=== PATIENT | female | born 1975 | race Caucasian/White ===

== ENCOUNTER → 2018-05-28 09:00 | Outpatient (CLI) | payer MEDICARE, MEDICAID, SELFPAY | PROVIDERS: PCP Nurse Practitioner Family; Visit Provider Orthopaedic Surgery | DX: Z47.89 Encounter for other orthopedic aftercare (principal); M89.8X7 Other specified disorders of bone, ankle and foot; M25.572 Pain in left ankle and joints of left foot; M76.822 Posterior tibial tendinitis, left leg ==

== ENCOUNTER → 2018-06-25 10:52 | Outpatient (BNVA) | payer MEDICARE, MEDICAID, SELFPAY | PROVIDERS: Visit Provider Orthopaedic Surgery | DX: Z47.89 Encounter for other orthopedic aftercare (principal); M89.8X7 Other specified disorders of bone, ankle and foot | CPT/HCPCS: 99213 ==

== ENCOUNTER 2018-06-25 11:12 | Outpatient (REF) | payer MEDICARE, MEDICAID, SELFPAY ==
[2018-06-25 12:43] LABS: Bilirubin Negative (Negative); Blood Negative (Negative); Clarity Clear; Glucose Negative (Negative); Ketones Negative (Negative); Leukocyte Esterase Negative (Negative); Nitrite Negative (Negative); Urobilinogen 0.2 EU/dL (Up TO 0.2)
== END 2018-06-25 11:32 ==
LOC: NCHCN 11:12
PROVIDERS: PCP Nurse Practitioner Family; Visit Provider Nurse Practitioner
DX: R35.0 Frequency of micturition (principal)
CPT/HCPCS: 81003

== ENCOUNTER 2018-09-03 09:29 | Outpatient (CLI) | payer MEDICARE, MEDICAID, SELFPAY ==
--- NOTE | 2018-09-03 13:09 | DI.RAD_ITS ---
SYMPTOMS/DIAGNOSIS: COUGH, R05 PA AND LATERAL CHEST: The heart is normal in size. The lungs are clear. The mediastinal structures and pleura appear intact. CONCLUSION: Normal chest.
== END 2018-09-03 09:49 ==
PROVIDERS: PCP Nurse Practitioner Family; Visit Provider Nurse Practitioner Family
DX: R05 Cough (principal)
CPT/HCPCS: 71046

== ENCOUNTER 2018-12-05 12:18 | Outpatient (REF) | payer MEDICARE, MEDICAID, SELFPAY ==
[2018-12-05 13:13] LABS: HCT 47.2 % (36.0-46.0); HGB 15.9 g/dL (12.0-15.5); Mean Corp. HGB Concentration 33.7 g/dL (32.0-36.0); Mean Corpuscular Hemoglobin 26.9 pg (27.0-33.0); Mean Corpuscular Volume 79.9 fL (80-95); Mean Platelet Volume 9.9 fL (8.0-11.0); Platelet Count 289 x1000/uL (130-400); RBC 5.91 m/cumm (4.00-5.20); RBC Distribution Width 14.9 % (11.7-14.6); White Blood Cell Count 11.56 k/cumm (4.4-10.8)
[2018-12-05 13:35] LABS: Anion Gap 9.3 mmol/L (3-11); BUN 19 mg/dL (7-18); CO2 28.7 mmol/L (21.0-32.0); CREATININE 1.05 mg/dL (0.55-1.02); Calcium 9.4 mg/dL (8.5-10.1); Chloride 101 mmol/L (98-107); Estimated GFR 56.67 (mL/min/1.73m2); Glucose 115 mg/dL (70-100); Potassium 4.1 mmol/L (3.5-5.1); Sodium 139 mmol/L (136-145); TSH (W/Ref FT4) 2.95 uIU/mL (0.358-3.74)
== END 2018-12-05 12:38 ==
LOC: NCHCN 12:18
PROVIDERS: PCP Nurse Practitioner Family; Visit Provider Nurse Practitioner Family
DX: E03.9 Hypothyroidism, unspecified (principal); I10 Essential (primary) hypertension; R53.83 Other fatigue
CPT/HCPCS: 80048; 85027; 84443

== ENCOUNTER 2018-12-30 00:49 | Outpatient (CLI) | payer MEDICARE, MEDICAID, SELFPAY ==
--- NOTE | 2018-12-30 10:23 | DI.US_ITS ---
SYMPTOMS/DIAGNOSIS: LOCALIZED SWELLING ON NECK, R22.1 THYROID ULTRASOUND: Thyroid ultrasound was performed according to the usual protocol. Right thyroid lobe measures 46 x 15 x 10 mm and left thyroid lobe measures 71 x 34 x 55 mm. There is a large, predominantly cystic but complex mass of the left thyroid lobe measuring up to about 5 cm in diameter. There is a solid 21 mm in diameter mass of the upper pole of the right thyroid lobe. CONCLUSION: Bilateral dominant thyroid masses. No previous examinations available for comparison. Biopsy may be considered if clinically appropriate to exclude carcinoma.
== END 2018-12-30 01:09 ==
PROVIDERS: PCP Nurse Practitioner Family; Visit Provider Nurse Practitioner Family
DX: R22.1 Localized swelling, mass and lump, neck (principal); D49.7 Neoplasm of unspecified behavior of endocrine glands and other parts of nervous system
CPT/HCPCS: 76536

== ENCOUNTER → 2019-09-30 08:44 | Outpatient (BNVA) | payer MEDICARE, MEDICAID, SELFPAY | PROVIDERS: PCP Student in an Organized Health Care Education/Training Program; Referring Provider Student in an Organized Health Care Education/Training Program; Visit Provider Surgery | DX: K21.9 Gastro-esophageal reflux disease without esophagitis (principal); I10 Essential (primary) hypertension | CPT/HCPCS: 99202; 99213 ==

== ENCOUNTER 2019-10-08 06:12 | Day surgery (SDC) | payer MEDICARE, MEDICAID, SELFPAY ==
[2019-10-08 06:25] VITALS: BP 124/81; PULSE 72; RESP 16; TEMP 36.7; O2SAT 96
--- NOTE | 2019-10-08 06:41 | ENDO_ITS ---
Date of service: 10/08/19 Time of Service: 07:56 Endoscopy Report DATE OF PROCEDURE: 10/08/19 PRE-OP DIAGNOSIS: GERD POST-OP DIAGNOSIS: other (mild gastritis) PROCEDURE: EGD with bx SURGEON: Steph Paula ANESTHESIA: other (General/ ASA 2/ Krish Cuevas, STEPHANIE) ESTIMATED BLOOD LOSS: 3 PATHOLOGY: other (Pylorus bx, Antrum bx) COMPLICATIONS: None DISPOSITION: same day INDICATIONS: Mrs. Alejandre is a pleasant 44-year-old female who has been having some reflux symptoms for a few years. She was started on pantoprazole 20 mg daily which has helped quite a bit with her symptoms. She still continues to have episodes of waking up in the morning choking on acid. This happens about 1-2 times a month. She does not have any dysphasia. She has not noted any hoarseness, or weight loss. FINDINGS: mild inflammation in the body of the stomach, moderate inflammation around the pylorus PROCEDURE DESCRIPTION: After informed consent was obtained the patient was take to the procedure room and placed in a supine position. Monitors were applied and a time out was done. The patients name, date of , procedure type, allergies to medications and metal in their body was reviewed. A bite block was placed and the patient was sedated. Once sedated and comfortable the gastroscope was advanced through the oropharynx which was grossly normal into the esophagus. The esophagus was noted to be normal. The scope was advanced into the stomach and through the pylorus into the 3rd portion of the duodenum. The duodenum was noted to be normal. A small amount of food was noted within the duodenum. The scope was retracted back into the stomach. Moderate inflammation was noted around the pylorus and mild inflammation was noted in the antrum. Biopsies were done of the antrum to rule out H. pylori. There were no ulcers. Biopsies were also done of the pylorus. The scope was retro-flexed. The cardia and fundus were noted to be normal. There was no hiatal hernia noted. The scope was retracted back into the esophagus. The Z line was regular. The GE junction was at 35 cm. The scope was removed and the patient was woken up and taken back to [facility] in stable condition. Follow up: 2 weeks in the office
--- NOTE | 2019-10-08 06:52 | W.PM.DSUDISC ---
Discharge Plan Disposition Patient Disposition: HOME Condition: Good Discharge Details Reason For Visit: GERD Attending Provider: Steph Paula Primary Care Provider: Brittany Muhammad Home Meds and New Rx's Prescriptions: New pantoprazole 40 mg tablet,delayed release (DR/EC) 40 mg PO DAILY Qty: 30 RF: 0 Continued lamotrigine [Subvenite] 200 mg tablet 200 mg PO DAILY Qty: 90 RF: 3 gabapentin 600 mg tablet 600 mg PO BID Qty: 90 RF: 6 citalopram 20 mg tablet 20 mg PO DAILY Qty: 90 RF: 1 Hold Instructions: Changed by Provider losartan 25 mg tablet 25 mg PO DAILY Qty: 90 RF: 3 hydrochlorothiazide 12.5 mg tablet 12.5 mg PO DAILY Qty: 90 RF: 3 levothyroxine 137 mcg tablet 137 mcg PO DAILY RF: 0 albuterol sulfate [ProAir HFA] 90 mcg/actuation HFA aerosol inhaler 2 puff IH Q6H PRN (Reason: shortness of breath or wheezing) Qty: 8.5 RF: 1 clonazepam 0.5 mg tablet 0.5 mg PO QHS Qty: 20 RF: 1 triamcinolone acetonide 0.5 % ointment 1 applic TP TID Qty: 30 RF: 1 norgestimate-ethinyl estradiol 0.18/0.215/0.25 mg-25 mcg tablet 1 tab PO DAILY RF: 0 Discontinued pantoprazole 20 mg tablet,delayed release (DR/EC) 20 mg PO DAILY Qty: 90 RF: 3 Discharge Instructions Instructions: Gastritis (DC), Diet for Stomach Ulcers and Gastritis (GEN) Additional Instructions: Findings: Gastritis Follow up: 2 weeks Medication: Increase Pantoprazole to 40 mg daily for 30 days Please call if you develop: fevers >101.5 Nausea or Vomiting Abdominal pain that is not transient DAY SURGERY UNIT POST ENDOSCOPY INSTRUCTIONS 1. Because there will be medication in your system for the next 24 hours, you may feel a little sleepy. Your coordination will be affected. Therefore: a. Do not drive or operate dangerous equipment for 24 hours. b. Do not drink alcohol beverages for 24 hours (not even beer). c. Plan to go home and rest for the day. 2. Generally there are no restrictions on your activity after a day or so has gone by, but you may feel a bit fatigued for a few days. 3 After you arrive home you may have a light meal and return to a normal diet as you can tolerate it without feeling sick to your stomach. 4. After surgery, you may feel pain or discomfort. This should be only transient, but if it persists please contact your doctor. 5. If there are any questions regarding the findings of your procedure, please feel free to contact your doctor. 6. If you are unable to contact your doctor with a problem, contact the hospital at [phone]. 7. Continue all your regular medications unless directed otherwise. I understand the above instructions and have no questions. Signature of Patient or Responsible Adult Escort Date/Time Name of Responsible Adult Escort Signature of Nurse Date/Time Activity:: Activity as Tolerated Diet:: low acid Discharge Orders Discharge Orders: Discharge Order (Routine); Ordered 10/08/19 Ordered By: Steph Paula DS: Diagnosis Discharge Diagnosis (1) Gastritis determined by endoscopy: Status: Acute
[2019-10-08] MEDS: Lactated Ringers 1,000 ML 80 ML IV (07:00)
--- NOTE | 2019-10-08 07:48 | STOM_PTH ---
PATIENT: Genie Alejandre LOC: [facility] U#:[id number] AGE/SX: 44/F ROOM: RE10/08/[address]: Steph Paula MD : 1975 BED: DIS: 10/08/2019 SPEC #: [id number] RECD: 10/08/19 12:37 STATUS: SATHYA REQ #: [id number] KRZYSZTOF: 10/08/19 07:[address]: Steph Paula DEPT: Surgical Specimen RECD BY: Jamia Hendrickson ENTERED: 10/08/19 12:41 SP TYPE: STOMACH OTHR DR: Brittany Muhammad DO Tissues: 1 - STOMACH BIOPSY 2 - STOMACH BIOPSY Procedures: GROSS AND MICRO LEVEL 4 IMMUNOPEROXIDASE STAIN Comments: [id number]
[2019-10-08 08:32] VITALS: BP 107/69; PULSE 67; RESP 16; TEMP 36.3; O2SAT 98
== END 2019-10-08 08:56 | disposition home or self-care (01) ==
PROVIDERS: PCP Student in an Organized Health Care Education/Training Program; Visit Provider Surgery
PROC: 0DJ68ZZ Inspection of Stomach, Via Natural or Artificial Opening Endoscopic (ICD-10-PCS; CPT 43235; principal; 2019-10-08 07:30)
DX: K21.9 Gastro-esophageal reflux disease without esophagitis (principal); K29.00 Acute gastritis without bleeding; K31.89 Other diseases of stomach and duodenum; I10 Essential (primary) hypertension; G47.33 Obstructive sleep apnea (adult) (pediatric)
CPT/HCPCS: 43239; 81025; 88305; 88361; J2001

== ENCOUNTER → 2019-10-21 09:20 | Outpatient (BNVA) | payer MEDICARE, MEDICAID, SELFPAY | PROVIDERS: PCP Student in an Organized Health Care Education/Training Program; Referring Provider Student in an Organized Health Care Education/Training Program; Visit Provider Surgery | DX: K29.60 Other gastritis without bleeding (principal) | CPT/HCPCS: 99212; 99213 ==

== ENCOUNTER 2019-11-19 03:22 | Outpatient (CLI) | payer MEDICARE, MEDICAID, SELFPAY ==
[2019-11-19 15:30] LABS: Anion Gap 9.9 mmol/L (3-11); BUN 18 mg/dL (7-18); CO2 26.1 mmol/L (21.0-32.0); CREATININE 1.15 mg/dL (0.55-1.02); Calcium 9.4 mg/dL (8.5-10.1); Chloride 104 mmol/L (98-107); Glucose 141 mg/dL (74-106); Potassium 4.7 mmol/L (3.5-5.1); Sodium 140 mmol/L (136-145)
== END 2019-11-19 03:42 ==
PROVIDERS: PCP Student in an Organized Health Care Education/Training Program; Visit Provider Student in an Organized Health Care Education/Training Program
DX: E28.2 Polycystic ovarian syndrome (principal)
CPT/HCPCS: 36415; 80048

== ENCOUNTER 2020-02-13 02:14 | Outpatient (CLI) | payer MEDICARE, MEDICAID, SELFPAY ==
[2020-02-13 14:33] LABS: HCT 42.2 % (36.0-46.0); HGB 14.1 g/dL (12.0-15.5); Mean Corp. HGB Concentration 33.4 g/dL (32.0-36.0); Mean Corpuscular Hemoglobin 27.2 pg (27.0-33.0); Mean Corpuscular Volume 81.3 fL (80-95); Mean Platelet Volume 9.3 fL (8.0-11.0); Platelet Count 299 x1000/uL (130-400); RBC 5.19 m/cumm (4.00-5.20); RBC Distribution Width 14.4 % (11.7-14.6); White Blood Cell Count 12.41 k/cumm (4.4-10.8)
[2020-02-13 14:42] LABS: Hemoglobin A1C 6.3 % (3.8-5.6)
[2020-02-13 15:20] LABS: ALT 17 U/L (14-59); AST 17 U/L (15-37); Albumin 3.1 g/dL (3.4-5.0); Alkaline Phosphatase 64 U/L (46-116); BUN 18 mg/dL (7-18); Bilirubin, Total 0.3 mg/dL (0.2-1.0); CREATININE 1.26 mg/dL (0.55-1.02); Calcium 9.1 mg/dL (8.5-10.1); Chloride 100 mmol/L (98-107); Estimated GFR 45.72 (mL/min/1.73m2); Glucose 134 mg/dL (74-106); Potassium 4.2 mmol/L (3.5-5.1); Sodium 133 mmol/L (136-145); Total Protein 6.3 g/dL (6.4-8.2)
== END 2020-02-13 02:34 ==
PROVIDERS: PCP Student in an Organized Health Care Education/Training Program; Visit Provider Student in an Organized Health Care Education/Training Program
DX: I10 Essential (primary) hypertension (principal); E11.9 Type 2 diabetes mellitus without complications; E28.2 Polycystic ovarian syndrome; R53.83 Other fatigue; K29.70 Gastritis, unspecified, without bleeding; J45.909 Unspecified asthma, uncomplicated; G47.33 Obstructive sleep apnea (adult) (pediatric)
CPT/HCPCS: 36415; 80053; 85027; 83036

== ENCOUNTER 2020-03-10 00:29 | Outpatient (CLI) | payer MEDICARE, MEDICAID, SELFPAY ==
--- NOTE | 2020-03-10 07:15 | DI.US_ITS ---
EXAM: US RENAL CLINICAL HISTORY: HYPERTENSION,F/U ANGIOLIPOMA RT KIDNEY,H/O RENAL IMPAIRMENT,D17.71. TECHNIQUE: Pacheco scale, color and spectral Doppler were used. COMPARISON: CT UPPER ABD W/WO CONTRAST(P) from 04/11/2013 FINDINGS: Renal size in cm: Right: 10.8 left: 10.7 Echogenicity: Normal. Hydronephrosis: No. Cyst or mass: There is a hyperechoic mass in the midpole of the right kidney corresponding to the pat ient's known angiomyolipoma. Concurrently, it measures 3.4 x 3.3 x 4.2 cm compared with 2.6 x 1.5 x 2.7 cm. Nephrolithiasis: No. Other findings: None. Bladder:The bladder was inadequately distended for sonographic evaluation. Ureteral jets: Right: Not visualized Left: Not visualized Prevoid vol:4 cc cc Postvoid vol:Not performed during the examination. Cc DOPPLER FINDINGS: Normal and symmetric blood flow is noted to the kidneys. IMPRESSION: 1. Interval increase in size of hyperechoic mass in the right kidney since 2012. Sonographically, th e findings are suggestive of a lesion such as an angiomyolipoma. 2. Nondiagnostic examination for the urinary bladder due to inadequate preparation. DATA REPOSITORY:
== END 2020-03-10 00:49 ==
PROVIDERS: PCP Student in an Organized Health Care Education/Training Program; Visit Provider Student in an Organized Health Care Education/Training Program
DX: D17.71 Benign lipomatous neoplasm of kidney (principal); I10 Essential (primary) hypertension; Z87.448 Personal history of other diseases of urinary system
CPT/HCPCS: 76770

== ENCOUNTER 2020-05-04 09:10 | Outpatient (CLI) | payer MEDICARE, MEDICAID, SELFPAY ==
[2020-05-06 15:16] LABS: SARS-CoV-2 RNA Undetected (Undetected); SARS-CoV-2 Specimen Source Nasopharynx
== END 2020-05-04 09:30 ==
PROVIDERS: PCP Student in an Organized Health Care Education/Training Program; Visit Provider Nurse Practitioner Adult Health
DX: Z11.59 Encounter for screening for other viral diseases (principal); R05 Cough; R53.83 Other fatigue; R51 Headache
CPT/HCPCS: U0003

== ENCOUNTER 2020-05-14 04:37 | Outpatient (CLI) | payer MEDICARE, MEDICAID, SELFPAY ==
[2020-05-14 13:17] LABS: Anion Gap 10.9 mmol/L (3-11); BUN 16 mg/dL (7-18); CO2 22.1 mmol/L (21.0-32.0); CREATININE 1.31 mg/dL (0.55-1.02); Calcium 9.4 mg/dL (8.5-10.1); Chloride 103 mmol/L (98-107); Estimated GFR 43.52 (mL/min/1.73m2); Glucose 165 mg/dL (74-106); Potassium 4.3 mmol/L (3.5-5.1); Sodium 136 mmol/L (136-145); TSH (W/Ref FT4) 6.51 uIU/mL (0.36-3.74)
[2020-05-14 13:36] LABS: FREE T4 1.77 ng/dL (0.76-1.46)
== END 2020-05-14 04:57 ==
PROVIDERS: PCP Student in an Organized Health Care Education/Training Program; Visit Provider Student in an Organized Health Care Education/Training Program
DX: I10 Essential (primary) hypertension (principal)
CPT/HCPCS: 36415; 80048; 84439; 84443

== ENCOUNTER 2020-06-16 00:52 | Outpatient (CLI) | payer MEDICARE, MEDICAID, SELFPAY ==
--- NOTE | 2020-06-16 12:00 | DI.MAMMO_ITS ---
EXAM: MAMMO SCREENING CLINICAL HISTORY: screening,Z12.39 TECHNIQUE: Mammograms were interpreted according to the usual protocol including computer analysis w [employer] CAD system, tomosynthesis and C-view imaging. COMPARISON: FINDINGS: The breasts are of moderate density with fairly symmetrical distribution of fibroglandular tissue. N o dominant mass or clumped microcalcification is identified in either breast. Current examination is a baseline examination. IMPRESSION: No specific evidence of malignancy at this time. Routine screening examinations are suggested at yea rly intervals in this age group according to the ACS ACR guidelines. BI-RADS Category 1 - Negative Breast Density - Category B - Scattered areas of fibroglandular density
== END 2020-06-16 01:12 ==
PROVIDERS: PCP Student in an Organized Health Care Education/Training Program; Visit Provider Student in an Organized Health Care Education/Training Program
DX: Z12.31 Encounter for screening mammogram for malignant neoplasm of breast (principal)
CPT/HCPCS: 77063; 77067

== ENCOUNTER 2020-06-18 02:13 | Outpatient (CLI) | payer MEDICARE, MEDICAID, SELFPAY ==
[2020-06-18 13:48] LABS: Anion Gap 13.7 mmol/L (3-11); BUN 17 mg/dL (7-18); CO2 22.3 mmol/L (21.0-32.0); CREATININE 1.36 mg/dL (0.55-1.02); Calcium 9.6 mg/dL (8.5-10.1); Chloride 101 mmol/L (98-107); Estimated GFR 41.68 (mL/min/1.73m2); Glucose 138 mg/dL (74-106); Potassium 4.5 mmol/L (3.5-5.1); Sodium 137 mmol/L (136-145)
== END 2020-06-18 02:33 ==
PROVIDERS: PCP Student in an Organized Health Care Education/Training Program; Visit Provider Nurse Practitioner Family
DX: R73.03 Prediabetes (principal); E88.81 Metabolic syndrome and other insulin resistance; N28.9 Disorder of kidney and ureter, unspecified
CPT/HCPCS: 36415; 80048; 83036

== ENCOUNTER 2020-07-06 01:28 | Outpatient (CLI) | payer MEDICARE, MEDICAID, SELFPAY ==
[2020-07-06 13:43] LABS: Anion Gap 10.8 mmol/L (3-11); BUN 16 mg/dL (7-18); CO2 23.2 mmol/L (21.0-32.0); CREATININE 1.22 mg/dL (0.55-1.02); Calcium 10.1 mg/dL (8.5-10.1); Chloride 101 mmol/L (98-107); Estimated GFR 47.24 (mL/min/1.73m2); Glucose 138 mg/dL (74-106); Potassium 4.2 mmol/L (3.5-5.1); Sodium 135 mmol/L (136-145); TSH (W/Ref FT4) 0.94 uIU/mL (0.36-3.74)
== END 2020-07-06 01:48 ==
PROVIDERS: PCP Student in an Organized Health Care Education/Training Program; Visit Provider Nurse Practitioner Family
DX: E03.9 Hypothyroidism, unspecified (principal); R73.09 Other abnormal glucose; N28.9 Disorder of kidney and ureter, unspecified; E88.81 Metabolic syndrome and other insulin resistance
CPT/HCPCS: 36415; 80048; 83036; 84443

== ENCOUNTER 2020-08-02 03:31 | Outpatient (CLI) | payer MEDICARE, MEDICAID, SELFPAY ==
[2020-08-02 10:30] LABS: Anion Gap 11.1 mmol/L (3-11); BUN 24 mg/dL (7-18); CO2 22.9 mmol/L (21.0-32.0); CREATININE 1.71 mg/dL (0.55-1.02); Calcium 10.1 mg/dL (8.5-10.1); Chloride 100 mmol/L (98-107); Glucose 147 mg/dL (74-106); Potassium 4.2 mmol/L (3.5-5.1); Sodium 134 mmol/L (136-145)
[2020-08-02 10:46] LABS: TSH 1.39 uIU/mL (0.36-3.74)
[2020-08-02 10:58] LABS: Vitamin D 25 Total 30.7 ng/ml (30-100)
[2020-08-12 11:36] LABS: Thyroglobulin Antibody <15.0 IU/mL (<=60)
== END 2020-08-02 03:51 ==
PROVIDERS: Internal Medicine Endocrinology, Diabetes & Metabolism; PCP Student in an Organized Health Care Education/Training Program; Visit Provider Student in an Organized Health Care Education/Training Program
DX: E55.9 Vitamin D deficiency, unspecified (principal); E03.9 Hypothyroidism, unspecified; I10 Essential (primary) hypertension; N17.9 Acute kidney failure, unspecified
CPT/HCPCS: 36415; 80048; 82306; 84443; 86800

== ENCOUNTER 2020-09-07 04:27 | Outpatient (CLI) | payer MEDICARE, MEDICAID, SELFPAY ==
[2020-09-07 10:10] LABS: Anion Gap 12.3 mmol/L (3-11); BUN 19 mg/dL (7-18); CO2 24.7 mmol/L (21.0-32.0); Calcium 10.3 mg/dL (8.5-10.1); Chloride 100 mmol/L (98-107); Estimated GFR 40.31 (mL/min/1.73m2); Glucose 205 mg/dL (74-106); Sodium 137 mmol/L (136-145)
== END 2020-09-07 04:47 ==
PROVIDERS: PCP Student in an Organized Health Care Education/Training Program; Visit Provider Student in an Organized Health Care Education/Training Program
DX: R73.03 Prediabetes (principal); R79.89 Other specified abnormal findings of blood chemistry
CPT/HCPCS: 36415; 80048

== ENCOUNTER 2020-10-05 01:39 | Outpatient (CLI) | payer MEDICARE, MEDICAID, SELFPAY ==
--- NOTE | 2020-10-05 07:30 | DI.US_ITS ---
EXAM: US THYROID CLINICAL HISTORY: 9 mo FU: Thyroid masses, s/p excision,LT THYROID NODULE,E03.9,E04.1. TECHNIQUE: Ultrasound thyroid performed using standard protocol. COMPARISON: US US thyroid from 12/30/2018 FINDINGS: The patient is status post complete thyroidectomy. No soft tissue is seen in the thyroid bed. Superior to the thyroid bed in the midline neck, there is a homogeneous well-circumscribed hypoechoic avascular mass measuring 0.8 x 0.5 x 0.7 cm. There are several sonographically benign-appearing lymph nodes in the left neck. They are ovoid are ovoid and echogenic with a hypoechoic rim. The largest measures 0.9 x 0.4 x 0.7 cm. IMPRESSION: 1. Status post complete thyroidectomy since the prior examination from 12/30/2018. 2. Hypoechoic avascular 0.8 cm soft tissue mass in the midline of the neck superior to the thyroid be d. This finding is nonspecific. If there is concern for residual thyroid tissue, nuclear medicine t hyroid scan may be obtained. A CT scan of the neck with contrast may also be considered for further evaluation. DATA REPOSITORY:
== END 2020-10-05 01:59 ==
PROVIDERS: PCP Student in an Organized Health Care Education/Training Program; Visit Provider Student in an Organized Health Care Education/Training Program
DX: E04.1 Nontoxic single thyroid nodule (principal); E03.9 Hypothyroidism, unspecified; R22.1 Localized swelling, mass and lump, neck; Z90.89 Acquired absence of other organs; K21.9 Gastro-esophageal reflux disease without esophagitis; R10.10 Upper abdominal pain, unspecified
CPT/HCPCS: 99213; 99214; 76536

== ENCOUNTER 2020-10-07 02:09 | Outpatient (CLI) | payer MEDICARE, MEDICAID, SELFPAY ==
[2020-10-08 15:57] LABS: COVID-19 RT-PCR UVMMC Result Negative (Negative)
== END 2020-10-07 02:29 ==
PROVIDERS: PCP Student in an Organized Health Care Education/Training Program; Visit Provider Surgery
DX: Z11.59 Encounter for screening for other viral diseases (principal); Z01.818 Encounter for other preprocedural examination
CPT/HCPCS: U0003

== ENCOUNTER 2020-10-11 12:53 | Day surgery (SDC) | payer MEDICARE, MEDICAID, SELFPAY ==
--- NOTE | 2020-10-11 07:04 | ENDO_ITS ---
Date of service: 10/11/20 Time of Service: 11:05 Endoscopy Report DATE OF PROCEDURE: 10/11/20 PRE-OP DIAGNOSIS: GERD POST-OP DIAGNOSIS: same PROCEDURE: EGD with biopsies SURGEON: Steph Paula ANESTHESIA: other (General/ASA 2/ Cristian Kapoor, STEPHANIE) COMPLICATIONS: None DISPOSITION: same day INDICATIONS: Genie is back to see me today because she has had some new symptoms pop up over the last couple of months. She has been having some pain after eating a few bites. Also some upper abdominal pain which sounds like heartburn. She is also had intermittent nausea. She has not had any vomiting. She has been placed on Pepcid 20 mg twice daily because of worries about her long-term use of lansoprazole. She is only taking the Pepcid once a day sometimes twice a day. She was recently started on Carafate which she states has made a big difference. She has a history of erosive esophagitis diagnosed about a year ago. I recommend another scope to make sure that she has not developed any gastric ulcers. I will recheck her for H. pylori infection as well. If everything looks okay we may just increase her Pepcid to 40 mg twice daily and see if that controls her symptoms. If it does not control her symptoms she may have to be on a PPI long-term. Risks, benefits and complications have been reviewed. Complications include but are not limited to bleeding, pain, perforation, sore throat, aspiration, and adverse reaction to the medications. Questions were entertained and answered to their satisfaction and they wished to proceed. No guarantees were given or implied. COVID-19 testing explained to the patient. Reason for test reviewed. Quarantine per state requirements reviewed with patient. Patient understands and agrees to testing. PREP: Miralax/Dulcolax PROCEDURE START TIME: 12:06 FINDINGS: Mild inflammation of the stomach and esophagus. PROCEDURE DESCRIPTION: After informed consent was obtained the patient was take to the procedure room and placed in a supine position. Monitors were applied and a time out was done. The patients name, date of , procedure type, allergies to medications and metal in their body was reviewed. A bite block was placed and the patient was sedated. Once sedated and comfortable the gastroscope was advanced through the oropharynx which was grossly normal into the esophagus. The proximal and mid- esophagus were normal. In the distal esophagus there was mild inflammation noted. The scope was advanced into the stomach and through the pylorus into the 3rd portion of the duodenum. The duodenum was noted to be normal. Biopsies were done to rule out H. Pylori. The scope was retracted back into the stomach. There was mild inflammation noted of the antrum. Biopsies were done to rule out H. pylori. There were no ulcers. The scope was retro-flexed. The cardia and fundus were noted to be normal. There was no hiatal hernia noted. The scope was retracted back into the esophagus and biopsies were done of the GE junction to rule out Vann's. The Z line was regular. The GE junction was at 38 cm. The scope was removed and the patient was woken up and taken back to [facility] in stable condition. Follow up: 2 weeks in the office. Increase Pepcid to 40 mg BID
--- NOTE | 2020-10-11 07:05 | W.PM.DSUDISC ---
Discharge Plan Disposition Patient Disposition: HOME Condition: Good Discharge Details Reason For Visit: GERD Attending Provider: Steph Paula Primary Care Provider: Brittany Muhammad Home Meds and New Rx's Prescriptions: New famotidine 40 mg tablet 40 mg PO BID Qty: 60 RF: 3 Continued (DME) glucometer Qty: 1 RF: 0 (DME) Blood Glucose Test Strip See Rx Instructions .ROUTE .MEDSUPPLY Qty: 100 RF: 3 (DME) lancets Misc See Rx Instructions .ROUTE .MEDSUPPLY Qty: 100 RF: 3 albuterol sulfate [ProAir HFA] 90 mcg/actuation HFA aerosol inhaler 2 puff IH Q6H PRN (Reason: shortness of breath or wheezing) Qty: 8.5 RF: 1 triamcinolone acetonide 0.5 % ointment 1 applic TP TID Qty: 30 RF: 1 spironolactone 50 mg tablet 50 mg PO BID Qty: 180 RF: 3 diphenhydramine HCl [Benadryl] 25 mg capsule 25 mg PO QHS PRN (Reason: sleep) Qty: 100 RF: 0 loratadine [Claritin] 10 mg tablet 10 mg PO DAILY Qty: 90 RF: 1 losartan 25 mg tablet 12.5 mg PO DAILY Qty: 45 RF: 3 Vyvanse 10 mg capsule 10 mg PO QAM MDD 70 Qty: 90 RF: 0 fluticasone propionate [Allergy Relief (fluticasone)] 50 mcg/actuation spray,suspension 1 spray CATHERINE BID Qty: 15.8 RF: 0 sucralfate 100 mg/mL suspension 10 ml PO BID Qty: 200 RF: 1 desonide [Desonate] 0.05 % gel 1 applic topical QD-BID PRN (Reason: skin irritation) Qty: 60 RF: 1 Hold Instructions: Home Medication placed on hold at Doctor's office lisdexamfetamine 60 mg capsule 60 mg PO DAILY MDD 70 Qty: 90 RF: 0 (DME) glucometer Qty: 1 RF: 0 lorazepam 1 mg tablet 1 mg PO QHS PRN (Reason: anxiety) Qty: 30 RF: 0 levothyroxine 137 mcg tablet 200 mcg PO DAILY RF: 0 metformin 500 mg tablet 500 mg PO BID RF: 0 norgestimate-ethinyl estradiol [Tri-Sprintec (28)] 0.18/0.215/0.25 mg-35 mcg (28) tablet 1 tab PO DAILY Qty: 84 RF: 3 desonide 0.05 % cream 1 applic topical BID Qty: 60 RF: 1 lamotrigine 150 mg tablet 300 mg PO DAILY MDD 250 Qty: 180 RF: 3 Discontinued famotidine 20 mg tablet 20 mg PO BID Qty: 180 RF: 1 Discharge Instructions Additional Instructions: Findings: mild inflammation in the stomach and esophagus Follow up: 2 weeks in the office Please call if you develop: fevers >101.5 Nausea or Vomiting Abdominal pain that is not transient DAY SURGERY UNIT POST ENDOSCOPY INSTRUCTIONS 1. Because there will be medication in your system for the next 24 hours, you may feel a little sleepy. Your coordination will be affected. Therefore: a. Do not drive or operate dangerous equipment for 24 hours. b. Do not drink alcohol beverages for 24 hours (not even beer). c. Plan to go home and rest for the day. 2. Generally there are no restrictions on your activity after a day or so has gone by, but you may feel a bit fatigued for a few days. 3 After you arrive home you may have a light meal and return to a normal diet as you can tolerate it without feeling sick to your stomach. 4. After surgery, you may feel pain or discomfort. This should be only transient, but if it persists please contact your doctor. 5. If there are any questions regarding the findings of your procedure, please feel free to contact your doctor. 6. If you are unable to contact your doctor with a problem, contact the hospital at [phone]. 7. Continue all your regular medications unless directed otherwise. I understand the above instructions and have no questions. Signature of Patient or Responsible Adult Escort Date/Time Name of Responsible Adult Escort Signature of Nurse Date/Time Referrals: Steph Paula MD [ [facility] STAFF PHYSICIAN] - 10/22/20 10:00 am Activity:: Activity as Tolerated Diet:: As Tolerated Discharge Orders Discharge Orders: Discharge Order (Routine); Ordered 10/11/20 Ordered By: Steph Paula
[2020-10-11 13:00] VITALS: BP 137/95; PULSE 83; RESP 18; TEMP 36.5; O2SAT 99
[2020-10-11] MEDS: Lactated Ringers 1,000 ML 80 ML IV (13:46)
--- NOTE | 2020-10-11 14:07 | STOM_PTH ---
PATIENT: Gneie Alejandre LOC: [facility] U#:[id number] AGE/SX: 45/F ROOM: RE10/11/[address]: Steph Paula MD : 1975 BED: DIS: 10/11/2020 SPEC #: [id number] RECD: 10/11/20 15:31 STATUS: SATHYA RE #: [id number] KRZYSZTOF: 10/11/20 14:[address]: Steph Paula DEPT: Surgical Specimen RECD BY: Jamia Hendrickson ENTERED: 10/11/20 15:32 SP TYPE: STOMACH OTHR DR: Brittany Muhammad DO Tissues: 1 - BIOPSY BOWEL 2 - STOMACH BIOPSY 3 - ESOPHAGUS BIOPSY Procedures: GROSS AND MICRO LEVEL 4 Comments: [id number]
== END 2020-10-11 15:20 | disposition home or self-care (01) ==
LOC: SUR 12:54
PROVIDERS: PCP Student in an Organized Health Care Education/Training Program; Visit Provider Surgery
PROC: 0DJ68ZZ Inspection of Stomach, Via Natural or Artificial Opening Endoscopic (ICD-10-PCS; CPT 43235; principal; 2020-10-11 14:30)
DX: K21.00 Gastro-esophageal reflux disease with esophagitis, without bleeding (principal); K29.70 Gastritis, unspecified, without bleeding; J45.909 Unspecified asthma, uncomplicated; I10 Essential (primary) hypertension; G47.33 Obstructive sleep apnea (adult) (pediatric)
CPT/HCPCS: 43239; 81025; 88305; J2001

== ENCOUNTER → 2020-10-22 09:58 | Outpatient (BNVA) | payer MEDICARE, MEDICAID, SELFPAY | PROVIDERS: PCP Student in an Organized Health Care Education/Training Program; Referring Provider Student in an Organized Health Care Education/Training Program; Visit Provider Surgery | DX: Z48.815 Encounter for surgical aftercare following surgery on the digestive system (principal); K21.00 Gastro-esophageal reflux disease with esophagitis, without bleeding | CPT/HCPCS: 99212; 99214 ==

== ENCOUNTER 2020-12-14 02:52 | Outpatient (CLI) | payer MEDICARE, MEDICAID, SELFPAY ==
[2020-12-14 14:20] LABS: HCT 45.2 % (36.0-46.0); HGB 14.6 g/dL (11.2-15.7); MCH 25.7 pg (27.0-33.0); MCHC 32.3 % (32.0-36.0); MCV 79.7 fL (80-95); MPV 8.8 fL (8.0-11.0); Platelet Count 373 10^3/uL (130-400); RBC 5.67 10^6/uL (3.93-5.22); RDW 13.5 % (11.7-14.6)
[2020-12-14 15:24] LABS: ALT 22 U/L (14-59); AST 14 U/L (15-37); Albumin 3.3 g/dL (3.4-5.0); Alkaline Phosphatase 71 U/L (46-116); Anion Gap 12.7 mmol/L (3-11); BUN 21 mg/dL (7-18); Bilirubin, Total 0.3 mg/dL (0.2-1.0); CO2 24.3 mmol/L (21.0-32.0); CREATININE 1.3 mg/dL (0.55-1.02); Calcium 9.7 mg/dL (8.5-10.1); Calculated LDL 72 mg/dL (<100); Chloride 99 mmol/L (98-107); Cholesterol 160 mg/dL (<200); Glucose 111 mg/dL (74-106); HDL Cholesterol 60 mg/dL (40-60); Magnesium 2.1 mg/dL (1.8-2.4); Potassium 4.8 mmol/L (3.5-5.1); Sodium 136 mmol/L (136-145); TSH (W/Ref FT4) 0.34 uIU/mL (0.36-3.74); Total Protein 6.9 g/dL (6.4-8.2); Triglyceride 141 mg/dL (<150)
[2020-12-14 15:44] LABS: FREE T4 2.07 ng/dL (0.76-1.46)
[2020-12-16 04:44] LABS: Vitamin D 25 Total 30.3 ng/ml (30-100)
== END 2020-12-14 02:53 | disposition home or self-care (01) ==
LOC: LBO 02:52
PROVIDERS: PCP Student in an Organized Health Care Education/Training Program; Visit Provider Student in an Organized Health Care Education/Training Program
DX: I10 Essential (primary) hypertension (principal); E78.5 Hyperlipidemia, unspecified; R79.89 Other specified abnormal findings of blood chemistry; E66.01 Morbid (severe) obesity due to excess calories; Z68.42 Body mass index [BMI] 45.0-49.9, adult; R73.03 Prediabetes; N17.9 Acute kidney failure, unspecified
CPT/HCPCS: 36415; 80053; 80061; 82306; 85027; 83735; 84439; 84443

== ENCOUNTER 2021-02-23 04:29 | Outpatient (CLI) | payer MEDICARE, MEDICAID, SELFPAY ==
[2021-02-23 11:12] LABS: Abs Immature Grans 0.06 10^3/uL (0.0-0.06); Absolute Basophil Count 0.01 10^3/uL (0.0-0.2); Absolute Lymphocyte Count 2.89 10^3/uL (1.2-3.4); Absolute Monocyte Count 0.89 10^3/uL (0.1-0.8); Basophils % 0.1; HCT 43.5 % (36.0-46.0); HGB 14.5 g/dL (11.2-15.7); Immature Grans % 0.6; Lymphocytes % 26.6; MCHC 33.3 % (32.0-36.0); MPV 8.8 fL (8.0-11.0); Monocytes % 8.2; Neutrophils % 64.5; Nucleated RBC 0 %; Platelet Count 304 10^3/uL (130-400); RBC 5.58 10^6/uL (3.93-5.22); RDW 14.5 % (11.7-14.6); RDW-SD 40.2 fL; WBC 10.86 10^3/uL (4.4-10.8)
[2021-02-23 11:20] LABS: Hemoglobin A1C 5.9 % (<5.7)
[2021-02-23 12:24] LABS: ALT 16 U/L (14-59); AST 12 U/L (15-37); Albumin 2.9 g/dL (3.4-5.0); Alkaline Phosphatase 70 U/L (46-116); Anion Gap 10.4 mmol/L (3-11); BUN 18 mg/dL (7-18); Bilirubin, Direct 0.1 mg/dL (0.0-0.2); Bilirubin, Total 0.3 mg/dL (0.2-1.0); CO2 24.6 mmol/L (21.0-32.0); CREATININE 1.1 mg/dL (0.55-1.02); Calcium 9.6 mg/dL (8.5-10.1); Chloride 103 mmol/L (98-107); Estimated GFR 53.24 (mL/min/1.73m2); Glucose 116 mg/dL (74-106); Potassium 4.5 mmol/L (3.5-5.1); Sodium 138 mmol/L (136-145); Total Protein 6.3 g/dL (6.4-8.2)
== END 2021-02-23 04:30 | disposition home or self-care (01) ==
LOC: LBO 04:29
PROVIDERS: PCP Student in an Organized Health Care Education/Training Program; Visit Provider Student in an Organized Health Care Education/Training Program
DX: R10.31 Right lower quadrant pain (principal); R79.89 Other specified abnormal findings of blood chemistry; R73.03 Prediabetes; K76.0 Fatty (change of) liver, not elsewhere classified; Z51.81 Encounter for therapeutic drug level monitoring
CPT/HCPCS: 36415; 80048; 80076; 83036; 84443; 85025

== ENCOUNTER 2021-03-09 01:36 | Outpatient (CLI) | payer MEDICARE, MEDICAID, SELFPAY ==
--- NOTE | 2021-03-09 07:30 | DI.US_ITS ---
Exam(s) US ABDOMEN RENAL EXAM: US ABDOMEN RENAL CLINICAL HISTORY: Evaluate rt flank, psoas mm. R/o calculi, pain with movement TECHNIQUE: Ultrasound abdomen performed using standard protocol. COMPARISON: CT UPPER ABD W/WO CONTRAST(P) from 04/11/2013 CT UPPER ABD W/WO CONTRAST(P) from 04/11/2013 FINDINGS: ABDOMINAL AORTA AND IVC: Visualized portions normal caliber. PANCREAS: Normal where visualized. LIVER: There is increased echogenicity consistent with fatty infiltration. Hepatopedal flow in the P ortal Vein. The liver measures 16.2 cm in length. GALLBLADDER: Status post cholecystectomy. BILIARY SYSTEM: Common bile duct measures < 7 mm. No intrahepatic biliary ductal dilation. SPLEEN: The spleen measures 13.2 cm in length. ASCITES: None seen. Renal size in cm: Right: 9.9. Left: 9.9. Echogenicity: Normal. Hydronephrosis: No. Cyst or mass: There is again seen a hyperechoic mass in the midpole of the right kidney. It measures 3.6 x 3.2 x 4.2 cm on the current examination compared with 3.4 x 3.3 x 4.2 cm. This is consistent with the patient's known angiomyolipoma. Nephrolithiasis: No. Other findings: None. Bladder:The bladder is poorly evaluated due to incomplete distension. Ureteral jets: Right: Visualized and unremarkable. Left: Visualized and unremarkable. Prevoid vol:23 cc Postvoid vol:0 cc Renal color flow: Symmetric and within normal limits. IMPRESSION: 1. Stable right renal mass consistent with the patient's known angiomyolipoma. 2. Status post cholecystectomy. 3. Fatty liver. 4. Mild splenomegaly. DATA REPOSITORY:
== END 2021-03-09 01:56 ==
PROVIDERS: PCP Student in an Organized Health Care Education/Training Program; Visit Provider Student in an Organized Health Care Education/Training Program
DX: R10.31 Right lower quadrant pain (principal); K76.0 Fatty (change of) liver, not elsewhere classified; R16.1 Splenomegaly, not elsewhere classified; N28.89 Other specified disorders of kidney and ureter; Z90.49 Acquired absence of other specified parts of digestive tract
CPT/HCPCS: 76770; 76700

== ENCOUNTER 2021-05-20 02:23 | Outpatient (CLI) | payer MEDICARE, MEDICAID, SELFPAY ==
[2021-05-20 15:54] LABS: Anion Gap 16.9 mmol/L (3-11); BUN 12 mg/dL (7-18); CO2 21.1 mmol/L (21.0-32.0); CREATININE 1.3 mg/dL (0.55-1.02); Calcium 9.7 mg/dL (8.5-10.1); Chloride 100 mmol/L (98-107); Estimated GFR 43.72 (mL/min/1.73m2); Glucose 167 mg/dL (74-106); Potassium 4.3 mmol/L (3.5-5.1); Sodium 138 mmol/L (136-145)
== END 2021-05-20 02:24 | disposition home or self-care (01) ==
LOC: LBO 02:23
PROVIDERS: PCP Student in an Organized Health Care Education/Training Program; Visit Provider Student in an Organized Health Care Education/Training Program
DX: R79.89 Other specified abnormal findings of blood chemistry (principal); T36.95XA Adverse effect of unspecified systemic antibiotic, initial encounter
CPT/HCPCS: 36415; 80048

== ENCOUNTER 2021-05-24 10:44 | Outpatient (CLI) | payer MEDICARE, MEDICAID, SELFPAY ==
--- NOTE | 2021-05-24 10:30 | RT.EKG_ITS ---
APPROVED REPORT Exam: Resting ECG Reason for Exam: Retirement use of adderall Patient Location: O HR:84 bpm ECG Measurements Heart Rate [address] 190 P 50 QRSd 83 QRS -7 QT 349 T 42 QTc 412 Conclusion Sinus rhythm...normal P axis, V-rate 60- 99 Normal Electrocardiogram
== END 2021-05-24 10:45 | disposition home or self-care (01) ==
LOC: DI.KIM 10:47
PROVIDERS: PCP Student in an Organized Health Care Education/Training Program; Visit Provider Student in an Organized Health Care Education/Training Program
DX: Z51.81 Encounter for therapeutic drug level monitoring (principal); F15.20 Other stimulant dependence, uncomplicated

== ENCOUNTER 2021-10-18 07:56 | Outpatient (CLI) | payer OTHER, MEDICAID, SELFPAY ==
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
--- NOTE | 2021-11-15 12:01 | W.CARDEVENT ---
Date of service: 11/15/21 Time of Service: 12:01 Cardiac Event Recorder Referring Provider:: Brittany Muhammad Indications:: Palpitations Cardiac Event Note: This is a 14-day event monitor, reportedly ordered for palpitations Predominant rhythm was sinus. Average heart rate was 74, minimum 50, maximum 139 There were rare atrial and ventricular ectopic beats There was no atrial fibrillation, no high-grade AV block, no pauses greater than 3 seconds A total of 35 self-limited atrial runs occurred. The longest of these was 12 beats in duration. There were multiple patient symptoms which overall corresponded to isolated PVCs
== END 2021-10-18 07:57 | disposition home or self-care (01) ==
LOC: RT 07:59
PROVIDERS: PCP Student in an Organized Health Care Education/Training Program; Visit Provider Student in an Organized Health Care Education/Training Program
DX: I49.8 Other specified cardiac arrhythmias (principal); R00.2 Palpitations
CPT/HCPCS: 93246

== ENCOUNTER 2021-11-11 02:20 | Outpatient (CLI) | payer OTHER, MEDICAID, SELFPAY ==
[2021-11-11 12:46] LABS: HCT 47.8 % (36.0-46.0); HGB 15.5 g/dL (11.2-15.7); MCH 26.3 pg (27.0-33.0); MCHC 32.4 % (32.0-36.0); MCV 81.2 fL (80-95); MPV 8.7 fL (8.0-11.0); Platelet Count 366 10^3/uL (130-400); RBC 5.89 10^6/uL (3.93-5.22); RDW 13.4 % (11.7-14.6); RDW-SD 39.7 fL; WBC 10.36 10^3/uL (4.4-10.8)
[2021-11-11 14:26] LABS: ALT 16 U/L (14-59); AST 19 U/L (15-37); Albumin 3.3 g/dL (3.4-5.0); Alkaline Phosphatase 67 U/L (46-116); Anion Gap 13.1 mmol/L (3-11); BUN 18 mg/dL (7-18); Bilirubin, Total 0.4 mg/dL (0.2-1.0); CO2 21.9 mmol/L (21.0-32.0); CREATININE 1.3 mg/dL (0.55-1.02); Calcium 9.6 mg/dL (8.5-10.1); Chloride 100 mmol/L (98-107); Estimated GFR 43.72 (mL/min/1.73m2); Glucose 111 mg/dL (74-106); Potassium 4.5 mmol/L (3.5-5.1); Sodium 135 mmol/L (136-145); Total Protein 6.9 g/dL (6.4-8.2)
[2021-11-14 02:48] LABS: Vitamin D 25 Total 58.5 ng/mL (30-100)
== END 2021-11-11 02:21 | disposition home or self-care (01) ==
LOC: LBO 02:20
PROVIDERS: PCP Student in an Organized Health Care Education/Training Program; Visit Provider Student in an Organized Health Care Education/Training Program
DX: E66.01 Morbid (severe) obesity due to excess calories (principal); R45.4 Irritability and anger; N17.9 Acute kidney failure, unspecified
CPT/HCPCS: 36415; 80053; 82306; 85027

== ENCOUNTER 2021-11-15 12:01 | Outpatient (CLI) | payer OTHER, MEDICAID, SELFPAY | END 2021-11-15 12:02 | LOC: CARDO 11-21 13:24 | PROVIDERS: PCP Student in an Organized Health Care Education/Training Program; Referring Provider Student in an Organized Health Care Education/Training Program; Visit Provider Internal Medicine Cardiovascular Disease | DX: I49.8 Other specified cardiac arrhythmias (principal); R00.2 Palpitations; I49.1 Atrial premature depolarization; I49.3 Ventricular premature depolarization | CPT/HCPCS: 93248 ==

== ENCOUNTER → 2021-12-06 02:37 | Outpatient (CLI) | payer OTHER, MEDICAID, SELFPAY ==
--- NOTE | 2021-12-06 06:30 | DI.US_ITS ---
APPROVED REPORT EXAM: Comprehensive 2D, Doppler, and color-flow Echocardiogram Patient Location: Out-Patient Manager Diesel: Vi Martinez RDCS (AE) Indications: Evaluate for structural pathology, HTN, Near Syncope Other Information Study Quality: Adequate Conclusion Normal left ventricular wall thickness and chamber size. Estimated ejection fraction is 55 to 60%. There are no segmental wall motion abnormalities Normal right ventricular size and systolic function Both atria are normal in size There is no structural or hemodynamically significant valvular disease Wall motion Left Ventricle The left ventricle is normal size. The left ventricular systolic function is normal. The left ventric ular ejection fraction is within the normal range. There is normal left ventricular wall thickness. T here is normal LV segmental wall motion. There is no ventricular septal defect visualized. LVEF is 56 %. Right Ventricle Right ventricle is grossly normal in size. Right ventricular systolic function is grossly normal. Atria The left atrium size is normal. The right atrium size is normal. The interatrial septum is intact wit h no evidence for an atrial septal defect. Aortic Valve The aortic valve is normal in structure. Aortic valve is trileaflet. There is no aortic valvular sten osis. No aortic regurgitation is present. Mitral Valve The mitral valve is normal in structure. No evidence of mitral valve stenosis. Trace mitral regurgita tion. Tricuspid Valve The tricuspid valve is normal in structure. There is no tricuspid valve stenosis. Trace tricuspid reg urgitation. Unable to assess PA pressure. Pulmonic Valve The pulmonary valve is normal in structure. There is no pulmonic valvular stenosis. There is no pulmo savanna valvular regurgitation. Great Vessels The aortic root is normal in size. The ascending aorta is normal in size. Aortic arch is normal in ca liber. IVC is normal in size and collapses >50% with inspiration. Pericardium There is no pericardial effusion. 2D Dimensions IVSD d PLAX 0.97 cm F: 0.6-1.0 LV Vol A2C d MOD 76.9 mL LVPW d PLAX 1.00 cm F: 0.6 - 1.0 LV Vol A4C d MOD 97.9 mL LVID d PLAX 4.35 cm F: 3.8 - 5.2 LA vol/ BSA A2C s A-L 14.7 mL/m2 LVDs 3.10 cm F: 2.2 - 3.5 LA vol/ BSA A4C s A-L 21.1 mL/m2 Ao Root d 2.73 cm F: 2.7 - 3.3 LA Vol/ BSA Biplane s A-L 18.8 mL/m2 RA Area A4C 13.10 cm2 LA Area A4C s MOD 15.52 cm2 RA Vol/ BSA A4C s A-L 15.1 mL/m2 LA Area A2C s MOD 13.89 cm2 Ao Asc Diam d 3.55 cm F: 2.3 - 3.1 LV EF A4C MOD 55.6 % LV EF Teichholz 54.5 % LV EF A2C MOD 56.5 % LVEF (Porter's) 56.34 % F: 54 - 74 LV EF Biplane MOD 56.3 % LV Volume 65.72 mL F: 46 - 106 SV 49.80 mL LV Volume Index 32.05 mL/m2 F: 29 - 61 SV Index 24.24 mL/m2 LV Vol Biplane MOD 88.4 mL FS 28.00 % M-Mode TAPSE 2.92 cm (M/F) >1.7 LV Diastology MV E' medial 0.078 (>0.07 m/s) E/A Ratio 0.9 LV E/e MED 12.10 (<14) MV E Vmax 0.95 (0.4-1.3 m/s) MV E' lateral 0.125 (>0.1 m/s) MV A Vmax 1.00 (0.4-1.3 m/s) LV E/e LAT 7.50 (<14) MV E/A Ratio 0.93 MV E/E' medial 12.10 MV E/E' lateral 7.55 Aortic Valve LVOT Area 2.90 cm2 AoV Area Vmax 2.33 cm2 LVOT Vmax 1.07 m/s AoV Area/ BSA (Vmax) 1.13 cm2/m2 LVOT Mean Bryan. 0.65 m/s CHRISTIAN Mean Bryan. 2.06 cm2 LVOT Peak Grad 4.6 mmHg CHRISTIAN Mean Bryan. Index 1.00 cm2/m2 LVOT Mean Grad 2.0 mmHg LVOT VTI 0.193 m LVOT Diam s 1.90 cm AoV Vmax 1.33 m/s Velocity Ratio 0.80 AoV Mean Bryan. 0.91 m/s AoV Peak Grad 7.1 mmHg LVOT SV 56.08 mL AoV Mean Grad 3.7 mmHg AoV VTI 0.243 m AoV Area VTI 2.31 cm2 AoV Area/ BSA (VTI) 1.12 cm/m2 Mitral Valve MV DT 243 (160-240 msec) MV PHT 71 msec MV Area PHT 3.12 cm2 MV VTI 0.400 m MV Area VTI 1.40 (4.0-6.0 cm2) Pulmonary Valve PV Vmax 1.08 (0.5-1.5 m/s) RVOT Peak Gr. 1.86 mmHg PV Peak Grad 4.7 mmHg RVOT Mean Gr. 0.85 mmHg PV Mean Grad 2.4 mmHg RVOT VTI 0.137 m PV VTI 0.218 m RVOT Vmax 0.68 m/s
== END ==
PROVIDERS: PCP Student in an Organized Health Care Education/Training Program; Visit Provider Student in an Organized Health Care Education/Training Program
DX: I10 Essential (primary) hypertension (principal); I51.89 Other ill-defined heart diseases; R55 Syncope and collapse
CPT/HCPCS: 93306

== ENCOUNTER 2021-12-22 03:40 | Outpatient (CLI) | payer OTHER, MEDICAID, SELFPAY ==
[2021-12-22 13:56] LABS: HGB 14.8 g/dL (11.2-15.7); MCH 25.8 pg (27.0-33.0); MCHC 32.2 % (32.0-36.0); MCV 80.1 fL (80-95); MPV 9.2 fL (8.0-11.0); Platelet Count 327 10^3/uL (130-400); RBC 5.74 10^6/uL (3.93-5.22); RDW 13.6 % (11.7-14.6); RDW-SD 39.4 fL; WBC 10.82 10^3/uL (4.4-10.8)
[2021-12-22 14:23] LABS: Iron 60 ug/dL (50-170); Total Iron Binding Capacity 404 ug/dL (250-450)
[2021-12-22 14:34] LABS: Ferritin 56 ng/mL (8-252)
== END 2021-12-22 03:41 | disposition home or self-care (01) ==
LOC: LBO 03:40
PROVIDERS: PCP Student in an Organized Health Care Education/Training Program; Visit Provider Student in an Organized Health Care Education/Training Program
DX: E11.9 Type 2 diabetes mellitus without complications (principal); R55 Syncope and collapse; I10 Essential (primary) hypertension; G47.33 Obstructive sleep apnea (adult) (pediatric)
CPT/HCPCS: 36415; 85027; 93005; 99202; 82728; 83540; 83550; 99213

== ENCOUNTER 2021-12-22 09:59 | Outpatient (CLI) | payer OTHER, MEDICAID, SELFPAY ==
--- NOTE | 2021-12-22 09:45 | RT.EKG_ITS ---
APPROVED REPORT Exam: Resting ECG Reason for Exam: NPW Baseline needed Patient Location: O HR:68 bpm ECG Measurements Heart Rate 68 AXIS NY 189 P -9 QRSd 106 QRS -14 QT 368 T 27 QTc 392 Conclusion Sinus rhythm...normal P axis, V-rate 50- 99 Low voltage, precordial leads...precordial leads <1.0mV Baseline wander in lead(s) V4,V5,V6
== END 2021-12-22 10:00 | disposition home or self-care (01) ==
LOC: DI.CARD 10:01
PROVIDERS: PCP Student in an Organized Health Care Education/Training Program; Visit Provider Internal Medicine Cardiovascular Disease
DX: R55 Syncope and collapse (principal)
CPT/HCPCS: 93010

== ENCOUNTER 2022-02-03 02:41 | Outpatient (CLI) | payer OTHER, MEDICAID, SELFPAY | END 2022-02-03 02:42 | disposition home or self-care (01) | LOC: LBO 02:41 | PROVIDERS: PCP Student in an Organized Health Care Education/Training Program; Visit Provider Student in an Organized Health Care Education/Training Program ==

== ENCOUNTER 2022-02-09 02:06 | Outpatient (CLI) | payer OTHER, MEDICAID, SELFPAY ==
[2022-02-09 14:49] LABS: Hemoglobin A1C 6.2 % (<5.7)
[2022-02-09 15:17] LABS: Folate 5.2 ng/mL (8.6-20.0); Vitamin B12 801 pg/mL (193-986)
== END 2022-02-09 02:07 | disposition home or self-care (01) ==
LOC: LBO 02:07
PROVIDERS: PCP Student in an Organized Health Care Education/Training Program; Visit Provider Student in an Organized Health Care Education/Training Program
DX: E11.9 Type 2 diabetes mellitus without complications (principal); F32.9 Major depressive disorder, single episode, unspecified; R71.8 Other abnormality of red blood cells; G25.81 Restless legs syndrome; G44.019 Episodic cluster headache, not intractable
CPT/HCPCS: 36415; 82607; 82746; 83036; 84443

== ENCOUNTER → 2022-03-15 13:30 | Outpatient (BNVA) | payer OTHER, MEDICAID, SELFPAY | PROVIDERS: PCP Student in an Organized Health Care Education/Training Program; Referring Provider Student in an Organized Health Care Education/Training Program; Visit Provider Psychiatry & Neurology Neurology | DX: R55 Syncope and collapse (principal); G43.109 Migraine with aura, not intractable, without status migrainosus; G43.009 Migraine without aura, not intractable, without status migrainosus; I10 Essential (primary) hypertension; E11.9 Type 2 diabetes mellitus without complications | CPT/HCPCS: 99214 ==

== ENCOUNTER 2022-03-24 01:46 | Outpatient (CLI) | payer OTHER, MEDICAID, SELFPAY ==
[2022-03-24 16:05] LABS: Anion Gap 11.5 mmol/L (3-11); BUN 13 mg/dL (7-18); CO2 24.5 mmol/L (21.0-32.0); CREATININE 1.4 mg/dL (0.55-1.02); Calcium 9.5 mg/dL (8.5-10.1); Chloride 100 mmol/L (98-107); Estimated GFR 40.13 (mL/min/1.73m2); Glucose 124 mg/dL (74-106); Potassium 4.3 mmol/L (3.5-5.1); Sodium 136 mmol/L (136-145)
== END 2022-03-24 01:47 | disposition home or self-care (01) ==
LOC: LBO 01:46
PROVIDERS: PCP Student in an Organized Health Care Education/Training Program; Visit Provider Student in an Organized Health Care Education/Training Program
DX: N28.9 Disorder of kidney and ureter, unspecified (principal)
CPT/HCPCS: 36415; 80048

== ENCOUNTER 2022-05-30 03:34 | Outpatient (CLI) | payer OTHER, MEDICAID, SELFPAY ==
[2022-05-30 10:39] LABS: Iron 101 ug/dL (50-170); Total Iron Binding Capacity 306 ug/dL (250-450); Transferrin Sat 33 % (15-50)
[2022-05-30 10:53] LABS: Anion Gap 13.4 mmol/L (3-11); BUN 11 mg/dL (7-18); CO2 23.6 mmol/L (21.0-32.0); CREATININE 1.2 mg/dL (0.55-1.02); Calcium 8.9 mg/dL (8.5-10.1); Chloride 103 mmol/L (98-107); Estimated GFR 55.49 (mL/min/1.73m2); Glucose 132 mg/dL (74-106); Magnesium 1.8 mg/dL (1.8-2.4); Potassium 3.6 mmol/L (3.5-5.1); Sodium 140 mmol/L (136-145)
[2022-05-30 10:54] LABS: Folate > 20.0 ng/mL (8.6-20.0)
[2022-05-31 15:45] LABS: Lamotrigine 5.7 mcg/mL (2.5 - 15.0)
== END 2022-05-30 03:35 | disposition home or self-care (01) ==
LOC: LBO 03:34
PROVIDERS: PCP Student in an Organized Health Care Education/Training Program; Visit Provider Student in an Organized Health Care Education/Training Program
DX: N17.9 Acute kidney failure, unspecified (principal); N28.9 Disorder of kidney and ureter, unspecified; E11.9 Type 2 diabetes mellitus without complications; M35.9 Systemic involvement of connective tissue, unspecified; E53.8 Deficiency of other specified B group vitamins; D17.71 Benign lipomatous neoplasm of kidney; E28.2 Polycystic ovarian syndrome
CPT/HCPCS: 36415; 80048; 80175; 82746; 83540; 83550; 83735

== ENCOUNTER → 2022-08-15 09:17 | Outpatient (BNVA) | payer OTHER, MEDICAID, SELFPAY | PROVIDERS: PCP Student in an Organized Health Care Education/Training Program; Referring Provider Student in an Organized Health Care Education/Training Program; Visit Provider Surgery | DX: L98.9 Disorder of the skin and subcutaneous tissue, unspecified (principal); E11.9 Type 2 diabetes mellitus without complications; E66.9 Obesity, unspecified | CPT/HCPCS: 99213; 99241 ==

== ENCOUNTER → 2022-09-05 10:49 | Outpatient (BNVA) | payer OTHER, MEDICAID, SELFPAY | PROVIDERS: PCP Student in an Organized Health Care Education/Training Program; Referring Provider Student in an Organized Health Care Education/Training Program; Visit Provider Surgery | DX: D17.22 Benign lipomatous neoplasm of skin and subcutaneous tissue of left arm (principal) | CPT/HCPCS: 11406 ==

== ENCOUNTER 2022-09-05 12:04 | Outpatient (REF) | payer OTHER, MEDICAID, SELFPAY ==
--- NOTE | 2022-09-05 11:30 | SKI_PTH ---
PATIENT: Genie Alejandre LOC: [facility] U#:[id number] AGE/SX: 47/F ROOM: RE09/05/[address]: BRITTNEY Liu : 1975 BED: DIS: 09/05/2022 SPEC #: [id number] RECD: 09/05/22 12:47 STATUS: SATHYA REQ #: [id number] KRZYSZTOF: 09/05/22 11:[address]: Renetta Barajas DEPT: Surgical Specimen RECD BY: Jamia Hendrickson ENTERED: 09/05/22 12:47 SP TYPE: WESTLEY WILLOUGHBY DR: Brittany Muhammad DO Tissues: 1 - SKIN BIOPSY(SHAVE/PUNCH) Procedures: GROSS AND MICRO LEVEL 3 Comments: [id number]
== END 2022-09-05 12:05 | disposition home or self-care (01) ==
LOC: LBN 12:04
PROVIDERS: PCP Student in an Organized Health Care Education/Training Program; Visit Provider Physical Therapy Assistant
DX: D17.22 Benign lipomatous neoplasm of skin and subcutaneous tissue of left arm (principal)
CPT/HCPCS: 88304; 88305

== ENCOUNTER 2022-10-25 02:07 | Outpatient (CLI) | payer OTHER, MEDICAID, SELFPAY ==
[2022-10-25 15:31] LABS: HCT 43.7 % (36.0-46.0); HGB 14.3 g/dL (11.2-15.7); MCH 27.7 pg (27.0-33.0); MCHC 32.7 % (32.0-36.0); MCV 85 fL (80-95); MPV 9.6 fL (8.0-11.0); Platelet Count 315 10^3/uL (130-400); RBC 5.17 10^6/uL (3.93-5.22); RDW 13.2 % (11.7-14.6); RDW-SD 40.5 fL
[2022-10-25 16:21] LABS: BUN 11 mg/dL (7-18); CREATININE 1.2 mg/dL (0.55-1.02); Calcium 9.6 mg/dL (8.5-10.1); Chloride 102 mmol/L (98-107); Estimated GFR 55.49 (mL/min/1.73m2); Glucose 137 mg/dL (74-106); Potassium 4.1 mmol/L (3.5-5.1); Sodium 138 mmol/L (136-145); TSH (W/Ref FT4) 0.14 uIU/mL (0.36-3.74)
[2022-10-25 16:40] LABS: Iron 53 ug/dL (50-170); Total Iron Binding Capacity 385 ug/dL (250-450); Transferrin Sat 14 % (15-50)
[2022-10-25 17:09] LABS: FREE T4 1.97 ng/dL (0.76-1.46)
== END 2022-10-25 02:08 | disposition home or self-care (01) ==
PROVIDERS: PCP Student in an Organized Health Care Education/Training Program; Visit Provider Student in an Organized Health Care Education/Training Program
DX: E03.9 Hypothyroidism, unspecified (principal); C73 Malignant neoplasm of thyroid gland; I10 Essential (primary) hypertension; F32.89 Other specified depressive episodes; M35.89 Other specified systemic involvement of connective tissue; N17.9 Acute kidney failure, unspecified
CPT/HCPCS: 36415; 80048; 85027; 83540; 83550; 84439; 84443

== ENCOUNTER 2022-11-15 09:21 | Outpatient (CLI) | payer OTHER, MEDICAID, SELFPAY ==
--- NOTE | 2022-11-15 09:15 | RT.EKG_ITS ---
APPROVED REPORT Exam: Resting ECG Reason for Exam: Baseline EKG. Starting antipsychotic medication. Patient Location: O HR:69 bpm ECG Measurements Heart Rate 69 AXIS MT 217 P 55 QRSd 92 QRS -9 QT 396 T 23 QTc 425 Conclusion Sinus rhythm...normal P axis, V-rate 50- 99 Prolonged MT interval...MT >210, V-rate 50- 90
== END 2022-11-15 09:22 | disposition home or self-care (01) ==
LOC: DI.KIM 09:46
PROVIDERS: PCP Student in an Organized Health Care Education/Training Program; Visit Provider Nurse Practitioner Family
DX: F31.81 Bipolar II disorder (principal)
CPT/HCPCS: 93010

== ENCOUNTER 2022-11-21 10:28 | Outpatient (REF) | payer OTHER, MEDICAID, SELFPAY ==
[2022-11-24 14:44] LABS: Pancreatic Elastase, F >500 mcg/g
[2022-11-24 17:57] LABS: Calprotectin 65.1 mcg/g
== END 2022-11-21 10:29 | disposition home or self-care (01) ==
LOC: LBN 10:28
PROVIDERS: PCP Student in an Organized Health Care Education/Training Program; Visit Provider Student in an Organized Health Care Education/Training Program
DX: K59.9 Functional intestinal disorder, unspecified (principal); K90.9 Intestinal malabsorption, unspecified; Z91.89 Other specified personal risk factors, not elsewhere classified; K29.70 Gastritis, unspecified, without bleeding
CPT/HCPCS: 82272; 82656; 83993

== ENCOUNTER 2022-11-28 02:26 | Outpatient (CLI) | payer OTHER, MEDICAID, SELFPAY ==
[2022-11-28 15:30] LABS: Absolute Basophil Count 0.04 10^3/uL (0.0-0.2); Absolute Lymphocyte Count 3.07 10^3/uL (1.2-3.4); Absolute Monocyte Count 0.88 10^3/uL (0.1-0.8); Basophils % 0.3; HCT 43.2 % (36.0-46.0); HGB 14.1 g/dL (11.2-15.7); Immature Grans % 0.8; Lymphocytes % 23.8; MCHC 32.6 % (32.0-36.0); MCV 83 fL (80-95); MPV 9.3 fL (8.0-11.0); Monocytes % 6.8; Neutrophils % 68.3; Platelet Count 329 10^3/uL (130-400); RBC 5.23 10^6/uL (3.93-5.22); RDW 13.5 % (11.7-14.6); RDW-SD 40.1 fL; WBC 12.88 10^3/uL (4.4-10.8)
[2022-11-28 16:29] LABS: Anion Gap 12.1 mmol/L (3-11); BUN 12 mg/dL (7-18); CO2 21.9 mmol/L (21.0-32.0); CREATININE 1.2 mg/dL (0.55-1.02); Calcium 9.4 mg/dL (8.5-10.1); Chloride 103 mmol/L (98-107); Estimated GFR 55.49 (mL/min/1.73m2); Glucose 153 mg/dL (74-106); Magnesium 1.7 mg/dL (1.8-2.4); Potassium 4.2 mmol/L (3.5-5.1); Sodium 137 mmol/L (136-145)
[2022-11-28 17:06] LABS: Vitamin D 25 Total 47.1 ng/mL (30-100)
[2022-11-30 18:03] LABS: Erythropoietin 19.3 mIU/mL (2.6 - 18.5)
== END 2022-11-28 02:27 | disposition home or self-care (01) ==
LOC: LBO 02:27
PROVIDERS: PCP Student in an Organized Health Care Education/Training Program; Visit Provider Student in an Organized Health Care Education/Training Program
DX: K90.9 Intestinal malabsorption, unspecified (principal); N18.9 Chronic kidney disease, unspecified; Z91.89 Other specified personal risk factors, not elsewhere classified; E61.1 Iron deficiency; N28.9 Disorder of kidney and ureter, unspecified; R53.83 Other fatigue; R71.8 Other abnormality of red blood cells; M35.9 Systemic involvement of connective tissue, unspecified; E66.01 Morbid (severe) obesity due to excess calories; Z68.42 Body mass index [BMI] 45.0-49.9, adult
CPT/HCPCS: 36415; 80048; 82306; 82668; 83735; 85025

== ENCOUNTER 2023-08-31 20:57 | Outpatient (REF) | payer OTHER, SELFPAY ==
[2023-08-31 21:37] LABS: Anion Gap 11.5 mmol/L (3-11); BUN 12 mg/dL (7-18); CO2 24.5 mmol/L (21.0-32.0); CREATININE 1.4 mg/dL (0.55-1.02); Chloride 100 mmol/L (98-107); Estimated GFR 45.83 (mL/min/1.73m2); Glucose 113 mg/dL (74-106); Potassium 4.7 mmol/L (3.5-5.1); Sodium 136 mmol/L (136-145)
== END 2023-08-31 20:58 | disposition home or self-care (01) ==
LOC: LBN 20:57
PROVIDERS: PCP Student in an Organized Health Care Education/Training Program; Visit Provider Physician Assistant
DX: I10 Essential (primary) hypertension (principal)
CPT/HCPCS: 80048

== ENCOUNTER 2023-10-18 04:52 | Outpatient (CLI) | payer OTHER, SELFPAY ==
[2023-10-18 16:13] LABS: ALT 11 U/L (14-59); AST 13 U/L (15-37); Albumin 2.7 g/dL (3.4-5.0); Alkaline Phosphatase 86 U/L (46-116); BUN 11 mg/dL (7-18); Bilirubin, Total 0.3 mg/dL (0.2-1.0); CREATININE 1.1 mg/dL (0.55-1.02); Calcium 9.5 mg/dL (8.5-10.1); Calculated LDL 66 mg/dL (<100); Chloride 100 mmol/L (98-107); Cholesterol 163 mg/dL (<200); Estimated GFR 61.22 (mL/min/1.73m2); Glucose 116 mg/dL (74-106); HDL Cholesterol 71 mg/dL (40-60); Potassium 4.4 mmol/L (3.5-5.1); Sodium 134 mmol/L (136-145); TSH (W/Ref FT4) 0.01 uIU/mL (0.36-3.74); Total Protein 6.9 g/dL (6.4-8.2); Triglyceride 131 mg/dL (<150)
[2023-10-18 16:25] LABS: Hemoglobin A1C 5.5 % (<5.7)
[2023-10-18 16:36] LABS: FREE T4 2.18 ng/dL (0.76-1.46)
--- OUTSIDE RECORDS SUMMARY | 2023-10-19 12:02 | XMS_ITS | Continuity of Care Document ---
Author Name Unknown Organization [facility] Address [address] [place] [address] Care Team Providers Care Supplier Quality Manager Name Role Phone Brittany Muhammad Primary Care Physician Encounter [facility] [id number] Date(s): 09/13/23 - 09/13/23 [facility] [address] [place] [address] Discharge Disposition: Home Assessment and Plan Future Appointments Immunizations Given and Recorded Vaccine Date Status Refusal Reason influenza virus vaccine, live 07/26/20 Recorded tetanus/diphth/pertuss (Tdap) adult/adol 08/15/10 Recorded Medications cetirizine 10 mg oral tablet 0 Refill(s) Start Date: 09/13/23 Status: Ordered D3 25 mcg (1000 intl units) oral tablet 0 Refill(s) Start Date: 09/13/23 Status: Ordered Fish Oil 1000 mg oral capsule 0 Refill(s) Start Date: 09/13/23 Status: Ordered guanFACINE 1 mg oral tablet 0 Refill(s) Start Date: 09/13/23 Status: Ordered Jornay PM 40 mg/24 hr oral capsule, extended release 40 mg = 1 cap, Oral, every evening, 0 Refill(s) Start Date: 09/13/23 Status: Ordered lamoTRIgine 300 mg oral tablet, extended release 300 mg = 1 tab, Oral, Daily, # 30 tab, 0 Refill(s) Start Date: 09/13/23 Status: Ordered lansoprazole 30 mg oral delayed release capsule 0 Refill(s) Start Date: 09/13/23 Status: Ordered levothyroxine 200 mcg (0.2 mg) oral capsule 0 Refill(s) Start Date: 09/13/23 Status: Ordered lurasidone 60 mg oral tablet 60 mg = 1 tab, Oral, Daily, # 30 tab, 0 Refill(s) Start Date: 09/13/23 Status: Ordered magnesium oxide 400 mg oral capsule 400 mg = 1 cap, Oral, Daily, # 75 cap, 0 Refill(s) Start Date: 09/13/23 Status: Ordered metFORMIN 500 mg oral tablet 500 mg = 1 tab, Oral, Daily, with meals, # 30 tab, 0 Refill(s) Start Date: 09/13/23 Status: Ordered Ozempic (1 mg dose) 4 mg/3 mL subcutaneous solution weekly, 0 Refill(s) Start Date: 09/13/23 Status: Ordered spironolactone 50 mg oral tablet 50 mg = 1 tab, Oral, BID, # 60 tab, 0 Refill(s) Start Date: 09/13/23 Status: Ordered Tri-Sprintec 0 Refill(s) Start Date: 09/13/23 Status: Ordered Ventolin HFA 90 mcg/inh inhalation aerosol 0 Refill(s) Start Date: 06/26/23 Status: Ordered zolpidem 5 mg oral tablet See Instructions, take 1-2 PO night of sleep study if needed, # 2 tab, 0 Refill(s), Pharmacy: [id number], 160.02, cm, 09/13/23 12:12:00 EST, Height, 81.65, kg, 09/13/23 12:18:00 EST, Weight Dosing Start Date: 09/13/23 Status: Ordered Problem List Condition Confirmation Course Effective Dates Status H ealth Status Informant Anxiety Confirmed Active Bipolar disorder Confirmed Active Depressive disorder Confirmed Active Hypertensive disorder Confirmed Active Insomnia Confirmed Active Obstructive sleep apnea, adult Confirmed Active Polycystic ovary syndrome Confirmed Active Posttraumatic stress disorder Confirmed Active Thyroid nodule Confirmed Active Social History Social History Type Response Tobacco Former tobacco user Tobacco Use:. 1 Sex Female 1quit in 2009 Patient Care team information Care Team Personnel Name: Brittany Muhammad DO Position: No Access Member Role: Primary Care Physician Address: Address: [address] [address]- [place] Care Team Related Persons Name: NORA CRESPO
== END 2023-10-18 04:53 | disposition home or self-care (01) ==
LOC: LBO 04:53
PROVIDERS: PCP Student in an Organized Health Care Education/Training Program; Visit Provider Student in an Organized Health Care Education/Training Program
DX: R73.09 Other abnormal glucose (principal); I10 Essential (primary) hypertension; N17.9 Acute kidney failure, unspecified
CPT/HCPCS: 36415; 80053; 80061; 83036; 84439; 84443

== ENCOUNTER 2024-01-15 04:03 | Outpatient (CLI) | payer OTHER, SELFPAY ==
[2024-01-15 15:27] LABS: TSH (W/Ref FT4) 0.01 uIU/mL (0.36-3.74)
[2024-01-15 15:42] LABS: Folate 6.6 ng/mL (8.6-20.0)
[2024-01-15 15:44] LABS: FREE T4 2.14 ng/dL (0.76-1.46)
[2024-01-15 15:46] LABS: Vitamin B12 > 2000 pg/mL (193-986)
[2024-01-15 15:47] LABS: Iron 56 ug/dL (50-170); Total Iron Binding Capacity 411 ug/dL (250-450); Transferrin Sat 14 % (15-50)
[2024-02-01 15:58] LABS: Result Summary Negative; Specimen WB Whole Blood
== END 2024-01-15 04:04 | disposition home or self-care (01) ==
LOC: LBO 04:03
PROVIDERS: PCP Student in an Organized Health Care Education/Training Program; Visit Provider Internal Medicine Endocrinology, Diabetes & Metabolism
DX: K90.9 Intestinal malabsorption, unspecified; E89.0 Postprocedural hypothyroidism
CPT/HCPCS: 36415; 81448; 82668; 82607; 82746; 83540; 83550; 84439; 84443

== ENCOUNTER 2024-05-07 02:45 | Outpatient (CLI) | payer OTHER, MEDICAID, SELFPAY ==
--- OUTSIDE RECORDS SUMMARY | 2024-05-07 02:52 | XMS_ITS | Encounter Summary ---
Author Organization [facility] Address [address] [place] [address] Care Team Providers Care Showplace Manager Name Role Phone Unknown, Provider Primary Care Provider Encounter Details Date Type Department Care Team (Late st Contact Info) Description 10/07/2020 Lab Requisition [facility] Pathology & Laboratory Medicine - [facility] [address] [place] [address] Outr Resulting Lab, Provider Social History Tobacco Use Types Packs/Day Years Used Date Smoking Tobacco: Never Assessed Interpersonal Safety Answer Date Record ed Physically Hurt Never 2020 Verbally Threaten Not on file 2020 Sex and Gender Information Value Date Recorded Sex Assigned at Not on file Gender Identity Not on file Sexual Orientation Not on file documented as of this encounter Plan of Treatment Not on file documented as of this encounter Procedures Procedure Name Priority Date/Time Associated Diagnosis Comments ZZCOVID-19 TEST [facility] PCR Today 10/07/2020 9:16 EST COVID-19 TESTING Routine 10/07/2020 9:16 EST documented in this encounter Results * COVID-19 TEST [facility] PCR (10/07/2020 9:16 EST) Swab ENTIRE NASOPHARYNX / Unknown 10/07/2020 9:16 EST 10/07/2020 15:41 EST Provider Outr Resulting Lab MICROBIOLOGY - GENERAL ORDERABLES [facility] [address] [place] [address] * COVID-19 TESTING (10/07/2020 9:16 EST) COVID-19 rt-PCR Result Negative Negative 10/08/2020 15:51 EST [facility] Comment: Negative results do not preclude 2019-nCoV infection and should not be used as the sole basis for treatment or other patient management decisions. Negative results must be combined with clinical observations, patient history, and epidemiological information. This test was developed and its performance characteristics determined by [facility]. It has not been cleared or approved by the [place] Food and Drug Administration. FDA does not require this test to go through premarket FDA review. This test is used for clinical purposes. It should not be regarded as investigational or for research. This laboratory is certified under the Clinical Laboratory Improvement Amendments (CLIA) as qualified to perform high complexity clinical laboratory testing. This test is based on the [facility] [place] COVID-19 Emergency Use Authorization (EUA) assay, with minor modification as defined by the FDA Performed on the [employer] 7 Flex. Performing Lab [facility] 10/08/2020 15:51 EST [facility] Swab 10/07/2020 9:16 EST 10/07/2020 15:41 EST Provider Outr Resulting Lab MICROBIOLOGY - GENERAL ORDERABLES [facility] [address] [place] [address] documented in this encounter Visit Diagnoses Not on filedocumented in this encounter Care Teams Showplace Manager Relationship Specialty Start Date End Date Unknown, Provider, PCP - General 02/20/13 documented as of this encounter
--- OUTSIDE RECORDS SUMMARY | 2024-05-07 02:52 | XMS_ITS | Encounter Summary ---
Author Organization [facility] Address [address] [place] [address] Care Team Providers Care Lap Polisher Name Role Phone Unavailable Primary Care Provider Unavailabl e Encounter Details Date Type Department Care Team (Late st Contact Info) Description 06/29/2000 Results Only [facility] [address] [place] [address] Carmel Quezada MD [address] [facility] [address] [place] [address] Social History Tobacco Use Types Packs/Day Years Used Date Smoking Tobacco: Never Assessed Sex and Gender Information Value Date Recorded Sex Assigned at Not on file Gender Identity Not on file Sexual Orientation Not on file documented as of this encounter Plan of Treatment Not on file documented as of this encounter Procedures Procedure Name Priority Date/Time Associated Diagnosis Comments CYTOPATHOLOGY Routine 06/29/2000 0:00 EDT documented in this encounter Results * CYTOPATHOLOGY (06/29/2000 0:00 EDT) Pathology Report: CYTOPATHOLOGY REPORT Reports generated via electronic interface contain original data; however they are lacking the format of the original report. Caution should be taken when reading/interpreti ng unformatted reports. Name: ? GENIE CRESPO ? Accession #: ? [id number] : ? 1975 (Age: 25) ??F ?Collect Date: ? 06/29/2000 Location: ? [facility] ? Receive Date: ? 07/03/2000 Provider: ?CARMEL QUEZADA MD Copy to: ? Specimen/Source: ?Conventional Pap Test, Cervix/Endocervix Last Menstrual Period: ? 06/14/00 Hormonal/Contracep tive Status: ? Yes ? SPECIMEN ADEQUACY ? Satisfactory for evaluation. GENERAL CATEGORIZATION ? Within Normal Limits ? Document reviewed and electronically signed by: ? Sandi Rene, ??CT(ASCP) ? Report Date: ??07/04/2000 14:03 End of Report ENRIQUE MENDOZA 06/29/2000 07/03/2000 Carmel Quezada MD PATHOLOGY ORDERABLES [facility] MENDOZA [address] [place] [address] documented in this encounter Visit Diagnoses Not on filedocumented in this encounter
--- OUTSIDE RECORDS SUMMARY | 2024-05-07 02:52 | XMS_ITS | Encounter Summary ---
Author Organization [facility] Address [facility] [place] [address] Care Team Providers Care Environmental Services Assistant Name Role Phone Brittany Muhammad DO Primary Care Provider [phone] Reason for Visit * Consultation (Routine) - Closed Specialty Diagnoses / Procedures Referred By Cash reese Referred To Contact Nephrology Diagnoses Disorder of kidney and ureter Essential hypertension Brittany Muhammad DO [address] [place] [address] [facility] Neph[facility] [address] [place] [phone] Referral ID Status Reason Start Date Expiration Date V isits Requested Visits Authorized [id number] Closed Consult, Test & Treat PCP Updated and/or Approved 03/31/2022 03/31/2023 6 6 Encounter Details Date Type Department Care Team (Late st Contact Info) Description 01/29/2023 1:00 PM EDT Office Visit Ne[place] [address] [facility] [address] Stage 3a chronic kidney disease; Elevated serum creatinine; Hypertension, unspecified type; Insulin resistance; Hypophosphatemia; Class 3 severe obesity with serious comorbidity and body mass index (BMI) of 45.0 to 49.9 in adult, unspecified obesity type; Angiolipoma of right kidney Social History Tobacco Use Types Packs/Day Years Used Date Smoking Tobacco: Former Cigarettes 1 5 0 10/01/2000 - 10/01/2005 Smokeless Tobacco: Never Comments:quit 2005 Alcohol Use Standard Drinks/Week Comments Yes 0 (1 standard drink = 0.6 oz pure alcohol) I drink only 3-4 times throughout the year Overall Financial Resource Strain (CARDIA) Answe r Date Recorded How hard is it for you to pa y for the very basics like food, housing, medical care, and heating? Not very hard 12/29/2022 Hunger Vital Sign Answer Date Recorded Within the past 12 months, y ou worried that your food would run out before you got the money to buy more. Sometimes true Within the past 12 months, t he food you bought just didn't last and you didn't have money to get more. Never true PRAPARE - Transportation Answer Date Re corded In the past 12 months, has l ack of transportation kept you from medical appointments or from getting medications? No 12/01 In the past 12 months, has l ack of transportation kept you from meetings, work, or from getting things needed for daily living? No 12/29/2022 Housing Stability Vital Sign Answer Regis e Recorded In the last 12 months, was t here a time when you were not able to pay the mortgage or rent on time? No 12/29/2022 In the last 12 months, how many places have you lived? 1 12/29/2022 In the last 12 months, was t here a time when you did not have a steady place to sleep or slept in a half-way (including now)? No 12/29/2022 Sex and Gender Information Value Date Recorded Sex Assigned at Female 02/16/2021 7:51 PM EDT Gender Identity Female 02/16/2021 7:51 PM EDT Sexual Orientation Straight 02/16/2021 7: 51 PM EDT documented as of this encounter Last Filed Vital Signs Vital Sign Reading Time Taken Comments Blood Pressure 138/89 01/29/2023 12:45 PM EDT Pulse 70 01/29/2023 12:45 PM EDT Temperature - - Respiratory Rate - - Oxygen Saturation - - Inhaled Oxygen Concentration - - Weight 108.4 kg (239 lb) 01/29/2023 12:45 PM EDT Height 159.4 cm (5' 2.75) 01/29/2023 12:45 PM E DT Body Mass Index 42.67 01/29/2023 12:45 PM EDT documented in this encounter Progress Notes * Thalia Guidry MD - 01/29/2023 1:00 PM EDT [facility] 01/29/2023 PRIMARY CARE/REFERRING PROVIDER: Brittany Muhammad DO REASON FOR CONSULT: Disorder of kidney and ureter Essential hypertension HISTORY OF PRESENT ILLNESS: Genie Alejandre is a 47 y.o. who is seen in consultation for renal insufficiency. Overall, Genie reports that she has been feeling tired, exhausted all the time. The reason for this isn't clear. She is otherwise is feeling okay. Her appetite is good some days and some days not. Medication for ADHD suppresses her appetite, but she then has an appetite when it wears off. No fevers, chills. Having night sweats, drenching, hasto change her cloths. Has been having those for a few years, but thinks it's happening more in the last few months. They do not occur every night, but are frequent. Had some lightheadedness/dizzinessin August and October, enough that she almost fainted, but nothing outside of that. No chest painor shortness of breath. No abdominal pain. Has some nausea on occasion, but not frequent or severe;no vomiting. Usually has diarrhea, although will develop constipation if she hasn't been drinking enough water. Does not have any leg swelling. Does not use NSAIDs, just uses Tylenol if needed. Home/PCP BP: 115-120/70s. PAST MEDICAL HISTORY: Past Medical History: Diagnosis Date ??? ADHD (attention deficit hyperactivity disorder), combined type 01/26/2023 ??? DESTINY (acute kidney injury) 01/26/2023 ??? Angiolipoma of right kidney 01/26/2023 ??? Anxiety 01/26/2023 ??? Asthma 01/26/2023 ??? CKD (chronic kidney disease), stage III 01/29/2023 ??? Cluster headache, episodic 01/26/2023 ??? Erosive esophagitis 01/26/2023 ??? Gastritis determined by endoscopy 01/26/2023 ??? H/O esophagogastroduodenoscopy 01/26/2023 ??? H/O thyroidectomy 01/26/2023 ??? History of nephrolithiasis 05/09/2013 ??? HNP (herniated nucleus pulposus), lumbar 07/17/2013 ??? Hordeolum externum (stye) 01/26/2023 ??? Hormone disorder 2012 Under active thyroid ??? Hypothyroid 03/06/2013 ??? Insulin resistance 02/27/2020 ??? Iron deficiency 01/26/2023 ??? Leukocytosis 01/26/2023 ??? Mental or behavioral problem 2002 PTSD, Depression ??? Migraine headache with aura 01/26/2023 ??? Motility disorder of intestine 01/26/2023 ??? Odynophagia 01/26/2023 ??? CARLOS (obstructive sleep apnea) 03/06/2013 ??? Papillary microcarcinoma of thyroid 03/11/2020 ??? PCOS (polycystic ovarian syndrome) 03/11/2020 ??? Post-traumatic stress disorder 01/26/2023 ??? Psoriasis 03/06/2013 ??? Right renal mass 03/06/2013 Probable angiomyolipoma, work up in progress March, ??? Skin disorder 2011 Psoriasis ??? Urinary disorder Oct 2003 Kidney stones DESTINY sometime since the pandemic started, but not in the past year Asthma is allergy related, only has to use inhaler in the summer Cluster headache thought by neurologist to be related to prior concussion Kidney stones 2-3x, last time almost 20 years ago Motility disorder re: diarrhea? CARLOS, not yet on CPAP PAST SURGICAL HISTORY: Past Surgical History: Procedure Laterality Date ??? BLADDER SURGERY 2002 Kidney stone removal ??? PRG EMG, LARYNX N/A 04/07/2019 FACIAL NERVE MONITORING, SETUP LARYNGEAL (WRVU 1.57) performed by Olive Liu MD at [facility] MAIN OR ??? PRG UNLISTED DIAGNOSTIC GASTROENTEROLOGY PROCEDURE 1992 Gallbladder removed ??? PRO LAMINOTOMY, LUMBAR DISK, 1 INTRSP 09/17/2013 LAMINOTOMY, DECOMPRESSION, FORAMINOTOMY, LUMBAR performed by Brock Trujillo MD at [facility] MAIN OR ??? PRO THYROIDECTOMY N/A 04/07/2019 THYROIDECTOMY, TOTAL OR COMPLETE (WRVU 15.04) performed by Olive Liu MD at [facility] MAIN OR MEDICATIONS: Current Outpatient Medications Medication Sig Dispense Refill ??? cholecalciferol, Vitamin D3, 25 mcg (1,000 unit) Capsule 2,000 Units. ??? SUMAtriptan (IMITREX) 20 mg/actuation [place], Non-Aerosol Once ??? cyanocobalamin, Vitamin B-12, (Vitamin B-12) 100 mcg tablet Take 100 mcg by mouth daily. ??? Magnesium 200 mg tablet Take 200 mg by mouth daily. ??? Jornay PM 40 mg ER sprinkle capsule Take 40 mg by mouth nightly. ??? ziprasidone (Geodon) 20 mg capsule TAKE ONE CAPSULE BY MOUTH TWICE A DAY WITH FOOD ??? levothyroxine (Synthroid) 200 mcg Tablet 1 tab and 0.5 tab on Sundays. 90 tablet 3 ??? cetirizine (ZyrTEC) 10 mg Tablet Take 10 mg by mouth daily. ??? guanFACINE (Tenex) 1 mg Tablet ??? propranoloL (Inderal) 10 mg Tablet Take 10 mg by mouth daily. ??? metFORMIN XR (Glucophage XR) 500 mg Tablet Sustained Release 24 hr Take 2 tablets by mouth 2 times daily (with meals). (Patient taking differently: Take 750 mg by mouth 2 times daily (with meals).) 120 tablet 0 ??? lansoprazole (PREVACID) 30 mg Capsule, Delayed Release(E.C.) Take 30 mg by mouth daily. ??? Ventolin HFA 90 mcg/actuation HFA Aerosol Inhaler Inhale 90 mcg into the lungs as needed. ??? spironolactone (ALDACTONE) 50 mg Tablet Take 1 tablet by mouth daily. (Patient taking differently: Take 50 mg by mouth 2 times daily.) 90 tablet 3 ??? lamoTRIgine (LAMICTAL) 150 mg Tablet TK 1 T PO D 2 ??? norgestimate-ethinyl estradiol (TRI SPRINTEC) 0.18/0.215/0.25 mg-35 mcg (28) Tablet Take 1 tablet by mouth daily. 84 tablet 3 No current facility-administered medications for this visit. ALLERGIES/ADVERSE REACTIONS: Allergies Allergen Reactions ??? Budesonide-Formoterol Other reaction(s): severe muscle spasms ??? Liraglutide Other reaction(s): Nausea ??? Lisinopril Other reaction(s): cough ??? Bupropion Mood swings ??? Flexeril [Cyclobenzaprine] Anger FAMILY HISTORY: Family History Relation Problem Age of Onset MGM - Diabetes PAunt - Diabetes Immediate family don't really go to doctor, so medical histories unknown. However, has found recordof kidney disease on both sides of family when doing genealogical research. SOCIAL HISTORY: Social History Social History Narrative ??? Not on file Lives with 3 cats (Cookie, Mac, Bear) plus a foster (John), and 1 dog (Eulogio, black lab). Not working. Former tobacco, remote. Rare EtOH. Has tried THC, but doesn't use. REVIEW OF SYSTEMS: Ten systems reviewed and negative except as noted in the HPI and PMHx. PHYSICAL EXAMINATION: Vitals: 01/29/23 1245 BP: 138/89 Pulse: 70 Weight: 108.4 kg (239 lb) Height: 159.4 cm (5' 2.75) Body mass index is 42.67 kg/m??. General - Obese but otherwise well-appearing woman. Appears younger than her stated age. Neatly andappropriately groomed. Very pleasant and cooperative. Seated comfortably in a chair. HEENT - No icterus or conjunctival injection. Neck - Supple. No lymphadenopathy. Respiratory - Lungs are clear to auscultation bilaterally. Cardiovascular - S1 and S2 are present. Regular rate and rhythm. No murmurs, rubs, or gallops. Extremities - No edema. Psychiatric - Appropriate mood and affect. Neurological - No focal deficits. LABORATORY STUDIES: Urine sediment - Unable to provide sample. Urinalysis - Recent Results (from the past 170 hour(s)) Vitamin D, 25-Hydroxy Collection Time: 01/29/23 12:15 PM Result Value Ref Range 25-OH Vit D Total 44 21 - 100 ng/mL 25-OH Vit D Interp Sufficient Phosphorus Collection Time: 01/29/23 12:15 PM Result Value Ref Range Phosphorus 1.7 (L) 2.5 - 4.5 mg/dL Albumin Level Collection Time: 01/29/23 12:15 PM Result Value Ref Range Albumin 3.9 3.2 - 5.2 g/dL PTH Collection Time: 01/29/23 12:15 PM Result Value Ref Range PTH 24 15 - 65 pg/mL Lipid Panel (Reflex Direct LDL) Collection Time: 01/29/23 12:15 PM Result Value Ref Range Chol, Total 148 mg/dL Triglycerides 197 mg/dL HDL 48 mg/dL LDL Cholesterol 61 mg/dL Chol/HDL Ratio 3.1 ratio Lipid Interpretation See Note Basic Metabolic Panel (non-fasting) Collection Time: 01/29/23 12:15 PM Result Value Ref Range Glucose Lvl 153 65 - 199 mg/dL BUN 13 8 - 18 mg/dL Creatinine 1.24 (H) 0.70 - 1.20 mg/dL Sodium 138 135 - 145 mmol/L Potassium 4.9 3.5 - 5.0 mmol/L Chloride 102 98 - 107 mmol/L CO2 24 22 - 31 mmol/L Anion Gap 12 5 - 15 mmol/L Calcium 9.4 8.5 - 10.5 mg/dL Estimated GFR 53 (L) >=60 mL/min/1.73 m?? Hemogram Collection Time: 01/29/23 12:15 PM Result Value Ref Range WBC 13.5 (H) 4.0 - 9.5 x10(3)/mcL RBC 5.43 (H) 4.00 - 5.21 x10(6)/mcL Hemoglobin 14.9 11.7 - 15.5 g/dL Hematocrit 44.3 35.7 - 45.8 % MCV 81.6 (L) 82.6 - 94.4 fL MCH 27.4 27.1 - 32.0 pg MCHC 33.6 31.7 - 35.0 g/dL Platelets 303 145 - 357 x10(3)/mcL RDWSD 39.9 37.0 - 46.0 fL RDWCV 13.6 11.5 - 14.1 % MPV 9.5 7.6 - 12.9 fL nRBC % Auto 0.0 % nRBC Abs Auto 0.000 0.000 - 0.000 x10(3)/mcL Differential, Automated Collection Time: 01/29/23 12:15 PM Result Value Ref Range Neutrophils % 71.8 % Neutr Abs (ANC) 9.67 (H) 1.70 - 6.10 x10(3)/mcL Lymphocytes % 20.6 % Lymphocytes Abs 2.8 0.9 - 3.2 x10(3)/mcL Monocytes % 6.8 % Monocyte Abs 0.9 0.3 - 0.9 x10(3)/mcL Eosinophils % 0.1 % Eosinophils Abs 0.0 0.0 - 0.4 x10(3)/mcL Basophils % 0.1 % Basophils Abs 0.0 0.0 - 0.1 x10(3)/mcL Immature Gran % 0.60 % Monse Gran Abs 0.08 (H) 0.00 - 0.04 x10(3)/mcL Creatinine Date Value 01/29/2023 1.24 mg/dL (H) 10/16/2022 1.22 mg/dL (H) 02/23/2021 1.1 06/18/2020 1.36 (H) 03/02/2020 1.23 mg/dL (H) 11/19/2019 1.15 (ExtH) 01/23/2019 1.00 mg/dL 08/14/2013 1.21 mg/dL (H) 05/08/2013 1.10 mg/dL 03/03/2013 1.23 mg/dL (H) ASSESSMENT AND PLAN: 47 y.o. woman presenting for evaluation of ?renal insufficiency. 1) ?Renal insufficiency/elevated creatinine - Between the labs in our system and those from her PCP, Genie's creatinine appears to have been overall stable for at least 10 years. There were a couple of transient elevations beyond that. She is on some medications that are often used for hypertension, but she is on them for other indications (e.g., ADHD). However, her BP is well controlled -- not lo w -- on those medications. Thus, she may have had HTN for some time that went untreated. This wouldhave had to pre-date the elevated creatinine for a long period in order to make sense. Another risk factor is obesity, but I doubt her kidney function would have remained so stable for so long if that was the cause/contributor. She was unable to provide a urine sample today, so I sent orders to [facility] to check a urinalysis and a urine [id number] ratio. If she has proteinuria, I may have a little more suspicion that HTN and/or obesity are leading to mild renal insufficiency. All that being said, I suspect it is equally likely that she does not have renal insufficiency, but rather her higher creatinine is related to higher muscle mass in the setting of obesity. I added a cystatin C, which does not rely on muscle mass/body habitus, to the labs done today for comparison. This result should return in about a week. Of note, she has no complications whatsoever related to renal insufficiency. If she does have renal insufficieny, it is mild and very stable. We discussed risk factors for CKD,including uncontrolled HTN, diabetes, and obesity. The first two are not an issue at this time. In terms of obesity, she is already working to eat a healthy diet, and she walks with her dog daily. She has been through the [facility] program. She may benefit from medication to facilitate weight loss. She has tried Victoza in the past but did not tolerate it due to GI side effects. Anotheroption would be Wegovy (simaglutide), which is also under the name Ozempic (the former for weight loss, the latter for diabetes). This can also cause GI side effects when first started, but these tend to resolve with continued use. One way to help ameliorate this is to start by taking it 3 days/week, then gradually titrating the dose. 2) HTN - As noted above, is well controlled. 3) Insulin resistance - Managed by PCP. Might resolve completely with weight loss, if we can make some headway there. 4) Hypophosphatemia - Encouraged her to increase dietary phosphorus (nuts, seeds, dried beans, whole grains). 5) Lipids - Reasonably well controlled, particularly since they are not fasting. If we confirm thaterin does have CKD, then statin +/- ezetimibe is indicated -- regardless of lipid levels -- in the setting of CKD as a cardiovascular risk equivalent. 6) Angiomyolipoma - Incidental finding on imaging. Benign lesion. Does not require further follow-up. 7) Return to clinic - Follow-up to be determined pending result of cystatin C. Provided patient with my contact information, and encouraged her to let me know if she has any questions or concerns. 80 minutes of this visit were spent in reviewing records, counseling patient on disease process andtreatment options as outlined in my assessment and plan, investigating treatment options, and coordinating care. Thalia Guidry MD [facility] [place] [address] E-mail: [email or web address] documented in this encounter Plan of Treatment Not on file documented as of this encounter Goals Goal Patient Goal Type Associated Problems Recent Progress Patient-Stated? Author medication Lifestyle On track( 11:55 AM EDT) Crystal Wells APRN Note: Continue metformin 1000mg in the evening with food movement Lifestyle On track( 11:55 AM EDT) Crystal Wells APRN Note: Continue what might help make the walks more regular and have a bad weather alternative- will send yoga sheet with some online videos to investigate and see if you can find one that works for you. Consider adding some sort of strength training Consider setting some goals for summer, give you something to work toward/look forward to. stress management Lifestyle On track( 11:55 AM EDT) Crystal Wells APRN Note: Continue working with therapist to manage stress Deep breathing before bedtime Find some activities/hobbies you enjoy to keep your mind and body busy sleep Lifestyle Not on track( 3:19 PM EDT) Crystal Wells APRN Note: Try to stay up during the day and be active, will make it more likely you will sleep at night Deep breathing/meditation at night Follow up with sleep lab at [facility] regarding treatment of sleep apnea food choices / tracking goals Lifestyle On track( 020 11:17 AM EST) Kathy Rodriguez RD Note: Direct substitution to meat: Tofu and tempeh (1/4 plate, can also add grains) cominations foods that go in the grain/protein part of the plate (half a plate combined, also add 1/2 plate of non starchy veggies): lentils, beans, peas, quinoa Healthy fats: Avocado, oils (salad dressing with olive oil, canola oil, cooking use sesame oil or peanut oil for flavor), nuts (pumpkin seeds, pecan, walnut, etc0 Remember fat, fiber, and protein are the full-feeling, blood-sugar balancing, weight loss promoting properties (not just protein) For example, a grain bowl: 1/2 cup whole grain 1/2 cup beans or lentils 1/4 avocado, 1-2 tbsp dressing 1-2 cups [id number] veggies Write down in a notebook with times, quantities and how you feel (fullness at the end of the meal and how long it keeps you feeling full) Consider cooking large batches of food ahead of time: can do a large batch of a single recipe or a large batch of quinoa/ beans/ veggies that can be eaten in different combinations or with different sauces, etc. Throughout the week finding a motivation missael for a rainy day activity Lifestyle No Kathy Perez RD Note: Will send list of yoga videos to help find one that is a good fit Keep in mind it might take a little time :-) weigh weekly at home regardless of classes Lifestyle No Kathy Perez RD documented as of this encounter Results * Vitamin D, 25-Hydroxy (01/29/2023 12:15 PM EDT) Vitamin D Total 25 OH 44 21 - 100 ng/mL [facility] Vit D Interp Sufficient [facility] Blood 01/29/2023 12:1 5 PM EDT 01/29/2023 12:29 PM EDT Narrative Resulting Agency Comment Spec In Lab Thalia Guidry MD CHEMISTRY ORDERABLE S [facility] [place] [address] * (ABNORMAL) Phosphorus (01/29/2023 12:15 PM EDT) Phosphorus 1.7(L) 2.5 - 4.5 mg/dL [facility] Blood 01/29/2023 12:1 5 PM EDT 01/29/2023 12:29 PM EDT Narrative Resulting Agency Comment Spec In Lab Thalia Guidry MD CHEMISTRY ORDERABLE S Performing Organization Address City/[facility]/ZIP Co de Phone Number [facility] [place] [address] * Albumin Level (01/29/2023 12:15 PM EDT) Albumin 3.9 3.2 - 5.2 g/dL [facility] Blood 01/29/2023 12:1 5 PM EDT 01/29/2023 12:29 PM EDT Narrative Resulting Agency Comment Spec In Lab Thalia Guidry MD CHEMISTRY ORDERABLE S Performing Organization Address City/[facility]/ZIP Co de Phone Number [facility] [place] [address] * PTH (01/29/2023 12:15 PM EDT) Parathyroid Hormone 24 15 - 65 pg/mL [facility] Blood 01/29/2023 12:1 5 PM EDT 01/29/2023 12:29 PM EDT Narrative Resulting Agency Comment Spec In Lab Thalia Guidry MD CHEMISTRY ORDERABLE S [facility] [place] [address] * Lipid Panel (Reflex Direct LDL) (01/29/2023 12:15 PM EDT) Cholesterol, Total 148 mg/dL [facility] Comment: Lower Risk: <200 mg/dL Average Risk: 200-239 mg/dL Higher Risk: >qh=378 mg/dL Triglyceride 197 mg/dL [facility] Comment: Average Risk/Lower Risk: <150 mg/dL Borderline High Risk: 150-199 mg/dL High Risk: 200-499 mg/dL Very High Risk: >tp=986 mg/dL HDL Cholesterol 48 mg/dL [facility] Comment: Males: ?? Higher Risk: <40 mg/dL Females: ?? Higher Risk: <50 mg/dL LDL Cholesterol 61 mg/dL [facility] Comment: Lowest Risk: <100 mg/dL Lower Risk: 100-129 mg/dL Borderline High Risk: 130-159 mg/dL High Risk: 160-189 mg/dL Very High Risk: >ah=848 mg/dL Cholesterol/HDL Ratio 3.1 ratio [facility] Lipid Interpretation See Note [facility] Comment: Lipid management should be guided by a patient? s ASCVD risk, goals and preferences. ACC/AHA Guidelines recommend high intensity statin if clinical ASCVD or LDL greater than or equal to 190 mg/dL. http://People to Rememberurl.com/JTQ-PHU-Gxiyrutvn Adults aged 40-75 with LDL 70-189 mg/dL should have their 10 year ASCVD risk estimated with the ACC/AHA ASCVD risk maple products supervisor http://tools.acc.org/ZHVOO-Kgrk-Yndgbqjxx/ Statin should be discussed if risk greater than or equal to 7.5% in non-diabetics. With diabetes, moderate intensity statin is recommended if risk less than 7.5%, high intensity if risk greater than or equal to 7.5%. Annual lipid monitoring on statins is not necessary. Evaluate secondary causes of Triglycerides greater than 500 mg/dL or LDL greater than 190 mg/dL: See table 6 of ACC/AHA Guideline. Lifestyle modification is a critical component of ASCVD risk reduction. Blood 01/29/2023 12:1 5 PM EDT 01/29/2023 12:29 PM EDT Narrative Resulting Agency Comment Spec In Lab Thalia Guidry MD CHEMISTRY ORDERABLE S [facility] [place] [address] * (ABNORMAL) Basic Metabolic Panel (non-fasting) (01/29/2023 12:15 PM EDT) Glucose 153 65 - 199 mg/dL [facility] Comment:Diabetes: >=200 mg/d L plus symptoms Blood Urea Nitrogen 13 8 - 18 mg/dL [facility] Creatinine 1.24(H) 0.70 - 1.20 mg/dL [facility] Sodium 138 135 - 145 mmol/L [facility] Potassium 4.9 3.5 - 5.0 mmol/L [facility] Comment: Please note: ??Patients with WBC >100,000 may have falsely elevated Potassium levels. ??For accurate Potassium quantification in these patients send serum separator tube (gold top) for subsequent determinations. ??Contact the Clinical Chemistry Laboratory if there are any questions. Chloride 102 98 - 107 mmol/L [facility] Carbon Dioxide 24 22 - 31 mmol/L [facility] Anion Gap 12 5 - 15 mmol/L [facility] Calcium 9.4 8.5 - 10.5 mg/dL [facility] Est Glomerular Filtration Rate 53(L) >=60 mL/min/1. 73 m?? [facility] Comment: This patient's estimated GFR was calculated using the 2020 CKD-EPI equation. The estimated GFR can vary from the measured GFR by up to 30% in the absence of rapidly changing kidney function. Assessment of the estimated GFR is not appropriate when creatinine concentrations are rapidly changing. For clinical situations in which a more precise estimate of GFR is necessary, consider alternative methods of GFR estimation such as a 24-hour urine creatinine clearance. Assignment of CKD stage 1-5 for patients with an eGFR near the transition point between stages may be based on clinical assessment of muscle mass and symptoms in addition to eGFR. Blood 01/29/2023 12:1 5 PM EDT 01/29/2023 12:29 PM EDT Narrative Resulting Agency Comment Spec In Lab Thalia Guidry MD CHEMISTRY ORDERABLE S Performing Organization Address City/[facility]/ZIP Co de Phone Number [facility] [place] [address] documented in this encounter Visit Diagnoses Diagnosis Stage 3a chronic kidney disease Elevated serum creatinine Other nonspecific findings on examination of blood Hypertension, unspecified type Insulin resistance Dysmetabolic Syndrome X Hypophosphatemia Disorders of phosphorus metabolism Class 3 severe obesity with serious comorbidity and body mass index (BMI) of 45.0 to 49.9 in adult, unspecified obesity type Angiolipoma of right kidney documented in this encounter Care Teams Environmental Services Assistant Relationship Specialty Start Date End Date Brittany Muhammad DO [address] [place] [address] PCP - General Family Medicine 01/23/19 documented as of this encounter
--- OUTSIDE RECORDS SUMMARY | 2024-05-07 02:52 | XMS_ITS | Encounter Summary ---
Author Organization [facility] Address [address] [place] [address] Care Team Providers Care Client Services Associate Name Role Phone Unknown, Provider Primary Care Provider Encounter Details Date Type Department Care Team (Late st Contact Info) Description 08/25/2020 Lab Requisition [facility] Pathology & Laboratory Medicine - [address] [id number] Outr Resulting Lab, Provider Social History Tobacco [...] Procedure Name Priority Date/Time Associated Diagnosis Comments ANTI THYROGLOBULIN After X-Ray 08/02/2020 9: 14 EST documented in this encounter Results * ANTI THYROGLOBULIN (08/02/2020 9:14 EST) Anti-Thyroglob ulin <15 <=60 U/mL 09/28/2020 14:32 EST [facility] Blood VENOUS BLOOD / Unknown 08/02/2020 9:14 EST 09/21/2020 11:26 EST Provider Outr Resulting Lab CHEMISTRY & BLOOD GAS ORDERABLES [facility] [address] [place] [address] documented in this encounter Visit Diagnoses Not on filedocumented in this encounter Care Teams Client Services Associate Relationship Specialty Start Date End Date Unknown, Provider, PCP - General 02/20/13 documented as of this encounter
--- OUTSIDE RECORDS SUMMARY | 2024-05-07 02:52 | XMS_ITS | Encounter Summary ---
Author Organization [facility] Address [facility] [place] [address] Care Team Providers Care Health And Fitness Instructor Name Role Phone RubioBrittany reynolds Jose DO Primary Care Provider +1- [phone] Encounter Details Date Type Department Care Team (Latest Contact Info) Description 01/22/2023 Travel Social History Tobacco Use Types Packs/Day Years [...] place to sleep or slept in a intermediate (including now)? No 12/29/2022 Sex and Gender Information Value Date Recorded Sex Assigned at Female 02/16/2021 7:51 PM EDT Gender Identity Female 02/16/2021 7:51 PM EDT Sexual Orientation Straight 02/16/2021 7: 51 PM EDT documented as of this encounter Plan of [...] night Follow up with sleep lab at [facility] regarding treatment of sleep apnea food choices / tracking goals Lifestyle On track(11/03/2 020 11:17 AM EST) No Kathy Perez RD Note: Direct substitution to meat: Tofu [...] 1/4 avocado, 1-2 tbsp dressing 1-2 cups [id number] veggies Write down in a notebook with [...] Perez RD documented as of this encounter Visit Diagnoses Not on filedocumented in this encounter Care Teams Health And Fitness Instructor Relationship Specialty Start Date End Date Brittany Muhammad DO [address] [place] [address] PCP - General Family Medicine 01/23/19 documented as of this encounter
--- OUTSIDE RECORDS SUMMARY | 2024-05-07 02:52 | XMS_ITS | Encounter Summary ---
Author Organization [facility] Address [facility] [place] [address] Care Team Providers Care Deicer Inspector Pneumatic Name Role Phone RubioBrittany reynolds Jose DO Primary Care Provider +1- [phone] Encounter Details Date Type Department Care Team (Latest Contact Info) Description 11/01/2023 Travel Social History Tobacco Use Types Packs/Day [...] place to sleep or slept in a chcf (including now)? No 12/29/2022 Sex and Gender [...] night Follow up with sleep lab at [facility] regarding treatment of sleep apnea food choices [...] 1/4 avocado, 1-2 tbsp dressing 1-2 cups [id number] veggies Write down in a notebook with [...] on filedocumented in this encounter Care Teams Deicer Inspector Pneumatic Relationship Specialty Start Date End Date Brittany Muhammad DO [address] [place] [place] [address] PCP - General Family Medicine 01/23/19 documented as of this encounter
--- OUTSIDE RECORDS SUMMARY | 2024-05-07 02:52 | XMS_ITS | Encounter Summary ---
Author Organization [facility] Address [facility] [place] [address] Care Team Providers Care Panelboard Assembler Name Role Phone Brittany Muhammad DO Primary Care Provider +1- [phone] Reason for Visit * Reason Comments Advice Only * Consultation (Routine) - Closed Specialty Diagnoses / Procedures Referred By Cash reese Referred To Contact Hematology and Oncology Diagnoses Other abnormality of red blood cells Brittany Muhammad DO [address] [place] [address] [facility] [address] [place] [address] Referral ID Status Reason Start Date Expiration Date V isits Requested Visits Authorized [id number] Closed Consult, Test & Treat PCP Updated and/or Approved 11/01/2022 11/01/2023 6 6 Encounter Details Date Type Department Care Team (Late st Contact Info) Description 01/03/2023 11:00 AM EDT Office Visit [place] [address] Galen Gallardo MD [facility] [place] [address] Iron deficiency; Leukocytosis, unspecified type Social History Tobacco Use Types Packs/Day Years Used Date Smoking Tobacco: Former Cigarettes 1 5 0 10/01/2000 - 10/01/2005 Smokeless Tobacco: Never Tobacco Cessation:Counseling Given: Not Answered Comments:quit 2006 Alcohol Use Standard Drinks/Week Comments Yes 0 [...] place to sleep or slept in a long term (including now)? No 12/29/2022 Sex and Gender Information Value Date Recorded Sex Assigned at Female 02/16/2021 7:51 PM EDT Gender Identity Female 02/16/2021 7:51 PM EDT Sexual Orientation Straight 02/16/2021 7: 51 PM EDT documented as of this encounter Last Filed Vital Signs Vital Sign Reading Time Taken Comments Blood Pressure 127/94 01/03/2023 11:08 AM EDT Pulse 56 01/03/2023 11:08 AM EDT Temperature 36.3 ??C (97.3 ??F) 01/03/2023 1 1:08 AM EDT Respiratory Rate 20 01/03/2023 11:0 8 AM EDT Oxygen Saturation 100% 01/03/2023 11: 08 AM EDT Inhaled Oxygen Concentration - - Weight 108.3 kg (238 lb 12.1 oz) 2022 11:08 AM EDT Height 159.3 cm (5' 2.72) 01/03/2023 1 1:08 AM EDT Body Mass Index 42.68 01/03/2023 11:08 AM EDT documented in this encounter Progress Notes * Galen Ventura MD - 01/03/2023 11:00 AM EDT Images from the original note were not included. HEMATOLOGY CONSULTATION VISIT NOTE DATE OF VISIT : 01/03/23 REFERRING PROVIDER: Dr. Brittany Muhammad REASON FOR VISIT: Red cell abnormality. HISTORY OF PRESENT ILLNESS Genie Alejandre is a 47 y.o. female referred for evaluation of Red cell abnormality. her PMH is significant for HTN, pre DM,ADHAD, depression, bipolar disorder, CARLOS, not CPAP, obesity. Data Review (From Dr.Irene Jose Muhammad and the EMR) ?? 10/25/22 - WBC: 12.9k , Hgb: 14.3, MCV: 85, PLT: 315k ?? 11/08/22 - WBC: 12.88, Hgb: 14.1, MCV: 83, Plt: 329k 10/25/22: Iron/TIBC : 53/385 Iron saturation : 14% 05/3022 : Iron/TIBC : 101/306 Iron saturation : 33% Ferritin not available on both these labs. INTERIM Hx: In office today, Genie Alejandre is here for initial consultation. She has been taking oral iron supplements for the past year until Oct when she was told to stop it as iron level went down. She hasnt received any iron infusions. She had constipation with oral iron . No other side effects. Denies any brbpr or melena. She had EGD and per pt, that was normal Stool FOBT was negative. No h.o colonoscopy. Still has menstrual periods monthly. Some times heavy and some times light. - She is not a vegan or vegetarian. - She has never donated blood. - No active cardiac/resp/GI issues; Rest of the ROS: Negative PROBLEM LIST: Reviewed Patient Active Problem List Diagnosis ??? PCOS (polycystic ovarian syndrome) ??? Papillary microcarcinoma of thyroid ??? Class 3 severe obesity with serious comorbidity and body mass index (BMI) of 45.0 to 49.9 in adult ??? Insulin resistance ??? Pre-diabetes ??? Recurrent herniation of lumbar disc ??? HNP (herniated nucleus pulposus), lumbar ??? History of nephrolithiasis ??? Right renal mass Overview Note: Probable angiomyolipoma, work up in progress March, ??? Psoriasis ??? Hypothyroid ??? Depression ??? CARLOS (obstructive sleep apnea) PAST SURGICAL Hx: Reviewed Past Surgical History: Procedure Laterality Date ??? BLADDER SURGERY 2001 Kidney stone removal ??? PRG EMG, LARYNX N/A 04/07/2019 FACIAL NERVE MONITORING, SETUP LARYNGEAL (WRVU 1.57) performed by Olive Liu MD at [facility] MAIN OR ??? PRG UNLISTED DIAGNOSTIC GASTROENTEROLOGY PROCEDURE 1992 Gallbladder removed ??? PRO LAMINOTOMY, LUMBAR DISK, 1 INTRSP 09/17/2013 LAMINOTOMY, DECOMPRESSION, FORAMINOTOMY, LUMBAR performed by Brock Trujillo MD at [facility] MAIN OR ??? PRO THYROIDECTOMY N/A 04/07/2019 THYROIDECTOMY, TOTAL OR COMPLETE (WRVU 15.04) performed by Olive Liu MD at [facility] MAIN OR MEDICATIONS: Reviewed with the pt ??? Jornay PM 40 mg ER sprinkle capsule ??? ziprasidone (Geodon) 20 mg capsule ??? levothyroxine (Synthroid) 200 mcg Tablet ??? cetirizine (ZyrTEC) 10 mg Tablet ??? guanFACINE (Tenex) 1 mg Tablet ??? propranoloL (Inderal) 10 mg Tablet ??? metFORMIN XR (Glucophage XR) 500 mg Tablet Sustained Release 24 hr ??? BLOOD SUGAR DIAGNOSTIC, DISC MISC ??? blood sugar diagnostic (GLUCOMETER DEX TEST SENSORS INVT) ??? lancets Misc ??? lansoprazole (PREVACID) 30 mg Capsule, Delayed Release(E.C.) ??? spironolactone (ALDACTONE) 50 mg Tablet ??? lamoTRIgine (LAMICTAL) 150 mg Tablet ??? norgestimate-ethinyl estradiol (TRI SPRINTEC) 0.18/0.215/0.25 mg-35 mcg (28) Tablet ??? losartan (COZAAR) 25 mg Tablet ??? Victoza 3-Bob 0.6 mg/0.1 mL (18 mg/3 mL) Pen Injector ??? desonide (DESOWEN) 0.05 % Lotion ??? FLUTICASONE PROPION-SALMETEROL INHL ??? azelastine (ASTELIN) 137 mcg (0.1 %) Aerosol, Lane ??? dextroamphetamine-amphetamine (Adderall) 10 mg Tablet ??? fluticasone propionate (FLONASE) 50 mcg/actuation Lane, Suspension ??? Ventolin HFA 90 mcg/actuation HFA Aerosol Inhaler ??? clonazePAM (KlonoPIN) 0.5 mg Tablet, Rapid Dissolve ??? loratadine (Claritin) 10 mg Tablet ??? SUMAtriptan (IMITREX) 50 mg Tablet ALLERGIES/ADR: Reviewed Allergies Allergen Reactions ??? Bupropion Mood swings ??? Flexeril [Cyclobenzaprine] Anger PERSONAL and SOCIAL HISTORY: Reviewed ?? [facility] ?? Smoking: quit smoking 10 years ago. FAMILY HISTORY Family History Problem Relation Age of Onset ??? Cancer Maternal Grandmother ??? Cancer Maternal Grandfather ??? Coronary Artery Disease Maternal Grandmother ??? Diabetes Maternal Grandmother ??? Diabetes Paternal Aunt ??? Heart Disease Maternal Grandmother ??? High Blood Pressure Paternal Grandfather ??? High Cholesterol Paternal Grandfather PHYSICAL EXAM VITAL SIGNS: Blood pressure (!) 127/94, pulse 56, temperature 36.3 ??C (97.3 ??F), temperature source Temporal, resp. rate 20, height 159.3 cm (5' 2.72), weight 108.3 kg (238 lb 12.1 oz), SpO2 100 %. Body mass index is 42.68 kg/m??. ECOG PS: 1 GENERAL: Genie Alejandre is a well-appearing 47 y.o. female in no acute distress. HEENT: , no conjunctival pallor , no scleral icterus; Oropharynx : moist , clear, No lesions, No thrush. ENDOCRINE: No thyromegaly palpated. CARDIOVASCULAR: Heart with regular rate and rhythm without S3,S4 or murmurs. PULMONARY: Lungs are clear to auscultation without rales, rhonchi or wheezing. GASTROINTESTINAL: Abdomen soft and non-tender without palpable masses or hepatosplenomegaly. MUSCULOSKELETAL: Neck supple with full ROM. No spine or CVA tenderness. SKIN: No rashes, bruises or petechiae. NEUROLOGICAL: No focal neurological deficits; EXT: No peripheral edema. PSYCHIATRIC: normal affect and mood LABORATORY Recent Results (from the past 72 hour(s)) Iron and TIBC Result Value Ref Range Iron 50 30 - 150 mcg/dL TIBC 377 250 - 450 mcg/dL Iron Saturation 13 (L) 20 - 50 % Reticulocyte Count Result Value Ref Range Retic Ct % 1.9 0.7 - 2.5 % Retic Ct Abs 0.110 0.020 - 0.110 x10(6)/mcL Immature Retic% 11.8 0.5 - 13.8 % Reticulated Hgb 31.0 29.8 - 39.4 pg Ferritin Result Value Ref Range Ferritin 129 15 - 150 ng/mL TSH Result Value Ref Range TSH 1.21 0.27 - 4.20 mcIU/mL Hemogram Result Value Ref Range WBC 11.7 (H) 4.0 - 9.5 x10(3)/mcL RBC 5.65 (H) 4.00 - 5.21 x10(6)/mcL Hemoglobin 15.2 11.7 - 15.5 g/dL Hematocrit 45.7 35.7 - 45.8 % MCV 80.9 (L) 82.6 - 94.4 fL MCH 26.9 (L) 27.1 - 32.0 pg MCHC 33.3 31.7 - 35.0 g/dL Platelets 321 145 - 357 x10(3)/mcL RDWSD 39.1 37.0 - 46.0 fL RDWCV 13.4 11.5 - 14.1 % MPV 9.5 7.6 - 12.9 fL nRBC % Auto 0.0 % nRBC Abs Auto 0.000 0.000 - 0.000 x10(3)/mcL Differential, Automated Result Value Ref Range Neutrophils % 65.2 % Neutr Abs (ANC) 7.62 (H) 1.70 - 6.10 x10(3)/mcL Lymphocytes % 26.4 % Lymphocytes Abs 3.1 0.9 - 3.2 x10(3)/mcL Monocytes % 7.8 % Monocyte Abs 0.9 0.3 - 0.9 x10(3)/mcL Eosinophils % 0.0 % Eosinophils Abs 0.0 0.0 - 0.4 x10(3)/mcL Basophils % 0.2 % Basophils Abs 0.0 0.0 - 0.1 x10(3)/mcL Immature Gran % 0.40 % Monse Gran Abs 0.05 (H) 0.00 - 0.04 x10(3)/mcL RADIOLOGY - I reviewed all the pertinent available imaging. ASSESSMENT & PLANS Genie Alejandre is a 47 y.o. female with PMH of HTN, pre DM, ADHAD, depression, bipolar disorder, CARLOS, not CPAP, obesity, referred for evaluation of red cell abnormality. We did some labs today for further evaluation. Her CBC from today showed chronic mild leukocytosis with WBC of 11.7, absolute neutrophilia. She was evaluated for this by Dr. Flanagan in 2020 and was felt to be reactive . CBC from today is notable for slightly high RBC count with normal H/H , microcytosis, normal Retic Hgb. Iron studies show normal iron, TIBC, ferritin at 129 with low iron saturation.Based on these labs, she does not have any iron deficiency. It could represent inflammation pattern. Of note, she wasseen by Dr. Harris in 2011 for erythrocytosis which was felt to be reactive. She does not have any hematology problems. She does not need further f/up with me. Labs were done after the visit. I called Ms. Genie Alejandre after the visit and reviewed all the test results and my recommendations . She agreed with the plan. ? 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 I request her PCP to f/up on that. I reviewed my impression and recommendations with Genietiffanie Alejandre and answered all the questions..Pt agreed with the plan. Thank you Birttany Ku for asking us to see this very pleasant patient. Please don't hesitate to contact me if you'd like to discuss this patient's situation further. Galen Ventura MD [facility] CC: Brittany B DO Sabina Muhammad Irene B documented in this encounter Plan of Treatment [...] Follow up with sleep lab at [facility] regarding treatment of sleep apnea food choices / tracking goals Lifestyle On track( 11:17 AM EST) No Kathy Perez RD [...] 1/4 avocado, 1-2 tbsp dressing 1-2 cups [id number] veggies Write down in a notebook with [...] week finding a motivation missael for a day activity Lifestyle No Kathy Perez RD Note: Will send list of yoga videos to help find one that is a good fit Keep in mind it might take a little time :-) weigh weekly at home regardless of classes Lifestyle No Kathy Perez RD documented as of this encounter Results * (ABNORMAL) Iron and TIBC (01/03/2023 11:47 AM EDT) Iron 50 30 - 150 mcg/dL [facility] TIBC 377 250 - 450 mcg/dL [facility] Iron Saturation 13(L) 20 - 50 % [facility] Blood 01/03/2023 11:4 7 AM EDT 01/03/2023 11:52 AM EDT Narrative Resulting Agency Comment Spec In Lab Galen Gallardo MD CHEMISTRY ORDERA BLEEj [facility] [place] [address] * Reticulocyte Count (01/03/2023 11:47 AM EDT) Reticulocyte % 1.9 0.7 - 2.5 % [facility] Retic Abs # 0.110 0.020 - 0.110 x10(6)/mcL [facility] Immature Retic% 11.8 0.5 - 13.8 % [facility] Reticulated Hgb 31.0 29.8 - 39.4 pg [facility] Blood 01/03/2023 11:4 7 AM EDT 01/03/2023 11:52 AM EDT Narrative Resulting Agency Comment Spec In Lab Galen Gallardo MD HEMATOLOGY ORDER LATOSHA Performing Organization Address City/[facility]/ZIP Co de Phone Number [facility] [place] [address] * Ferritin (01/03/2023 11:47 AM EDT) Ferritin 129 15 - 150 ng/mL [facility] Comment: Pediatric reference ranges not verified at [facility], interpret with caution. Reference ranges for females greater than 50 years of age approach values for men, i.e., 30-400 ng/mL. Blood 01/03/2023 11:4 7 AM EDT 01/03/2023 11:52 AM EDT Narrative Resulting Agency Comment Spec In Lab Galen Gallardo MD CHEMISTRY ORDERA BLES Performing Organization Address City/[facility]/ZIP Co de Phone Number [facility] [place] [address] documented in this encounter Visit Diagnoses Diagnosis Iron deficiency Iron deficiency anemia, unspecified Leukocytosis, unspecified type documented in this encounter Care Teams Panelboard Assembler Relationship Specialty Start Date End Date Brittany Muhammad DO [address] [place] [address] PCP - General Family Medicine 01/23/19 documented as of this encounter
--- OUTSIDE RECORDS SUMMARY | 2024-05-07 02:52 | XMS_ITS | Encounter Summary ---
Author Organization [facility] Address [facility] [place] [address] Care Team Providers Care Echometer Engineer Name Role Phone RubioBrittany reynolds Jose DO Primary Care Provider +1- [phone] Encounter Details Date Type Department Care Team (Latest Contact Info) Description 01/03/2023 Travel Social History Tobacco Use Types Packs/Day [...] night Follow up with sleep lab at [facility] regarding treatment of sleep apnea food [...] 1/4 avocado, 1-2 tbsp dressing 1-2 cups [id number] veggies Write down in a notebook with [...] on filedocumented in this encounter Care Teams Echometer Engineer Relationship Specialty Start Date End Date Brittany Muhammad DO [address] [place] [address] PCP - General Family Medicine 01/23/19 documented as of this encounter
--- OUTSIDE RECORDS SUMMARY | 2024-05-07 02:52 | XMS_ITS | Clinical Summary ---
Author Organization [facility] Address [address] [place] [address] Care Team Providers Care Geophysical Engineer Name Role Phone Unknown, Provider Primary Care Provider Social History Tobacco Use Types Packs/Day Years Used Date Smoking Tobacco: Never Assessed Interpersonal Safety Answer Date Record ed Physically Hurt Never 2020 Verbally Threaten Not on file 2020 Sex and Gender Information Value Date Recorded Sex Assigned at Not on file Gender Identity Not on file Sexual Orientation Not on file Plan of Treatment Health Maintenance Due Date Last Done Comments Hepatitis C Screen 1973 Hepatitis B Vaccine (1 of 3 - 19+ 3-dose series) 05/02 COVID-19 Vaccine ( season) 2023 Care Teams Geophysical Engineer Relationship Specialty Start Date End Date Unknown, Provider, PCP - General 02/20/13
--- OUTSIDE RECORDS SUMMARY | 2024-05-07 02:52 | XMS_ITS | Encounter Summary ---
Author Organization [facility] Address [address] [place] [address] Care Team Providers Care Drug Abuse Worker Name Role Phone Unknown, Provider Primary Care Provider Encounter Details Date Type Department Care Team (Late st Contact Info) Description 10/11/2020 Lab Requisition [facility] Pathology & Laboratory Medicine - [facility] [address] [place] [address] Cristian Paula MD [address] [place] [address] [id number] Encounter for other general examination Social History Tobacco Use Types Packs/Day Years [...] Procedure Name Priority Date/Time Associated Diagnosis Comments SURGICAL PATHOLOGY Today 10/11/2020 14 :07 EST Encounter for other general examination documented in this encounter Results * SURGICAL PATHOLOGY (10/11/2020 14:07 EST) Final Diagnosis A. DUODENUM, BIOPSY: - Superficial fragments of small bowel mucosa with no specific pathologic features. B. STOMACH, ANTRUM, BIOPSY: - Gastric body mucosa with no specific pathologic features. C. GASTROESOPHAGEAL JUNCTION, BIOPSY: - Gastric cardia type mucosa with histologic features of reflux esophagitis. - Gastric fundic mucosa with no specific pathologic features. - Negative for intestinal metaplasia; Negative for dysplasia. 10/13/2020 17:49 [facility] Attestation By the signature below, the attending physician certifies that they have 1) personally conducted a gross and/or microscopic examination of the described specimen(s), and/or personally interpreted the results of laboratory testing of the described specimen(s), and 2) personally rendered or confirmed the above diagnosis. 10/13/2020 17:49 [facility] at 1749 Clinical History GERD, abdominal pain 10/13/2020 17:49 [facility] Gross Description A. Received in formalin labelled with proper patient identification (initials S, H) and Bx duodenum are 2 fragments of brown tissue; each measuring 0.2 x 0.2 x 0.2 cm). The specimens are submitted in A1. B. Received in formalin labelled with proper patient identification (initials S, H) and Bx gastric antrum are 3 fragments of banuelos tissue; each measuring 0.3 x 0.3 x 0.2 cm. The specimens are submitted in B1. C. Received in formalin labelled with proper patient identification (initials S, H) and Bx GE junction is a single fragment of white tissue (0.2 x 0.2 x 0.2 cm). The specimen is submitted in C1. BRITTNEY PINK([facility]) 10/12/2020 8:19 10/13/2020 17:49 [facility] Performing Lab [facility] 17:49 [facility] Scanned Images 10/13/2020 17:49 [facility] Tissue ENTIRE ESOPHAGUS / Unknown 10/11/2020 14:07 EST 10/11/2020 23:19 EST Tissue specimen (specimen) STOMACH STRUCTURE / Unknown 10/11/2020 14:07 EST 10/11/2020 23:19 EST Tissue specimen (specimen) ESOPHAGEAL STRUCTURE / Unknown 10/11/2020 14:07 EST 10/11/2020 23:19 EST Cristian Paula MD PATHOLOGY ORDERA [facility] [address] [place] [address] documented in this encounter Visit Diagnoses Diagnosis Encounter for other general examination documented in this encounter Care Teams Drug Abuse Worker Relationship Specialty Start Date End Date Unknown, Provider, PCP - General 02/20/13 documented as of this encounter
--- OUTSIDE RECORDS SUMMARY | 2024-05-07 02:52 | XMS_ITS | Encounter Summary ---
Author Organization Formerly [facility], Later [facility] Address [facility] [place] [address] Care Team Providers Care Data Warehousing Architect Name Role Phone RubioBrittany reynolds Jose DO Primary Care Provider [phone]- [phone] Encounter Details Date Type Department Care Team (Latest Contact Info) Description 01/29/2023 Travel Social History Tobacco Use Types Packs/Day [...] place to sleep or slept in a senior care (including now)? No 12/29/2022 Sex and Gender [...] night Follow up with sleep lab at [facility] regarding treatment of sleep apnea [...] 1/4 avocado, 1-2 tbsp dressing 1-2 cups [id number] veggies Write down in a notebook with [...] on filedocumented in this encounter Care Teams Data Warehousing Architect Relationship Specialty Start Date End Date Brittany Muhammad DO [address] [place] [place] [place] [address] PCP - General Family Medicine 01/23/19 documented as of this encounter
--- OUTSIDE RECORDS SUMMARY | 2024-05-07 02:52 | XMS_ITS | Clinical Summary ---
Author Organization Formerly [facility] Address [facility] [place] [address] Care Team Providers Care Apparatus Repair Mechanic Name Role Phone Brittany Muhammad DO Primary Care Provider [phone]- [phone] Allergies Active Allergy Reactions Criticality Noted Date Comments Budesonide-Formoterol High 10/27/2022 Other reaction(s): severe muscle spasms Bupropion Low 02/27/2020 Mood swings Cyclobenzaprine Low 02/27/2020 Anger Liraglutide High 10/27/2022 Other reaction(s): Nausea Lisinopril High 10/27/2022 Other reaction(s): cough Medications Medication Sig Dispensed Refills Start Date End Date Status lamoTRIgine (LAMICTAL) 150 mg Tablet TK 1 T PO D 2 06/27/2019 Active norgestimate-ethi nyl estradiol (TRI SPRINTEC) 0.18/0.215/0.25 mg-35 mcg (28) Tablet Take 1 tablet by mouth daily. 84 tablet 3 07/11/2019 Active spironolactone (ALDACTONE) 50 mg Tablet Take 1 tablet by mouth daily. 90 tablet 3 10/24/2019 Active Additional Information Patient taking differently:50 mg Oral2 TIMES DAILY, Reported on 03/11/2020 Ventolin HFA 90 mcg/actuation HFA Aerosol Inhaler Inhale 90 mcg into the lungs as needed. 01/05/2020 Active lansoprazole (PREVACID) 30 mg Capsule, Delayed Release(E.C.) Take 30 mg by mouth daily. Active metFORMIN XR (Glucophage XR) 500 mg Tablet Sustained Release 24 hrIndications:Cla ss 3 severe obesity with serious comorbidity and body mass index (BMI) of 45.0 to 49.9 in adult, unspecified obesity type,Insulin resistance,Pre-di abetes Take 2 tablets by mouth 2 times daily (with meals). 120 tablet 07/14/2021 Active Additional Information Patient taking differently: 750 mgOralDAILY, Reported on 11/01/2023 cetirizine (ZyrTEC) 10 mg Tablet Take 10 mg by mouth daily. 02/22/2022 Active guanFACINE (Tenex) 1 mg Tablet Take 1 mg by mouth nightly. 02/22/2022 Active Jornay PM 40 mg ER sprinkle capsule Take 40 mg by mouth nightly. 12/15/2022 Active ziprasidone (Geodon) 20 mg capsule TAKE ONE CAPSULE BY MOUTH TWICE A DAY WITH FOOD 12/19/2022 Active cholecalciferol, Vitamin D3, 25 mcg (1,000 unit) Capsule 2,000 Units. 12/22/2021 Active SUMAtriptan (IMITREX) 20 mg/actuation [place], Non-Aerosol 1 spray by Nasal route as needed for Migraine. 01/20/2022 Active cyanocobalamin, Vitamin B-12, (Vitamin B-12) 100 mcg tablet Take 100 mcg by mouth daily. Active Magnesium 200 mg tablet Take 200 mg by mouth daily. Active lurasidone (Latuda) 60 mg tablet TAKE ONE TABLET BY MOUTH EVERY EVENING; MUST ADMINISTER WITH FOOD (AT LEAST 350 CALORIES) 09/21/2023 Active Ozempic 1 mg/dose (4 mg/3 mL) Pen Injector INJECT 1MG SUBCUTANEOUSLY EVERY WEEK; INCREASE TO START APPROX 05/12/23 THEN WEEKLY 10/06/2023 Active levothyroxine (Synthroid) 150 mcg tablet Take 1 tablet by mouth daily. 90 tablet 3 01/16/2024 Active Active Problems Problem Noted Date Diagnosed Date CKD (chronic kidney disease), stage III 01/30/20 Elevated serum creatinine 01/29/2023 Hypophosphatemia 01/29/2023 Angiolipoma of right kidney 01/26/2023 Autoimmune disease 01/26/2023 Bipolar II disorder, moderat e, depressed, with anxious distress 01/26/2023 Eczema 01/26/2023 Hypertension 01/26/2023 Vitamin D deficiency 01/26/2023 Class 3 severe obesity with serious comorbidity and body mass index (BMI) of 45.0 to 49.9 in adult 02/27/2020 Insulin resistance 02/27/2020 Resolved Problems Problem Noted Date Diagnosed Date Resolved Date ADHD (attention deficit hype ractivity disorder), combined type 01/26/2023 01/29/2023 DESTINY (acute kidney injury) 01/26/2023 Anxiety 01/26/2023 01/29/2023 Asthma 01/26/2023 01/29/2023 At risk for impaired digestion 01/26/2023 01/29/2023 Cluster headache, episodic 01/26/2023 0 01/29/2023 Elevated red blood cell count 01/26/2023 01/29/2023 Encounter for medication rev iew and counseling 01/26/2023 01/29/2023 Erosive esophagitis 01/26/2023 01/30/20 23 Fatigue 01/26/2023 01/29/2023 Fatty stools 01/26/2023 01/29/2023 Gastritis determined by endoscopy 01/26/2023 01/29/2023 H/O esophagogastroduodenoscopy 01/26/2023 01/29/2023 H/O thyroidectomy 01/26/2023 01/29/2023 Hip pain, right 01/26/2023 01/29/2023 Hordeolum externum (stye) 01/26/2023 Hypomania 01/26/2023 01/29/2023 Insomnia 01/26/2023 01/29/2023 Intermittent palpitations 01/26/2023 Iron deficiency 01/26/2023 01/29/2023 Leukocytosis 01/26/2023 01/29/2023 Migraine headache with aura 01/26/2023 01/29/2023 Motility disorder of intestine 01/26/2023 01/29/2023 Odynophagia 01/26/2023 01/29/2023 Post-nasal drip 01/26/2023 01/29/2023 Post-traumatic stress disorder 01/26/2023 01/29/2023 Renal insufficiency syndrome 01/26/2023 01/29/2023 Seasonal allergic rhinitis 01/26/2023 0 01/29/2023 Type 2 diabetes mellitus 01/26/202310/2022 PCOS (polycystic ovarian syndrome) 03/11/2020 01/29/2023 Papillary microcarcinoma of thyroid 03/11/2020 01/29/2023 Pre-diabetes 02/27/2020 01/29/2023 Recurrent herniation of lumbar disc 03/30/2014 01/29/2023 HNP (herniated nucleus pulposus), lumbar 07/17/2013 01/29/2023 History of nephrolithiasis 05/09/2013 0 01/29/2023 Right renal mass 03/06/2013 01/29/2023 Overview (03/06/2013): Probable angiomyolipoma, work up in progress March, Psoriasis 03/06/2013 01/29/2023 Hypothyroid 03/06/2013 01/29/2023 Depression 03/06/2013 01/29/2023 CARLOS (obstructive sleep apnea) 03/06/2013 01/29/2023 Immunizations Name Administration Dates Next Due Covid-19 (Pfizer), [place]enthal Cap Bivalent 30mcg (12Yrs+) 07/11/2022 Influenza Quadrivalent, Pres ervative Free 07/11/2022,08/30/2021,07/26/2020,2018,08/19/2018,09/20/2017 Influenza Unspecified Formulation 09/13/2018 Moderna Covid-19 Monovalent 12Yr+ (Ophthalmologist Retina Specialist 100mcg) 08/19/2021,01/19/2021,12/22/2020 Pneumococcal Conjugate (Prevnar 20) 02/17/2022 Tdap 05/24/2021,08/15/2010 Family History Medical History Relation Comments Cancer Maternal Grandfather Cancer Maternal Grandmother Coronary Artery Disease Maternal Grandmother Diabetes Maternal Grandmother Heart Disease Maternal Grandmother Diabetes Paternal Aunt High Blood Pressure Paternal Grandfather High Cholesterol Paternal Grandfather Relation Status Comments Maternal Grandfather Maternal Grandmother Paternal Aunt Paternal Grandfather Social History Tobacco Use Types Packs/Day Years [...] place to sleep or slept in a correction (including now)? No 12/29/2022 Sex and Gender Information Value Date Recorded Sex Assigned at Female 02/16/2021 7:51 PM EDT Gender Identity Female 02/16/2021 7:51 PM EDT Sexual Orientation Straight 02/16/2021 7: 51 PM EDT Last Filed Vital Signs Vital Sign Reading Time Taken Comments Blood Pressure 127/84 11/01/2023 1:17 PM EST Pulse 72 11/01/2023 1:17 PM EST Temperature 36.8 ??C (98.3 ??F) 11/01/2023 1:17 PM ES T Respiratory Rate 20 01/03/2023 11:08 AM EDT Oxygen Saturation 98% 11/01/2023 1:17 PM EST Inhaled Oxygen Concentration - - Weight 89.9 kg (198 lb 3.2 oz) 11/01/2023 1:17 P M EST Height 160 cm (5' 3) 11/01/2023 1:17 PM EST Body Mass Index 35.11 11/01/2023 1:17 PM EST Plan of Treatment Health Maintenance Due Date Last Done Comments CT Colonography 1973 Colonoscopy 1973 Colorectal Cancer Screening 1973 FIT DNA 1973 FIT 1973 Sigmoidoscopy (10 year) with FIT yearly 1973 Sigmoidoscopy 1973 HIV screen 1991 Hepatitis C Screening 1991 Hepatitis B vaccine (0-59 yrs) (1) 1992 HPV test 2003 PAP Smear 2003 Breast Cancer Share Decision Needed 2013 Breast Cancer screening 2013 Zoster vaccine (1 of 2) 2023 Covid-19 Vaccine (2022-2 4 season) 2023 07/11/2022, 08/19/2021, 01/19/2021, Additional history exists Influenza (Flu) vaccine (1 o f 1 - Influenza standard series) 06/01/2024 07/11/2022, 08/30/2021, 07/26/2020, Additional history exists Diabetes Screening (HgbA1C o r Glucose) 11/01/2026 11/01/2023, 11/01/2023, 01/29/2023, Additional history exists Lipid Screening 01/30/2028 01/29/2023 Tetanus vaccine 05/24/2031 05/24/2021, 08/15/2010 Tdap adult Completed 05/24/2021, 08/15/2010 Goals Goal Patient Goal Type Associated Problems Recent Progress Patient-Stated? Author medication Lifestyle On track( 11:55 AM EDT) No Crystal Holley APRN Note: Continue metformin 1000mg in the evening with food movement Lifestyle On track( 11:55 AM EDT) No Crystal Holley APRN Note: Continue what might help make [...] up with sleep lab at [facility] regarding treatment of sleep apnea food [...] 1/4 avocado, 1-2 tbsp dressing 1-2 cups [id number] veggies Write down in a notebook with [...] of classes Lifestyle No Kathy Perez RD Procedures Procedure Name Priority Date/Time Associated Diagnosis Comments HEMOGLOBIN A1C Routine 11/01/2023 12:15 PM EST Thyroid cancer Hypothyroidism, postsurgical Prediabetes Vitamin D insufficiency PCOS (polycystic ovarian syndrome) LIPID PANEL (REFLEX DIRECT LDL) Routine 01/29/2023 12:15 PM EDT Stage 3a chronic kidney disease from Last 3 Months or Most Recently Relevant to Health Maintenance Results * Hemoglobin A1c (11/01/2023 12:15 PM EST) Hemoglobin A1c 5.3 4.3 - 5.6 % [facility] Comment: Reference Range: 4.3 - 5.6% 5.7 - 6.4% - Increased Risk of Developing Diabetes Mellitus >= 6.5% - Consistent with diagnosis of Diabetes Mellitus In the absence of hyperglycemia (i.e. plasma glucose > 200 mg/dL) or classic symptoms of hyperglycemia a repeat measurement of HbA1c should be performed on a separate sample to confirm the diagnosis. Diagnosis and Classification of Diabetes Mellitus, Diabetes Care 2013; 36: Suppl. 1, S67-91 Estimated Average Glucose 105 mg/dL [facility] Blood 11/01/2023 12:1 5 PM EST 11/01/2023 12:29 PM EST Narrative Resulting Agency Comment Spec In Lab Mark Anthony Watts MD CHEMISTRY ORDERAB LES [facility] [place] [address] * Lipid Panel (Reflex Direct LDL) (01/29/2023 12:15 PM EDT) Cholesterol, Total 148 mg/dL [facility] Comment: Lower Risk: <200 mg/dL Average Risk: 200-239 mg/dL Higher Risk: >xb=287 mg/dL Triglyceride 197 mg/dL [facility] Comment: Average Risk/Lower Risk: <150 mg/dL Borderline High Risk: 150-199 mg/dL High Risk: 200-499 mg/dL Very High Risk: >aa=077 mg/dL HDL Cholesterol 48 mg/dL [facility] Comment: Males: ?? Higher Risk: <40 mg/dL Females: ?? Higher Risk: <50 mg/dL LDL Cholesterol 61 mg/dL [facility] Comment: Lowest Risk: <100 mg/dL Lower Risk: 100-129 mg/dL Borderline High Risk: 130-159 mg/dL High Risk: 160-189 mg/dL Very High Risk: >bs=840 mg/dL Cholesterol/HDL Ratio 3.1 ratio [facility] Lipid Interpretation See Note [facility] Comment: Lipid management should be guided by a patient? s ASCVD risk, goals and preferences. ACC/AHA Guidelines recommend high intensity statin if clinical ASCVD or LDL greater than or equal to 190 mg/dL. http://Quture.com/LEV-JIM-Xomosmogk Adults aged 40-75 with LDL 70-189 mg/dL should have their 10 year ASCVD risk estimated with the ACC/AHA ASCVD risk granulator http://tools.acc.org/WQFXW-Gkkh-Nnssbfaxr/ Statin should be discussed if risk greater [...] Lab Thalia Guidry MD CHEMISTRY ORDERABLE S [facility] [place] [address] from Last 3 Months or Most Recently Relevant to Health Maintenance Care Teams Apparatus Repair Mechanic Relationship Specialty Start Date End Date Brittany Muhammad DO [address], [place] [id number] PCP - General Family Medicine 01/23/19
--- OUTSIDE RECORDS SUMMARY | 2024-05-07 02:52 | XMS_ITS | Encounter Summary ---
Author Organization [facility] Address [address] [place] [address] Care Team Providers Care Forensic Chemist Name Role Phone Unknown, Provider Primary Care Provider Encounter Details Date Type Department Care Team (Late st Contact Info) Description 10/08/2019 Lab Requisition [facility] Pathology & Laboratory Medicine - [facility] [address] [place] [address] Cristian Paula MD [address] [place] [address] [id number] Encounter for other general examination Social History [...] Date/Time Associated Diagnosis Comments SURGICAL PATHOLOGY Today 10/08/2019 7: 48 EST Encounter for other general examination documented in this encounter Results * SURGICAL PATHOLOGY (10/08/2019 7:48 EST) Final Diagnosis A. STOMACH, PYLORUS, BIOPSY: - Gastric antral mucosa with moderate active chronic inflammation and erosion in background of reactive (chemical) gastropathy. See comment. - Negative for Helicobacter pylori microorganisms on IHC stained section. - Moderate epithelial inflammatory atypia noted, negative for dysplasia. - Deeper sections x3 examined. B. STOMACH, ANTRUM, BIOPSY: - Gastric antral mucosa with reactive (chemical) gastropathy. - Negative for Helicobacter pylori microorganisms on H&E stained sections. 10/10/2019 15:47 EST [facility] at 1547 Diagnosis Comment Immunoperoxidase stains were performed on this case. ANTIBODY(CLONE)(BLO CK):RESULT H pylori (Rabbit Monoclonal (SP48), [place]) (A/1): Negative. NOTE: One or more of the reagents used in immunoperoxidase testing in this case may not have been cleared or approved by the U.S. Food and Drug Administration (FDA). The FDA has determined that such clearance or approval is not necessary. These tests are used for clinical purposes. They should not be regarded as investigational or for research. These reagents' performance characteristics have been determined by [facility] and/or by the referring laboratory. The positive and negative controls worked appropriately. If immunoperoxidase staining has been performed on alcohol fixed cytology specimens, which has not been fully validated, the assays should be interpreted with caution and correlated with clinical data. This laboratory is certified under the Clinical Laboratory Improvement Amendments of 1988 (CLIA-88) as qualified to perform high complexity clinical laboratory testing. Riveter Hand slides of this case were reviewed at the intradepartmental consultation conference. 10/10/2019 15:47 [facility] Clinical History GERD Pylorus Bx's Antrum Bx's 10/10/2019 15:47 [facility] Attestation By the signature below, the attending physician certifies that they have personally conducted a gross and/or microscopic examination of the described specimens and rendered or confirmed the above diagnosis. 10/10/2019 15:47 [facility] at 1547 Gross Description A. Received in formalin labelled with proper patient identification (initials S, H) and 1. Pylorus Bx's are 2 banuelos tissues (0.2 x 0.1 x 0.1 cm to 0.5 x 0.4 x 0.2 cm). Submitted in toto in A1. B. Received in formalin labelled with proper patient identification (initials S, H) and 2. Antrum Bx's are 3 banuelos-brown tissues (0.2 x 0.1 x 0.1 cm to 0.3 x 0.3 x 0.2 cm). Submitted in toto in B1. Tatum Null 10/09/2019 07:47 10/10/2019 15:47 EST [facility] Scanned Images 10/10/2019 15:47 EST [facility] Tissue ENTIRE STOMACH / Unknown 10/08/2019 7:48 EST 10/08/2019 17:15 EST Tissue specimen (specimen) STOMACH STRUCTURE / Unknown 10/08/2019 7:48 EST 10/08/2019 17:15 EST Cristian Paula MD PATHOLOGY ORDERA BLES [facility] [address] [place] [address] documented in this encounter Visit Diagnoses Diagnosis Encounter for other general examination documented in this encounter Care Teams Forensic Chemist Relationship Specialty Start Date End Date Unknown, Provider, PCP - General 02/20/13 documented as of this encounter
--- OUTSIDE RECORDS SUMMARY | 2024-05-07 02:52 | XMS_ITS | Encounter Summary ---
Author Organization [facility] [place] [address] Care Team Providers Care Interior Decorator Paperhanging Name Role Phone Brittany Muhammad DO Primary Care Provider [phone]- [phone] Encounter Details Date Type Department Care Team (Latest Contact Info) Description 01/03/2023 11:41 AM EDT - 01/03/2023 11:59 PM EDT Hospital Encounter Hematology [place] [address] Iron deficiency; Leukocytosis, unspecified type; Hypothyroidism, postsurgical Discharge Disposition: Home Social History Tobacco Use Types Packs/Day Years [...] place to sleep or slept in a assisted (including now)? No 12/29/2022 Sex and Gender Information Value Date Recorded Sex Assigned at Female 02/16/2021 7:51 PM EDT Gender Identity Female 02/16/2021 7:51 PM EDT Sexual Orientation Straight 02/16/2021 7: 51 PM EDT documented as of this encounter Medications at Time of Discharge Medication Sig Dispensed Refills Start Date End Date cholecalciferol, Vitamin D3, 25 mcg (1,000 unit) Capsule 2,000 Units. 12/22/2021 SUMAtriptan (IMITREX) 20 mg/actuation Guinda, Non-Aerosol 1 spray by Nasal route as needed for Migraine. 01/20/2022 Jornay PM 40 mg ER sprinkle capsule Take 40 mg by mouth nightly. 12/15/2022 ziprasidone (Geodon) 20 mg capsule TAKE ONE CAPSULE BY MOUTH TWICE A DAY WITH FOOD 12/19/2022 cetirizine (ZyrTEC) 10 mg Tablet Take 10 mg by mouth daily. 02/22/2022 guanFACINE (Tenex) 1 mg Tablet Take 1 mg by mouth nightly. 02/22/2022 metFORMIN XR (Glucophage XR) 500 mg Tablet Sustained Release 24 hrIndications:Class 3 severe obesity with serious comorbidity and body mass index (BMI) of 45.0 to 49.9 in adult, unspecified obesity type,Insulin resistance,Pre-diabete s Take 2 tablets by mouth 2 times daily (with meals). 120 tablet 07/14/2021 lansoprazole (PREVACID) 30 mg Capsule, Delayed Release(E.C.) Take 30 mg by mouth daily. Ventolin HFA 90 mcg/actuation HFA Aerosol Inhaler Inhale 90 mcg into the lungs as needed. 01/05/2020 spironolactone (ALDACTONE) 50 mg Tablet Take 1 tablet by mouth daily. 90 tablet 3 10/24/2019 lamoTRIgine (LAMICTAL) 150 mg Tablet TK 1 T PO D 2 06/27/2019 norgestimate-ethinyl estradiol (TRI SPRINTEC) 0.18/0.215/0.25 mg-35 mcg (28) Tablet Take 1 tablet by mouth daily. 84 tablet 3 07/11/2019 dextroamphetamine sulfate (Dextrostat) 5 mg tablet TAKE ONE TABLET BY MOUTH TWICE A DAY; MAY TAKE 6 HOURS APART; MAXIMUM DAILY DOSE = 2 08/29/2022 01/26/2023 Trintellix 10 mg tablet 10/03/2022 01/26/2023 Trintellix 5 mg tablet 10/03/202201/26 iron sucrose (Venofer) 200 mg iron/10 mL Solution every week 10/27/2022 01/26/2023 Zinc Oxide (Dr. Brown's Diaper) 10 % Ointment 2 to 4 times per day 07/11/2022 023 levothyroxine (Synthroid) 200 mcg Tablet 1 tab Sun-Sun and 0.5 tab on Sundays. 90 tablet 3 10/16/2022 11/01/2023 Victoza 3-Bob 0.6 mg/0.1 mL (18 mg/3 mL) Pen Injector 02/21/2022 01/26/2023 propranoloL (Inderal) 10 mg Tablet Take 10 mg by mouth daily. 02/22/2022 01/16/2024 BLOOD SUGAR DIAGNOSTIC, DISC MISC by NOT APPLICABLE route. 02/03/2020 01/26/2023 desonide (DESOWEN) 0.05 % Lotion Apply topically. 09/08/2020 01/26/2023 FLUTICASONE PROPION-SALMETEROL INHL Inhale into the lungs. 12/15/2020 01/26/2023 blood sugar diagnostic (GLUCOMETER DEX TEST SENSORS INVT) 02/03/2020 01/26/2023 lancets Misc by NOT APPLICABLE route. 02/03/2020 01/26/2023 azelastine (ASTELIN) 137 mcg (0.1 %) Aerosol, Guinda 1 spray by Nasal route daily. Use in each nostril as directed 01/26/2023 dextroamphetamine-amph etamine (Adderall) 10 mg Tablet Take 20 mg by mouth daily. 01/26/2023 fluticasone propionate (FLONASE) 50 mcg/actuation Guinda, Suspension INSTILL 1 SPRAY INTO EACH NOSTRIL BID 06/01/2020 01/26/2023 clonazePAM (KlonoPIN) 0.5 mg Tablet, Rapid Dissolve Take 0.5 mg by mouth daily as needed. 01/26/2023 loratadine (Claritin) 10 mg Tablet Take 10 mg by mouth daily. 01/26/2023 SUMAtriptan (IMITREX) 50 mg Tablet 0 01/30/2019 01/26/2023 losartan (COZAAR) 25 mg Tablet Taking 1/2 tablet 0 12/06/2018 01/26/2023 documented as of this encounter Plan of [...] Lifestyle Not on track( 3:19 PM EDT) No Leydi, Crystal L, STRATEGY EXECUTION CONSULTANT Note: Try to stay up during the day and be active, will make it more likely you will sleep at night Deep breathing/meditation at night Follow up with sleep lab at [facility] regarding treatment of sleep apnea food [...] 1/4 avocado, 1-2 tbsp dressing 1-2 cups [id number] veggies Write down in a notebook with [...] missael for a rainy day activity Lifestyle Kathy Rodriguez RD Note: Will send list of yoga videos to help find one that is a good fit Keep in mind it might take a little time :-) weigh weekly at home regardless of classes Lifestyle Kathy Rodriguez RD documented as of this encounter Procedures Procedure Name Priority Date/Time Associated Diagnosis Comments HEMOGRAM Routine 01/03/2023 11:47 AM EDT Iron deficiency Leukocytosis, unspecified type DIFFERENTIAL, AUTOMATED Routine 01/03/2023 11:47 AM EDT Iron deficiency Leukocytosis, unspecified type HC IRON BINDING CAPACITY Routine 01/03/2023 11:47 AM EDT Iron deficiency Leukocytosis, unspecified type HC RETIC,AUTO INCLUDES RETHE & IRF Routine 01/03/2023 11:47 AM EDT Iron deficiency Leukocytosis, unspecified type HC CBC,PLT & AUTO DIFF Routine 01/03/2023 11:47 AM EDT Iron deficiency Leukocytosis, unspecified type HC THYROID STIMULATING HORMONE, SERUM Routine 01/03/2023 11:47 AM EDT Hypothyroidism, postsurgical FERRITIN Routine 01/03/2023 11:47 AM EDT Iron deficiency Leukocytosis, unspecified type documented in this encounter Results * (ABNORMAL) Differential, Automated (01/03/2023 11:47 AM EDT) Neutrophil % 65.2 % [facility] Neutrophil Absolute 7.62(H) 1.70 - 6.10 x10(3)/mc L [facility] Lymph % 26.4 % [facility] Lymphocytes Abs 3.1 0.9 - 3.2 x10(3)/mc L [facility] Monocyte % 7.8 % [facility] Monocyte Abs 0.9 0.3 - 0.9 x10(3)/mc L [facility] Eos % 0.0 % [facility] Eosinophils Abs 0.0 0.0 - 0.4 x10(3)/mc L [facility] Basophil % 0.2 % [facility] Baso Absolute 0.0 0.0 - 0.1 x10(3)/mc L [facility] Immature Gran % 0.40 % [facility] Comment: Immature granulocytes(IG's)percentage and absolute count will include metamyelocytes, myelocytes, and promyelocytes. Blood smears from CBCs yielding IG's will be scanned manually for concordance. If this scan disagrees with the automated IG or if promyelocytes are noted, a manual differential will be performed. Immature Gran Absolute 0.05(H) 0.00 - 0.04 x10(3)/mc L [facility] Blood 01/03/2023 11:4 7 AM EDT 01/03/2023 11:52 AM EDT Narrative Resulting Agency Comment Spec In Lab Galen Gallardo MD HEMATOLOGY ORDER LATOSHA Performing Organization Address City/[facility] Co de Phone Number [facility] [place] [address] * (ABNORMAL) Hemogram (01/03/2023 11:47 AM EDT) White Blood Cell 11.7(H) 4.0 - 9.5 x10(3)/mc L [facility] Red Blood Cell 5.65(H) 4.00 - 5.21 x10(6)/mc L [facility] Hemoglobin 15.2 11.7 - 15.5 g/dL [facility] Hematocrit 45.7 35.7 - 45.8 % [facility] Mean Cell Volume 80.9(L) 82.6 - 94.4 fL [facility] Mean Cell Hemoglobin 26.9(L) 27.1 - 32.0 pg [facility] Mean Cell Hemoglobin Concentration 33.3 31.7 - 35.0 g/dL [facility] Platelet 321 145 - 357 x10(3)/mc L [facility] RDW Standard Deviation 39.1 37.0 - 46.0 fL [facility] RDW coefficient of variation 13.4 11.5 - 14.1 % [facility] Mean Platelet Volume 9.5 7.6 - 12.9 fL [facility] NRBC% auto 0.0 % [facility] NRBC Absolute 0.000 0.000 - 0.000 x10(3)/mc L [facility] Blood 01/03/2023 11:4 7 AM EDT 01/03/2023 11:52 AM EDT Narrative Resulting Agency Comment Spec In Lab Galen Gallardo MD HEMATOLOGY ORDER LATOSHA Performing Organization Address City/[facility] Co de Phone Number [facility] [place] [address] * TSH (01/03/2023 11:47 AM EDT) Pathologist [facility] Thyroid Stimulating Hormone 1.21 0.27 - 4.20 mcIU/mL [facility] Comment: Reference Interval (mcIU/mL): Females: ??First Trimester: 0.23-3.88 ??Second Trimester: 0.22-3.90 ??Third Trimester: 0.44-4.66 Blood 01/03/2023 11:4 7 AM EDT 01/03/2023 11:52 AM EDT Narrative Resulting Agency Comment Spec In Lab Mark Anthony Watts MD CHEMISTRY ORDERAB LES Performing Organization Address [facility] Co de Phone Number [facility] [place] [address] * Ferritin (01/03/2023 11:47 AM EDT) Pathologist [facility] Ferritin 129 15 - 150 ng/mL [facility] Comment: Pediatric reference ranges not verified at [facility], interpret with caution. Reference ranges for females greater than 50 years of age approach values for men, i.e., 30-400 ng/mL. Blood 01/03/2023 11:4 7 AM EDT 01/03/2023 11:52 AM EDT Narrative Resulting Agency Comment Spec In Lab Galen Gallardo MD CHEMISTRY ORDERA BLES Performing Organization Address [facility] Co de Phone Number [facility] [place] [address] * Reticulocyte Count (01/03/2023 11:47 AM EDT) Pathologist [facility] Reticulocyte % 1.9 0.7 - 2.5 % [facility] Retic Abs # 0.110 0.020 - 0.110 x10(6)/mcL [facility] Immature Retic% 11.8 0.5 - 13.8 % [facility] Reticulated Hgb 31.0 29.8 - 39.4 pg [facility] Blood 01/03/2023 11:4 7 AM EDT 01/03/2023 11:52 AM EDT Narrative Resulting Agency Comment Spec In Lab Galen Gallardo MD HEMATOLOGY ORDER LATOSHA Performing Organization Address City/[facility] Co de Phone Number [facility] [place] [address] * (ABNORMAL) Iron and TIBC (01/03/2023 11:47 AM EDT) Iron 50 30 - 150 mcg/dL [facility] TIBC 377 250 - 450 mcg/dL [facility] Iron Saturation 13(L) 20 - 50 % [facility] Blood 01/03/2023 11:4 7 AM EDT 01/03/2023 11:52 AM EDT Narrative Resulting Agency Comment Spec In Lab Galen Gallardo MD CHEMISTRY ORDERA BLES Performing Organization Address [facility] Co de Phone Number [facility] [place] [address] documented in this encounter Visit Diagnoses Diagnosis Iron deficiency Iron deficiency anemia, unspecified Leukocytosis, unspecified type Hypothyroidism, postsurgical Postsurgical hypothyroidism documented in this encounter Care Teams Interior Decorator Paperhanging Relationship Specialty Start Date End Date Brittany Muhammad DO [address] [place] [address] PCP - General Family Medicine 01/23/19 documented as of this encounter
--- OUTSIDE RECORDS SUMMARY | 2024-05-07 02:52 | XMS_ITS | Encounter Summary ---
Author Organization [facility] Address [address] [place] [address] Care Team Providers Care Supervisor Home Energy Consultant Name Role Phone Unknown, Provider Primary Care Provider Encounter Details Date Type Department Care Team (Late st Contact Info) Description 02/18/2013 Results Only [facility] [phone] Diallo Huang, MEDICAL RADIATION THERAPIST [address] [place] [id number] Social History Tobacco Use Types Packs/Day Years Used Date Smoking Tobacco: Never Assessed Sex and Gender Information Value Date Recorded Sex Assigned at Not on file Gender Identity Not on file Sexual Orientation Not on file documented as of this encounter Plan of Treatment Not on file documented as of this encounter Procedures Procedure Name Priority Date/Time Associated Diagnosis Comments PAP TEST- RESULT ONLY Routine 02/18/2013 0:00 EDT documented in this encounter Results * PAP TEST- RESULT ONLY (02/18/2013 0:00 EDT) Pathology Report: CYTOPATHOLOGY REPORT Reports generated via electronic interface contain original data; however they are lacking the format of the original report. Caution should be taken when reading/interpreti ng unformatted reports. Name: ? GENIE ESTRADA ? Accession #: ? [id number] : ? 1975 (Age: 37) ??F ?Collect Date: ? 02/18/2013 Location: ? [facility] ? Receive Date: ? 02/20/2013 Provider: ?DIALLO HUANG [employer]UT[employer] CONSULTANT Copy to: ? Specimen/Source: ?Pap Test, Cervix/Endocervix, ThinPrep Imaging System with manual evaluation Last Menstrual Period: ? 01/18/13 ? SPECIMEN ADEQUACY ? Satisfactory for Evaluation - transformation zone component present GENERAL CATEGORIZATION ? Negative for Intraepithelial Lesion or Malignancy ? Document reviewed and electronically signed by: ? Francisco J Sue, CT(ASCP) ? Report Date: ??02/25/2013 14:12 End of Report ENRIQUE MENDOZA 02/18/2013 02/20/2013 Diallo Huang MEDICAL RADIATION THERAPIST PATHOLOGY ORDERABLES ENRIQUE MENDOZA [address] [place] [address] documented in this encounter Visit Diagnoses Not on filedocumented in this encounter Care Teams Supervisor Home Energy Consultant Relationship Specialty Start Date End Date Unknown, Provider, PCP - General 02/20/13 documented as of this encounter
--- OUTSIDE RECORDS SUMMARY | 2024-05-07 02:52 | XMS_ITS | Encounter Summary ---
[place] [address] Care Team Providers Care Jail Keeper Name Role Phone Sabina Brittanyjs Garcia DO Primary Care Provider +1- [phone] Encounter Details Date Type Department Care Team (Latest Contact Info) Description 11/01/2023 12:40 PM EST Laboratory Appointment Lab [address] [id number] Thyroid cancer; Hypothyroidism, postsurgical; Prediabetes; Vitamin D insufficiency; PCOS (polycystic ovarian syndrome) Social History Tobacco Use Types Packs/Day Years [...] night Follow up with sleep lab at [facility] regarding treatment of sleep apnea food [...] 1/4 avocado, 1-2 tbsp dressing 1-2 cups [id number] veggies Write down in a notebook with [...] Procedure Name Priority Date/Time Associated Diagnosis Comments TSH CASCADE Routine 11/01/2023 12:15 PM EST Thyroid cancer Hypothyroidism, postsurgical Prediabetes Vitamin D insufficiency PCOS (polycystic ovarian syndrome) RENAL FUNCTION PANEL Routine 11/01/2023 12:15 PM EST Thyroid cancer Hypothyroidism, postsurgical Prediabetes Vitamin D insufficiency PCOS (polycystic ovarian syndrome) VITAMIN D, 25-HYDROXY Routine 11/01/2023 12:15 PM EST Thyroid cancer Hypothyroidism, postsurgical Prediabetes Vitamin D insufficiency PCOS (polycystic ovarian syndrome) THYROGLOBULIN Routine 11/01/2023 12:15 PM EST Thyroid cancer Hypothyroidism, postsurgical Prediabetes Vitamin D insufficiency PCOS (polycystic ovarian syndrome) T4, FREE Routine 11/01/2023 12:15 PM EST HEMOGLOBIN A1C Routine 11/01/2023 12:15 PM EST Thyroid cancer Hypothyroidism, postsurgical Prediabetes Vitamin D insufficiency PCOS (polycystic ovarian syndrome) documented in this encounter Results * (ABNORMAL) T4, free (11/01/2023 12:15 PM EST) Free T4 2.19(H) 0.93 - 1.70 ng/dL [facility] Comment: Reference Interval (ng/dL): Females: ??First Trimester: 0.97-1.68 ??Second Trimester: 0.77-1.51 ??Third Trimester: 0.77-1.49 Blood 11/01/2023 12:1 5 PM EST 11/01/2023 12:52 PM EST Narrative Resulting Agency Comment Spec In Lab Mark Anthony Watts MD CHEMISTRY ORDERAB LES [facility] [place] [address] * (ABNORMAL) TSH [place] (11/01/2023 12:15 PM EST) Thyroid Stimulating Hormone 0.01(L) 0.27 - 4.20 mcIU/mL [facility] Comment: Reference Interval (mcIU/mL): Females: ??First Trimester: 0.23-3.88 ??Second Trimester: 0.22-3.90 ??Third Trimester: 0.44-4.66 Blood 11/01/2023 12:1 5 PM EST 11/01/2023 12:29 PM EST Narrative Resulting Agency Comment Spec In Lab Mark Anthony Watts MD CHEMISTRY ORDERAB LES [facility] [place] [address] * (ABNORMAL) Thyroglobulin (11/01/2023 12:15 PM EST) Thyroglobulin <0.1(L) 1.3 - 31.8 ng/mL [facility] Comment: INTERPRETIVE INFORMATION: Thyroglobulin, Serum or Plasma Specimens negative for thyroglobulin antibodies (TgAb) are tested for thyroglobulin (Tg) by chemiluminescent immunoassay (MANOHAR) using the Elsy Gurwinder Access DxI method. Specimens with TgAb results above the upper reference limit are tested for Tg by high-performance liquid chromatography-tandem mass spectrometry (LC-MS/MS). Results obtained with different test methods or kits cannot be used interchangeably. Tg results, regardless of concentration, should not be interpreted as absolute evidence for the presence or absence of papillary or follicular thyroid cancer. Tg testing is not recommended for use as a screening procedure to detect the presence of thyroid cancer in the general population. Thyroglob Ab <0.9 0.0 - 4.0 IU/mL [facility] Comment: INTERPRETIVE INFORMATION: Thyroglobulin Antibody A value of 4.0 IU/mL or less indicates a negative result for thyroglobulin antibodies. The Thyroglobulin Antibody assay is being performed using the Elsy Gurwinder Access DxI method. Please note that as 06/28/22 this testing is performed at [facility]. This change is associated with a change in testing method and reference intervals. Values from other methods may not correlate with this method. Please review the results of this test in assocaition with the posted reference intervals. Thyroglobulin by LC-MS/MS Not Applicable 1.3 - 31.8 ng/mL [facility] Comment: INTERPRETIVE INFORMATION: Thyroglobulin by LC-MS/MS, Serum/Plasma Lower limit of detection for Thyroglobulin by LC-MS/MS is 0.5 ng/mL. This test was developed and its performance characteristics determined by [facility]. It has not been cleared or approved by the [place] Food and Drug Administration. This test was performed in a CLIA certified laboratory and is intended for clinical purposes. Performed By: [facility] [address] [place] [id number] Video Arcade Manager: David Easley MD, PhD CLIA Number: [id number] Blood 11/01/2023 12:1 5 PM EST 11/01/2023 2:44 PM EST Narrative Resulting Agency Comment Spec In Lab Mark Anthony Watts MD LAB SEND OUT ORDE RABLES Performing Organization Address City/[facility] Co de Phone Number [facility] [place] [address] * Hemoglobin A1c (11/01/2023 12:15 PM EST) Hemoglobin A1c 5.3 4.3 - 5.6 % [facility] Comment: Reference Range: 4.3 - [...] Mellitus, Diabetes Care 2013; 36: Suppl. 1, X35-69 Estimated Average Glucose 105 mg/dL [facility] Blood 11/01/2023 12:1 5 PM EST 11/01/2023 12:29 PM EST Narrative Resulting Agency Comment Spec In Lab Mark Anthony Watts MD CHEMISTRY ORDERAB LES Performing Organization Address [facility] [place] [address] * Vitamin D, 25-Hydroxy (11/01/2023 12:15 PM EST) Vitamin D Total 25 OH 50 21 - 100 ng/mL [facility] Vit D Interp Sufficient [facility] Blood 11/01/2023 12:1 5 PM EST 11/01/2023 12:29 PM EST Narrative Resulting Agency Comment Spec In Lab Mark Anthony Watts MD CHEMISTRY ORDERAB LES [facility] [place] [address] * (ABNORMAL) Renal Function Panel (11/01/2023 12:15 PM EST) Glucose 164 65 - 199 mg/dL [facility] Comment:Diabetes: >=200 mg/d L plus symptoms Blood Urea Nitrogen 18 8 - 18 mg/dL [facility] Creatinine 1.22(H) 0.70 - 1.20 mg/dL [facility] Sodium 138 135 - 145 mmol/L [facility] Potassium 4.4 3.5 - 5.0 mmol/L [facility] Comment: Please note: ??Patients with WBC >100,000 may have falsely elevated Potassium levels. ??For accurate Potassium quantification in these patients send serum separator tube (gold top) for subsequent determinations. ??Contact the Clinical Chemistry Laboratory if there are any questions. Chloride 102 98 - 107 mmol/L [facility] Carbon Dioxide 23 22 - 31 mmol/L [facility] Anion Gap 13 5 - 15 mmol/L [facility] Calcium 9.9 8.5 - 10.5 mg/dL [facility] Est Glomerular Filtration Rate 54(L) >=60 mL/min/1. 73 m?? [facility] Comment: This patient's estimated GFR was [...] mass and symptoms in addition to eGFR. Albumin 3.8 3.2 - 5.2 g/dL [facility] Phosphorus 2.7 2.5 - 4.5 mg/dL [facility] Blood 11/01/2023 12:1 5 PM EST 11/01/2023 12:29 PM EST Narrative Resulting Agency Comment Spec In Lab Mark Anthony Watts MD CHEMISTRY ORDERAB LES [facility] [place] [address] documented in this encounter Visit Diagnoses Diagnosis Thyroid cancer Malignant neoplasm of thyroid gland Hypothyroidism, postsurgical Postsurgical hypothyroidism Prediabetes Other abnormal glucose Vitamin D insufficiency Unspecified vitamin D deficiency PCOS (polycystic ovarian syndrome) Polycystic ovaries documented in this encounter Care Teams Jail Keeper Relationship Specialty Start Date End Date Brittany Muhammad DO [address] [facility] [address] [address] PCP - General Family Medicine 01/23/19 documented as of this encounter
--- OUTSIDE RECORDS SUMMARY | 2024-05-07 02:52 | XMS_ITS | Encounter Summary ---
[place] [address] Care Team Providers Care Logistics Support Name Role Phone SabinaAsmitajs Garcia DO Primary Care Provider [phone]- [phone] Encounter Details Date Type Department Care Team (Latest Contact Info) Description 01/29/2023 12:00 PM EDT Laboratory Appointment Lab [address] [address] Stage 3a chronic kidney disease Social History Tobacco Use Types Packs/Day Years [...] medical appointments or from getting medications? No 03/3 10/2022 In the past 12 months, has l [...] place to sleep or slept in a long-term (including now)? No 12/29/2022 Sex and Gender [...] Follow up with sleep lab at [facility] regarding treatment of sleep apnea food choices [...] 1/4 avocado, 1-2 tbsp dressing 1-2 cups [id number] [id number] Write down in a notebook with [...] Procedure Name Priority Date/Time Associated Diagnosis Comments HC PARATHYROID HORMONE(PTH INTACT Routine 01/29/2023 12:15 PM EDT Stage 3a chronic kidney disease HEMOGRAM Routine 01/29/2023 12:15 PM EDT Stage 3a chronic kidney disease DIFFERENTIAL, AUTOMATED Routine 01/29/2023 12:15 PM EDT Stage 3a chronic kidney disease HC VENIPUNCTURE Routine 01/29/2023 12:15 PM EDT Stage 3a chronic kidney disease HC CBC,PLT & AUTO DIFF Routine 01/29/2023 12:15 PM EDT Stage 3a chronic kidney disease HC PHOSPHORUS, SERUM Routine 01/29/2023 12:15 PM EDT Stage 3a chronic kidney disease ALBUMIN LEVEL Routine 01/29/2023 12:15 PM EDT Stage 3a chronic kidney disease LIPID PANEL (REFLEX DIRECT LDL) Routine 01/29/2023 12:15 PM EDT Stage 3a chronic kidney disease BASIC METABOLIC PANEL Routine 01/29/2023 12:15 PM EDT Stage 3a chronic kidney disease documented in this encounter Results * (ABNORMAL) Differential, Automated (01/29/2023 12:15 PM EDT) Neutrophil % 71.8 % [facility] Neutrophil Absolute 9.67(H) 1.70 - 6.10 x10(3)/mc L [facility] Lymph % 20.6 % [facility] Lymphocytes Abs 2.8 0.9 - 3.2 x10(3)/mc L [facility] Monocyte % 6.8 % [facility] Monocyte Abs 0.9 0.3 - 0.9 x10(3)/mc L [facility] Eos % 0.1 % [facility] Eosinophils Abs 0.0 0.0 - 0.4 x10(3)/mc L [facility] Basophil % 0.1 % [facility] Baso Absolute 0.0 0.0 - 0.1 x10(3)/mc L [facility] Immature Gran % 0.60 % [facility] Comment: Immature granulocytes(IG's)percentage and absolute count will include metamyelocytes, myelocytes, and promyelocytes. Blood smears from CBCs yielding IG's will be scanned manually for concordance. If this scan disagrees with the automated IG or if promyelocytes are noted, a manual differential will be performed. Immature Gran Absolute 0.08(H) 0.00 - 0.04 x10(3)/mc L [facility] Blood 01/29/2023 12:1 5 PM EDT 01/29/2023 12:29 PM EDT Narrative Resulting Agency Comment Spec In Lab Thalia Guidry MD HEMATOLOGY ORDERABL ES [facility] [place] [address] * (ABNORMAL) Hemogram (01/29/2023 12:15 PM EDT) White Blood Cell 13.5(H) 4.0 - 9.5 x10(3)/mc L [facility] Red Blood Cell 5.43(H) 4.00 - 5.21 x10(6)/mc L [facility] Hemoglobin 14.9 11.7 - 15.5 g/dL [facility] Hematocrit 44.3 35.7 - 45.8 % [facility] Mean Cell Volume 81.6(L) 82.6 - 94.4 fL [facility] Mean Cell Hemoglobin 27.4 27.1 - 32.0 pg [facility] Mean Cell Hemoglobin Concentration 33.6 31.7 - 35.0 g/dL [facility] Platelet 303 145 - 357 x10(3)/mc L [facility] RDW Standard Deviation 39.9 37.0 - 46.0 fL [facility] RDW coefficient of variation 13.6 11.5 - 14.1 % [facility] Mean Platelet Volume 9.5 7.6 - 12.9 fL [facility] NRBC% auto 0.0 % [facility] NRBC Absolute 0.000 0.000 - 0.000 x10(3)/mc L [facility] Blood 01/29/2023 12:1 5 PM EDT 01/29/2023 12:29 PM EDT Narrative Resulting Agency Comment Spec In Lab Thalia Guidry MD HEMATOLOGY ORDERABL ES [facility] [place] [address] * (ABNORMAL) Basic Metabolic Panel (non-fasting) (01/29/2023 12:15 PM EDT) Glucose 153 65 - 199 mg/dL [facility] Comment:Diabetes: >=200 mg/d L plus symptoms Blood Urea Nitrogen 13 8 - 18 mg/dL [facility] Creatinine 1.24(H) 0.70 - 1.20 mg/dL [facility] Sodium 138 135 - 145 mmol/L [facility] Potassium 4.9 3.5 - 5.0 mmol/L [facility] Comment: Please note: ??Patients with WBC >100,000 may have falsely elevated Potassium levels. ??For accurate Potassium quantification in these patients send serum separator tube (gold top) for subsequent determinations. ??Contact the Clinical Chemistry Laboratory if there are any questions. Chloride 102 98 - 107 mmol/L [facility] Carbon Dioxide 24 22 - 31 mmol/L [facility] Anion Gap 12 5 - 15 mmol/L [facility] Calcium 9.4 8.5 - 10.5 mg/dL [facility] Est Glomerular Filtration Rate 53(L) >=60 mL/min/1. 73 m?? [facility] Comment: This patient's estimated GFR [...] Lab Thalia Guidry MD CHEMISTRY ORDERABLE S [facility] [place] [address] * Lipid Panel (Reflex Direct LDL) (01/29/2023 12:15 PM EDT) Cholesterol, Total 148 mg/dL [facility] Comment: Lower Risk: <200 mg/dL Average Risk: 200-239 mg/dL Higher Risk: >pf=398 mg/dL Triglyceride 197 mg/dL [facility] Comment: Average Risk/Lower Risk: <150 mg/dL Borderline High Risk: 150-199 mg/dL High Risk: 200-499 mg/dL Very High Risk: >cg=565 mg/dL HDL Cholesterol 48 mg/dL [facility] Comment: Males: ?? Higher Risk: <40 mg/dL Females: ?? Higher Risk: <50 mg/dL LDL Cholesterol 61 mg/dL [facility] Comment: Lowest Risk: <100 mg/dL Lower Risk: 100-129 mg/dL Borderline High Risk: 130-159 mg/dL High Risk: 160-189 mg/dL Very High Risk: >ze=537 mg/dL Cholesterol/HDL Ratio 3.1 ratio [facility] Lipid Interpretation See Note [facility] Comment: Lipid management should be guided by a patient? s ASCVD risk, goals and preferences. ACC/AHA Guidelines recommend high intensity statin if clinical ASCVD or LDL greater than or equal to 190 mg/dL. http://CO-Value.com/GLG-EJT-Xxutrvlbc Adults aged 40-75 with LDL 70-189 mg/dL should have their 10 year ASCVD risk estimated with the ACC/AHA ASCVD risk pool installer http://tools.acc.org/XMOAJ-Ksfo-Qpxxtudye/ Statin should be discussed if risk greater [...] Lab Thalia Guidry MD CHEMISTRY ORDERABLE S [facility] [place] [address] * PTH (01/29/2023 12:15 PM EDT) Parathyroid Hormone 24 15 - 65 pg/mL [facility] Blood 01/29/2023 12:1 5 PM EDT 01/29/2023 12:29 PM EDT Narrative Resulting Agency Comment Spec In Lab Thalia Guidry MD CHEMISTRY ORDERABLE S Performing Organization Address City/[facility]/ZIP Co de Phone Number [facility] [place] [address] * Albumin Level (01/29/2023 12:15 PM EDT) Albumin 3.9 3.2 - 5.2 g/dL [facility] Blood 01/29/2023 12:1 5 PM EDT 01/29/2023 12:29 PM EDT Narrative Resulting Agency Comment Spec In Lab Thalia Guidry MD CHEMISTRY ORDERABLE S Performing Organization Address City/[facility]/ZIP Co de Phone Number [facility] [place] [address] * (ABNORMAL) Phosphorus (01/29/2023 12:15 PM EDT) Phosphorus 1.7(L) 2.5 - 4.5 mg/dL [facility] Blood 01/29/2023 12:1 5 PM EDT 01/29/2023 12:29 PM EDT Narrative Resulting Agency Comment Spec In Lab Thalia Guidry MD CHEMISTRY ORDERABLE S [facility] [place] [address] * Vitamin D, 25-Hydroxy (01/29/2023 12:15 PM EDT) Vitamin D Total 25 OH 44 21 - 100 ng/mL [facility] Vit D Interp Sufficient [facility] Blood 01/29/2023 12:1 5 PM EDT 01/29/2023 12:29 PM EDT Narrative Resulting Agency Comment Spec In Lab Thalia Guidry MD CHEMISTRY ORDERABLE S [facility] [place] [address] documented in this encounter Visit Diagnoses Diagnosis Stage 3a chronic kidney disease documented in this encounter Care Teams Logistics Support Relationship Specialty Start Date End Date Brittany Muhammad DO [address] [place] [address] PCP - General Family Medicine 01/23/19 documented as of this encounter
--- OUTSIDE RECORDS SUMMARY | 2024-05-07 02:52 | XMS_ITS | Encounter Summary ---
Author Organization [facility] Address [facility] [place] [address] Care Team Providers Care Pad Machine Operator Name Role Phone Sabina Brittanyjs Garcia DO Primary Care Provider [phone]- [phone] Encounter Details Date Type Department Care Team (Late st Contact Info) Description 11/01/2023 1:30 PM EST Office Visit [place] [address] Mark Anthony Watts MD [facility] [place] [address] Thyroid cancer; Hypothyroidism, postsurgical; Prediabetes; Vitamin D [...] 11/01/2023 1:17 PM ES T Respiratory Rate - - Oxygen Saturation 98% 11/01/2023 1:17 PM EST Inhaled Oxygen Concentration - - Weight 89.9 kg (198 lb 3.2 oz) 11/01/2023 1:17 P M EST Height 160 cm (5' 3) 11/01/2023 1:17 PM EST Body Mass Index 35.11 11/01/2023 1:17 PM EST documented in this encounter Patient Instructions * Patient Instructions* Mark Anthony Watts MD - 11/01/2023 1:30 PM EST Plan: - No need for excision biopsy or repeat FNA unless this central neck LN (very superficial) is significantly enlarging in the future. - will let her know Tg results soon. - Checked Tg & TSH again as above. - To taper levothyroxine 175 mcg daily. Then recheck lab for TSH in 2-3 mo (standing lab order) at [facility] lab. - Adjust T4 dose PRN. Goal TSH around the low end of lower limit of normal range 0.1-2.0 range. - RTC- 1 year with labs for TSH and Tg, and annual neck ultrasound as needed for thyroid ca surveillance. # PCOS and prediabetes (A1c 6.3-> 6.0% on 06/18/20-> 5.9% on 02/23/21-> 6.0% 10/16/22-> 5.3% today) - To ozempic 0.5 mg sc weekly for now (unable to tolerate 1 mg sc weekly due to GI side effect) - already reduced metforminER 500 mg/day by PCP for her insulin resistance (d/t rising Cr from 1.23to 1.36 on 06/18/20 => Cr 1.22 on 10/16/22 and 1.22 today 11/01/23) - cont spironolactone 50 mg bid (unable to increase the dose due to Cr and eGFR) - cont BCPs for bone health and some night sweats at this age of 48 y.o. with some night sweats likely in eliazar-menopause as well. - already had lab for A1c and BMP as above. - to FU with PCP for A1c & Cr further. Orders Placed This Encounter Procedures TSH Carter Thyroglobulin Hemoglobin A1c Vitamin D, 25-Hydroxy Renal Function Panel TSH Carter RTC 12 months and will recheck lab and neck US at next visit. Mark Anthony Watts MD, PhD, FACE, FACP documented in this encounter Progress Notes * Mark Anthony Watts MD - 11/01/2023 1:30 PM EST THYROID / NECK ULTRASOUND: Date: 11/01/23 Indication: Thyroid cancer Comparison: 03/18/20, 03/20/22, 10/16/22 *TSH 0.29 (03/20/22) at outside lab with Tg <0.2 Lab Results Component Value Date/Time TSH 0.40 03/18/2021 03:13 PM TSH 56.60 (H) 03/02/2020 12:59 PM TSH 1.95 07/11/2019 01:51 PM TSH 0.08 (L) 05/22/2019 12:17 PM TSH 2.85 01/23/2019 01:11 PM THYROGLB <0.2 03/18/2021 03:13 PM THYROGLB 0.6 03/02/2020 12:59 PM THYROGLB 0.6 07/11/2019 01:51 PM THGAB <20.0 03/18/2021 03:13 PM THGAB <20.0 03/02/2020 12:59 PM THGAB <20.0 07/11/2019 01:51 PM Real time images of the neck were obtained using a [employer] Focus 400 US machine and an HFL38/15-6 broadband linear array transducer. All measurements are given as Longitudinal x Anterior-Posterior (A-P) x Transverse Right Lobe: The right lobe is absent Left Lobe: The left lobe is absent Central neck: There is a superficial small hypoechoic lesion in anterior neck off midline to the left with normalhilum (Level -likely a Delphian LN in central compartment) which measures 0.8x0.4x0.6 cm cm (was0.9x0.4x0.6 cm on 10/16/22; 0.8x0.4x0.6 cm in 2021, 0.8x0.4x0.6 cm on 03/18/20 and 0.8x0.5x0.7 cm on 10/05/20 at [facility]). Lateral neck: Examination of bilateral levels II to V showed a few lateral neck lymph nodes on the right neck, the larger of which measures 1.1x0.5x0.8 cm (was 0.96x0.3x0.8 cm on 10/16/22). The other LN was very thin and small with benign appearance. Impression: Post total thyroidectomy There is a superficial pre-tracheal central LN of 0.8-0.9 cm seen on US with normal hilum and no changes in size over the past few years. (*previously she had negative FNA for Tg wash-out on 03/18/20 for this small central LN to r/o LN mets in the setting of PTC micro-carcinoma s/p surgery since 04/07/19 with a period of hypothyroid during late 2018 until March 2020). Monitor TSH and Tg today Mark Anthony Watts MD, PhD, FACE, FACP Endocrine Clinic Name: Genie Estrada : 1975 PCP: Brittany Muhammad DO Provided by: Mark Anthony Watts MD, PhD, FACE, FACP Date: 11/01/23 Reason for visit: Endocrine visit: Thyroid cancer, PCOS and prediabetes (A1c 6% on 06/18/20). Pt used to see Dr. Khanna and me on 01/24/20 and was transferred under my care directly since 06/22/20. She still has residual Tg at a low level of 0.5-0.6 and US at [facility] 10/05/20 showed a midline hypoechoic lesion of 0.8x0.5x0.7 cm => 0.8x0.4x0.6 cm at our visit on 03/18/21 when we did FNA washout andit was negative for Tg. Today US (03/20/22) showed exactly the same size 0.8x0.4x0.6 cm after 1-1.5 year reassuring but will cont to monitor and repeat FNA if it's enlarging or rising Tg. HPI: Genie Estrada is a 48 y.o. female who presents for follow-up of thyroid cancer diagnosed / treated with total thyroidectomy on 04/07/19 (no SARAH) with residual Tg 0.6 after the surgery - stable Tg 0.6 in Jul 2019 and 03/06/20 and then undetectable <0.2 on 03/18/21 at our lab. Thyroid cancer summary 01/23/19 Palpable and enlarging left thyroid cystic nodule noted and confirmed by US (6.5x2.3x4.5 cmmixed cyst occupying the whole left lobe, and also 1.9 cm isoechoic nodule in the right lobe) FNA of the left mixed cyst and drainage of 55 ml cystic fluid showed atypia (AUS) Molecular testing was inconclusive. 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 Liu with better TSH 1.95 in 10/24/19: US neg 03/02/20: TSH 56.6 ; Tg 0.6 stable, FT4 1.35 => increased LT4 to 137+50 (187 mcg) daily based on her weight. 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 Tg<0.2 US showed a midline hypoechoic lesion of 0.8x0.4x0.6 cm (central LN without hilum) => FNA for Tgwash-out = negatice & she may need an excisional biopsy or repeat FNA if it's growing in size 03/20/22: TSH 0.29, Tg <0.2 10/16/22: TSH 0.09, Tg 0.1. Holter for 14 days and echo in early 2021 were all normal => to taperLT4 200 mcg and 0.5 tab on Sunday11/01/23: TSH 0.01, Tg is pending Patient has not noted any changes in the neck, could not feel the midline lump by herself, and is feeling well without any specific complaints. [facility] and has lost wt from 257 to 242-247 lbs and now 198 lbs on GLP1 weekly pen since March 2023. Symptoms of thyroid hormone excess / deficiency: Heat intolerance: No Cold intolerance: No Diarrhea: No Constipation: No Weight loss / gain: Yes, down another 44 lbs (total wt loss from 242 lbs in Oct 2022 to 198 lbs 11/01/23 on low ozempic pen 0.5 mg sc weekly) Anxiety: No Jitteriness: No Temors: No Palpitations: No Lab Results Component Value Date/Time TSH 1.21 01/03/2023 11:47 AM TSH 0.09 (L) 10/16/2022 02:27 PM TSH 0.29 03/20/2022 11:33 AM TSH 0.40 03/18/2021 03:13 PM TSH 56.60 (H) 03/02/2020 12:59 PM TSH 1.95 07/11/2019 01:51 PM TSH 0.08 (L) 05/22/2019 12:17 PM TSH 2.85 01/23/2019 01:11 PM THYROGLB 0.1 (L) 10/16/2022 02:27 PM THYROGLB <0.2 03/20/2022 11:33 AM THYROGLB <0.2 03/18/2021 03:13 PM THYROGLB 0.6 03/02/2020 12:59 PM THYROGLB 0.6 07/11/2019 01:51 PM THGAB <0.9 10/16/2022 02:27 PM THGAB <20.0 03/20/2022 11:33 AM THGAB <20.0 03/18/2021 03:13 PM THGAB <20.0 03/02/2020 12:59 PM THGAB <20.0 07/11/2019 01:51 PM ---Pathologic Diagnosis--- Date 04/07/19 A - Left lobe of thyroid, hemithyroidectomy - - Nodular adenomatous hyperplasia, two nodules; the largest (6-cm) shows central cystic degenerative change and necrosis. 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 - One benign node (0/1). Specimen Procedure: Total thyroidectomy Tumor Histologic Type: Papillary carcinoma, classic (usual, conventional) Tumor Size: 0.17 Centimeters (cm) Tumor Site: Right lobe Tumor Focality: Unifocal Tumor Extent Extrathyroidal Extension: Not identified Accessory Findings Angioinvasion (vascular invasion): Not identified Lymphatic Invasion: Not identified Margins Margins: Uninvolved by carcinoma Lymph Nodes Number of Lymph Nodes Involved: 0 Number of Lymph Nodes Examined: 1 Twila Levels: Level - pretracheal, paratracheal and prelaryngeal / Delphian, perithyroidal (central compartment dissection) Pathologic Stage Classification (pTNM, AJCC 8th Edition) Primary Tumor (pT): pT1a Regional Lymph Nodes (pN): pN0 Additional Findings Additional Pathologic Findings: Adenomatoid nodule(s) or nodular follicular disease Review of Systems See HPI. All other systems negative. 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 Autoimmune disease M35.9 Bipolar II disorder, moderate, depressed, with anxious distress F31.81 Eczema L30.9 Hypertension I10 Vitamin D deficiency E55.9 CKD (chronic kidney disease), stage III N18.30 Elevated serum creatinine R79.89 Hypophosphatemia E83.39 Current Outpatient Medications on File Prior to Visit Medication Sig Dispense Refill lurasidone (Latuda) 60 mg tablet TAKE ONE TABLET BY MOUTH EVERY EVENING; MUST ADMINISTER WITH FOOD (AT LEAST 350 CALORIES) Ozempic 1 mg/dose (4 mg/3 mL) Pen Injector INJECT 1MG SUBCUTANEOUSLY EVERY WEEK; INCREASE TO START APPROX 05/12/23 THEN WEEKLY cholecalciferol, Vitamin D3, 25 mcg (1,000 unit) Capsule 2,000 Units. SUMAtriptan (IMITREX) 20 mg/actuation Lengby, Non-Aerosol 1 spray by Nasal route as needed for Migraine. cyanocobalamin, Vitamin B-12, (Vitamin B-12) 100 mcg tablet Take 100 mcg by mouth daily. Magnesium 200 mg tablet Take 200 mg by mouth daily. Jornay PM 40 mg ER sprinkle capsule Take 40 mg by mouth nightly. levothyroxine (Synthroid) 200 mcg Tablet 1 tab Sun-Sun and 0.5 tab on Sundays. 90 tablet 3 cetirizine (ZyrTEC) 10 mg Tablet Take 10 mg by mouth daily. guanFACINE (Tenex) 1 mg Tablet Take 1 mg by mouth nightly. metFORMIN XR (Glucophage XR) 500 mg Tablet Sustained Release 24 hr Take 2 tablets by mouth 2 times daily (with meals). (Patient taking differently: Take 750 mg by mouth daily.) 120 tablet 0 lansoprazole (PREVACID) 30 mg Capsule, Delayed Release(E.C.) Take 30 mg by mouth daily. Ventolin HFA 90 mcg/actuation HFA Aerosol Inhaler Inhale 90 mcg into the lungs as needed. spironolactone (ALDACTONE) 50 mg Tablet Take 1 tablet by mouth daily. (Patient taking differently: Take 50 mg by mouth 2 times daily.) 90 tablet 3 lamoTRIgine (LAMICTAL) 150 mg Tablet TK 1 T PO D 2 norgestimate-ethinyl estradiol (TRI SPRINTEC) 0.18/0.215/0.25 mg-35 mcg (28) Tablet Take 1 tablet by mouth daily. 84 tablet 3 ziprasidone (Geodon) 20 mg capsule TAKE ONE CAPSULE BY MOUTH TWICE A DAY WITH FOOD propranoloL (Inderal) 10 mg Tablet Take 10 mg by mouth daily. No current facility-administered medications on file prior to visit. Allergy: Allergies Allergen Reactions Budesonide-Formoterol Other reaction(s): severe muscle spasms Liraglutide Other reaction(s): Nausea Lisinopril Other reaction(s): cough Bupropion Mood swings Flexeril [Cyclobenzaprine] Anger Family History: Family History Problem Relation Age of Onset Cancer Maternal Grandmother Cancer Maternal Grandfather Coronary Artery Disease Maternal Grandmother Diabetes Maternal Grandmother Diabetes Paternal Aunt Heart Disease Maternal Grandmother High Blood Pressure Paternal Grandfather High Cholesterol Paternal Grandfather Social History: Social History Tobacco Use Smoking status: Former Packs/day: 1.00 Years: 5.00 Additional pack years: 0.00 Total pack years: 5.00 Types: Cigarettes Quit date: 10/01/2005 Years since quittin.0 Smokeless tobacco: Never Tobacco comments: quit 2006 Vaping Use Vaping Use: Never used Substance Use Topics Alcohol use: Yes Comment: I drink only 3-4 times throughout the year Drug use: Yes Types: LSD/Ecstacy Physical Exam BP 127/84 (BP Location (NBP): Right arm) Pulse 72 Temp 36.8 ??C (98.3 ??F) (Temporal) Ht 160 cm (5' 3) Wt 89.9 kg (198 lb 3.2 oz) SpO2 98% BMI 35.11 kg/m?? GENERAL: A+O x 3; Comfortable; Mood and affect appropriate. EYES: Sclera clear, no conjunctival injection; No stare, lid lag or proptosis. NECK: No mass noticable. SKIN: Skin is normal in appearance. No rashes noted. NEURO: Cranial nerves grossly intact; non-focal; No tremor EXT: Gait and station normal; No thyroid acropachy or pretibial myedema. Lab after thyroidectomy since 04/07/19 Results for GENIE ESTRADA ( ) Ref. Range 05/22/2019 12:17 07/11/2019 13:51 11/19/2019 00:00 03/02/2020 12:59 06/18/2020 00:00 Sodium Unknown 140 133 (L) 137 Potassium Unknown 4.7 4.0 4.5 Chloride Unknown 104 97 (L) 101 CO2 Unknown 26 22 22 Anion Gap Unknown 10 14 14 BUN Unknown 18 16 17 Creatinine Range: 0.55 - 1.02 1.15 (UF) 1.23 (H) 1.36 (H) eGFR Unknown 50.8 (L) 53 (L) 41.68 (L) eGFR >=60 mL/min/1.73 61 Calcium Unknown 9.4 9.8 9.6 Glucose Unknown 141 (UF) Glucose Lvl 74 - 106 168 138 (H) Hemoglobin A1C Latest Ref Range: <5.7 6.0 (H) Thyroglobulin <=54.9 ng/mL 0.6 0.6 Thyroglob Ab Range: 0.0 - 40.0 IU/mL <20.0 <20.0 Free T4 Range: 0.93 - 1.70 ng/dL 1.62 1.35 TSH 0.27 - 4.20 mcIU/mL 0.08 (L) 1.95 56.60 (H) Outside lab on 02/23/21 were ok with better A1c 5.9%, TSH 1.1, normal CBC and CMP. Recent Results (from the past 24 hour(s)) Renal Function Panel Result Value Ref Range Glucose Lvl 164 65 - 199 mg/dL BUN 18 8 - 18 mg/dL Creatinine 1.22 (H) 0.70 - 1.20 mg/dL Sodium 138 135 - 145 mmol/L Potassium 4.4 3.5 - 5.0 mmol/L Chloride 102 98 - 107 mmol/L CO2 23 22 - 31 mmol/L Anion Gap 13 5 - 15 mmol/L Calcium 9.9 8.5 - 10.5 mg/dL Estimated GFR 54 (L) >=60 mL/min/1.73 m?? Albumin 3.8 3.2 - 5.2 g/dL Phosphorus 2.7 2.5 - 4.5 mg/dL Hemoglobin A1c Result Value Ref Range Hemoglobin A1C 5.3 4.3 - 5.6 % Est Avg Gluc 105 mg/dL Addendum 01/16/24: Outside lab showed TSH 0.01 => to taper levothyroxine from 175 to 150 mcg daily. 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 TSH level is too suppressed <0.1 (Target of 0.1-2.0 range), so we can taper LT4 from 200 mcg Sun-Sun and 0.5 tab on Sundays => down to 175 mcg daily (11/01/23). To recheck lab for TSH q 3 mo standing order was placed in [facility] and [facility] lab. US studies showed a persistent but stable small pre-tracheal/Dephian LN in anterior neck of 0.8 cm and recent FNA was negative for Tg wash-out on 03/18/21. Plan: - No need for excision biopsy or repeat FNA unless this central neck LN (very superficial) is significantly enlarging in the future. - will let her know Tg results soon. - Checked Tg & TSH again as above. - To taper levothyroxine 175 mcg daily. Then recheck lab for TSH in 2-3 mo (standing lab order) at [facility] lab. Addendum 01/16/24: Outside lab showed TSH 0.01 => to taper levothyroxine from 175 to 150 mcg daily. MARK ANTHONY WATTS MD - Adjust T4 dose PRN. Goal TSH around the low end of lower limit of normal range 0.1-2.0 range. - RTC- 1 year with labs for TSH and Tg, and annual neck ultrasound as needed for thyroid ca surveillance. # PCOS and prediabetes (A1c 6.3-> 6.0% on 06/18/20-> 5.9% on 02/23/21-> 6.0% 10/16/22-> 5.3% today) - To ozempic 0.5 mg sc weekly for now (unable to tolerate 1 mg sc weekly due to GI side effect) - already reduced metforminER 500 mg/day by PCP for her insulin resistance (d/t rising Cr from 1.23to 1.36 on 06/18/20 => Cr 1.22 on 10/16/22 and 1.22 today 11/01/23) - cont spironolactone 50 mg bid (unable to increase the dose due to Cr and eGFR) - cont BCPs for bone health and some night sweats at this age of 48 y.o. with some night sweats likely in eliazar-menopause as well. - already had lab for A1c and BMP as above. - to FU with PCP for A1c & Cr further. Orders Placed This Encounter Procedures TSH Carter Thyroglobulin Hemoglobin A1c Vitamin D, 25-Hydroxy Renal Function Panel TSH Carter RTC 12 months and will recheck lab and neck US in 1-2 years. Mark Anthony Watts MD, PhD, FACE, FACP CC: Brittany Muhammad DO documented in this encounter Miscellaneous Notes * Addendum Note - Mark Anthony Watts MD - 11/01/2023 1:30 PM ESTAddended by: MARK ANTHONY WATTS on: 01/16/2024 02:12 PM Modules accepted: Orders documented in this encounter Plan of Treatment Scheduled Orders Name Type Priority Associated Diagnoses Orde r Schedule TSH Carter Lab Routine Hypothyroidism, postsurgical Every 8 Weeks for 6 Occurrences starting 11/01/2023 until 11/01/2024 documented as of this encounter Goals Goal Patient Goal Type Associated Problems Recent Progress Patient-Stated? Author medication Lifestyle On track( 021 11:55 AM EDT) Crystal Wells APRN Note: Continue metformin 1000mg in the evening with food movement Lifestyle On track( 021 11:55 AM EDT) Crystal Wells APRN Note: [...] body busy sleep Lifestyle Not on track( 021 3:19 PM EDT) Crystal Wells APRN Note: Try to stay up during the day and be active, will make it more likely you will sleep at night Deep breathing/meditation at night Follow up with sleep lab at [facility] regarding treatment of sleep apnea food choices / tracking goals Lifestyle On track( 020 11:17 AM EST) No Kathy Perez, VERO Note: Direct substitution to meat: Tofu and [...] 1/4 avocado, 1-2 tbsp dressing 1-2 cups [id number] veggies Write down in a notebook with [...] as of this encounter Results * (ABNORMAL) Renal Function Panel (11/01/2023 12:15 PM EST) Glucose 164 65 - 199 mg/dL [facility] Comment:Diabetes: >=200 mg/d L plus symptoms Blood Urea Nitrogen 18 8 - 18 mg/dL [facility] Creatinine 1.22(H) 0.70 - 1.20 mg/dL [facility] Sodium 138 135 - 145 mmol/L [facility] Potassium 4.4 3.5 - 5.0 mmol/L [facility] Comment: Please note: ??Patients with WBC >100,000 may have falsely elevated Potassium levels. ??For accurate Potassium quantification in these patients send serum separator tube (gold top) for subsequent determinations. ??Contact the Clinical Chemistry Laboratory if there are any questions. Chloride 102 98 - 107 mmol/L [facility] Carbon Dioxide 23 22 - 31 mmol/L [facility] Anion Gap 13 5 - 15 mmol/L [facility] Calcium 9.9 8.5 - 10.5 mg/dL [facility] Est Glomerular Filtration Rate 54(L) >=60 mL/min/1. 73 m?? [facility] Comment: This patient's estimated GFR [...] eGFR. Albumin 3.8 3.2 - 5.2 g/dL [facility] Phosphorus 2.7 2.5 - 4.5 mg/dL [facility] Blood 11/01/2023 12:1 5 PM EST 11/01/2023 12:29 PM EST Narrative Resulting Agency Comment Spec In Lab Mark Anthony Watts MD CHEMISTRY ORDERAB LES Performing Organization Address City/[facility]/ZIP Co de Phone Number [facility] [place] [place] [address] * Vitamin D, 25-Hydroxy (11/01/2023 12:15 PM EST) Vitamin D Total 25 OH 50 21 - 100 ng/mL [facility] Vit D Interp Sufficient [facility] Blood 11/01/2023 12:1 5 PM EST 11/01/2023 12:29 PM EST Narrative Resulting Agency Comment Spec In Lab Mark Anthony Watts MD CHEMISTRY ORDERAB LES Performing Organization Address City/[facility]/ZIP Co de Phone Number [facility] [place] [address] * Hemoglobin A1c (11/01/2023 12:15 PM EST) Hemoglobin A1c 5.3 4.3 - 5.6 % [facility] Comment: Reference Range: 4.3 - 5.6% [...] Mellitus, Diabetes Care 2013; 36: Suppl. 1, O97-08 Estimated Average Glucose 105 mg/dL [facility] Blood 11/01/2023 12:1 5 PM EST 11/01/2023 12:29 PM EST Narrative Resulting Agency Comment Spec In Lab Mark Anthony Watts MD CHEMISTRY ORDERAB LES [facility] [place] [place] [address] * (ABNORMAL) Thyroglobulin (11/01/2023 12:15 PM EST) Thyroglobulin <0.1(L) 1.3 - 31.8 ng/mL [facility] Comment: INTERPRETIVE INFORMATION: Thyroglobulin, Serum or Plasma Specimens negative for thyroglobulin antibodies (TgAb) are tested for thyroglobulin (Tg) by chemiluminescent immunoassay (MANOHAR) using the Elsy Hamilton Access DxI method. Specimens with TgAb results [...] Thyroglob Ab <0.9 0.0 - 4.0 IU/mL [facility] Comment: INTERPRETIVE INFORMATION: Thyroglobulin Antibody A value of 4.0 IU/mL or less indicates a negative result for thyroglobulin antibodies. The Thyroglobulin Antibody assay is being performed using the Elsy Hamilton Access DxI method. Please note that as 06/28/22 this testing is performed at [facility]. This change is associated with a change in testing method and reference intervals. Values from other methods may not correlate with this method. Please review the results of this test in assocaition with the posted reference intervals. Thyroglobulin by LC-MS/MS Not Applicable 1.3 - 31.8 ng/mL [facility] Comment: INTERPRETIVE INFORMATION: Thyroglobulin by LC-MS/MS, Serum/Plasma Lower limit of detection for Thyroglobulin by LC-MS/MS is 0.5 ng/mL. This test was developed and its performance characteristics determined by [facility]. It has not been cleared or approved by the [place] Food and Drug Administration. This test was performed in a CLIA certified laboratory and is intended for clinical purposes. Performed By: [facility] [address] [place] [id number] [employer] Guard: David Easley MD, PhD CLIA Number: [id number] Blood 11/01/2023 12:1 5 PM EST 11/01/2023 2:44 PM EST Narrative Resulting Agency Comment Spec In Lab Mark Anthony Watts MD LAB SEND OUT ORDE RABLES Performing Organization Address [facility] Co de Phone Number [facility] [place] [address] * (ABNORMAL) TSH Carter (11/01/2023 12:15 PM EST) Thyroid Stimulating Hormone 0.01(L) 0.27 - 4.20 mcIU/mL [facility] Comment: Reference Interval (mcIU/mL): Females: ??First Trimester: 0.23-3.88 ??Second Trimester: 0.22-3.90 ??Third Trimester: 0.44-4.66 Blood 11/01/2023 12:1 5 PM EST 11/01/2023 12:29 PM EST Narrative Resulting Agency Comment Spec In Lab Mark Anthony Watts MD CHEMISTRY ORDERAB LES Performing Organization Address [facility] Co de Phone Number [facility] [place] [address] documented in this encounter Visit Diagnoses Diagnosis Thyroid cancer Malignant neoplasm of thyroid gland Hypothyroidism, postsurgical Postsurgical hypothyroidism Prediabetes Other abnormal glucose Vitamin D insufficiency Unspecified vitamin D deficiency PCOS (polycystic ovarian syndrome) Polycystic ovaries documented in this encounter Care Teams Pad Machine Operator Relationship Specialty Start Date End Date Brittany Muhammad DO [address] [place] [address] PCP - General Family Medicine 01/23/19 documented as of this encounter
--- OUTSIDE RECORDS SUMMARY | 2024-05-07 02:52 | XMS_ITS | Referral Summary ---
Author Organization [facility] Address [address] [place] [address] Care Team Providers Care Casino Cage Supervisor Name Role Phone Unknown, Provider Primary Care Provider Social History Tobacco Use Types Packs/Day Years Used Date Smoking Tobacco: Never Assessed Interpersonal Safety Answer Date Record ed Physically Hurt Never 2020 Verbally Threaten Not on file 2020 Sex and Gender Information Value Date Recorded Sex Assigned at Not on file Gender Identity Not on file Sexual Orientation Not on file Plan of Treatment Not on file Care Teams Casino Cage Supervisor Relationship Specialty Start Date End Date Unknown, Provider, PCP - General 02/20/13
--- OUTSIDE RECORDS SUMMARY | 2024-05-07 02:52 | XMS_ITS | Encounter Summary ---
Author Organization [facility] Address [address] [place] [address] Care Team Providers Care Test Designer Name Role Phone Unknown, Provider Primary Care Provider Encounter Details Date Type Department Care Team (Late st Contact Info) Description 09/05/2022 Lab Requisition [facility] Pathology & Laboratory Medicine - [facility] [address] [place] [address] Renetta Barajas PA-C [address] [place], [place] [id number] Encounter for other general examination Social History [...] Date/Time Associated Diagnosis Comments SURGICAL PATHOLOGY Today 09/05/2022 11 :30 EST Encounter for other general examination documented in this encounter Results * SURGICAL PATHOLOGY (09/05/2022 11:30 EST) Note to Patient The following pathology results have been interpreted by your pathologist and may be available to you before your health provider has had the opportunity to review them. Please allow time for your provider to receive these results and explore management options, if applicable. 09/15/2022 17:00 EST [facility] Final Diagnosis A. SOFT TISSUE OF AXILLA, LEFT, EXCISION: - Lipoma with focal reactive/reparati ve changes. 09/15/2022 17:00 [facility] Attestation There was significant resident/fellow involvement in the diagnostic evaluation of this case. By the signature below, the attending physician certifies that they have personally conducted a gross and/or microscopic examination of the described specimens and rendered or confirmed the above diagnosis. 09/15/2022 17:00 [facility] at 1700 Clinical History Skin cyst/lipoma 09/15/2022 17:00 [facility] Gross Description A. Received in formalin labelled with proper patient identification (initials S, H) and left axillary is an aggregate of fibrofatty tissue (3.1 x 2.8 x 1.2 cm). There is no grossly observable capsule. The specimen is entirely submitted in blocks A1-A4. Ilsa Carl MD 09/06/2022 13:01 09/15/2022 17:00 [facility] Resident/Rambo w: Ilsa Carl MD 09/15/2022 17:00 [facility] Performing Lab [facility] 09/15/2022 17:00 [facility] Scanned Images 09/15/2022 17:00 [facility] Tissue SOFT TISSUE / Unknown 09/05/2022 11:30 EST 09/05/2022 19:39 EST Renetta Barajas PA-C PATHOLOGY ORDERABL ES [facility] [address] [place] [address] documented in this encounter Visit Diagnoses Diagnosis Encounter for other general examination documented in this encounter Care Teams Test Designer Relationship Specialty Start Date End Date Unknown, Provider, PCP - General 02/20/13 documented as of this encounter
--- OUTSIDE RECORDS SUMMARY | 2024-05-07 02:52 | XMS_ITS | Encounter Summary ---
Author Organization [facility] Address [facility] [place] [address] Care Team Providers Care Ordnance Mechanic Name Role Phone SabinaBrittany Jose DO Primary Care Provider +1- [phone] Encounter Details Date Type Department Care Team (Latest Contact Info) Description 10/30/2023 Travel Social History Tobacco Use Types Packs/Day [...] place to sleep or slept in a fdc (including now)? No 12/29/2022 Sex and Gender [...] Lifestyle Not on track( 3:19 PM EDT) Crysatl Wells APRN Note: Try to stay up during the day and be active, will make it more likely you will sleep at night Deep breathing/meditation at night Follow up with sleep lab at [facility] regarding treatment of sleep apnea food [...] 1/4 avocado, 1-2 tbsp dressing 1-2 cups [id number] veggies Write down in a notebook with [...] on filedocumented in this encounter Care Teams Ordnance Mechanic Relationship Specialty Start Date End Date Brittany Muhammad DO [address] [place] [address] PCP - General Family Medicine 01/23/19 documented as of this encounter
--- OUTSIDE RECORDS SUMMARY | 2024-05-07 02:53 | XMS_ITS | Encounter Summary ---
Author Organization [facility] [place] [address] Care Team Providers Care Band Saw Filer Name Role Phone Sabina Brittanyjs Garcia DO Primary Care Provider +1- [phone] Encounter Details Date Type Department Care Team (Late st Contact Info) Description 11/18/2020 5:30 PM EST Notes Only Weight and Wellness at [address] [phone] Arrived Social History Tobacco Use Types Packs/Day Years Used Date Smoking Tobacco: Former Cigarettes 1 5 0 10/01/2000 - 10/01/2005 Smokeless Tobacco: Never Comments:quit 2005 Alcohol Use Standard Drinks/Week Comments Yes 0 (1 standard drink = 0.6 oz pure alcohol) I drink only 3-4 times throughout the year Sex and Gender Information Value Date Recorded Sex Assigned at Female 02/16/2021 7:51 PM EDT Gender Identity Female 02/16/2021 7:51 PM EDT Sexual Orientation Straight 02/16/2021 7: 51 PM EDT documented as of this encounter Last Filed Vital Signs Vital Sign Reading Time Taken Comments Blood Pressure - - Pulse - - Temperature - - Respiratory Rate - - Oxygen Saturation - - Inhaled Oxygen Concentration - - Weight 106.9 kg (235 lb 11.2 oz) 11/18/2020 5:00 PM EST Height 157.5 cm (5' 2.01) 11/18/2020 5:00 PM ES T Body Mass Index 43.1 11/18/2020 5:00 PM EST documented in this encounter Plan of Treatment [...] night Follow up with sleep lab at [facility] regarding treatment of sleep apnea food choices [...] 1/4 avocado, 1-2 tbsp dressing 1-2 cups [id number] veggies Write down in a notebook with [...] week finding a motivation missael for a y day activity Lifestyle No Kathy Perez RD Note: Will send list of yoga videos to help find one that is a good fit Keep in mind it might take a little time :-) weigh weekly at home regardless of classes Lifestyle No Kathy Perez RD documented as of this encounter Visit Diagnoses Not on filedocumented in this encounter Care Teams Band Saw Filer Relationship Specialty Start Date End Date Brittany Muhammad DO [address] [place] [address] PCP - General Family Medicine 01/23/19 documented as of this encounter
--- OUTSIDE RECORDS SUMMARY | 2024-05-07 02:53 | XMS_ITS | Encounter Summary ---
Author Organization [facility] Address [facility] [place] [address] Care Team Providers Care Farmworker Machine Name Role Phone Brittany Muhammad DO Primary Care Provider +1- [phone] Reason for Visit * Consultation (Routine) - Closed Specialty Diagnoses / Procedures Referred By Cash reese Referred To Contact Hematology and Oncology Diagnoses Hypothyroidism, unspecified Malignant neoplasm of thyroid gland Polycystic ovarian syndrome Elevated white blood cell count, unspecified Brittany Muhammad DO [address] [place] [address] [facility] [address] [place] [id number] Referral ID Status Reason Start Date Expiration Date V isits Requested Visits Authorized [id number] Closed Consult, [facility] PCP Updated and/or Approved 12/21/2020 12/21/2021 6 6 Encounter Details Date Type Department Care Team (Late st Contact Info) Description 02/23/2021 3:00 PM EDT Office Visit Hematology/Oncology at [address] [phone] [facility] DR HEMATOLOGY [place] [address] Leukocytosis, unspecified type Social History Tobacco Use [...] Sign Reading Time Taken Comments Blood Pressure 122/80 02/23/2021 3:00 PM EDT Pulse 84 02/23/2021 3:00 PM EDT Temperature 36.4 ??C (97.5 ??F) 02/23/2021 3:00 PM ED T Respiratory Rate 16 02/23/2021 3:00 PM EDT Oxygen Saturation 98% 02/23/2021 3:00 PM EDT Inhaled Oxygen Concentration - - Weight 111.6 kg (246 lb) 02/23/2021 3:00 PM EDT Height 161.3 cm (5' 3.5) 02/23/2021 3:00 PM EDT Body Mass Index 42.89 02/23/2021 3:00 PM EDT documented in this encounter Progress Notes * Thalia Flanagan MD - 02/23/2021 3:00 PM EDT Hematology Clinic [place] [id number] NEW PATIENT EVALUATION Patient Active Problem List Diagnosis ??? PCOS (polycystic ovarian syndrome) ??? Papillary microcarcinoma of thyroid ??? Class 3 severe obesity with serious comorbidity and body mass index (BMI) of 45.0 to 49.9 in adult ??? Insulin resistance ??? Pre-diabetes ??? Recurrent herniation of lumbar disc ??? HNP (herniated nucleus pulposus), lumbar ??? History of nephrolithiasis ??? 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 Psoriasis ??? Hypothyroid ??? Depression ??? CARLOS (obstructive sleep apnea) HISTORY OF PRESENT ILLNESS: Patient prefers to be called: Genie Support person(s) : friends, therapist It was my pleasure to meet Genie Estrada today. Genie Estrada is a 45 y.o. year old female being seen for evaluation of elevated WBC. she is referred in consultaion from Dr Donohue. The WBC is listed below. Marginal increase and normal differential. PMHX: Elevated creatinine - Bipolar depression -stable on lamotrigine Acute on chronic depression ADHD, combined type - Discontinued Vyvanse; now on aderall Hyperglycemia on Metformin and working with weight and wellness. Polycystic ovarian syndrome -managed with OCPs, and spironolactone Papillary carcinoma of the thyroid Hypothyroidism Gastritis Anxiety -well controlled on clonazepam and counseling Angiolipoma of the right kidney Asthma Hypertension Obstructive sleep apnea - does not use CPAP PTSD-working with a counselor PSHX: Status post thyroidectomy Cholecystectomy EGD October 2019 History of discectomy History of foot surgery ROS Energy level:stable Pain: No Appetite:good Unexpected weight loss or gain:No Change in adenopathy or other masses:No Fevers/chills/sweats:+ NS for last months; PCOS Bruising/bleeding/melena:No Recent infections: COVID vaccination X 2 Headaches:neg Vision:neg Hearing:neg Sinus: neg Seasonal Allergies: neg Mouth sores:neg Dentition: Good Swallowing: neg GERD : Gastritis controlled on PPI Nausea/vomiting: neg diarrhea/constipation:No SOB/TAPIA/pulmonary sx: no Cardiac symptoms: sx: negative Skin rashes or petechiae:No Musculoskeletal complaints:No Extremities: Negative upper and lower bilaterally Neurologic symptoms:No Mental Status changes: neg Mood: normal mood Sleep: Some difficulty sleeping ; CARLOS MEDS: Outpatient Medications Marked as Taking for the 02/23/21 encounter (Office Visit) with Thalia Flanagan MD Medication Sig Dispense Refill ??? azelastine (ASTELIN) 137 mcg (0.1 %) Aerosol, Heth 1 spray by Nasal route daily. Use in each nostril as directed ??? dextroamphetamine-amphetamine (Adderall) 10 mg Tablet Take 10 mg by mouth daily. ??? lansoprazole (PREVACID) 30 mg Capsule, Delayed Release(E.C.) Take 30 mg by mouth daily. ??? metFORMIN XR (Glucophage XR) 500 mg Tablet Sustained Release 24 hr TAKE 2 TABLETS BY MOUTH DAILY WITH THE EVENING MEAL 180 tablet 1 ??? levothyroxine (Synthroid) 200 mcg Tablet Take 1 tablet by mouth daily. 90 tablet 3 ??? fluticasone propionate (FLONASE) 50 mcg/actuation Heth, Suspension INSTILL 1 SPRAY INTO EACH NOSTRIL BID ??? clonazePAM (KlonoPIN) 0.5 mg Tablet, Rapid Dissolve Take 0.5 mg by mouth daily as needed. ??? loratadine (Claritin) 10 mg Tablet Take 10 mg by mouth daily. ??? spironolactone (ALDACTONE) 50 mg Tablet Take 1 tablet by mouth daily. (Patient taking differently: Take 50 mg by mouth 2 times daily.) 90 tablet 3 ??? lamoTRIgine (LAMICTAL) 150 mg Tablet TK 1 T PO D 2 ??? norgestimate-ethinyl estradiol (TRI SPRINTEC) 0.18/0.215/0.25 mg-35 mcg (28) Tablet Take 1 tablet by mouth daily. 84 tablet 3 ??? losartan (COZAAR) 25 mg Tablet Taking 1/2 tablet 0 Allergies: Allergies Allergen Reactions ??? Bupropion Mood swings ??? Flexeril [Cyclobenzaprine] Anger FAMILY HISTORY: Mother: alive, no medical care Father: alive, no medical care Sibs: A&W Children:none Other: negative SOCIAL HISTORY Personal: Patient lives alone. . No children. She has cats and 1 dog. Work history: Disability for PTSD and bipolar ETOH: Occasional alcohol usually just with holidays and special occasions Smoking: Former smoker, quit 10/01/2009 Marijuana or other recreational drug use: none PHYSICAL EXAM BP 122/80 (Patient Position: Sitting) Pulse 84 Temp 36.4 ??C (97.5 ??F) (Temporal) Resp 16 Ht 161.3 cm (5' 3.5) Wt 111.6 kg (246 lb) SpO2 98% BMI 42.89 kg/m?? Body surface area is 2.24 meters squared. GENERAL: Genie Estrada appears well and is in no acute distress. ENT: Oral pharynx clear. EYES: AMADEO NECK: Supple without adenopathy. AXILLARY: no adenopathy INGUINAL LN: no adenopathy OTHER LYMPH: no adenopathy CARDIAC: Regular rate and rhythm without S3,S4 or murmurs. LUNGS: Clear to auscultation./percussion ABDOMEN: Soft and non-tender without hepatosplenomegaly or masses. EXTREMITIES: No cyanosis, clubbing, edema or calf tenderness. SKIN: No bruises or petechiae. NEUROLOGICAL: Alert and oriented to person, place and time. MUSCULOSKELETAL: No spinal or chest wall tenderness. LABORATORY STUDIES Recent Results (from the past 72 hour(s)) CBC (with Diff) Result Value Ref Range WBC 10.86 Hemoglobin 14.5 Hematocrit 43.5 Platelets 304 Neutr Abs (ANC) 7 Creatinine 1.1 Differential on the 02/23/2021 CBC revealed an ANC of 7.0, ALC of 2.89, AMC 0.89, no eosinophils, and basophils of 0.01. These are absolute numbers. Normal differential Labs from 05/14/2020, 07/06/2020, 08/02/2020, 09/07/2020, were reviewed. The majority of these were BMPs presumably for follow-up of her renal function. Labs are listed above. CBC was also drawn on 12/14/2020 with a white count of 12.1, hemoglobin 14.6,MCV 8079.7, RDW 13.5, and platelet count of 373. Results for GENIE ESTRADA ( ) as of 02/23/2021 15:28 Ref. Range 08/26/2012 11:00 03/03/2013 15:48 08/14/2013 12:40 02/23/2021 00:00 WBC Unknown 12.1 (H) 9.8 12.0 (H) 10.86 RBC Latest Ref Range: 3.93 - 5.22 x10(6)/mcL 5.88 (H) 6.04 (H) 6.09 (H) Hemoglobin Unknown 16.7 (H) 16.6 (H) 17.6 (H) 14.5 Hematocrit Unknown 48.3 (H) 49.6 (H) 49.6 (H) 43.5 MCV Latest Ref Range: 79.0 - 94.0 fL 82.1 82.1 81.4 MCH Latest Ref Range: 26.6 - 32.2 pg 28.4 27.5 28.9 MCHC Latest Ref Range: 32.0 - 36.5 gm/dL 34.6 33.5 35.5 RDWSD Latest Ref Range: 35.0 - 46.0 fL 41.8 41.1 40.9 RDWCV Latest Ref Range: 10.9 - 14.4 % 14.0 13.9 14.0 Platelets Unknown 253 243 275 304 MPV Latest Ref Range: 9.0 - 12.0 fL 9.9 9.9 10.0 Plat Immature % Latest Ref Range: 0.0 - 7.4 % 2.[address] % Latest Ref Range: 0.5 - 2.4 % 1.[address] Abs Latest Ref Range: 0.027 - 0.095 x10(6)/mcL 0.080 Immature Retic% Latest Ref Range: 2.3 - 15.9 % 6.8 Reticulated Hgb Latest Ref Range: 28.8 - 38.9 pg 32.6 Neutr Abs (ANC) Unknown 8.82 (H) 6.36 (H) 9.02 (H) 7 PATHOLOGY: none RADIOLOGY STUDIES REVIEWED: None ASSESSMENT/PLAN: Genie Estrada is a very pleasant 45 y.o. female referred by Dr Muhammad for evaluation of leukocytosis. Ms. estrada was referred for mild chronic leukocytosis. In fact looking back at the labs she has had at [facility], she has had similar values with a white count running between 10-12k as far back as 2012. Over time, her white count has ranged from high normal to just above normal. There is been no trend over time. Her differential is normal. Other cell lines remain normal as well. The leukocytosis is predominantly a neutrophilia. ALC is normal. I explained to Ms. estrada that I have no concerns. Her white count is just above normal and in the normal population who does not have an underlying autoimmune or inflammatory condition, the most common causes of elevated white counts are smoking and obesity. The patient no longer smokes, but sheis overweight. This may be contributing to the abnormal values. Medications are also common cause, and she has been on multiple medications for her medical problems, with some increases and decreasesas well as new medications and elimination of old medications over the last year to 2. Overall Ms. estrada leukocytosis is consistent with a benign process and I do not think further evaluation is necessary. If her over time, there is a progression and she is consistently and repeatedly above the 15-20,000 range, then please feel free to send her back For hematologic evaluation. I reassured Ms. estrada that no further work-up is necessary. We talked about weight loss. Although she does not need to lose weight merely because of her elevated white count; weight loss in general would be good for her overall health and I encouraged her to continue to pursue weight loss strategies. Wish her the very best. I am available if she ever needs consultation again. Thank you for the referral I discussed all of the above with the patient and all of her questions were answered. Support and counseling given as appropriate. This note was written or modified using [employer] voice recognition software. The final note was screened for mistakes. Please excuse any remaining errors. total time: time in counselling: Copy Brittany Muhammad DO . * Linsey Lee RN - 02/23/2021 3:00 PM EDT MEDICAL ONCOLOGY INITIAL NURSING ASSESSMENT ADVANCE DIRECTIVES: In EDH [ ] Has documents [ ] Will bring in [ ] does not have IF NO: Advance Directive pamphlet provided : Referral to Care Management : PRESENTING SYSTEMS and PATHOLOGY: high white count REVIEW OF SYSTEMS: see Masha note Prior Radiotherapy: no[ x ] Yes[ ]Site Date Facility Prior Chemotherapy: no[ x ] Yes[ ] Drug: Oncologist- LastTreatment: Balance difficulty: [ x ]no [ ]yes At risk for fall: [x ] no [ ] yes If yes, actions implemented to prevent fall. Patient/family instructed to avoid independent ambulation. Use wheelchair and ask for assistance of staff while in the clinic. ADL [ x ] no limits [ ] needs dressing assistance [ ] needs meal assistance Assistive device:[x ]none [ ]cane [ ]walker [ ]wheelchair [ ]other: explain PAIN ASSESSMENT: [ 0 ] out of 10 Unless moving then up to 6 in back working with PCP on this Location: Description: [ ] Dull [ ] Sharp [ ] Burning [ ] Throbbing [ ] Radiating [ ] Continuous [ ]Intermittent Aggravating Factors: [ ] Movement [ ] Position [ ]Immobility [ ]Other Alleviating Factors: [ ]Medication [ ] Positioning [ ] Other Current Pain Management Plan: [ ]Satisfied [ ] Not satisfied SOCIAL ASSESSMENT: See EDH social assessment information entered. Support Systems: family and friends in area transportation plan: [x ]private vehicle [ ] RCT needs Social Work referral [ ] Unknown at this time needs Social Work referral Barriers to treatment: none at this time documented in this encounter Plan of Treatment [...] night Follow up with sleep lab at [facility] regarding treatment of sleep apnea food choices [...] 1/4 avocado, 1-2 tbsp dressing 1-2 cups [id number] veggies Write down in a notebook with [...] Perez RD documented as of this encounter Procedures Procedure Name Priority Date/Time Associated Diagnosis Comments CBC (WITH DIFF) Routine 02/23/2021 documented in this encounter Results * CBC (with Diff) (02/23/2021) White Blood Cell 10.86 Hemoglobin 14.5 Hematocrit 43.5 Platelet 304 ANC 7 Creatinine 1.1 Blood 02/23/2021 Historical Provider HEMATOLOGY ORDERA BLES documented in this encounter Visit Diagnoses Diagnosis Leukocytosis, unspecified type documented in this encounter Care Teams Farmworker Machine Relationship Specialty Start Date End Date Brittany Muhammad DO [address] [facility] [place] [address] PCP - General Family Medicine 01/23/19 documented as of this encounter
--- OUTSIDE RECORDS SUMMARY | 2024-05-07 02:53 | XMS_ITS | Encounter Summary ---
Author Organization [facility] [place] [address] Care Team Providers Care Living Manager Name Role Phone SabinaAsmitajs Garcia DO Primary Care Provider +1- [phone] Encounter Details Date Type Department Care Team (Late st Contact Info) Description 10/21/2020 5:30 PM EST Notes Only Weight and Wellness at [address] [phone] Social History Tobacco Use Types Packs/Day Years [...] - Inhaled Oxygen Concentration - - Weight 107.5 kg (237 lb 1.6 oz) 10/21/2020 5:00 PM EST Height 157.5 cm (5' 2.01) 10/21/2020 5:00 PM ES T Body Mass Index 43.35 10/21/2020 5:00 PM EST documented in this encounter [...] night Follow up with sleep lab at [facility] regarding treatment of sleep apnea food choices [...] 1/4 avocado, 1-2 tbsp dressing 1-2 cups [id number] veggies Write down in a notebook with [...] on filedocumented in this encounter Care Teams Living Manager Relationship Specialty Start Date End Date Brittany Muhammad DO [address] [place] [address] PCP - General Family Medicine 01/23/19 documented as of this encounter
--- OUTSIDE RECORDS SUMMARY | 2024-05-07 02:53 | XMS_ITS | Encounter Summary ---
Author Organization [facility] Address [facility] [place] [address] Care Team Providers Care Assembler Hydraulic Backhoe Name Role Phone MurielmagdysilvianoBrittany reynolds Primary Care Provider +1- [phone] Encounter Details Date Type Department Care Team (Latest Contact Info) Description 04/14/2021 9:30 AM EDT TH Visit (TeleHealth) Weight and Wellness at [address] [address] Crystal Holley, LAP REGULATOR [facility] DR [facility] [place] [address] Class 3 severe obesity due to excess calories with serious comorbidity and body mass index (BMI) of 45.0 to 49.9 in adult; Insulin resistance Social History Tobacco Use Types Packs/Day Years [...] - Inhaled Oxygen Concentration - - Weight 110.2 kg (243 lb) 04/14/2021 11:00 AM EDT Height 157.5 cm (5' 2.01) 04/14/2021 11:00 AM E DT Body Mass Index 44.43 04/14/2021 11:00 AM EDT documented in this encounter Patient Instructions * Patient Instructions* Crystal Holley Jose Luis, LAP REGULATOR - 04/14/2021 9:30 AM EDT From our visit today: good to see you genie, I will work on sending you some recipes and plans Try adding more walking in as allergies allow We will continue metformin in the evening only. I have asked that you get set up with our psychologist individually. Let me know if you need anything or have any questions. Crystal Goals Addressed This Visit's Progress ??? medication On track Continue metformin 1000mg in the evening with food ??? movement On track Continue what might help make the walks more regular and have a bad weather alternative- will send yoga sheet with some online videos to investigate and see if you can find one that works for you. Consider adding some sort of strength training Consider setting some goals for summer, give you something to work toward/look forward to. ??? stress management On track Continue working with therapist to manage stress Deep breathing before bedtime Find some activities/hobbies you enjoy to keep your mind and body busy Medications 04/14/21 1155 Medication Sig Taking? BLOOD SUGAR DIAGNOSTIC, DISC MISC by NOT APPLICABLE route. Yes desonide (DESOWEN) 0.05 % Lotion Apply topically. Yes FLUTICASONE PROPION-SALMETEROL INHL Inhale into the lungs. Yes blood sugar diagnostic (GLUCOMETER DEX TEST SENSORS INVT) Yes lancets Misc by NOT APPLICABLE route. Yes methylphenidate ER (Metadate) 20 mg Tablet Sustained Release Take by mouth. Yes methylphenidate (METADATE ER) 10 mg Tablet Sustained Release Take by mouth. Yes azelastine (ASTELIN) 137 mcg (0.1 %) Aerosol, Enterprise 1 spray by Nasal route daily. Use in each nostril as directed dextroamphetamine-amphetamine (Adderall) 10 mg Tablet Take 10 mg by mouth daily. lansoprazole (PREVACID) 30 mg Capsule, Delayed Release(E.C.) Take 30 mg by mouth daily. metFORMIN XR (Glucophage XR) 500 mg Tablet Sustained Release 24 hr TAKE 2 TABLETS BY MOUTH DAILY WITH THE EVENING MEAL levothyroxine (Synthroid) 200 mcg Tablet Take 1 tablet by mouth daily. fluticasone propionate (FLONASE) 50 mcg/actuation Enterprise, Suspension INSTILL 1 SPRAY INTO EACH NOSTRIL BID Ventolin HFA 90 mcg/actuation HFA Aerosol Inhaler Inhale 90 mcg into the lungs as needed. clonazePAM (KlonoPIN) 0.5 mg Tablet, Rapid Dissolve Take 0.5 mg by mouth daily as needed. loratadine (Claritin) 10 mg Tablet Take 10 mg by mouth daily. spironolactone (ALDACTONE) 50 mg Tablet Take 1 tablet by mouth daily. Patient taking differently: Take 50 mg by mouth 2 times daily. lamoTRIgine (LAMICTAL) 150 mg Tablet TK 1 T PO D norgestimate-ethinyl estradiol (TRI SPRINTEC) 0.18/0.215/0.25 mg-35 mcg (28) Tablet Take 1 tablet by mouth daily. SUMAtriptan (IMITREX) 50 mg Tablet losartan (COZAAR) 25 mg Tablet Taking 1/2 tablet documented in this encounter Progress Notes * Crystal Holley APRN - 04/14/2021 9:30 AM EDT [facility] Visit Patient provided verbal consent prior to initiation of this telemedicine encounter and expressed understanding that the telemedicine visit may be billed similar to a clinic visit, pt was seen while at her home in [facility] I spent a total of 40 minutes in discussion / counseling related to medications, obesity, nutrition/ meal planning, physical activity and obesity related co- morbidities as well as charting, reviewingnotes and in chart review. Patient Name: Genie Alejandre Date of : 1975 Age: [address] Brittany Muhammad, DO / CHIEF COMPLAINT: Follow-up for Obesity SUMMARY OF VISIT AND RECOMMENDATIONS: Genie Alejandre is currently being treated with metformin and lifestyle for obesity. Genie Alejandre was seen in follow up today for ongoing management, and an updated medical, diet and activity review was completed. She has been having a hard time with her allergies, having a hard time exercising because she is coughing so much, seems to be improving over the past week or so, plans to resume regular walking- likes to take her dog to [place] with friends. . She is under a lot of stress with her grandmother who fell and had to be moved into a half-way,she goes to see her regularly and she finds that exhausting. She ends up needing to take a nap after she sees her. Has had a hard time with meal planning, has been seeing HC and RD and just can't seem to learn to do it. I reviewed several options, will send her some plans as she just can't seem to figure out how to make it happen for herself, feels her ADHD keeps her from being able to implement a plan. She finds it hard to shop for just herself without things going to waste. Again, reviewed strategies to plan so she uses what she buys, will send some examples. She is not having a lot of cravings, is focusing on having a protein snack in the afternoon and that helps. She is working with pcp on medical management of depression/ADD, she is also in counseling but feels she may benefit with focus on behavior change. Referred for individual consult with psychologist here. She has read intuitive eating and that helped her with feeling more self compassion and less judgement but still struggling. She has been taking metformin 1000mg pm and is doing ok with it. Renal function is slightly impaired, but has improved some, (GFR 53) so will stay at that dose for now.A1C 5.9 Her first meal is 10-12am, dinner 630pm We will follow up in 8 weeks to evaluate progress. Assessment and Plan: Obesity Starting Weight: 257 Today's weight: 243 weight loss 14 # 5.45% total body weight Last 5 weight values: Wt Readings from Last 5 Encounters: 03/18/21 110.2 kg (243 lb) 02/23/21 111.6 kg (246 lb) 02/17/21 107.1 kg (236 lb 3.2 oz) 12/30/20 105.4 kg (232 lb 6.4 oz) 12/16/20 (P) 107.4 kg (236 lb 12.8 oz) Goals Addressed This Visit's Progress ??? medication On track Continue metformin 1000mg in the evening with food ??? movement On track Continue what might help make the walks more regular and have a bad weather alternative- will send yoga sheet with some online videos to investigate and see if you can find one that works for you. Consider adding some sort of strength training Consider setting some goals for summer, give you something to work toward/look forward to. ??? stress management On track Continue working with therapist to manage stress Deep breathing before bedtime Find some activities/hobbies you enjoy to keep your mind and body busy INTERVAL HISTORY / PROGRESS TOWARD GOALS: [x] I reviewed past / interim records including notes and labs [facility] Followup Responses 02/25/2020 URICA - Readiness Score 10.66 (Contemplation State) WEL-SF Total Scores 47 PROMIS 6B Scores 43.1 PHQ-2 SubScore 6 (Full PHQ-9 indicated) GAD2 Subscore 4 (Full EDU-7 indicated) EDU 7 Total Scores 10 (Moderate Anxiety) PROMIS 10 Physical Scores 39.8 PROMIS 10 Mental Scores 33.8 IPAQ - SF Scores 3 Total REAP-S Scores 26 TFEQ - Uncontrolled Eating (UE) 55.55 TFEQ-Cognitive Restraint (CR) 11 TFEQ-Emotional Eating 61.11 Food Insecurity Score 3 Days absent from work/school because of weight Not applicable Worried food would run out before we got money to buy more Sometimes true Food didnt last; no money to get more Never true Patient started on new medications: adderall New medical conditions: no Recent Hospitalizations: no Daily eating Patterns: IF Most days, starts 10a-12p- 630pm, does ok most of the time though had a hard time during the winter, more focused now 24 hour Diet Recall: Breakfast: 10-12: usually scrambled eggs with spinach/toast OR protein smoothie with spinach and fruit and protein powder Snack: might have pb crackers or celery or piece of fruit, Or carrots with hummus- mid to late afternoon Lunch: Snack: Dinner:6pm: having a hard time, gets hung up, has recipe ideas but has not followed through Snacks: sometimes Ice cream Drinks:getting at least 64 oz a day Alcohol : What Letter Grade (A-F) Patient gave self for following behavior change: Stopping Eating after dinner:A, stopped eating after dinner Decreasing Processed foods: B-doing mostly whole foods, prepares vegetables on the weekend to have ready for weeknight meals-has been reading intuitive eating. She has learned to let go more of her expectations and all or nothing thinking. More forgiveness of self for set backs. 150 minutes of weekly Movement: C not as much due to allergies Resistance training 2 days a week: D, has not made a habit Taking Medications consistently: A Consistent bedtimes: A/B Sleepin-8 hours, still planning to follow with [facility] sleep lab but was put off due to COVID- takes 1/2 mg clonazepam for sleep and that helps Stress scale: feels is ok, is in regular therapy, trying to fit more activities in, walking dog regularly Daily stress reduction: C getting out in the [place], daily meditation Since starting the medication, are you having any of the following; new changes are bolded: REVIEW OF SYSTEMS: see above HPI for additional pertinent +/- findings Constitutional: Appetite, Tired during the day. HEENT: Visual changes. Dry mouth. Change in taste CV: Chest pain or discomfort, palpitations. Increased blood pressure or pulse. Feeling short of breath when lying flat RESP: Shortness of breath at rest, cough, wheezing. Shortness of breath with exercise GI: Nausea, vomiting, diarrhea, constipation, abdominal pain- some GI upset : Pain with urination, blood in urine, kidney stones impotence, change in libido If female: control method-OCP Musculoskeletal: joint swelling, joint pain Integumentary: Rash or skin breakdown. Bruising. Psychiatric: Anxiety, depression, thoughts of hurting yourself or someone else. Psychosis Neurological: Headaches, dizziness, tingling arms/legs, restlessness, insomnia, tremor VITAL SIGNS: Ht 157.5 cm (5' 2.01) Wt 110.2 kg (243 lb) BMI 44.43 kg/m?? PHYSICAL EXAM: Gen: Genie Alejandre is a pleasant engaged, appropriate, 45 year old female who appears stated age, NAD. Neuro: Alert and oriented Psych: NL affect today, engaged in the visit documented in this encounter Plan of Treatment [...] management Lifestyle On track( 11:55 AM EDT) No Crystal Holley APRN Note: Continue working with therapist to manage stress Deep breathing before bedtime Find some activities/hobbies you enjoy to keep your mind and body busy sleep Lifestyle Not on track( 3:19 PM EDT) No Crystal Holley APRN Note: Try to stay up during [...] 1/4 avocado, 1-2 tbsp dressing 1-2 cups [id number] veggies Write down in a notebook with [...] documented as of this encounter Visit Diagnoses Diagnosis Class 3 severe obesity due to excess calories with serious comorbidity and body mass index (BMI) of 45.0 to 49.9 in adult Insulin resistance Dysmetabolic Syndrome X documented in this encounter Care Teams Assembler Hydraulic Backhoe Relationship Specialty Start Date End Date Brittany Muhammad DO [address] [place] [address] PCP - General Family Medicine 01/23/19 documented as of this encounter
--- OUTSIDE RECORDS SUMMARY | 2024-05-07 02:53 | XMS_ITS | Encounter Summary ---
Author Organization [facility] Address [facility] [place] [address] Care Team Providers Care Art Framing Manager Name Role Phone Brittany Muhammad Primary Care Provider +1- [phone] Reason for Visit * Reason Onset Date Comments Medication Refill 06/16/2021 Encounter Details Date Type Department Care Team (Late st Contact Info) Description 06/16/2021 Refill [place] [address] Mark Anthony Watts MD [facility] [place] [address] Social History Tobacco Use Types Packs/Day Years [...] Lifestyle On track( 021 11:55 AM EDT) No Crystal Holley, MANUAL WRITER Note: Continue metformin 1000mg in the evening [...] Follow up with sleep lab at [facility] regarding treatment of sleep apnea food choices / tracking goals Lifestyle On track( 11:17 AM EST) No Kathy Perez, VERO [...] 1/4 avocado, 1-2 tbsp dressing 1-2 cups [id number] veggies Write down in a notebook with [...] on filedocumented in this encounter Care Teams Art Framing Manager Relationship Specialty Start Date End Date Brittany Muhammad DO [address] [place] [address] PCP - General Family Medicine 01/23/19 documented as of this encounter
--- OUTSIDE RECORDS SUMMARY | 2024-05-07 02:53 | XMS_ITS | Encounter Summary ---
[place] [address] Care Team Providers Care Photographic Hand Developer Name Role Phone Brittany Muhammad DO Primary Care Provider +1- [phone] Reason for Referral * Consultation (Routine) - Closed Specialty Diagnoses / Procedures Referred By Cash reese Referred To Contact Nephrology Diagnoses Disorder of kidney and ureter Essential hypertension Brittany Muhammad DO [address] [place] [address] [facility] Nephrology [address] [place] [id number] Referral ID Status Reason Start Date Expiration Date V isits Requested Visits Authorized [id number] Closed Consult, Test & Treat PCP Updated and/or Approved 03/31/2022 03/31/2023 6 6 Encounter Details Date Type Department Care Team (Latest Contact Info) Description 03/31/2022 Transcribe Orders eDH Incoming Referrals [phone] Brittany Muhammad DO [address] [place], [place] [id number] Disorder of kidney and ureter; Essential hypertension Social History Tobacco Use Types Packs/Day Years Used Date Smoking Tobacco: Former Cigarettes 1 5 0 10/01/2000 - 10/01/2005 Smokeless Tobacco: Never Comments:quit 2006 Alcohol Use Standard Drinks/Week Comments Yes 0 (1 standard drink = 0.6 oz pure alcohol) I drink only 3-4 times throughout the year Sex and Gender Information Value Date Recorded Sex Assigned at Female 02/16/2021 7:51 PM EDT Gender Identity Female 02/16/2021 7:51 PM EDT Sexual Orientation Straight 02/16/2021 7: 51 PM EDT documented as of this encounter Plan of Treatment Scheduled Referrals Name Type Priority Associated Diagnoses Orde r Schedule Referral to Nephrology Outpatient Referral Routine Disorder of kidney and ureter Essential hypertension Ordered: 03/31/2022 documented as of this encounter Goals Goal [...] night Follow up with sleep lab at [facility] regarding treatment of sleep apnea food choices / tracking goals Lifestyle On track( 11:17 AM EST) Kathy Rodriguez RD Note: [...] 1/4 avocado, 1-2 tbsp dressing 1-2 cups [id number] veggies Write down in a notebook with [...] as of this encounter Visit Diagnoses Diagnosis Disorder of kidney and ureter Unspecified disorder of kidney and ureter Essential hypertension Unspecified essential hypertension documented in this encounter Care Teams Photographic Hand Developer Relationship Specialty Start Date End Date Brittany Muhammad DO [address] [place] [address] PCP - General Family Medicine 01/23/19 documented as of this encounter
--- OUTSIDE RECORDS SUMMARY | 2024-05-07 02:53 | XMS_ITS | Encounter Summary ---
Author Organization [facility] Address [facility] [place] [address] Care Team Providers Care Wheel Tuner Name Role Phone Brittany Muhammad DO Primary Care Provider +1- [phone] Encounter Details Date Type Department Care Team (Late st Contact Info) Description 07/14/2021 Orders Only Weight and Wellness at [facility] [address] [place] [address] Joan Guzman MD [facility] [place] [address] Class 3 severe obesity with serious comorbidity and body mass index (BMI) of 45.0 to 49.9 in adult, unspecified obesity type; Insulin resistance; Pre-diabetes Social History Tobacco Use Types Packs/Day Years [...] Recent Progress Patient-Stated? Author medication Lifestyle On track(07/15/2 021 11:55 AM EDT) Crystal Wells APRN [...] with sleep lab at [facility] regarding treatment of sleep apnea food choices [...] 1/4 avocado, 1-2 tbsp dressing 1-2 cups [id number] veggies Write down in a notebook with [...] Visit Diagnoses Diagnosis Class 3 severe obesity with serious comorbidity and body mass index (BMI) of 45.0 to 49.9 in adult, unspecified obesity type Insulin resistance Dysmetabolic Syndrome X Pre-diabetes Other abnormal glucose documented in this encounter Care Teams Wheel Tuner Relationship Specialty Start Date End Date Brittany Muhammad DO [address] [place] [address] PCP - General Family Medicine 01/23/19 documented as of this encounter
--- OUTSIDE RECORDS SUMMARY | 2024-05-07 02:53 | XMS_ITS | Encounter Summary ---
Author Organization [facility] [place] [address] Care Team Providers Care Hostel Parent Name Role Phone MurielmagdysilvianoBrittany reynolds Jose BARRETO Primary Care Provider +1- [phone] Encounter Details Date Type Department Care Team (Late st Contact Info) Description 10/14/2020 5:30 PM EST Notes Only Weight and Wellness at [place] [address] [place] [address] Arrived Social History Tobacco Use Types Packs/Day [...] forward to. stress management Lifestyle On track( 021 11:55 AM EDT) No Crystal Holley APRN Note: Continue working with therapist to manage stress Deep breathing before bedtime Find some activities/hobbies you enjoy to keep your mind and body busy sleep Lifestyle Not on track( 021 3:19 PM EDT) No Crystal Holley APRN Note: Try to stay up during the day and be active, will make it more likely you will sleep at night Deep breathing/meditation at night Follow up with sleep lab at [facility] regarding treatment of sleep apnea food choices / tracking goals Lifestyle On track( 020 11:17 AM EST) No Kathy Perez [...] 1/4 avocado, 1-2 tbsp dressing 1-2 cups [id number] veggies Write down in a notebook with [...] on filedocumented in this encounter Care Teams Hostel Parent Relationship Specialty Start Date End Date Brittany Muhammad DO [address] [place] [address] PCP - General Family Medicine 01/23/19 documented as of this encounter
--- OUTSIDE RECORDS SUMMARY | 2024-05-07 02:53 | XMS_ITS | Encounter Summary ---
Author Organization [facility] [place] [address] Care Team Providers Care Electrical Electronics Engineers Name Role Phone Sabina Brittanyjs Garcia DO Primary Care Provider +1- [phone] Encounter Details Date Type Department Care Team (Late st Contact Info) Description 02/16/2021 Telephone Weight and Wellness at [address] [address] Kathryn Bashir, CHIO Social History Tobacco Use Types Packs/Day Years [...] PM EDT documented as of this encounter Miscellaneous Notes * Telephone Encounter - Kathryn Bashir CMA - 02/16/2021 3:56 PM EDT [facility] Certified Prosthetist Pre-telemedicine Visit Phone Note Genie Alejandre 1975 [] Patient was not reached: [] No working phone [] Not able to leave message [] Message left with visit info/call [phone] [] ZOOM link sent if no MyDH [] Patient was reached and the following information was reviewed/obtained per protocol: [] Confirmed patient name and date of [] Confirmed address where patient will be at time of call Patient is in [] [place] [] [place] [] Other: [address] [facility] [address] [facility] [address] [] Confirmed best number to be reached is: [] Reminded to sign up for MyD (sent invite) [] Reminded to complete MyD survey if message received to do so [] Confirmed ZOOM downloaded and functioning [] Confirmed visit contact information updated (text/email for sending ZOOM link) [] ZOOM appointment link sent if no MyDH REVIEW: [] Review of patient medications completed Have you started on any NEW medications? [] No [] Yes: [] Confirmed preferred pharmacy: Documented self reported vital signs from [] None available [] Home [] PCP [] outside PCP Date: [] Weight [] Height [] Blood pressure [] Pulse Any recent labs/studies [] No [] Yes: [] Labs/vitals requested [] labs/vitals scanned (secretary of state) and entered (RN) [] Requested 24 hour diet recall [] Other information or concerns: Interested in [facility] QI project [] No [] Yes [remind me task to yajaira] FOR FOLLOW-UP VISITS: from mailed intake worksheet Interval History ??? Any NEW medical conditions? [] No [] Yes: ??? Any recent hospitalizations? [] No [] Yes: documented in this encounter Plan of Treatment [...] night Follow up with sleep lab at [facility] regarding treatment of sleep apnea food choices [...] 1/4 avocado, 1-2 tbsp dressing 1-2 cups [id number] veggies Write down in a notebook with [...] on filedocumented in this encounter Care Teams Electrical Electronics Engineers Relationship Specialty Start Date End Date Brittany Muhammad DO [address] [place] [address] PCP - General Family Medicine 01/23/19 documented as of this encounter
--- OUTSIDE RECORDS SUMMARY | 2024-05-07 02:53 | XMS_ITS | Encounter Summary ---
Author Organization [facility] [place] [address] Care Team Providers Care Target Developer Name Role Phone Sabina Brittanyjs Garcia DO Primary Care Provider +1- [phone] Reason for Visit * Reason Onset Date Comments Appointment 03/15/2021 Encounter Details Date Type Department Care Team (Late st Contact Info) Description 03/15/2021 Telephone Weight and Wellness at [address] [address] Apple Teixeira Appointment Social History Tobacco Use Types Packs/Day Years [...] encounter Miscellaneous Notes * Telephone Encounter - Apple Teixeira - 03/15/2021 1:20 PM EDT Return in about 8 weeks (around 04/14/2021) for GREEN MEAT GRADER, zoom, RD, HC 2w after RD, psychologist. Would like to resume visits with RD/HC, also would like to see psych for individual help (referral entered) documented in this encounter Plan of Treatment [...] night Follow up with sleep lab at [facility] regarding treatment of sleep apnea food [...] 1/4 avocado, 1-2 tbsp dressing 1-2 cups [id number] veggies Write down in a notebook with [...] on filedocumented in this encounter Care Teams Target Developer Relationship Specialty Start Date End Date Brittany Muhammad DO [address] [place] [address] PCP - General Family Medicine 01/23/19 documented as of this encounter
--- OUTSIDE RECORDS SUMMARY | 2024-05-07 02:53 | XMS_ITS | Encounter Summary ---
Author Organization [facility] [place] [address] Care Team Providers Care Barrel Rifler Hook Name Role Phone SabinaAsmitajs Garcia DO Primary Care Provider +1- [phone] Encounter Details Date Type Department Care Team (Late Contact Info) Description 09/16/2020 5:30 PM EST Notes Only Weight and Wellness at [address] [phone] Social History Tobacco Use Types Packs/Day Years [...] - Inhaled Oxygen Concentration - - Weight 108 kg (238 lb 1.6 oz) 09/17/2020 3:00 PM EST Height 157.5 cm (5' 2.01) 09/17/2020 3:00 PM ES T Body Mass Index 43.54 09/17/2020 3:00 PM EST documented in this encounter Plan [...] 1/4 avocado, 1-2 tbsp dressing 1-2 cups [id number] veggies Write down in a notebook with [...] on filedocumented in this encounter Care Teams Barrel Rifler Hook Relationship Specialty Start Date End Date Brittany Muhammad DO [address] [place] [address] PCP - General Family Medicine 01/23/19 documented as of this encounter
--- OUTSIDE RECORDS SUMMARY | 2024-05-07 02:53 | XMS_ITS | Encounter Summary ---
Author Organization [facility] Address [place] [address] Care Team Providers Care Lead Sharepoint Developer Name Role Phone Sabina Brittanyjs Garcia DO Primary Care Provider +1- [phone] Encounter Details Date Type Department Care Team (Late st Contact Info) Description 02/25/2021 Telephone [place] [phone] Liza Seymour I Social History Tobacco Use Types Packs/Day Years [...] encounter Miscellaneous Notes * Telephone Encounter - Liza Fuentes I - 02/25/2021 8:39 AM EDT To reschedule August appointment with Dr. Watts for March 18 at 2 with ultrasound documented in this encounter Plan of Treatment [...] night Follow up with sleep lab at [facility] regarding treatment of sleep apnea food choices [...] 1/4 avocado, 1-2 tbsp dressing 1-2 cups [id number] veggies Write down in a notebook with [...] on filedocumented in this encounter Care Teams Lead Sharepoint Developer Relationship Specialty Start Date End Date Brittany Muhammad DO [address] [place] [address] PCP - General Family Medicine 01/23/19 documented as of this encounter
--- OUTSIDE RECORDS SUMMARY | 2024-05-07 02:53 | XMS_ITS | Encounter Summary ---
Author Organization [facility] [place] [address] Care Team Providers Care Computer Technical Specialist Name Role Phone Sabina Brittanyjs Garcia DO Primary Care Provider +1- [phone] Reason for Referral * Consultation (Routine) - Closed Specialty Diagnoses / Procedures Referred By Cash reese Referred To Contact Weight and Wellness Diagnoses Class 3 severe obesity with serious comorbidity and body mass index (BMI) of 45.0 to 49.9 in adult, unspecified obesity type Crystal Holley APRN [facility] [address] [facility] [address] [place] [id number] Referral ID Status Reason Start Date Expiration Date V isits Requested Visits Authorized [id number] Closed Assume Subset of Care 02/17/2021 02/17/2022 1 1 Reason for Visit * Reason Comments Follow-up weight management Encounter Details Date Type Department Care Team (Latest Contact Info) Description 02/17/2021 2:30 PM EDT TH Visit (TeleHealth) Weight and Wellness at [address] [phone] Crystal Holley APRN [facility] [place] [address] Class 3 severe obesity with serious comorbidity [...] - Inhaled Oxygen Concentration - - Weight 107.1 kg (236 lb 3.2 oz) 02/17/2021 3:00 PM EDT Height 157.5 cm (5' 2.01) 02/17/2021 3:00 PM ED T Body Mass Index 43.19 02/17/2021 3:00 PM EDT documented in this encounter Patient Instructions * Patient Instructions* Crystal Holley, CAS - 02/17/2021 2:30 PM EDT From our visit today: good to see you Genie! We will continue metformin just once a day for now. I will have you reconnect with RD and health women's lacrosse coach, also have referred you to our psychologist. Make sure you follow up with sleep at [facility]. Let me know if you need anything or have questions Crystal Goals Addressed This Visit's Progress ??? medication On track We will start metformin to target insulin resistance, titrate up as tolerated. Take with food, staywith just once a day for now ??? movement On track Continue what might help make the walks more regular and have a bad weather alternative- will send yoga sheet with some online videos to investigate and see if you can find one that works for you. Consider adding some sort of strength training Consider setting some goals for summer, give you something to work toward/look forward to. ??? sleep Not on track Try to stay up during the day and be active, will make it more likely you will sleep at night Deep breathing/meditation at night Follow up with sleep lab at [facility] regarding treatment of sleep apnea Medications 02/17/21 1523 Medication Sig Taking? metFORMIN XR (Glucophage XR) 500 mg Tablet Sustained Release 24 hr Take 2 tablets by mouth daily. With evening meal levothyroxine (Synthroid) 200 mcg Tablet Take 1 tablet by mouth daily. fluticasone propionate (FLONASE) 50 mcg/actuation Kila, Suspension INSTILL 1 SPRAY INTO EACH NOSTRIL [...] Progress Notes * Crystal Holley APRN - 02/17/2021 2:30 PM EDT [facility] Visit Patient provided verbal consent prior to initiation of this telemedicine encounter and expressed understanding that the telemedicine visit may be billed similar to a clinic visit, pt was seen while at her home in [facility] I spent a total of 30 minutes in discussion / counseling related to medications, obesity, nutritionand physical activity as well as obesity related co-morbidities Patient Name: Genie Alejandre Date of : 1975 Age: [address] Brittany Muhammad, DO / CHIEF COMPLAINT: Follow-up for Obesity SUMMARY OF VISIT AND RECOMMENDATIONS: Genie Alejandre is currently being treated with metformin and lifestyle for obesity. Genie Alejandre was seen in follow up today for ongoing management, and an updated medical, diet and activity review was completed. I have not seen Genie since last August, she reports she has been COVID hiding. Has been off track. Has lost motivation. She plans to restart monthly HLP tomorrow. She had started vyvanse and it was helping with cravings but it made her agitated so she stopped. She is planning to start Adderall. Her cravings have been pretty challenging, craves chips, ice cream, tries not to buy these things but sometimes is not successful but working on this. Stopping vyvanse made this harder. Mental health sifuentes she has been low energy, low motivation, having a hard time doing much of anything. We discussed starting ACT or seeing our psychologist individually, she would prefer to see individually to start and then may consider ACT, she is working with pcp on medical management of depression/ADD, she is also in counseling but feels she may benefit with focus on behavior change. She has read intuitive eating and that helped her with feeling more self compassion and less judgement but still struggling. We discussed setting up some kind of goal going forward, she has been doing more hiking with friends, she might consider planning a trip to hike somewhere new so she has something to plan/ look forward to. We will set her up to see RD as she has not had a visit in a while and feels that would be helpful.Will also reconnect with HC as added support may be helpful She has been taking metformin 1000mg pm and is doing ok with it. Renal function is slightly impaired so will stay at that dose for now. Having labs done tomorrow, have added an A1C She has been doing regular walking with her dog at [employer] with friends. Will continue that She is doing some time restricted eating, pushes first meal out, lots of times has pre made salads from the grocery store and that works well for her. Her first meal is 10-12am, dinner 630pm We will follow up in 8 weeks to evaluate progress, she will be following up with pcp in the meantime. Assessment and Plan: Obesity Starting Weight: 257 Today's weight: 236.2 weight loss 20.8 # 8.09 % total body weight Last 5 weight values: Wt Readings from Last 5 Encounters: 02/17/21 107.1 kg (236 lb 3.2 oz) 12/30/20 105.4 kg (232 lb 6.4 oz) 12/16/20 (P) 107.4 kg (236 lb 12.8 oz) 12/02/20 107.1 kg (236 lb 1.6 oz) 11/25/20 106.7 kg (235 lb 3.2 oz) Goals Addressed This Visit's Progress ??? medication On track We will start metformin to target insulin resistance, titrate up as tolerated. Take with food, staywith just once a day for now ??? movement On track Continue what might help make the walks more regular and have a bad weather alternative- will send yoga sheet with some online videos to investigate and see if you can find one that works for you. Consider adding some sort of strength training Consider setting some goals for summer, give you something to work toward/look forward to. ??? sleep Not on track Try to stay up during the day and be active, will make it more likely you will sleep at night Deep breathing/meditation at night Follow up with sleep lab at [facility] regarding treatment of sleep apnea INTERVAL HISTORY / PROGRESS TOWARD GOALS: [x] I reviewed past / interim records including notes and labs [facility] Followup Responses 02/25/2020 URICA - Readiness Score [...] Never true Patient started on new medications: no but will be starting adderall New medical conditions: no Recent Hospitalizations: [...] or piece of fruit, Or carrots with hummus Lunch: Snack: Dinner:6pm: usually a salad from [employer] Snacks: sometimes Ice cream Drinks:getting at least [...] set backs. 150 minutes of weekly Movement: B- walking her dog consistently Resistance training 2 days a week: D, has not made a habit Taking Medications consistently: A Consistent bedtimes: A/B Sleepin-8 hours, still planning to follow with [facility] sleep lab but was put off due to COVID- takes 1/2 mg clonazepam for sleep and that helps Stress scale: feels is ok, is in regular therapy, trying to fit more activities in, walking dog regularly Daily stress reduction: A getting out in the [place], daily meditation [...] SIGNS: Ht 157.5 cm (5' 2.01) Wt 107.1 kg (236 lb 3.2 oz) BMI 43.19 kg/m?? PHYSICAL EXAM: Gen: Genie Alejandre is a pleasant engaged, appropriate, 45 year old female who appears stated age, NAD. Neuro: Alert and oriented Psych: NL affect today, engaged in the visit I spent a total of 40 minutes with the patient 30 minutes of which were spent in [id number] discussion/counseling re obesity, nutrition and activity as well as obesity related co-morbidities. documented in this encounter Plan of Treatment Scheduled Referrals Name Type Priority Associated Diagnoses Orde r Schedule Referral to [facility] Outpatient Referral Routine Class 3 severe obesity with serious comorbidity and body mass index (BMI) of 45.0 to 49.9 in adult, unspecified obesity type Ordered: 02/17/2021 documented as of this encounter Goals Goal [...] night Follow up with sleep lab at [facility] regarding treatment of sleep apnea food [...] 1/4 avocado, 1-2 tbsp dressing 1-2 cups [id number] veggies Write down in a notebook with [...] glucose documented in this encounter Care Teams Computer Technical Specialist Relationship Specialty Start Date End Date Brittany Muhammad DO [address] [place] [address] PCP - General Family Medicine 01/23/19 documented as of this encounter
--- OUTSIDE RECORDS SUMMARY | 2024-05-07 02:53 | XMS_ITS | Encounter Summary ---
Author Organization [facility] Address [facility] [place] [address] Care Team Providers Care Fabrication Mig Welder Name Role Phone SabinaAsmitajs Garcia DO Primary Care Provider [phone]- [phone] Encounter Details Date Type Department Care Team (Latest Contact Info) Description 10/16/2022 3:30 PM EST Office [place] [address] Mark Anthony Watts MD [facility] [place] [address] Thyroid cancer; Hypothyroidism, postsurgical; PCOS (polycystic ovarian syndrome); Prediabetes; Vitamin D insufficiency Social History Tobacco Use Types Packs/Day Years [...] Sign Reading Time Taken Comments Blood Pressure 110/76 10/16/2022 3:10 PM EST Pulse 70 10/16/2022 3:10 PM EST Temperature 36.8 ??C (98.3 ??F) 10/16/2022 3:10 PM ES T Respiratory Rate - - Oxygen Saturation 98% 10/16/2022 3:10 PM EST Inhaled Oxygen Concentration - - Weight 109.8 kg (242 lb) 10/16/2022 3:10 PM EST Height 157.5 cm (5' 2) 10/16/2022 3:10 PM EST Body Mass Index 44.26 10/16/2022 3:10 PM EST documented in this encounter Patient Instructions * Patient Instructions* Mark Anthony Watts MD - 10/16/2022 3:30 PM EST Recent Results (from the past 24 hour(s)) Basic Metabolic Panel (non-fasting) Result Value Ref Range Glucose Lvl 92 65 - 199 mg/dL BUN 13 8 - 18 mg/dL Creatinine 1.22 (H) 0.70 - 1.20 mg/dL Sodium 138 135 - 145 mmol/L Potassium 4.8 3.5 - 5.0 mmol/L Chloride 103 98 - 107 mmol/L CO2 24 22 - 31 mmol/L Anion Gap 11 5 - 15 mmol/L Calcium 9.9 8.5 - 10.5 mg/dL Estimated GFR 54 (L) >=60 mL/min/1.73 m?? 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 TSH level is slightly suppressed at 0.09 (Target of 0.1-2.0 range), so we can taper LT4 200 mcg Sun-Sun and 0.5 tab on Sundays. To recheck lab for TSH q 3 mo standing order was placed in [facility] and [facility] lab. US studies showed a persistent [...] - Checked Tg & TSH again as abive. - To taper levothyroxine 200 mcg Sun-Sun and 0.5 tab on Sundays. Then recheck lab for TSH in 3 mo at [facility] lab. - Adjust T4 dose PRN. Goal TSH around the low end of lower limit of normal range 0.1-2.0 range. - RTC- 1 year with labs for TSH and Tg, and annual neck ultrasound as needed for thyroid ca surveillance. # PCOS and prediabetes (A1c 6.3-> 6.0% on 06/18/20-> 5.9% on 02/23/21-> 6.0% today 10/16/22) - already reduced metforminER 1500 mg/day to 1,000 mg/day per [facility] and then 500 mg daily by PCP for her insulin resistance (d/t rising Cr from 1.23 to 1.36 on 06/18/20 => Cr 1.22 on 10/16/22) - cont spironolactone 50 mg bid (unable to increase the dose due to Cr and eGFR) - cont BCPs for bone health and some night sweats at this age of 47 y.o. with some night sweats likely in eliazar-menopause as well. - already had lab for A1c and BMP as above. - to FU with PCP for A1c & Cr further. If A1c is rising with GFR >30, she can increase metforminER to 1000 mg/day RTC 6-18 months. Mark Anthony Watts MD, PhD, FACE, FACP documented in this encounter Progress Notes * Mark Anthony Watts MD - 10/16/2022 3:30 PM EST THYROID / NECK ULTRASOUND: Date: 10/16/22 Indication: Thyroid cancer Comparison: 03/18/20, 03/20/22 TSH 0.29 (03/20/22) at outside lab with Tg [...] of the neck were obtained using a [employer] Focus 400 US machine and an HFL38/15-6 broadband linear array transducer. All measurements are given as Longitudinal x Anterior-Posterior (A-P) x Transverse Right Lobe: The right lobe is absent Left Lobe: The left lobe is absent Central neck: There is a superficial small hypoechoic lesion in anterior neck off midline to the left (Level -likely a Delphian LN in central compartment) which measures 0.9x0.4x0.6 cm (was 0.8x0.4x0.6 cm in 2021, 0.8x0.4x0.6 cm on 03/18/20 and 0.8x0.5x0.7 cm on 10/05/20 at [facility]). Lateral neck: Examination of bilateral levels II to V showed a few lateral neck lymph nodes on the right, the larger of which measures 0.96x0.3x0.[address] was very thin and small with benign appearance. Impression: Post total thyroidectomy There is a superficial pre-tracheal central LN of 0.8-0.9 cm seen on US without normal hilum but nochanges over the past few years. (*previously she [...] Anthony Watts MD, PhD, FACE, FACP Date: 10/16/22 Reason for visit: Endocrine visit: Thyroid cancer, PCOS and prediabetes (A1c 6% on 06/18/20). Pt used to see Dr. Khanna and me on 01/24/20 and was transferred under my care directly since 06/22/20. She still has residual Tg at a low level of 0.5-0.6 and US at [facility] 10/05/20 showed a midline hypoechoic lesion of 0.8x0.5x0.7 cm => 0.8x0.4x0.6 cm at our visit on 03/18/21 when we did FNA washout andit was negative for Tg. Today US (03/20/22) showed exactly the same size 0.8x0.4x0.6 cm after 1-1.5 year reassuring but will cont to monitor and repeat FNA if it's enlarging or rising Tg. HPI: Genie Estrada is a 47 y.o. female who presents for follow-up of [...] 42), Ca 9.6 10/05/20 : US at [facility] showed a midline hypoechoic lesion of 0.8x0.5x0.7 cm 12/15/20: TSH 0.34, 25vitamin D 30.3 borderline low (normal 30-100) 02/23/21: TSH 1.1, A1c 5.9%, no Tg was done 03/18/21: TSH 0.4, 25vitamin D 48, FSH 0.5 (+cleaner furniture periods on BCPs with night sweats and some migraine). Tg<0.2 US showed a midline hypoechoic lesion of 0.8x0.4x0.6 cm (central LN without hilum) => FNA for Tgwash-out = negatice & she may need an excisional biopsy or repeat FNA if it's growing in size 03/20/22: TSH 0.29, Tg <0.2 10/16/22: TSH 0.09, pending for lab for Tg today. Recent Holter for 14 days and echo in early 2021 were all normal. Ok to taper LT4 200 mcg Sun_Sun and 0.5 tab on Sunday Recent Results (from the past 24 hour(s)) Basic Metabolic Panel (non-fasting) Result Value Ref Range Glucose Lvl 92 65 - 199 mg/dL BUN 13 8 - 18 mg/dL Creatinine 1.22 (H) 0.70 - 1.20 mg/dL Sodium 138 135 - 145 mmol/L Potassium 4.8 3.5 - 5.0 mmol/L Chloride 103 98 - 107 mmol/L CO2 24 22 - 31 mmol/L Anion Gap 11 5 - 15 mmol/L Calcium 9.9 8.5 - 10.5 mg/dL Estimated GFR 54 (L) >=60 mL/min/1.73 m?? Hemoglobin A1c Result Value Ref Range Hemoglobin A1C 6.0 (H) 4.3 - 5.6 % Est Avg Gluc 126 mg/dL TSH Result Value Ref Range TSH 0.09 (L) 0.27 - 4.20 mcIU/mL Patient has not noted any changes in the neck, could not feel the midline lump by herself, and is feeling well without any specific complaints. [facility] and has lost wt from 257 to 247 lbs and now 242-243 lbs stable over the past year. Symptoms of thyroid hormone excess / deficiency: Heat intolerance: No Cold intolerance: No Diarrhea: No Constipation: No Weight loss / gain: Yes, down another 1 lbs (total wt loss 11+4+3+1 lbs = 19 lbs since Oct 2019) Anxiety: No Jitteriness: No Temors: No Palpitations: No Lab Results Component Value Date/Time TSH 0.09 (L) 10/16/2022 02:27 PM TSH 0.29 03/20/2022 11:33 AM TSH 0.40 03/18/2021 03:13 PM TSH 56.60 (H) 03/02/2020 12:59 PM TSH 1.95 07/11/2019 01:51 PM TSH 0.08 (L) 05/22/2019 12:17 PM TSH 2.85 01/23/2019 01:11 PM THYROGLB <0.2 03/20/2022 11:33 AM THYROGLB <0.2 03/18/2021 03:13 PM THYROGLB 0.6 03/02/2020 12:59 PM THYROGLB 0.6 07/11/2019 01:51 PM THGAB <20.0 03/20/2022 11:33 AM THGAB [...] carcinoma, 1.7 mm (greatest slide measure), in upper??pole. - One benign node (0/1). Specimen ?Procedure: ??Total thyroidectomy Tumor ?Histologic Type: ?? Papillary carcinoma, classic (usual, conventional) ?Tumor Size: ?? 0.17 Centimeters (cm) ?Tumor Site: ?? Right lobe ?Tumor Focality: ?? Unifocal ?Tumor Extent ? Extrathyroidal Extension: ?? Not identified ?Accessory Findings ? Angioinvasion (vascular invasion): ?Not identified ? Lymphatic Invasion: ?? Not identified Margins ?Margins: ??Uninvolved by carcinoma Lymph Nodes ?Number of Lymph Nodes Involved: ?? 0 ?Number of Lymph Nodes Examined: ?1 ?Twila Levels: ?? Level - pretracheal, paratracheal and prelaryngeal / Delphian, perithyroidal (central compartment dissection) Pathologic Stage Classification (pTNM, AJCC 8th Edition) ?Primary Tumor (pT): ?? pT1a ?Regional Lymph Nodes (pN): ?? pN0 Additional Findings ?Additional Pathologic Findings: ?? Adenomatoid nodule(s) or nodular follicular disease Review of Systems See HPI. All other systems negative. PMH: Patient Active Problem List Diagnosis Code ??? Right renal mass N28.89 ??? Psoriasis L40.9 ??? Hypothyroid E03.9 ??? Depression F32.A ??? CARLOS (obstructive sleep apnea) G47.33 ??? History of nephrolithiasis Z87.442 ??? HNP (herniated nucleus pulposus), lumbar M51.26 ??? 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 Class 3 severe obesity with serious comorbidity and body mass index (BMI) of 45.0 to 49.9 in adult E66.01, Z68.42 ??? Insulin resistance E88.81 ??? Pre-diabetes R73.03 ??? PCOS (polycystic ovarian syndrome) E28.2 ??? Papillary microcarcinoma of thyroid C73 Current Outpatient Medications on File Prior to Visit Medication Sig Dispense Refill ??? cetirizine (ZyrTEC) 10 mg Tablet ??? guanFACINE (Tenex) 1 mg Tablet ??? propranoloL (Inderal) 10 mg Tablet ??? metFORMIN XR (Glucophage XR) 500 mg Tablet Sustained Release 24 hr Take 2 tablets by mouth 2 times daily (with meals). (Patient taking differently: Take 750 mg by mouth 2 times daily (with meals).) 120 tablet 0 ??? levothyroxine (Synthroid) 200 mcg Tablet TAKE ONE TABLET BY MOUTH DAILY 90 tablet 3 ??? BLOOD SUGAR DIAGNOSTIC, DISC MISC by NOT APPLICABLE route. ??? blood sugar diagnostic (GLUCOMETER DEX TEST SENSORS INVT) ??? lancets Misc by NOT APPLICABLE route. ??? dextroamphetamine-amphetamine (Adderall) 10 mg Tablet Take 20 mg by mouth daily. ??? lansoprazole (PREVACID) [...] by mouth daily. 84 tablet 3 ??? SUMAtriptan (IMITREX) 50 mg Tablet 0 ??? Victoza 3-Bob 0.6 mg/0.1 mL (18 mg/3 mL) Pen Injector ??? desonide (DESOWEN) 0.05 % Lotion Apply topically. ??? FLUTICASONE PROPION-SALMETEROL INHL Inhale into the lungs. ??? azelastine (ASTELIN) 137 mcg (0.1 %) Aerosol, Henderson 1 spray by Nasal route daily. Use in each nostril as directed ??? fluticasone propionate (FLONASE) 50 mcg/actuation Henderson, Suspension INSTILL 1 SPRAY INTO EACH NOSTRIL BID ??? clonazePAM (KlonoPIN) 0.5 mg Tablet, Rapid Dissolve Take 0.5 mg by mouth daily as needed. ??? loratadine (Claritin) 10 mg Tablet Take 10 mg by mouth daily. ??? losartan (COZAAR) 25 mg Tablet Taking 1/2 tablet 0 No current facility-administered medications on file prior to visit. Allergy: Allergies Allergen Reactions ??? Bupropion Mood swings ??? Flexeril [Cyclobenzaprine] Anger Family History: Family History Problem Relation Age of Onset ??? Cancer Maternal Grandmother ??? Cancer Maternal Grandfather ??? Coronary Artery Disease Maternal Grandmother ??? Diabetes Maternal Grandmother ??? Diabetes Paternal Aunt ??? Heart Disease Maternal Grandmother ??? High Blood Pressure Paternal Grandfather ??? High Cholesterol Paternal Grandfather Social History: Social History Tobacco Use ??? Smoking status: Former Packs/day: 1.00 Years: 5.00 Pack years: 5.00 Types: Cigarettes Quit date: 10/01/2005 Years since quittin.0 ??? Smokeless tobacco: Never ??? Tobacco comments: quit 2006 Vaping Use ??? Vaping Use: Never used Substance Use Topics ??? Alcohol use: Yes Comment: I drink only 3-4 times throughout the year ??? Drug use: No Physical Exam BP 110/76 Pulse 70 Temp 36.8 ??C (98.3 ??F) Ht 157.5 cm (5' 2) Wt 109.8 kg (242 lb) [id number]% BMI 44.26 kg/m?? GENERAL: A+O x 3; Comfortable; Mood [...] Recent Results (from the past 24 hour(s)) Basic Metabolic Panel (non-fasting) Result Value Ref Range Glucose Lvl 92 65 - 199 mg/dL BUN 13 8 - 18 mg/dL Creatinine 1.22 (H) 0.70 - 1.20 mg/dL Sodium 138 135 - 145 mmol/L Potassium 4.8 3.5 - 5.0 mmol/L Chloride 103 98 - 107 mmol/L CO2 24 22 - 31 mmol/L Anion Gap 11 5 - 15 mmol/L Calcium 9.9 8.5 - 10.5 mg/dL Estimated GFR 54 (L) >=60 mL/min/1.73 m?? Hemoglobin A1c Result Value Ref Range Hemoglobin A1C 6.0 (H) 4.3 - 5.6 % Est Avg Gluc 126 mg/dL TSH Result Value Ref Range TSH 0.09 (L) 0.27 - 4.20 mcIU/mL ASSESSMENT / PLAN: # Thyroid cancer - microPTC 0.17 cm, right [id number] 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 TSH level is slightly suppressed at 0.09 (Target of 0.1-2.0 range), so we can taper LT4 200 mcg Mon-Sun and 0.5 tab on Sundays. To recheck lab for TSH q 3 mo standing order was placed in [facility] and [facility] lab. US studies showed a persistent [...] - Checked Tg & TSH again as abive. - To taper levothyroxine 200 mcg Mon-Sun and 0.5 tab on Sundays. Then recheck lab for TSH in 3 mo at [facility] lab. - Adjust T4 dose PRN. Goal TSH around the low end of lower limit of normal range 0.1-2.0 range. - RTC- 1 year with labs for TSH and Tg, and annual neck ultrasound as needed for thyroid ca surveillance. # PCOS and prediabetes (A1c 6.3-> 6.0% on 06/18/20-> 5.9% on 02/23/21-> 6.0% today 10/16/22) - already reduced metforminER 1500 mg/day to 1,000 mg/day per [facility] and then 500 mg daily by PCP for her insulin resistance (d/t rising Cr from 1.23 to 1.36 on 06/18/20 => Cr 1.22 on 10/16/22) - cont spironolactone 50 mg bid (unable to increase the dose due to Cr and eGFR) - cont BCPs for bone health and some night sweats at this age of 47 y.o. with some night sweats likely in eliazar-menopause as well. - already had lab for A1c and BMP as above. - to FU with PCP for A1c & Cr further. If A1c is rising with GFR >30, she can increase metforminER to 1000 mg/day RTC 6-18 months and will recheck lab and neck US at next visit. Mark Anthony Watts MD, PhD, FACE, FACP CC: Brittany Muhammad DO documented in this encounter Plan of Treatment [...] night Follow up with sleep lab at [facility] regarding treatment of sleep apnea food [...] 1/4 avocado, 1-2 tbsp dressing 1-2 cups [id number] veggies Write down in a notebook with [...] as of this encounter Results * (ABNORMAL) Basic Metabolic Panel (non-fasting) (10/16/2022 2:27 PM EST) Glucose 92 65 - 199 mg/dL [facility] Comment:Diabetes: >=200 mg/d L plus symptoms Blood Urea Nitrogen 13 8 - 18 mg/dL [facility] Creatinine 1.22(H) 0.70 - 1.20 mg/dL [facility] Sodium 138 135 - 145 mmol/L [facility] Potassium 4.8 3.5 - 5.0 mmol/L [facility] Comment: Please note: ??Patients with WBC >100,000 may have falsely elevated Potassium levels. ??For accurate Potassium quantification in these patients send serum separator tube (gold top) for subsequent determinations. ??Contact the Clinical Chemistry Laboratory if there are any questions. Chloride 103 98 - 107 mmol/L [facility] Carbon Dioxide 24 22 - 31 mmol/L [facility] Anion Gap 11 5 - 15 mmol/L [facility] Calcium 9.9 8.5 - 10.5 mg/dL [facility] Est Glomerular Filtration Rate 54(L) >=60 mL/min/1. 73 m?? [facility] Comment: This patient's estimated GFR [...] and symptoms in addition to eGFR. Blood 10/16/2022 2:27 PM EST 10/16/2022 2:38 PM EST Narrative Resulting Agency Comment Spec In Lab Mark Anthony Watts MD CHEMISTRY ORDERAB LES Performing Organization Address City/State/[facility] Co de Phone Number [facility] [place] [address] * (ABNORMAL) Hemoglobin A1c (10/16/2022 2:27 PM EST) Hemoglobin A1c 6.0(H) 4.3 - 5.6 % [facility] Comment: Reference Range: 4.3 - 5.6% [...] Mellitus, Diabetes Care 2013; 36: Suppl. 1, G76-11 Estimated Average Glucose 126 mg/dL [facility] Comment: eAG equivalents for HbA1c percentages: HbA1c(%) ?eAG(mg/dL) 6.0 ?126 6.5 ?140 7.0 ?154 7.5 ?169 8.0 ?183 8.5 ?197 9.0 ?212 9.5 ?226 10.0 ? 240 Limitations: The eAG calculation has not been validated on women, individuals below 18 years old and above 70 years old, and individuals with hemoglobinopathies. Additional resources are available on the ADA website. Rosendo LINDQUIST, Juanita J, Fidencio R, et al. ??Translating the A1C assay into estimated average glucose values. ??Diabetes Care 2008:31(8):5099-6471. Blood 10/16/2022 2:27 PM EST 10/16/2022 2:38 PM EST Narrative Resulting Agency Comment Spec In Lab Mark Anthony Watts MD CHEMISTRY ORDERAB LES [facility] [place] [address] * (ABNORMAL) Thyroglobulin (10/16/2022 2:27 PM EST) Thyroglobulin 0.1(L) 1.3 - 31.8 ng/mL [facility] Comment: INTERPRETIVE INFORMATION: Thyroglobulin, Serum or [...] Thyroglob Ab <0.9 0.0 - 4.0 IU/mL [facility] Comment: INTERPRETIVE INFORMATION: Thyroglobulin Antibody A value of 4.0 IU/mL or less indicates a negative result for thyroglobulin antibodies. The Thyroglobulin Antibody assay is being performed using the Elsy Gurwinder Access DxI method. Please note that as 06/28/22 this testing is performed at [facility]. This change is associated with a change in testing method and reference intervals. Values from other methods may not correlate with this method. Please review the results of this test in assocaition with the posted reference intervals. Thyroglobulin by LC-MS/MS Not Applicable 1.3 - 31.8 ng/mL [facility] Comment: INTERPRETIVE INFORMATION: Thyroglobulin by LC-MS/MS, Serum/Plasma Lower limit of detection for Thyroglobulin by LC-MS/MS is 0.5 ng/mL. This test was developed and its performance characteristics determined by [facility]. It has not been cleared or approved by the US Food and Drug Administration. This test was performed in a CLIA certified laboratory and is intended for clinical purposes. Performed By: [facility] [address] [place] [id number] Manager Audit: David Easley MD, PhD Blood 10/16/2022 2:27 PM EST 10/16/2022 3:22 PM EST Narrative Resulting Agency Comment Spec In Lab Mark Anthony Watts MD LAB SEND OUT JOLIE CARUSO [facility] [place] [address] * (ABNORMAL) TSH (10/16/2022 2:27 PM EST) Thyroid Stimulating Hormone 0.09(L) 0.27 - 4.20 mcIU/mL [facility] Comment: Reference Interval (mcIU/mL): Females: ??First Trimester: 0.23-3.88 ??Second Trimester: 0.22-3.90 ??Third Trimester: 0.44-4.66 Blood 10/16/2022 2:27 PM EST 10/16/2022 2:38 PM EST Narrative Resulting Agency Comment Spec In Lab Mark Anthony Watts MD CHEMISTRY ORDERAB LES [facility] [place] [address] documented in this encounter Visit Diagnoses Diagnosis Thyroid cancer Malignant neoplasm of thyroid gland Hypothyroidism, postsurgical Postsurgical hypothyroidism PCOS (polycystic ovarian syndrome) Polycystic ovaries Prediabetes Other abnormal glucose Vitamin D insufficiency Unspecified vitamin D deficiency documented in this encounter Care Teams Fabrication Mig Welder Relationship Specialty Start Date End Date Brittany Muhammad DO [address] [facility] [place] [address] PCP - General Family Medicine 01/23/19 documented as of this encounter
--- OUTSIDE RECORDS SUMMARY | 2024-05-07 02:53 | XMS_ITS | Encounter Summary ---
Author Organization [facility] Address [facility] [place] [address] Care Team Providers Care It Senior Analyst Name Role Phone MurielBrittany nieves Primary Care Provider [phone]- [phone] Reason for Visit * Reason Onset Date Comments Medication Refill 11/05/2020 Encounter Details Date Type Department Care Team (Late st Contact Info) Description 11/05/2020 Refill [facility] at [address] [address] Crystal Holley, AUTOMATION CLERK [facility] [place] [address] Insulin resistance; Class 3 severe obesity with serious comorbidity and body mass index (BMI) of 45.0 to 49.9 in adult, unspecified obesity type Social History Tobacco Use Types Packs/Day [...] night Follow up with sleep lab at [facility] regarding treatment of sleep apnea food choices [...] 1/4 avocado, 1-2 tbsp dressing 1-2 cups [id number] veggies Write down in a notebook with [...] as of this encounter Visit Diagnoses Diagnosis Insulin resistance Dysmetabolic Syndrome X Class 3 severe obesity with serious comorbidity and body mass index (BMI) of 45.0 to 49.9 in adult, unspecified obesity type documented in this encounter Care Teams It Senior Analyst Relationship Specialty Start Date End Date Brittany Muhammad DO [address] [place] [address] PCP - General Family Medicine 01/23/19 documented as of this encounter
--- OUTSIDE RECORDS SUMMARY | 2024-05-07 02:53 | XMS_ITS | Encounter Summary ---
Author Organization [facility] Address [facility] [place] [address] Care Team Providers Care Bucket Pusher Name Role Phone Brittany Muhammad Primary Care Provider [phone]- [phone] Reason for Visit * Reason Onset Date Comments Medication Refill 11/30/2022 Encounter Details Date Type Department Care Team (Late st Contact Info) Description 11/30/2022 Ref[place] [address] Mark Anthony Watts MD [facility] [place] [address] Social History Tobacco Use Types Packs/Day Years [...] 021 11:55 AM EDT) No Crystal Holley, APPLIANCE SERVICE REPRESENTATIVE Note: Continue metformin 1000mg in the evening [...] Follow up with sleep lab at [facility] regarding treatment of sleep apnea food [...] 1/4 avocado, 1-2 tbsp dressing 1-2 cups [id number] veggies Write down in a notebook with [...] on filedocumented in this encounter Care Teams Bucket Pusher Relationship Specialty Start Date End Date Brittany Muhammad DO [address] [place] [address] PCP - General Family Medicine 01/23/19 documented as of this encounter
--- OUTSIDE RECORDS SUMMARY | 2024-05-07 02:53 | XMS_ITS | Encounter Summary ---
Author Organization [place] [address] Care Team Providers Care Communications Equipment Operator Name Role Phone Sabina Brittanyjs Garcia DO Primary Care Provider +1- [phone] Encounter Details Date Type Department Care Team (Late st Contact Info) Description 01/17/2021 Telephone Weight and Wellness at [address] [phone] Kathryn Bashir, CHIO Social History Tobacco Use [...] Notes * Telephone Encounter - Kathryn Bashir CHAIR SPRINGER - 01/17/2021 1:54 PM EDT [facility] Director Energy Pre-telemedicine Visit Phone Note Genie Alejandre 1975 [x] Patient was not reached: [] No working phone [] Not able to leave message [x] Message left withvisit info/call [phone] [] ZOOM link sent if no MyDH [] Patient was reached and the following information was reviewed/obtained per protocol: [] Confirmed patient name and date of [] Confirmed address where patient will be at time of call Patient is in [] [place] [] [place] [] Other: [address] [facility] [address] [facility] [address] [] Confirmed best number to be reached [...] Yes: [] Labs/vitals requested [] labs/vitals scanned (hospital secretary) and entered (RN) [] Requested 24 hour diet recall [] Other information or concerns: Interested in [facility] Q[facility] project [] No [] Yes [...] night Follow up with sleep lab at [facility] regarding treatment of sleep apnea food [...] 1/4 avocado, 1-2 tbsp dressing 1-2 cups [id number] veggies Write down in a notebook with [...] on filedocumented in this encounter Care Teams Communications Equipment Operator Relationship Specialty Start Date End Date Brittany Muhammad DO [address] [place] [address] PCP - General Family Medicine 01/23/19 documented as of this encounter
--- OUTSIDE RECORDS SUMMARY | 2024-05-07 02:53 | XMS_ITS | Encounter Summary ---
[place] [address] Care Team Providers Care Investment Manager Name Role Phone Sabina Brittanyjs Garcia DO Primary Care Provider +1- [phone] Encounter Details Date Type Department Care Team (Latest Contact Info) Description 10/16/2022 2:20 PM EST Laboratory Appointment Lab [address] [id number] Thyroid cancer; Hypothyroidism, postsurgical; PCOS (polycystic ovarian [...] On track( 11:55 AM EDT) No Crystal Holley, CAS Note: Continue metformin 1000mg in the evening with food movement Lifestyle On track(07/15/2 021 11:55 AM EDT) [...] night Follow up with sleep lab at [facility] regarding treatment of sleep apnea food [...] 1/4 avocado, 1-2 tbsp dressing 1-2 cups [id number] veggies Write down in a notebook with [...] Name Priority Date/Time Associated Diagnosis Comments HC PCH THYROID AB ARUP Routine 10/16/2022 2:27 PM EST Thyroid cancer Hypothyroidism, postsurgical PCOS (polycystic ovarian syndrome) Prediabetes Vitamin D insufficiency HC THYROID STIMULATING HORMONE, SERUM Routine 10/16/2022 2:27 PM EST Thyroid cancer Hypothyroidism, postsurgical PCOS (polycystic ovarian syndrome) Prediabetes Vitamin D insufficiency HC HEMOGLOBIN A1C Routine 10/16/2022 2:2 7 PM EST Thyroid cancer Hypothyroidism, postsurgical PCOS (polycystic ovarian syndrome) Prediabetes Vitamin D insufficiency BASIC METABOLIC PANEL Routine 10/16/2022 2:27 PM EST Thyroid cancer Hypothyroidism, postsurgical PCOS (polycystic ovarian syndrome) Prediabetes Vitamin D insufficiency documented in this encounter Results * (ABNORMAL) TSH (10/16/2022 2:27 PM EST) Thyroid Stimulating Hormone 0.09(L) 0.27 - 4.20 mcIU/mL [facility] Comment: Reference Interval (mcIU/mL): Females: ??First Trimester: 0.23-3.88 ??Second Trimester: 0.22-3.90 ??Third Trimester: 0.44-4.66 Blood 10/16/2022 2:27 PM EST 10/16/2022 2:38 PM EST Narrative Resulting Agency Comment Spec In Lab Mark Anthony Watts MD CHEMISTRY ORDERAB LES [facility] [place] [address] [place] [address] * (ABNORMAL) Thyroglobulin (10/16/2022 2:27 PM EST) Thyroglobulin 0.1(L) 1.3 - 31.8 ng/mL [facility] Comment: INTERPRETIVE INFORMATION: Thyroglobulin, Serum or [...] Thyroglob Ab <0.9 0.0 - 4.0 IU/mL [facility] Comment: INTERPRETIVE INFORMATION: Thyroglobulin Antibody A value of 4.0 IU/mL or less indicates a negative result for thyroglobulin antibodies. The Thyroglobulin Antibody assay is being performed using the Elsy Gurwinder Access DxI method. Please note that as 06/28/22 this testing is performed at [facility]. This change is associated with a change in testing method and reference intervals. Values from other methods may not correlate with this method. Please review the results of this test in assocaition with the posted reference intervals. Thyroglobulin by LC-MS/MS Not Applicable 1.3 - 31.8 ng/mL [facility] Comment: INTERPRETIVE INFORMATION: Thyroglobulin by LC-MS/MS, Serum/Plasma Lower limit of detection for Thyroglobulin by LC-MS/MS is 0.5 ng/mL. This test was developed and its performance characteristics determined by [facility]. It has not been cleared or approved by the [place] Food and Drug Administration. This test was performed in a CLIA certified laboratory and is intended for clinical purposes. Performed By: [facility] [address] [place] [id number] Family Specialist: David Easley MD, PhD Blood 10/16/2022 2:27 PM EST 10/16/2022 3:22 PM EST Narrative Resulting Agency Comment Spec In Lab Mark Anthony Watts MD LAB SEND OUT JOLIE ANDRESCANDELARIA [facility] [place] [address] * (ABNORMAL) Hemoglobin A1c (10/16/2022 2:27 PM EST) Hemoglobin A1c 6.0(H) 4.3 - 5.6 % [facility] Comment: Reference Range: 4.3 - 5.6% [...] Mellitus, Diabetes Care 2013; 36: Suppl. 1, G77-64 Estimated Average Glucose 126 mg/dL [facility] Comment: eAG equivalents for HbA1c percentages: [...] into estimated average glucose values. ??Diabetes Care 2008:31(8):4927-9589. Blood 10/16/2022 2:27 PM EST 10/16/2022 2:38 PM EST Narrative Resulting Agency Comment Spec In Lab Mark Anthony Watts MD CHEMISTRY ORDERAB LES [facility] [place] [address] * (ABNORMAL) Basic Metabolic Panel (non-fasting) (10/16/2022 2:27 PM EST) Glucose 92 65 - 199 mg/dL [facility] Comment:Diabetes: >=200 mg/d L plus symptoms Blood Urea Nitrogen 13 8 - 18 mg/dL [facility] Creatinine 1.22(H) 0.70 - 1.20 mg/dL [facility] Sodium 138 135 - 145 mmol/L [facility] Potassium 4.8 3.5 - 5.0 mmol/L [facility] Comment: Please note: ??Patients with WBC >100,000 may have falsely elevated Potassium levels. ??For accurate Potassium quantification in these patients send serum separator tube (gold top) for subsequent determinations. ??Contact the Clinical Chemistry Laboratory if there are any questions. Chloride 103 98 - 107 mmol/L [facility] Carbon Dioxide 24 22 - 31 mmol/L [facility] Anion Gap 11 5 - 15 mmol/L [facility] Calcium 9.9 8.5 - 10.5 mg/dL [facility] Est Glomerular Filtration Rate 54(L) >=60 mL/min/1. 73 m?? [facility] Comment: This patient's estimated GFR was [...] MD CHEMISTRY ORDERAB LES Performing Organization Address City/State/[facility] Co de Phone Number [facility] [place] [address] documented in this encounter Visit Diagnoses Diagnosis Thyroid cancer Malignant neoplasm of thyroid gland Hypothyroidism, postsurgical Postsurgical hypothyroidism PCOS (polycystic ovarian syndrome) Polycystic ovaries Prediabetes Other abnormal glucose Vitamin D insufficiency Unspecified vitamin D deficiency documented in this encounter Care Teams Investment Manager Relationship Specialty Start Date End Date Brittany Muhammad DO [address] [place] [address] PCP - General Family Medicine 01/23/19 documented as of this encounter
--- OUTSIDE RECORDS SUMMARY | 2024-05-07 02:53 | XMS_ITS | Encounter Summary ---
Author Organization [facility] [place] [address] Care Team Providers Care School Photographer Name Role Phone Sabina Brittanyjs Garcia DO Primary Care Provider +1- [phone] Encounter Details Date Type Department Care Team (Late st Contact Info) Description 10/07/2020 5:30 PM EST Notes Only Weight and Wellness at [address] [phone] Social History Tobacco Use Types Packs/Day Years [...] - Inhaled Oxygen Concentration - - Weight 107.8 kg (237 lb 9.6 oz) 10/07/2020 1:00 PM EST Height 157.5 cm (5' 2.01) 10/07/2020 1:00 PM ES T Body Mass Index 43.45 10/07/2020 1:00 PM EST documented in this encounter Plan [...] Follow up with sleep lab at [facility] regarding treatment of sleep apnea food [...] 1/4 avocado, 1-2 tbsp dressing 1-2 cups [id number] veggies Write down in a notebook with [...] on filedocumented in this encounter Care Teams School Photographer Relationship Specialty Start Date End Date Brittany Muhammad DO [address] [place] [address] PCP - General Family Medicine 01/23/19 documented as of this encounter
--- OUTSIDE RECORDS SUMMARY | 2024-05-07 02:53 | XMS_ITS | Encounter Summary ---
Author Organization [facility] Address [facility] [place] [address] Care Team Providers Care Conservation Engineer Name Role Phone SabinaAsmitajs Garcia DO Primary Care Provider +1- [phone] Reason for Visit * Reason Onset Date Comments Medication Refill 07/13/2021 Encounter Details Date Type Department Care Team (Late st Contact Info) Description 07/13/2021 Refill Weight and Wellness at [address] [address] Crystal Holley, EQUIPMENT OR MACHINERY CLEANER [facility] [address] [facility] [place] [address] Class 3 severe obesity with serious comorbidity [...] encounter Miscellaneous Notes * Telephone Encounter - Joan Guzman MD - 07/14/2021 7:02 PM EDT Please advise patient that further refills will be provided at a follow up visit. documented in this encounter Plan of Treatment [...] night Follow up with sleep lab at [facility] regarding treatment of sleep [...] 1/4 avocado, 1-2 tbsp dressing 1-2 cups [id number] veggies Write down in a notebook with [...] glucose documented in this encounter Care Teams Conservation Engineer Relationship Specialty Start Date End Date Brittany Muhammad DO [address] [place] [address] PCP - General Family Medicine 01/23/19 documented as of this encounter
--- OUTSIDE RECORDS SUMMARY | 2024-05-07 02:53 | XMS_ITS | Encounter Summary ---
[place] [address] Care Team Providers Care Rental Clerk Name Role Phone Britatny Muhammad DO Primary Care Provider +1- [phone] Reason for Referral * Consultation (Routine) - Closed Specialty Diagnoses / Procedures Referred By Cash reese Referred To Contact Hematology and Oncology Diagnoses Other abnormality of red blood cells Brittany Muhammad DO [address] [place] [address] [facility] [address] [place] [address] Referral ID Status Reason Start Date Expiration Date V isits Requested Visits Authorized [id number] Closed Consult, Test & Treat PCP Updated and/or Approved 11/01/2022 11/01/2023 6 6 Encounter Details Date Type Department Care Team (Latest Contact Info) Description 11/01/2022 Transcribe Orders eDH Incoming Referrals [phone] Brittany Muhammad DO [address] [place], [place] [id number] Other abnormality of red blood cells Social History Tobacco Use Types Packs/Day Years [...] Associated Diagnoses Orde r Schedule Referral to Hematology and Oncology Outpatient Referral Routine Other abnormality of red blood cells Ordered: 11/01/2022 documented as of this encounter Goals Goal [...] 1/4 avocado, 1-2 tbsp dressing 1-2 cups [id number] veggies Write down in a notebook with [...] at home regardless of classes Lifestyle No aKthy Perez RD documented as of this encounter Visit Diagnoses Diagnosis Other abnormality of red blood cells documented in this encounter Care Teams Rental Clerk Relationship Specialty Start Date End Date Brittany Muhammad DO [address] [place] [address] PCP - General Family Medicine 01/23/19 documented as of this encounter
--- OUTSIDE RECORDS SUMMARY | 2024-05-07 02:53 | XMS_ITS | Encounter Summary ---
Author Organization [facility] Address [facility] [place] [address] Care Team Providers Care Timber Bucker Name Role Phone MurielBrittany nieves Primary Care Provider +1- [phone] Reason for Visit * Reason Comments Medication Refill Encounter Details Date Type Department Care Team (Late st Contact Info) Description 11/05/2020 Refill Weight and Wellness at [facility] [address] [place] [address] Crystal Holley, WOOD POLISHER [facility] [address] [facility] [address] Insulin resistance; Class 3 severe obesity with [...] night Follow up with sleep lab at [facility] regarding treatment of sleep apnea food [...] 1/4 avocado, 1-2 tbsp dressing 1-2 cups [id number] veggies Write down in a notebook with [...] type documented in this encounter Care Teams Timber Bucker Relationship Specialty Start Date End Date Brittany Muhammad DO [address] [place] [address] PCP - General Family Medicine 01/23/19 documented as of this encounter
--- OUTSIDE RECORDS SUMMARY | 2024-05-07 02:53 | XMS_ITS | Encounter Summary ---
Author Organization [facility] Address [facility] [place] [address] Care Team Providers Care Muck Boss Name Role Phone MurielmagdysilvianoBrittany reynolds Primary Care Provider +1- [phone] Reason for Visit * Reason Onset Date Comments Medication Refill 01/10/2021 Encounter Details Date Type Department Care Team (Late st Contact Info) Description 01/10/2021 Refill Weight and Wellness at [address] [address] Crystal Holley, PARIMUTUEL TICKET CHECKER [facility] DR [facility] [place] [address] Insulin resistance; Class 3 severe obesity with [...] 1/4 avocado, 1-2 tbsp dressing 1-2 cups [id number] veggies Write down in a notebook with [...] type documented in this encounter Care Teams Muck Boss Relationship Specialty Start Date End Date Brittany Muhammad DO [address] [place] [address] PCP - General Family Medicine 01/23/19 documented as of this encounter
--- OUTSIDE RECORDS SUMMARY | 2024-05-07 02:53 | XMS_ITS | Encounter Summary ---
Author Organization [facility] Address [facility] [place] [address] Care Team Providers Care Supervisor Air Conditioning Installer Name Role Phone RubioAsmita reynoldsjs Garcai DO Primary Care Provider +1- [phone] Encounter Details Date Type Department Care Team (Latest Contact Info) Description 03/18/2021 2:00 PM EDT Office [place] [address] Mark Anthony Watts MD [facility] [place] [address] Thyroid cancer; Hypothyroidism, postsurgical; Menstrual periods irregular; PCOS (polycystic ovarian syndrome); Prediabetes; Vitamin D [...] Sign Reading Time Taken Comments Blood Pressure 147/98 03/18/2021 1:53 PM EDT Pulse 92 03/18/2021 1:53 PM EDT Temperature - - Respiratory Rate - - Oxygen Saturation 99% 03/18/2021 1:53 PM EDT Inhaled Oxygen Concentration - - Weight 110.2 kg (243 lb) 03/18/2021 1:53 PM EDT Height 157.5 cm (5' 2) 03/18/2021 1:53 PM EDT Body Mass Index 44.45 03/18/2021 1:53 PM EDT documented in this encounter Patient Instructions * Patient Instructions* Mark Anthony Watts MD - 03/18/2021 2:00 PM EDT Outside lab on 02/23/21 were ok with better A1c 5.9%, TSH 1.1, normal CBC and CMP. Recent Results (from the past 24 hour(s)) Fine Needle Aspirate Thyroglobulin Result Value Ref Range FNA Site left midline anterior neck lymph node for Tg wash out to r/o LN mets from papillary thyroid ca TSH Result Value Ref Range TSH 0.40 0.27 - 4.20 mcIU/mL Follicle Stimulating Hormone Result Value Ref Range FSH 0.5 mlU/ML Vitamin D, 25-Hydroxy Result Value Ref Range 25-OH Vit D Total 48 21 - 100 ng/mL 25-OH Vit D Interp Sufficient US studies showed a persistent small pre-tracheal/Dephian LN in anterior neck of 0.8 cm so we performed FNA for Tg wash-out at the visit today. Plan: - You may need excision biopsy of this small central neck LN (very superficial) if Tg wash-out is not informative. It is only 0.4 cm depth so hopefully we have enough to measure Tg level from the needle wash-out today. - To follow-up with Dr. Liu for possible excisional biopsy if needed. - will let you know Tg results in the blood and needle wash-out samples soon. MARK ANTHONY WATTS MD documented in this encounter Progress Notes * Mark Anthony Watts MD - 03/18/2021 2:00 PM EDT Endocrine Clinic Name: Genie Alejandre : 1975 PCP: Britatny Muhammad DO Provided by: Mark Anthony Watts MD, PhD, FACE, FACP Date: 06/22/20 Reason for visit: Endocrine visit: Thyroid cancer, PCOS and prediabetes (A1c 6% on 06/18/20). Pt used to see Dr. Khanna and me at initial Endocrine visit on 01/24/20 and was transferred under my care directly since 06/22/20. She still has residual Tg at a low level of 0.6 and recent US at [facility] on 10/05/20 showed a midline hypoechoic lesion of 0.8x0.5x0.7 cm => will recheck US and do FNA washout Tg if possible. HPI: Genie Alejandre is a 45 y.o. female who presents for follow-up of thyroid cancer diagnosed / treated with total thyroidectomy on 04/07/19 (no SARAH) with residual Tg 0.6 after the surgery - stable Tg 0.6 in Jul 2019 and 03/06/20 and no Tg level was done at outside lab as ordered during the interim so lexawill recheck at our lab today. Thyroid cancer summary 01/23/19 Palpable and enlarging [...] 42), Ca 9.6 10/05/20 : US at [facility] showed a midline hypoechoic lesion of 0.8x0.5x0.7 cm 12/15/20: TSH 0.34, 25vitamin D 30.3 borderline low (normal 30-100) 02/23/21: TSH 1.1, A1c 5.9%, no Tg was done 03/18/21: TSH 0.4, 25vitamin D 48, FSH 0.5 (+supervisor prop making periods on BCPs with night sweats and some migraine). Tg-pending today US showed a midline hypoechoic lesion of 0.8x0.4x0.6 cm (central LN without hilum) => FNA for Tgwash-out at the visit today & she may need an excisional biopsy of this small superficial LN. Recent Results (from the past 24 hour(s)) Fine Needle Aspirate Thyroglobulin Result Value Ref Range FNA Site left midline anterior neck lymph node for Tg wash out to r/o LN mets from papillary thyroid ca TSH Result Value Ref Range TSH 0.40 0.27 - 4.20 mcIU/mL Follicle Stimulating Hormone Result Value Ref Range FSH 0.5 mlU/ML Vitamin D, 25-Hydroxy Result Value Ref Range 25-OH Vit D Total 48 21 - 100 ng/mL 25-OH Vit D Interp Sufficient Patient has not noted any changes in the neck, could not feel the midline lump by herself, and is feeling well without any specific complaints. [facility] and has lost wt from 257 to 247 lbs over 6-9 months initiallyand now stable at 243 lbs today. Symptoms of thyroid hormone excess / deficiency: Heat intolerance: No Cold intolerance: No Diarrhea: No Constipation: No Weight loss / gain: Yes, down 11 lbs during Oct 2019-Jun 2020 and then down 4 lbs over the past 9 months Anxiety: No Jitteriness: No Temors: No Palpitations: No Lab Results Component Value Date/Time TSH 56.60 (H) 03/02/2020 12:59 PM TSH 1.95 07/11/2019 01:51 PM TSH 0.08 (L) 05/22/2019 12:17 PM TSH 2.85 01/23/2019 01:11 PM THYROGLB 0.6 03/02/2020 12:59 PM THYROGLB 0.6 07/11/2019 01:51 PM THGAB <20.0 03/02/2020 12:59 PM THGAB [...] Psoriasis L40.9 ??? Hypothyroid E03.9 ??? Depression F32.9 ??? CARLOS (obstructive sleep apnea) G47.33 ??? [...] to Visit Medication Sig Dispense Refill ??? azelastine (ASTELIN) 137 mcg (0.1 %) Aerosol, [place] 1 spray by Nasal route daily. Use [...] 3 ??? fluticasone propionate (FLONASE) 50 mcg/actuation [place], Suspension INSTILL 1 SPRAY INTO EACH NOSTRIL BID ??? Ventolin HFA 90 mcg/actuation HFA Aerosol Inhaler Inhale 90 mcg into the lungs as needed. ??? clonazePAM (KlonoPIN) 0.5 mg Tablet, Rapid [...] SUMAtriptan (IMITREX) 50 mg Tablet 0 ??? losartan (COZAAR) 25 mg Tablet Taking [...] History Tobacco Use ??? Smoking status: Former Smoker Packs/day: 1.00 Years: 5.00 Pack years: 5.00 Types: Cigarettes Quit date: 10/01/2005 Years since quittin.4 ??? Smokeless tobacco: Never Used ??? Tobacco comment: quit 2006 Vaping Use ??? Vaping Use: Never used Substance Use Topics ??? Alcohol use: Yes Comment: I drink only 3-4 times throughout the year ??? Drug use: No Physical Exam BP (!) 147/98 Pulse 92 Ht 157.5 cm (5' 2) Wt 110.2 kg (243 lb) SpO2 99% BMI 44.45 kg/m?? GENERAL: A+O x 3; Comfortable; Mood and affect appropriate. EYES: Sclera clear, no conjunctival injection; No stare, lid lag or proptosis. NECK: No mass noticable. SKIN: Skin is normal in appearance. No rashes noted. NEURO: Cranial nerves grossly intact; non-focal; No tremor EXT: Gait and station normal; No thyroid acropachy or pretibial myedema. Lab after thyroidectomy since 04/07/19 Results for DOLLY, GENIE Amaya ( ) Ref. Range 05/22/2019 12:17 07/11/2019 [...] 5.9%, TSH 1.1, normal CBC and CMP. THYROID / NECK ULTRASOUND: Date: 03/18/2021 Indication: Thyroid cancer Lab Results Component Value Date/Time TSH 0.40 03/18/2021 03:13 PM TSH 56.60 (H) 03/02/2020 12:59 PM TSH 1.95 07/11/2019 01:51 PM TSH 0.08 (L) 05/22/2019 12:17 PM TSH 2.85 01/23/2019 01:11 PM THYROGLB 0.6 03/02/2020 12:59 PM THYROGLB 0.6 07/11/2019 01:51 PM THGAB <20.0 03/02/2020 12:59 PM THGAB <20.0 07/11/2019 01:51 PM Real time images of the neck were obtained using a [employer] Flex Focus 400 US machine and an HFL38/15-6 broadband linear array transducer. All measurements are given as Longitudinal x Anterior-Posterior (A-P) x Transverse Right Lobe: The right lobe is absent Left Lobe: The left lobe is absent Central neck: There is a small hypoechoic lesion in anterior neck off midline to the left (Level - pretracheal, paratracheal and likely a Delphian LN in central compartment) which measures 0.8x0.4x0.6 cm (previously 0,8x0.5x0.7 cm on 10/05/20 at [facility]). Lateral neck: Examination of bilateral levels II to V does not reveal any masses or morphologically abnormal lymph nodes. Impression: Post total thyroidectomy There is a superficial pre-tracheal central LN of 0.8 cm seen on US today without normal hilum and no abnormal micro-calcification or cystic changes. Rec: FNA for Tg wash-out of this small central LN to r/o LN mets in the setting of PTC (micro-carcinoma) s/p surgery since 04/07/19 with a period of hypothyroid during late 2018 until March 2020. Monitor TSH and Tg today Mark Anthony Watts MD, PhD, FACE, FACP PROCEDURE: THYROID FNA Indication: left midline anterior neck lesion likely lymph node of 0.8x0.6x0.4 cm Date: 03/18/21 Informed consent was obtained after a discussion of the nature of the procedure, its risks, benefits and possible alternatives. Immediately prior to the start of the procedure a time out was taken: - The patient's identity was confirmed using two identifiers - The intended procedure, patient positioning and availability of all required equipment was also confirmed. - The proper site(s)/side(s) of the nodule(s) was/were confirmed by visualization with ultrasound. The biopsy site(s) on the patient's neck was/were prepared using isopropyl alchohol. 1 pass of a 25g needle were performed at each site. The needle placement was ultrasound guided. The needle was visualized in the nodule(s) in each pass. The procedure was well tolerated by the patient. The patient was given a thyroid FNA post-procedure handout upon completion. 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 US studies showed a persistent small pre-tracheal/Dephian LN in anterior neck of 0.8 cm so we performed FNA for Tg wash-out at the visit today. Plan: - She may need excision biopsy of this small central neck LN (very superficial) if Tg wash-out is not informative. It is 0.4 cm dept so hopefully we have enough to measure Tg level from the needle wash-out today. - To follow-up with Dr. Liu for possible excisional biopsy if needed. - will let her know Tg results in the blood and needle wash-out samples soon. - Tg & TSH again today. - To cont levothyroxine 200 mcg daily - Adjust T4 dose PRN. Goal TSH around the low end of lower limit of normal range 0.1-2.0 range. - RTC- 1 year with labs for TSH and Tg, and annual neck ultrasound as needed for thyroid ca surveillance. # PCOS and prediabetes (A1c 6.3-> 6.0% on 06/18/20-> 5.9% on 02/23/21) - already reduced metforminER 1500 mg/day to 1,000 mg/day per C for her insulin resistance (d/t rising Cr from 1.23 to 1.36 on 06/18/20) - cont spironolactone 50 mg bid (unable to increase the dose due to Cr and eGFR) - cont BCPs for bone health and some night sweats at this age of 45 likely in eliazar-menopause as well. - recheck lab for A1c and CMP as ordered by [facility]. Mark Anthony Watts MD, PhD, FACE, FACP CC: DO Olive Soto MD. * Mark Anthony Watts MD - 03/18/2021 2:00 PM EDT Good news for undetectable thyroid tumor marker now in the blood test (was detectable at low level 0.6 prior 2x). Still pending for Tg washout from needle biopsy on the midline node soon. MARK ANTHONY WATTS MD * Mark Anthony Watts MD - 03/18/2021 2:00 PM EDT Good news for undetectable thyroid tumor marker both in the blood test (was detectable at low level0.6 prior 2x) and in the washout fluid from needle biopsy of the midline lymph node. No need for surgery and will continue to monitor next time (6-12 months). Congrats! MARK ANTHONY WATTS MD documented in this encounter Plan of Treatment [...] night Follow up with sleep lab at [facility] regarding treatment of sleep apnea food [...] 1/4 avocado, 1-2 tbsp dressing 1-2 cups [id number] veggies Write down in a notebook with [...] etc. Throughout the week finding a motivation imssael for a rainy day activity Lifestyle Kathy Rodriguez RD Note: Will send list of yoga videos to help find one that is a good fit Keep in mind it might take a little time :-) weigh weekly at home regardless of classes Lifestyle Kathy Rodriguez RD documented as of this encounter Procedures Procedure Name Priority Date/Time Associated Diagnosis Comments HC VITAMIN D TOTAL-25 HYDROXY Routine 03/18/2021 3:13 PM EDT Hypothyroidism, postsurgical PCOS (polycystic ovarian syndrome) Prediabetes Vitamin D insufficiency HC VENIPUNCTURE Routine 03/18/2021 3:13 PM EDT Thyroid cancer Hypothyroidism, postsurgical HC THYROID STIMULATING HORMONE, SERUM Routine 03/18/2021 3:13 PM EDT Thyroid cancer Hypothyroidism, postsurgical HC FSH ASSAY, SERUM Routine 03/18/2021 3 :13 PM EDT Menstrual periods irregular HC PCH THYROGLOBULIN, FNA Routine 03/18/2021 2:29 PM EDT Thyroid cancer documented in this encounter Results * Vitamin D, 25-Hydroxy (03/18/2021 3:13 PM EDT) Vitamin D Total 25 OH 48 21 - 100 ng/mL [facility] Vit D Interp Sufficient [facility] Blood 03/18/2021 3:13 PM EDT 03/18/2021 3:41 PM EDT Narrative Resulting Agency Comment Spec In Lab Mark Anthony Watts MD CHEMISTRY ORDERAB LES [facility] [place] [address] * Follicle Stimulating Hormone (03/18/2021 3:13 PM EDT) Follicle Stimulating Hormone 0.5 mlU/ML [facility] Comment: Reference Ranges Male: ? 1.5-12.4 mIU/mL Female ?? Follicular: ?3.5-12.5 mIU/mL ?? Ovulation: ? 4.7-21.5 mIU/mL ?? Luteal: ?1.7-7.7 mIU/mL ?? Postmenopausal: ?25.8-134.8 mIU/mL Blood 03/18/2021 3:13 PM EDT 03/18/2021 3:41 PM EDT Narrative Resulting Agency Comment Spec In Lab Mark Anthony Watts MD CHEMISTRY ORDERAB LES Performing Organization Address City/[facility]/ZIP Co de Phone Number [facility] [place] [address] * TSH (03/18/2021 3:13 PM EDT) Thyroid Stimulating Hormone 0.40 0.27 - 4.20 mcIU/mL [facility] Blood 03/18/2021 3:13 PM EDT 03/18/2021 3:41 PM EDT Narrative Resulting Agency Comment Spec In Lab Mark Anthony Watts MD CHEMISTRY ORDERAB LES Performing Organization Address [facility] Co de Phone Number [facility] [place] [address] * Thyroglobulin (03/18/2021 3:13 PM EDT) Thyroglobulin <0.2 <=54.9 ng/mL [facility] Thyroglob Ab <20.0 0.0 - 40.0 IU/mL [facility] Blood 03/18/2021 3:13 PM EDT 03/21/2021 7:22 AM EDT Narrative Resulting Agency Comment Spec In Lab Mark Anthony Watts MD LAB SEND OUT ORDE RABLES Performing Organization Address City/[facility]/ZIP Co de Phone Number [facility] [place] [address] * Fine Needle Aspirate Thyroglobulin (03/18/2021 2:29 PM EDT) FNA Thyroglobulin (QST) <0.1 ng/mL [facility] Comment: Negative: < or = 1.0 ng/mL Indeterminate: 1.1 - 10.0 ng/mL Consistent with thyroid tissue or metastatic thyroid cancer: >10.0 ng/mL This test was performed using the Elsy Gurwinder Chemiluminescent method. Values obtained from different assay methods cannot be used interchangeably. Thyroglobulin levels, regardless of value, should not be interpreted as absolute evidence of the presence or absence of disease. Test performed by: [facility] [address] [place] [address] FNA Site (QST) left midline anterior neck lymph node for Tg wash out to r/o LN mets from papillary thyroid ca [facility] Fine Needle Aspirate 03/18/2021 2:29 PM EDT 03/18/2021 4:09 PM EDT Mark Anthony Watts MD LAB SEND OUT JOLIE CARUSO [facility] Organization Address City/State/ZIP Co de Phone Number [facility] [place] [address] documented in this encounter Visit Diagnoses Diagnosis Thyroid cancer Malignant neoplasm of thyroid gland Hypothyroidism, postsurgical Postsurgical hypothyroidism Menstrual periods irregular Irregular menstrual cycle PCOS (polycystic ovarian syndrome) Polycystic ovaries Prediabetes Other abnormal glucose Vitamin D insufficiency Unspecified vitamin D deficiency documented in this encounter Care Teams Supervisor Air Conditioning Installer Relationship Specialty Start Date End Date Brittany Muhammad DO [address] [place] [address] PCP - General Family Medicine 01/23/19 documented as of this encounter
--- OUTSIDE RECORDS SUMMARY | 2024-05-07 02:53 | XMS_ITS | Encounter Summary ---
Author Organization [facility] [address] Care Team Providers Care Job Placement Counselor Name Role Phone Sabina Brittanyjs Garcia DO Primary Care Provider +1- [phone] Encounter Details Date Type Department Care Team (Late st Contact Info) Description 11/11/2020 5:30 PM EST Notes Only Weight and Wellness at [address] [address] Social History Tobacco Use Types Packs/Day Years [...] - Inhaled Oxygen Concentration - - Weight 107.2 kg (236 lb 4.8 oz) 11/11/2020 5:00 PM EST Height 157.5 cm (5' 2.01) 11/11/2020 5:00 PM ES T Body Mass Index 43.21 11/11/2020 5:00 PM EST documented in this encounter [...] night Follow up with sleep lab at [facility] regarding treatment of sleep apnea food choices [...] 1/4 avocado, 1-2 tbsp dressing 1-2 cups [id number] veggies Write down in a notebook with [...] on filedocumented in this encounter Care Teams Job Placement Counselor Relationship Specialty Start Date End Date Brittany Muhammad DO [address] [place] [address] PCP - General Family Medicine 01/23/19 documented as of this encounter
--- OUTSIDE RECORDS SUMMARY | 2024-05-07 02:53 | XMS_ITS | Encounter Summary ---
Author Organization [facility] [place] [address] Care Team Providers Care Lvn Name Role Phone Sabina Brittanyjs Garcia DO Primary Care Provider +1- [phone] Encounter Details Date Type Department Care Team (Late st Contact Info) Description 11/25/2020 5:30 PM EST Notes Only Weight and Wellness at [address] [address] Arrived Social History Tobacco Use Types Packs/Day [...] - Inhaled Oxygen Concentration - - Weight 106.7 kg (235 lb 3.2 oz) 11/25/2020 5:00 PM EST Height 157.5 cm (5' 2.01) 11/25/2020 5:00 PM ES T Body Mass Index 43.01 11/25/2020 5:00 PM EST documented in this encounter [...] 1/4 avocado, 1-2 tbsp dressing 1-2 cups [id number] veggies Write down in a notebook with [...] on filedocumented in this encounter Care Teams Lvn Relationship Specialty Start Date End Date Brittany Muhammad DO [address] [place] [place] [address] PCP - General Family Medicine 01/23/19 documented as of this encounter
--- OUTSIDE RECORDS SUMMARY | 2024-05-07 02:53 | XMS_ITS | Encounter Summary ---
Author Organization [facility] Address [facility] [place] [address] Care Team Providers Care Skip Load Driver Name Role Phone Brittany Muhammad DO Primary Care Provider +1- [phone] Reason for Visit * Reason Comments Medication Refill Encounter Details Date Type Department Care Team (Late st Contact Info) Description 07/26/2021 Refill Weight and Wellness at [facility] [address] [place] [address] Joan Guzman MD [facility] [address] Class 3 severe obesity with serious comorbidity [...] up with sleep lab at [facility] regarding treatment of sleep apnea food choices [...] 1/4 avocado, 1-2 tbsp dressing 1-2 cups [id number] veggies Write down in a notebook with [...] glucose documented in this encounter Care Teams Skip Load Driver Relationship Specialty Start Date End Date Brittany Muhammad DO [address] [place] [address] PCP - General Family Medicine 01/23/19 documented as of this encounter
--- OUTSIDE RECORDS SUMMARY | 2024-05-07 02:53 | XMS_ITS | Encounter Summary ---
Author Organization [facility] [place] [address] Care Team Providers Care Rail Transportation Tabeler Name Role Phone MurielmagdysilvianoBrittany reynolds Jose BARRETO Primary Care Provider +1- [phone] Encounter Details Date Type Department Care Team (Late st Contact Info) Description 02/18/2021 12:00 PM EDT Notes Only Weight and Wellness at [place] [address] [place] [address] Arrived Social History Tobacco Use Types Packs/Day [...] night Follow up with sleep lab at [facility] regarding treatment of sleep apnea [...] 1/4 avocado, 1-2 tbsp dressing 1-2 cups [id number] veggies Write down in a notebook with [...] on filedocumented in this encounter Care Teams Rail Transportation Tabeler Relationship Specialty Start Date End Date Brittany Muhammad DO [address] [place] [address] PCP - General Family Medicine 01/23/19 documented as of this encounter
--- OUTSIDE RECORDS SUMMARY | 2024-05-07 02:53 | XMS_ITS | Encounter Summary ---
Author Organization [facility] Address [facility] [place] [address] Care Team Providers Care Property Accountant Name Role Phone Brittany Muhammad DO Primary Care Provider +1- [phone] Reason for Visit * Reason Comments Medication Refill Encounter Details Date Type Department Care Team (Late st Contact Info) Description 06/16/2021 [place] [address] Mark Anthony Watts MD [facility] [place] [address] Social History Tobacco Use Types Packs/Day Years [...] 021 11:55 AM EDT) No Crystal Holley, TUNE UP MECHANIC Note: Continue metformin 1000mg in the evening [...] night Follow up with sleep lab at [facility] regarding treatment of sleep [...] 1/4 avocado, 1-2 tbsp dressing 1-2 cups [id number] veggies Write down in a notebook with [...] on filedocumented in this encounter Care Teams Property Accountant Relationship Specialty Start Date End Date Brittany Muhammad DO [address] [place] [address] PCP - General Family Medicine 01/23/19 documented as of this encounter
--- OUTSIDE RECORDS SUMMARY | 2024-05-07 02:53 | XMS_ITS | Encounter Summary ---
Author Organization [facility] [place] [address] Care Team Providers Care Metal Engineering Process Worker Name Role Phone Sabina Brittanyjs Garcia DO Primary Care Provider +1- [phone] Encounter Details Date Type Department Care Team (Late st Contact Info) Description 11/04/2020 5:30 PM EST Notes Only Weight and Wellness at [address] [address] Arrived Social History Tobacco Use Types Packs/Day [...] - Inhaled Oxygen Concentration - - Weight 108.1 kg (238 lb 6.4 oz) 11/04/2020 5:00 PM EST Height 157.5 cm (5' 2.01) 11/04/2020 5:00 PM ES T Body Mass Index 43.59 11/04/2020 5:00 PM EST documented in this encounter [...] up with sleep lab at [facility] regarding treatment of sleep apnea [...] 1/4 avocado, 1-2 tbsp dressing 1-2 cups [id number] veggies Write down in a notebook with [...] on filedocumented in this encounter Care Teams Metal Engineering Process Worker Relationship Specialty Start Date End Date Brittany Muhammad DO [address] [place] [address] PCP - General Family Medicine 01/23/19 documented as of this encounter
--- OUTSIDE RECORDS SUMMARY | 2024-05-07 02:53 | XMS_ITS | Encounter Summary ---
Author Organization Formerly [facility] Address [facility] [place] [address] Care Team Providers Care Bindery Operator Name Role Phone RubioBrittany reynolds Jose DO Primary Care Provider +1- [phone] Encounter Details Date Type Department Care Team (Latest Contact Info) Description 12/29/2022 Travel Social History Tobacco Use Types Packs/Day [...] place to sleep or slept in a penitentiary (including now)? No 12/29/2022 Sex and Gender [...] night Follow up with sleep lab at [facility] regarding treatment of sleep [...] 1/4 avocado, 1-2 tbsp dressing 1-2 cups [id number] veggies Write down in a notebook with [...] on filedocumented in this encounter Care Teams Bindery Operator Relationship Specialty Start Date End Date Brittany Muhammad DO [address] [place] [address] PCP - General Family Medicine 01/23/19 documented as of this encounter
--- OUTSIDE RECORDS SUMMARY | 2024-05-07 02:53 | XMS_ITS | Encounter Summary ---
Author Organization [facility]ly [facility] Address [facility] [place] [address] Care Team Providers Care Office Director Name Role Phone RubioBrittany reynolds Jose BARRETO Primary Care Provider +1- [phone] Encounter Details Date Type Department Care Team (Late st Contact Info) Description 03/20/2022 10:30 AM EDT Office [place] [address] Mark Anthony Watts MD [facility] [place] [address] Thyroid cancer; Hypothyroidism, postsurgical Social History Tobacco Use Types Packs/Day Years [...] Sign Reading Time Taken Comments Blood Pressure 137/90 03/20/2022 10:18 AM EDT Pulse 84 03/20/2022 10:18 AM EDT Temperature 37 ??C (98.6 ??F) 03/20/2022 10:18 AM EDT Respiratory Rate 16 03/20/2022 10:18 AM EDT Oxygen Saturation 98% 03/20/2022 10:18 AM EDT Inhaled Oxygen Concentration - - Weight 109 kg (240 lb 3.2 oz) 03/20/2022 10:18 A M EDT Height 157.5 cm (5' 2) 03/20/2022 10:18 AM EDT Body Mass Index 43.93 03/20/2022 10:18 AM EDT documented in this encounter Patient Instructions * Patient Instructions* Mark Anthony Watts MD - 03/20/2022 1:19 PM EDT Recent Results (from the past 24 hour(s)) TSH Result Value Ref Range TSH 0.29 0.27 - 4.20 mcIU/mL ASSESSMENT / PLAN: # Thyroid cancer - microPTC 0.17 cm, right [id number] 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 TSH level is now at target of 0.1-2.0 range (was 0.08-56.6 range prior). US studies showed a persistent but stable small pre-tracheal/Dephian LN in anterior neck of 0.8 cm and recent FNA was negative for Tg wash-out on 03/18/21. Plan: - She may need excision biopsy or repeat FNA if this central neck LN (very superficial) is enlarging in the future. - will let [...] 1500 mg/day to 1,000 mg/day per [facility] for her insulin resistance (d/t rising Cr from 1.23 to 1.36 on 06/18/20) - cont spironolactone 50 mg bid (unable to increase the dose due to Cr and eGFR) - cont BCPs for bone health and some night sweats at this age of 45 likely in eliazar-menopause as well. - recheck lab for A1c and CMP as ordered by [facility]. RTC 6-12 months. Mark Anthony Watts MD, PhD, FACE, FACP documented in this encounter Progress Notes * Mark Anthony Watts MD - 03/20/2022 10:30 AM EDT THYROID / NECK ULTRASOUND: Date: 03/20/22 Indication: Thyroid cancer Comparison: 03/18/20 Lab Results Component Value Date/Time TSH 0.40 [...] of the neck were obtained using a Socratic Flex Focus 400 US machine and an [...] in central compartment) which measures 0.8x0.4x0.6 cm (was 0.8x0.4x0.6 cm on 03/18/20 and 0.8x0.5x0.7 cm on 10/05/20 at [facility]). Lateral neck: Examination of bilateral levels II to V showed a few lateral neck lymph nodes on the right, the larger of which measures 0.96x0.3x0.[address] LN was very thin and small with benign appearance. Impression: Post total thyroidectomy There is a superficial pre-tracheal central LN of 0.8 cm seen on US without normal hilum and a tinymicro-calcification but no changes over the past year. (*previously she had negative FNA for Tg [...] low level of 0.5-0.6 and US at [facility] 10/05/20 showed a midline hypoechoic lesion of 0.8x0.5x0.7 cm => 0.8x0.4x0.6 cm at our visit on 03/18/21 when we did FNA washout andit was negative for Tg. Today US (03/20/22) showed exactly the same size 0.8x0.4x0.6 cm after 1-1.5 year reassuring but will cont to monitor and repeat FNA if it's enlarging or rising Tg. HPI: Genie Estrada is a 46 y.o. female who presents for follow-up of [...] 40), Ca 9.6 10/05/20 : US at [facility] showed a midline hypoechoic lesion of 0.8x0.5x0.7 cm 12/15/20: TSH 0.34, 25vitamin D 30.3 borderline low (normal 30-100) 02/23/21: TSH 1.1, A1c 5.9%, no Tg was done 03/18/21: TSH 0.4, 25vitamin D 48, FSH 0.5 (+private advisor periods on BCPs with night sweats and some migraine). Tg<0.2 US showed a midline hypoechoic lesion of 0.8x0.4x0.6 cm (central LN without hilum) => FNA for Tgwash-out = negatice & she may need an excisional biopsy or repeat FNA if it's growing in size 03/20/22: pending for lab for Tg today = 0.1 (which is still<0.2 same as previously) for thyroid tumor marker which is good news Recent Results (from the past 24 hour(s)) TSH Result Value Ref Range TSH 0.29 0.27 - 4.20 mcIU/mL Patient has not noted any changes in the neck, could not feel the midline lump by herself, and is feeling well without any specific complaints. [facility] and has lost wt from 257 to 247 lbs and now 243 lbs over the past year. Symptoms of thyroid hormone excess / deficiency: Heat intolerance: No Cold intolerance: No Diarrhea: No Constipation: No Weight loss / gain: Yes, down 11 lbs during Oct 2019-Jun 2020 and then down 4+3 lbs over the past 12 months Anxiety: No Jitteriness: No Temors: No Palpitations: No Lab Results Component Value Date/Time TSH 0.40 [...] ??? cetirizine (ZyrTEC) 10 mg Tablet ??? Victoza 3-Bob 0.6 mg/0.1 mL (18 mg/3 mL) Pen Injector ??? guanFACINE (Tenex) 1 mg Tablet ??? [...] BY MOUTH DAILY 90 tablet 3 ??? dextroamphetamine-amphetamine (Adderall) 10 mg Tablet Take [...] SUMAtriptan (IMITREX) 50 mg Tablet 0 ??? BLOOD SUGAR DIAGNOSTIC, DISC MISC by NOT APPLICABLE route. ??? desonide (DESOWEN) 0.05 % Lotion Apply topically. ??? FLUTICASONE PROPION-SALMETEROL INHL Inhale into the lungs. ??? blood sugar diagnostic (GLUCOMETER DEX TEST SENSORS INVT) ??? lancets Misc by NOT APPLICABLE route. ??? methylphenidate ER (Metadate) 20 mg Tablet Sustained Release Take by mouth. ??? methylphenidate (METADATE ER) 10 mg Tablet Sustained Release Take by mouth. ??? azelastine (ASTELIN) 137 mcg (0.1 %) Aerosol, Hostetter 1 spray by Nasal route daily. Use in each nostril as directed ??? fluticasone propionate (FLONASE) 50 mcg/actuation Hostetter, Suspension INSTILL 1 SPRAY INTO EACH NOSTRIL [...] ??? Drug use: No Physical Exam BP 137/90 (BP Location (NBP): Right arm, Patient Position: Sitting, BP Cuff Sizes: Large Adult (32-43 cm)) Pulse 84 Temp 37 ??C (98.6 ??F) (Temporal) Resp 16 Ht 157.5 cm (5' 2) Wt 109 kg (240 lb 3.2 oz) SpO2 98% BMI 43.93 kg/m?? GENERAL: A+O x 3; Comfortable; Mood [...] 5.9%, TSH 1.1, normal CBC and CMP. 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 TSH level is now at target of 0.1-2.0 range (was 0.08-56.6 range prior). US studies showed a persistent but stable small pre-tracheal/Dephian LN in anterior neck of 0.8 cm and recent FNA was negative for Tg wash-out on 03/18/21. Plan: - She may need excision biopsy or repeat FNA if this central neck LN (very superficial) is enlarging in the future. - will let [...] 1500 mg/day to 1,000 mg/day per [facility] for her insulin resistance (d/t rising Cr from 1.23 to 1.36 on 06/18/20) - cont spironolactone 50 mg bid (unable to increase the dose due to Cr and eGFR) - cont BCPs for bone health and some night sweats at this age of 45 likely in eliazar-menopause as well. - recheck lab for A1c and CMP as ordered by [facility]. RTC 6-12 months. Mark Anthony Watts MD, PhD, FACE, [...] night Follow up with sleep lab at [facility] regarding treatment of sleep apnea [...] 1/4 avocado, 1-2 tbsp dressing 1-2 cups [id number] veggies Write down in a notebook with [...] Name Priority Date/Time Associated Diagnosis Comments HC VENIPUNCTURE Routine 03/20/2022 11:33 AM EDT Thyroid cancer HC THYROID STIMULATING HORMONE, SERUM Routine 03/20/2022 11:33 AM EDT Thyroid cancer Hypothyroidism, postsurgical documented in this encounter Results * Thyroglobulin (03/20/2022 11:33 AM EDT) Thyroglobulin <0.2 <=54.9 ng/mL [facility] Comment: This result was generated using a Siemens Immulite immunoassay. ??Results obtained from other methods or manufacturers cannot be used interchangeably with this method. Thyroglob Ab <20.0 0.0 - 40.0 IU/mL [facility] Comment: This result was generated using a Siemens Immulite immunoassay. ??Results obtained from other methods or manufacturers cannot be used interchangeably with this method. Blood 03/20/2022 11:3 3 AM EDT 03/21/2022 7:28 AM EDT Narrative Resulting Agency Comment Spec In Lab Mark Anthony Watts MD LAB SEND OUT JOLIE Nicholson Organization Address City/State/ZIP Co de Phone Number [facility] [place] [address] * TSH (03/20/2022 11:33 AM EDT) Thyroid Stimulating Hormone 0.29 0.27 - 4.20 mcIU/mL [facility] Comment: Reference Interval (mcIU/mL): Females: ??First Trimester: 0.23-3.88 ??Second Trimester: 0.22-3.90 ??Third Trimester: 0.44-4.66 Blood 03/20/2022 11:3 3 AM EDT 03/20/2022 11:40 AM EDT Narrative Resulting Agency Comment Spec In Lab Mark Anthony Watts MD CHEMISTRY ORDERAB LES [facility] [place] [address] documented in this encounter Visit Diagnoses Diagnosis Thyroid cancer Malignant neoplasm of thyroid gland Hypothyroidism, postsurgical Postsurgical hypothyroidism documented in this encounter Care Teams Office Director Relationship Specialty Start Date End Date Brittany Muhammad DO [address] [facility] [place] [address] PCP - General Family Medicine 01/23/19 documented as of this encounter
--- OUTSIDE RECORDS SUMMARY | 2024-05-07 02:53 | XMS_ITS | Encounter Summary ---
Author Organization [facility] [place] [address] Care Team Providers Care Ambulatory Care Nurse Name Role Phone SabinaBrittany Jose BARRETO Primary Care Provider +1- [phone] Encounter Details Date Type Department Care Team (Late st Contact Info) Description 12/16/2020 5:30 PM EDT Notes Only Weight and Wellness at [address] [address] Arrived Social History Tobacco Use Types Packs/Day [...] night Follow up with sleep lab at [facility] regarding treatment of sleep apnea [...] 1/4 avocado, 1-2 tbsp dressing 1-2 cups [id number] veggies Write down in a notebook with [...] on filedocumented in this encounter Care Teams Ambulatory Care Nurse Relationship Specialty Start Date End Date Brittany Muhammad DO [address] [place] [address] PCP - General Family Medicine 01/23/19 documented as of this encounter
--- OUTSIDE RECORDS SUMMARY | 2024-05-07 02:53 | XMS_ITS | Encounter Summary ---
Author Organization [facility] [place] [address] Care Team Providers Care Poultry Picking Machine Tender Name Role Phone Sabina Brittanyjs Garcia DO Primary Care Provider +1- [phone] Encounter Details Date Type Department Care Team (Late st Contact Info) Description 12/02/2020 5:30 PM EST Notes Only Weight and Wellness at [address] [address] Social History Tobacco Use Types Packs/Day Years [...] - - Weight 107.1 kg (236 lb 1.6 oz) 12/02/2020 5:00 PM EST Height 157.5 cm (5' 2.01) 12/02/2020 5:00 PM ES T Body Mass Index 43.17 12/02/2020 5:00 PM EST documented in this encounter [...] 1/4 avocado, 1-2 tbsp dressing 1-2 cups [id number] veggies Write down in a notebook with [...] on filedocumented in this encounter Care Teams Poultry Picking Machine Tender Relationship Specialty Start Date End Date Brittany Muhammad DO [address] [place] [address] PCP - General Family Medicine 01/23/19 documented as of this encounter
--- OUTSIDE RECORDS SUMMARY | 2024-05-07 02:53 | XMS_ITS | Encounter Summary ---
Author Organization [facility] [place] [address] Care Team Providers Care Pump Runner Name Role Phone SabinaAsmitajs Garcia DO Primary Care Provider +1- [phone] Encounter Details Date Type Department Care Team (Late st Contact Info) Description 12/30/2020 5:30 PM EDT Notes Only Weight and Wellness at [place] [address] [place] [address] Arrived Social History Tobacco Use Types Packs/Day [...] - Inhaled Oxygen Concentration - - Weight 105.4 kg (232 lb 6.4 oz) 12/30/2020 5:00 PM EDT Height 157.5 cm (5' 2.01) 12/30/2020 5:00 PM ED T Body Mass Index 42.5 12/30/2020 5:00 PM EDT documented in this encounter Plan of Treatment [...] night Follow up with sleep lab at [facility] regarding treatment of sleep apnea [...] 1/4 avocado, 1-2 tbsp dressing 1-2 cups [id number] veggies Write down in a notebook with [...] on filedocumented in this encounter Care Teams Pump Runner Relationship Specialty Start Date End Date Brittany Muhammad DO [address] [place] [address] PCP - General Family Medicine 01/23/19 documented as of this encounter
--- OUTSIDE RECORDS SUMMARY | 2024-05-07 02:53 | XMS_ITS | Encounter Summary ---
Author Organization [facility] Address [facility] [place] [address] Care Team Providers Care Clinical Resource Manager Name Role Phone MurielBrittany nieves Primary Care Provider +1- [phone] Reason for Visit * Reason Comments Medication Refill Encounter Details Date Type Department Care Team (Late st Contact Info) Description 09/14/2020 Refill Weight and Wellness at [facility] [address] [place] [address] Crystal Holley, MACHINE TOOL DESIGNER [facility] [address] AMEL[facility] [place] [address] Insulin resistance; Class 3 severe obesity with [...] night Follow up with sleep lab at [facility] regarding treatment of sleep apnea [...] 1/4 avocado, 1-2 tbsp dressing 1-2 cups [id number] veggies Write down in a notebook with [...] type documented in this encounter Care Teams Clinical Resource Manager Relationship Specialty Start Date End Date Brittany Muhammad DO [address] [place] [place] [address] PCP - General Family Medicine 01/23/19 documented as of this encounter
--- OUTSIDE RECORDS SUMMARY | 2024-05-07 02:53 | XMS_ITS | Encounter Summary ---
Author Organization [facility] Address [facility] Prash[address] [place] [address] Care Team Providers Care Presser Machine Name Role Phone MurielmagdysilvianoBrittany reynolds Primary Care Provider +1- [phone] Encounter Details Date Type Department Care Team (Latest Contact Info) Description 10/16/2022 Travel Social History Tobacco Use Types Packs/Day [...] Follow up with sleep lab at [facility] regarding treatment of sleep apnea food [...] 1/4 avocado, 1-2 tbsp dressing 1-2 cups [id number] veggies Write down in a notebook with [...] on filedocumented in this encounter Care Teams Presser Machine Relationship Specialty Start Date End Date Brittany Muhammad DO [address] [place] [place] [address] PCP - General Family Medicine 01/23/19 documented as of this encounter
--- OUTSIDE RECORDS SUMMARY | 2024-05-07 02:53 | XMS_ITS | Encounter Summary ---
Author Organization [facility] Address [facility] [place] [address] Care Team Providers Care Electronic Design Engineer Name Role Phone Brittany Muhammad Primary Care Provider +1- [phone] Reason for Visit * Reason Comments Medication Refill Encounter Details Date Type Department Care Team (Late st Contact Info) Description 02/19/2021 Refill Weight and Wellness at [facility] [address] [place] [address] Crystal Holley, BUILDING CONSULTANT [facility] DR AMEL[place] [address] Class 3 severe obesity with serious comorbidity [...] Follow up with sleep lab at [facility] regarding treatment of sleep apnea food choices / tracking goals Lifestyle On track( 11:17 AM EST) No Kathy Peerz RD Note: Direct substitution to meat: Tofu [...] 1/4 avocado, 1-2 tbsp dressing 1-2 cups [id number] veggies Write down in a notebook with [...] glucose documented in this encounter Care Teams Electronic Design Engineer Relationship Specialty Start Date End Date Brittany Muhammad DO [address] [place] [address] PCP - General Family Medicine 01/23/19 documented as of this encounter
--- OUTSIDE RECORDS SUMMARY | 2024-05-07 02:53 | XMS_ITS | Encounter Summary ---
Author Organization [facility] Address [facility] [place] [address] Care Team Providers Care Heel Attacher Wood Name Role Phone MurielmagdysilvianoBrittany reynolds Primary Care Provider +1- [phone] Encounter Details Date Type Department Care Team (Late st Contact Info) Description 09/15/2020 Abstract Weight and Wellness at [address] [address] Crystal Holley APRN [facility] [address] AMEL[place] [address] Social History Tobacco Use Types Packs/Day Years [...] 1/4 avocado, 1-2 tbsp dressing 1-2 cups [id number] veggies Write down in a notebook with [...] on filedocumented in this encounter Care Teams Heel Attacher Wood Relationship Specialty Start Date End Date Brittany Muhammad DO [address] [place] [address] PCP - General Family Medicine 01/23/19 documented as of this encounter
--- OUTSIDE RECORDS SUMMARY | 2024-05-07 02:53 | XMS_ITS | Encounter Summary ---
Author Organization [facility] [place] [address] Care Team Providers Care Awning Frame Maker Name Role Phone Brittany Muhammad DO Primary Care Provider +1- [phone] Reason for Visit * Reason Onset Date Comments Appointment 08/29/2021 Encounter Details Date Type Department Care Team ([facility] Contact Info) Description 08/29/2021 Telephone Weight and Wellness at [address] [address] Apple Teixeira Appointment Social History [...] * Telephone Encounter - Apple Teixeira - 08/29/2021 4:49 PM EST Med refill follow up with rossy. documented in this encounter Plan of Treatment Not on file documented as of this encounter Goals Goal Patient Goal Type Associated Problems Recent Progress Patient-Stated? Author medication Lifestyle On track( 11:55 AM EDT) Rossy Wells APRN Note: Continue metformin 1000mg in the evening with food movement Lifestyle On track( 11:55 AM EDT) Rossy Wells APRN Note: Continue what might help [...] management Lifestyle On track( 11:55 AM EDT) Rossy Wells APRN Note: Continue working with therapist to manage stress Deep breathing before bedtime Find some activities/hobbies you enjoy to keep your mind and body busy sleep Lifestyle Not on track( 3:19 PM EDT) Rossy Wells APRN Note: Try to stay up during the day and be active, will make it more likely you will sleep at night Deep breathing/meditation at night Follow up with sleep lab at [facility] regarding treatment of sleep apnea food choices [...] 1/4 avocado, 1-2 tbsp dressing 1-2 cups [id number] veggies Write down in a notebook with [...] on filedocumented in this encounter Care Teams Awning Frame Maker Relationship Specialty Start Date End Date Brittany Muhammad DO [address] [place] [address] PCP - General Family Medicine 01/23/19 documented as of this encounter
--- OUTSIDE RECORDS SUMMARY | 2024-05-07 02:53 | XMS_ITS | Encounter Summary ---
Author Organization [facility] Address [facility] [place] [address] Care Team Providers Care Smelter Operator Name Role Phone MurielBrittany nieves Primary Care Provider +1- [phone] Reason for Visit * Reason Comments Medication Refill Encounter Details Date Type Department Care Team (Late st Contact Info) Description 11/07/2020 Refill Weight and Wellness at [facility] [address] [place] [address] Crystal Holley, POWER PRESS TENDER [facility] DR AMELIE [place] [address] Insulin resistance; Class 3 severe obesity with [...] night Follow up with sleep lab at [facility] regarding treatment of sleep apnea food choices [...] 1/4 avocado, 1-2 tbsp dressing 1-2 cups [id number] veggies Write down in a notebook with [...] type documented in this encounter Care Teams Smelter Operator Relationship Specialty Start Date End Date Brittany Muhammad DO [address] [place] [address] PCP - General Family Medicine 01/23/19 documented as of this encounter
--- OUTSIDE RECORDS SUMMARY | 2024-05-07 02:54 | XMS_ITS | Encounter Summary ---
Author Organization [facility] [place] [address] Care Team Providers Care Multigraph Operator Name Role Phone Sabina Brittanyjs Garcia DO Primary Care Provider +1- [phone] Encounter Details Date Type Department Care Team (Latest Contact Info) Description 07/14/2020 1:30 PM EDT TH Visit (TeleHealth) Weight and Wellness at [address] [address] Leonel Marroquin Class 3 severe obesity with serious comorbidity [...] PM EDT documented as of this encounter Patient Instructions * Patient Instructions* Leonel Marroquin - 07/14/2020 1:30 PM EDT It was good tot alk with you Genie. I will send you some meal planning hand-outs and a couple of recipes for you to play with. Don't be afraid to modify or change up the ingredients! Leonel Ravi documented in this encounter Progress Notes * Leonel Marroquin - 07/14/2020 1:30 PM EDT [facility] Health Skin Specialist Phone Visit - Follow up 07/14/2020 [facility] provider: Crystal Holley [ x ] I confirmed that I am speaking with Genie Alejandre who is doing this phone visit from home [ x ] Patient verbally consents to this telephone visit and understands that this visit may be billed, similar to a clinic office visit. Current goals Goals ??? finding a motivation missael for a rainy day activity Will send list of yoga videos to help find one that is a good fit Keep in mind it might take a little time :-) ??? food choices / tracking goals Direct substitution to meat: Tofu and tempeh (1/4 plate, can also add grains) cominations foods that go in the grain/protein part of the plate (half a plate combined, also add1/2 plate of non starchy veggies): lentils, beans, peas, quinoa Healthy fats: Avocado, oils (salad dressing with olive oil, canola oil, cooking use sesame oil or peanut oil for flavor), nuts (pumpkin seeds, pecan, walnut, etc0 Remember fat, fiber, and protein are the full-feeling, blood-sugar balancing, weight loss promotingproperties (not just protein) For example, a grain bowl: 1/2 cup whole grain 1/2 cup beans or lentils 1/4 avocado, 1-2 tbsp dressing 1-2 cups [id number] veggies Write down in a notebook with [...] with different sauces, etc. Throughout the week ??? medication We will start metformin to target insulin resistance, titrate up as tolerated. Take with food We can consider adding medication if you continue to struggle with cravings-we can consider naltrexone in the evening Continue weaning down on gabapentin ??? movement Continue what might help make the walks more regular and have a bad weather alternative- will send yoga sheet with some online videos to investigate and see if you can find one that works for you. Consider adding some sort of strength training ??? sleep Try to stay up during the day and be active, will make it more likely you will sleep at night Deep breathing/meditation at night Follow up with sleep lab at [facility] regarding treatment of sleep apnea ??? stress management Continue working with therapist to manage stress Deep breathing before bedtime Find some activities/hobbies you enjoy to keep your mind and body busy ??? weigh weekly at home regardless of classes Goals Addressed None [ x ] previous goals were reviewed with the patient Goal setting What would you like to take away from this session today? Still interested in meal planning tips. What are the biggest challenges you face right now? My taste has changed, I don't like chicken anymore, it's challenging to get enough protein. I don't feel hungry often. What are the action(s) you are ready to take now? Try batch cooking. What have you accomplished since our last meeting? (state small/lg successes, wins, new breakthroughs/perspectives) Losing weight. Doing resistance band exercises. What is your current level of physical activity? Is this a change?walk my dog, recovering from a surgery right now though. What are you willing to start doing to add more movement into your day/week? Start taking my dog out more. Scheduling [x ] Health head girls golf coach call in [ 2 ] weeks Also needs the following scheduled (racing secretary tasked to call) [ ] visit [ ] MD/SECTION HOUSEKEEPER visit [ ] Is interested in classes once offered: [ ] culinary [ ] peer I provided care to the patient today via telephone call, 30 minutes telephone visit was spent in discussion with patient on above. Leonel Marroquin, Health Skin Specialist documented in this encounter Plan of Treatment [...] night Follow up with sleep lab at [facility] regarding treatment of sleep [...] 1/4 avocado, 1-2 tbsp dressing 1-2 cups [id number] veggies Write down in a notebook with [...] type documented in this encounter Care Teams Multigraph Operator Relationship Specialty Start Date End Date Brittany Muhammad DO [address] [place] [address] PCP - General Family Medicine 01/23/19 documented as of this encounter
--- OUTSIDE RECORDS SUMMARY | 2024-05-07 02:54 | XMS_ITS | Encounter Summary ---
Author Organization [facility] [place] [address] Care Team Providers Care Sap Crm Developer Name Role Phone Sabina Brittanyjs Garcia DO Primary Care Provider +1- [phone] Encounter Details Date Type Department Care Team (Late st Contact Info) Description 07/02/2020 Telephone Weight and Wellness at [facility] [address] [place] [phone] Cindy Zee Social History Tobacco Use Types Packs/Day Years [...] night Follow up with sleep lab at [facility] regarding treatment of sleep [...] 1/4 avocado, 1-2 tbsp dressing 1-2 cups [id number] veggies Write down in a notebook with [...] it might take a little time :-) documented as of this encounter Visit Diagnoses Not on filedocumented in this encounter Care Teams Sap Crm Developer Relationship Specialty Start Date End Date Brittany Muhammad DO [address] [place] [address] PCP - General Family Medicine 01/23/19 documented as of this encounter
--- OUTSIDE RECORDS SUMMARY | 2024-05-07 02:54 | XMS_ITS | Encounter Summary ---
Author Organization [facility] [place] [address] Care Team Providers Care Rn Ambulatory Name Role Phone MurielmagdysilvianoBrittany reynlods Primary Care Provider +1- [phone] Encounter Details Date Type Department Care Team (Late st Contact Info) Description 03/12/2020 3:45 PM EDT Notes Only Weight and Wellness at [place] [address] [place] [address] Social History Tobacco Use Types Packs/Day Years [...] 1/4 avocado, 1-2 tbsp dressing 1-2 cups [id number] veggies Write down in a notebook with [...] with different sauces, etc. Throughout the week documented as of this encounter Visit Diagnoses Not on filedocumented in this encounter Care Teams Rn Ambulatory Relationship Specialty Start Date End Date Brittany Muhammad DO [address] [place] [address] PCP - General Family Medicine 01/23/19 documented as of this encounter
--- OUTSIDE RECORDS SUMMARY | 2024-05-07 02:54 | XMS_ITS | Encounter Summary ---
Author Organization [facility] [place] [address] Care Team Providers Care Director Digital Name Role Phone Sabina Brittanyjs Garcia DO Primary Care Provider +1- [phone] Encounter Details Date Type Department Care Team (Late st Contact Info) Description 07/01/2020 Telephone Weight and Wellness at [facility] [address] [place] [phone] Cindy Zee Social History Tobacco Use Types [...] with sleep lab at [facility] regarding treatment of sleep apnea [...] 1/4 avocado, 1-2 tbsp dressing 1-2 cups [id number] veggies Write down in a notebook with [...] on filedocumented in this encounter Care Teams Director Digital Relationship Specialty Start Date End Date Brittany Muhammad DO [address] [place] [address] PCP - General Family Medicine 01/23/19 documented as of this encounter
--- OUTSIDE RECORDS SUMMARY | 2024-05-07 02:54 | XMS_ITS | Encounter Summary ---
Author Organization [facility] [place] [address] Care Team Providers Care Release Specialist Name Role Phone Sabina Brittanyjs Garcia DO Primary Care Provider +1- [phone] Encounter Details Date Type Department Care Team (Late st Contact Info) Description 05/03/2020 Telephone Weight and Wellness at [facility] [address] [place] [phone] Cindy Zee Social History Tobacco Use Types [...] night Follow up with sleep lab at [facility] regarding treatment of sleep apnea food [...] 1/4 avocado, 1-2 tbsp dressing 1-2 cups [id number] veggies Write down in a notebook with [...] on filedocumented in this encounter Care Teams Release Specialist Relationship Specialty Start Date End Date Brittany Muhammad DO [address] [place] [address] PCP - General Family Medicine 01/23/19 documented as of this encounter
--- OUTSIDE RECORDS SUMMARY | 2024-05-07 02:54 | XMS_ITS | Encounter Summary ---
Author Organization [facility] [place] [address] Care Team Providers Care Field Applications Specialist Name Role Phone Sabina Brittanyjs Garcia DO Primary Care Provider +1- [phone] Encounter Details Date Type Department Care Team (Latest Contact Info) Description 03/30/2020 3:30 PM EDT TH Visit (TeleHealth) Weight and Wellness at [address] [address] Leonel Marroquin Class 3 severe obesity with [...] Instructions * Patient Instructions* Leonel Marroquin - 03/30/2020 3:30 PM EDT It was good to talk with you Genie. You're doing great work with slowing down and learning to recognize hunger and satiety cues. Building self-awareness is such an important part of the weight loss journey! You are going to make some time to sit down and plan out 2 breakfasts for the next couple ofweeks. I will talk with you soon. Rigoy! Leonel documented in this encounter Progress Notes * Leonel Marroquin - 03/30/2020 3:30 PM EDT [facility] Health Hoop Machine Operator Phone Visit - NEW 03/30/2020 [facility] provider: Crystal Holley IV: Leonel Marroquin [ x ] I confirmed that I am speaking with Genietiffanie Alejandre who is doing this phone visit from home [x ] Patient verbally consents to this telephone visit and understands that this visit may be billed, similar to a clinic office visit. [facility] Program Information: [x ] I reviewed Genie L Sessions'sknowledge/understanding of the [facility] program and pathways. Comments: wants to wait a bit before she does too much. [ x ] I reviewed Genie L Sessions's expectations of Program: knowledge, support Current goals (set by provider in initial visit) Goals ??? food choices / tracking goals - at breakfast, at least need to have a protein (egg, cheese, meat, Romansh yogurt)- extra credit if you add fruits/veggies, OK to have a Grain choice (Congolese muffin / toast, etc.) - at your second / third meal, try to always have a veggie (can also have fruit is fine) and alwaysa protein, also OK to have a grain choice Good ballpark is 60-90 grams protein a day, less than 100-150 grams carbs. (avoid added sugars). You don't need to try to limit your fat Probably 1300 calories is a place to start but there might be a range- reach out to me in [facility] in aweek or 2 and let me know how the calories are going (calories on average and put in a few days of intake) Your hunger and fullness signals will determine what amount of food is appropriate- keep up the great work noticing this better Work on doing some meal planning ??? meal timing Aim to start eating by 10am (but if you've had to go back to sleep, eat when you get up- 12:30 at the latest). This meal should eventually be your more substantial meal (but this might take a while to get used to) If you're first meal is later (12-1p) and you're not hungry, just eat again at dinner time. If you're hungry, have a snack around 3, stick with dinner around 6/6:30p ??? medication We will start metformin to target insulin resistance, titrate up as tolerated. Take with food We can consider adding medication if you continue to struggle with cravings-we can consider naltrexone in the evening Continue weaning down on gabapentin ??? movement Continue regular dog walks Consider adding some sort of strength training ??? sleep Try to stay up during the day and be active, will make it more likely you will sleep at night Deep breathing/meditation at night Follow up with sleep lab at [facility] regarding treatment of sleep apnea ??? stress management Continue working with therapist to manage stress Deep breathing before bedtime Find some activities/hobbies you enjoy to keep your mind and body busy [ x ] previous goals were reviewed with the patient What has been going well for you? Noticing hunger and satiety cues more. Eating more mindfully, slower. What are the biggest challenges you face right now? Meal planning has been a challenge. I usually just grab and go. What are the action(s) you are ready to take now? Continue learning, establish routines, be more consistent with exercise Goal setting What is your current level of physical activity: walk my dog What are you willing to start doing to add more movement into your day/week? Take longer walks. Addin resistance band exercises a few days during the week. Plan 2 breakfasts this week. HC Assessment of Stage of Change: Overall health: preparation/action Physical Activity: contemplationpreparation HC Recommendations: Patient would be a candidate for [ ] HLP [ x ] individual health coaching Scheduling [ x ] Health agile coach call in [ 2 ] weeks Also needs the following scheduled (escrow secretary tasked to call) [ ] visit [ ] MD/BIOMASS BOILER OPERATOR visit [ ] Is interested in classes once offered: [ ] culinary [ ] peer I provided care to the patient today via telephone call, 30 minutes telephone visit was spent in discussion with patient on above. Leonel Marroquin, Health Hoop Machine Operator documented in this encounter Plan of Treatment [...] night Follow up with sleep lab at [facility] regarding treatment of sleep apnea [...] 1/4 avocado, 1-2 tbsp dressing 1-2 cups [id number] veggies Write down in a notebook with [...] type documented in this encounter Care Teams Field Applications Specialist Relationship Specialty Start Date End Date Brittany Muhammad DO [address] [place] [address] PCP - General Family Medicine 01/23/19 documented as of this encounter
--- OUTSIDE RECORDS SUMMARY | 2024-05-07 02:54 | XMS_ITS | Encounter Summary ---
Author Organization [facility] Address [facility] [place] [address] Care Team Providers Care Supervisor Baking Name Role Phone Brittany Muhammad DO Primary Care Provider +1- [phone] Encounter Details Date Type Department Care Team (Late st Contact Info) Description 06/18/2020 [place] [phone] Dee Ontiveros, [facility] Social History Tobacco Use Types Packs/Day Years [...] encounter Miscellaneous Notes * Telephone Encounter - Dee Ontiveros, PENDING SALE TO [facility] - 06/18/2020 1:25 PM EDT 5C Bridge Welder Pre-Telemedicine Phone Note [x] Patient not reached [] Patient reached and the following information was reviewed/obtained per protocol: [] Confirmed patient name and date of [] Confirmed location of patient - TeleVisit is taking place in [] [place] [] [place] [] [place] [] [place] [] Confirmed Pt has MyDH [] If not on myDH, working on signing up for myDH [] If no MyDH is made, how is Dr sending Pt the zoom link for video [] By Cell phone [] By E-mail [] If Pt is a phone visit how is Dr contacting Pt [] Home phone [] Cell phone [] Other number [] Reviewed patient medications [] Documented self-reported vitals: [] Weight: [] Height: [x] Other information or concerns LM asking Genie to call me back documented in this encounter Plan of Treatment [...] night Follow up with sleep lab at [facility] regarding treatment of sleep apnea food choices [...] 1/4 avocado, 1-2 tbsp dressing 1-2 cups [id number] veggies Write down in a notebook with [...] filedocumented in this encounter Care Teams Supervisor Baking Relationship Specialty Start Date End Date Brittany Muhammad DO [address] [place] [address] PCP - General Family Medicine 01/23/19 documented as of this encounter
--- OUTSIDE RECORDS SUMMARY | 2024-05-07 02:54 | XMS_ITS | Encounter Summary ---
Author Organization [facility] Address [facility] [place] [address] Care Team Providers Care Installation Manager Name Role Phone MurielBrittany nieves Primary Care Provider +1- [phone] Reason for Visit * Reason Comments Medication Refill Encounter Details Date Type Department Care Team (Late st Contact Info) Description 09/13/2020 Refill Weight and Wellness at [facility] [address] [place] [address] Crystal Holley, PLUMBING DRAFTER [facility] DR AMELIE [place] [address] Insulin resistance; Class 3 severe obesity with [...] 1/4 avocado, 1-2 tbsp dressing 1-2 cups [id number] veggies Write down in a notebook with [...] type documented in this encounter Care Teams Installation Manager Relationship Specialty Start Date End Date Brittany Muhammad DO [address] [place] [place] [address] PCP - General Family Medicine 01/23/19 documented as of this encounter
--- OUTSIDE RECORDS SUMMARY | 2024-05-07 02:54 | XMS_ITS | Encounter Summary ---
Author Organization [facility] [place] [address] Care Team Providers Care Bottling Equipment Sales Representative Name Role Phone Sabina Brittanyjs Garcia DO Primary Care Provider +1- [phone] Encounter Details Date Type Department Care Team (Late st Contact Info) Description 03/29/2020 Telephone Weight and Wellness at [facility] [address] [place] [phone] Cindy Zee Social History Tobacco Use Types [...] 1/4 avocado, 1-2 tbsp dressing 1-2 cups [id number] veggies Write down in a notebook with [...] on filedocumented in this encounter Care Teams Bottling Equipment Sales Representative Relationship Specialty Start Date End Date Brittany Muhammad DO [address] [place] [address] PCP - General Family Medicine 01/23/19 documented as of this encounter
--- OUTSIDE RECORDS SUMMARY | 2024-05-07 02:54 | XMS_ITS | Encounter Summary ---
Author Organization Formerly [facility] Address [facility] [place] [address] Care Team Providers Care Diathermy Equipment Repairer Name Role Phone MurielBrittany nieves Primary Care Provider [phone] Reason for Visit * Reason Comments Follow-up weight management/ob esity Encounter Details Date Type Department Care Team (Latest Contact Info) Description 06/01/2020 10:30 AM EDT TH Visit (TeleHealth) Weight and Wellness at [address] [id number] Crystal Holley, REGIONAL GEODETIC ADVISOR [facility] [place] [address] Decreased renal function; Prediabetes; Insulin resistance; Class 3 severe obesity with [...] - Inhaled Oxygen Concentration - - Weight 111.6 kg (246 lb) 06/01/2020 11:00 AM EDT Height 157.5 cm (5' 2.01) 06/01/2020 11:00 AM E DT Body Mass Index 44.98 06/01/2020 11:00 AM EDT documented in this encounter Patient Instructions * Patient Instructions* Crystal Holley, REGIONAL GEODETIC ADVISOR - 06/01/2020 10:30 AM EDT From our visit today: good to talk to you today Genie, really focus on planning for the next few weeks, that will help you avoid making choices driven by cravings. Try just 3 meals at at time! Let me know how you are doing. Keep the metformin where it is for now. I will send lab orders to recheck renal function in about 2 weeks. Let me know if you have any questions. Crystal Goals Addressed This Visit's Progress ??? food choices / tracking goals On track - at breakfast, at least need to have a protein (egg, cheese, meat, Tamazight yogurt)- extra credit if you add fruits/veggies, OK to have a Grain choice ([place] muffin / toast, etc.) - at your [...] a range- reach out to me in [facility] in aweek or 2 and let me know how the calories are going (calories on average and put in a few days of intake) Your hunger and fullness signals will determine what amount of food is appropriate- keep up the great work noticing this better Work on doing some meal planning -making sure that meals are nutrient rich-shop with a plan- shoot for 3 meals a week (such as a protein and vegetable grilled, a big salad with boiled eggs or cooked chicken, a sheet grace dinner or stir tamayo- if you plan 3 meals you will likely end up with 6 meals dueto left overs! ??? meal timing On track Aim to start eating by 10am (but [...] stick with dinner around 6/6:30p ??? medication On track We will start metformin to target insulin resistance, titrate up as tolerated. Take with food We can consider adding medication if you continue to struggle with cravings-we can consider naltrexone in the evening Continue weaning down on gabapentin ??? movement On track Continue what might help make the walks more regular and have a bad weather alternative- will send yoga sheet with some online videos to investigate and see if you can find one that works for you. Consider adding some sort of strength training ??? sleep On track Try to stay up during the day and be active, will make it more likely you will sleep at night Deep breathing/meditation at night Follow up with sleep lab at [facility] regarding treatment of sleep apnea Medications 06/01/20 1252 Medication Sig Taking? metFORMIN XR (Glucophage XR) 500 mg Tablet Sustained Release 24 hr Take 2 tablets by mouth 2 times daily (with meals). famotidine (Pepcid) 20 mg Tablet Take 20 mg by mouth nightly as needed. levothyroxine (SYNTHROID) 175 mcg Tablet Take 1 tablet by mouth daily. levothyroxine (Synthroid) 25 mcg Tablet Take 0.5 tablets by mouth daily. Patient taking differently: Take 12 mcg by mouth daily. 1/2 tablet with the 150mcg Ventolin HFA 90 mcg/actuation HFA Aerosol Inhaler [...] Progress Notes * Crystal Holley APRN - 06/01/2020 10:30 AM EDT D-[facility] Visit Patient provided verbal consent prior to initiation of this telemedicine encounter and expressed understanding that the telemedicine visit may be billed similar to a clinic visit, pt was seen while at her home in [facility] I spent a total of 44 minutes in discussion / counseling related to [...] medical, diet and activity review was completed. Since our last visit she was seen by a psychiatrist and is planning to start vyvanse when her insurance switches, for ADHD. Feels this will be helpful with her planning and focus. She has been taking metformin 500mg am and 1000mg pm and is doing ok with it. Over the past month she has really been struggling with hunger. She was doing the class but 345pm didn't work, she has signed up for a new HLP session. We will see how she does with vyvanse before considering other pharmacotherapy to target hunger. Today we focused on planning as she has been making some poor choices by not planning and making last minute craving driven choices. We will recheck BMP and A1C as she has had a decrease in renal function, instructed to stay at current dose of metformin for now. Assessment and Plan: Obesity Starting Weight: 257 Today's weight: 246 weight loss 11 # 4.28 % total body weight Last 5 weight values: Wt Readings from Last 5 Encounters: 06/01/20 111.6 kg (246 lb) 04/23/20 111.9 kg (246 lb 11.2 oz) 04/16/20 111.2 kg (245 lb 3.2 oz) 04/09/20 111.7 kg (246 lb 4.8 oz) 03/30/20 113.2 kg (249 lb 9.6 oz) Goals Addressed This Visit's Progress ??? food choices / tracking goals On track - at breakfast, at least need to have a protein (egg, cheese, meat, Tamazight yogurt)- extra credit if you add fruits/veggies, OK to have a Grain choice ([place] muffin / toast, etc.) - at your [...] a range- reach [facility] to me in [facility] in aweek or 2 and let me know how the calories are going (calories on average and put in a few days of intake) Your hunger and fullness signals will determine what amount of food is appropriate- keep up the great work noticing this better Work on doing some meal planning -making sure that meals are nutrient rich-shop with a plan- shoot for 3 meals a week (such as a protein and vegetable grilled, a big salad with boiled eggs or cooked chicken, a sheet grace dinner or stir tamayo- if you plan 3 meals you will likely end up with 6 meals dueto left overs! ??? meal timing On track Aim to start eating by 10am (but [...] stick with dinner around 6/6:30p ??? medication On track We will start metformin to target insulin resistance, titrate up as tolerated. Take with food We can consider adding medication if you continue to struggle with cravings-we can consider naltrexone in the evening Continue weaning down on gabapentin ??? movement On track Continue what might help make the walks more regular and have a bad weather alternative- will send yoga sheet with some online videos to investigate and see if you can find one that works for you. Consider adding some sort of strength training ??? sleep On track Try to stay up during the day and be active, will make it more likely you will sleep at night Deep breathing/meditation at night Follow up with sleep lab at [facility] regarding treatment of sleep apnea INTERVAL HISTORY / PROGRESS TOWARD GOALS: [x] I reviewed past / interim records including notes and labs [facility] Followup Responses 02/25/2020 URICA - Readiness [...] true Patient started on new medications: no New medical conditions: no Recent Hospitalizations: no New Family history Dx of Cancer: no Daily eating Patterns: Doing 2 meals a day around 1300 calories a day, keeping Carbs around 100g a day, though she has slipped some over the past few weeks, not been planning, eating more based on cravings. 24 hour Diet Recall: Breakfast: 10-11: protein shake with berries and spinach. Sometimes eggs Snack: Lunch: Snack: Dinner:6pm: some days better than others, trying to do better with more vegetables, starting with aprotein. She has not really been planning still. Working on getting more organized around meal planning- sometimes picks up a sandwich at the local market, still having a hard time planning Snacks: Drinks: has been good with getting water: mostly getting 64 oz water a day, occasional small sugar free gatorade on really hot days Alcohol : What Letter Grade (A-F) Patient gave self for following behavior change: Stopping Eating after dinner:A, stopped eating after dinner Decreasing Processed foods: C-still not really meal planning, would like some ideas-has been reading intuitive eating. 150 minutes of weekly Movement: B/C not where she would normally be at 40 min due to heat and rain -doing better with getting out and walking now that it is cooler outside Resistance training 2 days a week: B Taking Medications consistently: A Consistent bedtimes: A/B Sleepin-8 hours, still planning to follow with [facility] sleep lab but was put off due to COVID, trying hard to stay awake in the evening and limit napping,so she sleeps better at night Stress scale: feels is ok, is in regular therapy, trying to fit more activities in, hasn't really find anything she likes to do, takes time to get out with her [place] in the [place] Daily stress reduction: A getting out in [...] SIGNS: Ht 157.5 cm (5' 2.01) Wt 111.6 kg (246 lb) BMI 44.98 kg/m?? PHYSICAL EXAM: Gen: Genie Alejandre is a pleasant engaged, appropriate,44 year old female who appears stated age,NAD. Neuro: Alert and oriented Psych: NL affect today, engaged in the visit I spent a total of 55 minutes with the patient 44 minutes of which were spent in [id number] discussion/counseling re obesity, nutrition and activity as well as obesity related co-morbidities. * Kathryn Bashir CMA - 06/01/2020 10:30 AM EDT Ryan Peralta, I ordered some external labs for Genie, can you please send those to her? Thank you! Crystal The above has been mailed to the patient. Kathryn Bashir CMA documented in this encounter Plan of Treatment [...] 1/4 avocado, 1-2 tbsp dressing 1-2 cups [id number] veggies Write down in a notebook with [...] for a y day activity Lifestyle No Katyh Perez RD Note: Will send list of yoga videos to help find one that is a good fit Keep in mind it might take a little time :-) documented as of this encounter Visit Diagnoses Diagnosis Decreased renal function Unspecified disorder of kidney and ureter Prediabetes Other abnormal glucose Insulin resistance Dysmetabolic Syndrome X Class 3 severe obesity with serious comorbidity and body mass index (BMI) of 45.0 to 49.9 in adult, unspecified obesity type documented in this encounter Care Teams Diathermy Equipment Repairer Relationship Specialty Start Date End Date Brittany Muhammad DO [address] [place] [address] PCP - General Family Medicine 01/23/19 documented as of this encounter
--- OUTSIDE RECORDS SUMMARY | 2024-05-07 02:54 | XMS_ITS | Encounter Summary ---
Author Organization Formerly [facility] Address [facility] Prashant hern[address] [address] Care Team Providers Care Residence Supervisor Name Role Phone MurielBrittany nieves Jose BARRETO Primary Care Provider [phone] Encounter Details Date Type Department Care Team (Latest Contact Info) Description 03/11/2020 9:00 AM EDT TH Visit (TeleHealth) [place] [address] Kenia Khanna MD [facility] [place] [address] Class 3 severe obesity with serious comorbidity and body mass index (BMI) of 45.0 to 49.9 in adult, unspecified obesity type; PCOS (polycystic ovarian syndrome); Papillary microcarcinoma of thyroid; DESTINY (acute kidney injury) Social History Tobacco Use Types Packs/Day Years [...] PM EDT documented as of this encounter Progress Notes * Kenia Khanna CW - 03/11/2020 9:00 AM EDT Subjective: Patient ID: Genie Alejandre is a 44 y.o. female. This visit was conducted via telephone given the current COVID-19 pandemic, to which pt consented verbally prior to the beginning of the visit. HPI Ms. Genie Alejandre is a 44 y/o female with a past medical hx significant for MDD, CARLOS, and R renal angiolipoma presenting in f/u for discussion re incidental papillary thyroid micro-ca, PCOS. Previous visits: Genie reports that she first felt the lump about 2 months ago on the left side. It feels like there is some pressure over the isthmus lately- pt underwent CT scan 01/22/2019 with Pulmonology (Yinka) at [facility] which reportedly did have tracheal deviation and does endorse dyspnea.. Endorses dysphagia with the head turned to the left. Underwent FNA 12/2018 which was AUS, Thyroseq was inadequate. Underwent total thyroidectomy 04/07/2019. As noted previously, cytology returned AUS on the L thyroid FNA. Thyroseq was inconclusive. In the R upper pole, an incidental 0.17cm papillary CA was identified on pathology following steve-thyroidectomy done on 04/07/2019. 175mcg of levothyroxine was begun following thyroidectomy which was subsequently down- titrated to 137mcg due to hyperthyroid sx. Thus far, the new dose of levothyroxine has worked well for Genie. She reports that her hair is not falling out as much as it was and appetite isimproved. I had previously noted fairly severe acne on pt's chin while performing her FNA and offered to talkwith her about PCOS at that time. Previoulsy, Genie described irregular menses for many years. Thishad improved for the past 1 year. For that time period, Genie was having menstrual periods monthly,had 1 day this month then stopped. Prior to this, for the past few years, menses regular but very he vidhya. Notes hirsutism mainly on the sides of the face that is bothersome to her. Occasional headaches- started lamictal 6 weeks ago- for mood disorder- does not have a longstanding hx of migraine headaches. Does not have a family or personal hx of clotting disorders. Heavy period after starting the oral contraceptive pill- is experiencing monthly periods now. Has noted improvement in acne, no changes in mood with the OCP. Does remain bothered by excess hirsutism.Is caring for her elderly grandmother. Would be interested in going to the weight and wellness center since her weight is not budging. Today: Has noted an improvement in the facial hair in the neck, not as improved on the face. Menstrual periods have improved- the first few months they were heavy has improved. Is taking tri-sprintec, they are senior category manager. No mirgaines. Not smoking. No lower extremity edema, no dyspnea. Is taking spironolactone 50mg BID- has been roughly 129/82, sometimes has orthostasis. Takes levothyroxine first thing in the AM- other meds about an hour later- losartan, spironolactone, citalopram. Does take tums at bedtime. Post-op had profound fatigue, hungry all time time- levothyroxine was reduced from 150 to 137mcg. Describes fully body sweating that has occurred for a few months. Drenching sweats. Is meeting with the weight and wellness provider- gabapentin was discontinued by them and they are discussing alternative weight neutral antidepressants. Social Hx: Lives in [facility] Former smoker- quit in 2005 Infrequent alcohol use Lives with dog Family Hx: Family is not big on doctors No known thyroid ca Aunt with hypOthyroidism from Gerhard's in family Meds: Current Outpatient Medications: ??? clonazePAM (KlonoPIN) 0.5 mg Tablet, Rapid Dissolve, Take 0.5 mg by mouth daily as needed., Disp: , Rfl: ??? levothyroxine (SYNTHROID) 175 mcg Tablet, Take 1 tablet by mouth daily., Disp: 90 tablet, Rfl: 3 ??? levothyroxine (Synthroid) 25 mcg Tablet, Take 0.5 tablets by mouth daily., Disp: 30 tablet, Rfl: 3 ??? Ventolin HFA 90 mcg/actuation HFA Aerosol Inhaler, Inhale 90 mcg into the lungs as needed., Disp: , Rfl: ??? metFORMIN XR (Glucophage XR) 500 mg Tablet Sustained Release 24 hr, Always take with meals: Week 1: 1 with dinner Week 2: 1 BID week 3: 1 am, 2 with dinner Week4: 2 BID, Disp: 70 tablet, Rfl: 0 ??? loratadine (Claritin) 10 mg Tablet, Take 10 mg by mouth daily., Disp: , Rfl: ??? citalopram (CeleXA) 20 mg Tablet, TAKE ONE TABLET BY MOUTH DAILY, Disp: , Rfl: ??? spironolactone (ALDACTONE) 50 mg Tablet, Take 1 tablet by mouth daily. (Patient taking differently: Take 50 mg by mouth 2 times daily.), Disp: 90 tablet, Rfl: 3 ??? lamoTRIgine (LAMICTAL) 150 mg Tablet, TK 1 T PO D, Disp: , Rfl: 2 ??? norgestimate-ethinyl estradiol (TRI SPRINTEC) 0.18/0.215/0.25 mg-35 mcg (28) Tablet, Take 1 tablet by mouth daily., Disp: 84 tablet, Rfl: 3 ??? SUMAtriptan (IMITREX) 50 mg Tablet, , Disp: , Rfl: 0 ??? pantoprazole (PROTONIX) 20 mg Tablet, Delayed Release (E.C.), 40 mg 2 times daily., Disp: , Rfl: 0 ??? losartan (COZAAR) 25 mg Tablet, Take 1 tab by mouth daily, Disp: , Rfl: 0 Spironolactone 50mg BID Pantoprazole 20mg qd No biotin - No iodine Review of Systems Respiratory: Negative for shortness of breath. Cardiovascular: Negative for chest pain and leg swelling. Endocrine: Positive for heat intolerance (see HPI). Genitourinary: Negative for menstrual problem (menorrhagia). Skin: Negative for rash (acne on the mandible). Improved with OCP Objective:There were no vitals taken for this visit. 260 lbs Physical Exam Not performed as this was a telemedicine visit. 03/2019: B - Right lobe of thyroid, hemithyroidectomy - - Incidental papillary thyroid carcinoma, 1.7 mm (greatest slide measure), in upper ??pole. - One benign node (0/1). Specimen ?Procedure: [...] Level - pretracheal, paratracheal and prelaryngeal / ? Delphian, perithyroidal (central compartment dissection) Pathologic Stage Classification (pTNM, AJCC 8th Edition) ?Primary Tumor (pT): ?? pT1a ?Regional Lymph Nodes (pN): ?? pN0 Additional Findings ?Additional Pathologic Findings: ?? Adenomatoid nodule(s) or nodular follicular ? disease Ref. Range 01/23/2019 13:11 05/22/2019 12:17 TSH Latest Ref Range: 0.27 - 4.20 mcIU/mL 2.85 0.08 (L) Ref. Range 03/02/2020 12:59 Sodium Latest Ref Range: 135 - 145 mmol/L 133 (L) Potassium Latest Ref Range: 3.5 - 5.0 mmol/L 4.0 Chloride Latest Ref Range: 98 - 107 mmol/L 97 (L) CO2 Latest Ref Range: 22 - 31 mmol/L 22 Anion Gap Latest Ref Range: 5 - 15 mmol/L 14 BUN Latest Ref Range: 8 - 18 mg/dL 16 Creatinine Latest Ref Range: 0.70 - 1.20 mg/dL 1.23 (H) eGFR Latest Ref Range: >=60 mL/min/1.73 m?? 53 (L) eGFR Latest Ref Range: >=60 mL/min/1.73 m?? 61 Calcium Latest Ref Range: 8.5 - 10.5 mg/dL 9.8 Glucose Lvl Latest Ref Range: 65 - 199 mg/dL 168 Thyroglobulin Latest Ref Range: <=54.9 ng/mL 0.6 Thyroglob Ab Latest Ref Range: 0.0 - 40.0 IU/mL <20.0 Free T4 Latest Ref Range: 0.93 - 1.70 ng/dL 1.35 TSH Latest Ref Range: 0.27 - 4.20 mcIU/mL 56.60 (H) Assessment and Plan: Ms. Genie Alejandre is a 44 y/o female with a past medical hx significant for MDD, CARLOS and renal angio-lipoma presenting in f/u for discussion related to polycystic ovarian syndrome manifesting as hirsutism, menorrhagia, and acne, micro-PTC, and DESTINY. Last visit, we initiated an OCP and since this initiation, there has been an improvement in menorrhagia and acne. Previously, we substituted spironolactone 50mg BID for hctz 12.5mg in hopes of improving hirsutism with this medication and it appears that this has worked well. Previously, I had anticipated increasing the spironolactone to 100 mg twice daily, however Genie does have an DESTINY on recent lab assessment. In this setting, will recommend she reduce the losartan from 25 mg to 12.5 mg and have a repeat BMP with her primary care physician in 2 weeks. It sounds as though Genie's primary care physician Brittany Muhammad DO is working thisup additionally with a renal ultrasound given the history of a renal angio-lipoma. We have discussed on several occasions the increased risk of cardiovascular disease with PCOS and the importance of latosha loss if possible. Genie is now engaged with the weight and wellness center and they have discontinued gabapentin, initiated metformin. Previously, we have discussed the increased risk of DVT in the setting of BMI45 and age >40 with the use of oral contraceptives. Genie's description of flushing does somewhat make me concerned for perimenopausal symptoms, she may need to discontinue the oral contraceptive if she truly is entering menopause. An IUD may be helpful with the menorrhagia. Otherwise, thyroglobulin is stable, last lateral neck ultrasound was done in October 2019. Will obtain the next lateral neck ultrasound in October 2020 given the current global health crisis and stable thyroglobulin, micro-PTC. Postoperatively, Genie's levothyroxine was reduced from 175 mcg to [address] Liu. Today, Genie's TSH is up to 56, her weight-based dose of levothyroxine is 187 mcg. As such, I have increased the dose from 137 to 187 mcg. Genie is completely dependent upon levothyroxine for her thyroid hormone given her total thyroidectomy. I asked that she have her TSH and free T4 reassessed with her primary care physician in 8 weeks from this change. Our goal is 0.5-2.0 for TSH. #DESTINY -reduce losartan from 25mg qd to 12.5mg qd -reassess BMP with Brittany Muhammad DO in 2 weeks from now -Brittany Muhammad DO is obtaining renal ultrasound it sounds like #micro-PTC s/p total thyroidectomy -increase levothyroxine to 187mcg from 137mcg (weight based full replacement dose) -repeat TSH/Free T4 in 8 weeks from change -ensured pt is not taking levothyroxine with divalent cations -thyroglobulin is stable at 0.6, repeat due 10/2020 -repeat lateral neck u/s in 10/2020 (last done in 10/2019) #PCOS with longstanding hx of oligo/an-ovulation/hirsutism and acne -continue norgestimate ethinyl estradiol for now given improvement in menstrual periods-pt aware age and BMI increase risk of DVT -consider discontinuing in the near future if pt truly is experiencing eliazar- menopausal sx -consider IUD for menorrhagia -pt does not smoke, no hx of migraines, no personal or family hx of DVT -previously switched hctz to spironolactone 50mg BID - hold off on increasing to 100mg BID given current DESTINY #BMI45 -pt is engaged with weight and wellness center who recently d/c gabapentin, initiated metformin -could consider GLP-1 agonist as well Case discussed with staff Technology Methodology Consultant Yobani Ford MD. Pt prefers to be reached at cell #[phone]. Follow up with Ashely Gardner MD in 2 months to discuss PCOS, will need f/u in 10/2020 forlateral neck u/s. Kenia Khanna MD PGY-5 [facility] [place]ocr[place] Fellow Pager #[phone] * Chuy Ford MD - 03/11/2020 9:00 AM EDT I read Dr. Khanna's note and agree with her recommendations and plans. Yobani Ford MD * Chuy Ford MD - 03/11/2020 9:00 AM EDT I have discussed patient with Dr. Khanna and agree with her recommendations. Yobani Ford MD documented in this encounter Plan of [...] up with sleep lab at [facility] regarding treatment of sleep apnea documented as of this encounter Visit Diagnoses Diagnosis Class 3 severe obesity with serious comorbidity and body mass index (BMI) of 45.0 to 49.9 in adult, unspecified obesity type PCOS (polycystic ovarian syndrome) Polycystic ovaries Papillary microcarcinoma of thyroid DESTINY (acute kidney injury) Acute kidney failure, unspecified documented in this encounter Care Teams Residence Supervisor Relationship Specialty Start Date End Date Brittany Muhammad DO [address] [facility] [address] PCP - General Family Medicine 01/23/19 documented as of this encounter
--- OUTSIDE RECORDS SUMMARY | 2024-05-07 02:54 | XMS_ITS | Encounter Summary ---
Author Organization [facility] [place] [address] Care Team Providers Care Show Card Writer Name Role Phone Sabina Brittanyjs Garcia DO Primary Care Provider +1- [phone] Encounter Details Date Type Department Care Team (Latest Contact Info) Description 07/01/2020 2:30 PM EDT TH Visit (TeleHealth) Weight and Wellness at [address] [address] Leonel Marroquin Class 3 severe obesity with [...] Instructions * Patient Instructions* Leonel Marroquin - 07/01/2020 2:30 PM EDT It was good to talk with You this afternoon Genie. I'm looking forward to working on meal planing with you. I will send you hand-outs and recipes through [facility]. I will also ask our MA to mail a book of recipes to you that we have. Leonel Warren documented in this encounter Progress Notes * Leonel Marroquin - 07/01/2020 2:30 PM EDT [facility] Health Head Refrigerating Engineer Phone Visit - Follow up 07/01/2020 [facility] provider: Crystal Holley [ x ] I [...] :-) ??? food choices / tracking goals - at breakfast, at least need to have a protein (egg, cheese, meat, Chinese yogurt)- extra credit if you add fruits/veggies, OK to have a Grain choice (Equatorial Guinean muffin / toast, etc.) - at your [...] a range- reach out to me in [facility] in aweek or 2 and [...] meals dueto left overs! ??? meal timing Aim to start eating [...] [facility]ENTER regarding treatment of sleep apnea ??? stress management Continue working with therapist to manage stress Deep breathing before bedtime Find some activities/hobbies you enjoy to keep your mind and body busy Goals Addressed None [ x ] previous goals were reviewed with the patient Goal setting What would you like to take away from this session today? Ideas for meal planning, especially dinner. What are the biggest challenges you face right now? I often get home at 6:00 and just don't feel like cooking anything.My food preferences have changed and the meds I am on make me not hungry. What are the action(s) you are ready to take now? Write a list of foods I like to eat in each food group to help with meal planning. Try some new recipes. Attend cooking demo. What have you accomplished since our last meeting? (state small/lg successes, wins, new breakthroughs/perspectives) Still losing weight. Going for walks consistently What is your current level of physical activity? Is this a change? Walk my dog. What are you willing to start doing to add more movement into your day/week? Try qigong or yoga andresistance training every other day. Scheduling [ x ] Health assistant strength coach call in [ 2 ] weeks Also needs the following scheduled (school attendance secretary tasked to call) [ ] RD TH visit [ ] MD/FILLER SIFTER MACHINE visit [ ] Is interested in classes once offered: [ ] culinary [ ] peer I provided care to the patient today via telephone call, 30 minutes telephone visit was spent in discussion with patient on above. Leonel Marroquin, Health Head Refrigerating Engineer documented in this encounter Plan of Treatment [...] 1/4 avocado, 1-2 tbsp dressing 1-2 cups [id number] veggies Write down in a notebook with [...] type documented in this encounter Care Teams Show Card Writer Relationship Specialty Start Date End Date Brittany Muhammad DO [address] [place] [address] [place] [address] PCP - General Family Medicine 01/23/19 documented as of this encounter
--- OUTSIDE RECORDS SUMMARY | 2024-05-07 02:54 | XMS_ITS | Encounter Summary ---
Author Organization [facility] [place] [address] Care Team Providers Care Labelling Machine Operator Name Role Phone Brittany Muhammad DO Primary Care Provider +1- [phone] Encounter Details Date Type Department Care Team (Late st Contact Info) Description 03/10/2020 [place] [phone] Dee Ontiveros, [facility] Social History Tobacco Use Types Packs/Day Years [...] Notes * Telephone Encounter - Dee Ontiveros, [facility] - 03/10/2020 9:45 AM EDT GAP Machine Plug Shaper Pre-Telemedicine Phone Note [x] Patient not reached [] Patient reached and the following information was reviewed/obtained per protocol: [] Confirmed patient name and date of [] Confirmed telemedicine tyesha (Vidyo and Virtual Visit) is downloaded and functioning [] Confirmed location of patient - TeleVisit is taking place in [] [place] [] [place] [] If not on [facility], working on signing up for [facility] [] Confirmed has completed any pre-visit questionnaires [] If has not received required pre-visit questionnaires, send via [facility] [] Reviewed patient medications [] Documented self-reported vitals: [] Weight: [] Height [] pulse recorded: [x] Other information or concerns LM asking [...] night Follow up with sleep lab at [facility] regarding treatment of sleep apnea documented as of this encounter Visit Diagnoses Not on filedocumented in this encounter Care Teams Labelling Machine Operator Relationship Specialty Start Date End Date Brittany Muhammad DO [address] [place] [address] PCP - General Family Medicine 01/23/19 documented as of this encounter
--- OUTSIDE RECORDS SUMMARY | 2024-05-07 02:54 | XMS_ITS | Encounter Summary ---
Author Organization [facility] [place] [address] Care Team Providers Care Certified Hearing Instrument Dispenser Name Role Phone Brittany Muhammad DO Primary Care Provider +1- [phone] Encounter Details Date Type Department Care Team (Late st Contact Info) Description 08/02/2020 Telephone Weight and Wellness at [address] [address] Kathryn Bashir, CHIO Social History Tobacco Use [...] Telephone Encounter - Kathryn Bashir CMA - 08/02/2020 3:37 PM EST -H [facility] Mine Exploration Engineer Pre-telemedicine Visit Phone Note Genie Alejandre 1975 [x] Patient was not reached: [] No working phone [] Message left to call [phone] ( ) [facility] message sent [] Patient was reached and the following information was reviewed/obtained per protocol: [] Confirmed patient name and date of [] Confirmed address where patient will be at time of call Patient is in [] [place] [] [place] [] Other: [address] [facility] [address] [place] [address] [] Confirmed best number to be reached is: [] Confirmed telemedicine software downloaded and functioning REVIEW: [] Review of patient medications completed [] Confirmed preferred pharmacy: [] Documented self reported vital signs from [] Home [] DH PCP [] outside PCP Date: [] Weight [] Height [] Blood pressure [] Pulse [] Asked about any recent labs/studies [] No [] Yes: [] Labs/vitals requested [] Labs/vitals sent for scanning (medical secretary) and entry (RN) [] Requested 24 hour diet recall [] Reminded to sign up for [facility] [] Reminded to complete [facility] survey if message received to do so [] Other information or concerns: FOR FOLLOW-UP VISITS: from mailed intake worksheet Interval History ??? Have you started on any NEW medications? [] No [] Yes: ??? Any NEW medical conditions? [] No [] Yes: ??? Any recent hospitalizations? [] No [] Yes: ? ? How many hours are you sleeping? []<=5 []6 []7 []8 []9+ ??? Do you have sleep apnea? [] No [] Yes: o If yes are you on CPAP/BIPAP [] No [] Yes: ??? Stress Scale: []1 []2 []3 []4 []5 []6 []7 []8 []9 []10 NEW symptoms Since last visit are you having any NEW changes in?: ??? Consit: []More hungry []Less hungry []More tired during day ??? HEENT: []Visual changes ??? CV: []Chest pain or discomfort []Palpitations []Increased blood pressure []Increased pulse /heart rate ??? RESP: []Shortness of breath at rest []Cough []Wheezing ??? GI: []Nausea []Vomiting []Constipation []Abdominal pain ??? : []Urinary problems ??? Psych: []Anxiety []Depression []Thoughts of hurting yourself or someone else ??? Neuro: []Feeling light-headed []Headaches []Tingling in arms/legs ??? Musc/Skel: []Joint or muscle problems Patient self-assessment What letter grade (A=doing really well / F = not doing well) would you give yourself for?: ??? Stopping eating after dinner: []A []B []C []D []E []F ??? Decreased processed foods: []A []B []C []D []E []F ??? 150 minute weekly movement: []A []B []C []D []E []F ??? Resistance training 2x/week: (bands, wts or other upper body) []A []B []C []D []E []F ??? Taking your medications: []A []B []C []D []E []F ??? Consistent bedtimes: []A []B []C []D []E []F ??? Daily stress reduction: []A []B []C []D []E []F documented in this encounter Plan of Treatment [...] Follow up with sleep lab at [facility] regarding treatment of sleep apnea food [...] 1/4 avocado, 1-2 tbsp dressing 1-2 cups [id number] veggies Write down in a notebook with [...] on filedocumented in this encounter Care Teams Certified Hearing Instrument Dispenser Relationship Specialty Start Date End Date Brittany Muhammad DO [address] [place] [address] PCP - General Family Medicine 01/23/19 documented as of this encounter
--- OUTSIDE RECORDS SUMMARY | 2024-05-07 02:54 | XMS_ITS | Encounter Summary ---
Author Organization [facility] Address [facility] [place] [address] Care Team Providers Care Miner Assistant Name Role Phone MurielBrittany nieves Primary Care Provider +1- [phone] Encounter Details Date Type Department Care Team (Late st Contact Info) Description 06/22/2020 Orders Only Weight and Wellness at [place] [address] [place] [address] Crystal Holley, CAS [facility] [address] [facility] [address] Pre-diabetes Social History Tobacco Use Types Packs/Day [...] 021 11:55 AM EDT) No Crystal Holley, CAS [...] 1/4 avocado, 1-2 tbsp dressing 1-2 cups [id number] veggies Write down in a notebook with [...] as of this encounter Visit Diagnoses Diagnosis Pre-diabetes Other abnormal glucose documented in this encounter Care Teams Miner Assistant Relationship Specialty Start Date End Date Brittany Muhammad DO [address] [place] [address] PCP - General Family Medicine 01/23/19 documented as of this encounter
--- OUTSIDE RECORDS SUMMARY | 2024-05-07 02:54 | XMS_ITS | Encounter Summary ---
Author Organization [facility] Address [facility] [place] [address] Care Team Providers Care Firearms Assembly Supervisor Name Role Phone RubioBrittany reynolds Primary Care Provider +1- [phone] Reason for Visit * Reason Onset Date Comments Medication Refill Medication Refill 04/16/2020 Encounter Details Date Type Department Care Team (Late st Contact Info) Description 04/16/2020 Refill Weight and Wellness at [address] [address] Crystal Holley, GAMING DIRECTOR [facility] [address] [facility] [place] [address] Insulin resistance; Class 3 severe obesity with [...] Lifestyle Not on track( 3:19 PM EDT) Crsytal Wells APRN Note: Try to stay up [...] 1/4 avocado, 1-2 tbsp dressing 1-2 cups [id number] veggies Write down in a notebook with [...] type documented in this encounter Care Teams Firearms Assembly Supervisor Relationship Specialty Start Date End Date Brittany Muhammad DO [address] [place] [address] PCP - General Family Medicine 01/23/19 documented as of this encounter
--- OUTSIDE RECORDS SUMMARY | 2024-05-07 02:54 | XMS_ITS | Encounter Summary ---
Author [facility] Address [facility] [place] [address] Care Team Providers Care Car Changer Name Role Phone MurielmagdysilvianoBrittany reynolds Jose BARRETO Primary Care Provider +1- [phone] Encounter Details Date Type Department Care Team (Latest Contact Info) Description 03/22/2020 9:00 AM EDT TH Visit (TeleHealth) Weight and Wellness at [address] [address] [facility] [place] [address] Adult BMI 45.0-49.9 kg/sq m Social History Tobacco Use Types Packs/Day Years [...] this encounter Patient Instructions * Patient Instructions* Kathy Perez RD - 03/22/2020 9:00 AM EDT Goals ??? food choices / tracking goals - at breakfast, at least need to have a protein (egg, cheese, meat, Kittitian yogurt)- extra credit if you add fruits/veggies, OK to have a Grain choice (Austrian muffin / toast, etc.) - at your [...] a range- reach out to me in [facility] in aweek or 2 and let me know how the calories are going (calories on average and put in a few days of intake) Your hunger and fullness signals will determine what amount of food is appropriate- keep up the great work noticing this better ??? meal timing Aim to start eating [...] night Follow up with sleep lab at [facility] regarding treatment of sleep apnea ??? stress management Continue working with therapist to manage stress Deep breathing before bedtime Find some activities/hobbies you enjoy to keep your mind and body busy Feel free to send a message if you have any other questions or concerns documented in this encounter Progress Notes * Kathy Perez, RD - 03/22/2020 9:00 AM EDT Nutrition Intervention for Weight Management Initial RD visit with DOROTHY Keenan 1975 Assessment/Nutrition Diagnosis: Pt at increased nutritional risk related to excessive calorie intake and sub optimal physical activity resulting in overweight/obesity as evidenced by BMI and diet recall Telehealth visit conducted while patient was at home at the following address: [address] [place] [phone] Food Trackers: Proteins/carbs/fat?? How to structure, specific food choices. Tried myfitness pal, got frustrated. Used cronometer instead and this was better, plans to continue Activity: Weight Today: Vitals 03/19/2020 02/27/2020 10/24/2019 07/11/2019 Height (Austrian) 62.008 62 63 62.000 Height (Metric) 157.5 cm 157.5 cm 160 cm 157.5 cm Weight (Austrian) 249 lbs 11 oz 260 lbs 257 lbs 262 lbs Weight (Metric) 113.263 kg 117.935 kg 116.574 kg 118.842 kg BMI (Calculated) 45.65 kg/m2 47.55 kg/m2 45.52 kg/m2 47.92 kg/m2 Weight has decreased over 10 lb in less than a month. Genie attributes this change to stopping gabapentin and treating thyroid levels as well as some changes as described below Typical Dietary Intake: Gets up, meds, has to wait B: hb egg, cabot sliced cheddar (4 slices b/c said it was 1 serving) medium apple - 10a L: was with friends, had stuff on the grill, had a hot dog and bun (not sure was hungry) - 12:30 D: mother made burgers (was givena Bun with this) skipped potatoes. Loaded up on salad that had fruits and veggies, mozzarella cheese - 6:30p S: not usually anything after dinner 1300 kartik/ 84 pro/ 102 carbs Patient Goals from Team: Goals ??? meal timing/food choices - discussed. Edited goals, see below Start using a tracker to get an idea where you are with macronutrients, it will be good to have a few days to share with dietitian. Good ballpark is 60-90 grams protein a day, less than 100 grams carbs. (avoid added sugars)- had some questions about what she should be aiming for. Discussed, goals edited Start eating by 10-11am, make sure you start with protein, a protein shake is fine if you don't feel like cooking, avoid carbohydrates with first meal of the day to avoid spike in glucose and insulin.- going well per day described above After eating STAY UP if at all possible, find an activity to do. Avoid eating after 7 pm: nothing after dinner except water. - states going well Focus on eating lots of vegetables and protein, avoid processed carbohydrates as much as possible. They trigger the brain and make you crave more. Let provider know if really struggling. ??? medication - going well. Remains on goal list ??? movement - remains on list Continue regular dog walks - fewer recently because of the heat Consider adding some sort of strength training - trying to use the videos and bands. ??? sleep - did not discuss at length. Remains on list ??? stress management - did not discuss. Remains on list Interview: Was not eating breakfast previously. Other choices were more processed 2 meals/day since end of January. 3 meals is hit and miss. Hard getting into the habit of 3 meals and doesn't have an appetite when it's hot. However, when tries it goes fine. Wake times range from 7:30- 10 or 12 if didn't sleep well Discussed balance between needing to change and feeling like changes are reasonable and sustainable- primarily relating to carbohydrates and having these in reason without feeling like need to cut out altogether. See specific instructions in goals below Barriers to Change: None identified at this time Nutrition Goals: Goals ??? food choices / tracking goals - at breakfast, at least need to have a protein (egg, cheese, meat, Kittitian yogurt)- extra credit if you add fruits/veggies, OK to have a Grain choice (Austrian muffin / toast, etc.) - at your second / third meal, try to always have a veggie (can also have fruit is fine) and alwaysa protein, also OK to have a grain choice Evelio cam[place] is 60-90 grams protein a day, less than 100-150 grams carbs. (avoid added sugars). You don't need to try to limit your fat Probably 1300 calories is a place to start but there might be a range- reach out to me in [facility] in aweek or 2 and let me know how the calories are going (calories on average and put in a few days of intake) Your hunger and fullness signals will determine what amount of food is appropriate- keep up the great work noticing this better ??? meal timing Aim to start eating [...] night Follow up with sleep lab at [facility] regarding treatment of sleep apnea ??? stress management Continue working with therapist to manage stress Deep breathing before bedtime Find some activities/hobbies you enjoy to keep your mind and body busy Monitor/Evaluate: Will follow up in ~ 1 month Aim for 5-10% weight loss from ABW x 3-6 months from initial visit Thank you Kathy Perez RD LD 60 minutes were spent today in contact with the patient documented in this encounter Plan of Treatment [...] night Follow up with sleep lab at [facility] regarding treatment of sleep apnea [...] 1/4 avocado, 1-2 tbsp dressing 1-2 cups [id number] veggies Write down in a notebook with [...] as of this encounter Visit Diagnoses Diagnosis Adult BMI 45.0-49.9 kg/sq m Body Mass Index 45.0-49.9, adult documented in this encounter Care Teams Car Changer Relationship Specialty Start Date End Date Brittany Muhammad DO [address] [place] [address] PCP - General Family Medicine 01/23/19 documented as of this encounter
--- OUTSIDE RECORDS SUMMARY | 2024-05-07 02:54 | XMS_ITS | Encounter Summary ---
Author Organization [facility] [place] [address] Care Team Providers Care Curriculum Facilitator Name Role Phone Sabina Brittanyjs Garcia DO Primary Care Provider +1- [phone] Encounter Details Date Type Department Care Team (Late st Contact Info) Description 04/16/2020 3:45 PM EDT Notes Only Weight and Wellness at [address] [address] Arrived Social History Tobacco Use Types Packs/Day [...] - Inhaled Oxygen Concentration - - Weight 111.2 kg (245 lb 3.2 oz) 020 11:00 AM EDT Height 157.5 cm (5' 2.01) 04/16/2020 1 1:00 AM EDT Body Mass Index 44.84 04/16/2020 11:00 AM EDT documented in this encounter Plan of [...] 1/4 avocado, 1-2 tbsp dressing 1-2 cups [id number] veggies Write down in a notebook with [...] on filedocumented in this encounter Care Teams Curriculum Facilitator Relationship Specialty Start Date End Date Brittany Muhammad DO [address] [place] [address] PCP - General Family Medicine 01/23/19 documented as of this encounter
--- OUTSIDE RECORDS SUMMARY | 2024-05-07 02:54 | XMS_ITS | Encounter Summary ---
Author Organization [facility] [place] [address] Care Team Providers Care Accounting Director Name Role Phone Sabina Brittanyjs Garcia DO Primary Care Provider +1- [phone] Encounter Details Date Type Department Care Team (Late st Contact Info) Description 06/20/2020 External Results Weight and Wellness at [facility] [address] [place] [address] Ernestina Aldridge, RN Social History Tobacco Use Types Packs/Day Years [...] night Follow up with sleep lab at [facility] regarding treatment of sleep apnea food [...] 1/4 avocado, 1-2 tbsp dressing 1-2 cups [id number] veggies Write down in a notebook with [...] time :-) documented as of this encounter Procedures Procedure Name Priority Date/Time Associated Diagnosis Comments [facility] EXTERNAL RESULT PANEL Routine 06/18/2020 documented in this encounter Results * (ABNORMAL) [facility] External Results (06/18/2020) Hemoglobin A1c 6.0(H) <5.7 Blood Urea Nitrogen 17 Creatinine 1.36(H) 0.55 - 1.02 Sodium 137 Potassium 4.5 Chloride 101 Carbon Dioxide 22 Anion Gap 14 Calcium 9.6 Est Glomerular Filtration Rate 41.68 Glucose 138(H) 74 - 106 06/18/2020 Historical Provider POINT OF CARE RICHIE T ORDERABLES documented in this encounter Visit Diagnoses Not on filedocumented in this encounter Care Teams Accounting Director Relationship Specialty Start Date End Date Brittany Muhammad DO [address] [place] [address] PCP - General Family Medicine 01/23/19 documented as of this encounter
--- OUTSIDE RECORDS SUMMARY | 2024-05-07 02:54 | XMS_ITS | Encounter Summary ---
Author Organization [facility] [place] [address] Care Team Providers Care National Accounts Sales Name Role Phone Sabina Brittanyjs Garcia DO Primary Care Provider +1- [phone] Encounter Details Date Type Department Care Team (Late st Contact Info) Description 07/19/2020 Telephone Weight and Wellness at [facility] [address] [place] [phone] Cindy Zee Social History Tobacco Use Types [...] Follow up with sleep lab at [facility] regarding treatment of sleep apnea food choices [...] 1/4 avocado, 1-2 tbsp dressing 1-2 cups [id number] veggies Write down in a notebook with [...] on filedocumented in this encounter Care Teams National Accounts Sales Relationship Specialty Start Date End Date Brittany Muhammad DO [address] [place] [address] PCP - General Family Medicine 01/23/19 documented as of this encounter
--- OUTSIDE RECORDS SUMMARY | 2024-05-07 02:54 | XMS_ITS | Encounter Summary ---
Author Organization [facility] [place] [address] Care Team Providers Care Restaurant Mgr Name Role Phone Sabina Brittanyjs Garcia DO Primary Care Provider +1- [phone] Encounter Details Date Type Department Care Team (Late st Contact Info) Description 04/09/2020 3:45 PM EDT Notes Only Weight and Wellness at [place] [address] [place] [address] Arrived Social History Tobacco Use Types Packs/Day [...] - Inhaled Oxygen Concentration - - Weight 111.7 kg (246 lb 4.8 oz) 020 11:00 AM EDT Height 157.5 cm (5' 2.01) 04/09/2020 1 1:00 AM EDT Body Mass Index 45.04 04/09/2020 11:00 AM EDT documented in this encounter [...] up with sleep lab at [facility] regarding treatment of sleep apnea [...] 1/4 avocado, 1-2 tbsp dressing 1-2 cups [id number] veggies Write down in a notebook with [...] on filedocumented in this encounter Care Teams Restaurant Mgr Relationship Specialty Start Date End Date Brittany Muhammad DO [address] [place] [place] [address] PCP - General Family Medicine 01/23/19 documented as of this encounter
--- OUTSIDE RECORDS SUMMARY | 2024-05-07 02:54 | XMS_ITS | Encounter Summary ---
Author Organization [facility] [place] [address] Care Team Providers Care Resident Care Manager Rn Name Role Phone Sabina Brittanyjs Garcia DO Primary Care Provider +1- [phone] Encounter Details Date Type Department Care Team (Late st Contact Info) Description 07/05/2020 Telephone Weight and Wellness at [facility] [address] [place] [phone] Cindy Zee Social History Tobacco Use Types [...] Follow up with sleep lab at [facility] regarding treatment of sleep apnea food choices [...] 1/4 avocado, 1-2 tbsp dressing 1-2 cups [id number] veggies Write down in a notebook with [...] on filedocumented in this encounter Care Teams Resident Care Manager Rn Relationship Specialty Start Date End Date Brittany Muhammad DO [address] [place] [address] PCP - General Family Medicine 01/23/19 documented as of this encounter
--- OUTSIDE RECORDS SUMMARY | 2024-05-07 02:54 | XMS_ITS | Encounter Summary ---
Author Organization [facility] [place] [address] Care Team Providers Care Lobsterman Name Role Phone Sabina Brittanyjs Garcia DO Primary Care Provider +1- [phone] Encounter Details Date Type Department Care Team (Late st Contact Info) Description 04/05/2020 Telephone Weight and Wellness at [facility] [address] [place] [phone] Cindy Zee Social History Tobacco Use Types [...] Follow up with sleep lab at [facility] regarding treatment of sleep apnea [...] 1/4 avocado, 1-2 tbsp dressing 1-2 cups [id number] veggies Write down in a notebook with [...] on filedocumented in this encounter Care Teams Lobsterman Relationship Specialty Start Date End Date Brittany Muhammad DO [address] [place] [address] PCP - General Family Medicine 01/23/19 documented as of this encounter
--- OUTSIDE RECORDS SUMMARY | 2024-05-07 02:54 | XMS_ITS | Encounter Summary ---
Author Organization [facility] [place] [address] Care Team Providers Care Customer Retention Specialist Name Role Phone Sabina Brittanyjs Garcia DO Primary Care Provider +1- [phone] Encounter Details Date Type Department Care Team (Late st Contact Info) Description 08/03/2020 Telephone Weight and Wellness at [facility] [address] [place] [phone] Cindy Zee Social History Tobacco Use Types [...] 1/4 avocado, 1-2 tbsp dressing 1-2 cups [id number] veggies Write down in a notebook with [...] on filedocumented in this encounter Care Teams Customer Retention Specialist Relationship Specialty Start Date End Date Brittany Muhammad DO [address] [place] [address] PCP - General Family Medicine 01/23/19 documented as of this encounter
--- OUTSIDE RECORDS SUMMARY | 2024-05-07 02:54 | XMS_ITS | Encounter Summary ---
Author Organization [facility] [place] [address] Care Team Providers Care Sql Application Developer Name Role Phone Sabina Brittanyjs Garcia DO Primary Care Provider +1- [phone] Encounter Details Date Type Department Care Team (Late st Contact Info) Description 03/31/2020 Telephone Weight and Wellness at [facility] [address] [place] [phone] Cindy Zee Social History Tobacco Use Types [...] On track( 020 11:17 AM EST) No aKthy Perez RD Note: Direct substitution to meat: [...] 1/4 avocado, 1-2 tbsp dressing 1-2 cups [id number] veggies Write down in a notebook with [...] on filedocumented in this encounter Care Teams Sql Application Developer Relationship Specialty Start Date End Date Brittany Muhammad DO [address] [place] [address] PCP - General Family Medicine 01/23/19 documented as of this encounter
--- OUTSIDE RECORDS SUMMARY | 2024-05-07 02:54 | XMS_ITS | Encounter Summary ---
Author Organization [facility] [place] [address] Care Team Providers Care Dairy And Food Laboratory Assistant Name Role Phone Brittany Muhammad DO Primary Care Provider +1- [phone] Encounter Details Date Type Department Care Team (Late st Contact Info) Description 05/18/2020 Telephone Weight and Wellness at [address] [phone] Kathryn Bashir, CHIO Social History Tobacco Use [...] Telephone Encounter - Kathryn Bashir CMA - 05/18/2020 7:37 AM EDT [facility] Auto Salvage Worker Pre-telemedicine Visit Phone Note Genie Alejandre 1975 Current medications/allergies: ??? metFORMIN XR (Glucophage XR) 500 mg Tablet Sustained Release 24 hr ??? famotidine (Pepcid) 20 mg Tablet ??? levothyroxine (SYNTHROID) 175 mcg Tablet ??? levothyroxine (Synthroid) 25 mcg Tablet ??? Ventolin HFA 90 mcg/actuation HFA Aerosol Inhaler ??? clonazePAM (KlonoPIN) 0.5 mg Tablet, Rapid Dissolve ??? loratadine (Claritin) 10 mg Tablet ??? spironolactone (ALDACTONE) 50 mg Tablet ??? lamoTRIgine (LAMICTAL) 150 mg Tablet ??? norgestimate-ethinyl estradiol (TRI SPRINTEC) 0.18/0.215/0.25 mg-35 mcg (28) Tablet ??? SUMAtriptan (IMITREX) 50 mg Tablet ??? losartan (COZAAR) 25 mg Tablet Allergies Allergen Reactions ??? Bupropion Mood swings ??? Flexeril [Cyclobenzaprine] Anger [x] Patient was not reached: [] No working phone [] Message left to call [phone] [] Patient was reached and the following information was reviewed/obtained per protocol: [] Confirmed patient name and date of [] Confirmed address where patient will be at time of call Patient is in [] [place] [] [place] [] Other: [address] [phone] [] Confirmed best number to be reached is: [] Confirmed telemedicine software downloaded and functioning REVIEW: [] Review of patient medications completed [] NEW medications include: [] Confirmed preferred pharmacy: [] Prescriptions ready to be signed: [] Documented self reported vital signs from [] Home [] DH PCP [] outside PCP Date: [] Weight [] Height [] Blood pressure [] Pulse [] Asked about any recent labs/studies [] No [] Yes: [] Labs/vitals requested [] Labs/vitals sent for scanning (department secretary) and entry (RN) [] Requested 24 hour diet recall [] Reminded to sign up for [facility] [] Reminded to complete [facility] survey if message received to do so [] Other information or concerns: FOR FOLLOW-UP VISITS: from mailed intake worksheet Interval History ??? Have you started on any NEW medications? [] No [] Yes: ??? Any NEW medical conditions? [] No [] Yes: ??? Any recent hospitalizations? [] No [] Yes: ??? Family members with NEW diagnosis of cancer? [] No [] Yes: ? ? How many hours are you sleeping? []<=5 []6 []7 []8 []9+ ??? Do you have sleep apnea? [] No [] Yes: o If yes are you on CPAP/BIPAP [] No [] Yes: o If yes, how many hours are you wearing the mask? []<=5 []6 []7 []8 []9+ ??? Stress Scale: []1 []2 []3 []4 []5 []6 []7 []8 []9 []10 NEW symptoms Since last visit are you having any NEW changes in?: ??? Consit: []More hungry []Less hungry []More tired during day ??? HEENT: []Visual changes []Changes in taste ??? CV: []Chest pain or discomfort []Palpitations [...] []D []E []F ??? Resistance training 2x/week: []A []B []C []D []E []F ??? [...] 1/4 avocado, 1-2 tbsp dressing 1-2 cups [id number] veggies Write down in a notebook with [...] on filedocumented in this encounter Care Teams Dairy And Food Laboratory Assistant Relationship Specialty Start Date End Date Brittany Muhammad DO [address] [place] [place] [address] PCP - General Family Medicine 01/23/19 documented as of this encounter
--- OUTSIDE RECORDS SUMMARY | 2024-05-07 02:54 | XMS_ITS | Encounter Summary ---
Author Organization [facility] [place] [address] Care Team Providers Care Sponge Packer Name Role Phone Sabina Brittanyjs Garcia DO Primary Care Provider +1- [phone] Encounter Details Date Type Department Care Team (Late st Contact Info) Description 03/11/2020 Telephone Weight and Wellness at [address] [phone] Leonel Marroquin Social History Tobacco Use Types Packs/Day Years [...] Not on track( 3:19 PM EDT) Crystal Wells, CAS Note: Try to stay up during the day and be active, will make it more likely you will sleep at night Deep breathing/meditation at night Follow up with sleep lab at [facility] regarding treatment of sleep apnea documented as of this encounter Visit Diagnoses Not on filedocumented in this encounter Care Teams Sponge Packer Relationship Specialty Start Date End Date Brittany Muhammad DO [address] [place] [address] PCP - General Family Medicine 01/23/19 documented as of this encounter
--- OUTSIDE RECORDS SUMMARY | 2024-05-07 02:54 | XMS_ITS | Encounter Summary ---
Author Organization [facility] [place] [address] Care Team Providers Care Shroud Line Tier Name Role Phone Sabina Brittanyjs Garcia DO Primary Care Provider +1- [phone] Encounter Details Date Type Department Care Team (Late st Contact Info) Description 07/05/2020 Telephone Weight and Wellness at [address] [phone] Leonel Marroquin Social History Tobacco Use Types [...] night Follow up with sleep lab at [facility] regarding treatment of [...] 1/4 avocado, 1-2 tbsp dressing 1-2 cups [id number] veggies Write down in a notebook with [...] on filedocumented in this encounter Care Teams Shroud Line Tier Relationship Specialty Start Date End Date Brittany Muhammad DO [address] [place] [address] PCP - General Family Medicine 01/23/19 documented as of this encounter
--- OUTSIDE RECORDS SUMMARY | 2024-05-07 02:54 | XMS_ITS | Encounter Summary ---
Author Organization [facility] Address [facility] [place] [address] Care Team Providers Care Outsole Paraffiner Name Role Phone RubioBrittany reynolds Jose BARRETO Primary Care Provider +1- [phone] Encounter Details Date Type Department Care Team (Latest Contact Info) Description 07/05/2020 8:30 AM EDT TH Visit (TeleHealth) Weight and Wellness at [address] [phone] [facility] [place] [address] Adult BMI 40.0-44.9 kg/sq m Social History Tobacco Use Types [...] - Inhaled Oxygen Concentration - - Weight 109.3 kg (241 lb) 07/05/2020 7:00 AM EDT Height 157.5 cm (5' 2.01) 07/05/2020 7:00 AM ED T Body Mass Index 44.07 07/05/2020 7:00 AM EDT documented in this encounter Patient Instructions * Patient Instructions* Kathy Perez, RD - 07/05/2020 8:30 AM EDT Goals ??? finding a motivation missael for [...] 1/4 avocado, 1-2 tbsp dressing 1-2 cups [id number] veggies Write down in a notebook with [...] weigh weekly at home regardless of classes documented in this encounter Progress Notes * Kathy Perez RD - 07/05/2020 8:30 AM EDT Nutrition Intervention for Weight Management RD visit Assessment/Nutrition Diagnosis: Pt at increased nutritional risk related to excessive calorie intake and sub optimal physical activity resulting in overweight/obesity as evidenced by BMI and diet recall Telehealth visit conducted while patient was at home at the following address: [address] [place] [phone] Food Trackers: See notes below Weight Today: 245/246 through March - June 241 today Vitals 07/05/2020 06/22/2020 Height (Latvian) 62.008 62 Height (Metric) 157.5 cm 157.5 cm Weight (Latvian) 241 lbs 246 lbs Weight (Metric) 109.317 kg 111.585 kg BMI (Calculated) 44.06 kg/m2 44.99 kg/m2 Thinks the classes were motivating and thinking more about combinations of food (last one attended in March- knew the time wouldn't work but was encouraged to sign up anyway. Now enrolled in a new session starting in August) It's frustrating not to see as much progress on the scale. DIscussed that flowsheets show weight has gone down ~5 lbs recently Wasn't actually thinking that much about the reduction (in weight) in the past month because hasn't been feeling as good about her food choices lately. Typical Dietary Intake: Mostly eatnig twice a day, not feeling hungry for a third B: protein smoothie or some eggs and veg or fruit, sometimes oatmeal in addition to the eggs (10a-12p depending on when it feels like she could eat) L: (dogs out from 4:30 til almost 6) D: usually around 6pm. Not wanting to cook at this time, sometimes grabbing a salad from the grocery store on the way home S: Previous Nutrition Goals: Goals ??? food choices / tracking goals - adjusted these goals. Previous goals listed here for reference.Other goals remain unchanged and are listed below - at breakfast, at least need to have a protein (egg, cheese, meat, Lao yogurt)- extra credit if you add fruits/veggies, OK to have a Grain choice (Latvian muffin / toast, etc.) - at your [...] a range- reach out to me in [facility] in aweek or 2 and let [...] meals dueto left overs! ??? meal timing - going well, marked complete Aim to start eating by 10am (but [...] around 3, stick with dinner around 6/6:30p Interview: Genie would like to discuss Meal planning and meat free meals: Beef she grew up with was home raised and doesn't like what's available at the store and recently chicken from the store had a terrible texture and these things in combination have confused the balanced plate. What's missing or is different without the accountability of the classes? - weekly weigh in - regular input of information Reviewed options for meat substitutions and portions for a vegetarian plate, see patient instructions and updated goals Barriers to Change: Nutrition Goals: UPDATES NOTED IN BOLD Goals ??? finding a motivation missael for a rainy day activity Will send list of yoga videos to help find one that is a good fit Keep in mind it might take a little time :-) ??? food choices / tracking goals Healthy fats: Avocado, oils (salad dressing with olive oil, canola oil, cooking use sesame oil or peanut oil for flavor), nuts (pumpkin seeds, pecan, walnut, etc0 Remember fat, fiber, and protein are the full-feeling, blood-sugar balancing, weight loss promotingproperties (not just protein) For example, a grain bowl: 1/2 cup whole grain 1/2 cup beans or lentils 1/4 avocado, 1-2 tbsp dressing 1-2 cups [id number] veggies Write down in a notebook with [...] weigh weekly at home regardless of classes Assessing Calorie Goals at this time? Discussed following new plan (in bold, above) and tracking quantities, weight progress, hunger management, to assess if portions and macronutrients are appropriate Monitor/Evaluate: Will follow up in [facility] for Eatsmarter classes (re-starting in August) and one-on-one RD visit in ~6 weeks to spread out followup visits among JESSICA, MD RD for regular accountability until classes start again Aim for 5-10% weight loss from ABW x 3-6 months from initial visit Thank you Kathy Perez RD LD 30 minutes were spent today in contact with [...] 1/4 avocado, 1-2 tbsp dressing 1-2 cups [id number] veggies Write down in a notebook with [...] Rodriguez RD documented as of this encounter Visit Diagnoses Diagnosis Adult BMI 40.0-44.9 kg/sq m Body Mass Index 40.0-44.9, adult documented in this encounter Care Teams Outsole Paraffiner Relationship Specialty Start Date End Date Brittany Muhammad DO [address] [place] [address] PCP - General Family Medicine 01/23/19 documented as of this encounter
--- OUTSIDE RECORDS SUMMARY | 2024-05-07 02:54 | XMS_ITS | Encounter Summary ---
Author Organization [facility] Address [facility] [place] [address] Care Team Providers Care Top Cutter Name Role Phone MurielmagdysilvianoBrittany reynolds Primary Care Provider +1- [phone] Encounter Details Date Type Department Care Team (Latest Contact Info) Description 04/16/2020 9:30 AM EDT TH Visit (TeleHealth) Weight and Wellness at [address] [phone] [facility] [place] [address] Adult BMI 40.0-44.9 kg/sq m Social History [...] * Patient Instructions* Kathy Perez RD - 04/16/2020 9:30 AM EDT Goals ??? finding a motivation missael for a rainy day activity Will send list of yoga videos to help find one that is a good fit Keep in mind it might take a little time :-) ??? food choices / tracking goals - at breakfast, at least need to have a protein (egg, cheese, meat, [place] yogurt)- extra credit if you add fruits/veggies, OK to have a Grain choice (Moroccan muffin / toast, etc.) - at your [...] a range- reach out to me in [facility] in aweek or 2 and let [...] [facility] of [facility] ??? stress management Continue working with therapist to manage stress Deep breathing before bedtime Find some activities/hobbies you enjoy to keep your mind and body busy documented in this encounter Progress Notes * Kathy Perez RD - 04/16/2020 9:30 AM EDT Nutrition Intervention for Weight Management RD visit Assessment/Nutrition Diagnosis: Pt at increased nutritional risk related to excessive calorie intake and sub optimal physical activity resulting in overweight/obesity as evidenced by BMI and diet recall Telehealth / telephone visit conducted while patient was at home at the following address: [address] [place] [phone] Food Trackers: Seems like her intake has been fairly consistent. Helpful to notice how different foods made her feel- potato salad vs. Regular salad. Starting to have the conversation with herself that she could choose to eat something or feels she wants to, but knows that she wont feel well so is able to say no Sticking with 1300 Activity: Would like to be more consistent and find things that she actually wants to do feeling like hasn't fully gotten started- weather. Opportunity to go for a walk. Theoretically enjoys getting out with the dog in the [place].. Does enjoy this but the weather is getting in the way Yoga videos- feels good after the fact Weight Today: Has noticed a difference with a couple days of eating 245.2. down from 260 on 02/27/20 (has lost 15 lb or 5.7%) Vitals 04/16/2020 04/09/2020 03/30/2020 03/19/2020 Height (Moroccan) 62.008 62.008 62.008 62.008 Height (Metric) 157.5 cm 157.5 cm 157.5 cm 157.5 cm Weight (Moroccan) 245 lbs 3 oz 246 lbs 5 oz 249 lbs 10 oz 249 lbs 11 oz Weight (Metric) 111.222 kg 111.721 kg 113.218 kg 113.263 kg BMI (Calculated) 44.83 kg/m2 45.03 kg/m2 45.64 kg/m2 45.65 kg/m2 Vitals 02/27/2020 Height (Moroccan) 62 Height (Metric) 157.5 cm Weight (Moroccan) 260 lbs Weight (Metric) 117.935 kg BMI (Calculated) 47.55 kg/m2 Goal weight? Doesn't have a goal weight in mind. Typical Dietary Intake: B: smoothie with fruit, spinach and protein powder by 11am L: apple slices and carrots with hummus (2pm) D: soup and veggies, rice, chicken (7:30/8pm) S: Appetite/Hunger: Actually feeling hunger and fullness now Previous Nutrition Goals: Goals ??? food choices / tracking goals- going well. remains on goal list for reference ??? meal timing- going well, remains on list for reference ??? medication - did not discuss, remains on list ??? movement - discussed above, adjusted goals Continue regular dog walks Consider adding some sort of strength training ??? sleep - did not discuss, remains on list ??? stress management - did not discuss, remains on list Continue working with therapist to manage stress Deep breathing before bedtime Find some activities/hobbies you enjoy to keep your mind and body busy Interview: Would have been really easy last night just to stop on the way home and get pizza, but didn't want to feel the way that she knew it would make her feel afterwards Tracking is a non-judgmental way to just notice how things will make her feel (sluggish, etc.) In the past week hasn't done much activity. Discussed possibilities for working this into her routine on a more regular basis going forward Barriers to Change: None identified at this time Nutrition Goals: Goals ??? finding a motivation missael for a rainy day activity Will send list of yoga videos to help find one that is a good fit Keep in mind it might take a little time :-) ??? food choices / tracking goals - at breakfast, at least need to have a protein (egg, cheese, meat, [place] yogurt)- extra credit if you add fruits/veggies, OK to have a Grain choice (Moroccan muffin / toast, etc.) - at your [...] a range- reach out to me in [facility] in aweek or 2 and let [...] [facility] of sleep [facility] ??? stress management Continue working with therapist to manage stress Deep breathing before bedtime Find some activities/hobbies you enjoy to keep your mind and body busy Assessing Calorie Goals at this time? Continue as above Monitor/Evaluate: Will follow up in 2 months Aim for 5-10% weight loss from ABW x 3-6 months from initial visit Thank you VERO Mendieta 30 minutes were spent today in contact [...] 1/4 avocado, 1-2 tbsp dressing 1-2 cups [id number] veggies Write down in a notebook with [...] adult documented in this encounter Care Teams Top Cutter Relationship Specialty Start Date End Date Brittany Muhammad DO [address] [place] [address] PCP - General Family Medicine 01/23/19 documented as of this encounter
--- OUTSIDE RECORDS SUMMARY | 2024-05-07 02:54 | XMS_ITS | Encounter Summary ---
Author Organization [facility] [address] Care Team Providers Care International Coordinator Name Role Phone MurielmagdysilvianoBrittany reynolds Primary Care Provider +1- [phone] Encounter Details Date Type Department Care Team (Late st Contact Info) Description 08/19/2020 5:30 PM EST Notes Only Weight and Wellness at [address] [phone] Social History Tobacco Use Types Packs/Day Years [...] night Follow up with sleep lab at [facility] regarding treatment of sleep [...] 1/4 avocado, 1-2 tbsp dressing 1-2 cups [id number] veggies Write down in a notebook with [...] on filedocumented in this encounter Care Teams International Coordinator Relationship Specialty Start Date End Date Brittany Muhammad DO [address] [place] [place] [address] PCP - General Family Medicine 01/23/19 documented as of this encounter
--- OUTSIDE RECORDS SUMMARY | 2024-05-07 02:54 | XMS_ITS | Encounter Summary ---
Author Organization [facility] [place] [address] Care Team Providers Care Etl Analyst Name Role Phone SabinaAsmitajs Garcia DO Primary Care Provider +1- [phone] Encounter Details Date Type Department Care Team (Late Contact Info) Description 03/19/2020 3:45 PM EDT Notes Only Weight and Wellness at [address] [phone] Social History Tobacco Use Types Packs/Day Years [...] - Inhaled Oxygen Concentration - - Weight 113.3 kg (249 lb 11.2 oz) 03/19/2020 1:00 PM EDT Height 157.5 cm (5' 2.01) 03/19/2020 1:00 PM ED T Body Mass Index 45.66 03/19/2020 1:00 PM EDT documented in this encounter Plan [...] 1/4 avocado, 1-2 tbsp dressing 1-2 cups [id number] veggies Write down in a notebook with [...] on filedocumented in this encounter Care Teams Etl Analyst Relationship Specialty Start Date End Date Brittany Muhammad DO [address] [place] [address] PCP - General Family Medicine 01/23/19 documented as of this encounter
--- OUTSIDE RECORDS SUMMARY | 2024-05-07 02:54 | XMS_ITS | Encounter Summary ---
Author Organization Formerly [facility] [place] [address] Care Team Providers Care Fine Arts Packer Name Role Phone Sabina Brittanyjs Garcia DO Primary Care Provider +1- [phone] Encounter Details Date Type Department Care Team (Late st Contact Info) Description 08/17/2020 Telephone Weight and Wellness at [facility] [address] [place] [phone] Cindy Zee Social History Tobacco Use Types [...] Lifestyle On track( 11:55 AM EDT) No Crsytal Hloley APRN Note: Continue what might help make [...] night Follow up with sleep lab at [facility] regarding treatment of sleep apnea food [...] 1/4 avocado, 1-2 tbsp dressing 1-2 cups [id number] veggies Write down in a notebook with [...] on filedocumented in this encounter Care Teams Fine Arts Packer Relationship Specialty Start Date End Date Brittany Muhammad DO [address] [place] [address] PCP - General Family Medicine 01/23/19 documented as of this encounter
--- OUTSIDE RECORDS SUMMARY | 2024-05-07 02:54 | XMS_ITS | Encounter Summary ---
Author Organization [facility] [place] [address] Care Team Providers Care Farm Service Adviser Name Role Phone Brittany Muhammad DO Primary Care Provider +1- [phone] Encounter Details Date Type Department Care Team (Late st Contact Info) Description 03/29/2020 Telephone Weight and Wellness at [address] [phone] Kathryn Bashir, CHIO Social History Tobacco Use [...] Notes * Telephone Encounter - Kathryn Bashir RAIL DIRECTOR - 03/29/2020 1:06 PM EDT [facility] Planting Supervisor Pre-telemedicine Visit Phone Note Genie Alejandre 1975 Current medications/allergies: ??? levothyroxine (SYNTHROID) 175 mcg Tablet ??? levothyroxine (Synthroid) 25 mcg Tablet ??? Ventolin HFA 90 mcg/actuation HFA Aerosol Inhaler ??? clonazePAM (KlonoPIN) 0.5 mg Tablet, Rapid Dissolve ??? metFORMIN XR (Glucophage XR) 500 mg Tablet Sustained Release 24 hr ??? loratadine (Claritin) 10 mg Tablet ??? citalopram (CeleXA) 20 mg Tablet ??? spironolactone (ALDACTONE) 50 mg Tablet ??? lamoTRIgine (LAMICTAL) 150 mg Tablet ??? norgestimate-ethinyl estradiol (TRI SPRINTEC) 0.18/0.215/0.25 mg-35 mcg (28) Tablet ??? SUMAtriptan (IMITREX) 50 mg Tablet ??? pantoprazole (PROTONIX) 20 mg Tablet, Delayed Release (E.C.) ??? losartan (COZAAR) 25 mg Tablet Allergies Allergen Reactions ??? Bupropion Mood swings ??? Flexeril [Cyclobenzaprine] Anger [x] Patient was not reached: [] No working phone [] Message left to call [phone] [] Patient was reached and the following information was reviewed/obtained per protocol: [] Confirmed patient name and date of [] Confirmed address where patient will be at time of call Patient is in [] [place] [] [place] [] Other: [address] [facility] [address] [facility] [address] [] Confirmed best number to be reached is: [] Confirmed telemedicine software downloaded and functioning REVIEW: [] Review of patient medications completed [] NEW medications include: [] Confirmed preferred pharmacy: [] Prescriptions ready to be signed: [] Documented self reported vital signs from [] Home [] PCP [] outside PCP Date: [] Weight [] Height [] Blood pressure [] Pulse [] Asked about any recent labs/studies [] No [] Yes: [] Labs/vitals requested [] Labs/vitals sent for scanning (real estate legal secretary) and entry (RN) [] Requested 24 hour diet recall [] Reminded to sign up for [facility] [] Reminded to complete [facility] survey if message received to do so [...] Follow up with sleep lab at [facility] regarding treatment of sleep apnea food choices [...] 1/4 avocado, 1-2 tbsp dressing 1-2 cups [id number] veggies Write down in a notebook with [...] on filedocumented in this encounter Care Teams Farm Service Adviser Relationship Specialty Start Date End Date Brittany Muhammad DO [address] [place] [address] PCP - General Family Medicine 01/23/19 documented as of this encounter
--- OUTSIDE RECORDS SUMMARY | 2024-05-07 02:54 | XMS_ITS | Encounter Summary ---
Author Organization [facility] Address [facility] Prashant hernández[place] [address] Care Team Providers Care Science Education Professor Name Role Phone RubioBrittany reynolds Jose BARRETO Primary Care Provider +1- [phone] Encounter Details Date Type Department Care Team (Latest Contact Info) Description 06/22/2020 10:00 AM EDT TH Visit (TeleHealth) [place] [address] Mark Anthony Watts MD [facility] [address] Hypothyroidism, postsurgical; Thyroid cancer; PCOS (polycystic ovarian syndrome); Prediabetes; Vitamin D [...] Sign Reading Time Taken Comments Blood Pressure 121/89 06/22/2020 10:17 AM EDT Pulse 87 06/22/2020 10:17 AM EDT Temperature - - Respiratory Rate 12 06/22/2020 10:17 AM EDT Oxygen Saturation - - Inhaled Oxygen Concentration - - Weight 111.6 kg (246 lb) 06/22/2020 10:17 AM EDT Height 157.5 cm (5' 2) 06/22/2020 10:17 AM EDT Body Mass Index 44.99 06/22/2020 10:17 AM EDT documented in this encounter Patient Instructions * Patient Instructions* Mark Anthony Watts MD - 06/22/2020 10:00 AM EDT Lab after thyroidectomy since 04/07/19 Results for [...] 4.20 mcIU/mL 0.08 (L) 1.95 56.60 (H) ASSESSMENT / PLAN: # Thyroid cancer - microPTC 0.17 cm, right [id number] Stage 1 microPTC s/p Total thyroidectomy in March 2019 without the need for SARAH ablation Tg has been detectable at very low level at 0.6, stable from Jul 2019 until March 2020 TSH levels were NOT at target of 0.1-2.0 range yet (0.08-56.6 range). No evidence of disease on US in Oct 2019. Plan: - Tg & TSH again in 6 weeks (early Aug 2020) and then standing order for TSH q 6 weeks x4 if needed. - To increase levothyroxine 200 mcg daily - Adjust T4 dose PRN. Goal TSH around the low end of lower limit of normal range 0.1-2.0 range. - RTC- March or March 2021 with labs for TSH and Tg, and annual neck ultrasound for thyroid ca surveillance. # PCOS and prediabetes (A1c 6.3-> 6.0% on 06/18/20) - already reduced metforminER 1500 mg/day to 1,000 mg/day per [facility] to reduce insulin resistance (rising Cr from 1.23 to 1.36 on 06/18/20) - cont spironolactone 50 mg bid (unable to increase the dose due to Cr and eGFR) - cont BCPs for bone health - recheck lab for A1c and CMP in 3 mo as ordered by [facility] and we will check 25vitamin D at next lab draw in 6 weeks with her thyroid tests above. Mark Anthony Watts MD, PhD, FACE, FACP documented in this encounter Progress Notes * Mark Anthony Watts MD - 06/22/2020 10:00 AM EDT Endocrine Clinic Name: Genie Estrada : 1975 PCP: Brittany Muhammad DO Provided by: Mark Anthony Watts MD, PhD, FACE, FACP Date: 06/22/20 Reason for visit: Endocrine visit: Thyroid cancer, PCOS and prediabetes (A1c 6% on 06/18/20). Pt used to see Dr. Khanna and me at initial Endocrine visit on 01/24/20 and now transferred under my care directly from today (06/22/20). Patient verbally consents to this telehealth visit and understands that this visit may be billed, similar to a clinic office visit. I provided care to the patient today via VDO call. The total time associated with this visit was 25minutes. HPI: Genie Estrada is a 45 y.o. female who presents for follow-up of thyroid cancer diagnosed / treated with total thyroidectomy on 04/07/19 (no SARAH) with residual Tg 0.6 after the surgery - stable Tg 0.6 ib Jul 2019 and 03/06/20 recently. Thyroid cancer summary 01/23/19 Palpable and enlarging [...] weight. 05/14/20: TSH 6.61, FT4 1.77 => will increase LT4 to 200 mcg qd 06/18/20: A1c 6.0%, Cr 1.36 (eGFR 42), Ca 9.6 Patient has not noted any changes in the neck and is feeling well without any specific complaints. [facility] and has lost wt from 257 to 247 lbs over 6-9 months. Symptoms of thyroid hormone excess / deficiency: Heat intolerance: No Cold intolerance: No Diarrhea: No Constipation: No Weight loss / gain: Yes, down 11 lbs since Oct 2019 Anxiety: No Jitteriness: No Temors: No Palpitations: No Lab Results Component Value Date/Time TSH 56.60 (H) 03/02/2020 12:59 PM TSH 1.95 07/11/2019 01:51 PM TSH 0.08 (L) 05/22/2019 12:17 PM TSH 2.85 01/23/2019 01:11 PM THYROGLB 0.6 03/02/2020 12:59 PM THYROGLB 0.6 07/11/2019 01:51 PM THGAB <20.0 03/02/2020 12:59 PM THGAB <20.0 07/11/2019 01:51 PM Recent Results (from the past 72 hour(s)) [facility] External Results Result Value Ref Range Hemoglobin A1C 6.0 (H) <5.7 BUN 17 Creatinine 1.36 (H) 0.55 - 1.02 Sodium 137 Potassium 4.5 Chloride 101 CO2 22 Anion Gap 14 Calcium 9.6 eGFR 41.68 Glucose Lvl 138 (H) 74 - 106 ---Pathologic Diagnosis--- Date 04/07/19 A - Left [...] Adenomatoid nodule(s) or nodular follicular ? disease Review of Systems See HPI. All [...] to Visit Medication Sig Dispense Refill ??? Vyvanse 40 mg Capsule TK 1 C PO QAM MAXIMUM DAILY DOSE 70 MG TRIAL MAY TITRATE HIGHER ??? Vyvanse 10 mg Capsule TK 1 C PO QAM MAXIMUM DAILY DOSE 70 TRIAL 40 THEN 50 MG WEEK 2 MAYBE 70 MG ??? fluticasone propionate (FLONASE) 50 mcg/actuation [place], Suspension INSTILL 1 SPRAY INTO EACH NOSTRIL BID ??? metFORMIN XR (Glucophage XR) 500 mg Tablet Sustained Release 24 hr Take 2 tablets by mouth 2 times daily (with meals). 120 tablet 1 ??? famotidine (Pepcid) 20 mg Tablet Take 20 mg by mouth nightly as needed. ??? levothyroxine (SYNTHROID) 175 mcg Tablet Take 1 tablet by mouth daily. 90 tablet 3 ??? levothyroxine (Synthroid) 25 mcg Tablet Take 0.5 tablets by mouth daily. (Patient taking differently: Take 12 mcg by mouth daily. 1/2 tablet with the 150mcg) 30 tablet 3 ??? Ventolin HFA 90 mcg/actuation HFA [...] Types: Cigarettes Quit date: 10/01/2005 Years since quittin.7 ??? Smokeless tobacco: Never Used ??? Tobacco comment: quit 2006 Substance Use Topics ??? Alcohol use: Yes Comment: I drink only 3-4 times throughout the year ??? Drug use: No Physical Exam BW 246 lbs GENERAL: A+O x 3; Comfortable; Mood and [...] 4.20 mcIU/mL 0.08 (L) 1.95 56.60 (H) Addendum 02/24/21: Outside lab on 02/23/21 were ok with better A1c 5.9%, TSH 1.1, normal CBC and CMP. MARK ANTHONY WATTS MD ASSESSMENT / PLAN: # Thyroid cancer - microPTC 0.17 cm, right [id number] Stage 1 microPTC s/p Total thyroidectomy in March 2019 without the need for SARAH ablation Tg has been detectable at very low level at 0.6, stable from Jul 2019 until March 2020 TSH levels were NOT at target of 0.1-2.0 range yet (0.08-56.6 range). No evidence of disease on US in Oct 2019. Plan: - Tg & TSH again in 6 weeks (early Aug 2020) and then standing order for TSH q 6 weeks x4 if needed. - To increase levothyroxine 200 mcg daily - Adjust T4 dose PRN. Goal TSH around the low end of lower limit of normal range 0.1-2.0 range. - RTC- March or March 2021 with labs for TSH and Tg, and annual neck ultrasound for thyroid ca surveillance. # PCOS and prediabetes (A1c 6.3-> 6.0% on 06/18/20-> 5.9% on 02/23/21) - already reduced metforminER 1500 mg/day to 1,000 mg/day per C to reduce insulin resistance (rising Cr from 1.23 to 1.36 on 06/18/20) - cont spironolactone 50 mg bid (unable to increase the dose due to Cr and eGFR) - cont BCPs for bone health - recheck lab for A1c and CMP in 3 mo as ordered by [facility] and we will check 25vitamin D at next lab draw in 6 weeks with her thyroid tests above. Mark Anthony Watts MD, PhD, FACE, FACP * Kathryn Bashir CMA - 06/22/2020 10:00 AM EDT Ryan Peralta, I sent outside labs for Genie, can you please mail to her, thanks! Crystal The above has been mailed to the pts home address. Kathryn Bashir CMA documented in this encounter [...] 1/4 avocado, 1-2 tbsp dressing 1-2 cups [id number] veggies Write down in a notebook with [...] 25 OH 48 21 - 100 ng/mL [facility] Vit D Interp Sufficient [facility] Blood 03/18/2021 3:13 PM EDT 03/18/2021 3:41 PM EDT Narrative Resulting Agency Comment Spec In Lab Mark Anthony Watts MD CHEMISTRY ORDERAB LES [facility] [place] [address] documented in this encounter Visit Diagnoses Diagnosis Hypothyroidism, postsurgical Postsurgical hypothyroidism Thyroid cancer Malignant neoplasm of thyroid gland PCOS (polycystic ovarian syndrome) Polycystic ovaries Prediabetes Other abnormal glucose Vitamin D insufficiency Unspecified vitamin D deficiency documented in this encounter Care Teams Science Education Professor Relationship Specialty Start Date End Date Brittany Muhammad DO [address] [place] [place] [address] PCP - General Family Medicine 01/23/19 documented as of this encounter
--- OUTSIDE RECORDS SUMMARY | 2024-05-07 02:54 | XMS_ITS | Encounter Summary ---
Author Organization [facility] [address] Care Team Providers Care Computer Systems Support Specialist Name Role Phone Sabina Brittanyjs Garcia DO Primary Care Provider +1- [phone] Encounter Details Date Type Department Care Team (Late st Contact Info) Description 06/01/2020 Telephone Weight and Wellness at [facility] [address] [place] [phone] Cindy Zee Social History Tobacco Use Types [...] night Follow up with sleep lab at [facility] regarding treatment of sleep apnea food choices [...] 1/4 avocado, 1-2 tbsp dressing 1-2 cups [id number] veggies Write down in a notebook with [...] on filedocumented in this encounter Care Teams Computer Systems Support Specialist Relationship Specialty Start Date End Date Brittany Muhammad DO [address] [place] [address] PCP - General Family Medicine 01/23/19 documented as of this encounter
--- OUTSIDE RECORDS SUMMARY | 2024-05-07 02:54 | XMS_ITS | Encounter Summary ---
Author Organization [facility] Address [facility] [place] [address] Care Team Providers Care Sales Order Processor Name Role Phone MurielBrittany nieves Primary Care Provider +1- [phone] Reason for Visit * Reason Comments Medication Refill Encounter Details Date Type Department Care Team (Late st Contact Info) Description 04/16/2020 Refill Weight and Wellness at [facility] [address] [place] [address] Crystal Holley, CERTIFIED HYPERBARIC TECHNOLOGIST [facility] [address] [facility] [place] [address] Insulin resistance; Class 3 severe obesity with [...] management Lifestyle On track( 11:55 AM EDT) rCystal Wells APRN Note: Continue working with therapist [...] night Follow up with sleep lab at [facility] regarding treatment of sleep apnea [...] 1/4 avocado, 1-2 tbsp dressing 1-2 cups [id number] veggies Write down in a notebook with [...] type documented in this encounter Care Teams Sales Order Processor Relationship Specialty Start Date End Date Brittany Muhammad DO [address] [place] [address] PCP - General Family Medicine 01/23/19 documented as of this encounter
--- OUTSIDE RECORDS SUMMARY | 2024-05-07 02:54 | XMS_ITS | Encounter Summary ---
Author Organization [facility] Address [facility] [place] [address] Care Team Providers Care Pcb Design Engineer Name Role Phone Brittany Muhammad Primary Care Provider +1- [phone] Reason for Visit * Reason Comments Follow-up weight management Encounter Details Date Type Department Care Team (Latest Contact Info) Description 08/03/2020 10:30 AM EST TH Visit (TeleHealth) Weight and Wellness at [address] [address] Crystal Holley, CANE SPLICER [facility] [address] Class 3 severe obesity with serious comorbidity [...] Concentration - - Weight 108 kg (238 lb) 08/03/2020 11:00 AM EST Height 157.5 cm (5' 2.01) 08/03/2020 11:[address] Body Mass Index 43.52 08/03/2020 11:00 AM EST documented in this encounter Patient Instructions * Patient Instructions* Crystal Holley Jose Luis, CANE SPLICER - 08/03/2020 10:30 AM EST From our visit today: keep up the good work, start keeping track of your water again, goal is 64 lara day, continue the excellent work with planning. I'm glad you are doing the classes, I think that will be really helpful. I'll have Cindy set you up to see William again. Let me know if you have any questions or need anything. Stay safe! Crystal Goals Addressed This Visit's Progress ??? food choices / tracking goals On track Direct substitution to meat: Tofu and tempeh [...] 1/4 avocado, 1-2 tbsp dressing 1-2 cups [id number] veggies Write down in a notebook with [...] sauces, etc. Throughout the week ??? medication On track We will start metformin to target insulin resistance, titrate up as tolerated. Take with food Vyvanse helping with cravings, keep that up ??? movement On track Continue what might help make the walks more regular and have a bad weather alternative- will send yoga sheet with some online videos to investigate and see if you can find one that works for you. Consider adding some sort of strength training ??? sleep Not on track Try to stay up during the day and be active, will make it more likely you will sleep at night Deep breathing/meditation at night Follow up with sleep lab at [facility] regarding treatment of sleep apnea ??? stress management On track Continue working with therapist to manage stress Deep breathing before bedtime Find some activities/hobbies you enjoy to keep your mind and body busy Medications 08/03/20 1212 Medication Sig Taking? levothyroxine (Synthroid) 200 mcg Tablet Take 1 tablet by mouth daily. Vyvanse 40 mg Capsule TK 1 C PO QAM MAXIMUM DAILY DOSE 70 MG TRIAL MAY TITRATE HIGHER Vyvanse 10 mg Capsule TK 1 C PO QAM MAXIMUM DAILY DOSE 70 TRIAL 40 THEN 50 MG WEEK 2 MAYBE 70 MG fluticasone propionate (FLONASE) 50 mcg/actuation [place], Suspension INSTILL 1 SPRAY INTO EACH NOSTRIL BID metFORMIN XR (Glucophage XR) 500 mg Tablet Sustained Release 24 hr Take 2 tablets by mouth 2 times daily (with meals). famotidine (Pepcid) 20 mg Tablet Take 20 mg by mouth nightly as needed. Ventolin HFA 90 mcg/actuation HFA Aerosol Inhaler [...] documented in this encounter Progress Notes * Crsytal Holley APRN - 08/03/2020 10:30 AM EST [facility] Visit Patient provided verbal consent prior to initiation of this telemedicine encounter and expressed understanding that the telemedicine visit may be billed similar to a clinic visit, pt was seen while at her home in [facility] I spent a total of 30 minutes [...] review was completed. Since our last visit was started on vyvanse and that has really helped with her cravings. She has not really been having cravings for sugar much at all. She is having some dry mouth since starting, she thinks she is not drinking enough water as she just sips on water but actually drinks very little. We reviewed some strategies to add more water, she will plan to drink 4 oz everytime she takes a drink. She has been taking metformin 1000mg pm and is doing ok with it. Renal function is slightly impaired so will stay at that dose for now. She was doing the class but 345pm didn't work, she has signed up for a new HLP session which starts Aug 19 and she is looking forward to that. She has been talkingto her pcp about adding a GLP-1, due to kidney function is holding off for now. Reviewed risks and benefits of these medications. She has done better with planning, but sometimes finds her second a meal a little hard. She is moremindful of her eating choices. She will continue to work on being more mindful, planning and prepping meal, increasing water and will add some strength exercise, plan to do either before or after walks with her dog. We will follow up in about 8 weeks, she would like to continue individual RD and HC visits. Assessment and Plan: Obesity Starting Weight: 257 Today's weight: 238 weight loss 19 # 7.39% total body weight Last 5 weight values: Wt Readings from Last 5 Encounters: 08/03/20 108 kg (238 lb) 07/05/20 109.3 kg (241 lb) 06/22/20 111.6 kg (246 lb) 06/01/20 111.6 kg (246 lb) 04/23/20 111.9 kg (246 lb 11.2 oz) Goals Addressed This Visit's Progress ??? food choices / tracking goals On track Direct substitution to meat: Tofu and tempeh [...] 1/4 avocado, 1-2 tbsp dressing 1-2 cups [id number] veggies Write down in a notebook with [...] sauces, etc. Throughout the week ??? medication On track We will start metformin to target insulin resistance, titrate up as tolerated. Take with food Vyvanse helping with cravings, keep that up ??? movement On track Continue what might help make the walks more regular and have a bad weather alternative- will send yoga sheet with some online videos to investigate and see if you can find one that works for you. Consider adding some sort of strength training ??? sleep Not on track Try to stay up during the day and be active, will make it more likely you will sleep at night Deep breathing/meditation at night Follow up with sleep lab at [facility] regarding treatment of sleep apnea ??? stress management On track Continue working with therapist to manage stress Deep breathing before bedtime Find some activities/hobbies you enjoy to keep your mind and body busy INTERVAL HISTORY / PROGRESS TOWARD GOALS: [x] I reviewed past / interim records including notes and labs [facility] Followup Responses 02/25/2020 URICA - Readiness [...] Never true Patient started on new medications: alannae New medical conditions: no Recent Hospitalizations: no New Family history Dx of Cancer: no Daily eating Patterns: Doing 2 meals a day around 1300 calories a day, recently feeling a bit more depressed so has not been as mindful of her eating. She has been taking Sunday afternoons to prep vegetables for the week. Some days finds it hard to have her second meal and just has an apple and some cheese or pb and crackers. Will work on being intentional with her meals. 24 hour Diet Recall: Breakfast: 10-11: protein [...] still having a hard time planning Snacks: Drinks:sipping water but not really sure how much, will work on this Alcohol : What Letter Grade (A-F) Patient [...] set backs. 150 minutes of weekly Movement: B/C- walking her dog consistently, dog had surgery recently so decreased but is back on a routine Resistance training 2 days a week: D, has not made a habit Taking Medications consistently: A Consistent bedtimes: A/B Sleepin-8 hours, still planning to follow with [facility] sleep lab but was put off due to COVID, is sleeping better now that on vyvanse Stress scale: feels is ok, is in regular therapy, trying to fit more activities in, hasn't really find anything she likes to do, takes time to get out with her [place] in the [place], COVID and election have made things stressful but feels she is doing ok Daily stress reduction: A getting out in [...] SIGNS: Ht 157.5 cm (5' 2.01) Wt 108 kg (238 lb) BMI 43.52 kg/m?? PHYSICAL EXAM: Gen: Genie Alejandre is a pleasant engaged, appropriate, 45 year old female who appears stated age, NAD. Neuro: Alert and oriented Psych: NL affect today, engaged in the visit I spent a total of 40 minutes with the patient 30 minutes of which were spent in [id number] discussion/counseling re obesity, nutrition and activity as well as obesity related co-morbidities. * Kathryn Bashir CMA - 08/03/2020 10:30 AM EST This patient has been sent bands and a booklet. Kathryn Bashir CMA documented in this encounter [...] night Follow up with sleep lab at [facility] regarding treatment of sleep [...] 1/4 avocado, 1-2 tbsp dressing 1-2 cups [id number] veggies Write down in a notebook with [...] type documented in this encounter Care Teams Pcb Design Engineer Relationship Specialty Start Date End Date Brittany Muhammad DO [address] [place] [address] PCP - General Family Medicine 01/23/19 documented as of this encounter
--- OUTSIDE RECORDS SUMMARY | 2024-05-07 02:54 | XMS_ITS | Encounter Summary ---
Author Organization [facility] [place] [address] Care Team Providers Care Pharmacovigilance Safety Expert Name Role Phone Brittany Muhammad DO Primary Care Provider +1- [phone] Encounter Details Date Type Department Care Team (Latest Contact Info) Description 04/30/2020 8:00 AM EDT TH Visit (TeleHealth) Weight and Wellness at [address] [phone] Leonel Marroquin Class 3 severe obesity with [...] Instructions * Patient Instructions* Leonel Marroquin - 04/30/2020 8:00 AM EDT It was good to meet you today Genie. You were going to send Crystal a myd-h message to ask about the timing of your metformin, if you can take it with your other meds and what take with food reallymeans. Try to increase physical activity as you feel appropriate. Crystal was going to send you a hand-out with links to yoga videos. You might also check out Qigosp on You Tube. I like Koko Allred, he hs many videos that range from 10 minutes to an hour. There's also a website, Searchles, that kevin good class for we bigger women. Here is the website for the Mindful Self-Compassion I was talkingabout. I hope you find some helpful information with these! I will talk with you soon, Leonel [email or web address] documented in this encounter Progress Notes * Leonel Marroquin - 04/30/2020 8:00 AM EDT [facility] Health Private Wealth Advisor Phone Visit - Follow up 04/30/2020 [facility] provider: Crystal Holley [x ] I confirmed that I am speaking [...] to have a protein (egg, cheese, meat, Portuguese yogurt)- extra credit if you add fruits/veggies, OK to have a Grain choice (Yemeni muffin / toast, etc.) - at your [...] a range- reach out to me in [facility] in aweek or 2 and let me [...] night Follow up with sleep lab at [facility] regarding treatment of sleep apnea ??? stress management Continue working with therapist to manage stress Deep breathing before bedtime Find some activities/hobbies you enjoy to keep your mind and body busy [ x ] previous goals were reviewed with the patient Goal setting What would you like to take away from this session today? Come up with strategy to remember to takemetformin. What are the biggest challenges you face right now? I feel hungry all of the time. I keep forgetting to take metformin. I leave it where I can see it yet it feels like just another thing I have to do. We discussed if she is having any adverse reactions to it, she is not. I also asked if she thinks it is helpful, she does. Genie finds it hard to think to take it with food. Genie is having blood work done next week to check her thyroid meds. She is wondering if that has something to do with her constant feeling of hunger. What are the action(s) you are ready to take now? She is going to send a message to her provider tosee if she can take it with her other mds and also what take with food means.. a light snack or afull meal? She may talk with provider about constant hunger, depending on what her thyroid labs show. What have you accomplished since our last meeting? (state small/lg successes, wins, new breakthroughs/perspectives) Working on getting protein in. I've been drinking protein shakes as meal replacements. Eating two meals a day at regular times as well. What is your current level of physical activity? Is this a change?Getting some kind of physical activity every day. What are you willing to start doing to add more movement into your day/week? Take dog for longer walks. Scheduling [ x ] Health learning coach call in [ 2 ] weeks Also needs the following scheduled (executive legal secretary tasked to call) [ ] TH visit [ ] MD/HEALTH PHYSICS TECHNICIAN visit [ ] Is interested in classes once offered: [ ] culinary [ ] peer I provided care to the patient today via telephone call, 30 minutes telephone visit was spent in discussion with patient on above. Leonel Marroquin, Health Private Wealth Advisor documented in this encounter Plan of Treatment [...] night Follow up with sleep lab at [facility] regarding treatment of sleep [...] 1/4 avocado, 1-2 tbsp dressing 1-2 cups [id number] veggies Write down in a notebook with [...] type documented in this encounter Care Teams Pharmacovigilance Safety Expert Relationship Specialty Start Date End Date Brittany Muhammad DO [address] [place] [address] PCP - General Family Medicine 01/23/19 documented as of this encounter
--- OUTSIDE RECORDS SUMMARY | 2024-05-07 02:54 | XMS_ITS | Encounter Summary ---
Author Organization [facility] [place] [address] Care Team Providers Care Inspection Clerk Name Role Phone Sabina Brittanyjs Garcia DO Primary Care Provider +1- [phone] Encounter Details Date Type Department Care Team (Late Contact Info) Description 09/02/2020 5:30 PM EST Notes Only Weight and Wellness at [address] [phone] Social History Tobacco Use Types Packs/Day Years [...] - Inhaled Oxygen Concentration - - Weight 108.7 kg (239 lb 9.6 oz) 09/02/2020 3:00 PM EST Height 157.5 cm (5' 2.01) 09/02/2020 3:00 PM ES T Body Mass Index 43.81 09/02/2020 3:00 PM EST documented in this encounter [...] 1/4 avocado, 1-2 tbsp dressing 1-2 cups [id number] veggies Write down in a notebook with [...] on filedocumented in this encounter Care Teams Inspection Clerk Relationship Specialty Start Date End Date Brittany Muhammad DO [address] [place] [address] PCP - General Family Medicine 01/23/19 documented as of this encounter
--- OUTSIDE RECORDS SUMMARY | 2024-05-07 02:54 | XMS_ITS | Encounter Summary ---
Author Organization [facility] [place] [address] Care Team Providers Care Baker Operator Automatic Name Role Phone SabinaAsmitajs Garcia DO Primary Care Provider +1- [phone] Encounter Details Date Type Department Care Team (Late st Contact Info) Description 09/09/2020 5:30 PM EST Notes Only Weight and Wellness at [address] [phone] Social History Tobacco Use Types Packs/Day Years [...] - Inhaled Oxygen Concentration - - Weight 108.2 kg (238 lb 8 oz) 09/09/2020 11:00 A M EST Height 157.5 cm (5' 2.01) 09/09/2020 11:[address] Body Mass Index 43.61 09/09/2020 11:00 AM EST documented in this encounter Plan of [...] night Follow up with sleep lab at [facility] regarding treatment of sleep apnea food [...] 1/4 avocado, 1-2 tbsp dressing 1-2 cups [id number] veggies Write down in a notebook with [...] on filedocumented in this encounter Care Teams Baker Operator Automatic Relationship Specialty Start Date End Date Brittany Muhammad DO [address] [place] [address] PCP - General Family Medicine 01/23/19 documented as of this encounter
--- OUTSIDE RECORDS SUMMARY | 2024-05-07 02:54 | XMS_ITS | Encounter Summary ---
Author Organization [facility] [place] [address] Care Team Providers Care Non Licensed Nuclear Equipment Operator Name Role Phone Sabina Brittanyjs Garcia DO Primary Care Provider +1- [phone] Encounter Details Date Type Department Care Team (Late st Contact Info) Description 06/18/2020 Telephone [place] [phone] Rama Lee [facility] Social History Tobacco Use Types Packs/Day [...] as of this encounter Miscellaneous Notes * Addendum Note - Mark Anthony Watts MD - 06/20/2020 3:18 PM EDTAddended by: MARK ANTHONY WATTS on: 06/20/2020 03:18 PM Modules accepted: Orders * Telephone Encounter - Rama Galvan MA - 06/18/2020 1:43 PM EDT 5C Cell Coverer Pre-Telemedicine Phone Note [] Patient not reached [x] Patient reached and the following information was reviewed/obtained per protocol: [x] Confirmed patient name and date of [x] Confirmed location of patient - TeleVisit is taking place in [x] [place] [] [place] [] [place] [] [place] [x] Confirmed Pt has MyDH [] If not on myDH, working on signing up for myDH [] If no MyDH is made, how is Dr sending Pt the zoom link for video [] By Cell phone [] By E-mail [] If Pt is a phone visit how is Dr contacting Pt [] Home phone [] Cell phone [] Other number [x] Reviewed patient medications ??? Vyvanse 40 mg Capsule ??? Vyvanse 10 mg Capsule ??? fluticasone propionate (FLONASE) 50 mcg/actuation [place], Suspension ??? metFORMIN XR (Glucophage XR) 500 mg [...] Tablet ??? losartan (COZAAR) 25 mg Tablet [x] Documented self-reported vitals: [x] Weight: 247lbs [x] Height:5'2 [] Other information or concerns documented in this encounter Plan of Treatment [...] 1/4 avocado, 1-2 tbsp dressing 1-2 cups [id number] veggies Write down in a notebook with [...] as of this encounter Visit Diagnoses Diagnosis Hypothyroidism, acquired Unspecified hypothyroidism documented in this encounter Care Teams Non Licensed Nuclear Equipment Operator Relationship Specialty Start Date End Date Brittany Muhammad DO [address] [place] [address] PCP - General Family Medicine 01/23/19 documented as of this encounter
--- OUTSIDE RECORDS SUMMARY | 2024-05-07 02:54 | XMS_ITS | Encounter Summary ---
Author Organization [facility] Address [facility] [place] [address] Care Team Providers Care Government Relations Analyst Name Role Phone MurielBrittany nieves Primary Care Provider +1- [phone] Reason for Visit * Reason Comments Follow-up obesity/weight manag ement Encounter Details Date Type Department Care Team (Latest Contact Info) Description 03/30/2020 7:30 AM EDT TH Visit (TeleHealth) Weight and Wellness at [address] [phone] Crystal Holley, WARP SPLITTER [facility] [address] [facility] [place] [address] Class 3 severe obesity with serious comorbidity and body mass index (BMI) of 45.0 to 49.9 in adult, unspecified obesity type; Insulin resistance Social History Tobacco Use Types [...] - Inhaled Oxygen Concentration - - Weight 113.2 kg (249 lb 9.6 oz) 03/30/2020 7:00 AM EDT Height 157.5 cm (5' 2.01) 03/30/2020 7:00 AM ED T Body Mass Index 45.64 03/30/2020 7:00 AM EDT documented in this encounter Patient Instructions * Patient Instructions* Crystal Holley APRN - 03/30/2020 7:30 AM EDT From our visit today: good to see you, keep up the good work. I will have Kathryn send you some meal plans and will have you schedule to see Kathy again. Goals Addressed This Visit's Progress ??? food choices / tracking goals On track - at breakfast, at least need to have a protein (egg, cheese, meat, German yogurt)- extra credit if you add fruits/veggies, OK to have a Grain choice (Qatari muffin / toast, etc.) - at your [...] a range- reach out to me in [facility] in aweek or 2 and let me know how the calories are going (calories on average and put in a few days of intake) Your hunger and fullness signals will determine what amount of food is appropriate- keep up the great work noticing this better Work on doing some meal planning ??? meal timing On track Aim to [...] on gabapentin ??? movement On track Continue regular dog walks Consider adding some sort of strength training ??? sleep On track Try to stay up during the day and be active, will make it more likely you will sleep at night Deep breathing/meditation at night Follow up with sleep lab at [facility] regarding treatment of sleep apnea ??? stress management On track Continue working with therapist to manage stress Deep breathing before bedtime Find some activities/hobbies you enjoy to keep your mind and body busy Medications 03/30/20 1728 Medication Sig Taking? famotidine (Pepcid) 20 mg Tablet Take 20 mg by mouth nightly as needed. Yes levothyroxine (SYNTHROID) 175 mcg Tablet Take 1 [...] 0.5 mg by mouth daily as needed. metFORMIN XR (Glucophage XR) 500 mg Tablet Sustained Release 24 hr Always take with meals: Week 1: 1 with dinner Week 2: 1 BID week 3: 1 am, 2 with dinner Week4: 2 BID loratadine (Claritin) 10 mg Tablet Take 10 [...] in this encounter Progress Notes * Crystal Holley, WARP SPLITTER - 03/30/2020 7:30 AM EDT [facility] Visit Patient provided verbal consent prior to initiation of this telemedicine encounter and expressed understanding that the telemedicine visit may be billed similar to a clinic visit, pt was seen while at her home in [facility] I spent a total of 43 minutes in discussion / counseling related to medications, obesity, nutritionand physical activity as well as obesity related co-morbidities Patient Name: Genie Alejandre Date of : 1975 Age: [address] Brittany Muhammad, DO / CHIEF COMPLAINT: Follow-up for Obesity SUMMARY OF VISIT AND RECOMMENDATIONS: Genie Alejandre is currently being treated with metformin and lifestyle for obesity. Month # 1 Genie Alejandre was seen in follow up today for ongoing management, and an updated medical, diet and activity review was completed She has had a hard time increasing metformin. Has been taking 500mg am and 500mg pm. She stopped taking pantoprazole per her pcp and is taking prn pepcid and this seems to be working ok now but at first she was having some GI upset and wasn't sure if stopping PPI or staring metformin, has settled down and will try increasing. Assessment and Plan: Obesity Starting Weight: 257 Today's weight:249.6 weight loss 7.4 # 3.11 % total body weight Last 5 weight values: Wt Readings from Last 5 Encounters: 03/19/20 113.3 kg (249 lb 11.2 oz) 02/27/20 117.9 kg (260 lb) 10/24/19 116.6 kg (257 lb) 07/11/19 118.8 kg (262 lb) 05/22/19 119.3 kg (263 lb) Goals Addressed This Visit's Progress ??? food choices / tracking goals On track - at breakfast, at least need to have a protein (egg, cheese, meat, German yogurt)- extra credit if you add fruits/veggies, OK to have a Grain choice (Qatari muffin / toast, etc.) - at your [...] a range- reach out to me in [facility] in aweek or 2 and let me know how the calories are going (calories on average and put in a few days of intake) Your hunger and fullness signals will determine what amount of food is appropriate- keep up the great work noticing this better Work on doing some meal planning ??? meal timing On track Aim to [...] on gabapentin ??? movement On track Continue regular dog walks Consider adding some sort of strength training ??? sleep On track Try to stay up during the day and be active, will make it more likely you will sleep at night Deep breathing/meditation at night Follow up with sleep lab at [facility] regarding treatment of sleep apnea ??? stress management On track Continue working with therapist to manage stress Deep breathing before bedtime Find some activities/hobbies you enjoy to keep your mind and body busy INTERVAL HISTORY / PROGRESS TOWARD GOALS: [x] I reviewed past / interim records including notes and labs [facility] Followup Responses 02/25/2020 [facility] - Readiness [...] Never true Patient started on new medications: famotidine New medical conditions: no Recent Hospitalizations: no New Family history Dx of Cancer: no Daily eating Patterns: Doing 2 meals a day around 1300 calories a day, keeping Carbs around 100g a day, meeting protein goals. She has noticed hunger more during the day, definitely feels gardner at times and really notices. She had picked up some chips and finished the whole bag, she does not really remember why, she hasnot really had sweet cravings.. 24 hour Diet Recall: Breakfast: 10-11: protein shake with berries and spinach. Sometimes eggs Snack: Lunch: Snack: Dinner:6pm: some days better than others, trying to do better with more vegetables, starting with aprotein. She has not really been planning still. Working on getting more organized around meal planning Snacks: Drinks: has been good with getting water: mostly getting 70-80 oz water a day, occasional small sugar free gatorade on really hot days Alcohol : What Letter Grade (A-F) Patient gave self for following behavior change: Stopping Eating after dinner:A, stopped eating after dinner Decreasing Processed foods: B-still not really meal planning, would like some ideas-has been reading intuitive eating. 150 minutes of weekly Movement: B/C not where she would normally be at 40 min due to heat and rain Resistance training 2 days a week: A Taking Medications consistently: A Consistent bedtimes: A/B Sleepin-8 hours, still planning to follow with [facility] sleep lab, still struggling with sleep, trying hard to stay awake in the evening and limit napping, she slept really well last night! Slept 8 hours Stress scale: feels is ok, is in regular therapy, trying to fit more activities in, hasn't really find anything she likes to do. Liked reading and being outside as a kid, has not really been doing much reading much now, encouraged to continue, takes time to get out with her [...] diarrhea, constipation, abdominal pain- some GI upset - but improving : Pain with urination, blood in urine, kidney stones impotence, change in libido If female: control method-OCP Musculoskeletal: joint swelling, joint pain Integumentary: Rash or skin breakdown. Bruising. Psychiatric: Anxiety, depression, thoughts of hurting yourself or someone else. Psychosis Neurological: Headaches, dizziness, tingling arms/legs, restlessness, insomnia, tremor VITAL SIGNS: Ht 157.5 cm (5' 2.01) Wt 113.2 kg (249 lb 9.6 oz) BMI 45.64 kg/m?? PHYSICAL EXAM: Gen: Genie Alejandre is a pleasant engaged, appropriate,44 year old female who appears stated age,NAD. Neuro: Alert and oriented Psych: NL affect today, engaged in the visit I spent a total of 55 minutes with the patient 43 minutes of which were spent in [id number] discussion/counseling re obesity, nutrition and activity as well as obesity related co-morbidities. Treatment options were discussed including intensive lifestyle intervention, pharmacotherapy with risks and advantages outlines for each. * Kathryn Bashir CMA - 03/30/2020 7:30 AM EDT Ryan Peralta, Can you put together some information for Genie, she would really like some meal plans with shopping lists. Please and thank you! Crystal The above was mailed. Kathryn Bashir CMA documented in this encounter [...] night Follow up with sleep lab at [facility] regarding treatment of sleep apnea [...] 1/4 avocado, 1-2 tbsp dressing 1-2 cups [id number] veggies Write down in a notebook with [...] obesity type Insulin resistance Dysmetabolic Syndrome X documented in this encounter Care Teams Government Relations Analyst Relationship Specialty Start Date End Date Brittany Muhammad DO [address] [facility] [place] [address] PCP - General Family Medicine 01/23/19 documented as of this encounter
--- OUTSIDE RECORDS SUMMARY | 2024-05-07 02:54 | XMS_ITS | Encounter Summary ---
Author Organization [facility] [place] [address] Care Team Providers Care Procedures Nurse Name Role Phone Sabina Brittanyjs Garcia DO Primary Care Provider +1- [phone] Encounter Details Date Type Department Care Team (Late st Contact Info) Description 07/22/2020 Telephone Weight and Wellness at [address] [phone] Cindy Zee Social History Tobacco Use Types [...] night Follow up with sleep lab at [facility] regarding treatment of sleep apnea food [...] 1/4 avocado, 1-2 tbsp dressing 1-2 cups [id number] veggies Write down in a notebook with [...] on filedocumented in this encounter Care Teams Procedures Nurse Relationship Specialty Start Date End Date Brittany Muhammad DO [address] [place] [place] [address] PCP - General Family Medicine 01/23/19 documented as of this encounter
--- OUTSIDE RECORDS SUMMARY | 2024-05-07 02:54 | XMS_ITS | Encounter Summary ---
Author Organization [facility] [place] [address] Care Team Providers Care Insole Coverer Name Role Phone Sabina Brittanyjs Garcia DO Primary Care Provider +1- [phone] Encounter Details Date Type Department Care Team (Late st Contact Info) Description 05/31/2020 Telephone Weight and Wellness at [address] [phone] Kathryn Bashir, CHIO Social History Tobacco Use [...] Telephone Encounter - Kathryn Bashir CMA - 05/31/2020 3:54 PM EDT [facility] Developer [employer] Pre-telemedicine Visit Phone Note Genie Alejandre 1975 [x] Patient was not reached: [] No working phone [] Message left to call [phone] ( ) [facility] message sent [] Patient was reached and the following information was reviewed/obtained per protocol: [] Confirmed patient name and date of [] Confirmed address where patient will be at time of call Patient is in [] [place] [] [place] [] Other: [address] [facility] [address] [place] [address] [] Confirmed best number to be reached [...] Labs/vitals requested [] Labs/vitals sent for scanning (secretary to the vice president) and entry (RN) [] Requested 24 hour [...] 1/4 avocado, 1-2 tbsp dressing 1-2 cups [id number] veggies Write down in a notebook with [...] for a rainy day activity Lifestyle Kathy Rodriguez, RD Note: Will send list of yoga videos to help find one that is a good fit Keep in mind it might take a little time :-) documented as of this encounter Visit Diagnoses Not on filedocumented in this encounter Care Teams Insole Coverer Relationship Specialty Start Date End Date Brittany Muhammad DO [address] [place] [address] PCP - General Family Medicine 01/23/19 documented as of this encounter
--- OUTSIDE RECORDS SUMMARY | 2024-05-07 02:54 | XMS_ITS | Encounter Summary ---
Author Organization [facility] Address [facility] [place] [address] Care Team Providers Care Marketing Analytics Analyst Name Role Phone MurielBrittany nieves Primary Care Provider +1- [phone] Reason for Visit * Reason Onset Date Comments Medication Refill 09/14/2020 Encounter Details Date Type Department Care Team (Late st Contact Info) Description 09/14/2020 Refill Weight and Wellness at [address] [phone] Crystal Holley, CHEF'S ASSISTANT [facility] [address] [facility] [address] Insulin resistance; Class 3 severe obesity with [...] night Follow up with sleep lab at [facility] regarding treatment of sleep apnea food [...] 1/4 avocado, 1-2 tbsp dressing 1-2 cups [id number] veggies Write down in a notebook with [...] type documented in this encounter Care Teams Marketing Analytics Analyst Relationship Specialty Start Date End Date Brittany Muhammad DO [address] [place] [address] PCP - General Family Medicine 01/23/19 documented as of this encounter
--- OUTSIDE RECORDS SUMMARY | 2024-05-07 02:54 | XMS_ITS | Encounter Summary ---
Author Organization [facility] [place] [address] Care Team Providers Care Cord Maker Name Role Phone Sabina Brittanyjs Garcia DO Primary Care Provider +1- [phone] Encounter Details Date Type Department Care Team (Late st Contact Info) Description 04/23/2020 3:45 PM EDT Notes Only Weight and Wellness at [address] [phone] Arrived Social History Tobacco Use Types Packs/Day [...] - Inhaled Oxygen Concentration - - Weight 111.9 kg (246 lb 11.2 oz) 04/23/2020 1:00 PM EDT Height 157.5 cm (5' 2.01) 04/23/2020 1:00 PM ED T Body Mass Index 45.11 04/23/2020 1:00 PM EDT documented in this encounter [...] 1/4 avocado, 1-2 tbsp dressing 1-2 cups [id number] veggies Write down in a notebook with [...] on filedocumented in this encounter Care Teams Cord Maker Relationship Specialty Start Date End Date Brittany Muhammad DO [address] [place] [address] PCP - General Family Medicine 01/23/19 documented as of this encounter
--- OUTSIDE RECORDS SUMMARY | 2024-05-07 02:55 | XMS_ITS | Encounter Summary ---
Author Organization [facility] Address [facility] [place] [address] Care Team Providers Care Delimer Name Role Phone Stefanie Joy APRN Primary Care Provider [phone]- [phone] Encounter Details Date Type Department Care Team (Late st Contact Info) Description 03/30/2014 1:22 PM EDT - 03/30/2014 11:59 PM EDT [place] [address] CLINIC, DR YANEZ Back pain Social History Tobacco Use Types Packs/Day Years [...] - Inhaled Oxygen Concentration - - Weight 104.3 kg (230 lb) 03/30/2014 3:44 PM EDT Height - - Body Mass Index 42.07 10/31/2013 9:16 AM EST documented in this encounter Medications at Time of Discharge Medication Sig Dispensed Refills Start Date End Date citalopram (CELEXA) 40 mg tablet Take 40 mg by mouth daily. 01/23/2019 clonazePAM (KLONOPIN) 1 mg tablet Take 1 mg by mouth 2 times daily as needed. 03/11/2020 desonide (DESOWEN) 0.05 % cream Apply twice daily to affected areas for 2 weeks 30 g 0 01/29/2014 01/23/2019 multivitamin (THERAGRAN) tablet Take 1 tablet by mouth daily. 03/11/2020 documented as of this encounter Miscellaneous Notes * Miscellaneous - Provider, Scanning - 04/13/2014 11:25 AM EDT documented in this encounter Plan of Treatment Not on file documented as of this encounter Procedures Procedure Name Priority Date/Time Associated Diagnosis Comments MRI LUMBAR SPINE WITH/WO CONTRAST Routine 03/30/2014 4:01 PM EDT Back pain documented in this encounter Results * MRI lumbar spine with/WO contrast (03/30/2014 4:01 PM EDT) Anatomical Region Laterality Modality L-spine Magnetic Resonan ce 03/30/2014 4:01 PM EDT Narrative 03/30/2014 5:13 PM EDT Examination MR Lumbar Spine W/WO Theodore Clinical History low back/bilateral buttock pain/left leg pain ?? s/p 09/17/13 Left L4-5 diskectomy Technique Multiplanar, multi sequence MR images through the lumbar spine were obtained with and without the use of contrast. The patient received 20 mL of Magnevist. ?? Comparison Outside MRI 07/08/2013. Findings Normal marrow and cord signal seen throughout. ??The alignment is well maintained. ??The conus is at T12-L1 level. The patient is status post discectomy at L4-L5. No areas of abnormal STIR signal are noted. T11-T12: ??A disc bulge is present with mild left neural foraminal narrowing. T12-L1: ??No significant canal or neural foraminal narrowing. L1-L2: ??No significant canal or neural foraminal narrowing. ?? L2-L3: ??No significant canal or neural foraminal narrowing. L3-L4: ??No significant canal or neural foraminal narrowing. L4-L5: ??The patient is status post discectomy with partial left-sided laminectomy defect. ??There is a new left -sided paracentral extruded disc fragment with surrounding enhancing enhancement which abutting the exiting L4 nerve root. ?? There is moderate canal narrowing. There is also moderate right-sided neural foraminal narrowing. ?? L5-S1: ??No significant canal or neural foraminal narrowing. ?? Impression The patient is status post discectomy at L4-L5 with recurrence of an extruded disc fragment with surrounding enhancement abutting the exiting L4 nerve root. ?? Comment: The following findings are so common in people without low back pain that while we report their presence, they must be interpreted with caution and in the context of the clinical situation. (Reference-Grettavik et al, Spine 2001) Findings: (prevalence in patients without low back pain), Disk degeneration (decreased T2 signal, height loss, bulge) (91%), Disk T2-signal loss (83%), Disk height loss (56%), Disk bulge (64%), Disk protrusion (32%), Annular fissure (38%). Film and interpretation reviewed by the attending Procedure Note Lam Blanco MD - 03/30/2014 Examination MR Lumbar Spine W/WO Theodore Clinical History low back/bilateral buttock pain/left leg pain s/p 09/17/13 Left L4-5 diskectomy Technique Multiplanar, multi sequence MR images through the lumbar spine wereobtained with and without the use of contrast. The patient received 20 mL ofMagnevist. Comparison Outside MRI 07/08/2013. Findings Normal marrow and cord signal seen throughout. The alignment is well maintained. The conus is at T12-L1 level. The patient is status post discectomy at L4-L5. No areas of abnormal STIR signal are noted. T11-T12: A disc bulge is present with mild left neural foraminalnarrowing. T12-L1: No significant canal or neural foraminal narrowing. L1-L2: No significant canal or neural foraminal narrowing. L2-L3: No significant canal or neural foraminal narrowing. L3-L4: No significant canal or neural foraminal narrowing. L4-L5: The patient is status post discectomy with partial left-sided laminectomy defect. There is a new left -sided paracentral extruded disc fragment with surrounding enhancing enhancement which abutting the exitingL4 nerve root. There is moderate canal narrowing. There is also moderate right-sided neural foraminal narrowing. L5-S1: No significant canal or neural foraminal narrowing. Impression The patient is status post discectomy at L4-L5 with recurrence of anextruded disc fragment with surrounding enhancement abutting the exiting L4 nerveroot. Comment: The following findings are so common in people without low backpain that while we report their presence, they must be interpreted with cautionand in the context of the clinical situation. (Reference-Kikak et al, [id number]) Findings: (prevalence in patients without low back pain), Diskdegeneration (decreased T2 signal, height loss, bulge) (91%), Disk T2-signal loss(83%), Disk height loss (56%), Disk bulge (64%), Disk protrusion (32%), Annular fissure (38%). Film and interpretation reviewed by the attending Brock Trujillo MD IMG MRI ORDERABLES documented in this encounter Visit Diagnoses Diagnosis Back pain Backache, unspecified documented in this encounter Administered Medications Inactive Administered Medications - up to 3 most recent administrations Medication Order MAR Action Action Date Dose Rate Site gadopentetate dimeglumine (MAGNEVIST) 10 mmol/20 mL (469.01 mg/mL) injection 20.86 mL 20.86 mL (0.2 mL/kg/dose ? 104.3 kg), Intravenous, ONCE PRN, 1 dose, Starting on Sun03/30/14 at 1544, Until Sun03/30/14 at 1553, Per Protocol, Routine Given 03/30/2014 3:53 PM EDT 20.86 mLs documented in this encounter Care Teams Delimer Relationship Specialty Start Date End Date Stefanie Joy APRN [id number] [place] [address] PCP - General 05/08/13 11/26/16 documented as of this encounter
--- OUTSIDE RECORDS SUMMARY | 2024-05-07 02:55 | XMS_ITS | Encounter Summary ---
Author Organization [facility] [place] [address] Care Team Providers Care Floor Worker [place] Name Role Phone Sabina Brittanyjs Garcia DO Primary Care Provider [phone]- [phone] Reason for Visit * Reason Onset Date Comments Appointment 03/03/2020 Encounter Details Date Type Department Care Team (Late st Contact Info) Description 03/03/2020 [place] [id number] She Martinez Appointment Social History Tobacco Use Types Packs/Day [...] encounter Miscellaneous Notes * Telephone Encounter - She Cordova - 03/03/2020 4:36 PM EDT Left message to call back regarding switching appointment on 03/09 to a [facility] due to public health concerns. documented in this encounter Plan of Treatment [...] night Follow up with sleep lab at [facility] regarding treatment of sleep apnea documented as of this encounter Visit Diagnoses Not on filedocumented in this encounter Care Teams Floor Worker [place] Relationship Specialty Start Date End Date Brittany Muhammad DO [address] [place] [address] PCP - General Family Medicine 01/23/19 documented as of this encounter
--- OUTSIDE RECORDS SUMMARY | 2024-05-07 02:55 | XMS_ITS | Encounter Summary ---
Author Organization [facility] Address [facility] [place] [address] Care Team Providers Care Tilesetter Name Role Phone Joy, Stefanie Cami CAS Primary Care Provider [phone]- [phone] Encounter Details Date Type Department Care Team (Late st Contact Info) Description 09/17/2013 7:30 AM EST Anesthesia Event [place] [address] Cy Rockwell MD [facility] [place] [address] Anesthesia Record Procedure Summary Procedure Name Responsible Anesthesiologist Anesthesia Start Time Anesthesia Stop Time LAMINOTOMY, DECOMPRESSION, FORAMINOTOMY, LUMBAR (WRVU 12) (Left: Spine Lumbar) Cy Rockwell MD 09/17/13 0730 09/17/13 0941 Events Date Time Event Comment 09/17/2013 0657 0730 AN Verify 0730 Start 0730 An Start Data 0737 An Induction After Pt. ID,Mo nitors per ASA standards,and preoxygenation A/W was established without incident. 0739 An Intubation 0741 Anesthesia Ready 0801 Skin Incision 0936 Extubation/LMA Out Extubatio n criteria met.Swallow/Cough reflex intact. Resp pattern regular and efficient.Oxygen Sat% optimal. Extubated to natural A/W 0936 an stop data 0941 Stop Handoff endorse ment & care assumption to receiving medical professional complete. 0941 Handoff The patient's c woodson was reviewed. The current anestetic course as well as the anesthetic plans were also reviewed. JCM Handoff endorsed to RN @ Bedside, SD 38. Oxygen/Monitors established. VSS/HD stable/Baseline.Natural A/W without distress. Breathing pattern easy and efficient. Conversing,Actions appropriate.No abnormal events throughout this Phase of Care. Meds Name Total Midazolam 2 mg fentaNYL 250 mcg lidocaine IV 50 mg propofol 150 mg Rocuronium 70 mg PHENYLephrine 400 mcg Ondansetron 8 mg Dexamethasone 4 mg Neostigmine 5 mg Glycopyrrolate 0.7 mg ceFAZolin 2 g Labetalol 10 mg ketorolac 15 mg HYDROmorphone 0.8 mg lactated ringers 1,000 mL * Agents Name O2 Air N2O Sevoflurane (et) * Blood No blood administrations on file. Lines, Drains, and Airways Type Details Placement Removal Incision 09/17/13; lumbar spine; 05/29/22 (LDA cleanup utility RA#[id number]); 1715 (LDA cleanup utility RA#[id number]) 09/17/13 0000 by Flor Patrick RN 05/29/22 1715 by Joanna Ivory (RETIRED) Peripheral IV Line - Single Lumen 09/17/13; 0637; 09/17/13; 1140 09/17/13 0637 by Gale Kirkpatrick RN 09/17/13 1140 by Mary Quiñones RN (RETIRED) Non-Surgical Airway Mask Ventilation: Easy (1); ETT Type: Cuffed, Oral; ETT Size: 7.5 mm; Oral Airway: 90 mm (4); Removal Date: 09/17/13; Removal Time: 0936 09/17/13 0800 by 09/17/13 0936 by Alpesh Geiger CRNA documented in this encounter Social History Tobacco Use Types Packs/Day Years [...] PM EDT documented as of this encounter OR Notes * Anesthesia Postprocedure Evaluation - Cy Rockwell MD - 09/17/2013 11:09 AM EST Patient: Genie Alejandre Procedure(s) Performed: Procedure(s): LAMINOTOMY, DECOMPRESSION, FORAMINOTOMY, LUMBAR MODIFIER L4 MODIFIER L5 Actual Anesthetic: general Patient location: PACU Post-op pain: Adequate analgesia Post-op nausea: Nausea on sitting up, being addressed. Last Vitals: Filed Vitals: 09/17/13 1020 BP: 130/71 Pulse: 71 Temp: Resp: 16 Post-op cardiovascular and respiratory status: is stable Level of consciousness: awake, alert and oriented Complications: no apparent complications and tolerated the procedure well Fluid Status: normal * Anesthesia Preprocedure Evaluation - Cy Rockwell MD - 09/16/2013 6:34 PM EST Pre-Anesthesia Evaluation for: Genie Alejandre a 38 y.o. female. Procedure(s): LAMINOTOMY, DECOMPRESSION, FORAMINOTOMY, LUMBAR MODIFIER L4 MODIFIER L5 Patient Active Problem List Diagnosis ??? HNP (herniated nucleus pulposus), lumbar ??? History of nephrolithiasis ??? 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 Psoriasis ??? Hypothyroid ??? Depression ??? CARLOS (obstructive sleep apnea) Past Medical History Diagnosis Date ??? Urinary disorder Oct 2003 Kidney stones ??? Mental or behavioral problem 2002 PTSD, Depression ??? Skin disorder 2011 Psoriasis ??? Hormone disorder 2012 Under active thyroid Past Surgical History Procedure Date ??? Gastroenterology procedure 1992 Gallbladder removed ??? Bladder surgery 2001 Kidney stone removal History Substance Use Topics ??? Smoking status: Former Smoker -- 1.0 packs/day for 5 years Types: Cigarettes Quit date: 10/01/2005 ??? Smokeless tobacco: Never Used Comment: quit 2005 ??? Alcohol Use: Yes 0 Glasses of wine, 0 Cans of beer, 0 Shots of liquor, 0 Drinks containing 0.5 oz of alcohol per week Comment: I drink only 3-4 times throughout the year History Drug Use No No Known Allergies Medications: MAR and/or home medications have been reviewed. Physical Exam: There were no vitals filed for this visit. There is no height or weight on file to calculate BMI. Airway Assessment: Mallampati: III TM distance: >3 FB Neck ROM: full Cardiovascular Assessment: Pulmonary Assessment: Dental Assessment: - normal exam [facility] [place] Assessment: Anesthesia Plan: ASA 2 general, with a(n) intravenous induction 38 y/o 102 kg female with painful herniated lumbar disc scheduled for decompressing lumbar laminectomy. Hx sleep apnea uses CPAP at home, hypothyroid, depression, renal stones, right renal mass beingevaluated. Otherwise good general health. Region - Other Informed Consent: Anesthetic plan and risks discussed with patient and mother. Use of blood products discussed with patient whom consented to blood products. Plan discussed with BINDER FIXER. [facility] [place]. Assessment: documented in this encounter Plan of Treatment Not on file documented as of this encounter Visit Diagnoses Not on filedocumented in this encounter Administered Medications Inactive Administered Medications - up to 3 most recent administrations Medication Order MAR Action Action Date Dose Rate Site ceFAZolin (ANCEF) 1g in dextrose 5% 50mL PRN, Starting on Sun09/17/13 at 0748, Until Sun09/17/13 at 0941, Administer over 30 Minutes, Anesthesia Intra-op Given 09/17/2013 7:48 AM EST 2 g dexamethasone (DECADRON) injection PRN, Starting on Sun09/17/13 at 0743, Until Sun09/17/13 at 0941, Anesthesia Intra-op, Routine Given 09/17/2013 7:43 AM EST 4 mg fentaNYL 50mcg/mL injection PRN, Starting on Sun09/17/13 at 0737, Until Sun09/17/13 at 0941, Pain, Anesthesia Intra-op, Routine Given 09/17/2013 8:03 AM EST 50 mcg Given 09/17/2013 7:52 AM EST 50 mcg Given 09/17/2013 7:37 AM EST 100 mcg glycopyrrolate (ROBINUL) injection PRN, Starting on Sun09/17/13 at 0912, Until Sun09/17/13 at 0941, Anesthesia Intra-op, Routine Given 09/17/2013 9:12 AM EST 0.7 mg HYDROmorphone (DILAUDID) injection PRN, Starting on Sun09/17/13 at 0919, Until Sun09/17/13 at 0941, Pain, Anesthesia Intra-op, Routine Given 09/17/2013 9:25 AM EST 0.4 mg Given 09/17/2013 9:19 AM EST 0.4 mg ketorolac (TORADOL) injection PRN, Starting on Sun09/17/13 at 0903, Until Sun09/17/13 at 0941, Pain, Anesthesia Intra-op, Routine Given 09/17/2013 9:03 AM EST 15 mg labetalol (NORMODYNE;TRANDATE) injection PRN, Starting on Sun09/17/13 at 0756, Until Sun09/17/13 at 0941, High Blood Pressure, Anesthesia Intra-op, Routine Given 09/17/2013 9:24 AM EST 5 mg Given 09/17/2013 7:56 AM EST 5 mg lactated ringers infusion CONTINUOUS PRN, Starting on Sun09/17/13 at 0725, Until Sun09/17/13 at 0941, Anesthesia Intra-op New Bag 09/17/2013 7:25 AM EST mL lidocaine (PF) (XYLOCAINE) 100 mg/5 mL (2 %) injection PRN, Starting on Sun09/17/13 at 0737, Until Sun09/17/13 at 0941, Anesthesia Intra-op, Routine Given 09/17/2013 7:37 AM EST 50 mg midazolam (VERSED) injection PRN, Starting on Sun09/17/13 at 0723, Until Sun09/17/13 at 0941, Sleep, Anesthesia Intra-op, Routine Given 09/17/2013 7:23 AM EST 2 mg neostigmine (PROSTIGMINE) injection PRN, Starting on Sun09/17/13 at 0912, Until Sun09/17/13 at 0941, Anesthesia Intra-op, Routine Given 09/17/2013 9:12 AM EST 5 mg ondansetron (ZOFRAN) injection PRN, Starting on Sun09/17/13 at 0743, Until Sun09/17/13 at 0941, Nausea, Anesthesia Intra-op, Routine Given 09/17/2013 9:05 AM EST 4 mg Given 09/17/2013 7:43 AM EST 4 mg PHENYLephrine HCl in NS (PF) (JASVIR-SYNEPHRINE) 0.8 mg/10 mL (80 mcg/mL) injection Syrg PRN, Starting on Sun09/17/13 at 0803, Until Sun09/17/13 at 0941, Anesthesia Intra-op, Routine Given 09/17/2013 8:22 AM EST 160 mcg Given 09/17/2013 8:13 AM EST 80 mcg Given 09/17/2013 8:10 AM EST 80 mcg propofol (DIPRIVAN) 10 mg/mL bolus injection (Anesthesia) PRN, Starting on Sun09/17/13 at 0737, Until Sun09/17/13 at 0941, Anesthesia Intra-op Given 09/17/2013 7:37 AM EST 15 0 mg rocuronium (ZEMURON) injection PRN, Starting on Sun09/17/13 at 0737, Until Sun09/17/13 at 0941, Anesthesia Intra-op, Routine Given 09/17/2013 8:44 AM EST 20 mg Given 09/17/2013 7:37 AM EST 50 mg documented in this encounter Care Teams Tilesetter Relationship Specialty Start Date End Date Stefanie Joy, COMPUTER CONSULTANT [phone] [place] [address] PCP - General 05/08/13 11/26/16 documented as of this encounter
--- OUTSIDE RECORDS SUMMARY | 2024-05-07 02:55 | XMS_ITS | Encounter Summary ---
[place] [address] Care Team Providers Care Wheel Borer Name Role Phone SabinaAsmitajs aGrcia DO Primary Care Provider +1- [phone] Encounter Details Date Type Department Care Team (Latest Contact Info) Description 05/22/2019 12:30 PM EDT Laboratory Appointment Lab [address] [place] [address] S/P thyroidectomy; Multiple thyroid nodules Social History Tobacco Use Types Packs/Day Years [...] Date/Time Associated Diagnosis Comments HC VENIPUNCTURE Routine 05/22/2019 12:17 PM EDT S/P thyroidectomy Multiple thyroid nodules documented in this encounter Results * (ABNORMAL) TSH (05/22/2019 12:17 PM EDT) Thyroid Stimulating Hormone 0.08(L) 0.27 - 4.20 mcIU/mL [facility] Blood specimen (specimen) 05/22/2019 12:17 PM EDT 05/22/2019 12:31 PM EDT Narrative Resulting Agency Comment Spec In Lab Olive Liu MD CHEMISTRY ORDERAB LES Performing Organization Address City/State/[facility] Co de Phone Number [facility] [place] [address] documented in this encounter Visit Diagnoses Diagnosis S/P thyroidectomy Other postprocedural status Multiple thyroid nodules Nontoxic multinodular goiter documented in this encounter Care Teams Wheel Borer Relationship Specialty Start Date End Date Brittany Muhammad DO [address] [facility] [place] [address] PCP - General Family Medicine 01/23/19 documented as of this encounter
--- OUTSIDE RECORDS SUMMARY | 2024-05-07 02:55 | XMS_ITS | Encounter Summary ---
Author Organization [facility] [place] [address] Care Team Providers Care Ebd Special Education Teacher Name Role Phone Yulia Grullon APRN Primary Care Provider [phone] Encounter Details Date Type Department Care Team (Late st Contact Info) Description 01/22/2019 Ancillary Procedure [place] [address] Mark Anthony Watts MD [facility] [place] [address] [place] [address] Social History Tobacco Use Types Packs/Day Years [...] Procedure Name Priority Date/Time Associated Diagnosis Comments FILM LIBRARY STORAGE ONLY CT CHEST Routine 01/22/2019 12:00 AM EDT documented in this encounter Results * Film Library- Storage Only CT Chest (01/22/2019 12:00 AM EDT) Narrative RAD - 01/24/2019 5:50 PM EDT This exam is auto-finalizing. It's purpose is for storage only. Mark Anthony Watts MD IMG FILM LIBRARY ORDERABLES [place], [place] documented in this encounter Visit Diagnoses Not on filedocumented in this encounter Care Teams Ebd Special Education Teacher Relationship Specialty Start Date End Date Yulia Grullon, CAS [address] [place] [address] PCP - General Family Medicine 01/09/19 01/22/19 documented as of this encounter
--- OUTSIDE RECORDS SUMMARY | 2024-05-07 02:55 | XMS_ITS | Encounter Summary ---
Author Organization [facility] Address [facility] [place] [address] Care Team Providers Care Ampoule Sealer Name Role Phone Brittany Muhammad Primary Care Provider [phone] Encounter Details Date Type Department Care Team (Late st Contact Info) Description 04/07/2019 10:47 AM EDT Anesthesia Event [place] [address] Lizette Yanez MD [facility] [place] [address] Anesthesia Record Procedure Summary Procedure Name Responsible Anesthesiologist Anesthesia Start Time Anesthesia Stop Time THYROIDECTOMY, TOTAL OR COMPLETE (WRVU 15.04) (Neck) Lizette Yanez MD 04/07/19 1047 04/07/19 1346 Events Date Time Event Comment 04/07/2019 1042 1047 AN Verify 1047 Start 1053 An Start Data 1058 An Induction 1101 An Intubation 1102 Anesthesia Ready 1256 Quick Note BP artefact due to leaning on cuff. 1338 Extubation/LMA Out 1339 an stop data 1339 Recovery or ICU Handoff Belkis ent care was transferred to the destination unit staff after review of the patient's medical history, current anesthetic/surgical status and plan, according to the Provider Handoff Checklist. 1346 Stop Meds Name Total Midazolam 2 mg fentaNYL 100 mcg IV Lidocaine 100 mg Propofol 200 mg Rocuronium 20 mg PHENYLephrine 600 mcg Ondansetron 4 mg Dexamethasone 8 mg Succinylcholine 120 mg Propofol INF 670.76 mg REMIfentanil INF 2.63 mg ceFAZolin (ANCEF) 2g in dextrose 5% 100 mL 2 g PHENYLephrine INF 5,000 mcg Ketorolac 15 mg lactated ringers infusion 700 mL * Agents Name O2 Air N2O Sevoflurane (et) * Blood No blood administrations on file. Lines, Drains, and Airways Type Details Placement Removal Incision 09/17/13; lumbar spi ne; 05/29/22 ([facility] cleanup utility RA#[id number]); 1715 ([facility] cleanup utility RA#[id number]) 09/17/13 0000 by Flor Patrick RN 05/29/22 1715 by Joanna Ivory (RETIRED) Peripheral IV Line - Single Lumen 04/07/19; 1011; median vein (underside of arm), left; [id number] catheter system; 22 gauge; no longer indicated; 04/07/19; 1446 04/07/19 1011 by Odette Ferraro RN 04/07/19 1446 by Volodymyr Rosen RN ETT Mask Ventilation: Ea sy (1); ETT Type: Cuffed, Oral, NIM; ETT Size: 7 mm; Mac Blade: 3; Notes: Asleep, Pre-O2, Stylette; Attempts: 1; Laryngoscopy Grade: 1; ETT Placement Verified By: Auscultation, Capnometry, Visual; Secured at Teeth: 22 cm; Inserted by: Hema Slater MD; Removal Date: 04/07/19; Removal Time: 1338 04/07/19 1106 by Hema Slater MD 04/07/19 1338 by Lizette Yanez MD Incision 04/07/19; 1131; neck ; horizontal; 05/29/22 ([facility] cleanup utility RA#[id number]); 1715 ([facility] cleanup utility RA#[id number]) 04/07/19 1131 by Chelle Liu RN 05/29/22 1715 by Joanna Ivory documented in this encounter Social History Tobacco [...] OR Notes * Anesthesia Postprocedure Evaluation - Lizette Yanez MD - 04/07/2019 3:08 PM EDT Department of Anesthesiology Post-procedure Note Patient: Genie Alejandre Procedure Summary Date: 04/07/19 Room / Location: [address] MAIN OR Anesthesia Start: 1047 Anesthesia Stop: 1346 Procedures: THYROIDECTOMY, TOTAL OR COMPLETE (WRVU 15.04) (N/A Neck) FACIAL NERVE MONITORING, SETUP LARYNGEAL (WRVU 1.57) (N/A Neck) Diagnosis: (THYROID NODULE) Surgeon: Olive Liu MD Responsible Provider: Lizette Yanez MD Anesthesia Type: general ASA Status: 3 All Anesthesia Providers: Anesthesiologist: Lizette Yanez MD Ship Joiner: Hema Slater MD Vitals Value Taken Time BP 155/93 04/07/2019 2:15 PM Temp 36.3 ??C (97.3 ??F) 04/07/2019 1:42 PM Pulse 88 04/07/2019 1:42 PM Resp 14 04/07/2019 2:15 PM SpO2 95 % 04/07/2019 2:15 PM Pain Level Patient Location: PACU/[facility] Level of Consciousness: Awake and Alert Pain Management: Satisfactory Analgesia PONV: None Cardiovascular Status: At Baseline and Hemodynamically Stable Respiratory Status: At Baseline and Room Air Postoperative Fluid Status: Intravascular EUvolemia Possible Anesthetic Complications: NONE apparent at time of evaluation Final Primary Anesthesia Type: General (The anesthetic type performed was the same as planned.) Comments: Lizette Yanez MD * Anesthesia Preprocedure Evaluation - Lizette Yanez MD - 04/06/2019 11:05 AM EDT Pre-Anesthesia Evaluation for: Genie Alejandre a 43 y.o. female. Procedure(s): THYROIDECTOMY, TOTAL OR COMPLETE (WRVU 15.04) FACIAL NERVE MONITORING, SETUP LARYNGEAL (WRVU 1.57) Patient Active Problem List Diagnosis ??? Recurrent herniation of lumbar disc ??? HNP (herniated nucleus pulposus), lumbar ??? History of nephrolithiasis ??? 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 Psoriasis ??? Hypothyroid ??? Depression ??? CARLOS (obstructive sleep apnea) Past Medical History: Diagnosis Date ??? Hormone disorder 2012 Under active thyroid ??? Mental or behavioral problem 2002 PTSD, Depression ??? Skin disorder 2011 Psoriasis ??? Urinary disorder Oct 2003 Kidney stones Past Surgical History: Procedure Laterality Date ??? BLADDER SURGERY 2001 Kidney stone removal ??? PRG UNLISTED DIAGNOSTIC GASTROENTEROLOGY PROCEDURE 1992 Gallbladder removed ??? PRO LAMINOTOMY, LUMBAR DISK, 1 INTRSP 09/17/2013 LAMINOTOMY, DECOMPRESSION, FORAMINOTOMY, LUMBAR performed by Brock Trujillo MD at [facility] MAIN OR Social History Tobacco Use ??? Smoking status: Former Smoker Packs/day: 1.00 Years: 5.00 Pack years: 5.00 Types: Cigarettes Last attempt to quit: 10/01/2005 Years since quittin.5 ??? Smokeless tobacco: Never Used ??? Tobacco comment: quit 2006 Substance Use Topics ??? Alcohol use: Yes Comment: I drink only 3-4 times throughout the year Social History Substance and Sexual Activity Drug Use No No Known Allergies Medications: MAR and/or home medications have been reviewed. Physical Exam: There were no vitals filed for this visit. There is no height or weight on file to calculate BMI. Airway Assessment: Mallampati: II TM distance: >3 FB Neck ROM: full Cardiovascular Assessment: cardiovascular exam normal Pulmonary Assessment: pulmonary exam normal Dental Assessment: - normal exam Misc Assessment: Anesthesia Plan: ASA 3 general, with a(n) intravenous induction Genie Alejandre is a 43 YO 118 kg female w/ PMH significant for depression/PTSD (on disability), CARLOS(home CPAP), GERD (home pantoprazole), former smoker (5 PY, quit '06), hypothyroid and large left thyroid cyst (compressive symptoms, tracheal deviation) presenting for total thyroidectomy. Anesthesia hx: 2013 - easy mask, grade 1 view with mac 4. Nausea post-op. Plan: GETA w/ NIM tube, standard monitors, adequate IV access. Attending Assessment: Patient personally seen and examined. 43yo F morbidly obese, with thyroid cyst presenting for total thyroidectomy. PMH notable for CARLOS (not on CPAP), hypothyroidism, lumbar herniated disc s/p laminectomy 2012 (no leg weakness/paresthesia), h/o nephrolithiasis No cardiac or pulmonary problems. No recent URI. Well-controlled GERD (asymptomatic in preop). No problems with anesthesia in the past. Mac4 Gr1 in 2012. Denies PONV, denies motion sickness. Meds: reviewed, takes clonazepam only occasionally, took AM losartan, held HCTZ, took AM gabapentin, protonix NPO status adequate Plan: - preop Tylenol (patient took AM gabapentin 600) - standard ASA monitors, PIV - GETA with NIM ETT for recurrent laryngeal nerve monitoring, avoid intraoperative paralysis The patient was informed of the risks, benefits and alternatives of anesthesia. These risks included, but were not limited to, post-operative nausea and/or vomiting, pain, sore throat, dental/lip injury, and other rare but serious complications such as cardiac instability/arrest, neurologic event, awareness, severe allergic reactions, position-related nerve injuries, and need blood transfusions. All questions sought and answered. Consent was signed and placed in chart. Lizette Yanez MD 04/07/2019 Region - Other Informed Consent: Anesthetic plan and risks discussed with patient. Plan discussed with resident and attending. PAT Clinic Note documented in this encounter Miscellaneous Notes * Addendum Note - Lizette Yanez MD - 04/17/2019 3:09 PM EDT Addendum created 04/17/19 1509 by Lizette Yanez MD Sign clinical note documented in this encounter Plan of Treatment Not on file documented as of this encounter Visit Diagnoses Not on filedocumented in this encounter Administered Medications Inactive Administered Medications - up to 3 most recent administrations Medication Order MAR Action Action Date Dose Rate Site ceFAZolin (ANCEF) 2g in dextrose 5% 100 mL 2 g, Intravenous, EVERY 3 HOURS, 1 dose, First dose on Sun04/07/19 at 1015, Administer over 30 Minutes, Intra-Operative (Intra-Procedure), Indication for (Active or Suspected): Prophylaxis Given 04/07/2019 11:09 AM EDT 2 g dexamethasone (DECADRON) injection PRN, Starting on Sun04/07/19 at 1059, Until Sun04/07/19 at 1346, Anesthesia Intra-op, Routine Given 04/07/2019 10:59 AM EDT 8 mg fentaNYL 50 mcg/mL multi-dose injection PRN, Starting on Sun04/07/19 at 1058, Until Sun04/07/19 at 1346, Anesthesia Intra-op, Routine Given 04/07/2019 1:21 PM EDT 50 mcg Given 04/07/2019 10:58 AM EDT 50 mcg ketorolac (TORADOL) injection PRN, Starting on Sun04/07/19 at 1320, Until Sun04/07/19 at 1346, Anesthesia Intra-op, Routine Given 04/07/2019 1:20 PM EDT 15 mg lactated ringers infusion 1,000 mL, at 100 mL/hr, Intravenous, CONTINUOUS, Starting on Sun04/07/19 at 1015, Until Sun04/07/19 at 1346, Day of Surgery (Day of Procedure) New Bag 04/07/2019 10:28 AM EDT New Bag 04/07/2019 10:15 AM EDT 1,000 mLs 100 mL/hr lidocaine (PF) (XYLOCAINE) 100 mg/5 mL (2 %) injection PRN, Starting on Sun04/07/19 at 1058, Until Sun04/07/19 at 1346, Anesthesia Intra-op, Routine Given 04/07/2019 10:58 AM EDT 100 mg midazolam (PF) (VERSED) multi-dose injection PRN, Starting on Sun04/07/19 at 1047, Until Sun04/07/19 at 1346, Anesthesia Intra-op, Routine Given 04/07/2019 10:47 AM EDT 2 mg ondansetron (ZOFRAN) injection PRN, Starting on Sun04/07/19 at 1320, Until Sun04/07/19 at 1346, Anesthesia Intra-op, Routine Given 04/07/2019 1:20 PM EDT 4 mg PHENYLephrine (JASVIR-SYNEPHRINE) 20 mg in sodium chloride 250 mL (standard ADULT & Pedi greater than 20kg) infusion CONTINUOUS PRN, Starting on Sun04/07/19 at 1127, Until Sun04/07/19 at 1346, Anesthesia Intra-op, Routine Rate/Dose Change 04/07/2019 1:22 PM EDT 30 mcg/min 22.5 mL/hr Rate/Dose Change 04/07/2019 12:59 PM EDT 60 mcg/min 45 mL/ hr Rate/Dose Change 04/07/2019 12:50 PM EDT 50 mcg/min 37.5 m L/hr PHENYLephrine in NS (PF) (JASVIR-SYNEPHRINE) 0.8 mg/10 mL (80 mcg/mL) multi-dose injection Syrg PRN, Starting on Sun04/07/19 at 1106, Until Sun04/07/19 at 1346, Anesthesia Intra-op, Routine Given 04/07/2019 12:39 PM EDT 80 mcg Given 04/07/2019 11:22 AM EDT 80 mcg Given 04/07/2019 11:18 AM EDT 80 mcg propofol (DIPRIVAN) 10 mg/mL bolus injection (Anesthesia) PRN, Starting on Sun04/07/19 at 1059, Until Sun04/07/19 at 1346, Anesthesia Intra-op Given 04/07/2019 11:00 AM EDT 50 mg Given 04/07/2019 10:59 AM EDT 150 mg propofol (DIPRIVAN) infusion CONTINUOUS PRN, Starting on Sun04/07/19 at 1059, Until Sun04/07/19 at 1346, Anesthesia Intra-op, Routine Rate/Dose Change 04/07/2019 1:09 PM EDT 20 mcg/kg/min 14.2 mL/hr Rate/Dose Change 04/07/2019 11:14 AM EDT 40 mcg/kg/min 28. 4 mL/hr New Bag 04/07/2019 10:59 AM EDT 50 mcg/kg/min 35.5 mL/h r remifentanil (ULTIVA) 0.02 mg/mL IV infusion (ANESTHESIA) CONTINUOUS PRN, Starting on Sun04/07/19 at 1059, Until Sun04/07/19 at 1346, Anesthesia Intra-op Rate/Dose Change 04/07/2019 11:06 AM EDT 0.15 mcg/kg/min 53.2 mL/hr New Bag 04/07/2019 10:59 AM EDT 0.2 mcg/kg/min 71 mL/hr rocuronium (ZEMURON) multi-dose injection PRN, Starting on Sun04/07/19 at 1057, Until Sun04/07/19 at 1346, Anesthesia Intra-op, Routine Given 04/07/2019 10:57 AM EDT 20 mg succinylcholine chloride (Quelicin) injection PRN, Starting on Sun04/07/19 at 1059, Until Sun04/07/19 at 1346, Anesthesia Intra-op, Routine Given 04/07/2019 10:59 AM EDT 120 mg documented in this encounter Care Teams Ampoule Sealer Relationship Specialty Start Date End Date Brittany Muhammad DO [address] [place] [address] PCP - General Family Medicine 01/23/19 documented as of this encounter
--- OUTSIDE RECORDS SUMMARY | 2024-05-07 02:55 | XMS_ITS | Encounter Summary ---
Author Organization [facility] Address [facility] [place] [id number] Care Team Providers Care Felt Finishing Supervisor Name Role Phone MurielmagdyBrittany choi Primary Care Provider +1- [phone] Reason for Referral * Consultation (Routine) - Closed Specialty Diagnoses / Procedures Referred By Contac t Referred To Contact General Surgery Diagnoses Thyroid cyst Kenia Khanna MD [facility] DR [place] [address] Olive Liu MD [facility] [place] [address] Referral ID Status Reason Start Date Expiration Date V isits Requested Visits Authorized [id number] Closed Consult, Test & Treat 01/24/2019 01/24/2020 1 1 Reason for Visit * Consultation (Urgent) - Specialty Diagnoses / Procedures Referred By Contac t Referred To Contact Endocrinology Diagnoses thyroid mass Yulia Grullon APRN [address] [place] [address] [facility] Endocrinology [address] [place] [phone] Referral ID Status Reason Start Date Expiration Date V isits Requested Visits Authorized [id number] Consult, Test & Treat Connection Center 01/09/2019 01/09/2020 6 6 Encounter Details Date Type Department Care Team (Late st Contact Info) Description 01/23/2019 1:00 PM EDT Office [place] [address] Mark Anthony Watts MD [facility] [place] [address] Kenia Khanna MD [facility] DR [place] [address] Thyroid nodule; Thyroid cyst Social History Tobacco Use Types Packs/Day Years [...] Sign Reading Time Taken Comments Blood Pressure 143/85 01/23/2019 11:46 AM EDT Pulse 71 01/23/2019 11:46 AM EDT Temperature - - Respiratory Rate - - Oxygen Saturation - - Inhaled Oxygen Concentration - - Weight 114.3 kg (252 lb) 01/23/2019 11:46 AM EDT Height 157.5 cm (5' 2) 01/23/2019 11:46 AM EDT Body Mass Index 46.09 01/23/2019 11:46 AM EDT documented in this encounter Progress Notes * Kenia Khanna CW - 01/23/2019 1:00 PM EDT Subjective: Patient ID: Genie Alejandre is a 43 y.o. female. HPI Ms. Genie Alejandre is a 43 y/o female with a past medical hx significant for MDD, CARLOS, and R renal angiolipoma presenting in referral from Brittany B Krechetoff, DO for assessment of a large thyroidnodule. Genie reports that she first felt the lump about 2 months ago on the left side. It feels like there is some pressure over the isthmus lately- pt underwent CT scan 01/22/2019 with Pulmonology (Yinka) at [facility] which reportedly did have tracheal deviation and does endorse dyspnea.. Endorses dysphagia with the head turned to the left. Social Hx: Lives in [facility] Former smoker- quit in 2005 Infrequent alcohol use Lives with dog Family Hx: Family is not big on doctors No known thyroid ca Aunt with hypOthyroidism from Gerhard's in family Meds: Current Outpatient Medications: ??? levothyroxine (SYNTHROID) 88 mcg Tablet, , Disp: , Rfl: 0 ??? pantoprazole (PROTONIX) 20 mg Tablet, Delayed Release (E.C.), , Disp: , Rfl: 0 ??? losartan (COZAAR) 25 mg Tablet, Take 1 tab by mouth daily, Disp: , Rfl: 0 ??? gabapentin (NEURONTIN) 600 mg Tablet, take 1 tablet by mouth three times a day, Disp: , Rfl: 0 ??? hydroCHLOROthiazide (HYDRODIURIL) 12.5 mg Tablet, take 1 tablet by mouth once daily, Disp: , Rfl: 0 ??? clonazePAM (KLONOPIN) 1 mg tablet, Take 1 mg by mouth 2 times daily as needed., Disp: , Rfl: ??? multivitamin (THERAGRAN) tablet, Take 1 tablet by mouth daily., Disp: , Rfl: No biotin - No iodine Review of Systems Constitutional: Negative for unexpected weight change. HENT: Positive for trouble swallowing. Respiratory: Positive for shortness of breath. Saw pulmonology yesterday Skin: Positive for rash (acne on the mandible). Recent Results (from the past 24 hour(s)) TSH Result Value Ref Range TSH 2.85 0.27 - 4.20 mcIU/mL Basic Metabolic Panel (non-fasting) Result Value Ref Range Glucose Lvl 100 65 - 199 mg/dL BUN 16 8 - 18 mg/dL Creatinine 1.00 0.70 - 1.20 mg/dL Sodium 139 135 - 145 mmol/L Potassium 4.2 3.5 - 5.0 mmol/L Chloride 100 98 - 107 mmol/L CO2 28 22 - 31 mmol/L Anion Gap 11 5 - 15 mmol/L Calcium 9.9 8.5 - 10.5 mg/dL eGFR 68 >=60 mL/min/1.73 m?? eGFR 79 >=60 mL/min/1.73 m?? Objective:BP 143/85 Pulse 71 Ht 157.5 cm (5' 2) Wt 114.3 kg (252 lb) BMI 46.09 kg/m?? Physical Exam PHYSICAL EXAM: Vitals Office Visit from 01/23/2019 in Endocrinology at [place] Weight 114.3 kg (252 lb) Height 157.5 cm (5' 2) BSA (Calculated - sq m) 2.24 sq meters BMI (Calculated) 46.09 Heart Rate 71 BP 143/85 Gen: NAD, AAOx3, speaking full sentences, pleasant demeanor, obese habitus Skin: prominent comedones on the chin, neck, no acanthosis nigricans, no rashes, no bruising, no purple striae, no pretibial myxedema or hyperpigmentation Eyes: PERRL, EOMI, anicteric sclerae without injection, no proptosis or lid lag ENT: moist oral mucosa Neck: prominent L sided thyromegaly which improves following drainage Pulm: breathing comfortably on room air Cardiac: reg s1s2, no m/r/g MSK: 5/5 strength in all muscle groups of the upper and lower extremities, no LE edema Neuro: no tremor with outstretched hands Assessment and Plan: Ms. Genie Alejandre is a 43 y/o female with a past medical hx significant for MDD, CARLOS and renal angio-lipoma presenting with a substantial L sided thyroid cyst. At this time, she endorses both dyspnagia, particularly when the head is turned to the left, and some degree of dyspnea. She underwent CT chest yesterday with Pulmonology and was told there was tracheal deviation. I will obtain this imageif possible. Please see separate ultrasound report regarding the findings of the L sided cystic-solid nodule and an associated small, low suspicion R sided nodule. Today, we drained 55cc from the L sided cyst of non-viscous, likely colloid fluid. We did, however, discuss the fact that the fluid is quite likely to re-accumulate in the near future. I have placed a referral to general surgery for consideration of removal of the cyst given compressive symptomatology. Otherwise, pt is clinically and biochemically euthyroid. We will see her back given my concern for PCOS once the work-up and management of the cyst has been completed. #L sided >6cm cystic/solid nodule -pt is biochemically and clinically euthyroid at this time -s/p drainage of 55cc of likely colloid fluid from L cyst -await cytology and thyroseq testing of solid portion of L sided nodule -referral to general surgery placed -obtain CT images from 01/23/2019 #suspected PCOS -return to care following management of nodule Case discussed and seen with staff Medical Secretary Mark Anthony Watts MD. Called pt to let her knowresults of TSH and BMP. Kenia Khanna MD PGY-4 [facility] Endocrinology Fellow Pager #[phone] * Kenia Khanna - 01/23/2019 1:00 PM EDT ENDOCRINOLOGY THYROID ULTRASOUND REPORT Patient:Genie Alejandre, [id number] Date of exam: 01/23/2019 Indication: large L thyroid nodule Comparison: 12/30/2018 outside hospital thyroid ultrasound Performed by: Kenia Khanna MD, Mark Anthony Watts MD Real time images of the thyroid gland were obtained using a BK 3500Hz US machine. All measurements are given as Longitudinal/Sagittal x AP x Transverse. Right Lobe: The right lobe measures 3.2 x 1.7 x 0.81 cm, with slightly heterogeneous texture. Nodule #1: There is a solid, well circumscribed, isoechoic nodule measuring 1.9 x 0.87 cm, located in the right upper pole. There are no micro-calcifications or increased vascularity associated with this nodule. Left Lobe: Nodule #2 There is a predominantly cystic nodule measuring 6.5 x 2.3 x 4.5 cm, with a solid rim, comet tail-artifacts comprising the entire L lobe of the thyroid. This nodule does not contain micro-calcifications or possess increased vascularity. The solid portions are iso-echoic. Isthmus: The isthmus measures 0.80 cm. Lateral neck: The lateral neck contains no abnormal lymph nodes. Impression: Obtain fine needle aspiration of solid portion of nodule #2. Drain cystic portion of nodule #2. Plan: Await cytology, thyroseq of nodule #2. Given compressive symptomatology, referral to general surgery. * Kenia Khanna - 01/23/2019 1:00 PM EDT THYROID ULTRASOUND GUIDED BIOPSY PROCEDURE NOTE Indication: thyroid nodule >6cm in largest dimension Date: 01/23/2019 Informed consent was obtained after a discussion [...] patient's neck was/were prepared using isopropyl alchohol. 6 passes of a 25g needle were performed at each site. The needle placement was ultrasound guided. The needle was visualized in the nodule(s) in each pass. -Biopsy and drainage was performed of: -large L sided cystic thyroid nodule, largest dimension 6.5cm, 55cc of low viscosity, serous fluid was drained from the cyst The procedure was well tolerated by the patient without any complications. The patient was given a thyroid FNA post-procedure handout upon completion Representatives from pathology were present during the procedure. Kenia Khanna MD Endocrinology Fellow * Mark Anthony Watts MD - 01/23/2019 1:00 PM EDT I have seen the patient and reviewed Dr. Khanna's above history and I agree with the details as written. The assessment and plan were formulated in discussion with me and I agree with them as documented. I also directly supervised thyroid US and agree with the findings as written. Mark Anthony Watts MD, PhD, FACP, FACE documented in this encounter Plan of Treatment Scheduled Referrals Name Type Priority Associated Diagnoses Orde r Schedule Referral to General Surgery Outpatient Referral Routine Thyroid cyst Ordered: 01/24/2019 documented as of this encounter Procedures Procedure Name Priority Date/Time Associated Diagnosis Comments NON-PAYROLL HUMAN RESOURCES ASSISTANT FINAL REPORT Routine 01/23/2019 1:50 PM EDT TSH Routine 01/23/2019 1:11 PM EDT Thyroid nodule BASIC METABOLIC PANEL Routine 01/23/2019 1:11 PM EDT Thyroid nodule CYTOPATHOLOGY NON-GYNECOLOGICAL Routine 01/23/2019 8:28 AM EDT Thyroid nodule documented in this encounter Results * Non-Ict Quality Assurance Engineer Final Report (01/23/2019 1:50 PM EDT) Diagnosis Discussion [id number] ? Location: 5C The signing pathologist has (i) examined the relevant preparation(s) for the specimen(s) and (ii) rendered or confirmed the diagnosis(es). . ? Addendum ADDENDUM DISCUSSION SPECIAL TEST PERFORMED: Test: ??THYROSEQ [facility] Case: ??[id number] Performing Lab: ??THYROSEQ Performing Lab Case: ??[id number] Reported by Georgette Chapman MD Date reported: ??02/10/2019 For the full text of the Thyroseq report, please refer to the scanned doc tab in the electronic health record (eDH). Electronically signed by: ??Brianna Ortiz MD Verified: ??02/11/2019 ?Pathologist Performed at: ??-[facility] Dept. of Pathology, [place], [place] ? Non-Ict Quality Assurance Engineer Final DIAGNOSIS Atypia of Undetermined Significance Electronically signed by: ??Angel TAVARES, Brianna Perrin Verified: ??01/27/2019 ?Pathologist Performed at: ??-[facility] Dept. of Pathology, [facility] [place], [place] DISCUSSION Thyroid, left (US-guided FNA, assisted): Atypia of Undetermined Significance (see note). Paucicellular aspirate containing a few atypical but poorly preserved follicular cells. Note: Cell block was examined. Clinical correlation is recommended. Molecular testing is pending and results will be reported subsequently. Reference: Jono MCFADDEN, Gilbert ES. The [facility] System for Reporting Thyroid Cytopathology. [place]: Guillen; 2018. CLINICAL INFORMATION Specimen Source : Thyroid, left (US-guided FNA, assisted) Pertinent Clinical Data and Significant Therapy: L sided thyroid nodule >4cm in largest dimension. Clinical Impression: Thyroid nodule Pertinent Radiologic Findings: (not provided) Gross Description: . CLINICAL INFORMATION Received in CytoLyt approximately 15 mL total volume of clear, pink fluid, with light flecks. Total Preparation: Liquid-Based Prep 1; Diff-Quik 2; Pap Stain 2. A separate sample was received for potential molecular testing. Fine Needle Aspiration Immediate Assessment: Evaluation Episode #1 (2 slides): Inadequate for final diagnosis. Blood, ultrasound gel, rare follicular cells. Immediate Assessment by: Brianna Ortiz MD. Note: The above attending cytopathologist personally examined the Immediate Assessment slides and rendered the Immediate Assessment. Such assessments are preliminary; see Diagnosis and Discussion for final interpretation. 02/11/2019 8:51 AM EDT [facility] THYROID STRUCTURE / Unknown 01/23/2019 1:50 PM EDT 01/23/2019 1:50 PM EDT Mark Anthony Watts MD PATHOLOGY/CYTOLOG Y ORDERABLES [facility] [place] [address] * Basic Metabolic Panel (non-fasting) (01/23/2019 1:11 PM EDT) Glucose 100 65 - 199 mg/dL [facility] Comment:Diabetes: >=200 mg/d L plus symptoms Blood Urea Nitrogen 16 8 - 18 mg/dL [facility] Creatinine 1.00 0.70 - 1.20 mg/dL [facility] Sodium 139 135 - 145 mmol/L [facility] Potassium 4.2 3.5 - 5.0 mmol/L [facility] Comment: Please note: ??Patients with WBC >100,000 may have falsely elevated Potassium levels. ??For accurate Potassium quantification in these patients send serum separator tube (gold top) for subsequent determinations. ??Contact the Clinical Chemistry Laboratory if there are any questions. Chloride 100 98 - 107 mmol/L [facility] Carbon Dioxide 28 22 - 31 mmol/L [facility] Anion Gap 11 5 - 15 mmol/L [facility] Calcium 9.9 8.5 - 10.5 mg/dL [facility] Est Glomerular Filtration Rate 68 >=60 mL/min/1. 73 m?? [facility] Comment: The eGFR was calculated using the CKD-EPI equation. As with all creatinine based estimates of kidney function, eGFR values calculated with the CKD-EPI equation are not accurate in patients with acute kidney failure, extremes of body mass or the acutely ill. [email or web address] eGFR 79 >=60 mL/min/1. 73 m?? [facility] Comment: The eGFR was calculated using the CKD-EPI equation. As with all creatinine based estimates of kidney function, eGFR values calculated with the CKD-EPI equation are not accurate in patients with acute kidney failure, extremes of body mass or the acutely ill. [email or web address] Blood specimen (specimen) 01/23/2019 1:11 PM EDT 01/23/2019 1:22 PM EDT Narrative Resulting Agency Comment Spec In Lab Mark Anthony Watts MD CHEMISTRY ORDERAB LES [facility] [place] [id number] * TSH (01/23/2019 1:11 PM EDT) Thyroid Stimulating Hormone 2.85 0.27 - 4.20 mcIU/mL [facility] Blood specimen (specimen) 01/23/2019 1:11 PM EDT 01/23/2019 1:22 PM EDT Narrative Resulting Agency Comment Spec In Lab Mark Anthony Watts MD CHEMISTRY ORDERAB LES Performing Organization Address City/[facility]/ZIP Co de Phone Number [facility] [place] [address] * Cytopathology Non-Gynecological (01/23/2019 8:28 AM EDT) AP Specimen 01/23/2019 8:28 AM EDT 01/23/2019 8:28 AM EDT Narrative [facility] - 01/23/2019 8:28 AM EDT Specimen requisition ordered. ??Separate Pathology report to follow Mark Anthony Watts MD PATHOLOGY/CYTOLOG Y ORDERABLES Performing Organization Address City/[facility]/[place] [address] documented in this encounter Visit Diagnoses Diagnosis Thyroid nodule Nontoxic uninodular goiter Thyroid cyst Cyst of thyroid documented in this encounter Care Teams Felt Finishing Supervisor Relationship Specialty Start Date End Date Brittany Muhammad DO [address] [place] [address] PCP - General Family Medicine 01/23/19 documented as of this encounter
--- OUTSIDE RECORDS SUMMARY | 2024-05-07 02:55 | XMS_ITS | Encounter Summary ---
[place] [address] Care Team Providers Care Disc Pad Knockout Worker Name Role Phone Stefanie Joy APRN Primary Care Provider +1- [phone] Encounter Details Date Type Department Care Team (Late st Contact Info) Description 03/20/2014 Telephone [place] [phone] Nicole Hansen V Social History Tobacco Use Types Packs/Day Years [...] encounter Miscellaneous Notes * Telephone Encounter - Nicole Hansen V - 03/20/2014 9:02 AM EDT Left message for pt to call back regarding upcoming appts documented in this encounter Plan of Treatment Not on file documented as of this encounter Visit Diagnoses Not on filedocumented in this encounter Care Teams Disc Pad Knockout Worker Relationship Specialty Start Date End Date Stefanie Joy APRN [phone] [place] [address] PCP - General 05/08/13 11/26/16 documented as of this encounter
--- OUTSIDE RECORDS SUMMARY | 2024-05-07 02:55 | XMS_ITS | Encounter Summary ---
[place] [address] Care Team Providers Care Sugar Reprocess Operator Head Name Role Phone Stefanie Joy APRN Primary Care Provider +1- [phone] Encounter Details Date Type Department Care Team (Late st Contact Info) Description 03/19/2014 Telephone [place] [phone] Nicole Hansen V Social History Tobacco Use [...] Telephone Encounter - Nicole Hansen V - 03/19/2014 1:23 PM EDT MRI safety questions reviewed documented in this encounter Plan of Treatment Not on file documented as of this encounter Visit Diagnoses Not on filedocumented in this encounter Care Teams Sugar Reprocess Operator Head Relationship Specialty Start Date End Date Stefanie Joy APRN [phone] [place] [address] PCP - General 05/08/13 11/26/16 documented as of this encounter
--- OUTSIDE RECORDS SUMMARY | 2024-05-07 02:55 | XMS_ITS | Encounter Summary ---
Author Organization [facility] Address [facility] [place] [address] Care Team Providers Care Metal Machinist Name Role Phone RubioBrittany reynolds Jose BARRETO Primary Care Provider [phone]- [phone] Reason for Visit * Reason Comments Establish Care * Consultation (Routine) - Closed Specialty Diagnoses / Procedures Referred By Cash reese Referred To Contact General Surgery Diagnoses Thyroid cyst Kenia Khanna MD [facility] [place] [address] Olive Liu MD [facility] [address] Referral ID Status Reason Start Date Expiration Date V isits Requested Visits Authorized [id number] Closed Consult, Test & Treat 01/24/2019 01/24/2020 1 1 Encounter Details Date Type Department Care Team (Late st Contact Info) Description 02/27/2019 10:15 AM EDT Office [place] [address] Olive Liu MD [facility] [address] Multiple thyroid nodules Social History Tobacco Use [...] Sign Reading Time Taken Comments Blood Pressure 137/83 02/27/2019 10:08 AM EDT Pulse 84 02/27/2019 10:08 AM EDT Temperature 36.7 ??C (98 ??F) 02/27/2019 10: 08 AM EDT Respiratory Rate 12 02/27/2019 10:0 8 AM EDT Oxygen Saturation 100% 02/27/2019 10: 08 AM EDT Inhaled Oxygen Concentration - - Weight 117.8 kg (259 lb 9.6 oz) 019 10:08 AM EDT Height 157.5 cm (5' 2) 02/27/2019 10:0 8 AM EDT Body Mass Index 47.48 02/27/2019 10:08 AM EDT documented in this encounter Progress Notes * Olive Liu MD - 02/27/2019 10:15 AM EDT Endocrine Surgery Initial Consultation HPI: Ms. Genie Alejandre is a 43 y.o. year old female referred by Dr. Khanna who presents for evaluation of a large left thyroid cyst. This was initially noted by the [place], [place] causing tracheal deviation. She reports compressive symptoms including dyspnea, globus sensation, voice changes and positional dysphagia (can't swallow when tur ns her head to the left). She denies symptoms of hyperthyroidism or hypothyroidism, and recent thyroid function tests have been normal. There is not personal history of radiation exposure, and the patient has not had prior anterior neck surgery. There is not family history of endocrine tumors or mal ignancy, but her sisters have thyroid issues. Imaging studies to date include thyroid [facility] [place] 1.9[place] in the right thyroid and the predominantly cystic nodule measuring >6cm occupying most of the left thyroid. There is not a reported substernal component. Fine needle aspiration biopsy of the solid component of the mass has been performed by endocrinology and cytology was atypia of undetermined significance ([place] 3). Molecular testing was attempted, but there was not adequate material for ThyroSeq. In addition, 55cc of serous fluid was drained from the cyst. The patient states that she did have some relief of the globus sensation after this procedure, but it since feels like it filled up again. She is now referred to me for consideration of surgical management of her thyroid disease. Of note,she has a history of kidney stones, but her serum calcium is normal. Past Medical History: Diagnosis Date ??? Hormone [...] LUMBAR performed by Brock Trujillo MD at [facility] MAIN OR Current Outpatient Medications on File Prior to Visit Medication Sig Dispense Refill ??? SUMAtriptan (IMITREX) 50 mg Tablet 0 ??? levothyroxine (SYNTHROID) 88 mcg Tablet 0 ??? pantoprazole (PROTONIX) 20 mg Tablet, Delayed Release (E.C.) 0 ??? losartan (COZAAR) 25 mg Tablet Take 1 tab by mouth daily 0 ??? gabapentin (NEURONTIN) 600 mg Tablet take 1 tablet by mouth three times a day 0 ??? hydroCHLOROthiazide (HYDRODIURIL) 12.5 mg Tablet take 1 tablet by mouth once daily 0 ??? clonazePAM (KLONOPIN) 1 mg tablet Take 1 mg by mouth 2 times daily as needed. ??? multivitamin (THERAGRAN) tablet Take 1 tablet by mouth daily. No current facility-administered medications on file prior to visit. No Known Allergies Family History: No thyroid cancer. No pituitary, pancreas or adrenal tumors. No parathyroid disease. One sister has an enlarged thyroid and another sister with Gerhard's diagnosis. Social History: Quit smoking in 2005. Rare EtOH. Not working, is on disability. Lives alone with her dog, but has supportive neighbors in the same building. She does not do any professional public speaking or singing. Review of Systems - 10 of 14 systems were reviewed with the patient and were negative except as perHPI Most Recent Vitals: 02/27/19 1008 BP: 137/83 Pulse: 84 Resp: 12 Temp: 36.7 ??C (98 ??F) SpO2: 100% PainSc: 0 - No pain Body mass index is 47.48 kg/m??. Physical Exam: General: well-appearing, NAD Neuro: Alert and oriented x 3. Cranial nerves II-XII grossly intact. Eyes: no lid lag or proptosis ENT: Moist mucus membranes. Trachea shifted to the right Thyroid: markedly enlarged on the left. Mobile with swallowing. Lymph: No palpable cervical lymphadenopathy CV: RRR Respiratory: Normal respiratory effort. Lungs clear bilaterally. Extremities well-perfused without edema Skin: warm and dry. No rashes Psych: appropriate affect Labs: Lab Results Component Value Date TSH 2.85 01/23/2019 Imaging: Thyroid, Parathyroid and Cervical Ultrasound I performed a thyroid, parathyroid and cervical ultrasound at the time of the clinic visit today using the 12 mHz linear ultrasound transducer. The thyroid, parathyroid and central and bilateral lateral neck lymph node basins were evaluated. Thyroid Isthmus: Thickness: 0.20 cm Nodules: none Right lobe: Lobe: 4.46 x 1.47 x 1.16 cm Nodules: There is a isoechoic/slightly hyperechoic nodule measuring 1.86 x 0.86 x0.87 cm. It has well-defined borders. There are not microcalcifications. There is no/low vascularity Left lobe: Lobe: 8.28 x 3.16 x 5.54 cm Nodules: nearly the entire lobe is replaced with a cystic nodule that has an isoechoic rim as well as some hyperechoic foci that appear to have comet-tail artifacts Cervical lymph nodes Central neck: Normal ultrasonographic appearing lymph nodes. Right lateral neck: Normal ultrasonographic appearing lymph nodes. Left lateral neck: Normal ultrasonographic appearing lymph nodes. A/P: Ms. Genie Alejandre is a 43 y.o. year old female with a large cystic left- sided thyroid nodule with fluid that has reaccumulated and FNA demonstrating atypia of undetermined significance ([place] 3) cytology in a paucicellular specimen of the solid component. She also has a 1.9cm nodule in the right thyroid that does not technically meet criteria for biopsy. However, I did recommend consideration of FNA of the right-sided nodule prior to proceeding with surgery if she was inclined to have a left lobectomy only. However, she prefers to go ahead with a total thyroidectomy, as she would like to avoid the need for further surveillance. She understands that this will commit her to lifelong thyroid hormone replacement. I discussed the risks of thyroidectomy including, but not limited to,laryngeal nerve injury resulting in voice changes or hoarseness, low calcium due to damage or removal of one or more parathyroid glands, bleeding which may require return to the operating room, post-operative infection and other complications related to anesthesia. The patient's questions were answered, and consent was obtained today. We will schedule surgery for the next mutually convenient date. Even though she lives alone, she states that she has good support within her building and stronglyprefers to go home same day. We will plan for this, but she understands she may need to be admittedfor observation if there are any concerns while she is in recovery. [facility] Data Body mass index is 47.48 kg/m??. Race: Patient Ethnicity & Race Ethnic Group Patient Race Not nor White Prior neck irradiation: no Prior anterior neck surgery: no Pre-operative laryngoscopy: no Anti-coagulation meds (aspirin, warfarin, clopidogrel, heparin, oral thrombin or factor Xa inhibitors): no Substernal component: no Symptoms of compression: yes FNA: yes FNA Classification: [place] 3 documented in this encounter Plan of Treatment Not on file documented as of this encounter Visit Diagnoses Diagnosis Multiple thyroid nodules Nontoxic multinodular goiter documented in this encounter Care Teams Metal Machinist Relationship Specialty Start Date End Date Brittany Muhammad DO [address] [place] [address] PCP - General Family Medicine 01/23/19 documented as of this encounter
--- OUTSIDE RECORDS SUMMARY | 2024-05-07 02:55 | XMS_ITS | Encounter Summary ---
Author Organization [facility] Address [facility] [place] [address] Care Team Providers Care Development Technician Name Role Phone Brittany Muhammad DO Primary Care Provider [phone]- [phone] Encounter Details Date Type Department Care Team (Late st Contact Info) Description 02/10/2019 External Results Medical Records [facility] [place] [id number] Provider, Scanning Social History Tobacco Use Types Packs/Day Years [...] Procedure Name Priority Date/Time Associated Diagnosis Comments CYTOLOGY SCAN Routine 02/10/2019 documented in this encounter Results * Scan Doc: Cytology (02/10/2019) Mark Anthony Watts MD MEDIA MGR SCAN EX T ORDR/RSLT documented in this encounter Visit Diagnoses Not on filedocumented in this encounter Care Teams Development Technician Relationship Specialty Start Date End Date KreBrittany nieves DO [address] [place] [place] [address] PCP - General Family Medicine 01/23/19 documented as of this encounter
--- OUTSIDE RECORDS SUMMARY | 2024-05-07 02:55 | XMS_ITS | Encounter Summary ---
Author Organization [facility] Address [facility] [place] [address] Care Team Providers Care Switcher Name Role Phone RubioBrittany reynolds Jose BARRETO Primary Care Provider [phone] Encounter Details Date Type Department Care Team (Latest Contact Info) Description 04/07/2019 9:00 AM EDT - 04/07/2019 2:47 PM EDT Hospital Encounter [place] [address] Amara Shultz MD [facility] [place] [address] Discharge Disposition: Home Social History Tobacco Use [...] Sign Reading Time Taken Comments Blood Pressure 155/93 04/07/2019 2:15 PM EDT Pulse 88 04/07/2019 1:42 PM EDT Temperature 36.3 ??C (97.3 ??F) 04/07/2019 1:42 PM ED T Respiratory Rate 14 04/07/2019 2:15 PM EDT Oxygen Saturation 95% 04/07/2019 2:15 PM EDT Inhaled Oxygen Concentration - - Weight 118.3 kg (260 lb 12.8 oz) 04/07/2019 9:48 AM EDT Height 157.5 cm (5' 2) 04/07/2019 9:48 AM EDT Body Mass Index 47.7 04/07/2019 9:48 AM EDT documented in this encounter Discharge Instructions * Patient Instructions* Kayla Mckeon MD - 04/07/2019 1:44 PM EDT TOTAL THYROIDECTOMY PATIENT DISCHARGE INSTRUCTIONS What to Expect Following Surgery: Swelling and/or bruising under and around the incision is normal. It is usually greatest on the second or third day following surgery. You may also feel the sensation of swelling or firmness that canlast for a month or more Your scar will be most visible for 1-2 months following your operation and will gradually fade overthe next 6-8 months. As it heals, a scar often looks more pink or red than the skin around it. You may feel a ???healing ridge?? directly under the incision. This is completely normal and is the result of swelling, healing, and scar formation. Usually, this will go away when healing is complete in 3-6 months. The skin just above and below your incision will feel numb. This will improve over several months but some patients may have a long-term decrease in sensation over these areas. You may notice minor difficulty in swallowing which will improve over time. Your voice may be hoarse or weak at first--this is normal and does not mean there was damage done to the nerves that make the vocal cords move. Your voice will usually go back to normal after severaldays to a few weeks. Incision Care: Neck incisions heal rapidly--usually within a week or two. The incision can get wet in the shower 24 hours after surgery. However, do not submerge the incision underwater (i.e. bath tub, swimming pool, hot tub, etc.) for at least 2 weeks after your operation. Pat the incision dry immediately following your shower. Do not scrub the area vigorously for the next 2 weeks. You have a skin glue closure, and you may notice tiny pieces of yellow/white/chacon material on your washcloth or there may be a thin clear or purplish/chacon crust around the edges of the incision. Thisis normal. The glue will start to come off about a week after surgery. Do not pull off the skin glue in order to allow time for the incision to heal completely. If there is still some glue on your skin 2 weeks after surgery, you may gently wash it away. Do not use any ointments/salves/Vitamin E on the incision for 2 weeks as these may impair early wound healing. After 2 weeks (and after the skin glue is gone), you may apply vitamin E oil or scar creams to the incision. Gentle massage may help soften your scar tissue. Incisions are sensitive to sunlight. For at least 1 year after surgery you should use sunscreen when outdoors for long periods of time to prevent permanent darkening of the scar. This includes tanning booths. Pain Management: You may apply ice or cold packs to the incision for 15-20 minutes several times a day for the first2-3 days following surgery to help with discomfort. You may feel some stiffness/soreness in your shoulders, back, and neck. This may take a few days orweeks to go away completely. You may use moist warm heat, a heating pad, or massage to these areas for 15-20 minutes several times a day. Do not be afraid to move your neck - gently flexing and stretching your neck muscles and light massage will help prevent stiffness NSAIDs (non-steroidal anti-inflammatory drugs) such as ibuprofen (Motrin, Advil) and naproxen (Naprosyn, Aleve) or acetaminophen (Tylenol) are most helpful for the pain experienced after surgery. Generally, these are even more effective than the stronger pain medications (narcotics or opioids) after thyroid surgery. Take NSAIDS and/or Tylenol every 6 hours [id number] for the first 3-5 days following surgery to help minimize pain. It is unusual to require opioid pain medications after thyroid surgery. If you were prescribed oxycodone, use only for severe pain, and never take with alcohol. Opioid medications typically cause constipation, so we suggest using a stool softener in addition (metamucil, colace...etc.). Diet & Activity: No restrictions in your diet are necessary. Activity as tolerated by your comfort level. You may return to work as soon as you would like. However, if your job requires heavy lifting or strenuous physical activity, your surgeon may ask you to wait to return to work for two weeks. NO DRIVING for at least 8 hours following any dose of an opioid pain medication if one was prescribed for you. Thyroid Hormone: If you had a total thyroid operation, you will be prescribed thyroid hormone replacement (levothyroxine, synthroid, levothroid) to take daily. Take this at the same time each day. You should take your thyroid hormone on an empty stomach and by itself. If possible, avoid taking your calcium supplementation or any other medication within one hour of taking your thyroid hormone pill. A blood test will performed in approximately 6 weeks (the same day as your follow-up visit) to ensure dosing is correct for you. Pathology Report: All specimens removed at surgery are analyzed by a pathologist. This report usually takes approximately 5-7 business days to be ready. Dr. Shultz will call you with this report as soon as it is available. Follow-up Appointment: Will be scheduled with Dr. Shultz in 6 weeks Date and time as well as any required labs will be mailed to you Please call [phone] to confirm the date and time of your appointment if you do not hear from us in the next 2 weeks Call Doctor for: Call if you have trouble talking or breathing (call 911 if this is severe) Call if you develop numbness or tingling around your mouth/lips or on the tips of your fingers or your hands, as this may mean your calcium is low. This may also be related to pain medication, where the breathing tube was positioned against your lips, the positioning of your arms and hands in the operating room, or how you were positioned when sleeping. If the sensation does not go away within a half hour, or if it worsens prior to that, call us immediately so we can discuss increasing your calcium if we think you need it. Call if your incision becomes red or begins to drain fluid. Call if you have fevers greater than 101 degrees F Call if you have persistent nausea or vomiting (this may be related to opioid pain medications). Call if you begin feeling worse, rather than better, several days after surgery. Information about Calcium Supplementation WHAT IS THE EFFECT OF SURGERY ON MY CALCIUM LEVELS? The parathyroid glands are responsible for controlling the body???s calcium levels, and they frequently do not work perfectly after surgery on the thyroid. This can result in a decrease in blood calcium levels. This is usually temporary and the parathyroid glands almost always make a full recovery. ??? WHAT ARE THE SYMPTOMS OF LOW CALCIUM? If the calcium level in the blood stream decreases after surgery, you may experience symptoms of numbness, tingling, or cramps in the fingers, toes, legs, or around the mouth. ??? WHAT ARE CALCIUM SUPPLEMENTS? Each over the counter calcium supplement tablet is approximately 500-600 mg. ??? There are several different types of calcium sold over the counter. Some of the more common brands you will see include: Tums, Viactiv, Citracal, Caltrate. ??? The two main forms of calcium in supplements are carbonate and citrate. Calcium carbonate (Tums, Viactiv) is absorbed most efficiently when taken with food, whereas calcium citrate (Citracal) is absorbed equally well when taken with or without food. ??? HOW MUCH CALCIUM SHOULD I TAKE AFTER SURGERY? The exact dose of calcium that is right for you after surgery depends on several factors including the type and extent of surgery. ??? After a total thyroidectomy, most patients will temporarily require some extra calcium as the parathyroid glands recover. ??? You probably already purchased calcium supplements after reviewing your preoperative handout. ??? A good guideline is to start with 600-1200 mg (1-2 over the counter supplements) twice a day. If you notice symptoms of numbness/tingling, you may need to take it more frequently (up to 3-4 timesper day). If you have no symptoms, the dose can be gradually decreased and the extra calcium stopped altogether within a few days of surgery. ??? WHAT ABOUT VITAMIN D? Vitamin D can be very helpful with calcium levels, as adequate vitamin D stores in the body help your body absorb calcium. ??? If you were on Vitamin D prior to surgery, this can be resumed post-operatively. ??? Additional Vitamin D may be included in your calcium supplement, this is fine as well. ??? If you are not on Vitamin D and would like to start after surgery, an over the counter supplement of 400-800 IU is the usual recommended dosage, however, if you are on other medications or have other health issues, you will want to discuss this with your PCP. ??? If your surgeon is concerned about your calcium levels, (s)he may prescribe a different form ofvitamin D called Rocaltrol (Calcitriol). This should be taken as instructed. Note that this is not a replacement for calcium, it should be taken in addition to the recommended calcium supplements to help with absorption. COMMONLY ASKED QUESTIONS: ??? Are there side effects to calcium supplements? The most common side effect is constipation and stomach upset. If you are taking high doses of calcium after surgery, be sure to include a stool softener or laxative as needed. Minimize narcotics, as these can also cause constipation. Finally, decrease your calcium supplements if you note no symptoms of low calcium as noted above. Do I need a blood test after surgery to check my calcium levels? No, not usually. Our body will signal us that the calcium level is low with the symptoms noted above. If you do not have these symptoms, then most likely your calcium level is just fine. Phone number for questions: [phone] before 5 PM on weekdays [phone] after 5 PM and on weekends/holidays. Ask for the general surgery resident chain sales consultant. documented in this encounter Medications at Time of Discharge Medication Sig Dispensed Refills Start Date End Date SUMAtriptan (IMITREX) 50 mg Tablet 0 01/30/2019 01/26/2023 levothyroxine (SYNTHROID) 88 mcg Tablet 0 12/06/2018 04/11/2019 pantoprazole (PROTONIX) 20 mg Tablet, Delayed Release (E.C.) 40 mg 2 times daily. 0 12/06/201803/30 losartan (COZAAR) 25 mg Tablet Taking 1/2 tablet 0 12/06/2018 01/26/2023 gabapentin (NEURONTIN) 600 mg Tablet 2 times daily. 0 01/10/2019 03/11/2020 hydroCHLOROthiazide (HYDRODIURIL) 12.5 mg Tablet take 1 tablet by mouth once daily 0 11/20/2018 10/24/2019 clonazePAM (KLONOPIN) 1 mg tablet Take 1 mg by mouth 2 times daily as needed. 03/11/2020 multivitamin (THERAGRAN) tablet Take 1 tablet by mouth daily. 03/11/2020 documented as of this encounter Progress Notes * Volodymyr Rosen RN - 04/07/2019 2:46 PM EDT Patient and sister stated understanding of discharge instructions and had no questions at this time. documented in this encounter H&P Notes * Kayla Mckeon MD - 04/07/2019 10:23 AM EDT Surgery Interval H&P ID: Genie Alejandre is a 43 y.o. female with a history of hypothyroidism, nephrolithiasis and depression who is here for total thyroidectomy. No changes in health since her last clinic visit with Dr. Shultz on 02/27/19 Physical Exam Patient Vitals for the past 24 hrs: BP Temp Temp src Pulse Resp SpO2 Height Weight 04/07/19 0948 132/80 36.4 ??C (97.5 ??F) Temporal 75 16 99 % 157.5 cm (5' 2) 118.3 kg (260 lb 12.8oz) Gen: NAD, A&O Cardiac: Regular rate Pulm: Unlabored on RA Abd: Soft, NTND Ext:Well perfused extremities A/P: Genie Alejandre is a 43 y.o. female who presents for the reasons listed above. Procedure and risks have been explained to the patient including bleeding, hypocalcemia, recurrent laryngeal nerve injury, infection, damage to surrounding structures and need for additional procedures. All questions were answered. Informed consent has been obtained in clinic on 02/27/19. Pt is ready for the OR. Kayla Mckeon MD 04/07/2019 10:33 AM documented in this encounter Miscellaneous Notes * Op Note - Amara Shultz MD - 04/07/2019 1:22 PM EDT [facility] Operative Note Patient Name: Genie Alejandre : [id number] MR#: [id number] Case Date: 04/07/2019 Surgeon: Surgeon(s) and Role: * Amara Shultz MD - Primary * Kayla Mckeon MD - Resident Preoperative diagnosis: THYROID NODULE Postoperative diagnosis: THYROID NODULE Procedure(s) (LRB): THYROIDECTOMY, TOTAL OR COMPLETE (WRVU 15.04) (N/A) FACIAL NERVE MONITORING, SETUP LARYNGEAL (WRVU 1.57) (N/A) Anesthesia: General Estimated Blood Loss: 23cc Specimens removed during surgery: Order Name Source Comment Collection Info Order Time SPECIMEN TO PATHOLOGY [id number] THYROID NODULE left lobe of thyroid resection 04/07/2019 12:22 PM Time specimen removed from patient: 12:22 PM Number of tissue samples (in container) 1 SPECIMEN TO PATHOLOGY [id number] THYROID NODULE right lobe of thyroid excision 04/07/2019 1:05 PM Time specimen removed from patient: 1:04 PM Number of tissue samples (in container) 1 Drains: Surgical Closure: Primary Closure - skin incision is completely closed without any wires, anita, drains or other devices Disposition: awakened from anesthesia, extubated and taken to the recovery room in a stable condition, having suffered no apparent untoward event. Condition: doing well without problems (Please see the Surgical Encounter Summary for any Implant and Specimen details pertinent to this patient.) HPI/Surgical Indications: Ms. Genie Alejandre is a 43 y.o. year old female with a large cystic left-sided thyroid nodule with fluid that has reaccumulated and FNA demonstrating atypia of undetermined significance ([place] 3) cytology in a paucicellular specimen of [...] commit her to lifelong thyroid hormone replacement. Procedure Description: The patient was correctly identified in the preoperative holding area. The risks, benefits, and indications of a thyroidectomy were reviewed with the patient. She was then taken to the operating room and placed on the operating table in the supine position and an identification procedure was performed. Adequate general anesthesia was achieved by anesthesiology with the FOBOtronic recurrent laryngeal nerve monitoring system. A natural crease in the anterior neck was marked with a marking pen. This area was infiltrated with 0.25% Sensorcaine with epinephrine. The patient'santerior neck was then prepped and draped in sterile fashion. A timeout procedure was done and all members of the OR team were in agreement. We made a curvilinear incision along the previously marked crease with a scalpel. The incision was carried down through the subcutaneous tissue and platysma muscle using electrocautery. Subplatysmal flaps were created in the cranial and caudal directions. The median raphe of the strap muscles was id entified and this was divided in vertical fashion using electrocautery. This exposed the thyroid gland, which was from its lateral attachments to the strap muscles on the left side using electrocautery. The middle thyroidal veins were ligated with 3-0 silk sutures and Harmonic scalpel. The lobe was markedly enlarged and replaced by a large 6-7cm fleshy nodule. Because of its size, we couldn't easily reach the inferior extent, so the superior thyroid vessels were identified and dividedusing a combination of hand ties and harmonic scalpel. That gave us improved medial mobility of thegland, allowing us to retract it in order to visualize the inferior pole. We then took down the infe rior pole thyroid vessels with a combination of 2-0 and 3-0 silk sutures and Harmonic scalpel. We then identified the recurrent laryngeal nerve as it ran in the tracheoesophageal groove and followed this up to ligament of Lyles, ligating vessels to expose the nerve's anterior surface. The left upper parathyroid gland was seen and preserved on its vascular pedicle. We then divided the attachments of the ligament of Lyles with sharp dissection and 3-0 silk sutures and divided the attachments of the thyroid off the pretracheal fascia past the midline with electrocautery. We divided the thyroid through its isthmus using the Harmonic scalpel and sent the specimen to pathology. The recurrent laryngeal nerve remained intact throughout. We performed an identical procedure on the right thyroid lobe, which was a normal size. There was asmall palpable nodule within it, and the muscle attachments to the gland were grossly consistent with thyroiditis. Again, the right upper parathyroid gland was identified and preserved. The right inferior gland was not seen. The recurrent laryngeal nerve was fully functional upon completion. The right thyroid specimen was removed, marked with a suture on the upper pole and sent to pathology. We then irrigated the operative field. A Valsalva to 30 millimeters of mercury was accomplished by Anesthesia. Hemostasis was assured. Surgicel was placed in the paratracheal spaces bilaterally. We then closed the strap muscles using running 3-0 Vicryl suture, the platysma with interrupted 3-0Vicryl suture, and the skin with running 5-0 Prolene subcuticular suture, followed by placement of Dermabond and removal of the Prolene suture. The patient tolerated the procedure well. Sponge and needle counts were correct upon completion of the procedure. Infection Bundle used? N/A Attestation: Case Date: 04/07/2019 I was present and I participated during the entire procedure (does not need to include opening and closing). AMARA SHULTZ MD 04/07/2019 * Brief Op Note - Amara Shultz MD - 04/07/2019 1:21 PM EDT Brief Operative Note Patient Name: Genie Alejandre : [id number] MR#: [id number] Case Date: 04/07/2019 Surgeon: Surgeon(s) and Role: * Amara Shultz MD - Primary * Kayla Mckeon MD - Resident Preoperative diagnosis: THYROID NODULE Postoperative diagnosis: THYROID NODULE Procedure(s) (LRB): THYROIDECTOMY, TOTAL OR COMPLETE (WRVU 15.04) (N/A) FACIAL NERVE MONITORING, SETUP LARYNGEAL (WRVU 1.57) (N/A) Anesthesia: General Findings: markedly enlarged left lobe, essentially replaced by a 6-7cm fleshy nodule. Relatively normal right lobe with a small palpable nodule. Bilateral recurrent laryngeal nerves intact. Both upper parathyroids preserved. Neither lower parathyroid seen. Complications: none apparent Intake: Intraprocedure Crystalloid Total 600cc Transfusion No data found. Output: Estimated Blood Loss: 23cc Urine Output:: (no urine output recorded) Other Output: (no other output recorded) Drains: none Specimens removed during surgery: Order Name Source Comment Collection Info Order Time SPECIMEN TO PATHOLOGY [id number] THYROID NODULE left lobe of thyroid resection 04/07/2019 12:22 PM Time specimen removed from patient: 12:22 PM Number of tissue samples (in container) 1 SPECIMEN TO PATHOLOGY [id number] THYROID NODULE right lobe of thyroid excision 04/07/2019 1:05 PM Time specimen removed from patient: 1:04 PM Number of tissue samples (in container) 1 Disposition: awakened from anesthesia, extubated and taken to the recovery room in a stable condition, having suffered no apparent untoward event. Condition: doing well without problems Attestation: Case Date: 04/07/2019 I was present and I participated during the entire procedure (does not need to include opening and closing). (Please see the Surgical Encounter Summary for any Implant and Specimen details pertinent to this patient.) documented in this encounter Plan of Treatment Not on file documented as of this encounter Procedures Procedure Name Priority Date/Time Associated Diagnosis Comments SPECIMEN TO PATHOLOGY Routine 04/07/2019 1:05 PM EDT SURGICAL PATHOLOGY REPORT Routine 04/07/2019 12:22 PM EDT SPECIMEN TO PATHOLOGY Routine 04/07/2019 12:22 PM EDT FACIAL NERVE MONITORING, SETUP LARYNGEAL (WRVU 1.57) 04/07/2019 10:53 AM EDT THYROID NODULE THYROIDECTOMY, TOTAL OR COMPLETE (WRVU 15.04) 04/07/2019 10:53 AM EDT THYROID NODULE POCT URINE Routine 04/07/2019 documented in this encounter Results * Specimen to Pathology (04/07/2019 1:05 PM EDT) AP Specimen 04/07/2019 1:05 PM EDT 04/07/2019 1:05 PM EDT Narrative [facility] - 04/07/2019 1:05 PM EDT Specimen requisition ordered. ??Separate Pathology report to follow Amara Shultz MD PATHOLOGY/CYTOLOG Y ORDERABLES [facility] [place] [address] * Surgical Pathology Report (04/07/2019 12:22 PM EDT) Pathologist [facility] Final Diagnosis [id number] ? Location: SDP; SD35; A The signing pathologist has (i) examined the relevant preparation(s) for the specimen(s) and (ii) rendered or confirmed the diagnosis(es). . ?Surgical Pathology DIAGNOSIS A - Left lobe of thyroid, hemithyroidectomy - - Nodular adenomatous hyperplasia, two nodules; the largest (6-cm) shows central cystic degenerative change and necrosis. 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 - One benign node (0/1). Specimen ? Procedure: ??Total thyroidectomy Tumor ? Histologic Type: ?? Papillary carcinoma, classic (usual, conventional) ? Tumor Size: ?? 0.17 Centimeters (cm) ? Tumor Site: ?? Right lobe ? Tumor Focality: ?? Unifocal ? Tumor Extent ?Extrathyroidal Extension: ?? Not identified ? Accessory Findings ?Angioinvasion (vascular invasion): ?Not identified ?Lymphatic Invasion: ?? Not identified Margins ? Margins: ??Uninvolved by carcinoma Lymph Nodes ? Number of Lymph Nodes Involved: ?? 0 ? Number of Lymph Nodes Examined: ?1 ? Twila Levels: ?? Level - pretracheal, paratracheal and prelaryngeal / ?Delphian, perithyroidal (central compartment dissection) Pathologic Stage Classification (pTNM, AJCC 8th Edition) ? Primary Tumor (pT): ?? pT1a ? Regional Lymph Nodes (pN): ?? pN0 Additional Findings ? Additional Pathologic Findings: ?? Adenomatoid nodule(s) or nodular follicular ?disease Tumor Block(s): ?? B4 Normal Block(s): ?? B1 CAP eCC May 2018 Release Electronically signed by: ??Danielle Maguire DO Verified: ??04/10/2019 ?Pathologist Performed at: ??-[facility] Dept. of Pathology, [place], [place] ADDITIONAL STUDIES Immunohistochemistry Studies: Formalin-fixed, paraffin-embedded tissue sections are studied using the polymer technique with appropriate positive and negative controls. ?These IHC studies provide the pathologist with adjunctive diagnostic information. Antibody specificity has been verified by testing antibodies on a series of in-house tissues with known immunohistochemical performance characteristics. The clinical interpretation of any antibody positive staining or its absence is evaluated within the context of clinical presentation, morphology, histopathological criteria and other diagnostic tests. . ADDITIONAL STUDIES Block ? Antibody ?Result (Positive/Negative) B4 ? galectin ? Positive in lesional cells. B4 ? HBME1 ?Positive in lesional cells. CLINICAL INFORMATION Specimen Submitted: A - Left lobe of thyroid B - Right lobe of thyroid Clinical History and Diagnosis: Thyroid nodule SPECIMEN PROCESSING A - Labeled/Fixative: Left lobe of thyroid, fresh. Quantity/Size/Weight : Single, 6.2 x 4.5 x 4.2 cm, 63 g. SPECIMEN DESCRIPTION: Resection Specimen: Intact, steve-thyroidectomy, consisting of left thyroid lobe. External Surface: Ragged, pink. ??LESION ?Location: Lower pole. ?Description: A well circumscribed, fleshy banuelos nodule. ?Size: 1.2 x 0.9 cm. ?Contour/capsule: Well delineated. ??LESION (2) ?Location: Remainder of specimen. ?Description: A dominant, centrally cystic and hemorrhagic mass. ?Size: 6.0 x 6.0 x 5.0 cm. ?Contour/capsule: Well delineated, well encapsulated. Parenchyma: Only scant amounts of normal thyroid parenchyma is identified. Inking: The thyroid capsule is inked black. Electronics Production Supervisor sections in 32 cassettes as follows: ?A1-A2: ??All of the smaller lesion ?A3: ??Electronics Production Supervisor of normal parenchyma and possible additional inferior nodule ?A4-A32: ??Electronics Production Supervisor sections, to include all of the capsule, of the dominant ? nodule B - Labeled/Fixative: Right lobe of thyroid, fresh. Quantity/Size/Weight : Single, 4.0 x 2.2 x 1.0 cm, 4 g. SPECIMEN DESCRIPTION: Resection Specimen: Intact, steve-thyroidectomy, consisting of right thyroid lobe. External Surface: Shaggy, red-brown. ??LESION ?Location: Upper pole. ?Description: Hemorrhagic nodule. ?Size: 1.0 x 1.0 x 0.9 cm. ?Contour/capsule: Circumscribed, well encapsulated. Parenchyma: Predominantly beefy red-banuelos with a 0.3 cm calcified nodule adjacent to the primary lesion. Inking: The thyroid capsule is inked black. Electronics Production Supervisor sections in 5 cassettes as follows: ?B1-B4: upper pole nodule ?B5: ??Additional inbound call center representative of normal thyroid parenchyma ??ejr 04/10/2019 10:23 AM EDT [facility] THYROID STRUCTURE / Unknown 04/07/2019 12:22 PM EDT 04/07/2019 12:22 PM EDT THYROID STRUCTURE / Unknown 04/07/2019 12:22 PM EDT 04/07/2019 12:22 PM EDT Amara Shultz MD PATHOLOGY/CYTOLOG Y ORDERABLES [facility] [place] [address] * Specimen to Pathology (04/07/2019 12:22 PM EDT) AP Specimen 04/07/2019 12:2 2 PM EDT 04/07/2019 12:22 PM EDT Narrative [facility] - 04/07/2019 12:22 PM EDT Specimen requisition ordered. ??Separate Pathology report to follow Amara Shultz MD PATHOLOGY/CYTOLOG Y ORDERABLES [facility] [place] [address] * POCT urine (04/07/2019) POC Urine HCG Negative Negative - Negative POC Control Internal Controls Acceptable 04/07/2019 Amara Shultz MD POINT OF CARE RICHIE T ORDERABLES documented in this encounter Visit Diagnoses Not on filedocumented in this encounter Administered Medications Inactive Administered Medications - up to 3 most recent administrations Medication Order MAR Action Action Date Dose Rate Site acetaminophen (TYLENOL) tablet 1,000 mg 1,000 mg, Oral, ONCE, 1 dose, On Sun04/07/19 at 1015, Administer with SIP of H2O only., Day of Surgery (Day of Procedure), Routine Given 04/07/2019 10:00 AM EDT 1,000 mg fentaNYL (PF) 50mcg/mL injection 12.5-25 mcg, Intravenous, EVERY 5 MIN PRN, Starting on Sun04/07/19 at 1353, Until Sun04/07/19 at 1647, Pain, Give 12.5 mcg every 5 minutes PRN for mild to moderate pain (1-5) Give 25 mcg every 5 minutes PRN for moderate to severe pain (6-10). Hold for respiratory rate less than 10 per minute. Maximum dose 250 mcg over one hour. If ordered with hydromorphone or morphine, give hydromorphone or morphine first and use fentanyl for breakthrough pain., PACU Recovery, Routine lactated ringers infusion 1,000 mL, at 100 mL/hr, Intravenous, CONTINUOUS, Starting on Sun04/07/19 at 1015, Until Sun04/07/19 at 1346, Day of Surgery (Day of Procedure) New Bag 04/07/2019 10:28 AM EDT New Bag 04/07/2019 10:15 AM EDT 1,000 mLs 100 mL/hr lactated ringers infusion 1,000 mL, at 100 mL/hr, Intravenous, CONTINUOUS, Starting on Sun04/07/19 at 1415, Until Sun04/07/19 at 1647, PACU Recovery lidocaine (XYLOCAINE) 10 mg/mL (1 %) injection 3 mg 3 mg (0.3 mL), Subcutaneous, ONCE PRN, 1 dose, Starting on Sun04/07/19 at 0957, Until Sun04/07/19 at 1647, for discomfort with PIV insertion, Day of Surgery (Day of Procedure), Routine naloxone (NARCAN) injection 0.04 mg 0.04 mg, Intravenous, EVERY 5 MIN PRN, Starting on Sun04/07/19 at 1353, Until Sun04/07/19 at 1647, Opioid Reversal, for respiratory rate less than 6 or unresponsive., May repeat every 5 minutes to increase respiratory rate. DO NOT exceed 0.12 mg total dose. Notify anesthesia immediately if administered., PACU Recovery, Routine ondansetron (ZOFRAN) injection 4 mg 4 mg, Intravenous, EVERY 30 MIN PRN, Starting on Sun04/07/19 at 1353, Until Sun04/07/19 at 1647, Nausea, May repeat 4 mg once in 30 minutes. If multiple antiemetics ordered, use ondansetron first and if ineffective use prochlorperazine second and if ineffective use promethazine, PACU Recovery promethazine (PHENERGAN) injection 12.5 mg 12.5 mg, Intravenous, EVERY 30 MIN PRN, Nausea, Starting on Sun04/07/19 at 1353, 2 doses, Until Sun04/07/19 at 1647, VESICANT - Dilute with a minimum of 10 mL saline. LARGE VEIN only. Inject over 10 minutes into the farthest port of a running IV infusion. Remain with the patient and STOP infusion immediately if patient reports burning. Avoid extravasation. If multiple antiemetics are ordered, use ondansetron first and if ineffective use prochlorperazine second and if ineffective use promethazine., PACU Recovery sodium chloride 0.9 % (flush) flush 5-20 mL 5-20 mL, Intravenous, EVERY 1 MIN PRN, Starting on Sun04/07/19 at 0957, Until Sun04/07/19 at 1647, flush, Flush pertains to all indwelling lines. Flush per protocol found in the job aid using the link provided on this medication record., Day of Surgery (Day of Procedure), Routine documented in this encounter Active and Recently Administered Medications Times are shown in EDT. Scheduled Medication Order 04/05/2019 04/06/2019 04/07/2019 acetaminophen (TYLENOL) tablet 1,000 mg (COMPLETED) 1,000 mg, Oral, ONCE, 1 dose, On Sun04/07/19 at 1015, Administer with SIP of H2O only., Day of Surgery (Day of Procedure), Routine 1000 (Given - Provid er: Odette Ferraro RN) ceFAZolin (ANCEF) 2g in dextrose 5% 100 mL (COMPLETED) 2 g, Intravenous, EVERY 3 HOURS, 1 dose, First dose on Sun04/07/19 at 1015, Administer over 30 Minutes, Intra-Operative (Intra-Procedure), Indication for (Active or Suspected): Prophylaxis 1109 (Given - Provid er: Hema Slater) gabapentin (NEURONTIN) capsule 600 mg 600 mg, Oral, ONCE, 1 dose, On Sun04/07/19 at 1015, Administer with SIP of H2O only., Day of Surgery (Day of Procedure), Routine 1015 (Not Given - Pr ovider: Odette Ferraro RN - Reason: See comment - Comment: Took 600 mg gabapentin at home this morning.) Continuous Medication Order 04/05/2019 04/06/2019 04/07/2019 lactated ringers infusion (CANCELED) 1,000 mL, at 100 mL/hr, Intravenous, CONTINUOUS, Starting on Sun04/07/19 at 1015, Until Sun04/07/19 at 1346, Day of Surgery (Day of Procedure) 1015 (New Bag - Prov ider: Odette Ferraro RN)1028 (New Bag - Provider: Lizette Yanez MD)1327 (Anesthesia Volume Adjustment - Provider: Lizette Yanez MD)1345 (Anesthesia Volume Adjustment - Provider: Hema Slater)1346 (Stopped - Provider: Hema Slater) lactated ringers infusion 1,000 mL, at 100 mL/hr, Intravenous, CONTINUOUS, Starting on Sun04/07/19 at 1415, Until Sun04/07/19 at 1647, PACU Recovery 1415 (Due) PRN Medication Order 04/05/2019 04/06/2019 04/07/2019 BUpivacaine-EPINEPHrine 0.25 %-1:200,000 injection (CANCELED) ONCE PRN, Starting on Sun04/07/19 at 1111, Until Sun04/07/19 at 1647, Intra-Operative (Intra-Procedure), Routine 1111 (Given - Provid er: Kayla Mckeon MD) fentaNYL (PF) 50mcg/mL injection 12.5-25 mcg, Intravenous, EVERY 5 MIN PRN, Starting on Sun04/07/19 at 1353, Until Sun04/07/19 at 1647, Pain, Give 12.5 mcg every 5 minutes PRN for mild to moderate pain (1-5) Give 25 mcg every 5 minutes PRN for moderate to severe pain (6-10). Hold for respiratory rate less than 10 per minute. Maximum dose 250 mcg over one hour. If ordered with hydromorphone or morphine, give hydromorphone or morphine first and use fentanyl for breakthrough pain., PACU Recovery, Routine lidocaine (XYLOCAINE) 10 mg/mL (1 %) injection 3 mg 3 mg (0.3 mL), Subcutaneous, ONCE PRN, 1 dose, Starting on Sun04/07/19 at 0957, Until Sun04/07/19 at 1647, for discomfort with PIV insertion, Day of Surgery (Day of Procedure), Routine naloxone (NARCAN) injection 0.04 mg 0.04 mg, Intravenous, EVERY 5 MIN PRN, Starting on Sun04/07/19 at 1353, Until Sun04/07/19 at 1647, Opioid Reversal, for respiratory rate less than 6 or unresponsive., May repeat every 5 minutes to increase respiratory rate. DO NOT exceed 0.12 mg total dose. Notify anesthesia immediately if administered., PACU Recovery, Routine ondansetron (ZOFRAN) injection 4 mg 4 mg, Intravenous, EVERY 30 MIN PRN, Starting on Sun04/07/19 at 1353, Until Sun04/07/19 at 1647, Nausea, May repeat 4 mg once in 30 minutes. If multiple antiemetics ordered, use ondansetron first and if ineffective use prochlorperazine second and if ineffective use promethazine, PACU Recovery promethazine (PHENERGAN) injection 12.5 mg 12.5 mg, Intravenous, EVERY 30 MIN PRN, Nausea, Starting on Sun04/07/19 at 1353, 2 doses, Until Sun04/07/19 at 1647, VESICANT - Dilute with a minimum of 10 mL saline. LARGE VEIN only. Inject over 10 minutes into the farthest port of a running IV infusion. Remain with the patient and STOP infusion immediately if patient reports burning. Avoid extravasation. If multiple antiemetics are ordered, use ondansetron first and if ineffective use prochlorperazine second and if ineffective use promethazine., PACU Recovery sodium chloride 0.9 % (flush) flush 5-20 mL 5-20 mL, Intravenous, EVERY 1 MIN PRN, Starting on Sun04/07/19 at 0957, Until Sun04/07/19 at 1647, flush, Flush pertains to all indwelling lines. Flush per protocol found in the job aid using the link provided on this medication record., Day of Surgery (Day of Procedure), Routine documented in this encounter Care Teams Switcher Relationship Specialty Start Date End Date Brittany Muhammad DO [address] [place] [address] PCP - General Family Medicine 01/23/19 documented as of this encounter
--- OUTSIDE RECORDS SUMMARY | 2024-05-07 02:55 | XMS_ITS | Encounter Summary ---
Author Organization Count Includes [facility] [address] Care Team Providers Care Knotter Name Role Phone Brittany Muhammad DO Primary Care Provider [phone]- [phone] Encounter Details Date Type Department Care Team (Late st Contact Info) Description 02/26/2020 Telephone Weight and Wellness at [address] [id number] Kathryn Bashir, CHIO Social History Tobacco Use [...] encounter Miscellaneous Notes * Telephone Encounter - aKthryn Bashir SINGLE CORNER CUTTER - 02/26/2020 10:47 AM EDT [facility] Soil Expert Pre-telemedicine Visit Phone Note Genie Alejandre 1975 Current medications/allergies: ??? levothyroxine (Synthroid) 137 mcg Tablet ??? citalopram (CeleXA) 20 mg Tablet ??? spironolactone (ALDACTONE) 50 mg Tablet ??? lamoTRIgine (LAMICTAL) 150 mg Tablet ??? norgestimate-ethinyl estradiol (TRI SPRINTEC) 0.18/0.215/0.25 mg-35 mcg (28) Tablet ??? SUMAtriptan (IMITREX) 50 mg Tablet ??? pantoprazole (PROTONIX) 20 mg Tablet, Delayed Release (E.C.) ??? losartan (COZAAR) 25 mg Tablet ??? gabapentin (NEURONTIN) 600 mg Tablet ??? clonazePAM (KLONOPIN) 1 mg tablet ??? multivitamin (THERAGRAN) tablet No Known Allergies [] Patient was not reached: [] No working phone [] Message left to call [phone] [x] Patient was reached and the following information was reviewed/obtained per protocol: [x] Confirmed patient name and date of [x] Confirmed telemedicine software downloaded and functioning [x] Confirmed location of patient. Patient is in [] [place] [x] [place] [x] Confirmed best number to be reached is: [phone] REVIEW: [x] Review of patient medications completed [x] NEW medications include: Claritin [x] Confirmed preferred pharmacy: [place], [place] [] Prescriptions ready to be signed: [x] Documented self reported vital signs from [] Home [] PCP [] outside PCP Date: pts scale not working. Did see PCP on weight was 260 [] Weight [] Height [] Blood pressure [] Pulse [x] Asked about any recent labs/studies [] No [x] Yes: at [facility] [phone] [] Labs/vitals requested [] Labs/vitals sent for scanning (payroll secretary) and entry (RN) [x] Requested 24 hour diet recall -------- [x] Reminded to sign up for [employer] [x] Reminded to complete [employer] survey if message received to do so [] Other information or concerns: FOR FOLLOW-UP VISITS: from mailed intake worksheet Interval History ??? Have you started on any NEW medications? [] No [x] Yes:Claritin ??? Any NEW medical conditions? [] No [] Yes:N/A ??? Any recent hospitalizations? [x] No [] Yes: ??? Family members with NEW diagnosis of cancer? [] No [] Yes:N/A ? ? How many hours are you sleeping? [x]<=5 []6 []7 []8 []9+ ??? Do you have sleep apnea? [] No [x] Yes: o If yes are you on CPAP/BIPAP [] No [x] Yes: CPAP- not using o If yes, how many hours are you wearing the mask? []<=5 []6 []7 []8 []9+ ??? Stress Scale: []1 []2 []3 []4 [x]5 []6 []7 []8 []9 []10 Reviewed 24 hour diet recall, pt agreed to have ready for appointment time. Kathryn Bashir CMA documented in this encounter Plan of Treatment Not on file documented as of this encounter Visit Diagnoses Not on filedocumented in this encounter Care Teams Knotter Relationship Specialty Start Date End Date Brittany Muhammad DO [address] [place] [address] PCP - General Family Medicine 01/23/19 documented as of this encounter
--- OUTSIDE RECORDS SUMMARY | 2024-05-07 02:55 | XMS_ITS | Encounter Summary ---
Author Organization [facility] Address [facility] [place] [address] Care Team Providers Care Registered Medical Assistant Name Role Phone Brittany Muhammad DO Primary Care Provider [phone]- [phone] Encounter Details Date Type Department Care Team (Late st Contact Info) Description 01/29/2019 [place] [phone] Kenia Khanna MD [facility] [place] [address] Social History Tobacco Use Types Packs/Day Years [...] encounter Miscellaneous Notes * Telephone Encounter - Kenia Khanna - 01/29/2019 8:36 AM EDT Endocrinology Telephone Note: FNA of L cyst returned with AUS. Await thyroseq. L sided cyst has returned according to Genie, pt does feel that the cyst is affecting her breathingto a minor degree, fullness in the L side of the neck. Breathing comfortably on the phone, speakingin full sentences. Did receive CT report from 01/22/2019 which notes a nodular fullness of the left thyroid lobe measuring at least 4.7x 5.6 cm. This results in rightward tracheal deviation in the superior mediastinum. Otherwise no definite mediastinal mass or adenopathy. No pericardial effusion. She is currently scheduled with [facility] for 02/27, will send note. Encouraged pt to go to ED immediately if she develops severe dyspnea or discomfort secondary to thecyst. Kenia Khanna MD PGY-4 [facility] [place] Endocrinology Fellow Pager #[phone] documented in this encounter Plan of Treatment Not on file documented as of this encounter Visit Diagnoses Not on filedocumented in this encounter Care Teams Registered Medical Assistant Relationship Specialty Start Date End Date Brittany Muhammad DO [address] [facility] [place] [address] PCP - General Family Medicine 01/23/19 documented as of this encounter
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
--- OUTSIDE RECORDS SUMMARY | 2024-05-07 02:55 | XMS_ITS | Encounter Summary ---
Author Organization [facility] Address [facility] [place] [address] Care Team Providers Care Ship Painter Helper Name Role Phone Brittany Muhammad Primary Care Provider [phone]- [phone] Encounter Details Date Type Department Care Team (Late st Contact Info) Description 02/11/2019 [place] [address] Kenia Khanna MD [facility] [place] [address] Social History Tobacco Use Types Packs/Day Years [...] * Telephone Encounter - Kenia Khanna - 02/11/2019 3:08 PM EDT Endocrinology Telephone Note: Called Genie to discuss results of Thyrseq- was inconclusive. This is to be expected given cystic nature of the lesion. Kenia Khanna MD PGY-4 [facility] [place] Fellow Pager #[phone] documented in this encounter Plan of Treatment Not on file documented as of this encounter Visit Diagnoses Not on filedocumented in this encounter Care Teams Ship Painter Helper Relationship Specialty Start Date End Date Brittany Muhammad DO [address] [place] [address] PCP - General Family Medicine 01/23/19 documented as of this encounter
--- OUTSIDE RECORDS SUMMARY | 2024-05-07 02:55 | XMS_ITS | Encounter Summary ---
Author Organization [facility] Address [facility] [place] [address] Care Team Providers Care Affirmative Action Officer Name Role Phone Kylah Santizo SECOND RIDE FARE COLLECTOR Primary Care Provider +1- [phone] Reason for Visit * Reason Comments Skin Check vygu-azfl-zpiy-scalp Encounter Details Date Type Department Care Team (Late st Contact Info) Description 01/29/2014 10:45 AM EDT Office Visit Dermatology at [place] [address] [place] [address] Yolanda Kwon MD [facility] [place] [address] Eczema (Primary Dx) Discharge Disposition: Home Social History Tobacco Use [...] as of this encounter Progress Notes * Yolanda Kwon MD - 01/29/2014 10:52 AM EDT Images from the original note were not included. DERMATOLOGY CONSULT NOTE Date of service: 01/29/2014 Genie Alejandre : 1975 Provider: Nohemy Kwon MD Chief Complaint Patient presents with ??? Skin Check aljt-vdzz-wbll-scalp The patient is seen at the request of KYLAH SANTIZO APRN, who instructed the patient to be seenfor evaluation of above SKIN HX: rash HPI Genie Alejandre is a 38 y.o. year old female. Presents to clinic today for an itchy rash located on the scalp, bilateral lower arms, neck and face. She states that the skin is usually very red and flaky. She has had symptoms for 1.5 years with marginal results using ketoconazole shampoo, mupirocin, fluocinonide, clobetasol and triamcinolone. She has discontinued using all the prescriptions medications and is now just moiturizing with Aquaphor lotion to the effected . Does have excess facial hair on the neck and chin and shaves daily. Today neck and lower face are involved, most of other areas controlled. No personal history of childhood eczema or atopy. No other skin concerns. ADR: Review of patient's allergies indicates no known allergies. MEDS: Current Outpatient Prescriptions Medication Sig Dispense Refill ??? lisinopril (PRINIVIL;ZESTRIL) 10 mg tablet Take 30 mg by mouth daily. ??? levothyroxine (SYNTHROID) 75 mcg tablet Take 75 mcg by mouth daily. ??? multivitamin (THERAGRAN) tablet Take 1 tablet by mouth daily. ROS General: feeling well Skin: denies other skin complaints EXAM General: NAD, pleasant, cooperative Skin: Examination of skin from the waist up was performed. This includes examination of the skin ofthe face, ears, neck, chest, axillae, left and right upper extremities, hands, back, and abdomen. Significant skin findings: A. Scattered erythematous eczematous papules and plaques located on the scalp, face, chest and bilateral lower arms. No increased temperature, purulence or other evidence of infection. Photo taken and charted with patient consent ASSESSMENT/PLAN: A. Eczematous dermatitis, possible allergic contact dermatitis Recommended desonide cream twice daily to the affected areas for 2 weeks. Stop cream 1 week prior to follow up visit. -Discussed sensitive skin diet, Handouts given, she will discontinue use of all other topicals except those listed Rx-desonide twice daily to the affected area for 2 weeks. [facility] ?? Follow up appointment in 3 weeks to re-check A. Instructed to call should problems worsens or with any question or concerns. I am documenting this encounter acting as the scribe for and in the presence of Dr. Kwon.: Gale Ruffin LPN I performed the above scribed service and agree with the accuracy of the documentation in this encounter. Nohemy Kwon MD Section of Dermatology [facility] cc: KYLAH SANTIZO APRN documented in this encounter Plan of Treatment Not on file documented as of this encounter Visit Diagnoses Diagnosis Eczema- Primary Contact dermatitis and other eczema, due to unspecified cause documented in this encounter Care Teams Affirmative Action Officer Relationship Specialty Start Date End Date Kylah Santizo APRN [phone] [place] [address] PCP - General 05/08/13 11/26/16 documented as of this encounter
--- OUTSIDE RECORDS SUMMARY | 2024-05-07 02:55 | XMS_ITS | Encounter Summary ---
Author Organization [facility] Address [facility] [place] [address] Care Team Providers Care Manufacturing Engineer Supervisor Name Role Phone Stefanie Joy APRN Primary Care Provider +1- [phone] Encounter Details Date Type Department Care Team (Latest Contact Info) Description 10/08/2013 2:58 PM EST - 10/08/2013 11:59 PM [facility] Hospital Encounter XRay at [address] [place] [address] HNP (herniated nucleus pulposus), lumbar Social History Tobacco Use Types Packs/Day Years [...] Sig Dispensed Refills Start Date End Date Cephalexin 500 mg Tab Take 1 tablet by mouth 4 times daily for 14 days. 56 tablet 0 10/08/2013 10/22/2013 mupirocin (BACTROBAN) 2 % cream Apply topically 2 times daily. 10/31/2013 lisinopril (PRINIVIL;ZESTRIL) 10 mg tablet Take 30 mg by mouth daily. 01/29/2014 levothyroxine (SYNTHROID) 75 mcg tabletIndications:Susan l insufficiency,History of nephrolithiasis,Leg cramps Take 75 mcg by mouth daily. 01/29/2014 naproxen (NAPROSYN) 250 mg tabletIndications:Susan l insufficiency,History of nephrolithiasis,Leg cramps Take 500 mg by mouth 2 times daily (with meals). 10/31/2013 multivitamin (THERAGRAN) tablet Take 1 tablet by mouth daily. 03/11/2020 documented as of this encounter Plan of Treatment Not on file documented as of this encounter Procedures Procedure Name Priority Date/Time Associated Diagnosis Comments XR LUMBAR SPINE 2 OR 3 VIEWS Routine 10/08/2013 3:05 PM EST HNP (herniated nucleus pulposus), lumbar documented in this encounter Results * XR lumbar spine 2 or 3 views (10/08/2013 3:05 PM EST) Anatomical Region Laterality Modality L-spine N/A Radiographic Ana ging 10/08/2013 3:05 PM EST Narrative 10/08/2013 5:22 PM EST Examination LSPINE 2 OR 3 VIEWS Clinical History s/p surgery Comparison 09/17/2013. Technique 2 views. Findings The patient is status post discectomy at L4-L5. ??There are 5 igy-mkb-qjtsxie lumbar type vertebral bodies. ??Again seen is a mild leftward curvature of the lumbar spine. ??Facet arthropathy is again noted in the lower lumbar spine. ??No interval change in alignment. Impression Status post discectomy at L4-L5 with no change in alignment. Film and interpretation reviewed by the attending Procedure Note Nely Lainez MD - 10/08/2013 Examination LSPINE 2 OR 3 VIEWS Clinical History s/p surgery Comparison 09/17/2013. Technique 2 views. Findings The patient is status post discectomy at L4-L5. There are 9yrb-pox-khhetfo lumbar type vertebral bodies. Again seen is a mild leftward curvature ofthe lumbar spine. Facet arthropathy is again noted in the lower lumbar spine.No interval change in alignment. Impression Status post discectomy at L4-L5 with no change in alignment. Film and interpretation reviewed by the attending Brock Trujillo MD IMG DX ORDERABLES documented in this encounter Visit Diagnoses Diagnosis HNP (herniated nucleus pulposus), lumbar Displacement of lumbar intervertebral disc without myelopathy documented in this encounter Care Teams Manufacturing Engineer Supervisor Relationship Specialty Start Date End Date Stefanie Joy APRN [phone] [place] [address] PCP - General 05/08/13 11/26/16 documented as of this encounter
--- OUTSIDE RECORDS SUMMARY | 2024-05-07 02:55 | XMS_ITS | Encounter Summary ---
Author Organization [facility] Address [facility] [place] [address] Care Team Providers Care Computerized Mill Recorder Name Role Phone Stefanie Jyo APRN Primary Care Provider +1- [phone] Encounter Details Date Type Department Care Team (Late st Contact Info) Description 01/20/2014 Telephone Nephrology Hypertension at [facility] [place] [address] Alex Marr MD [facility] [place] [address] Social History Tobacco Use Types Packs/Day Years [...] encounter Miscellaneous Notes * Telephone Encounter - Charleen Hess - 01/20/2014 1:59 PM EDT UNABLE TO SCHEDULE. 3 CALLS, SENT NOTE OFF REMINDER LIST PER ANGELES documented in this encounter Plan of Treatment Not on file documented as of this encounter Visit Diagnoses Not on filedocumented in this encounter Care Teams Computerized Mill Recorder Relationship Specialty Start Date End Date Stefanie Joy APRN [phone] [place] [address] PCP - General 05/08/13 11/26/16 documented as of this encounter
--- OUTSIDE RECORDS SUMMARY | 2024-05-07 02:55 | XMS_ITS | Encounter Summary ---
Author Organization [facility] Address [facility] [place] [address] Care Team Providers Care Vending Machine Attendant Name Role Phone Brittany Muhammad DO Primary Care Provider +1- [phone] Encounter Details Date Type Department Care Team (Late st Contact Info) Description 03/08/2020 Telephone [place] [address] Dee Ontiveros, [facility] [...] Notes * Telephone Encounter - Dee Ontiveros, [facility] - 03/08/2020 10:46 AM EDT GAP Stonework Tracer Pre-Telemedicine Phone Note [] Patient not reached [x] Patient reached and the following information was reviewed/obtained per protocol: [x] Confirmed patient name and date of [x] Confirmed telemedicine tyesha (Vidyo and Virtual Visit) is downloaded and functioning [x] Confirmed location of patient - TeleVisit is taking place in [x] [place] [] [place] [] If not on myDH, working on signing up for [facility] [] Confirmed has completed any pre-visit questionnaires [] If has not received required pre-visit questionnaires, send via [facility] [x] Reviewed patient medications ??? metFORMIN XR (Glucophage XR) 500 mg Tablet Sustained Release 24 hr ??? loratadine (Claritin) 10 mg Tablet ??? levothyroxine (Synthroid) 137 mcg Tablet ??? citalopram (CeleXA) 20 mg Tablet ??? spironolactone (ALDACTONE) 50 mg Tablet ??? lamoTRIgine (LAMICTAL) 150 mg Tablet ??? norgestimate-ethinyl estradiol (TRI SPRINTEC) 0.18/0.215/0.25 mg-35 mcg (28) Tablet ??? SUMAtriptan (IMITREX) 50 mg Tablet ??? pantoprazole (PROTONIX) 20 mg Tablet, Delayed Release (E.C.) ??? losartan (COZAAR) 25 mg Tablet ??? clonazePAM (KLONOPIN) 1 mg tablet ??? multivitamin (THERAGRAN) tablet ??? gabapentin (NEURONTIN) 600 mg Tablet [x] Documented self-reported vitals: [x] Weight: 260lbs [x] Height 52 [] pulse recorded: [] Other information or concerns documented in [...] with sleep lab at [facility] regarding treatment of sleep apnea documented as of this encounter Visit Diagnoses Not on filedocumented in this encounter Care Teams Vending Machine Attendant Relationship Specialty Start Date End Date Brittany Muhammad DO [address] [place] [address] PCP - General Family Medicine 01/23/19 documented as of this encounter
--- OUTSIDE RECORDS SUMMARY | 2024-05-07 02:55 | XMS_ITS | Encounter Summary ---
[place] [address] Care Team Providers Care Oscillograph Technician Name Role Phone Stefanie Joy Rachel CARDOZO Primary Care Provider +1- [phone] Reason for Visit * Reason Onset Date Comments Drainage from Incision 10/06/2013 Encounter Details Date Type Department Care Team (Late st Contact Info) Description 10/06/2013 Telephone [place] [address] Britt Lipscomb, RN Drainage from Incision Social History Tobacco Use Types Packs/Day Years [...] encounter Miscellaneous Notes * Telephone Encounter - Britt Lipscomb, RN - 10/06/2013 3:26 PM EST Images from the original note were not included. Received call from Genie who is s/p left L4-5 discectomy 09/17/13with Dr ballesteros. Pt reports that her incision had been dry and intact; that last night she had the onset of a small amt of thick milkywhite drainage (states in a 4 hrs period there was < than or approx a dime sized area on the guaze. Report that that drainage stopped and then this morning she noted small amt of sero sang drainage. Does not have a thermometer; states feels well otherwise' pt does not think she is running a fever. Pt denies any swelling or redness. Reports some increased discomfort, slight throbbing at incisional area last night. Agreed to send in photo for review/record. Reviewed above with Dr Ballesteros. Surgical FU appt moved up from next week to Sunday10/08/13 to facilitate timely review of incisional area. documented in this encounter Plan of Treatment Not on file documented as of this encounter Visit Diagnoses Not on filedocumented in this encounter Care Teams Oscillograph Technician Relationship Specialty Start Date End Date Stefanie Joy APRN [phone] [place] [address] PCP - General 05/08/13 11/26/16 documented as of this encounter
--- OUTSIDE RECORDS SUMMARY | 2024-05-07 02:55 | XMS_ITS | Encounter Summary ---
[place] [address] Care Team Providers Care Energy Sales Consultant Name Role Phone Brittany Muhammad DO Primary Care Provider +1- [phone] Encounter Details Date Type Department Care Team (Latest Contact Info) Description 07/11/2019 2:00 PM EDT Laboratory Appointment Lab [address] [place] [address] Papillary microcarcinoma of thyroid Social History Tobacco Use Types Packs/Day Years [...] Name Priority Date/Time Associated Diagnosis Comments HC THYROGLOBULIN Routine 07/11/2019 1:51 PM EDT Papillary microcarcinoma of thyroid HC THYROID STIMULATING HORMONE, SERUM Routine 07/11/2019 1:51 PM EDT Papillary microcarcinoma of thyroid HC FREE THYROXINE (T4) Routine 07/11/2019 1:51 PM EDT Papillary microcarcinoma of thyroid documented in this encounter Results * Thyroglobulin (07/11/2019 1:51 PM EDT) Thyroglobulin 0.6 <=54.9 ng/mL [facility] Thyroglob Ab <20.0 0.0 - 40.0 IU/mL [facility] Blood specimen (specimen) 07/11/2019 1:51 PM EDT 07/13/2019 7:30 AM EDT Narrative Resulting Agency Comment Spec In Lab Marco A Benoit MD LAB SEND OUT ORDERAB LES Performing Organization Address City/[facility] Co de Phone Number [facility] [place] [address] * TSH (07/11/2019 1:51 PM EDT) Thyroid Stimulating Hormone 1.95 0.27 - 4.20 mcIU/mL [facility] Blood specimen (specimen) 07/11/2019 1:51 PM EDT 07/11/2019 1:54 PM EDT Narrative Resulting Agency Comment Spec In Lab Marco A Benoit MD CHEMISTRY ORDERABLES Performing Organization Address City/[facility] Co de Phone Number [facility] [place] [address] * T4, free (07/11/2019 1:51 PM EDT) Free T4 1.62 0.93 - 1.70 ng/dL [facility] Blood specimen (specimen) 07/11/2019 1:51 PM EDT 07/11/2019 1:54 PM EDT Narrative Resulting Agency Comment Spec In Lab Marco A Benoit MD CHEMISTRY ORDERABLES Performing Organization Address City/[facility]/ZIP Co de Phone Number [facility] [place] [address] documented in this encounter Visit Diagnoses Diagnosis Papillary microcarcinoma of thyroid documented in this encounter Care Teams Energy Sales Consultant Relationship Specialty Start Date End Date Brittany Muhammad DO [address] [place] [place] [address] PCP - General Family Medicine 01/23/19 documented as of this encounter
--- OUTSIDE RECORDS SUMMARY | 2024-05-07 02:55 | XMS_ITS | Encounter Summary ---
[place] [address] Care Team Providers Care Metal Tile Setter Name Role Phone Stefanie Joy APRN Primary Care Provider +1- [phone] Reason for Visit * Reason Onset Date Comments Questions 09/17/2013 asking if inpt d erm consult could be performed following surgery today Encounter Details Date Type Department Care Team (Late st Contact Info) Description 09/17/2013 Telephone [place] [address] Britt Lipscomb, RN Questions (asking if inpt derm consult could be performed following surgery today) Social History Tobacco Use Types Packs/Day Years [...] Telephone Encounter - Britt Lipscomb, RN - 09/17/2013 8:48 AM EST Advised caller that pt was not scheduled to be admitted overnight, that it was anticipated that shewould be in/out for surgery today via SameDay. Explained that I would inquire about a possibility of an inpt consult order being placed and then performed through [facility] but I was not confident it couldbe accomplished given the brief stay and immediate PO recovery needs. Inquiry made to OR asking if Inpt consult could be ordered/performed via same day. Received return call advising that this could not be performed. Call returned to Racheal, referral secretary office clerk for PCP, at the PCP's request; advising that the derm consult would not be able to be performed today during brief stay in [facility]. documented in this encounter Plan of Treatment Not on file documented as of this encounter Visit Diagnoses Not on filedocumented in this encounter Care Teams Metal Tile Setter Relationship Specialty Start Date End Date Stefanie Joy APRN [phone] [place] [address] PCP - General 05/08/13 11/26/16 documented as of this encounter
--- OUTSIDE RECORDS SUMMARY | 2024-05-07 02:55 | XMS_ITS | Encounter Summary ---
Author Organization [facility] Address [facility] [place] [address] Care Team Providers Care Boilermaker Ship Name Role Phone MurielBrittany nieves Primary Care Provider +1- [phone] Reason for Visit * Reason Comments Medication Refill Encounter Details Date Type Department Care Team (Late st Contact Info) Description 03/02/2020 Refill Weight and Wellness at [facility] [address] [place] [address] Crystal Holley, CELL FEED DEPARTMENT SUPERVISOR [facility] [address] [facility] [address] Insulin resistance; Class 3 severe obesity with [...] 1/4 avocado, 1-2 tbsp dressing 1-2 cups [id number] veggies Write down in a notebook with [...] type documented in this encounter Care Teams Boilermaker Ship Relationship Specialty Start Date End Date Brittany Muhammad DO [address] [place] [address] PCP - General Family Medicine 01/23/19 documented as of this encounter
--- OUTSIDE RECORDS SUMMARY | 2024-05-07 02:55 | XMS_ITS | Encounter Summary ---
Author Organization [facility] Address [facility] [place] [address] Care Team Providers Care Head Bone Grinder Name Role Phone Brittany Muhammad Primary Care Provider +1- [phone] Reason for Visit * Reason Comments Medication Refill Encounter Details Date Type Department Care Team (Late st Contact Info) Description 02/12/2020 Refill [place] [address] Olive Liu MD [facility] [place] [address] Social History Tobacco Use Types Packs/Day Years [...] night Follow up with sleep lab at [facility] regarding treatment of sleep apnea [...] 1/4 avocado, 1-2 tbsp dressing 1-2 cups [id number] veggies Write down in a notebook with [...] on filedocumented in this encounter Care Teams Head Bone Grinder Relationship Specialty Start Date End Date Brittany Muhammad DO [address] [place] [address] PCP - General Family Medicine 01/23/19 documented as of this encounter
--- OUTSIDE RECORDS SUMMARY | 2024-05-07 02:55 | XMS_ITS | Encounter Summary ---
Author Organization [facility] [place] [address] Care Team Providers Care Cloud Systems Architect Name Role Phone SabinaBrittany Primary Care Provider +1- [phone] Encounter Details Date Type Department Care Team (Late st Contact Info) Description 03/02/2020 Orders Only Weight and Wellness at [facility] [address] [place] [address] Crystal Holley, HIDE STRETCHER [facility] [address] [facility] [address] Insulin resistance; Class 3 severe obesity with [...] night Follow up with sleep lab at [facility] regarding treatment of sleep apnea documented as of this encounter Visit Diagnoses Diagnosis Insulin resistance Dysmetabolic Syndrome X Class 3 severe obesity with serious comorbidity and body mass index (BMI) of 45.0 to 49.9 in adult, unspecified obesity type documented in this encounter Care Teams Cloud Systems Architect Relationship Specialty Start Date End Date Brittany Muhammad DO [address] [place] [address] PCP - General Family Medicine 01/23/19 documented as of this encounter
--- OUTSIDE RECORDS SUMMARY | 2024-05-07 02:55 | XMS_ITS | Encounter Summary ---
Author Organization [facility] Address [facility] [place] [address] Care Team Providers Care Head Of Store Operations Name Role Phone Brittany Muhammad Primary Care Provider +1- [phone] Reason for Visit * Reason Comments Follow-up Encounter Details Date Type Department Care Team (Late st Contact Info) Description 05/22/2019 1:30 PM EDT Office [place] [address] Olive Liu MD [facility] [place] [address] S/P total thyroidectomy Social History Tobacco Use Types Packs/Day Years [...] - Inhaled Oxygen Concentration - - Weight 119.3 kg (263 lb) 05/22/2019 1:17 PM EDT Height - - Body Mass Index 48.1 04/07/2019 9:48 AM EDT documented in this encounter Progress Notes * Olive Liu MD - 05/22/2019 1:30 PM EDT Thyroidectomy Post-Op Visit Subjective: Ms. Genie Alejandre is a very pleasant 44 y.o. year old female 6 weeks s/p total thyroidectomy fora symptomatic thyroid cyst. She is doing okay. She is not having hypocalcemic symptoms or issues with pain or difficulty swallowing. She is having issues with her voice--feeling like it takes a lot of effort to get sound out and not being able to raise her voice. She also feels exhausted all the time and is having heat intolerance and unusual hair loss. Exam: There were no vitals filed for this visit. Healing anterior neck incision with underlying healing ridge. No hematoma or seroma. Voice appears normal. Pathology results: A - Left lobe of thyroid, hemithyroidectomy - - Nodular adenomatous hyperplasia, two nodules; the largest (6-cm) shows central ??cystic degenerative change and necrosis. B - Right [...] Adenomatoid nodule(s) or nodular follicular ? disease Labs: Lab Results Component Value Date TSH 0.08 (L) 05/22/2019 Assessment and Plan: Ms. Genie Alejandre is a very pleasant 44 y.o. year old female s/p total thyroidectomy for a symptomatic thyroid cyst who is doing well overall post- operatively without evidence of significant complications. I discussed the pathology results with the patient and recommended no further treatment other than thyroid hormone replacement and follow up with Dr. Khanna for the microcarcinoma. She is currently on 175 mcg of levothyroxine daily and TSH is low (with symptoms consistent with hyperthyroidism), so she will require a dose adjustment. I called in 137mcg/day of synthroid and recommended follow-up with Dr. Khanna in approximately 6 weeks. That would also be a good time to check her post-operative thyroglobulin, which was not drawn today. She has successfully tapered off the post-operative supplemental calcium and vitamin D. I discussed scar massage with vitamin E to aid in incisional appearance and discussed the importance of UV light protection on scar healing. Overall, she is doing well post-operatively and I recommended follow up with me on an as needed basis hereafter. documented in this encounter Plan of Treatment Not on file documented as of this encounter Visit Diagnoses Diagnosis S/P total thyroidectomy Other postprocedural status documented in this encounter Care Teams Head Of Store Operations Relationship Specialty Start Date End Date Brittany Muhammad DO [address] [place] [address] PCP - General Family Medicine 01/23/19 documented as of this encounter
--- OUTSIDE RECORDS SUMMARY | 2024-05-07 02:55 | XMS_ITS | Encounter Summary ---
Author Organization [facility] Address [facility] [place] [address] Care Team Providers Care Dip Painter Name Role Phone MurielBrittany nieves Jose BARRETO Primary Care Provider +1- [phone] Encounter Details Date Type Department Care Team (Late st Contact Info) Description 04/07/2019 10:28 AM EDT - 04/07/2019 12:56 PM EDT Surgery [place] [address] Amara Shultz MD [facility] [place] [address] THYROIDECTOMY, TOTAL OR COMPLETE (WRVU 15.04) Social History Tobacco Use Types Packs/Day Years [...] Sign Reading Time Taken Comments Blood Pressure 132/80 04/07/2019 9:48 AM EDT Pulse 75 04/07/2019 9:48 AM EDT Temperature 36.4 ??C (97.5 ??F) 04/07/2019 9:48 AM ED T Respiratory Rate 16 04/07/2019 9:48 AM EDT Oxygen Saturation 99% 04/07/2019 9:48 AM EDT Inhaled Oxygen Concentration - - [...] Take NSAIDS and/or Tylenol every 6 hours khlepv-vya-wyych for the first 3-5 days following surgery [...] will be mailed to you Please call [phone] to confirm the date and time of [...] is just fine. Phone number for questions: [phone] before 5 PM on weekdays [phone] after 5 PM and on weekends/holidays. Ask for the general surgery resident operations accountant. documented in this encounter Medications at Time [...] Shultz MD - 04/07/2019 1:22 PM EDT [facility] Operative Note Patient Name: Genie Alejandre : [id number] MR#: [id number] Case Date: 04/07/2019 Surgeon: Surgeon(s) and Role: [...] Collection Info Order Time SPECIMEN TO PATHOLOGY [id number] THYROID NODULE left lobe of thyroid resection 04/07/2019 12:22 PM Time specimen removed from patient: 12:22 PM Number of tissue samples (in container) 1 SPECIMEN TO PATHOLOGY 63508 THYROID NODULE right lobe of thyroid excision [...] and FNA demonstrating atypia of undetermined significance (Skandia 3) cytology in a paucicellular specimen of [...] anesthesia was achieved by anesthesiology with the [employer] recurrent laryngeal nerve monitoring system. A natural [...] Operative Note Patient Name: Genie Alejandre : [id number] MR#: [id number] Case Date: 04/07/2019 Surgeon: Surgeon(s) and Role: [...] Collection Info Order Time SPECIMEN TO PATHOLOGY 37031 THYROID NODULE left lobe of thyroid resection 04/07/2019 12:22 PM Time specimen removed from patient: 12:22 PM Number of tissue samples (in container) 1 SPECIMEN TO PATHOLOGY 32972 THYROID NODULE right lobe of thyroid excision [...] PM EDT 04/07/2019 1:05 PM EDT Narrative [facility] - 04/07/2019 1:05 PM EDT Specimen requisition ordered. ??Separate Pathology report to follow Amara Shultz MD PATHOLOGY/CYTOLOG Y [place] [address] * Surgical Pathology Report (04/07/2019 12:22 PM EDT) Final Diagnosis [id number] ? Location: SDP; SD35; A The signing [...] Maguire DO Verified: ??04/10/2019 ?Pathologist Performed at: ??-[facility] Dept. of Pathology, [place], [place] ADDITIONAL STUDIES Immunohistochemistry Studies: Formalin-fixed, paraffin-embedded [...] Inking: The thyroid capsule is inked black. Bag Grader sections in 32 cassettes as follows: ?A1-A2: ??All of the smaller lesion ?A3: ??Bag Grader of normal parenchyma and possible additional inferior nodule ?A4-A32: ??Bag Grader sections, to include all of the capsule, [...] Inking: The thyroid capsule is inked black. Bag Grader sections in 5 cassettes as follows: ?B1-B4: upper pole nodule ?B5: ??Additional security representative of normal thyroid parenchyma ??ejr 04/10/2019 10:23 AM EDT [facility] THYROID STRUCTURE / Unknown 04/07/2019 12:22 PM EDT 04/07/2019 12:22 PM EDT THYROID STRUCTURE / Unknown 04/07/2019 12:22 PM EDT 04/07/2019 12:22 PM EDT Amara Shultz MD PATHOLOGY/CYTOLOG Y ORDERABLES [facility] [place] [place] [address] * Specimen to Pathology (04/07/2019 12:22 PM EDT) AP Specimen 04/07/2019 12:2 2 PM EDT 04/07/2019 12:22 PM EDT Narrative [facility] - 04/07/2019 12:22 PM EDT Specimen requisition ordered. ??Separate Pathology report to follow Amara Shultz MD PATHOLOGY/CYTOLOG Y ORDERABLES [facility] [place] [address] * POCT urine (04/07/2019) POC Urine HCG [...] Given 04/07/2019 10:00 AM EDT 1,000 mg BUpivacaine-EPINEPHrine 0.25 %-1:200,000 injection ONCE PRN, Starting on Sun04/07/19 at 1111, Until Sun04/07/19 at 1647, Intra-Operative (Intra-Procedure), Routine Given 04/07/2019 11:11 AM EDT 10 mLs 19- Surgical Site fentaNYL (PF) 50mcg/mL injection 12.5-25 mcg, Intravenous, [...] Routine documented in this encounter Care Teams Dip Painter Relationship Specialty Start Date End Date Brittany Muhammad DO [address] [place] [address] PCP - General Family Medicine 01/23/19 documented as of this encounter
--- OUTSIDE RECORDS SUMMARY | 2024-05-07 02:55 | XMS_ITS | Encounter Summary ---
Author Organization [facility] [place] [address] Care Team Providers Care Granular Operator Name Role Phone Brittany Muhammad DO Primary Care Provider +1- [phone] Reason for Visit * Reason Onset Date Comments Appointment 06/12/2019 Encounter Details Date Type Department Care Team (Late st Contact Info) Description 06/12/2019 Telephone [place] [address] Neto Ortiz Appointment Social History Tobacco Use Types Packs/Day [...] encounter Miscellaneous Notes * Telephone Encounter - Neto Ortiz - 06/12/2019 2:04 PM EDT Caller and relationship to patient (if other than patient): Genie Alejandre Best time to reach caller: this afternoon Message or Reason for Call: patient stated she is still trying to schedule her referral from December. Appt Needed and Reason: referral Provider: ? documented in this encounter Plan of Treatment Not on file documented as of this encounter Visit Diagnoses Not on filedocumented in this encounter Care Teams Granular Operator Relationship Specialty Start Date End Date Brittany Muhammad DO [address] [place] [address] PCP - General Family Medicine 01/23/19 documented as of this encounter
--- OUTSIDE RECORDS SUMMARY | 2024-05-07 02:55 | XMS_ITS | Encounter Summary ---
Author Organization [facility] [place] [address] Care Team Providers Care Customer Success Manager Name Role Phone Joy, Stefaniejs Ramos APRN Primary Care Provider +1- [phone] Encounter Details Date Type Department Care Team (Late st Contact Info) Description 09/17/2013 7:30 AM EST - 09/17/2013 9:58 AM EST Surgery [place] [address] Brock Garcia MD [facility] [place] [address] LAMINOTOMY, DECOMPRESSION, FORAMINOTOMY, LUMBAR (WRVU 12) Social History Tobacco Use Types Packs/Day Years [...] Sign Reading Time Taken Comments Blood Pressure 127/76 09/17/2013 9:50 AM EST Pulse 73 09/17/2013 9:50 AM EST Temperature 36.2 ??C (97.2 ??F) 09/17/2013 9:00 AM ES T Respiratory Rate 16 09/17/2013 9:50 AM EST Oxygen Saturation 100% 09/17/2013 9:50 AM EST Inhaled Oxygen Concentration - - Weight 103.9 kg (229 lb) 09/17/2013 6:21 AM EST Height 157.5 cm (5' 2) 09/17/2013 6:21 AM EST Body Mass Index 41.88 09/17/2013 6:21 AM EST documented in this encounter Discharge Instructions * Discharge Instructions* Alexandra Cannon RN - 09/17/2013 9:47 AM EST POST ANESTHESIA INSTRUCTIONS Go home, rest, use caution on stairs. Change positions slowly. Do not smoke if you are alone. Diet light to regular as tolerated today. If nausea occurs start with clear liquids and progress slowly. No driving, operating machinery, alcoholic beverages and no important decisions for 24 hours. Monitor IV site for signs and symptoms of infection: increasing redness, swelling, foul drainage, if occurs contact M.D. Patients who have had endotrachial tubes (this tube, used by anesthesia department, is passed down your throat after you are asleep, to ensure safe air passage during your operation). A sore throat is normal due to the tube. Cold liquids or soothing lozenges will help ease the discomfort. The generalized muscle aches are due to the medication given to you just before the tube is inserted. As the medication wears off, you may develop muscle soreness, which usually goes away in 12-24 hours. * Patient Instructions* Treasure Key MD - 09/17/2013 9:31 AM EST Activity: 1. You may perform your daily activities as tolerated but minimize bending at the waist greater than 90 degrees, twisting around your waist, or lifting anything heavier than 5-10 lbs (about a full gallon of water.) 2. In general, guide your activity by the thought that if it hurts, don???t do it. 3. In addition, we recommend taking several walks every day after surgery and gradually increasing your distance and duration over the next 2-4 weeks. Diet: 1. Eat your normal diet, with adequate amounts of protein and fiber. 2. The pain medications you are taking can cause constipation, so increase your intake of fluids and fiber while you are taking them. 3. You should also take an [id number] stool softener, such as Colace or Senna, to facilitate a bowel movement. Drivin. You are not allowed to drive if you are still requiring narcotic pain medication to manage your discomfort. 2. In general, you may begin to drive once you are off of your pain medications and you are comfortable. Call the Spine Center or your Primary Care Physician if you have questions or concerns. Medication: 1. You are being discharged on a narcotic pain medication. Common side effects of this medication include drowsiness, nausea, and constipation. You should only take the smallest amount of pain medication that adequately controls your pain. 2. You may take Tylenol (acetaminophen) around the clock as directed on the package insert for the next 10 days to help reduce the amount of narcotic medication you need. Do not exceed 4000mg of acetaminophen in 24 hrs. Ibuprofen or Aleve may also be taken with dosages as directed on package inserts. 3. If you need a renewal of your pain medication, please contact the Spine Center Prescription Lineat [phone]. PRESCRIPTION RENEWAL REQUESTS CAN TAKE UP TO 3 DAYS TO FILL. YOU WILL BE REQUIRED TO INDUSTRIAL EDUCATION INSTRUCTOR YOUR NARCOTIC REFILL PRESCRIPTION IN PERSON AT [facility] OR IT CAN BE MAILED TO YOUR PHARMACY. Wound Care/Shower/Bath: 1. For the first 72 hours after surgery, shower with a clear plastic Tegaderm dressing covering your wound to keep it dry. 2. After 72 hours you may remove the plastic dressing. At this point you may allow water to run over the wound but do not scrub the surrounding skin. Gently pat dry with a clean, dry towel. 3. At this time you may replace the plastic dressing with clean, dry gauze held in place with tape.Any bandage over the wound should be dry at all times and should be replaced if wet. 4. 4 days after surgery the wound can be left uncovered if there is no continued drainage. (You should continue to cover the wound for as long as there is continued drainage, please see the section below on when to call the Spine Center.) 5. Do not soak the incision underwater (ie lakes, pools, hot tubs, bath tubs, etc) for at least twoweeks until the incision has completely healed. 6. After the gauze dressing is removed the paper strips (steristrips) should be kept in place. You have absorbable sutures under your skin that do not need to be removed. They are covered by the steri-strips. The steri-strips may begin to fall off, and you may trim them as they peel back. After 14 days you can remove the remaining steri-strips if they have not fallen off already. PLEASE CALL US AT [phone] TO SPEAK WITH A SPINE CENTER NURSE IF YOU EXPERIENCE THE FOLLOWING: ?? Fevers greater than 101.5 degrees Fahrenheit ?? Chills or night sweats ?? Nausea or vomiting ?? Wound Redness or drainage after 5 days ?? New numbness or tingling in your hands or feet ?? Incontinence of bowel or bladder ?? Any questions or concerns Important Phone Numbers: Clinical issues, nurse questions: [phone] Medication renewals: [phone] Garcia: [phone] If you need to speak with a Spine Center resident after-hours or on weekends for any of the above listed issues please call [phone] and ask for the Ortho resident on-call. If not urgent, please leave a message with the spine nurse team and your call will be returned within a business day. Follow Up Appointments: 1. You will have follow-up appointments at [facility] as indicated in the ???Future Appointments and Orders?? section of your discharge summary. If X-rays have been ordered for you prior to this appointment you will need to report to the Radiology department, desk 3T, 1 hour prior to your spine center appointment. 2. If you do not have a scheduled follow-up appointment listed at the time of discharge, you will be notified of your scheduled appointment on the next business day. Please call [phone] if you do not hear from us by that time, as your timely follow-up is very important to us. Future Appointments Date Time Provider Department Center 10/15/2013 10:40 AM Brock Garcia MD [facility] [address] CLIN documented in this encounter Medications at Time of Discharge Medication Sig Dispensed Refills Start Date End Date OXYcodone 5 mg capsule Take 1-2 capsules by mouth every 4 hours as needed for Pain. 75 capsule 0 09/17/2013 10/08/2013 mupirocin (BACTROBAN) 2 % cream Apply topically [...] daily. 03/11/2020 documented as of this encounter H&P Notes * Brock Garcia MD - 09/17/2013 6:34 AM EST Patient seen and examined. Agree with assessment by PCP. Pt cont to have severe LBP radiating to her LLE in an L5 distribution. On exam, has 4+/5 L ADF and 4/5 L EHL, numbness on dorsum of L foot. Will proceed with surgery as planned (L L4- 5 diskectomy). Patient is a full-code. * Brock Garcia MD - 09/17/2013 6:32 AM EST Patient Name: Genie Alejandre Patient Age: 38 y.o. Birthdate: 1975 Admit date: 09/17/2013 Attending Physician: Brock Garcia MD Please see H+P by PCP. documented in this encounter Miscellaneous Notes * Miscellaneous - Provider, Scanning - 09/17/2013 3:35 PM EST * Op Note - Brock Garcia MD - 09/17/2013 9:[address] [facility] Operative Note Patient Name: Genie Alejandre : [id number] MR#: [id number] Case Date: 09/17/2013 Surgeon: Surgeon(s) and Role: * Brock Garcia MD - Primary * Treasure Key MD - Resident PREOPERATIVE DIAGNOSIS: Left L4-L5 disk herniation. POSTOPERATIVE DIAGNOSIS: Left L4-L5 disk herniation. PROCEDURE: Left L4-L5 diskectomy. ANESTHESIA: General. OPERATIVE FINDINGS: There was a large, subligamentous disk extrusion on the left at L4-L5 compressing the traversing L5 root, which was red and inflamed. At the conclusion of the case, the left L5 root was free and mobile. INDICATIONS OF PROCEDURE: Ms. Alejandre is a 38-year-old female who has had worsening left L5 radiculopathy in the setting of a left L4-L5 disk herniation. She failed to improve with nonoperative treatment and elected to undergo surgery after a full discussion of potential risks and benefits thereon. DESCRIPTION OF THE PROCEDURE: The patient was taken to the operating room, and general anesthesia was administered. She was positioned prone on the Roly spine table with her legs in a sling. All bony prominences were well padded. A time out was performed to identify the patient and the planned procedure. She received preoperative antibiotics. The back was prepped with Hibiclens and DuraPrep and draped in the usual sterile fashion. The area of the planned incision was injected with 20 mL of 0.25% Marcaine with epinephrine. An incision was made centered over the L4-L5 interspace. The electrocautery was used to dissect down to the level of the fascia, which was split in the midline. The paraspinal muscles were elevated off the spinous processes and laminae of L4 and L5 on the left. A Julia was placed caudal to the L4 lamina, and an intraoperative x-ray was obtained demonstrating our level. A Rama retractor was placed lateral to the left L4-L5 facet joint. The ligamentum flavum was elevated from the cranial edge of the left L5 lamina, and a small left L5 hemilaminotomy was created with Kerrison. The ligamentum flavum was removed from the interspace with a Kerrison. The caudal edge of the left L4 lamina was thinned using a high speed halley, and left L4 hemilaminotomy was created with Kerrison. We then performed a left L4-L5 medial facetectomy, which revealed the red, inflamed traversing L5 root. The root was gently mobilized medially using a [place], demonstrating the disk extrusion. A slit annulotomy was created, and the extruded disk material was removed. All the extruded material was removed with the pituitary as were any superficial, free fragments in the disk space. We did not enter deep within the disk space to remove any well fixed disk material. We used the [place] to confirm there was no longer any compression of the L5 root which was free and mobile. We confirmed there was no compression of the root in the foramen Hemostasis was achieved using bipolar and FloSeal. 40 mg Depo-Medrol was dripped over the red, exposed L5 root. The fascia was closed using interrupted 0 Vicryl. The subcutaneous tissue was closed using interrupted 2-0 Vicryl. The skin was closed using 4-0 Monocryl in a running subcuticular fashion. The wound was injected with additional 20 mL of 0.25% Marcaine. The wound was dressed with Mastisol, Steri-Strips, sterile gauze, and Tegaderm. The patient was flipped back to the hospital bed and awakened from general anesthesia. She was taken to the recovery room in stable condition. There were no obvious complications. * OR Attestation - Brock Garcia MD - 09/17/2013 9:37 AM EST Attestation: Case Date: 09/17/2013 I was present and I participated during the entire procedure (does not need to include opening and closing). BROCK GARCIA MD 09/17/2013 * Brief Op Note - Brock Garcia MD - 09/17/2013 9:36 AM EST Brief Operative Note Patient Name: Genie Alejandre : [id number] MR#: [id number] Case Date: 09/17/2013 Surgeon: Surgeon(s) and Role: * Brock Garcia MD - Primary * Treasure Key MD - Resident-Insurance Follow Up Specialist Preoperative diagnosis: Left L4-5 HNP Postoperative diagnosis: Left L4-5 HNP Procedure(s): Left L4-5 diskectomy (77933) Anesthesia: General Findings: There was a subligamentous disk extrusion on the left at L4-5 compressing the traversing L5 root, which was red and inflamed. At the conclusion of the case, the left L5 root was free and mobile. No CSF. Complications: None Fluids: 900 Estimated Blood Loss: 30 Urine: 0 Drains: None Disposition: awakened from anesthesia, extubated and taken [...] Date/Time Associated Diagnosis Comments XR LUMBAR SPINE 1 VIEW Routine 09/17/2013 8:31 AM EST MODIFIER L5 09/17/2013 7:17 AM EST HNP (herniated nucleus pulposus), lumbar MODIFIER L4 09/17/2013 7:17 AM EST HNP (herniated nucleus pulposus), lumbar LAMINOTOMY, DECOMPRESSION, FORAMINOTOMY, LUMBAR (WRVU 12) 09/17/2013 7:17 AM EST HNP (herniated nucleus pulposus), lumbar documented in this encounter Results * XR lumbar spine 1 view (09/17/2013 8:31 AM EST) Anatomical Region Laterality Modality L-spine N/A Radiographic Ana ging 09/17/2013 8:31 AM EST Narrative 09/17/2013 10:47 AM EST Examination LUMBAR SPINE 1 VIEW/XPORT Clinical History Intraoperative level confirmation Comparison Lumbar spine radiographs 08/14/2013; outside MRI dated 07/08/2013. Technique Single portable cross-table lateral view of the lumbar spine. ?? Findings As seen on prior exams, there are 5 non rib-bearing lumbar vertebral bodies. ?? Lowest intervertebral disc space is identified at L5-S1. ??On the current image, the tip of a surgical instrument is present at the L4-L5 posterior elements. This corresponds to the intended level of discectomy as stated in the preoperative note. Procedure Note Maximus Witt MD - 09/17/2013 Examination LUMBAR SPINE 1 VIEW/XPORT Clinical History Intraoperative level confirmation Comparison Lumbar spine radiographs 08/14/2013; outside MRI dated 07/08/2013. Technique Single portable cross-table lateral view of the lumbar spine. Findings As seen on prior exams, there are 5 non rib-bearing lumbar vertebralbodies. Lowest intervertebral disc space is identified at L5-S1. On the currentimage, the tip of a surgical instrument is present at the L4-L5 posteriorelements. This corresponds to the intended level of discectomy as stated in the preoperative note. Brock Garcia MD IMG DX ORDERABLES documented in this encounter Visit Diagnoses Diagnosis HNP (herniated nucleus pulposus), lumbar Displacement of lumbar intervertebral disc without myelopathy documented in this encounter Administered Medications Inactive Administered Medications - up to 3 most recent administrations Medication Order MAR Action Action Date Dose Rate Site bacitracin injection ONCE PRN, Starting on Sun09/17/13 at 0820, Until Sun09/17/13 at 1448, Intra-Operative (Intra-Procedure), Routine Given 09/17/2013 8:20 AM EST 50,000 Units 19- Surgical Site BUpivacaine (PF) (MARCAINE) 0.25 % (2.5 mg/mL) injection ONCE PRN, Starting on Sun09/17/13 at 0925, Until Sun09/17/13 at 1448, Intra-Operative (Intra-Procedure), Routine Given 09/17/2013 9:25 AM EST 50 mg 19- Surgical Site BUpivacaine-epiNEPHrin e 0.25 %-1:200,000 injection ONCE PRN, Starting on Sun09/17/13 at 0821, Until Sun09/17/13 at 1448, Intra-Operative (Intra-Procedure), Routine Given 09/17/2013 8:21 AM EST 20 mLs gelatin adsorbable 100 (GELFOAM) sponge ONCE PRN, Starting on Sun09/17/13 at 0821, Until Sun09/17/13 at 1448, Intra-Operative (Intra-Procedure), Routine Given 09/17/2013 8:21 AM EST 1 each 19- Surgical Site ketorolac (TORADOL) injection 15 mg 15 mg, Intravenous, ONCE, 1 dose, On Sun09/17/13 at 1000, Immediately prior to d/c, Routine Given 09/17/2013 10:00 AM EST 15 mg methylPREDNISolone acetate (depo-MEDROL) injection ONCE PRN, Starting on Sun09/17/13 at 0821, Until Sun09/17/13 at 1448, Intra-Operative (Intra-Procedure), Routine Given 09/17/2013 8:21 AM EST 40 mg 19- Surgical Site prochlorperazine (COMPAZINE) injection 5 mg 5 mg, Intravenous, EVERY 30 MIN PRN, 2 doses, Starting on Sun09/17/13 at 0940, Until Sun09/17/13 at 1448, Nausea, May repeat 5 mg once in 30 minutes. Call physician if ineffective., PACU Recovery, Routine Given 09/17/2013 11:09 AM EST 5 mg thrombin (Bovine) (THROMBINAR) kit ONCE PRN, Starting on Sun09/17/13 at 0821, Until Sun09/17/13 at 1448, Intra-Operative (Intra-Procedure) Given 09/17/2013 8:21 AM EST 20,000 Units 19- Surgical Site documented in this encounter Active and Recently Administered Medications Times are shown in EST. Scheduled Medication Order 09/15/2013 09/16/2013 09/17/2013 ketorolac (TORADOL) injection 15 mg (COMPLETED) 15 mg, Intravenous, ONCE, 1 dose, On Sun09/17/13 at 1000, Immediately prior to d/c, Routine 1000 (Given - Provid er: Mary Quiñones RN) PRN Medication Order 09/15/2013 09/16/2013 09/17/2013 bacitracin injection (CANCELED) ONCE PRN, Starting on Sun09/17/13 at 0820, Until Sun09/17/13 at 1448, Intra-Operative (Intra-Procedure), Routine 0820 (Given - Provid er: Brock Garcia MD) BUpivacaine (PF) (MARCAINE) 0.25 % (2.5 mg/mL) injection (CANCELED) ONCE PRN, Starting on Sun09/17/13 at 0925, Until Sun09/17/13 at 1448, Intra-Operative (Intra-Procedure), Routine 09 (Given - Provid er: Brock Garcia MD - Comment: 20mls injected at the end of case.) BUpivacaine-epiNEPHrine 0.25 %-1:200,000 injection (CANCELED) ONCE PRN, Starting on Sun09/17/13 at 0821, Until Sun09/17/13 at 1448, Intra-Operative (Intra-Procedure), Routine 0821 (Given - Provid er: Brock Garcia MD - Comment: Injected prior to incision.) gelatin adsorbable 100 (GELFOAM) sponge (CANCELED) ONCE PRN, Starting on Sun09/17/13 at 0821, Until Sun09/17/13 at 1448, Intra-Operative (Intra-Procedure), Routine 08 (Given - Provid er: Brock Garcia MD) methylPREDNISolone acetate (depo-MEDROL) injection (CANCELED) ONCE PRN, Starting on Sun09/17/13 at 0821, Until Sun09/17/13 at 1448, Intra-Operative (Intra-Procedure), Routine 08 (Given - Provid er: Brock Garcia MD) prochlorperazine (COMPAZINE) injection 5 mg (CANCELED) 5 mg, Intravenous, EVERY 30 MIN PRN, 2 doses, Starting on Sun09/17/13 at 0940, Until Sun09/17/13 at 1448, Nausea, May repeat 5 mg once in 30 minutes. Call physician if ineffective., PACU Recovery, Routine 1109 (Given - Provid er: Mary Quiñones RN) thrombin (Bovine) (THROMBINAR) kit (CANCELED) ONCE PRN, Starting on Sun09/17/13 at 0821, Until Sun09/17/13 at 1448, Intra-Operative (Intra-Procedure) 0821 (Given - Provid er: Brock Garcia MD) documented in this encounter Care Teams Customer Success Manager Relationship Specialty Start Date End Date Stefanie Joy APRN [phone] [place] [address] (work) PCP - General 05/08/13 11/26/16 documented as of this encounter
--- OUTSIDE RECORDS SUMMARY | 2024-05-07 02:55 | XMS_ITS | Encounter Summary ---
Author Organization [facility] [place] [address] Care Team Providers Care Manager Culinary Name Role Phone Stefanie Joy Rachel CARDOZO Primary Care Provider +1- [phone] Reason for Visit * Reason Comments Low Back Pain Encounter Details Date Type Department Care Team (Late st Contact Info) Description 03/30/2014 3:40 PM EDT Office [place] [address] Brock Trujillo MD [facility] [place] [address] Recurrent herniation of lumbar disc (Primary Dx) Discharge Disposition: Home Social History [...] - Weight 104.3 kg (230 lb) 03/30/2014 4:13 PM EDT Height 157.5 cm (5' 2) 03/30/2014 4:13 PM EDT Body Mass Index 42.07 03/30/2014 4:13 PM EDT documented in this encounter Progress Notes * Brock Trujillo MD - 03/30/2014 4:27 PM EDT DATE OF SURGERY: 09/17/2013. SURGERY: Left L4-L5 diskectomy. INTERVAL HISTORY: Ms. Alejandre returns today over six months out from surgery. She had been doing quite well and was having no back or leg pain until about two weeks ago when she had the insidious onset of back pain, and it then began radiating down to her left buttock, posterolateral thigh, lateral leg and to dorsum of the left foot. The pain was quite severe for a period of time. Fortunately, it started to improve on its own. She was having no pain while sitting in the office today. She did note it a little bit with a long driving and shopping, though it did not limit her much. She did take some naproxen initially, though she has not needed any pain medication recently. She denies any fevers, chills, or wound problems. She denies any change in her bowel or bladder function. PHYSICAL EXAMINATION: General: The patient is comfortable, no acute distress. Back: She has a well-healed midline incision. The back is nontender to palpation. Neurologic Exam: She has 5/5 strength in all lower extremity motor groups with a possible exception of her left EHL, maybe slightly weak, 4+/5. She has some diminished sensation on dorsum and lateral border of the left foot. Straight leg raise on the left caused her some left buttock pain, but no pain radiating down the leg. IMAGING: MRI with and without contrast obtained today demonstrates a recurrent disk herniation on the left at L4-L5 that displaces the traversing L5 root. The periphery of the material does enhance, though centrally it is not enhancing, consistent with a recurrent disk herniation. ASSESSMENT/PLAN: Ms. Alejandre is a 38-year-old female who presents with a recurrent left L4-L5 disk herniation with symptoms for about two weeks that seem to be spontaneously improving. I suggest that often times this has a positive natural history. I suggested options were antiinflammatory medications, physical therapy, and injections. She wants to hold off on any specific treatment at this point. If she wants to try therapy or an injection, she can let us know. If she gets to the point where the symptoms are not improving, she could consider revision surgery. If that is the case, she can return to see me with AP and lateral flexion and extension just prior to the visit. Surgery in her case would most likely be a revision left L4-L5 diskectomy. Given her size and difficulty with wound healing last time, hopefully she can avoid this. If it continues to improve on its own, she does not need to go ahead with any specific treatment. documented in this encounter Plan of Treatment Not on file documented as of this encounter Visit Diagnoses Diagnosis Recurrent herniation of lumbar disc- Primary Displacement of lumbar intervertebral disc without myelopathy documented in this encounter Care Teams Manager Culinary Relationship Specialty Start Date End Date Stefanie Joy APRN [phone] [place] [address] PCP - General 05/08/13 11/26/16 documented as of this encounter
--- OUTSIDE RECORDS SUMMARY | 2024-05-07 02:55 | XMS_ITS | Encounter Summary ---
Author Organization [facility] [place] [address] Care Team Providers Care Digital Watch Assembler Name Role Phone Stefanie Joy CAS Primary Care Provider +1- [phone] Reason for Visit * Reason Comments Follow Up Surgery Encounter Details Date Type Department Care Team (Late st Contact Info) Description 10/08/2013 4:20 PM EST Office [place] [address] Brock Trujillo MD [facility] [place] [address] HNP (herniated nucleus pulposus), lumbar (Primary Dx) Discharge Disposition: Home Social History [...] as of this encounter Progress Notes * Brock Trujillo MD - 10/08/2013 4:19 PM EST DATE OF SURGERY: 09/17/2013. SURGERY: Left L4-L5 diskectomy. INTERVAL HISTORY: Ms. Alejandre returns today almost three weeks out from surgery. She has been doing reasonably well. Her left lower extremity pain is completely resolved. She occasionally gets some back pain radiating to left buttock. About two days ago, she noted some drainage from the wound, though this has since markedly slowed down. She denies any fevers or chills. She is not needing any pain medication at this point in time. PHYSICAL EXAMINATION: General: The patient is comfortable, in no acute distress. Back: There is some superficial dehiscence of the wound. This has a granulating base to it. There is minimal serous drainage on the dressing. No surrounding erythema. Neurologic Exam: She has 5/5 strength in all lower extremity motor groups. She has mild decreased sensation in the dorsum of her left foot. IMAGING: AP and lateral views of the lumbar spine were obtained today. These demonstrate no change in alignment of the spine. The hemilaminotomy is visible on the left at L4-L5. ASSESSMENT/PLAN: Ms. Alejandre is almost three weeks out from her lumbar diskectomy. Her radicular symptoms are essentially resolved. She does have some minor wound dehiscence, though this is quite superficial. There are no signs of active infection. I will put her on Keflex for two weeks and then see her back in three weeks to see if the wound healing has progressed. I told her if she were to develop fevers, chills, or worsening wound drainage, that we should see her back before then. documented in this encounter Plan of Treatment Not on file documented as of this encounter Visit Diagnoses Diagnosis HNP (herniated nucleus pulposus), lumbar- Primary Displacement of lumbar intervertebral disc without myelopathy documented in this encounter Care Teams Digital Watch Assembler Relationship Specialty Start Date End Date Stefanie Joy APRN [id number] [place] [address] PCP - General 05/08/13 11/26/16 documented as of this encounter
--- OUTSIDE RECORDS SUMMARY | 2024-05-07 02:55 | XMS_ITS | Encounter Summary ---
Author Organization [facility] [place] [address] Care Team Providers Care Cementer Machine Name Role Phone Brittany Muhammad DO Primary Care Provider +1- [phone] Encounter Details Date Type Department Care Team (Late st Contact Info) Description 03/08/2020 Telephone [place] [id number] Elana Luong CMA Social History Tobacco Use Types Packs/Day Years [...] encounter Miscellaneous Notes * Telephone Encounter - Elana Luong CMA - 03/08/2020 9:59 AM EDT GAP Vegetable Harvest Worker Pre-Telemedicine Phone Note [x] Patient not reached [] Patient reached and the following information was reviewed/obtained per protocol: [] Confirmed patient name and date of [] Confirmed telemedicine tyesha (Vidyo and Virtual Visit) is downloaded and functioning [] Confirmed location of patient - TeleVisit is taking place in [] [place] [] [place] [] If not on [facility], working on signing up for [facility] [] Confirmed has completed any pre-visit questionnaires [] If has not received required pre-visit questionnaires, send via [facility] [] Reviewed patient medications [] Documented self-reported vitals: [] [] Heigh t[] pulse recorded: Weight [] Other information or concerns documented in this encounter Plan of Treatment Not on file documented as of this encounter Goals Goal Patient Goal Type Associated Problems Recent Progress Patient-Stated? Author medication Lifestyle On track( 11:55 AM EDT) Crystal Wells APRN Note: Continue metformin 1000mg in the evening with food movement Lifestyle On track( 11:55 AM EDT) Crystal Wells, CAS Note: Continue what might help make the [...] Lifestyle On track( 11:55 AM EDT) Crystal Wells, INDUSTRIAL ROBOTICS MECHANIC Note: Continue working with therapist to manage [...] night Follow up with sleep lab at [facility] regarding treatment of sleep apnea [...] 1/4 avocado, 1-2 tbsp dressing 1-2 cups [id number] veggies Write down in a notebook with [...] on filedocumented in this encounter Care Teams Cementer Machine Relationship Specialty Start Date End Date Brittany Muhammad DO [address] [place] [address] PCP - General Family Medicine 01/23/19 documented as of this encounter
--- OUTSIDE RECORDS SUMMARY | 2024-05-07 02:55 | XMS_ITS | Encounter Summary ---
Author Organization [facility] Address [facility] [place] [address] Care Team Providers Care Nurse Receptionist Name Role Phone MurielBrittany nieves Primary Care Provider +1- [phone] Encounter Details Date Type Department Care Team (Late st Contact Info) Description 04/11/2019 Telephone [place] [address] Olive Liu MD [facility] [place] [address] Social History Tobacco Use Types Packs/Day Years [...] encounter Miscellaneous Notes * Telephone Encounter - Olive Liu MD - 04/11/2019 5:11 PM EDT I left patient a VM with her pathology results and letting her know I've sent a new synthroid prescription to her preferred pharmacy. documented in this encounter Plan of Treatment Not on file documented as of this encounter Visit Diagnoses Not on filedocumented in this encounter Care Teams Nurse Receptionist Relationship Specialty Start Date End Date Brittany Muhammad DO [address] [facility] [place] [address] PCP - General Family Medicine 01/23/19 documented as of this encounter
--- OUTSIDE RECORDS SUMMARY | 2024-05-07 02:55 | XMS_ITS | Encounter Summary ---
Author Organization [facility] Address [facility] [place] [address] Care Team Providers Care Gridcap Machine Operator Name Role Phone Brittany Muhammad DO Primary Care Provider +1- [phone] Encounter Details Date Type Department Care Team (Late st Contact Info) Description 06/11/2019 Orders [place] [address] Kenia Khanna MD [facility] ENDOCRIN[place] [address] Papillary microcarcinoma of thyroid Social History Tobacco [...] as of this encounter Visit Diagnoses Diagnosis Papillary microcarcinoma of thyroid documented in this encounter Care Teams Gridcap Machine Operator Relationship Specialty Start Date End Date Brittany Muhammad DO [address] [place], [place] [id number] PCP - General Family Medicine 01/23/19 documented as of this encounter
--- OUTSIDE RECORDS SUMMARY | 2024-05-07 02:55 | XMS_ITS | Encounter Summary ---
Author Organization [facility] Address [facility] [place] [address] Care Team Providers Care Returns Supervisor Name Role Phone Brittany Muhammad DO Primary Care Provider +1- [phone] Reason for Referral * Consultation (Routine) - Closed Specialty Diagnoses / Procedures Referred By Cash reese Referred To Contact Weight and Wellness Diagnoses Adult BMI 45.0-49.9 kg/sq m Kenia Khanna MD [facility] [place] [address] [facility] [address] [place] [address] Referral ID Status Reason Start Date Expiration Date V isits Requested Visits Authorized [id number] Closed Consult, Test & Treat 10/24/2019 10/23/2020 1 1 Encounter Details Date Type Department Care Team (Latest Contact Info) Description 10/24/2019 9:30 AM EST Office [place] [address] Kenia Khanna MD [facility] [place] [address] Adult BMI 45.0-49.9 kg/sq m; PCOS (polycystic ovarian syndrome); Papillary microcarcinoma of thyroid Social History Tobacco [...] Sign Reading Time Taken Comments Blood Pressure 136/70 10/24/2019 9:38 AM EST Pulse 75 10/24/2019 9:38 AM EST Temperature - - Respiratory Rate - - Oxygen Saturation - - Inhaled Oxygen Concentration - - Weight 116.6 kg (257 lb) 10/24/2019 9:38 AM EST Height 160 cm (5' 3) 10/24/2019 9:38 AM EST Body Mass Index 45.53 10/24/2019 9:38 AM EST documented in this encounter Patient Instructions * Patient Instructions* Kenia Khanna - 10/24/2019 9:30 AM EST Come into the 3L lab for a thyroglobulin level and Free T4 the week before your visit on January 11 We're stopping hctz and starting spironolactone 50mg qd- let me know if your BP is not well controlled on this- we can go up to 100mg daily as needed. 2 weeks after we start the spironolactone, use the lab slip I gave you to have your electrolytes checked. The weight and wellness center will call you to schedule a visit. documented in this encounter Progress Notes * Keina Khanna - 10/24/2019 9:30 AM EST Subjective: Patient ID: Genie Alejandre is a 44 y.o. female. HPI Ms. Genie Alejandre is a 43 y/o female with a past medical hx significant for MDD, CARLOS, and R renal angiolipoma presenting in f/u for discussion re incidental papillary thyroid micro-ca. Previous visit: Genie reports that she first felt the lump about 2 months ago on the left side. It feels like there is some pressure over the isthmus lately- pt underwent CT scan 01/22/2019 with Pulmonology (Yinka) at [facility] which reportedly did have tracheal deviation [...] family or personal hx of clotting disorders. Today: Heavy period after starting the oral contraceptive pill- is experiencing monthly periods now. Has noted improvement in acne, no changes in mood with the OCP. Does remain bothered by excess hirsutism.Is caring for her elderly grandmother. Would be interested in going to the weight and wellness center since her weight is not budging. Social Hx: Lives in [facility] Former smoker- quit in 2005 Infrequent alcohol use Lives with dog Family Hx: Family is not big on doctors No known thyroid ca Aunt with hypOthyroidism from Gerhard's in family Meds: Current Outpatient Medications: ??? citalopram (CeleXA) 20 mg Tablet, TAKE ONE TABLET BY MOUTH DAILY, Disp: , Rfl: ??? lamoTRIgine (LAMICTAL) 150 mg Tablet, TK 1 T PO D, Disp: , Rfl: 2 ??? norgestimate-ethinyl estradiol (TRI SPRINTEC) 0.18/0.215/0.25 mg-35 mcg (28) Tablet, Take 1 tablet by mouth daily., Disp: 84 tablet, Rfl: 3 ??? levothyroxine (SYNTHROID) 137 mcg Tablet, Take 1 tablet by mouth daily., Disp: 90 tablet, Rfl: 3 ??? SUMAtriptan (IMITREX) 50 mg Tablet, , Disp: , Rfl: 0 ??? pantoprazole (PROTONIX) 20 mg Tablet, Delayed Release (E.C.), 40 mg 2 times daily., Disp: , Rfl: 0 ??? losartan (COZAAR) 25 mg Tablet, Take 1 tab by mouth daily, Disp: , Rfl: 0 ??? gabapentin (NEURONTIN) 600 mg Tablet, 2 times daily., Disp: , Rfl: 0 ??? hydroCHLOROthiazide (HYDRODIURIL) 12.5 mg Tablet, take 1 tablet by mouth once daily, Disp: , Rfl: 0 ??? clonazePAM (KLONOPIN) 1 mg tablet, Take 1 mg by mouth 2 times daily as needed., Disp: , Rfl: ??? multivitamin (THERAGRAN) tablet, Take 1 tablet by mouth daily., Disp: , Rfl: No biotin - No iodine Review of Systems HENT: Negative for trouble swallowing. Respiratory: Negative for shortness of breath. Saw pulmonology yesterday Genitourinary: Positive for menstrual problem (menorrhagia). Skin: Positive for rash (acne on the mandible). No results found for this or any previous visit (from the past 24 hour(s)). Objective:BP 136/70 Pulse 75 Ht 160 cm (5' 3) Wt 116.6 kg (257 lb) BMI 45.53 kg/m?? Physical Exam Gen: NAD, AAOx3, speaking full sentences, pleasant demeanor, obese habitus Skin: prominent comedones on the chin, neck, hirsutism of the face which pt manages, no acanthosis nigricans, no rashes, no bruising, no purple striae, no pretibial myxedema or hyperpigmentation Eyes: PERRL, EOMI, anicteric sclerae without injection, no proptosis or lid lag ENT: moist oral mucosa Neck: small surgical scar, well healed Pulm: breathing comfortably on room air Cardiac: reg s1s2, no m/r/g MSK: 5/5 strength in all muscle groups of the upper and lower extremities, no LE edema Neuro: no tremor with outstretched hands 03/2019: B - Right lobe of thyroid, [...] 0.27 - 4.20 mcIU/mL 2.85 0.08 (L) Assessment and Plan: Ms. Genie Alejandre is a 44 y/o female with a past medical hx significant for MDD, CARLOS and renal angio-lipoma presenting in f/u for discussion related to polycystic ovarian syndrome manifesting as hirsutism, menorrhagia, and acne. Last visit, we initiated an OCP and since this initiation, there has been an improvement in menorrhagia and acne. Today, we substituted spironolactone 50mg for her hctz 12.5mg in hopes of improving hirsutism with this medication. Likely will up-titrate to 100mg qd if not 100mg BID with tolerance. Will check a BMP locally 2 weeks after initiating this med. We did discuss today the increased risk of cardiovascular disease with PCOS and the importance of latosha loss if possible. Genie is willing to go to the weight and wellness center which I think would be beneficial for her. Previously, we have discussed the increased risk of DVT in the setting of BMI45 and age >40 #PCOS with longstanding hx of oligo/an-ovulation/hirsutism and acne -continue norgestimate ethinyl estradiol-pt aware age and BMI increase risk of DVT -pt does not smoke, no hx of migraines, no personal or family hx of DVT -switch hctz to spironolactone 50mg qd--> up titrate to 50mg BID and possibly 100mg BID, assess BMP in 2 weeks #BMI45 -pt willing to go to the weight and wellness center, referral placed -could consider GLP-1 agonist Case discussed with staff Motion Picture Scene Builder Juan Albright DO. Pt prefers to be reached at cell #[phone]. 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 Kenia Khanna MD PGY-5 [facility] Endocrinology Fellow Pager #[phone] * Kehinde Albright DO - 10/24/2019 9:30 AM EST I have seen the patient and reviewed Dr Khanna's history and I agree with the details as written. Theassessment and plan were formulated in discussion with me and I agree with them as documented. Kehinde Albright DO, MS [employer] [facility] Section of Endocrinology [facility] documented in this encounter Plan of Treatment Scheduled Orders Name Type Priority Associated Diagnoses Orde r Schedule Thyroglobulin Lab Routine Papillary microcarcinoma of thyroid Expected: 10/24/2019, Expires: 04/24/2020 Scheduled Referrals Name Type Priority Associated Diagnoses Orde r Schedule Referral to [facility] Center Outpatient Referral Routine Adult BMI 45.0-49.9 kg/sq m Ordered: 10/24/2019 documented as of this encounter Results * T4, free (03/02/2020 12:59 PM EDT) Free T4 1.35 0.93 - 1.70 ng/dL [facility] Blood specimen (specimen) 03/02/2020 12:59 PM EDT 03/02/2020 1:16 PM EDT Narrative Resulting Agency Comment Spec In Lab Kehinde Albright DO CHEMISTRY ORDERABLES [facility] [place] [address] * (ABNORMAL) Basic Metabolic Panel (non-fasting) (03/02/2020 12:59 PM EDT) Glucose 168 65 - 199 mg/dL [facility] Comment:Diabetes: >=200 mg/d L plus symptoms Blood Urea Nitrogen 16 8 - 18 mg/dL [facility] Creatinine 1.23(H) 0.70 - 1.20 mg/dL [facility] Sodium 133(L) 135 - 145 mmol/L [facility] Potassium 4.0 3.5 - 5.0 mmol/L [facility] Comment: Please note: ??Patients with WBC >100,000 may have falsely elevated Potassium levels. ??For accurate Potassium quantification in these patients send serum separator tube (gold top) for subsequent determinations. ??Contact the Clinical Chemistry Laboratory if there are any questions. Chloride 97(L) 98 - 107 mmol/L [facility] Carbon Dioxide 22 22 - 31 mmol/L [facility] Anion Gap 14 5 - 15 mmol/L [facility] Calcium 9.8 8.5 - 10.5 mg/dL [facility] Est Glomerular Filtration Rate 53(L) >=60 mL/min/1. 73 m?? [facility] Comment: The eGFR was calculated using the CKD-EPI equation. As with all creatinine based estimates of kidney function, eGFR values calculated with the CKD-EPI equation are not accurate in patients with acute kidney failure, extremes of body mass or the acutely ill. http://[employer]/[facility]ANDnkf eGFR 61 >=60 mL/min/1. 73 m?? [facility] Comment: The eGFR was calculated using the CKD-EPI equation. As with all creatinine based estimates of kidney function, eGFR values calculated with the CKD-EPI equation are not accurate in patients with acute kidney failure, extremes of body mass or the acutely ill. [email or web address]/DHnkf Blood specimen (specimen) 03/02/2020 12:59 PM EDT 03/02/2020 1:16 PM EDT Narrative Resulting Agency Comment Spec In Lab Kehinde Albright DO CHEMISTRY ORDERABLES [facility] [place] [address] documented in this encounter Visit Diagnoses Diagnosis Adult BMI 45.0-49.9 kg/sq m Body Mass Index 45.0-49.9, adult PCOS (polycystic ovarian syndrome) Polycystic ovaries Papillary microcarcinoma of thyroid documented in this encounter Care Teams Returns Supervisor Relationship Specialty Start Date End Date Brittany Muhammad DO [address] [place] [address] PCP - General Family Medicine 01/23/19 documented as of this encounter
--- OUTSIDE RECORDS SUMMARY | 2024-05-07 02:55 | XMS_ITS | Encounter Summary ---
[place] [address] Care Team Providers Care Sleeve Fixer Name Role Phone Brittany Muhammad DO Primary Care Provider +1- [phone] Encounter Details Date Type Department Care Team (Latest Contact Info) Description 03/02/2020 12:40 PM EDT Laboratory Appointment Lab [address] [place] [id number] Papillary microcarcinoma of thyroid; PCOS (polycystic ovarian syndrome) Social History Tobacco [facility] of [facility] documented as of this encounter Procedures Procedure Name Priority Date/Time Associated Diagnosis Comments HC THYROGLOBULIN Routine 03/02/2020 12:5 9 PM EDT Papillary microcarcinoma of thyroid HC THYROID STIMULATING HORMONE, SERUM Routine 03/02/2020 12:59 PM EDT Papillary microcarcinoma of thyroid HC VENIPUNCTURE Routine 03/02/2020 12:59 PM EDT Papillary microcarcinoma of thyroid BASIC METABOLIC PANEL Routine 03/02/2020 12:59 PM EDT PCOS (polycystic ovarian syndrome) documented in this encounter Results * (ABNORMAL) Basic Metabolic Panel (non-fasting) (03/02/2020 12:59 PM EDT) Glucose 168 65 - 199 mg/dL [facility] Comment:Diabetes: >=200 mg/d L plus symptoms Blood Urea Nitrogen 16 8 - 18 mg/dL [facility] Creatinine 1.23(H) 0.70 - 1.20 mg/dL [facility] Sodium 133(L) 135 - 145 mmol/L [facility] Potassium 4.0 3.5 - 5.0 mmol/L [facility] Comment: Please note: ??Patients with WBC >100,000 may have falsely elevated Potassium levels. ??For accurate Potassium quantification in these patients send serum separator tube (gold top) for subsequent determinations. ??Contact the Clinical Chemistry Laboratory if there are any questions. Chloride 97(L) 98 - 107 mmol/L [facility] Carbon Dioxide 22 22 - 31 mmol/L [facility] Anion Gap 14 5 - 15 mmol/L [facility] Calcium 9.8 8.5 - 10.5 mg/dL [facility] Est Glomerular Filtration Rate 53(L) >=60 mL/min/1. 73 m?? [facility] Comment: The eGFR was calculated using the CKD-EPI equation. As with all creatinine based estimates of kidney function, eGFR values calculated with the CKD-EPI equation are not accurate in patients with acute kidney failure, extremes of body mass or the acutely ill. http://[employer]/[facility] PRAGUEnkf eGFR 61 >=60 mL/min/1. 73 m?? [facility] Comment: The eGFR was calculated using the CKD-EPI equation. As with all creatinine based estimates of kidney function, eGFR values calculated with the CKD-EPI equation are not accurate in patients with acute kidney failure, extremes of body mass or the acutely ill. http://[employer]/DHnkf Blood specimen (specimen) 03/02/2020 12:59 PM EDT 03/02/2020 1:16 PM EDT Narrative Resulting Agency Comment Spec In Lab Kehinde Albright DO CHEMISTRY ORDERABLES [facility] [place] [address] * (ABNORMAL) TSH (03/02/2020 12:59 PM EDT) Thyroid Stimulating Hormone 56.60(H) 0.27 - 4.20 mcIU/mL [facility] Blood specimen (specimen) 03/02/2020 12:59 PM EDT 03/02/2020 1:16 PM EDT Narrative Resulting Agency Comment Spec In Lab Marco A Benoit MD CHEMISTRY ORDERABLES Performing Organization Address City/[facility]/ZIP Co de Phone Number [facility] [place] [address] * Thyroglobulin (03/02/2020 12:59 PM EDT) Thyroglobulin 0.6 <=54.9 ng/mL [facility] Thyroglob Ab <20.0 0.0 - 40.0 IU/mL [facility] Blood specimen (specimen) 03/02/2020 12:59 PM EDT 03/03/2020 7:26 AM EDT Narrative Resulting Agency Comment Spec In Lab Marco A Benoit MD LAB SEND OUT ORDERAB LES Performing Organization Address City/[facility]/ZIP Co de Phone Number [facility] [place] [address] * T4, free (03/02/2020 12:59 PM EDT) Free T4 1.35 0.93 - 1.70 ng/dL [facility] Blood specimen (specimen) 03/02/2020 12:59 PM EDT 03/02/2020 1:16 PM EDT Narrative Resulting Agency Comment Spec In Lab Kehinde Albright DO CHEMISTRY ORDERABLES Performing Organization Address City/[facility] Co de Phone Number [facility] [place] [address] documented in this encounter Visit Diagnoses Diagnosis Papillary microcarcinoma of thyroid PCOS (polycystic ovarian syndrome) Polycystic ovaries documented in this encounter Care Teams Sleeve Fixer Relationship Specialty Start Date End Date Brittany Muhammad DO [address] [place] [address] PCP - General Family Medicine 01/23/19 documented as of this encounter
--- OUTSIDE RECORDS SUMMARY | 2024-05-07 02:55 | XMS_ITS | Encounter Summary ---
Author Organization [facility] Address [facility] [place] [address] Care Team Providers Care Vocal Music Instructor Name Role Phone Brittany Muhammad DO Primary Care Provider +1- [phone] Encounter Details Date Type Department Care Team (Late st Contact Info) Description 01/01/2020 Orders Only [place] [address] Kenia Khanna MD [facility] [place] [address] Papillary microcarcinoma of thyroid; Adult BMI 45.0-49.9 kg/sq m Social History [...] Visit Diagnoses Diagnosis Papillary microcarcinoma of thyroid Adult BMI 45.0-49.9 kg/sq m Body Mass Index 45.0-49.9, adult documented in this encounter Care Teams Vocal Music Instructor Relationship Specialty Start Date End Date Brittany Muhammad DO [address] [facility] [place] [address] PCP - General Family Medicine 01/23/19 documented as of this encounter
--- OUTSIDE RECORDS SUMMARY | 2024-05-07 02:55 | XMS_ITS | Encounter Summary ---
[facility] Organization [facility] [place] [address] Care Team Providers Care Telegraphic Typewriter Installer Name Role Phone Brittany Muhammad DO Primary Care Provider +1- [phone] Reason for Visit * Reason Onset Date Comments Appointment 05/13/2019 Encounter Details Date Type Department Care Team (Late st Contact Info) Description 05/13/2019 Telephone [place] [address] Mita Ross Appointment Social History Tobacco Use Types Packs/Day [...] encounter Miscellaneous Notes * Telephone Encounter - Mita Ross - 05/13/2019 1:55 PM EDT Caller and relationship to patient (if other than patient): Genie Best time to reach caller: any Message or Reason for Call: Genie called to see if she needed to schedule a 4 mos follow up with Dr. Khanna or Dr. Watts Appt Needed and Reason: ??? Provider: Dr Khanna and Dr. Watts documented in this encounter Plan of Treatment Not on file documented as of this encounter Visit Diagnoses Not on filedocumented in this encounter Care Teams Telegraphic Typewriter Installer Relationship Specialty Start Date End Date Brittany Muhammad DO [address] [place] [address] PCP - General Family Medicine 01/23/19 documented as of this encounter
--- OUTSIDE RECORDS SUMMARY | 2024-05-07 02:55 | XMS_ITS | Encounter Summary ---
Author Organization [facility] [place] [address] Care Team Providers Care Softlines Supervisor Name Role Phone MurielmagdysilvianoBrittany reynolds Primary Care Provider +1- [phone] Encounter Details Date Type Department Care Team (Late st Contact Info) Description 02/24/2020 External Results Weight and Wellness at [facility] [address] [place] [id number] Hermann Nelson, RN Social History Tobacco Use Types Packs/Day [...] as of this encounter Progress Notes * Hermann Nelson RN - 02/24/2020 9:02 AM EDT Added lab results to chart per scanned documents. Thank you, Hermann Nelson RN 02/24/2020 9:04 AM documented in this encounter Plan of Treatment Not on file documented as of this encounter Procedures Procedure Name Priority Date/Time Associated Diagnosis Comments [facility] EXTERNAL RESULT PANEL Routine 11/19/2019 documented in this encounter Results * (ABNORMAL) [facility] External Results (11/19/2019) Glucose Fasting 141(ExtH) Comment:74-106 Blood Urea Nitrogen 18 Creatinine 1.15(ExtH) Comment:0.55-1.02 Sodium 140 Potassium 4.7 Chloride 104 Carbon Dioxide 26 Anion Gap 10 Calcium 9.4 Est Glomerular Filtration Rate 50.8 11/19/2019 Historical Provider POINT OF CARE RICHIE T ORDERABLES documented in this encounter Visit Diagnoses Not on filedocumented in this encounter Care Teams Softlines Supervisor Relationship Specialty Start Date End Date Brittany Muhammad DO [address] [place] [address] PCP - General Family Medicine 01/23/19 documented as of this encounter
--- OUTSIDE RECORDS SUMMARY | 2024-05-07 02:55 | XMS_ITS | Encounter Summary ---
Author Organization [facility] Address [facility] [place] [address] Care Team Providers Care Heater Planer Operator Name Role Phone RubioBrittany reynolds Jose BARRETO Primary Care Provider +1- [phone] Encounter Details Date Type Department Care Team (Late st Contact Info) Description 04/11/2019 Orders Only [place] [address] Olive Liu MD [facility] [place] [address] S/P thyroidectomy (Primary Dx); Multiple thyroid nodules Social History Tobacco Use [...] on file documented as of this encounter Results * (ABNORMAL) TSH (05/22/2019 12:17 PM EDT) Thyroid Stimulating Hormone 0.08(L) 0.27 - 4.20 mcIU/mL [facility] Blood specimen (specimen) 05/22/2019 12:17 PM EDT 05/22/2019 12:31 PM EDT Narrative Resulting Agency Comment Spec In Lab Olive Liu MD CHEMISTRY ORDERAB LES [facility] [place] [address] documented in this encounter Visit Diagnoses Diagnosis S/P thyroidectomy- Primary Other postprocedural status Multiple thyroid nodules Nontoxic multinodular goiter documented in this encounter Care Teams Heater Planer Operator Relationship Specialty Start Date End Date Brittany Muhammad DO [address] [facility] [place] [address] PCP - General Family Medicine 01/23/19 documented as of this encounter
--- OUTSIDE RECORDS SUMMARY | 2024-05-07 02:55 | XMS_ITS | Encounter Summary ---
Author Organization [facility] Address [facility] [address] [place] [address] Care Team Providers Care Lead Applications Developer Name Role Phone Brittany Muhammad Primary Care Provider +1- [phone] Reason for Visit * Reason Comments Follow-up Encounter Details Date Type Department Care Team (Latest Contact Info) Description 07/11/2019 3:00 PM EDT Office [place] [address] Kenia Khanna MD [facility] [place] [address] Papillary microcarcinoma of thyroid; PCOS (polycystic ovarian [...] Sign Reading Time Taken Comments Blood Pressure 134/80 07/11/2019 3:01 PM EDT Pulse 71 07/11/2019 3:01 PM EDT Temperature - - Respiratory Rate 16 07/11/2019 3:01 PM EDT Oxygen Saturation 100% 07/11/2019 3:01 PM EDT Inhaled Oxygen Concentration - - Weight 118.8 kg (262 lb) 07/11/2019 3:01 PM EDT Height 157.5 cm (5' 2) 07/11/2019 3:01 PM EDT Body Mass Index 47.92 07/11/2019 3:01 PM EDT documented in this encounter Progress Notes * Kenia Khanna CW - 07/11/2019 3:00 PM EDT Subjective: Patient ID: Genie Alejandre [...] CT scan 01/22/2019 with Pulmonology (Yinka) at [facility] which reportedly did have tracheal deviation and does endorse dyspnea.. Endorses dysphagia with the head turned to the left. Underwent FNA 12/2018 which was AUS, Thyroseq was inadequate. Underwent total thyroidectomy 04/07/2019. Today: As noted previously, cytology returned AUS on [...] family or personal hx of clotting disorders. Social Hx: Lives in [facility] Former smoker- quit in 2005 Infrequent alcohol use Lives with dog Family Hx: Family is not big on doctors No known thyroid ca Aunt with hypOthyroidism from Gerhard's in family Meds: Current Outpatient Medications: ??? lamoTRIgine (LAMICTAL) 150 mg Tablet, TK 1 T PO D, Disp: , Rfl: 2 ??? levothyroxine (SYNTHROID) 137 mcg Tablet, Take [...] Recent Results (from the past 24 hour(s)) T4, free Result Value Ref Range Free T4 1.62 0.93 - 1.70 ng/dL TSH Result Value Ref Range TSH 1.95 0.27 - 4.20 mcIU/mL Objective:BP 134/80 Pulse 71 Resp 16 Ht 157.5 cm (5' 2) Wt 118.8 kg (262 lb) SpO2 100% BMI 47.92 kg/m?? 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 As noted above, surgical margins were negative. There was no angioinvasion or lymphatic invasion. 0/1 assessed lymph nodes were negative for malignancy. Lateral neck u/s today was normal. Previously, Genie did not tolerate 175mcg of levothyroxine given sx of anxiety with this dose. Her dose was decreased to 137mcg. Our goal TSH should be <2 mcIU/mL so we may want to up-titrate this just a touch but for nowwill leave alone. Otherwise, Genie endorses menorrhagia and acne that is bothersome. She meets 2/3 [place] criteria: longstanding hx of oligo/an-ovulation and clinical evidence of excess androgens manifesting as hirsutism and acne. We discussed the utility of an oral hormonal contraceptive to reduce acne burden. Over time, it may also reduce hirsutism and menorrhagia. Advised that should pt develop migraines on t he oral contraceptive, she should let me know. Pt's weight does increase the risk for thromboembolic phenomena so I warned her to ambulate if participating in long haul air or car travel. May initiate spironolactone later on if hirsutism remains significant. Will need to adjust other anti-hypertensive meds if I do that. Did recommend Genie consider a consultation with the weight and wellness clinic. She will think about this. #micro PTC, R side -TSH is acceptable- previously was symptomatic with 175mcg levothyroxine -may want to increase a touch once mood is evened out for goal TSH <2 -thyroglobulin repeat is pending -lateral neck ultrasound normal today, repeat in 1 year #suspected PCOS -initiate norgestimate ethinyl estradiol -pt does not smoke, no hx of migraines, no personal or family hx of DVT -consider initiation of spironolactone should hirsutism continue -will need to adjust other anti-hypertensives if this is done Case discussed and seen with staff Time Study Statistician Marco A Benoit MD. Pt prefers to be reached at cell #[phone]. Return to care in Oct 2019. Kenia Khanna MD PGY-5 [facility] Fellow Pager #[phone] * Marco A Benoit MD - 07/11/2019 3:00 PM EDT I saw this patient with Dr Khanna . I reviewed the carter portions of the history and physical exam, andreviewed pertinent lab data. I answered all patient questions. I was involved in all medical decision making and agree with this plan. documented in this encounter Plan of Treatment Not on file documented as of this encounter Visit Diagnoses Diagnosis Papillary microcarcinoma of thyroid PCOS (polycystic ovarian syndrome) Polycystic ovaries documented in this encounter Care Teams Lead Applications Developer Relationship Specialty Start Date End Date Brittany Muhammad DO [address] [place] [address] PCP - General Family Medicine 01/23/19 documented as of this encounter
--- OUTSIDE RECORDS SUMMARY | 2024-05-07 02:55 | XMS_ITS | Encounter Summary ---
Author Organization [facility] [place] [address] Care Team Providers Care Director Franchise Sales Name Role Phone Joy, Stefaniejs Ramos APRN Primary Care Provider +1- [phone] Reason for Visit * Reason Comments Other f/u LT L4-5 Disc EXC 09/17/13 Encounter Details Date Type Department Care Team (Late st Contact Info) Description 10/31/2013 9:20 AM EST Office [place] [address] Brock Trujillo MD [facility] [place] [address] HNP (herniated nucleus pulposus), lumbar (Primary Dx) [...] - Inhaled Oxygen Concentration - - Weight 102.1 kg (225 lb) 10/31/2013 9:16 AM EST Height 157.5 cm (5' 2) 10/31/2013 9:16 AM EST Body Mass Index 41.15 10/31/2013 9:16 AM EST documented in this encounter Progress Notes * Brock Trujillo MD - 10/31/2013 9:31 AM EST DATE OF SURGERY: 09/17/2013 SURGERY: Left L4-L5 discectomy. INTERVAL HISTORY: Ms. Alejandre returns today approximately six weeks out from surgery. She continues to do well. I had her return today for a wound check as she had an area of superficial dehiscence in the cranial aspect of the wound. She notes that she has had no fevers, chills, or wound drainage. Her left lower extremity pain and back pain have completely resolved. She does not need any pain medication. I did give her a two-week course of Keflex that she completed about a week ago. She is pleased with how she is doing. PHYSICAL EXAMINATION: General: The patient is comfortable, in no acute distress. Back: The area of superficial dehiscence is smaller. The cranial 8 to 10 mm of the wound still does not have the skin edges completely approximated, though there is a solid base of granulation tissue at this level. There is no drainage or surrounding erythema. Neurologic exam: She has 5/5 strength in all lower extremity motor groups. She has mild decreased sensation at dorsal lower foot. ASSESSMENT/PLAN: Ms. Alejandre is about six weeks out from her discectomy. She did have some superficial dehiscence of the wound, though this is now moving in the right direction. She had no signs or symptoms of infection. I offered to follow up with her in about six weeks or so to see how she is doing, though she lives a ways away and she is comfortable just having her mother check on it. I made clear if she were to have any fevers, chills, or wound drainage or if the wound was to open up that we would want to see her back immediately. documented in this encounter Plan of Treatment Not on file documented as of this encounter Visit Diagnoses Diagnosis HNP (herniated nucleus pulposus), lumbar- Primary Displacement of lumbar intervertebral disc without myelopathy documented in this encounter Care Teams Director Franchise Sales Relationship Specialty Start Date End Date Stefanie Joy APRN [id number] [place] [address] PCP - General 05/08/13 11/26/16 documented as of this encounter
--- OUTSIDE RECORDS SUMMARY | 2024-05-07 02:55 | XMS_ITS | Encounter Summary ---
Author Organization [facility] Address [facility] [place] [address] Care Team Providers Care Manager Field Service Name Role Phone Brittany Muhammad DO Primary Care Provider +1- [phone] Encounter Details Date Type Department Care Team (Late st Contact Info) Description 02/12/2020 Orders [place] [address] Kenia Khanna MD [facility] [place] [address] Social History Tobacco Use Types Packs/Day Years [...] on filedocumented in this encounter Care Teams Manager Field Service Relationship Specialty Start Date End Date Brittany Muhammad DO [address] [place], [place] [address] PCP - General Family Medicine 01/23/19 documented as of this encounter
--- OUTSIDE RECORDS SUMMARY | 2024-05-07 02:56 | XMS_ITS | Encounter Summary ---
[place] [address] Care Team Providers Care Day Care Aide Name Role Phone Joy, Stefaniejs Ramos APRN Primary Care Provider +1- [phone] Reason for Visit * Reason Onset Date Comments Pre Procedure Call 09/04/2013 Encounter Details Date Type Department Care Team (Late st Contact Info) Description 09/04/2013 Telephone [place] [id number] Sandra Bran LPN Pre Procedure Call Social History Tobacco Use Types Packs/Day Years [...] encounter Miscellaneous Notes * Telephone Encounter - Viktor Tyler RN - 09/05/2013 2:20 PM EST Patient returned call she was advised of need to hold anticoagulants, NSAIDs, ASA products, and FishOil for 7-10 days preoperatively. Reviewed medication list. Patient is not noted to be on any anticoagulants. Patient agreed to hold Naproxen as instructed. Medication list updated. * Telephone Encounter - Sandra Rutledge LPN - 09/04/2013 2:10 PM EST Called and left VM message for pt to call [place] nursing office at his first opportunity; advising thatthe need for a return call was time sensitive. [place] Nsg office hrs and phone number provided. Upon return call need to review med list with pt and advise pt of need to hold any anticoagulants, asa, NSAIDS, or fish oil preoperatively for 7-10 days. Awaiting return call. documented in this encounter Plan of Treatment Not on file documented as of this encounter Visit Diagnoses Not on filedocumented in this encounter Care Teams Day Care Aide Relationship Specialty Start Date End Date Stefanie Joy APRN [phone] [place] [address] PCP - General 05/08/13 11/26/16 documented as of this encounter
--- OUTSIDE RECORDS SUMMARY | 2024-05-07 02:56 | XMS_ITS | Encounter Summary ---
Author Organization [facility] Address [facility] Prashant hernández[place] [address] Care Team Providers Care Ui Application Developer Name Role Phone Diallo Huang APRN Primary Care Provider [phone] Reason for Visit * Reason Comments Chronic Kidney Disease Encounter Details Date Type Department Care Team (Latest Contact Info) Description 03/03/2013 2:30 PM EDT Office Visit Nephrology [place] [address] Alex Marr MD [facility] [place] [address] CKD (chronic kidney disease) (Primary Dx); Renal insufficiency; H/O nephrolithotomy with removal of calculi; Right renal mass; Elevated serum creatinine; Elevated blood pressure Discharge Disposition: Home Social History Tobacco Use Types Packs/Day Years Used Date Smoking Tobacco: Former Comments:quit 2005 Sex and Gender Information Value Date Recorded Sex Assigned at Female 02/16/2021 7:51 PM EDT Gender Identity Female 02/16/2021 7:51 PM EDT Sexual Orientation Straight 02/16/2021 7: 51 PM EDT documented as of this encounter Last Filed Vital Signs Vital Sign Reading Time Taken Comments Blood Pressure 136/91 03/03/2013 2:22 PM EDT Pulse 67 03/03/2013 2:22 PM EDT Temperature - - Respiratory Rate - - Oxygen Saturation - - Inhaled Oxygen Concentration - - Weight 109.3 kg (241 lb) 03/03/2013 2:22 PM EDT Height - - Body Mass Index 43.13 08/26/2012 10:02 AM EST documented in this encounter Progress Notes * Alex Marr MD - 03/03/2013 2:36 PM EDT Hypertension/Nephrology Consultation Genie Amaya Dolly [id number] 1975 ID: [id number] y.o. old female seen at the request of Dr. Diallo Huang for evaluation of an abnormal serumcreatinine level. Past Medical History: Depression - has been treated in past with SSRI family meds. Never on lithium. Chart mentions bipolar disorder but patient is unaware of any prior bouts of leslee. Psoriasis involving hands Cholecystectomy for gall stones about 20 years ago CARLOS - just started cpap about 6 weeks ago. She has not noted any real change in her well being. Wasinvestigated for poor sleep and lack of rest and mild erythrocytosis. Hypothyroidism - just started synthroid 2 weeks ago Vit D insuf - treated with supplement for 2 cycles since Oct 2012 Nephrolithiasis (see below) History of Present Illness: No h/o high bp, or dm. There is a h/o kidney stones, most recently about 9 years ago. She passed this one spontaneously. About 10-12 years, in [place], she underwent endoscopic removal of a stone. Before that she recalls an episode of colic and believes she passed a stone spontaneously. She does not know anything as to the nature of the stones. There is no h/o UTIs as adult or child. No h/o . There is no h/o sig use of OTC pain meds. Medications: insulin detemir (LEVEMIR) 100 unit/mL injection; levothyroxine (SYNTHROID) 50 mcg tablet; zolpidem (AMBIEN) 5 mg tablet; triamcinolone (KENALOG) 0.1 % lotion; fluocinonide (LIDEX) 0.05 % ointment; multivitamin (THERAGRAN) tablet Does not take insulin Allergies / ADRs: No Known Allergies Family History: Mom alive at 59, good health as far as she knows Dad alive at 63; has had kidney stones 2 sisters, 1 brother, all younger. All in good healthy. Social History: Born and raised in [facility]. 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 Quit tobacco 5-6 years ago (1ppd for ~10years). No sig etoh use. No drug use. History Substance Use Topics ??? Smoking status: Former Smoker ??? Smokeless tobacco: Not on file Comment: quit 2005 ??? Alcohol Use: Not on file Review of Systems: ROS: System Abnormalities Constitutional Wt down about ten lbs over few months, unintentional, no f/c/s Eye Vision ok; no unusual headaches ENT No sinus problems, nosebleeds or oral ulcerations CV No cp, no orthopnea, no pnd. Occasional mild leg swelling of feet in past. Resp No cough, asthma or sob GI No n/v/c/d. Periods are regular, no straining, occasional nocturia 1-2 x per night. Had gross hematuria withkidney stones but may have also had a bout a few months ago that she did not track down Skin Psoriasis scalp and hands Allergy No environmental allergies Endocrine No h/o dm. On thyroid replacement since two weeks ago. Recently had vit D insuf treated. Neurologic No paresthesias or wkns Musculoskeletal Had some aching in joints and which has improved with the vit D courses. No bouts of synovitis or gout. Lymph no swellings or lumps. See heme eval for high rbc count. Psych Depression, not currently on rx. Physical Examination: Filed Vitals: 03/03/13 1422 BP: 136/91 Pulse: 67 General: Mildly anxious, overwt, nad Head: ncat, some scalp psoriasis Eye: Shayne, sclera and conj normal and eomi ENT: Dentition and mucosa normal Neck: jvp normal, no masses; carotids normal CV: rrr with tr/6 zurdo usb Breast: Not examined Resp: Clear Back: no cvat Abd: Obese, soft and nt, nabs, no palp masses : Not examined Lymph: None palpable Ext: No pretibial edema; pulses are normal, no definite nail pitting. No synovitis or dactylitis Skin: Mild scaling and irritation interdigital spaces hands; bruise left sheth and left thigh Neuro: Normal motor, reflexes, and vib and light touch sensation Psych: Affect is mildly anxious Office UA: 1.020, 5 dip negative. Sediment contains too numerous to count squamous epithelial cellsand no RBCs, casts, or other dx findings Outside US report dated 02-25-13: hyperechoic 2cm mass upper/mid pole of right kidney, suggests possible angiomyolipoma. RK 10cm, LK 10cm, ?mild cortical thinning, no stones no hydro, pvr only 27 cc. Results for DOLLY, GENIE Amaya ( ) as of 03/04/2013 08:01 Ref. Range 03/03/2013 15:15 03/03/2013 15:48 WBC Latest Range: 4.0-10.0 x10(3)/mcL 9.8 RBC Latest Range: 3.93-5.22 x10(6)/mcL 6.04 (H) Hemoglobin Latest Range: 11.2-15.7 gm/dL 16.6 (H) Hematocrit Latest Range: 34.0-45.0 % 49.6 (H) MCV Latest Range: 79.0-94.0 fL 82.1 MCH Latest Range: 26.6-32.2 pg 27.5 MCHC Latest Range: 32.0-36.5 gm/dL 33.5 RDWSD Latest Range: 35.0-46.0 fL 41.1 RDWCV Latest Range: 10.9-14.4 % 13.9 Platelets Latest Range: 145-370 x10(3)/mcL 243 MPV Latest Range: 9.0-12.0 fL 9.9 Neutr Abs (ANC) Latest Range: 1.50-6.30 x10(3)/mcL 6.36 (H) Neutrophils % Latest Range: 34.0-71.0 % 64.6 Immature Gran % Latest Range: 0.00-0.66 % 0.10 Lymphocytes % Latest Range: 19.0-53.0 % 25.7 Monocytes % Latest Range: 4.0-13.0 % 9.6 Eosinophils % Latest Range: 0.0-7.0 % 0.0 Basophils % Latest Range: 0.0-2.0 % 0.0 Monse Gran Abs Latest Range: 0.00-0.05 x10(3)/mcL 0.01 Lymphocytes Abs Latest Range: 1.0-3.6 x10(3)/mcL 2.5 Monocyte Abs Latest Range: 0.2-1.0 x10(3)/mcL 0.9 Eosinophils Abs Latest Range: 0.0-0.5 x10(3)/mcL 0.0 Basophils Abs Latest Range: 0.0-0.2 x10(3)/mcL 0.0 Sodium Latest Range: 135-145 mmol/L 139 Potassium Latest Range: 3.5-5.0 mmol/L 4.4 Chloride Latest Range: 98-107 mmol/L 103 CO2 Latest Range: 22-31 mmol/L 25 Anion Gap Latest Range: 5-15 mmol/L 11 BUN Latest Range: 8-18 mg/dL 19 (H) Creatinine Latest Range: 0.70-1.20 mg/dL 1.23 (H) Estimated GFR Latest Range: >=60 49 (L) Glucose Lvl Latest Range: 60-199 mg/dL 85 Calcium Latest Range: 8.5-10.5 mg/dL 9.8 Phosphorus Latest Range: 2.5-4.5 mg/dL 2.9 Uric Acid Latest Range: 2.5-6.5 mg/dL 6.6 (H) Albumin Latest Range: 3.2-5.2 gm/dL 4.2 CRP High Sens No range found 5.6 PTH Latest Range: 15-65 pg/mL 37 U Creatinine No range found 199 U Ran Malb Calc No range found <2 U Ran Malb Conc No range found <3.0 A/P: 37 yo woman with a history of depression, psoriasis, and recent dx of CARLOS presents with mildlyelevated serum creatinine and bland urine sediment and no albuminuria. She has no h/o htn or DM, chronic nsaids/otc analgesics, or urinary infections. She does have a h/o symptomatic stone diseases but no events for years. The US, by report, shows a possible angiomyolipoma but no signs of stones orhydronephrosis. The possible angiomyolipoma should be confirmed with a CT scan (can be ordered as rule out/in angiomyolipoma so that a noncontrast scan is performed first; if this is diagnostic of fat containing mass, no further w/u is needed; if the noncontrast scan is nondx, then contrast is given to see if any parts enhance; discussed with [facility] radiology). Psoriasis can be associated with IgA nephropathy, but this would present with hematuria. Obesity can be associated with focal segment glomerulosclerosis, but the presentation of this disorder is proteinuria. Recurrent or persistent kidney stones can cause chronic interstitial inflammation and renalimpairment but the patient has not had sx for some years and there were no stones seen on US (about 80% sensitive). There is no family h/o renal disease so conditions of hereditary nephritis are unlikely and there was no evidence of polycystic disease. Considerations for the elevation of creatinine without evidence of obstruction or glomerular involvement include interstitial nephritis (no ultra suspicious meds), hemodynamic cause (no obvious impairment in circulation), or some renovascular disorder (SANTIAGO can have a bland sediment but the patientshave fevers/pains/etc; renal artery stenosis can cause this picture but patients usually have overthtn). Recurrent bouts of severe volume depletion and or exposure to chronic analgesics can produce CRI with little abnormality in the urine but there is no hx to support this. It is also possible that the patient simply has a creatinine on the end of the normal spectrum and really has a normal GFR. We will start with a 24 hour urine for crcl and total protein to make sure we are not missing a nonalbumin proteinuria. As she has a h/o stone disease, we will take advantage of the 24 hour urine to also assess her for metabolic risk factors for recurrent stone disease. The ultimate investigation for unexplained is a renal biopsy but this would be reserved clear progression or emergence of activity in the sediment. I do note that the CRP is mildly elevated and this should be monitored again. If it is rising and activity of psoriasis can't account for it, renal biopsy would be a consideration. The bp today is elevated. I asked her to have it monitored regularly so that we can go over her lognext visit. Htn nephrosclerosis would only occur after years of high blood pressure or severe elevation. Today's bp was only mildly elevated and may have reflected a white coat situation. I did not order the CT but would be pleased to do if Dr. Huang and the patient would like it to be done here. I will see her back after the 24 hour urine. I am mailing her a lab slip in this regard. Thank you for allowing me to participate in the care of this interesting patient. Please CC to: DIALLO HUANG APRN [address] [place] [address] documented in this encounter Plan of Treatment Not on file documented as of this encounter Procedures Procedure Name Priority Date/Time Associated Diagnosis Comments PTH Routine 03/03/2013 3:48 PM EDT CKD (chronic kidney disease) Renal insufficiency H/O nephrolithotomy with removal of calculi DIFFERENTIAL, AUTOMATED Routine 03/03/2013 3:48 PM EDT CBC (WITH DIFF) Routine 03/03/2013 3:48 PM EDT CKD (chronic kidney disease) CRP, CARDIAC RISK (HS CRP) Routine 03/03/2013 3:48 PM EDT CKD (chronic kidney disease) Renal insufficiency URIC ACID Routine 03/03/2013 3:48 PM EDT CKD (chronic kidney disease) Renal insufficiency H/O nephrolithotomy with removal of calculi PHOSPHORUS Routine 03/03/2013 3:48 PM EDT CKD (chronic kidney disease) ALBUMIN LEVEL Routine 03/03/2013 3:48 PM EDT CKD (chronic kidney disease) BASIC METABOLIC PANEL Routine 03/03/2013 3:48 PM EDT CKD (chronic kidney disease) U ALBUMIN/CRE RATIO Routine 03/03/2013 3:15 PM EDT CKD (chronic kidney disease) documented in this encounter Results * (ABNORMAL) Differential, Automated (03/03/2013 3:48 PM EDT) Neutrophil % 64.6 34.0 - 71.0 % CERNER MILLENNIUM Neutrophil Absolute 6.36(H) 1.50 - 6.30 x10(3)/mc L CERNER MILLENNIUM Lymph % 25.7 19.0 - 53.0 % CERNER MILLENNIUM Lymphocytes Abs 2.5 1.0 - 3.6 x10(3)/mc L CERNER MILLENNIUM Monocyte % 9.6 4.0 - 13.0 % CERNER MILLENNIUM Monocyte Abs 0.9 0.2 - 1.0 x10(3)/mc L CERNER MILLENNIUM Eos % 0.0 0.0 - 7.0 % CERNER MILLENNIUM Eosinophils Abs 0.0 0.0 - 0.5 x10(3)/mc L CERNER MILLENNIUM Basophil % 0.0 0.0 - 2.0 % CERNER MILLENNIUM Baso Absolute 0.0 0.0 - 0.2 x10(3)/mc L CERNER MILLENNIUM Immature Gran % 0.10 0.00 - 0.66 % CERNER MILLENNIUM Comment: Immature granulocytes(IG's)percentage and absolute count will include metamyelocytes, myelocytes, and promyelocytes. Blood smears from CBCs yielding IG's will be scanned manually for concordance. If this scan disagrees with the automated IG or if promyelocytes are noted, a manual differential will be performed. Immature Gran Absolute 0.01 0.00 - 0.05 x10(3)/mc L CERNER MILLENNIUM Blood specimen (specimen) 03/03/2013 3:48 PM EDT 03/03/2013 3:53 PM EDT Alex Marr MD HEMATOLOGY ORDERABLE S [facility] * High Sensitivity CRP (03/03/2013 3:48 PM EDT) C-Reactive Protein High Sensitivity 5.6 mg/L CERNER MILLENNIUM Comment: Interpretations: 1) For cardiac risk assessment, two values (fasting or nonfasting sample acceptable) taken at least 2 weeks apart, should be averaged to provide a more reliable estimate of marker level. ??This laboratory uses the recommendations from the AHA/CDC Scientific Statement for interpretations of future risks of cardiovascular events: ? <1.0 mg/L: low risk 1.0 - 3.0 mg/L: moderate risk >3.0 mg/L: high risk groups for future cardiovascular events 2) The general reference range of apparently healthy individuals using this test is <5.0 mg/L (derived from the test package insert) A few words of caution: For cardiac assessment, when a value >10 mg/L is encountered, there should be a search for an acute inflammatory condition or infection (in patients with acute inflammation, the concentration can increase to >500 mg/L). ??The >10 mg/L should be discarded if such a situation exists, since the risk for coronary heart disease cannot be provided, and a repeat specimen, taken at least two weeks after resolution of the acute inflammatory condition, may allow for appraisal of coronary risk information. Please note that significantly decreased CRP values may be obtained from samples taken from patients who have been treated with carboxypenicillins. References: 1. Cassandra KILLIAN et. al. ??AHA/CDC Scientific Statement: Markers of Inflammation and Cardiovascular Disease. ??Circulation 2003; 107:499-511 2. Ridker PM. ??Clinical applications of C-reactive protein for cardiovascular disease detection and prevention. ??Circulation 2003; 107:363-369 Blood specimen (specimen) 03/03/2013 3:48 PM EDT 03/03/2013 3:53 PM EDT Narrative Resulting Agency Comment Spec In Lab Alex Marr MD CHEMISTRY ORDERABLES Performing Organization Address [facility] de Phone Number PHAM LOUIEIUM * (ABNORMAL) Uric acid (03/03/2013 3:48 PM EDT) Uric Acid 6.6(H) 2.5 - 6.5 mg/dL PHAM LOUIEIUM Blood specimen (specimen) 03/03/2013 3:48 PM EDT 03/03/2013 3:53 PM EDT Narrative Resulting Agency Comment Spec In Lab Alex Marr MD CHEMISTRY ORDERABLES Performing Organization Address [facility] de Phone Number PHAM LOUIEIUM * Albumin Level (03/03/2013 3:48 PM EDT) Albumin 4.2 3.2 - 5.2 gm/dL PHAM LOUIEIUM Blood specimen (specimen) 03/03/2013 3:48 PM EDT 03/03/2013 3:53 PM EDT Narrative Resulting Agency Comment Spec In Lab Alex Marr MD CHEMISTRY ORDERABLES Performing Organization Address [facility] de Phone Number PHAM LOUIEIUM * PTH (03/03/2013 3:48 PM EDT) Parathyroid Hormone 37 15 - 65 pg/mL CERNER MILLENNIUM Blood specimen (specimen) 03/03/2013 3:48 PM EDT 03/03/2013 3:52 PM EDT Narrative Resulting Agency Comment Spec In Lab Alex Marr MD CHEMISTRY ORDERABLES Performing Organization Address City/[facility]/ZIP Co de Phone Number CERNER MILLENNIUM * (ABNORMAL) CBC (with Diff) (03/03/2013 3:48 PM EDT) White Blood Cell 9.8 4.0 - 10.0 x10(3)/mc L CERNER MILLENNIUM Red Blood Cell 6.04(H) 3.93 - 5.22 x10(6)/mc L CERNER MILLENNIUM Hemoglobin 16.6(H) 11.2 - 15.7 gm/dL CERNER MILLENNIUM Hematocrit 49.6(H) 34.0 - 45.0 % CERNER MILLENNIUM Mean Cell Volume 82.1 79.0 - 94.0 fL CERNER MILLENNIUM Mean Cell Hemoglobin 27.5 26.6 - 32.2 pg CERNER MILLENNIUM Mean Cell Hemoglobin Concentration 33.5 32.0 - 36.5 gm/dL CERNER MILLENNIUM Platelet 243 145 - 370 x10(3)/mc L CERNER MILLENNIUM RDW Standard Deviation 41.1 35.0 - 46.0 fL CERNER MILLENNIUM RDW coefficient of variation 13.9 10.9 - 14.4 % CERNER MILLENNIUM Mean Platelet Volume 9.9 9.0 - 12.0 fL CERNER MILLENNIUM Blood specimen (specimen) 03/03/2013 3:48 PM EDT 03/03/2013 3:53 PM EDT Narrative Resulting Agency Comment Spec In Lab Alex Marr MD HEMATOLOGY ORDERABLE S CERLAUREL MILLENNIUM * Phosphorus (03/03/2013 3:48 PM EDT) Phosphorus 2.9 2.5 - 4.5 mg/dL CERNER MILLENNIUM Blood specimen (specimen) 03/03/2013 3:48 PM EDT 03/03/2013 3:53 PM EDT Narrative Resulting Agency Comment Spec In Lab Alex Marr MD CHEMISTRY ORDERABLES CERNER MILLENNIUM * (ABNORMAL) Basic Metabolic Panel (non-fasting) (03/03/2013 3:48 PM EDT) Glucose 85 60 - 199 mg/dL CERNER MILLENNIUM Comment:Diabetes: >=200 mg/d L plus symptoms Blood Urea Nitrogen 19(H) 8 - 18 mg/dL CERNER MILLENNIUM Creatinine 1.23(H) 0.70 - 1.20 mg/dL CERNER MILLENNIUM Comment: Please note that the pediatric reference intervals supplied above were not validated at [facility]. Results from pediatric patients should be interpreted in conjunction to the patient's age, height and muscle mass. Sodium 139 135 - 145 mmol/L CERNER MILLENNIUM Potassium 4.4 3.5 - 5.0 mmol/L CERNER MILLENNIUM Comment: Please note: ??Patients with WBC >100,000 may have falsely elevated Potassium levels. ??For accurate Potassium quantification in these patients send serum separator tube (gold top) for subsequent determinations. ??Contact the Clinical Chemistry Laboratory if there are any questions. Chloride 103 98 - 107 mmol/L CERNER MILLENNIUM Carbon Dioxide 25 22 - 31 mmol/L CERNER MILLENNIUM Anion Gap 11 5 - 15 mmol/L CERNER MILLENNIUM Calcium 9.8 8.5 - 10.5 mg/dL CERNER MILLENNIUM Est Glomerular Filtration Rate 49(L) >=60 CERNER MILLENNIUM Comment: This estimated GFR (eGFR) value was calculated using the MDRD equation which has been validated on patients between the ages of 18 and 70. The MDRD should not be used to assess kidney function in patients < 18 years of age or in patients with extremes of body mass, or in patients with acute kidney failure. This value should be multiplied by 1.2 for patients. For further information please copy and paste the following links into your internet browser. http://www.nkdep.nih.gov/lab-evaluation.shtml http://www.kidney.org/professionals/ Blood specimen (specimen) 03/03/2013 3:48 PM EDT 03/03/2013 3:53 PM EDT Narrative Resulting Agency Comment Spec In Lab Alex Marr MD CHEMISTRY ORDERABLES Performing Organization Address [facility] Phone Number [facility] TamagoENNIUM * Microalbumin, urine, random (03/03/2013 3:15 PM EDT) Creatinine, Urine 199 mg/dL CE RNER MILLENNIUM Albumin, Urine <3.0 mg/L CERNE R MILLENNIUM Albumin / Creatinin Ratio, Urine <2 mcg/mg Cr CERNER MILLENNIUM Comment: Reference Range* Random collection (mcg/mg creatinine) Normal ?<30 Microalbuminuria ?? 30 - 300 Clinical Albuminuria ?? >300 *[place] [employer]. Diabetic Nephropathy. Diabetes Care 1997;(Suppl 1):S24-S27 Exercise within 24 hour, infection, fever, CHF, marked hyperglycemia, and marked hypertension may elevate urinary albumin excretion over baseline values. Urine specimen (specimen) 03/03/2013 3:15 PM EDT 03/03/2013 3:28 PM EDT Narrative Resulting Agency Comment Spec In Lab Alex Marr MD URINE ORDERABLES Performing Organization Address [facility] Phone Number [facility] [employer]ipendoIUM documented in this encounter Visit Diagnoses Diagnosis CKD (chronic kidney disease)- Primary Chronic kidney disease, unspecified Renal insufficiency Unspecified disorder of kidney and ureter H/O nephrolithotomy with removal of calculi Personal history of surgery to other organs Right renal mass Unspecified disorder of kidney and ureter Elevated serum creatinine Other nonspecific findings on examination of blood Elevated blood pressure Elevated blood pressure reading without diagnosis of hypertension documented in this encounter Care Teams Ui Application Developer Relationship Specialty Start Date End Date Diallo Huang APRN PCP - General 08/26/12 05/07/13 documented as of this encounter
--- OUTSIDE RECORDS SUMMARY | 2024-05-07 02:56 | XMS_ITS | Encounter Summary ---
Author Organization [facility] Address [facility] [place] [address] Care Team Providers Care Windows 7 Deployment Lead Name Role Phone Marly Joyjs Ramos APRN Primary Care Provider [phone]- [phone] Reason for Visit * Reason Comments Back Pain Left Leg Pain Encounter Details Date Type Department Care Team (Late st Contact Info) Description 08/14/2013 11:00 AM EST Office Visit [place] [address] Brock Trujillo MD [facility] [place] [address] HNP (herniated nucleus pulposus), lumbar (Primary Dx); Acute leg pain Discharge Disposition: Home Social History Tobacco Use [...] - - Weight 102.1 kg (225 lb) 08/14/2013 11:03 AM EST Height 157.5 cm (5' 2) 08/14/2013 11:03 AM EST Body Mass Index 41.15 08/14/2013 11:03 AM EST documented in this encounter Progress Notes * Brock Trujillo MD - 08/14/2013 11:30 AM EST INTERVAL HISTORY: Ms. Alejandre returns to see me. To review, she is a 38-year-old female who developed five months of left lower extremity pain in L5 distribution. She has an MRI showing a left L4-5 disk herniation. I had her undergo a left L4-5 transforaminal epidural steroid injection that was done on 07/22/2013, and this gave her only about three hours of improvement of the leg pain. She is currently taking naproxen and tramadol for pain. She feels as though she has exhausted nonoperative treatment and wants to proceed with surgery. Plain films of her MRI reviewed. 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 There does not appear to be any rotational component to this. On the lateral view, she has loss of lumbar lordosis, but no spondylolisthesis. MRI of the lumbar spine from 07/08/2013, is reviewed. This demonstrates a focal disk protrusion located paracentrally and posterolaterally on the left at L4-5. It appears to be compressing the traversing L5 root in the lateral recess. ASSESSMENT/PLAN: Ms. Alejandre is about five months of left L5 radiculopathy that has failed to improve with extensive nonoperative treatment. She wants to undergo a left L4-5 discectomy. She has seen the shared decision making video. The planned surgery was demonstrated on the spinal model. The typical recovery time was reviewed. Consent was obtained. Risks were documented on the consent form. She will go to scheduling to set up a date for surgery. She will undergo a preadmission testing. She will need history and physical from her primary care doctor within a month of surgery. I told her to stop anti-inflammatories and aspirin at least a week before surgery. documented in this encounter Plan of Treatment Not on file documented as of this encounter Procedures Procedure Name Priority Date/Time Associated Diagnosis Comments LAMINOTOMY, DECOMPRESSION, FORAMINOTOMY, LUMBAR Routine 08/14/2013 11:28 AM EST HNP (herniated nucleus pulposus), lumbar [...] post discectomy at L4-L5. ??There are 5 [id number] lumbar type vertebral bodies. ??Again seen is [...] status post discectomy at L4-L5. There are [id number] lumbar type vertebral bodies. Again seen is a mild leftward curvature ofthe lumbar spine. Facet arthropathy is again noted in the lower lumbar spine.No interval change in alignment. Impression Status post discectomy at L4-L5 with no change in alignment. Film and interpretation reviewed by the attending Brock Trujillo MD IMG DX ORDERABLES * Prothrombin Time (08/14/2013 12:40 PM EST) Prothrombin Time 13.7 12.0 - 15.0 sec PHAM Multispan Comment: [facility] Transfusion Committee Guidelines: INR less than 2.0, PTT less than OR equal to 43.5 seconds, or Fibrinogen greater than or equal to 100 mg/dl indicate adequate procoagulant activity for hemostasis in patients without underlying bleeding disorders. International Normalization Ratio 1.0 0.9 - 1.1 [facility] MILLENNIUM Blood specimen (specimen) 08/14/2013 12:40 PM EST 08/14/2013 1:11 PM EST Narrative Resulting Agency Comment Spec In Lab Brock Trujillo MD HEMATOLOGY ORDERABLE S CERNER MILLENNIUM * (ABNORMAL) Basic Metabolic Panel (non-fasting) (08/14/2013 12:40 PM EST) Glucose 104 60 - 199 mg/dL CERNER MILLENNIUM Comment:Diabetes: >=200 mg/d L plus symptoms Blood Urea Nitrogen 17 8 - 18 mg/dL CERNER MILLENNIUM Creatinine 1.21(H) 0.70 - 1.20 mg/dL CERNER MILLENNIUM Comment: Please note that the pediatric reference intervals supplied above were not validated at [facility]. Results from pediatric patients should be interpreted in conjunction to the patient's age, height and muscle mass. Sodium 140 135 - 145 mmol/L CERNER MILLENNIUM Potassium 3.9 3.5 - 5.0 mmol/L CERNER MILLENNIUM Comment: Please note: ??Patients with WBC >100,000 may have falsely elevated Potassium levels. ??For accurate Potassium quantification in these patients send serum separator tube (gold top) for subsequent determinations. ??Contact the Clinical Chemistry Laboratory if there are any questions. Chloride 103 98 - 107 mmol/L CERNER MILLENNIUM Carbon Dioxide 21(L) 22 - 31 mmol/L CERNER MILLENNIUM Anion Gap 16(H) 5 - 15 mmol/L CERNER MILLENNIUM Calcium 10.4 8.5 - 10.5 mg/dL CERNER MILLENNIUM Est [...] internet browser. http://www.nkdep.nih.gov/lab-evaluation.shtml http://www.kidney.org/professionals/ Blood specimen (specimen) 08/14/2013 12:40 PM EST 08/14/2013 1:11 PM EST Narrative Resulting Agency Comment Spec In Lab Brock Trujillo MD CHEMISTRY ORDERABLES Performing Organization Address City/[facility] Co de Phone Number CERNER MILLENNIUM * (ABNORMAL) CBC (with Diff) (08/14/2013 12:40 PM EST) White Blood Cell 12.0(H) 4.0 - 10.0 x10(3)/mc L CERNER MILLENNIUM Red Blood Cell 6.09(H) 3.93 - 5.22 x10(6)/mc L CERNER MILLENNIUM Hemoglobin 17.6(H) 11.2 - 15.7 gm/dL CERNER MILLENNIUM Hematocrit 49.6(H) 34.0 - 45.0 % CERNER MILLENNIUM Mean Cell Volume 81.4 79.0 - 94.0 fL CERNER MILLENNIUM Mean Cell Hemoglobin 28.9 26.6 - 32.2 pg CERNER MILLENNIUM Mean Cell Hemoglobin Concentration 35.5 32.0 - 36.5 gm/dL CERNER MILLENNIUM Platelet 275 145 - 370 x10(3)/mc L CERNER MILLENNIUM RDW Standard Deviation 40.9 35.0 - 46.0 fL CERNER MILLENNIUM RDW coefficient of variation 14.0 10.9 - 14.4 % CERNER MILLENNIUM Mean Platelet Volume 10.0 9.0 - 12.0 fL CERNER MILLENNIUM Blood specimen (specimen) 08/14/2013 12:40 PM EST 08/14/2013 1:11 PM EST Narrative Resulting Agency Comment Spec In Lab Brock Trujillo MD HEMATOLOGY ORDERABLE S Performing Organization Address City/[facility] Co de Phone Number CERLAUREL LOUIEIUM documented in this encounter Visit Diagnoses Diagnosis HNP (herniated nucleus pulposus), lumbar- Primary Displacement of lumbar intervertebral disc without myelopathy Acute leg pain Pain in limb HNP (herniated nucleus pulposus), lumbar Displacement of lumbar intervertebral disc without myelopathy documented in this encounter Care Teams Windows 7 Deployment Lead Relationship Specialty Start Date End Date Stefanie Joy, CYBER SOFTWARE ENGINEER [phone] [place] [address] PCP - General 05/08/13 11/26/16 documented as of this encounter
--- OUTSIDE RECORDS SUMMARY | 2024-05-07 02:56 | XMS_ITS | Encounter Summary ---
Author Organization [facility] Address [facility] Prashant [place]án[place] [address] Care Team Providers Care Audit Machine Operator Name Role Phone Stefanie Joy APRN Primary Care Provider +1- [phone] Encounter Details Date Type Department Care Team (Late st Contact Info) Description 07/22/2013 Orders [place] [address] Skyla Giles MD [facility] [place] [address] Social History Tobacco Use Types Packs/Day Years [...] Associated Diagnosis Comments FILM LIBRARY STORAGE ONLY PAIN CLINIC C ARM Routine 07/22/2013 7:35 AM EDT documented in this encounter Results * Film Library-storage only pain clinic C-arm (07/22/2013 7:35 AM EDT) 07/22/2013 7:35 AM EDT Narrative RAD - 05/27/2014 4:47 PM EDT This is a non-reportable exam. Procedure Note Kehinde Falcon - 05/27/2014 This is a non-reportable exam. Sklya Giles MD IM FILM LIBRARY ORD ERABLES RAD [address] [place] [address] documented in this encounter Visit Diagnoses Not on filedocumented in this encounter Care Teams Audit Machine Operator Relationship Specialty Start Date End Date Stefanie Joy APRN [phone] [place] [address] PCP - General 05/08/13 11/26/16 documented as of this encounter
--- OUTSIDE RECORDS SUMMARY | 2024-05-07 02:56 | XMS_ITS | Encounter Summary ---
Author Organization [facility] [place] [address] Care Team Providers Care School Vocational Educator Name Role Phone Joy, Stefaniejs Ramos APRN Primary Care Provider +1- [phone] Encounter Details Date Type Department Care Team (Latest Contact Info) Description 08/14/2013 12:29 PM EST - 08/14/2013 11:59 PM [facility] [place] [address] Brock Trujillo MD [facility] [place] [address] HNP (herniated nucleus pulposus), lumbar; Acute leg pain Discharge Disposition: Home Social [...] cream Apply topically 2 times daily. 10/31/2013 traMADol (ULTRAM) 50 mg tablet Take 50 mg by mouth 3 times daily. 09/17/2013 levothyroxine (SYNTHROID) 75 mcg tabletIndications:Susan l insufficiency,History of nephrolithiasis,Leg cramps Take 75 mcg by mouth daily. 01/29/2014 naproxen (NAPROSYN) 250 mg tabletIndications:Susan l insufficiency,History of nephrolithiasis,Leg cramps Take 500 mg by mouth 2 times daily (with meals). 10/31/2013 zolpidem (AMBIEN) 5 mg tablet Take 10 mg by mouth nightly as needed. 09/17/2013 multivitamin (THERAGRAN) tablet Take 1 tablet by mouth daily. 03/11/2020 documented as of this encounter Plan of Treatment Not on file documented as of this encounter Procedures Procedure Name Priority Date/Time Associated Diagnosis Comments TYPE AND SCREEN, SDP (FUTURE SURGERY, [facility] SAME DAY PROGRAM ONLY) Routine 08/14/2013 12:41 PM EST HNP (herniated nucleus pulposus), lumbar ABO/RH TYPING Routine 08/14/2013 12:41 PM EST HNP (herniated nucleus pulposus), lumbar ANTIBODY SCREEN Routine 08/14/2013 12:41 PM EST HNP (herniated nucleus pulposus), lumbar DIFFERENTIAL, AUTOMATED Routine 08/14/2013 12:40 PM EST PROTHROMBIN TIME Routine 08/14/2013 12:4 0 PM EST Acute leg pain HNP (herniated nucleus pulposus), lumbar CBC (WITH DIFF) Routine 08/14/2013 12:40 PM EST HNP (herniated nucleus pulposus), lumbar BASIC METABOLIC PANEL Routine 08/14/2013 12:40 PM EST HNP (herniated nucleus pulposus), lumbar documented in this encounter Results * Antibody screen (08/14/2013 12:41 PM EST) [facility] Ab Screen Interp Negative CERNER MILLENNIUM Expires at [id number] on: [id number] CERNER MILLENNIUM Blood specimen (specimen) 08/14/2013 12:41 PM EST 08/14/2013 12:45 PM EST Narrative Resulting Agency Comment Spec In Lab Brock Trujillo MD BLOOD BANK LAB ORDER LATOSHA Performing Organization Address City/[facility]/ZIP Co de Phone Number PHAM PATENNIUM * ABO/Rh Typing (08/14/2013 12:41 PM EST) ABORH Type O Pos CERNER MILLENNIUM Blood specimen (specimen) 08/14/2013 12:41 PM EST 08/14/2013 12:45 PM EST Narrative Resulting Agency Comment Spec In Lab Brock Trujillo MD BLOOD BANK LAB ORDER LATOSHA Performing Organization Address City/[facility] Co de Phone Number PHAM PATENNIUM * (ABNORMAL) Differential, Automated (08/14/2013 12:40 PM EST) Neutrophil % 75.0(H) 34.0 - 71.0 % CERNER MILLENNIUM Neutrophil Absolute 9.02(H) 1.50 - 6.30 x10(3)/mc L CERNER MILLENNIUM Lymph % 17.1(L) 19.0 - 53.0 % CERNER MILLENNIUM Lymphocytes Abs 2.1 1.0 - 3.6 x10(3)/mc L CERNER MILLENNIUM Monocyte % 7.6 4.0 - 13.0 % CERNER MILLENNIUM Monocyte Abs 0.9 0.2 - 1.0 x10(3)/mc L CERNER MILLENNIUM Eos % 0.0 0.0 - 7.0 % CERNER MILLENNIUM Eosinophils Abs 0.0 0.0 - 0.5 x10(3)/mc L CERNER MILLENNIUM Basophil % 0.1 0.0 - 2.0 % CERNER MILLENNIUM Baso Absolute 0.0 0.0 - 0.2 x10(3)/mc L CERNER MILLENNIUM Immature Gran % 0.20 0.00 - 0.66 % CERNER MILLENNIUM Comment: Immature granulocytes(IG's)percentage and absolute count will include metamyelocytes, myelocytes, and promyelocytes. Blood smears from CBCs yielding IG's will be scanned manually for concordance. If this scan disagrees with the automated IG or if promyelocytes are noted, a manual differential will be performed. Immature Gran Absolute 0.03 0.00 - 0.05 x10(3)/mc L CERNER MILLENNIUM Blood specimen (specimen) 08/14/2013 12:40 PM EST 08/14/2013 1:11 PM EST Brock Trujillo MD HEMATOLOGY ORDERABLE S Performing Organization Address [facility] Phone Number [facility] [employer] * Prothrombin Time (08/14/2013 12:40 PM EST) Prothrombin Time 13.7 12.0 - 15.0 sec CERNER MILLENNIUM Comment: [facility] Transfusion Committee Guidelines: INR less than 2.0, PTT less than OR equal to 43.5 seconds, or Fibrinogen greater than or equal to 100 mg/dl indicate adequate procoagulant activity for hemostasis in patients without underlying bleeding disorders. International Normalization Ratio 1.0 0.9 - 1.1 [facility] [employer]ENNIUM Blood specimen (specimen) 08/14/2013 12:40 PM EST 08/14/2013 1:11 PM EST Narrative Resulting Agency Comment Spec In Lab Brock Trujillo MD HEMATOLOGY ORDERABLE S Performing Organization Address [facility] Phone Number CERLAUREL [employer] * (ABNORMAL) Basic Metabolic Panel (non-fasting) (08/14/2013 12:40 PM EST) Glucose 104 60 - 199 mg/dL CERNER [employer] EnterprisesENNIUM Comment:Diabetes: >=200 mg/d L plus symptoms Blood Urea Nitrogen 17 8 - 18 mg/dL CERNER MILLENNIUM Creatinine 1.21(H) 0.70 - 1.20 mg/dL CERNER MILLENNIUM Comment: Please note that the pediatric reference intervals supplied above were not validated at [facility]. Results from pediatric patients should be interpreted [...] In Lab Brock Trujillo MD CHEMISTRY ORDERABLES CERLAUREL PATENNIUM * (ABNORMAL) CBC (with Diff) (08/14/2013 12:40 [...] Lab Brock Trujillo MD HEMATOLOGY ORDERABLE S [facility] documented in this encounter Visit Diagnoses Diagnosis HNP (herniated nucleus pulposus), lumbar Displacement of lumbar intervertebral disc without myelopathy Acute leg pain Pain in limb documented in this encounter Care Teams School Vocational Educator Relationship Specialty Start Date End Date Stefanie Joy APRN [phone] [place] [address] PCP - General 05/08/13 11/26/16 documented as of this encounter
--- OUTSIDE RECORDS SUMMARY | 2024-05-07 02:56 | XMS_ITS | Encounter Summary ---
Author Organization [facility] Address [facility] [place] [address] Care Team Providers Care Radio Message Router Name Role Phone Santizo, Stefaniejs Ramos APRN Primary Care Provider [phone]- [phone] Reason for Visit * Reason Comments Back Pain Encounter Details Date Type Department Care Team (Latest Contact Info) Description 07/22/2013 7:00 AM EDT Procedure [place] [address] Iza Giles MD [address] [place] [address] Iza Giles MD [facility] [place] [address] HNP (herniated nucleus pulposus), lumbar Discharge Disposition: Home Social History Tobacco Use [...] Sign Reading Time Taken Comments Blood Pressure 169/114 07/22/2013 7:54 AM EDT Pulse 95 07/22/2013 7:54 AM EDT Temperature - - Respiratory Rate 18 07/22/2013 7:54 AM EDT Oxygen Saturation 97% 07/22/2013 7:54 AM EDT Inhaled Oxygen Concentration - - Weight 102.1 kg (225 lb) 07/22/2013 7:36 AM EDT Height 160 cm (5' 3) 07/22/2013 7:36 AM EDT Body Mass Index 39.86 07/22/2013 7:36 AM EDT documented in this encounter Patient Instructions * Patient Instructions* Gale Arnold LPN - 07/22/2013 7:45 AM EDT Pain Management Center Discharge Instructions: You were seen by Dr. Iza Giles MD who performed transforaminal injection. [x] You may resume your normal activities: tomorrow. You may shower today. DO NOT tub bathe, use whirlpools, hot tubs or pool therapy for 2 days. RemoveBand-Aid(s) later today/tomorrow. Do not drive until tomorrow. Use caution walking/climbing stairs as you may be unsteady on your feet. You may use your usual medications, including pain medications, as directed, unless otherwise instructed. You may use an ice pack as needed for the first 24 hours, on for 20 minutes then off for 20 minutes. Do not apply heat today. Attempt to empty your bladder 4-6 hours after your procedure. You received the following medications: Lidocaine, Omnipaque (contrast dye) and Dexamethasone Sodium Phosphate 10 mg. During regular business hours, please phone the Pain Management Center at for appointments or with any questions or if the following or other troubling symptoms develop: 1) Prolonged dizziness or weakness (more than 1 day). 2) Localized swelling, redness or drainage at the injection site(s). 3) Temperature of 101 degrees that lasts for more than 4 hours. After 5 PM or on weekends, call and ask for Pain Clinic provider on-call. If you are unable to reach the Pain Management Center and have a complication, please call your Primary Care Provider or proceed to your local emergency department. Gale Arnold LPN Special instructions documented in this encounter Progress Notes * Gale Arnold LPN - 07/22/2013 7:37 AM EDT Pre-Procedure Screening Questions: 1. Status: No 2. 3. Patient states they have a test car driver to transport after procedure? Yes 4. Patient taking antibiotics at present? No 5. NPO per Pain Management Center protocol? No 6. 7. Patient diabetic: No __ borderline (not treated with medications) __ managed with oral medications __ managed with injected medications 8. Patient routinely taking anticoagulants ? No Date stopped Current INR Patient Vital Signs documented in Doc Flowsheets associated with this encounter. Patient Discharge Instructions were reviewed with patient and copy provided to patient. documented in this encounter Procedure Notes * Bob Mcmahon MD - 07/22/2013 7:35 AM EDTAssociated Order(s): TRANSFORAMINAL INJECTION Procedure(s): TRANSFORAMINAL INJECTION Pre-Procedure Diagnose(s): HNP (herniated nucleus pulposus), lumbar Post-Procedure Diagnose(s): HNP (herniated nucleus pulposus), lumbar Transforaminal Epidural Steroid Injection with Fluoroscopic Guidance left L4-L5 Chief Complaint: Low back and left lower extremity pain. Genie Alejandre has been referred to the Pain Management Center for Lumbar Transforaminal EpiduralSteroid Injection left L4-L5 Ms. Alejandre was interviewed and the medical record reviewed. There were no medical, pharmacologic,radiographic or other structural contraindications to attempting fluoroscopically guided epidural steroid injection. Risks and expected side effects as well as potential benefit of the procedure werereviewed with Ms. Alejandre, and her voiced concerns were addressed. The printed consent form was signed and witnessed. The risks and benefits were reviewed with the patient including but not limited to post dural puncture, headache, infection, nerve injury, allergic reaction, possible increase in symptoms over the ensuing 24 to 48 hours, paralysis. The patient appeared to understand, questions were answered and the patient agreed to proceed. Standard time-out procedure was performed. Genie Alejandre was greeted by the nurse who verified patients name and . Patient was then taken to the fluoroscopy suite. TECHNIQUE: After informed written consent was obtained the patient was placed in the prone position. The lumbar spine spine was prepped with chloraprep and draped. Sterile technique was used (gown, cap, glove, mask were worn). Vitals signs were monitored, time out was done and the left side was marked with a radioopaque marker. The skin and subcutaneous structures were anesthetized with lidocaine1% to a total volume of 5 ML at each level. Under fluoroscopic guidance, in ipsilateral oblique view, co-axial approach, 22 gauge spinal needle(s) were advanced to the base of the L-4. pedicle(s). The needle(s) were advanced to the superio-posterior aspect of the neural foramen under lateral view. Oblique and AP views were rechecked. Under AP view Omnipaque 240 1 cc's was injected while visualized with digital subtraction. There was no evidence of intravascular uptake, the epidural space was delineated. Decadron 10 mg was injected after negative aspiration, at each level, followed by lidocaine 1% 0.5-ML at each level. Outcome: The patient tolerated the procedure well and had stable vital signs. The patient was observed in the pain clinic and then discharged after having met discharge criteria to the care of a test car driver. The patient received written instructions as documented in nursing records. COMMENTS: The patient tolerated the procedure well. She will follow up in the Spine Center for continued management, and in the Pain Clinic as needed. CC: STEFANIE SANTIZO APRN @[email or web address]@ I was the attending physician supervising the fellow or resident in the above care and I was present with the resident for the entire procedure. IZA GILES MD documented in this encounter Plan of Treatment Not on file documented as of this encounter Procedures Procedure Name Priority Date/Time Associated Diagnosis Comments TRANSFORAMINAL INJECTION Routine 07/23/2013 1:19 PM EDT HNP (herniated nucleus pulposus), lumbar documented in this encounter Results * TRANSFORAMINAL INJECTION (07/23/2013 1:19 PM EDT) Narrative Iza Giles MD - 07/23/2013 1:19 PM EDT Iza Giles MD ? 07/23/2013 ??1:19 PM Transforaminal Epidural Steroid Injection with Fluoroscopic Guidance ??left L4-L5 Chief Complaint: Low back and left lower extremity pain. Genie Alejandre has been referred to the Pain Management Center for Lumbar Transforaminal Epidural Steroid Injection ??left L4-L5 Ms. Alejandre was interviewed and the medical record reviewed. ?? There were no medical, pharmacologic, radiographic or other structural contraindications to attempting fluoroscopically guided epidural steroid injection. ??Risks and expected side effects as well as potential benefit of the procedure were reviewed with Ms. Alejandre, and her voiced concerns were addressed. ??The printed consent form was signed and witnessed. The risks and benefits were reviewed with the patient including but not limited to post dural puncture, headache, infection, nerve injury, allergic reaction, possible increase in symptoms over the ensuing 24 to 48 hours, paralysis. ??The patient appeared to understand, ??questions were answered and the patient agreed to proceed. Standard time-out procedure was performed. Genie Alejandre was greeted by the nurse who verified patients name and . ??Patient was then taken to the fluoroscopy suite. TECHNIQUE: ??After informed written consent was obtained the patient was placed in the prone position. ??The ?lumbar spine ?? spine was prepped with chloraprep and draped. ??Sterile technique was used (gown, cap, glove, mask were worn). Vitals signs were monitored, time out was done and the ?? left side was marked with a radioopaque marker. ??The skin and subcutaneous structures were anesthetized with lidocaine 1% to a total volume of 5 ??ML at each level. Under fluoroscopic guidance, in ipsilateral oblique view, co-axial approach, ??22 gauge spinal needle(s) were advanced to the base of the ?? L-4. ?? pedicle(s). ??The needle(s) were advanced to the superio-posterior aspect of the neural foramen under lateral view. ??Oblique and AP views were rechecked. ?? Under AP view Omnipaque 240 ??1 cc's was injected while visualized with digital subtraction. ?? There was no evidence of intravascular uptake, the epidural space was delineated. ??Decadron ??10 ??mg was injected after negative aspiration, at each level, followed by lidocaine 1% 0.5-ML at each level. Outcome: The patient tolerated the procedure well and had stable vital signs. The patient was observed in the pain clinic and then discharged after having met discharge criteria ??to the care of a test car driver. ??The patient received written instructions as documented in nursing records. ?? COMMENTS: The patient tolerated the procedure well. She will follow up in the Spine Center for continued management, and in the Pain Clinic as needed. CC: STEFANIE SANTIZO, CAS @[email or web address]@ I was the attending physician supervising the fellow or resident in the above care and I was present with the resident for the entire procedure. IZA GILES MD Procedure Note Bob Mcmahon MD - 07/22/2013 7:35 AM EDT Transforaminal Epidural Steroid Injection with Fluoroscopic Guidance leftL4-L5 Chief Complaint: Low back and left lower extremity pain. Genie Alejandre has been referred to the Pain Management Center forLumbar Transforaminal Epidural Steroid Injection left L4-L5 Ms. Alejandre was interviewed and the medical record reviewed. There wereno medical, pharmacologic, radiographic or other structuralcontraindications to attempting fluoroscopically guided epidural steroidinjection. Risks and expected side effects as well as potential benefitof the procedure were reviewed with Ms. Alejandre, and her voiced concernswere addressed. The printed consent form was signed and witnessed. Therisks and benefits were reviewed with the patient including but notlimited to post dural puncture, headache, infection, nerve injury,allergic reaction, possible increase in symptoms over the ensuing 24 to 48hours, paralysis. The patient appeared to understand, questions wereanswered and the patient agreed to proceed. Standard time-out procedure was performed. Genie Alejandre was greeted by the nurse who verified patients name andDOB. Patient was then taken to the fluoroscopy suite. TECHNIQUE: After informed written consent was obtained the patient wasplaced in the prone position. The lumbar spine spine was prepped withchloraprep and draped. Sterile technique was used (gown, cap, glove, maskwere worn). Vitals signs were monitored, time out was done and the leftside was marked with a radioopaque marker. The skin and subcutaneousstructures were anesthetized with lidocaine 1% to a total volume of 5 MLat each level. Under fluoroscopic guidance, in ipsilateral oblique view, co-axialapproach, 22 gauge spinal needle(s) were advanced to the base of theL-4. pedicle(s). The needle(s) were advanced to the superio-posterioraspect of the neural foramen under lateral view. Oblique and AP viewswere rechecked. Under AP view Omnipaque 240 1 cc's was injected whilevisualized with digital subtraction. There was no evidence ofintravascular uptake, the epidural space was delineated. Decadron 10 mgwas injected after negative aspiration, at each level, followed bylidocaine 1% 0.5-ML at each level. Outcome: The patient tolerated the procedure well and had stable vitalsigns. The patient was observed in the pain clinic and then dischargedafter having met discharge criteria to the care of a test car driver. The patientreceived written instructions as documented in nursing records. COMMENTS: The patient tolerated the procedure well. She will follow up int Spine Center for continued management, and in the Pain Clinic asneeded. CC: STEFANIE SANTIZO APRN @[email or web address]@ I was the attending physician supervising the fellow or resident in [facility] and I was present with the resident for the entire procedure.IZA GILES MD Iza Giles MD PROCEDURE/MINOR SURG ICAL ORDERABLES documented in this encounter Visit Diagnoses Diagnosis HNP (herniated nucleus pulposus), lumbar Displacement of lumbar intervertebral disc without myelopathy documented in this encounter Administered Medications Inactive Administered Medications - up to 3 most recent administrations Medication Order MAR Action Action Date Dose Rate Site dexamethasone sodium (PF) injection 10 mg 10 mg, Epidural, ONCE, 1 dose, On Sun07/22/13 at 0800, Routine Given 07/22/2013 8:00 AM EDT 10 mg iohexol (OMNIPAQUE) injection 1 mL 1 mL, Epidural, ONCE, 1 dose, On Sun07/22/13 at 0800, Wasted 49 ml, Routine Given 07/22/2013 8:00 AM EDT 1 mL documented in this encounter Care Teams Radio Message Router Relationship Specialty Start Date End Date Stefanie Santizo APRN [id number] [place] [address] PCP - General 05/08/13 11/26/16 documented as of this encounter
--- OUTSIDE RECORDS SUMMARY | 2024-05-07 02:56 | XMS_ITS | Encounter Summary ---
[facility] [place] [address] Care Team Providers Care Gas Engine Performance Engineer Name Role Phone Marly Joyjs Ramos APRN Primary Care Provider [phone]- [phone] Encounter Details Date Type Department Care Team (Late st Contact Info) Description 08/14/2013 12:00 PM EST Clinical [place] [id number] Social History Tobacco Use Types Packs/Day Years [...] Taken Comments Blood Pressure - - Pulse 132 08/14/2013 11:55 AM EST Temperature - - Respiratory Rate - - Oxygen Saturation 99% 08/14/2013 11:55 AM EST Inhaled Oxygen Concentration - - Weight - - Height - - Body Mass Index - - documented in this encounter Progress Notes * Jorge L Carter, RN - 08/14/2013 12:09 PM EST PAT questionnaire reviewed with patient while in pre-admission testing. Pre- operative teaching folder reviewed with patient ~ expresses good understanding of all information reviewed. Pt had a zachary when she was [age] in [facility] and did fine with general anesthesia. Blood work and T&S today for OR with Cassandra on 09/17. documented in this encounter Plan of Treatment Not on file documented as of this encounter Visit Diagnoses Not on filedocumented in this encounter Care Teams Gas Engine Performance Engineer Relationship Specialty Start Date End Date Stefanie Joy APRN [phone] [place] [address] PCP - General 05/08/13 11/26/16 documented as of this encounter
--- OUTSIDE RECORDS SUMMARY | 2024-05-07 02:56 | XMS_ITS | Encounter Summary ---
Author Organization [facility] [place] [address] Care Team Providers Care Bucket Chucker Name Role Phone Joy, Stefaniejs Ramos APRN Primary Care Provider +1- [phone] Encounter Details Date Type Department Care Team (Latest Contact Info) Description 09/17/2013 5:49 AM EST - 09/17/2013 11:50 AM EST Hospital Encounter [place] [address] Brock Garcia MD [facility] [place] [address] Discharge Disposition: Home Social History Tobacco Use [...] Sign Reading Time Taken Comments Blood Pressure 130/71 09/17/2013 10:20 AM EST Pulse 71 09/17/2013 10:20 AM EST Temperature 36.2 ??C (97.2 ??F) 09/17/2013 9:00 AM ES T Respiratory Rate 16 09/17/2013 10:20 AM EST Oxygen Saturation 97% 09/17/2013 10:20 AM EST Inhaled Oxygen Concentration - - [...] them. 3. You should also take an [id number] stool softener, such as Colace or Senna, [...] please contact the Spine Center Prescription Lineat [phone]. PRESCRIPTION RENEWAL REQUESTS CAN TAKE UP TO 3 DAYS TO FILL. YOU WILL BE REQUIRED TO VETERINARY SURGERY TECHNOLOGIST YOUR NARCOTIC REFILL PRESCRIPTION IN PERSON AT [facility] [place] OR IT CAN BE MAILED TO YOUR [...] fallen off already. PLEASE CALL US AT [phone] TO SPEAK WITH A SPINE CENTER NURSE [...] Important Phone Numbers: Clinical issues, nurse questions: [phone] Medication renewals: [phone] Garcia: [phone] If you need to speak with a Spine Center resident after-hours or on weekends for any of the above listed issues please call [phone] and ask for the Ortho resident on-call. If not urgent, please leave a message with the spine nurse team and your call will be returned within a business day. Follow Up Appointments: 1. You will have follow-up appointments at [facility] [place] as indicated in the ???Future Appointments and [...] on the next business day. Please call [phone] if you do not hear from us by that time, as your timely follow-up is very important to us. Future Appointments Date Time Provider Department Center 10/15/2013 10:40 AM Brock Garcia MD [address] CLIN documented in this encounter Medications [...] encounter Miscellaneous Notes * Miscellaneous - Provider, Roverto - 09/17/2013 3:35 PM EST * Op Note - Brock Garcia MD - 09/17/2013 9:38 AM EST [facility] Operative Note Patient Name: Genie Alejandre : [id number] MR#: [id number] Case Date: 09/17/2013 Surgeon: Surgeon(s) and Role: [...] L4 and L5 on the left. A Alger was placed caudal to the L4 lamina, [...] root was gently mobilized medially using a Carroll, demonstrating the disk extrusion. A slit annulotomy was created, and the extruded disk material was removed. All the extruded material was removed with the pituitary as were any superficial, free fragments in the disk space. We did not enter deep within the disk space to remove any well fixed disk material. We used the Alger to confirm there was no longer any [...] Operative Note Patient Name: Genie Alejandre : [id number] MR#: [id number] Case Date: 09/17/2013 Surgeon: Surgeon(s) and Role: * Brock Garcia MD - Primary * Treasure Key MD - Resident-Tool Chaser Preoperative diagnosis: Left L4-5 HNP Postoperative diagnosis: Left L4-5 HNP Procedure(s): Left L4-5 diskectomy (49977) Anesthesia: General Findings: There was a subligamentous [...] MAR Action Action Date Dose Rate Site ketorolac (TORADOL) injection 15 mg 15 mg, Intravenous, ONCE, 1 dose, On Sun09/17/13 at 1000, Immediately prior to d/c, Routine Given 09/17/2013 10:00 AM EST 15 mg prochlorperazine (COMPAZINE) injection 5 mg 5 mg, Intravenous, EVERY 30 MIN PRN, 2 doses, Starting on Sun09/17/13 at 0940, Until Sun09/17/13 at 1448, Nausea, May repeat 5 mg once in 30 minutes. Call physician if ineffective., PACU Recovery, Routine Given 09/17/2013 11:09 AM EST 5 mg documented in this encounter Active and Recently [...] Until Sun09/17/13 at 1448, Intra-Operative (Intra-Procedure), Routine 924 (Given - Provid er: Brock Garcia MD - Comment: 20mls injected at the end of case.) BUpivacaine-epiNEPHrine 0.25 %-1:200,000 injection (CANCELED) ONCE PRN, Starting on Sun09/17/13 at 0821, Until Sun09/17/13 at 1448, Intra-Operative (Intra-Procedure), Routine 820 (Given - Provid er: Brock Garcia MD - Comment: Injected prior to incision.) gelatin adsorbable 100 (GELFOAM) sponge (CANCELED) ONCE PRN, Starting on Sun09/17/13 at 0821, Until Sun09/17/13 at 1448, Intra-Operative (Intra-Procedure), Routine 820 (Given - Provid er: Brock Garcia MD) methylPREDNISolone acetate (depo-MEDROL) injection (CANCELED) ONCE PRN, Starting on Sun09/17/13 at 0821, Until Sun09/17/13 at 1448, Intra-Operative (Intra-Procedure), Routine 820 (Given - Provid er: Brock Garcia MD) [...] PRN, Starting on Sun09/17/13 at 0821, Until 12/18/13 at 1448, Intra-Operative (Intra-Procedure) 0821 (Given - Provid er: Brock Garcia MD) documented in this encounter Care Teams Bucket Chucker Relationship Specialty Start Date End Date Stefanie Joy, CAS [phone] [place] [address] PCP - General 05/08/13 11/26/16 documented as of this encounter
--- OUTSIDE RECORDS SUMMARY | 2024-05-07 02:56 | XMS_ITS | Encounter Summary ---
Author Organization [facility] Address [facility] [place] [address] Care Team Providers Care Grinder Setup Operator Name Role Phone Diallo Rojas APRN Primary Care Provider [phone] Encounter Details Date Type Department Care Team (Late st Contact Info) Description 08/26/2012 9:45 AM EST Office Visit Hematology [place] [address] Constantine Harris MD [facility] [place] [address] Elevated hemoglobin (Primary Dx) Discharge Disposition: Home Social History Tobacco Use Types Packs/Day Years Used Date Smoking Tobacco: Former Comments:quit 2006 Sex and Gender Information Value Date Recorded Sex Assigned at Female 02/16/2021 7:51 PM EDT Gender Identity Female 02/16/2021 7:51 PM EDT Sexual Orientation Straight 02/16/2021 7: 51 PM EDT documented as of this encounter Last Filed Vital Signs Vital Sign Reading Time Taken Comments Blood Pressure 138/72 08/26/2012 10:02 AM EST Pulse 55 08/26/2012 10:02 AM EST Temperature 36.7 ??C (98.1 ??F) 08/26/2012 10:[address] Respiratory Rate 18 08/26/2012 10:02 AM EST Oxygen Saturation 100% 08/26/2012 10:02 AM EST Inhaled Oxygen Concentration - - Weight 109.8 kg (242 lb 1 oz) 08/26/2012 10:02 A M EST Height 159.2 cm (5' 2.68) 08/26/2012 10:[address] Body Mass Index 43.32 08/26/2012 10:02 AM EST documented in this encounter Progress Notes * Constantine Harris MD - 08/27/2012 12:15 PM EST I saw this patient with Dr Ku. I agree with the details of History and Physical Exam as documented in the above note. I was present for the critical portions of the history, exam and discussion of our recommendations. Her mild elevation of hgb is not suspicious for a myeloproliferative neoplasm. In terms of secondary reasons for mild elevation of Hgb we suspect she has sleep apnea. Recommend evaluation and treatment for that. If Hgb/WBC continue to increase she should be reevaluated in heme clinic in future Please see above note for full details. * Jennifer Ku - 08/26/2012 10:12 AM EST Subjective: Patient ID: Genie Alejandre is a 37 y.o. female. HPI 37 year old female presents for evaluation of polycythemia discovered on labs obtained recentlyfor fatigue. She states that her fatigue is not new but has been recently worsening and includes daytime sleepiness despite going to bed between 9 and 11PM and waking up at 7AM. She takes many naps during the day - often unintentionally - and also tells me that she snores. She tells me that she remembers being told that she had an elevated RBC about 15 years ago but that she never followed it up.She quit smoking in 2005 and has not smoked at all since then. She does have a CO detector in her house. She feels that she does flush at a baseline, sometimes when getting out of a hot shower, but nothing has changed about this recently and it is not particularly bothersome to her. Review of Systems (+)as above, also some nasal stuffiness and cough which she attributes to insulation being put intoher house, also has a rash on her scalp (seeing her PCP tomorrow). (-)fever, chills, headache, dizziness, sore throat, mouth sores, recent cold/flu sx, cough, chest pain, shortness of breath, abdominal pain, nausea, vomiting, diarrhea, constipation, dysuria, hematuria, gait disturbance, focal weakness PMH: Depression/PTSD Med: [id number] daily (she takes for joint pains) Temazepam FH: Mother: living at age 58 (doesn't see Drs, therefore hx unknown) Father: living at age 62 (doesn't see Drs, therefore hx unknown) Sister: 37, well Sister: 25, well Brother: 34, well No children Social: Lives alone. . Has 3 cats. On disability for PTSD and doesn't work. 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 5-6 pack year smoking hx - none since 2005. No EtOH or drug hx. Objective: Physical Exam BP 138/72 Pulse 55 Temp(Src) 36.7 ??C (98.1 ??F) (Oral) Resp 18 Ht 159.2 cm (5' 2.68) Wt109.8 kg (242 lb 1 oz) BMI 43.32 kg/m2 SpO2 100% General: alert, conversant, NAD, obese HEENT: PERRLA, EOMI, mmm, no oropharyngeal lesions, erythema or exudates, symmetric palate raise Neck: no palpable lymphadenopathy (including axillary lymphadenopathy) CVS: regular S1S2 without MRG Chest: CTAB, no crackles or wheezes Abdomen: soft, NT, ND, BS+ Extremities: no edema, normal bulk and tone Neuro: ambulatory, CN 2-12 grossly intact, moves all 4 extremities Skin: no visible rashes or lesions OSH Labs: 16.1 9.48 > < 278 47 MCV: 78.1 RBC: 6.02 RDW: 14.9 Epo: 10.6 TSH: 4.64 LFTs and BMP WNL Recent Results (from the past 24 hour(s)) CBC (WITH DIFF) Component Value Range ??? WBC 12.1 (*) 4.0 - 10.0 (x10(3)/mcL) ??? RBC 5.88 (*) 3.93 - 5.22 (x10(6)/mcL) ??? Hemoglobin 16.7 (*) 11.2 - 15.7 (gm/dL) ??? Hematocrit 48.3 (*) 34.0 - 45.0 (%) ??? MCV 82.1 79.0 - 94.0 (fL) ??? MCH 28.4 26.6 - 32.2 (pg) ??? MCHC 34.6 32.0 - 36.5 (gm/dL) ??? Platelets 253 145 - 370 (x10(3)/mcL) ??? RDWSD 41.8 35.0 - 46.0 (fL) ??? RDWCV 14.0 10.9 - 14.4 (%) ??? MPV 9.9 9.0 - 12.0 (fL) RETICULOCYTE COUNT Component Value Range ??? Retic Ct % 1.3 0.5 - 2.4 (%) ??? Retic Ct Abs 0.080 0.027 - 0.095 (x10(6)/mcL) ??? Immature Retic% 6.8 2.3 - 15.9 (%) ??? Reticulated Hgb 32.6 28.8 - 38.9 (pg) ??? Plat Immature % 2.9 0.0 - 7.4 (%) DIFFERENTIAL, AUTOMATED Component Value Range ??? Neutrophils % 72.8 (*) 34.0 - 71.0 (%) ??? Neutr Abs (ANC) 8.82 (*) 1.50 - 6.30 (x10(3)/mcL) ??? Lymphocytes % 20.5 19.0 - 53.0 (%) ??? Lymphocytes Abs 2.5 1.0 - 3.6 (x10(3)/mcL) ??? Monocytes % 6.3 4.0 - 13.0 (%) ??? Monocyte Abs 0.8 0.2 - 1.0 (x10(3)/mcL) ??? Eosinophils % 0.0 0.0 - 7.0 (%) ??? Eosinophils Abs 0.0 0.0 - 0.5 (x10(3)/mcL) ??? Basophils % 0.1 0.0 - 2.0 (%) ??? Basophils Abs 0.0 0.0 - 0.2 (x10(3)/mcL) ??? Immature Gran % 0.30 0.00 - 0.66 (%) ??? Monse Gran Abs 0.04 0.00 - 0.05 (x10(3)/mcL) Assessment and Plan: 37 year old female presents for evaluation of polycythemia discovered on labs obtained recently forfatigue. Her fatigue primarily consists of daytime sleepiness and, when considered in the context of her weight and snoring, CARLOS seems to be the most likely explanation for her fatigue. This could also easily explain her hgb level - when the body becomes intermittently hypoxic, rec blood cell production increases to compensate. Alternatively, she could have plasma volume contraction, although this is less likely. Given the normal epo level, neoplastic process is effectively ruled out, and therewould not be any utility in sending Yobani-2 or BCR-Abl studies. These could be considered if she tests negative for CARLOS, the possibility of which seems extremely unlikely. We will send iron studies because of her low MCV, but will not need to see her back unless her hgb level is still elevated after6-12 months of treatment for CARLOS. documented in this encounter Plan of Treatment Not on file documented as of this encounter Procedures Procedure Name Priority Date/Time Associated Diagnosis Comments DIFFERENTIAL, AUTOMATED Routine 08/26/2012 11:00 AM EST IRON AND TIBC Routine 08/26/2012 11:00 AM EST Elevated hemoglobin RETICULOCYTE COUNT Routine 08/26/2012 11 :00 AM EST Elevated hemoglobin CBC (WITH DIFF) Routine 08/26/2012 11:00 AM EST Elevated hemoglobin FERRITIN Routine 08/26/2012 11:00 AM EST Elevated hemoglobin documented in this encounter Results * (ABNORMAL) DIFFERENTIAL, AUTOMATED (08/26/2012 11:00 AM EST) Neutrophil % 72.8(H) 34.0 - 71.0 % CERNER MILLENNIUM Neutrophil Absolute 8.82(H) 1.50 - 6.30 x10(3)/mc L CERNER MILLENNIUM Lymph % 20.5 19.0 - 53.0 % CERNER MILLENNIUM Lymphocytes Abs 2.5 1.0 - 3.6 x10(3)/mc L CERNER MILLENNIUM Monocyte % 6.3 4.0 - 13.0 % CERNER MILLENNIUM Monocyte Abs 0.8 0.2 - 1.0 x10(3)/mc L CERNER MILLENNIUM Eos % 0.0 0.0 - 7.0 % CERNER MILLENNIUM Eosinophils Abs 0.0 0.0 - 0.5 x10(3)/mc L CERNER MILLENNIUM Basophil % 0.1 0.0 - 2.0 % CERNER MILLENNIUM Baso Absolute 0.0 0.0 - 0.2 x10(3)/mc L CERNER MILLENNIUM Immature Gran % 0.30 0.00 - 0.66 % CERNER MILLENNIUM Comment: Immature granulocytes(IG's)percentage and absolute count will include metamyelocytes, myelocytes, and promyelocytes. Blood smears from CBCs yielding IG's will be scanned manually for concordance. If this scan disagrees with the automated IG or if promyelocytes are noted, a manual differential will be performed. Immature Gran Absolute 0.04 0.00 - 0.05 x10(3)/mc L CERNER MILLENNIUM Blood specimen (specimen) 08/26/2012 11:00 AM EST 08/26/2012 11:16 AM EST Constantine Harris MD HEMATOLOGY ORDERABLE S CERLAUREL LOUIEIUM * (ABNORMAL) Ferritin (08/26/2012 11:00 AM EST) [facility] Ferritin 330(H) 15 - 150 ng/mL CERNER MILLENNIUM Comment: Pediatric reference ranges not verified at [facility], interpret with caution. Reference ranges for females greater than 50 years of age approach values for men, i.e., 30-400 ng/mL. Blood specimen (specimen) 08/26/2012 11:00 AM EST 08/26/2012 11:16 AM EST Narrative Resulting Agency Comment Spec In Lab Constantine Harris MD CHEMISTRY ORDERABLES Performing Organization Address [facility] Co de Phone Number PHAM PATENNIUM * Iron and TIBC (08/26/2012 11:00 AM EST) Iron 68 30 - 150 mcg/dL CERNER MILLENNIUM TIBC 295 250 - 450 mcg/dL CERNER MILLENNIUM Iron Saturation 23 20 - 50 % CERN ER MILLENNIUM Blood specimen (specimen) 08/26/2012 11:00 AM EST 08/26/2012 11:16 AM EST Narrative Resulting Agency Comment Spec In Lab Constantine Harris MD CHEMISTRY ORDERABLES Performing Organization Address [facility] de Phone Number CERLAUREL MILLENNIUM * Reticulocyte Count (08/26/2012 11:00 AM EST) Reticulocyte % 1.3 0.5 - 2.4 % CERNER MILLENNIUM Retic Abs # 0.080 0.027 - 0.095 x10(6)/mcL CERNER MILLENNIUM Immature Retic% 6.8 2.3 - 15.9 % CERNER MILLENNIUM Reticulated Hgb 32.6 28.8 - 38.9 pg CERNER MILLENNIUM Immature Plt % 2.9 0.0 - 7.4 % CERNER MILLENNIUM Blood specimen (specimen) 08/26/2012 11:00 AM EST 08/26/2012 11:16 AM EST Narrative Resulting Agency Comment Spec In Lab Constantine Harris MD HEMATOLOGY ORDERABLE S PHAM PATENNIUM * (ABNORMAL) CBC (with Diff) (08/26/2012 11:00 AM EST) White Blood Cell 12.1(H) 4.0 - 10.0 x10(3)/mc L CERNER MILLENNIUM Red Blood Cell 5.88(H) 3.93 - 5.22 x10(6)/mc L CERNER MILLENNIUM Hemoglobin 16.7(H) 11.2 - 15.7 gm/dL CERNER MILLENNIUM Hematocrit 48.3(H) 34.0 - 45.0 % CERNER MILLENNIUM Mean Cell Volume 82.1 79.0 - 94.0 fL CERNER MILLENNIUM Mean Cell Hemoglobin 28.4 26.6 - 32.2 pg CERNER MILLENNIUM Mean Cell Hemoglobin Concentration 34.6 32.0 - 36.5 gm/dL CERNER MILLENNIUM Platelet 253 145 - 370 x10(3)/mc L CERNER MILLENNIUM RDW Standard Deviation 41.8 35.0 - 46.0 fL CERNER MILLENNIUM RDW coefficient of variation 14.0 10.9 - 14.4 % CERNER MILLENNIUM Mean Platelet Volume 9.9 9.0 - 12.0 fL CERNER MILLENNIUM Blood specimen (specimen) 08/26/2012 11:00 AM EST 08/26/2012 11:16 AM EST Narrative Resulting Agency Comment Spec In Lab Constantine Harris MD HEMATOLOGY ORDERABLE S PHAM ROSEN documented in this encounter Visit Diagnoses Diagnosis Elevated hemoglobin- Primary Other hemoglobinopathies documented in this encounter Care Teams Grinder Setup Operator Relationship Specialty Start Date End Date Diallo Rojas APRN PCP - General 08/26/12 05/07/13 documented as of this encounter
--- OUTSIDE RECORDS SUMMARY | 2024-05-07 02:56 | XMS_ITS | Encounter Summary ---
Author Organization [facility] Address [facility] [place] [address] Care Team Providers Care Linux Network Administrator Name Role Phone Stefanie Joy APRN Primary Care Provider [phone]- [phone] Encounter Details Date Type Department Care Team (Late st Contact Info) Description 07/16/2013 External Results XRay at [address] [place] [address] Provider, Scanning Social History Tobacco Use Types [...] Procedure Name Priority Date/Time Associated Diagnosis Comments MRI/MRA SCAN Routine 07/08/2013 documented in this encounter Results * Scan Doc: MRI/MRA (07/08/2013) Anatomical Region Laterality Modality Other Scanning Provider MEDIA MGR SCAN EXT O RDR/RSLT documented in this encounter Visit Diagnoses Not on filedocumented in this encounter Care Teams Linux Network Administrator Relationship Specialty Start Date End Date Stefanie Joy APRN [phone] [place] [address] PCP - General 05/08/13 11/26/16 documented as of this encounter
--- OUTSIDE RECORDS SUMMARY | 2024-05-07 02:56 | XMS_ITS | Encounter Summary ---
Author Organization [facility] [place] [address] Care Team Providers Care Supervisor Lace Tearing Name Role Phone Stefanie Joy APRN Primary Care Provider [phone]- [phone] Reason for Referral * Consultation (Routine) - Closed Specialty Diagnoses / Procedures Referred By Contac t Referred To Contact Pain Management Diagnoses HNP (herniated nucleus pulposus), lumbar Brock Trujillo MD [facility] [place] [address] [facility] [address] [place] [address] Referral ID Status Reason Start Date Expiration Date V isits Requested Visits Authorized [id number] Closed Consult Only 07/17/2013 01/13/2014 1 1 Reason for Visit * Reason Comments Back Pain Encounter Details Date Type Department Care Team (Late st Contact Info) Description 07/17/2013 12:15 PM EDT Office Visit [place] [address] Brock Trujillo MD [facility] [place] [address] HNP (herniated nucleus pulposus), lumbar (Primary Dx) [...] Concentration - - Weight 107.5 kg (237 lb) 07/17/2013 12:54 PM EDT Height 162.6 cm (5' 4) 07/17/2013 12:54 PM EDT Body Mass Index 40.68 07/17/2013 12:54 PM EDT documented in this encounter Progress Notes * Brock Trujillo MD - 07/17/2013 1:27 PM EDT CHIEF COMPLAINT: Left lower extremity pain greater than low back pain. HISTORY OF PRESENT ILLNESS: Ms. Alejandre is a 38-year-old female who I am seeing in consultation for Stefanie Joy in regards to her back pain that radiates to her left buttock, left posterolateral thigh, and lateral leg. This came on insidiously about four months ago. This was associated with some numbness in the dorsum of the left foot and a sense of weakness about the left foot and ankle, particularly when it is painful. The pain is worse with standing and improves if she sits down. It keeps her up at night. She denies constitutional symptoms or changes in her bowel or bladder function. She has been treated with six weeks of physical therapy that gave her no relief. She had undergone four steroid tapers, only one of which gave her any relief. She is taking naproxen and tramadol. They are helping to some degree, though the pain is still quite limiting. She has never had prior spine surgery. PAST MEDICAL HISTORY: Hypothyroidism, sleep apnea, depression, and PTSD. PAST SURGICAL HISTORY: Cholecystectomy and kidney stone procedure. MEDICATIONS: Reviewed and are in eD-H. ALLERGIES: REVIEWED AND ARE IN ED-H. FAMILY HISTORY: Heart disease, cancer, and diabetes SOCIAL HISTORY: The patient last worked in [employer] service in 2004. She is disabled due to PTSD. She does not smoke and occasionally drinks. REVIEW OF SYSTEMS: All negative except musculoskeletal as above. PHYSICAL EXAMINATION: The patient is 5 feet 4 inches, 237 pounds. General: The patient is comfortable in no acute distress. Back: Tender to palpation over left sciatic notch. She can flex to 80 degrees and extend 10 degrees, the extension being uncomfortable. Neurologic Exam: She walks with an antalgic gait. She is able to heel walk and toe walk. Motor exam reveals 4+/5 strength of her left ankle dorsiflexor and 4/5 strength of her left EHL. She has some diminished sensation in the dorsum and lateral border of the left foot. Reflexes are 2/4 at the knees and ankle and symmetric. She has a positive straight leg raise in the left. She has no clonus, Babinski is negative. Hip examination: Normal, painless range of motion of both hips. Vascular Exam: She has palpable pulses bilaterally. IMAGING: MRI of the lumbar spine from 07/08/2013 demonstrates no significant listhesis. She has some disk desiccation at L3-L4 and L4-L5. On the left at L4-L5, she has a focal posterolateral disk herniation compressing the traversing L5 nerve in the lateral recess. She does not have any significant foraminal stenosis. ASSESSMENT AND PLAN: Ms. Alejandre is a 38-year-old female who presents with four months of left L5 radiculopathy in the setting of a left L4-L5 disk herniation. I discussed her treatment options that include continued medication, continued physical therapy, injections, and surgery. She feels as though she would like to proceed with an injection. In her case, we will set her up for a left L4-L5 transforaminal epidural steroid injection. I told her she could repeat up to 3 of these in a year if they give her good relief. In the event that she failed to get much relief from this and decides she wants to discuss surgery, she should return to see me with AP and lateral x-rays of the lumbar spine. Surgery in her case will be a left L4-L5 diskectomy. documented in this encounter Plan of Treatment Scheduled Referrals Name Type Priority Associated Diagnoses Orde r Schedule Referral to Pain Clinic Outpatient Referral Routine HNP (herniated nucleus pulposus), lumbar Ordered: 07/17/2013 documented as of this encounter Visit Diagnoses Diagnosis HNP (herniated nucleus pulposus), lumbar- Primary Displacement of lumbar intervertebral disc without myelopathy documented in this encounter Care Teams Supervisor Lace Tearing Relationship Specialty Start Date End Date Stefanie Joy APRN [phone] [place] [address] PCP - General 05/08/13 11/26/16 documented as of this encounter
--- OUTSIDE RECORDS SUMMARY | 2024-05-07 02:56 | XMS_ITS | Encounter Summary ---
Author Organization [facility] Address [facility] [place] [address] Care Team Providers Care Public Relations Officer Name Role Phone Diallo Rojas APRN Primary Care Provider [phone] Encounter Details Date Type Department Care Team (Late st Contact Info) Description 02/25/2013 Orders Only Nephrology Hypertension at [facility] [place] [address] Alex Marr MD [facility] [place] [address] Social History Tobacco Use Types Packs/Day Years [...] Associated Diagnosis Comments FILM LIBRARY STORAGE ONLY ULTRASOUND STUDY Routine 02/25/2013 9:15 AM EDT documented in this encounter Results * Film Library- Storage only Ultrasound Study (02/25/2013 9:15 AM EDT) 02/25/2013 9:15 AM EDT Narrative RAD - 05/25/2014 11:05 PM EDT This is a non-reportable exam. Procedure Note Kehinde Falcon 05/25/2014 This is a non-reportable exam. Alex Aydin Marr MD [facility] FILM LIBRARY ORD ERABLES RAD [address] [place] [address] documented in this encounter Visit Diagnoses Not on filedocumented in this encounter Care Teams Public Relations Officer Relationship Specialty Start Date End Date Diallo Rojas, TUFTING MACHINE OPERATOR SINGLE NEEDLE PCP - General 08/26/12 05/07/13 documented as of this encounter
--- OUTSIDE RECORDS SUMMARY | 2024-05-07 02:56 | XMS_ITS | Encounter Summary ---
Author Organization [facility] Address [facility] Prashant hern[address] [address] Care Team Providers Care Attendant Lodging Facilities Name Role Phone Rufino Stefaniejs Ramos APRN Primary Care Provider +1- [phone] Reason for Visit * Reason Comments Chronic Kidney Disease Encounter Details Date Type Department Care Team (Late st Contact Info) Description 05/08/2013 1:00 PM EDT Follow-Up [place] [address] Alex Marr MD [facility] [place] [address] Renal insufficiency (Primary Dx); History of nephrolithiasis; Leg cramps; Right renal mass Discharge Disposition: Home Social History Tobacco Use [...] Reading Time Taken Comments Blood Pressure 136/91 05/08/2013 1:10 PM EDT Pulse 65 05/08/2013 1:10 PM EDT Temperature - - Respiratory Rate - - Oxygen Saturation - - Inhaled Oxygen Concentration - - Weight 107.5 kg (237 lb) 05/08/2013 1:10 PM EDT Height 162.6 cm (5' 4) 05/08/2013 1:10 PM EDT Body Mass Index 40.68 05/08/2013 1:10 PM EDT documented in this encounter Progress Notes * Alex Marr MD - 05/08/2013 1:14 PM EDT Nephrology/Hypertension Clinic Follow-up Note [id number] ID: 38 y.o.year-old female for follow up of elevated cr and h/o kidney stones and renal angiomylipoma Past Medical History: No past medical history on file. Patient Active Problem List Diagnoses Code ??? Right renal mass 593.9 ??? Psoriasis 696.1 ??? Hypothyroid 244.9 ??? Depression 311 ??? CARLOS (obstructive sleep apnea) 327.23 Current Outpatient Prescriptions on File Prior to Visit Medication Sig Dispense Refill ??? zolpidem (AMBIEN) 5 mg tablet Take 10 mg by mouth nightly as needed. ??? triamcinolone (KENALOG) 0.1 % lotion Apply topically 3 times daily. ??? fluocinonide (LIDEX) 0.05 % ointment Apply topically 2 times daily. ??? multivitamin (THERAGRAN) tablet Take 1 tablet by mouth daily. Naprosyn 500mg bid for sciatic nerve pain Also, just finished a medrol dose pack. No Known Allergies S: scheduled f/u. Overall health has been good. She did have a bout of sciatica on the left for which she just finished a medrol dose pack (no relief) and will be seeing a PT. Feet swelled mildly on the pack. Her sx include pain and paresthesias traveling from left hip down into foot. No kidney stone or Urinary sx. No chest pain or sob. She does have occasional leg cramps. Home BPs Aug 116/90, 100/80, 100/80 O: Filed Vitals: 05/08/13 1310 BP: 136/91 Pulse: 65 Repeat Left arm seated 130/80, right arm seated 120/80 General: Nad Eye: marquise ENT: Crowded op Neck: Thick, no jvd CV: rrr without m/r/g Resp: Clear Back: no vertebral or cva tenderness Abd: Obese, soft, nt, nabs Ext: No pretib pitting edema Skin: No rash Neuro: reflexes 2+ elbows, knees, right ankle, 1+ left ankle, light touch intact, no motor wkns Psych: Normal mood and affect Outside CT: prob angiomyolipoma right kidney, repeat CT in 6 months 24 hour urine vol 2.7 liters, no sig metabolic abnormality except low mag excretion. See scanned data. Results for GENIE ESTRADA ( ) as of 05/09/2013 17:19 Ref. Range 05/08/2013 13:41 Sodium Latest Range: 135-145 mmol/L 135 Potassium Latest Range: 3.5-5.0 mmol/L 4.0 Chloride Latest Range: 98-107 mmol/L 98 CO2 Latest Range: 22-31 mmol/L 24 Anion Gap Latest Range: 5-15 mmol/L 13 BUN Latest Range: 8-18 mg/dL 24 (H) Creatinine Latest Range: 0.70-1.20 mg/dL 1.10 Estimated GFR Latest Range: >=60 55 (L) Glucose Lvl Latest Range: 60-199 mg/dL 82 Calcium Latest Range: 8.5-10.5 mg/dL 10.1 Magnesium Latest Range: 0.69-1.07 mmol/L 0.82 Phosphorus Latest Range: 2.5-4.5 mg/dL 3.3 Lab Results Component Value Date WBC 9.8 03/03/2013 RBC 6.04* 03/03/2013 HGB 16.6* 03/03/2013 HCT 49.6* 03/03/2013 MCV 82.1 03/03/2013 MCH 27.5 03/03/2013 MCHC 33.5 03/03/2013 PLATELET 243 03/03/2013 RDWCV 13.9 03/03/2013 Chemistry Component Value Date/Time NA 139 03/03/2013 1548 K 4.4 03/03/2013 1548 CL 103 03/03/2013 1548 CO2 25 03/03/2013 1548 BUN 19* 03/03/2013 1548 CREATININE 1.23* 03/03/2013 1548 Component Value Date/Time CALCIUM 9.8 03/03/2013 1548 Lab Results Component Value Date PHOS 2.9 03/03/2013 Results for GENIE ESTRADA ( ) as of 05/09/2013 17:19 Ref. Range 03/03/2013 15:48 PTH Latest Range: 15-65 pg/mL 37 A/P: 38-year-old woman with a history of nephrolithiasis. No current symptoms. 24-hour urine showing good urine volumes and no stone risk factors except for her hypomagnesemia. Significance of this is unclear. Her serum magnesium is normal. At this point, I have advised her to continue with a high fluid intake to maintain urine output is between 2 and 3 L per day. 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 The CT will also show us if there is any evidence of stone disease. Previous serum creatinineshave been mildly elevated, but today's value is at the upper range of normal. Her estimated glomerular filtration is still less than 60 which can signs her to stage 3 chronic kidney disease, but I suspect That her renal function is probably better than this. I will see her back next spring after her followup CT scan and recheck the renal function at that time. The initial blood pressure was mildly elevated, but was normal on repeat. She will continue to monitor her blood pressure at home and let he know if it is elevated. The pain in the left buttock radiating down the left leg to the left foot is typical of sciatic nerve pain. Hopefully she will get relief with physical therapy. This is being addressed by her primaryprovider. Schedule f/u [facility] at [facility] next Nov to make sure no change in suspected renal angiomyolipoma F/u in spring CC: STEFANIE SANTIZO APRN [address] [place] [address] documented in this encounter Plan of Treatment Not on file documented as of this encounter Procedures Procedure Name Priority Date/Time Associated Diagnosis Comments PHOSPHORUS Routine 05/08/2013 1:41 PM EDT Renal insufficiency History of nephrolithiasis Leg cramps MAGNESIUM Routine 05/08/2013 1:41 PM EDT Renal insufficiency History of nephrolithiasis Leg cramps BASIC METABOLIC PANEL Routine 05/08/2013 1:41 PM EDT Renal insufficiency History of nephrolithiasis Leg cramps documented in this encounter Results * Magnesium (05/08/2013 1:41 PM EDT) Magnesium 0.82 0.69 - 1.07 mmol/L CERNER MILLENNIUM Blood specimen (specimen) 05/08/2013 1:41 PM EDT 05/08/2013 1:44 PM EDT Narrative Resulting Agency Comment Spec In Lab Alex Marr MD CHEMISTRY ORDERABLES Performing Organization Address [facility] Phone Number CERNER ADILIAENNIUM * Phosphorus (05/08/2013 1:41 PM EDT) Phosphorus 3.3 2.5 - 4.5 mg/dL CERNER MILLENNIUM Blood specimen (specimen) 05/08/2013 1:41 PM EDT 05/08/2013 1:44 PM EDT Narrative Resulting Agency Comment Spec In Lab Alex Marr MD CHEMISTRY ORDERABLES Performing Organization Address [facility] de Phone Number CERNER MILLENNIUM * (ABNORMAL) Basic Metabolic Panel (non-fasting) (05/08/2013 1:41 PM EDT) Glucose 82 60 - 199 mg/dL CERNER MILLENNIUM Comment:Diabetes: >=200 mg/d L plus symptoms Blood Urea Nitrogen 24(H) 8 - 18 mg/dL CERNER MILLENNIUM Creatinine 1.10 0.70 - 1.20 mg/dL CERNER MILLENNIUM Comment: Please note that the pediatric reference intervals supplied above were not validated at [facility]. Results from pediatric patients should be interpreted in conjunction to the patient's age, height and muscle mass. Sodium 135 135 - 145 mmol/L CERNER MILLENNIUM Potassium 4.0 3.5 - 5.0 mmol/L CERNER MILLENNIUM Comment: Please note: ??Patients with WBC >100,000 may have falsely elevated Potassium levels. ??For accurate Potassium quantification in these patients send serum separator tube (gold top) for subsequent determinations. ??Contact the Clinical Chemistry Laboratory if there are any questions. Chloride 98 98 - 107 mmol/L CERNER MILLENNIUM Carbon Dioxide 24 22 - 31 mmol/L CERNER MILLENNIUM Anion Gap 13 5 - 15 mmol/L CERNER MILLENNIUM Calcium 10.1 8.5 - 10.5 mg/dL CERNER MILLENNIUM Est Glomerular Filtration Rate 55(L) >=60 CERNER MILLENNIUM Comment: This estimated GFR [...] internet browser. http://www.nkdep.nih.gov/lab-evaluation.shtml http://www.kidney.org/professionals/ Blood specimen (specimen) 05/08/2013 1:41 PM EDT 05/08/2013 1:44 PM EDT Narrative Resulting Agency Comment Spec In Lab Alex Marr MD CHEMISTRY ORDERABLES PHAM ROSEN documented in this encounter Visit Diagnoses Diagnosis Renal insufficiency- Primary Unspecified disorder of kidney and ureter History of nephrolithiasis Personal history of urinary calculi Leg cramps Cramp of limb Right renal mass Unspecified disorder of kidney and ureter documented in this encounter Care Teams Attendant Lodging Facilities Relationship Specialty Start Date End Date Stefanie Santizo APRN [phone] [place] [address] PCP - General 05/08/13 11/26/16 documented as of this encounter
--- OUTSIDE RECORDS SUMMARY | 2024-05-07 02:56 | XMS_ITS | Encounter Summary ---
Author Organization [facility] [place] [address] Care Team Providers Care Supervisor Lead Refinery Name Role Phone Stefanie Joy APRN Primary Care Provider +1- [phone] Encounter Details Date Type Department Care Team (Late st Contact Info) Description 07/08/2013 Orders [place] [address] Brock Trujillo MD [facility] [place] [address] Social History Tobacco Use Types Packs/Day Years [...] Associated Diagnosis Comments FILM LIBRARY STORAGE ONLY MR SPINE Routine 07/08/2013 8:10 AM EDT documented in this encounter Results * Film Library- Storage only MR Spine (07/08/2013 8:10 AM EDT) 07/08/2013 8:10 AM EDT Narrative [facility] - 05/27/2014 11:27 AM EDT This is a non-reportable exam. Procedure Note Kehinde Falcon - 05/27/2014 This is a non-reportable exam. Brock Trujillo MD IM FILM LIBRARY ORD ERABLES [facility] [id number] [place] [address] documented in this encounter Visit Diagnoses Not on filedocumented in this encounter Care Teams Supervisor Lead Refinery Relationship Specialty Start Date End Date Stefanie Joy, CAS [phone] [place] [address] PCP - General 05/08/13 11/26/16 documented as of this encounter
--- OUTSIDE RECORDS SUMMARY | 2024-05-07 02:56 | XMS_ITS | Encounter Summary ---
[place] [address] Care Team Providers Care Engineering Department Chair Name Role Phone RufinoMarlyjs Ramos APRN Primary Care Provider +1- [phone] Encounter Details Date Type Department Care Team (Late st Contact Info) Description 08/06/2013 Telephone [place] [id number] Sheree Reyes Social History Tobacco Use Types Packs/Day Years [...] Miscellaneous Notes * Telephone Encounter - Britt Lipscomb RN - 08/06/2013 12:14 PM EST Xray order placed per earlier office note. documented in this encounter Plan of Treatment Not on file documented as of this encounter Results * XR lumbar spine 2 or 3 views (08/14/2013 10:47 AM EST) Anatomical Region Laterality Modality L-spine N/A Radiographic Ana ging 08/14/2013 10:4 7 AM EST Narrative 08/14/2013 11:25 AM EST Examination LSPINE 2 OR 3 VIEWS Clinical History LOW BACK PAIN W/LEFT LOWER EXTREMITY PAIN; LUMBAR SPINE AP,LAT XRAYS Comparison 07/22/2013. Technique AP and lateral views lumbar spine standing position. Findings Mild levoconvex scoliosis centered at L3-L4. ??Surgical clips present in right upper quadrant, probably from cholecystectomy. ??Mild bilateral sacroiliac arthropathy present. ??Lumbar spine is straightened with loss of lordosis, there is moderate degenerative disc disease at L5-S1 and milder changes at L3-L4 and L4-L5. ??Moderate facet arthropathy at L5-S1. ??No compression deformities noted. Impression Multi level mild to moderate degenerative disc disease as above. ??No compression fractures noted. ??Straightening of lumbar spine may reflect muscle spasm. ??Mild levo convex scoliosis lower lumbar spine. Procedure Note Rodrigo Mendez MD - 08/14/2013 Examination LSPINE 2 OR 3 VIEWS Clinical History LOW BACK PAIN W/LEFT LOWER EXTREMITY PAIN; LUMBAR SPINE AP,LAT XRAYS Comparison 07/22/2013. Technique AP and lateral views lumbar spine standing position. Findings Mild levoconvex scoliosis centered at L3-L4. Surgical clips present inright upper quadrant, probably from cholecystectomy. Mild bilateral sacroiliac arthropathy present. Lumbar spine is straightened with loss of lordosis,there is moderate degenerative disc disease at L5-S1 and milder changes at L3-L4and L4-L5. Moderate facet arthropathy at L5-S1. No compression deformitiesnoted. Impression Multi level mild to moderate degenerative disc disease as above. No compression fractures noted. Straightening of lumbar spine may reflectmuscle spasm. Mild levo convex scoliosis lower lumbar spine. Brock Trujillo MD IMG DX ORDERABLES documented in this encounter Visit Diagnoses Diagnosis Low back pain radiating to left leg- Primary Lumbago Low back pain radiating to left leg Lumbago documented in this encounter Care Teams Engineering Department Chair Relationship Specialty Start Date End Date Stefanie oJy, LIQUID CHLORINE OPERATOR [phone] [place] [address] PCP - General 05/08/13 11/26/16 documented as of this encounter
--- OUTSIDE RECORDS SUMMARY | 2024-05-07 02:56 | XMS_ITS | Encounter Summary ---
Author Organization [facility] Address [facility] [place] [address] Care Team Providers Care High School Teacher Name Role Phone Stefanie Joy APRN Primary Care Provider +1- [phone] Encounter Details Date Type Department Care Team (Latest Contact Info) Description 08/14/2013 10:25 AM EST - 08/14/2013 12:28 PM [facility] Hospital Encounter XRay at [address] [place] [address] Low back pain radiating to left leg Social History Tobacco Use Types Packs/Day Years [...] LUMBAR SPINE 2 OR 3 VIEWS Routine 08/14/2013 10:47 AM EST Low back pain radiating to left leg documented in this encounter Results * XR [...] Diagnosis Low back pain radiating to left leg Lumbago documented in this encounter Care Teams High School Teacher Relationship Specialty Start Date End Date Stefanie Joy, LABEL REWINDER [phone] [place] [address] PCP - General 05/08/13 11/26/16 documented as of this encounter
[2024-05-07 14:59] LABS: TSH (W/Ref FT4) 0.04 uIU/mL (0.36-3.74)
[2024-05-07 15:25] LABS: ALT 20 U/L (14-59); AST 15 U/L (15-37); Albumin 3.5 g/dL (3.4-5.0); Alkaline Phosphatase 68 U/L (46-116); Anion Gap 11.8 mmol/L (3-11); BUN 14 mg/dL (7-18); CO2 23.2 mmol/L (21.0-32.0); CREATININE 1.5 mg/dL (0.55-1.02); Calcium 9.7 mg/dL (8.5-10.1); Chloride 99 mmol/L (98-107); Estimated GFR 41.93 (mL/min/1.73m2); Glucose 103 mg/dL (74-106); Magnesium 1.8 mg/dL (1.8-2.4); Potassium 4.4 mmol/L (3.5-5.1); Sodium 134 mmol/L (136-145); Total Protein 7.4 g/dL (6.4-8.2)
[2024-05-07 15:36] LABS: FREE T4 1.75 ng/dL (0.76-1.46)
[2024-05-09 20:03] LABS: Erythropoietin 12.6 mIU/mL (2.6 - 18.5)
== END 2024-05-07 02:46 | disposition home or self-care (01) ==
LOC: LBO 02:46
PROVIDERS: Internal Medicine Endocrinology, Diabetes & Metabolism; PCP Student in an Organized Health Care Education/Training Program; Visit Provider Student in an Organized Health Care Education/Training Program
DX: Z91.89 Other specified personal risk factors, not elsewhere classified (principal); R77.0 Abnormality of albumin; Z79.899 Other long term (current) drug therapy; E46 Unspecified protein-calorie malnutrition; K90.9 Intestinal malabsorption, unspecified; E89.0 Postprocedural hypothyroidism
CPT/HCPCS: 36415; 80053; 82668; 83735; 84439; 84443

== ENCOUNTER 2024-07-18 01:57 | Outpatient (CLI) | payer OTHER, MEDICAID, SELFPAY ==
--- OUTSIDE RECORDS SUMMARY | 2024-07-18 02:11 | XMS_ITS | Encounter Summary ---
Author Organization [facility] Address [facility] [place] [address] Care Team Providers Care Quality Lab Technician Name Role Phone Brittany Muhammad Primary Care Provider +1- [phone] Reason for Visit * Reason Onset Date Comments Medication Refill 11/30/2022 Encounter Details Date Type Department Care Team (Late st Contact Info) Description 11/30/2022 Refill [place] [address] Mark Anthony Watts MD [facility] [place] [address] Social History Tobacco Use Types Packs/Day Years [...] 021 11:55 AM EDT) No Crystal Holley, PROFESSOR OF SOCIAL WORK Note: Continue metformin 1000mg in the evening [...] 1/4 avocado, 1-2 tbsp dressing 1-2 cups [id number] veggies Write down in a notebook with [...] on filedocumented in this encounter Care Teams Quality Lab Technician Relationship Specialty Start Date End Date Brittany Muhammad DO [address] [place] [address] PCP - General Family Medicine 01/23/19 documented as of this encounter
--- OUTSIDE RECORDS SUMMARY | 2024-07-18 02:11 | XMS_ITS | Encounter Summary ---
Author Organization [facility] Address [address] [place] [address] Care Team Providers Care Receiving Clerk Name Role Phone Unknown, Provider Primary Care Provider Encounter Details Date Type Department Care Team (Late st Contact Info) Description 08/25/2020 Lab Requisition [facility] [place] Pathology & Laboratory Medicine - [address] [id number] Outr Resulting Lab, Provider Social History Tobacco [...] ulin <15 <=60 U/mL 09/28/2020 14:32 EST [facility] Blood VENOUS BLOOD / Unknown 08/02/2020 9:14 EST 09/21/2020 11:26 EST Provider Outr Resulting Lab CHEMISTRY & BLOOD GAS ORDERABLES [facility] [address] [place] [address] documented in this encounter Visit Diagnoses Not on filedocumented in this encounter Care Teams Receiving Clerk Relationship Specialty Start Date End Date Unknown, Provider, PCP - General 02/20/13 documented as of this encounter
--- OUTSIDE RECORDS SUMMARY | 2024-07-18 02:11 | XMS_ITS | Encounter Summary ---
Author Organization [facility] Address [facility] [place] [address] Care Team Providers Care Live Games Dealer Name Role Phone RubioBrittany reynolds Jose DO Primary Care Provider +1- [phone] Encounter Details Date Type Department Care Team [...] to sleep or slept in a senior living (including now)? No 12/29/2022 Sex and Gender [...] 1/4 avocado, 1-2 tbsp dressing 1-2 cups [id number] veggies Write down in a notebook with [...] on filedocumented in this encounter Care Teams Live Games Dealer Relationship Specialty Start Date End Date Brittany Muhammad DO [address] [place] [address] PCP - General Family Medicine 01/23/19 documented as of this encounter
--- OUTSIDE RECORDS SUMMARY | 2024-07-18 02:11 | XMS_ITS | Encounter Summary ---
Author Organization [facility] Address [facility] [place] [address] Care Team Providers Care Arch Cushion Skiving Machine Operator Name Role Phone Brittany Muhammad DO Primary Care Provider [phone]- [phone] Reason for Visit * Consultation (Routine) - Closed Specialty Diagnoses / Procedures Referred By Cash reese Referred To Contact Nephrology Diagnoses Disorder of kidney and ureter Essential hypertension Brittany Muhammad DO [address] [place] [address] [facility] [address] [place] [id number] Referral ID Status Reason Start Date Expiration Date V isits Requested Visits Authorized [id number] Closed Consult, Test & Treat PCP Updated and/or Approved 03/31/2022 03/31/2023 6 6 Encounter Details Date Type Department Care Team (Late st Contact Info) Description 01/29/2023 1:00 PM EDT Office Visit Neph[place] [address] [facility] [place] [address] Stage 3a chronic kidney disease; [...] place to sleep or slept in a skilled nursing (including now)? No 12/29/2022 Sex and Gender [...] Guidry MD - 01/29/2023 1:00 PM EDT [facility] 01/29/2023 PRIMARY CARE/REFERRING [...] 1.57) performed by Olive Liu MD at [facility] MAIN OR ??? PRG UNLISTED DIAGNOSTIC GASTROENTEROLOGY PROCEDURE 1992 Gallbladder removed ??? PRO LAMINOTOMY, LUMBAR DISK, 1 INTRSP 09/17/2013 LAMINOTOMY, DECOMPRESSION, FORAMINOTOMY, LUMBAR performed by Brock Trujillo MD at [facility] MAIN OR ??? PRO THYROIDECTOMY N/A 04/07/2019 THYROIDECTOMY, TOTAL OR COMPLETE (WRVU 15.04) performed by Olive Liu MD at [facility] MAIN OR MEDICATIONS: Current Outpatient Medications Medication Sig Dispense Refill ??? cholecalciferol, Vitamin D3, 25 mcg (1,000 unit) Capsule 2,000 Units. ??? SUMAtriptan (IMITREX) 20 mg/actuation [place], Non-Aerosol Once ??? cyanocobalamin, Vitamin B-12, (Vitamin [...] sample today, so I sent orders to [facility] to check a urinalysis and a urine uyiueru-we-bzerlsoaab ratio. If she has proteinuria, I may [...] options, and coordinating care. Thalia Guidry MD [facility] [place] [address] E-mail: [email or web address] documented in this encounter Plan of Treatment [...] 1/4 avocado, 1-2 tbsp dressing 1-2 cups [id number] veggies Write down in a notebook with [...] 25 OH 44 21 - 100 ng/mL [facility] Vit D Interp Sufficient [facility] Blood 01/29/2023 12:1 5 PM EDT 01/29/2023 12:29 PM EDT Narrative Resulting Agency Comment Spec In Lab Thalia Guidry MD CHEMISTRY ORDERABLE S [facility] [place] [address] * (ABNORMAL) Phosphorus (01/29/2023 12:15 PM EDT) Phosphorus 1.7(L) 2.5 - 4.5 mg/dL [facility] Blood 01/29/2023 12:1 5 PM EDT 01/29/2023 12:29 PM EDT Narrative Resulting Agency Comment Spec In Lab Thalia Guidry MD CHEMISTRY ORDERABLE S Performing Organization Address City/[facility]/ZIP Co de Phone Number [facility] [place] [address] * Albumin Level (01/29/2023 12:15 PM EDT) Albumin 3.9 3.2 - 5.2 g/dL [facility] Blood 01/29/2023 12:1 5 PM EDT 01/29/2023 12:29 PM EDT Narrative Resulting Agency Comment Spec In Lab Thalia Guidry MD CHEMISTRY ORDERABLE S Performing Organization Address City/[facility]/ZIP Co de Phone Number [facility] [place] [address] * PTH (01/29/2023 12:15 PM EDT) Parathyroid Hormone 24 15 - 65 pg/mL [facility] Blood 01/29/2023 12:1 5 PM EDT 01/29/2023 12:29 PM EDT Narrative Resulting Agency Comment Spec In Lab Thalia Guidry MD CHEMISTRY ORDERABLE S [facility] [place] [address] * Lipid Panel (Reflex Direct LDL) (01/29/2023 12:15 PM EDT) Cholesterol, Total 148 mg/dL [facility] Comment: Lower Risk: <200 mg/dL Average Risk: 200-239 mg/dL Higher Risk: >nj=402 mg/dL Triglyceride 197 mg/dL [facility] Comment: Average Risk/Lower Risk: <150 mg/dL Borderline High Risk: 150-199 mg/dL High Risk: 200-499 mg/dL Very High Risk: >ff=919 mg/dL HDL Cholesterol 48 mg/dL [facility] Comment: Males: ?? Higher Risk: <40 mg/dL Females: ?? Higher Risk: <50 mg/dL LDL Cholesterol 61 mg/dL [facility] Comment: Lowest Risk: <100 mg/dL Lower Risk: 100-129 mg/dL Borderline High Risk: 130-159 mg/dL High Risk: 160-189 mg/dL Very High Risk: >ml=843 mg/dL Cholesterol/HDL Ratio 3.1 ratio [facility] Lipid Interpretation See Note [facility] Comment: Lipid management should be guided by a patient? s ASCVD risk, goals and preferences. ACC/AHA Guidelines recommend high intensity statin if clinical ASCVD or LDL greater than or equal to 190 mg/dL. http://tenfarmsurl.com/OVP-UXO-Wucuhexwh Adults aged 40-75 with LDL 70-189 mg/dL should have their 10 year ASCVD risk estimated with the ACC/AHA ASCVD risk lead producer http://tools.acc.org/AOIZG-Cjco-Gehzwrqrr/ Statin should be discussed if risk greater [...] Lab Thalia Guidry MD CHEMISTRY ORDERABLE S [facility] [place] [address] * (ABNORMAL) Basic Metabolic Panel (non-fasting) (01/29/2023 12:15 PM EDT) Glucose 153 65 - 199 mg/dL [facility] Comment:Diabetes: >=200 mg/d L plus symptoms Blood Urea Nitrogen 13 8 - 18 mg/dL [facility] Creatinine 1.24(H) 0.70 - 1.20 mg/dL [facility] Sodium 138 135 - 145 mmol/L [facility] Potassium 4.9 3.5 - 5.0 mmol/L [facility] Comment: Please note: ??Patients with WBC >100,000 may have falsely elevated Potassium levels. ??For accurate Potassium quantification in these patients send serum separator tube (gold top) for subsequent determinations. ??Contact the Clinical Chemistry Laboratory if there are any questions. Chloride 102 98 - 107 mmol/L [facility] Carbon Dioxide 24 22 - 31 mmol/L [facility] Anion Gap 12 5 - 15 mmol/L [facility] Calcium 9.4 8.5 - 10.5 mg/dL [facility] Est Glomerular Filtration Rate 53(L) >=60 mL/min/1. 73 m?? [facility] Comment: This patient's estimated GFR was [...] MD CHEMISTRY ORDERABLE S Performing Organization Address City/[facility]/ZIP Co de Phone Number [facility] [place] [address] documented in this encounter Visit Diagnoses Diagnosis [...] kidney documented in this encounter Care Teams Arch Cushion Skiving Machine Operator Relationship Specialty Start Date End Date Brittany Muhammad DO [address] [place] [address] PCP - General Family Medicine 01/23/19 documented as of this encounter
--- OUTSIDE RECORDS SUMMARY | 2024-07-18 02:11 | XMS_ITS | Encounter Summary ---
Author Organization [facility] Address [address] [place] [address] Care Team Providers Care Emergency Vehicle Operations Instructor Name Role Phone Unknown, Provider Primary Care Provider Encounter Details Date Type Department Care Team (Late st Contact Info) Description 10/11/2020 Lab Requisition [facility] Pathology & Laboratory Medicine - [facility] [address] [place] [address] Cristian Paula MD [address] [place] [phone] Encounter for other general examination Social History [...] intestinal metaplasia; Negative for dysplasia. 10/13/2020 17:49 [facility] Attestation By the signature below, the attending physician certifies that they have 1) personally conducted a gross and/or microscopic examination of the described specimen(s), and/or personally interpreted the results of laboratory testing of the described specimen(s), and 2) personally rendered or confirmed the above diagnosis. 10/13/2020 17:49 [facility] at 1749 Clinical History GERD, abdominal pain 10/13/2020 17:49 [facility] Gross Description A. Received in [...] The specimen is submitted in C1. BRITTNEY PINK([facility]) 10/12/2020 8:19 10/13/2020 17:49 [facility] Performing Lab [facility] 17:49 [facility] Scanned Images 10/13/2020 17:49 [facility] Tissue ENTIRE ESOPHAGUS / Unknown 10/11/2020 14:07 EST 10/11/2020 23:19 EST Tissue specimen (specimen) STOMACH STRUCTURE / Unknown 10/11/2020 14:07 EST 10/11/2020 23:19 EST Tissue specimen (specimen) ESOPHAGEAL STRUCTURE / Unknown 10/11/2020 14:07 EST 10/11/2020 23:19 EST Cristian Paula MD PATHOLOGY ORDERA [facility] [address] [place] [address] documented in this encounter Visit Diagnoses Diagnosis Encounter for other general examination documented in this encounter Care Teams Emergency Vehicle Operations Instructor Relationship Specialty Start Date End Date Unknown, Provider, PCP - General 02/20/13 documented as of this encounter
--- OUTSIDE RECORDS SUMMARY | 2024-07-18 02:11 | XMS_ITS | Encounter Summary ---
Author Organization [facility] Address [facility] [place] [address] Care Team Providers Care Housekeeper Nanny Name Role Phone Brittany Muhammad DO Primary Care Provider +1- [phone] Reason for Visit * Reason Comments Advice Only * Consultation (Routine) - Closed Specialty Diagnoses / Procedures Referred By Cash reese Referred To Contact Hematology and Oncology Diagnoses Other abnormality of red blood cells Brittany Muhammad DO [address] [place] [address] [facility] [address] [place] [address] Referral ID Status Reason Start Date Expiration Date V isits Requested Visits Authorized [id number] Closed Consult, Test & Treat PCP Updated and/or Approved 11/01/2022 11/01/2023 6 6 Encounter Details Date Type Department Care Team (Late st Contact Info) Description 01/03/2023 11:00 AM EDT Office Visit [place] [address] [facility] [place] [address] Iron deficiency; Leukocytosis, unspecified type [...] 1.57) performed by Olive Liu MD at [facility] MAIN OR ??? PRG UNLISTED DIAGNOSTIC GASTROENTEROLOGY PROCEDURE 1992 Gallbladder removed ??? PRO LAMINOTOMY, LUMBAR DISK, 1 INTRSP 09/17/2013 LAMINOTOMY, DECOMPRESSION, FORAMINOTOMY, LUMBAR performed by Brock Trujillo MD at [facility] MAIN OR ??? PRO THYROIDECTOMY N/A 04/07/2019 THYROIDECTOMY, TOTAL OR COMPLETE (WRVU 15.04) performed by Olive Liu MD at [facility] MAIN OR MEDICATIONS: Reviewed with the pt [...] azelastine (ASTELIN) 137 mcg (0.1 %) Aerosol, [place] ??? dextroamphetamine-amphetamine (Adderall) 10 mg Tablet ??? fluticasone propionate (FLONASE) 50 mcg/actuation [place], Suspension ??? Ventolin HFA 90 mcg/actuation HFA Aerosol Inhaler ??? clonazePAM (KlonoPIN) 0.5 mg Tablet, Rapid Dissolve ??? loratadine (Claritin) 10 mg Tablet ??? SUMAtriptan (IMITREX) 50 mg Tablet ALLERGIES/ADR: Reviewed Allergies Allergen Reactions ??? Bupropion Mood swings ??? Flexeril [Cyclobenzaprine] Anger PERSONAL and SOCIAL HISTORY: Reviewed ?? Lives in [facility] ?? Smoking: quit smoking 10 years ago. [...] plan. ? 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 I request her PCP to f/up on that. I reviewed my impression and recommendations with Genietiffanie Alejandre and answered all the questions..Pt agreed with the plan. Thank you Brittany Ku for asking us to see this very pleasant patient. Please don't hesitate to contact me if you'd like to discuss this patient's situation further. Galen Ventura MD [facility] [place] CC: Brittany B DO Sabina Muhammad Irene [...] night Follow up with sleep lab at [facility] regarding treatment of sleep apnea food [...] 1/4 avocado, 1-2 tbsp dressing 1-2 cups [id number] veggies Write down in a notebook with [...] EDT) Iron 50 30 - 150 mcg/dL [facility] TIBC 377 250 - 450 mcg/dL [facility] Iron Saturation 13(L) 20 - 50 % [facility] Blood 01/03/2023 11:4 7 AM EDT 01/03/2023 11:52 AM EDT Narrative Resulting Agency Comment Spec In Lab Galen Gallardo MD CHEMISTRY ORDERA BLEEj [facility] [place] [address] * Reticulocyte Count (01/03/2023 11:47 AM EDT) Reticulocyte % 1.9 0.7 - 2.5 % [facility] Retic Abs # 0.110 0.020 - 0.110 x10(6)/mcL [facility] Immature Retic% 11.8 0.5 - 13.8 % [facility] Reticulated Hgb 31.0 29.8 - 39.4 pg [facility] Blood 01/03/2023 11:4 7 AM EDT 01/03/2023 11:52 AM EDT Narrative Resulting Agency Comment Spec In Lab Galen Gallardo MD HEMATOLOGY ORDER [place]OS[place] Performing Organization Address City/[facility]/ZIP Co de Phone Number [facility] [place] [address] * Ferritin (01/03/2023 11:47 AM EDT) Ferritin 129 15 - 150 ng/mL [facility] Comment: Pediatric reference ranges not verified at [facility], interpret with caution. Reference ranges for females greater than 50 years of age approach values for men, i.e., 30-400 ng/mL. Blood 01/03/2023 11:4 7 AM EDT 01/03/2023 11:52 AM EDT Narrative Resulting Agency Comment Spec In Lab Galen Gallardo MD CHEMISTRY ORDERA BLES Performing Organization Address City/[facility]/ZIP Co de Phone Number [facility] [place] [address] documented in this encounter Visit Diagnoses Diagnosis Iron deficiency Iron deficiency anemia, unspecified Leukocytosis, unspecified type documented in this encounter Care Teams Housekeeper Nanny Relationship Specialty Start Date End Date Brittany Muhammad DO [address] [place] [address] PCP - General Family Medicine 01/23/19 documented as of this encounter
--- OUTSIDE RECORDS SUMMARY | 2024-07-18 02:11 | XMS_ITS | Encounter Summary ---
Author Organization [facility] Address [address] [place] [address] Care Team Providers Care Boiler Installer Name Role Phone Unknown, Provider Primary Care Provider Encounter Details Date Type Department Care Team (Late st Contact Info) Description 09/05/2022 Lab Requisition [facility] Pathology & Laboratory Medicine - [facility] [address] [place] [address] Renetta Barajas PA-C [address], [place] [id number] Encounter for other general examination Social History [...] management options, if applicable. 09/15/2022 17:00 EST [facility] Final Diagnosis A. SOFT TISSUE OF AXILLA, LEFT, EXCISION: - Lipoma with focal reactive/reparati ve changes. 09/15/2022 17:00 [facility] Attestation There was significant resident/fellow involvement in the diagnostic evaluation of this case. By the signature below, the attending physician certifies that they have personally conducted a gross and/or microscopic examination of the described specimens and rendered or confirmed the above diagnosis. 09/15/2022 17:00 [facility] at 1700 Clinical History Skin cyst/lipoma 09/15/2022 17:00 [facility] Gross Description A. Received in formalin labelled with proper patient identification (initials S, H) and left axillary is an aggregate of fibrofatty tissue (3.1 x 2.8 x 1.2 cm). There is no grossly observable capsule. The specimen is entirely submitted in blocks A1-A4. Ilsa Carl MD 09/06/2022 13:01 09/15/2022 17:00 [facility] Resident/Rambo w: Ilsa Carl MD 09/15/2022 17:00 [facility] Performing Lab [facility] 09/15/2022 17:00 [facility] Scanned Images 09/15/2022 17:00 [facility] Tissue SOFT TISSUE / Unknown 09/05/2022 11:30 EST 09/05/2022 19:39 EST Renetta Barajas PA-C PATHOLOGY ORDERABL ES [facility] [address] [place] [address] documented in this encounter Visit Diagnoses Diagnosis Encounter for other general examination documented in this encounter Care Teams Boiler Installer Relationship Specialty Start Date End Date Unknown, Provider, PCP - General 02/20/13 documented as of this encounter
--- OUTSIDE RECORDS SUMMARY | 2024-07-18 02:11 | XMS_ITS | Encounter Summary ---
[place] [address] Care Team Providers Care Corporate Event Planner Name Role Phone Sabina Brittanyjs Garcia DO Primary Care Provider +1- [phone] Encounter Details Date Type Department Care Team (Latest Contact Info) Description 11/01/2023 12:40 PM EST Laboratory Appointment Lab [address] [id number] Thyroid cancer; Hypothyroidism, postsurgical; Prediabetes; Vitamin D [...] place to sleep or slept in a fci (including now)? No 12/29/2022 Sex and Gender [...] 1/4 avocado, 1-2 tbsp dressing 1-2 cups [id number] veggies Write down in a notebook with [...] Free T4 2.19(H) 0.93 - 1.70 ng/dL [facility] Comment: Reference Interval (ng/dL): Females: ??First Trimester: 0.97-1.68 ??Second Trimester: 0.77-1.51 ??Third Trimester: 0.77-1.49 Blood 11/01/2023 12:1 5 PM EST 11/01/2023 12:52 PM EST Narrative Resulting Agency Comment Spec In Lab Mark Anthony Watts MD CHEMISTRY ORDERAB LES [facility] [place] [address] * (ABNORMAL) TSH [place] (11/01/2023 12:15 PM EST) Thyroid Stimulating Hormone 0.01(L) 0.27 - 4.20 mcIU/mL [facility] Comment: Reference Interval (mcIU/mL): Females: ??First Trimester: 0.23-3.88 ??Second Trimester: 0.22-3.90 ??Third Trimester: 0.44-4.66 Blood 11/01/2023 12:1 5 PM EST 11/01/2023 12:29 PM EST Narrative Resulting Agency Comment Spec In Lab Mark Anthony Watts MD CHEMISTRY ORDERAB LES [facility] [place] [address] * (ABNORMAL) Thyroglobulin (11/01/2023 12:15 PM EST) Thyroglobulin <0.1(L) 1.3 - 31.8 ng/mL [facility] Comment: INTERPRETIVE INFORMATION: Thyroglobulin, Serum or [...] - 4.0 IU/mL [facility] Comment: INTERPRETIVE INFORMATION: Thyroglobulin Antibody A value of 4.0 IU/mL or less indicates a negative result for thyroglobulin antibodies. The Thyroglobulin Antibody assay is being performed using the Elsy Gurwinder Access DxI method. Please note that as 06/28/22 this testing is performed at [facility] This change is associated with a change in testing method and reference intervals. Values from other methods may not correlate with this method. Please review the results of this test in assocaition with the posted reference intervals. Thyroglobulin by LC-MS/MS Not Applicable 1.3 - 31.8 ng/mL [facility] Comment: INTERPRETIVE INFORMATION: Thyroglobulin by LC-MS/MS, Serum/Plasma Lower limit of detection for Thyroglobulin by LC-MS/MS is 0.5 ng/mL. This test was developed and its performance characteristics determined by [facility] It has not been cleared or approved by the [place] Food and Drug Administration. This test was performed in a CLIA certified laboratory and is intended for clinical purposes. Performed By: [facility] [address] [place] [id number] Sign Designer: David Easley MD, PhD CLIA Number: [id number] Blood 11/01/2023 12:1 5 PM EST 11/01/2023 2:44 PM EST Narrative Resulting Agency Comment Spec In Lab Mark Anthony Watts MD LAB SEND OUT ORDE RABLES Performing Organization Address City/[facility] Co de Phone Number [facility] [place] [address] * Hemoglobin A1c (11/01/2023 12:15 PM EST) Hemoglobin A1c 5.3 4.3 - 5.6 % [facility] Comment: Reference Range: 4.3 - 5.6% [...] Mellitus, Diabetes Care 2013; 36: Suppl. 1, H35-63 Estimated Average Glucose 105 mg/dL [facility] Blood 11/01/2023 12:1 5 PM EST 11/01/2023 12:29 PM EST Narrative Resulting Agency Comment Spec In Lab Mark Anthony Watts MD CHEMISTRY ORDERAB LES Performing Organization Address [facility] [place] [address] * Vitamin D, 25-Hydroxy (11/01/2023 12:15 PM EST) Vitamin D Total 25 OH 50 21 - 100 ng/mL [facility] Vit D Interp Sufficient [facility] Blood 11/01/2023 12:1 5 PM EST 11/01/2023 12:29 PM EST Narrative Resulting Agency Comment Spec In Lab Mark Anthony Watts MD CHEMISTRY ORDERAB LES [facility] [place] [address] * (ABNORMAL) Renal Function Panel (11/01/2023 12:15 PM EST) Glucose 164 65 - 199 mg/dL [facility] Comment:Diabetes: >=200 mg/d L plus symptoms Blood Urea Nitrogen 18 8 - 18 mg/dL [facility] Creatinine 1.22(H) 0.70 - 1.20 mg/dL [facility] Sodium 138 135 - 145 mmol/L [facility] Potassium 4.4 3.5 - 5.0 mmol/L [facility] Comment: Please note: ??Patients with WBC >100,000 may have falsely elevated Potassium levels. ??For accurate Potassium quantification in these patients send serum separator tube (gold top) for subsequent determinations. ??Contact the Clinical Chemistry Laboratory if there are any questions. Chloride 102 98 - 107 mmol/L [facility] Carbon Dioxide 23 22 - 31 mmol/L [facility] Anion Gap 13 5 - 15 mmol/L [facility] Calcium 9.9 8.5 - 10.5 mg/dL [facility] Est Glomerular Filtration Rate 54(L) >=60 mL/min/1. 73 m?? [facility] Comment: This patient's estimated GFR was [...] - 5.2 g/dL [facility] Phosphorus 2.7 2.5 - 4.5 mg/dL [facility] Blood 11/01/2023 12:1 5 PM EST 11/01/2023 12:29 PM EST Narrative Resulting Agency Comment Spec In Lab Mark Atnhony Watts MD CHEMISTRY ORDERAB LES [facility] [address] documented in this encounter Visit Diagnoses Diagnosis Thyroid cancer Malignant neoplasm of thyroid gland Hypothyroidism, postsurgical Postsurgical hypothyroidism Prediabetes Other abnormal glucose Vitamin D insufficiency Unspecified vitamin D deficiency PCOS (polycystic ovarian syndrome) Polycystic ovaries documented in this encounter Care Teams Corporate Event Planner Relationship Specialty Start Date End Date Brittany Muhammad DO [address] [place] [address] PCP - General Family Medicine 01/23/19 documented as of this encounter
--- OUTSIDE RECORDS SUMMARY | 2024-07-18 02:11 | XMS_ITS | Encounter Summary ---
[place] [address] Care Team Providers Care Carpet Winder Name Role Phone Brittany Muhammad DO Primary Care Provider +1- [phone] Reason for Referral * Consultation (Routine) - Closed Specialty Diagnoses / Procedures Referred By Cash reese Referred To Contact Hematology and Oncology Diagnoses Other abnormality of red blood cells Brittany Muhammad DO [address] [place] [place] [address] [facility] [address] [place] [address] Referral ID Status Reason Start Date Expiration Date V isits Requested Visits Authorized [id number] Closed Consult, Test & Treat PCP Updated and/or Approved 11/01/2022 11/01/2023 6 6 Encounter Details Date Type Department Care Team (Latest Contact Info) Description 11/01/2022 Transcribe Orders eDH Incoming Referrals [phone] Brittany Muhammad DO [address] [place], [place] [id number] Other abnormality of red blood cells Social [...] Follow up with sleep lab at [facility] regarding treatment of sleep apnea [...] 1/4 avocado, 1-2 tbsp dressing 1-2 cups [id number] veggies Write down in a notebook with [...] cells documented in this encounter Care Teams Carpet Winder Relationship Specialty Start Date End Date Brittany Muhammad DO [address] [place] [place] [address] PCP - General Family Medicine 01/23/19 documented as of this encounter
--- OUTSIDE RECORDS SUMMARY | 2024-07-18 02:11 | XMS_ITS | Clinical Summary ---
Author Organization [facility] Address [facility] [place] [address] Care Team Providers Care Thread Dresser Name Role Phone Brittany Muhammad DO Primary Care Provider +1- [phone] Allergies Active Allergy Reactions Criticality Noted Date [...] Units. 12/22/2021 Active SUMAtriptan (IMITREX) 20 mg/actuation [place], Non-Aerosol 1 spray by Nasal route as [...] 05/12/23 THEN WEEKLY 10/06/2023 Active levothyroxine (Synthroid) 137 mcg tablet Take 1 tablet by mouth daily. 90 tablet 3 05/14/2024 Active Active Problems Problem Noted Date Diagnosed [...] Immunizations Name Administration Dates Next Due Covid-19 Bivalent (Pfizer Co mirnaty) 12yrs+ (4440-2211) 07/11/2022 Covid-19 Monovalent (Moderna Spikevax) 12yrs+ (0842-7390) 08/19/2021,01/19/2021,12/22/2020 Influenza Quadrivalent, Pres ervative Free 07/11/2022,08/30/2021,07/26/2020,2018,08/19/2018,09/20/2017 Influenza Unspecified Formulation 09/13/2018 Pneumococcal 20-Valent Conju gate (Prevnar 20) 02/17/2022 Tdap (Adacel, Boostrix) 05/24/2021,08/15/2010 Family History Medical History Relation Comments [...] place to sleep or slept in a longterm (including now)? No 12/29/2022 Sex and Gender [...] vaccine (1 of 2) 2023 Covid-19 Vaccine (5 - 2022-2 4 season) 2024 07/11/2022, 08/19/2021, 01/19/2021, Additional history exists Influenza (Flu) vaccine (1 o f 1 - Influenza standard series) 06/01/2024 07/11/2022, 08/30/2021, 07/26/2020, Additional history exists Diabetes Screening (HgbA1C o r Glucose) 11/01/2026 11/01/2023, 11/01/2023, 01/29/2023, Additional history exists Lipid Screening 01/30/2028 01/29/2023 Tetanus/Diphtheria/Pertussis Vaccines (3 - Td or Tdap) 05/24/2031 05/24/2021, 08/15/2010 Goals Goal Patient Goal Type [...] Follow up with sleep lab at [facility] regarding treatment of sleep apnea food [...] 1/4 avocado, 1-2 tbsp dressing 1-2 cups [id number] veggies Write down in a notebook with [...] Procedure Name Priority Date/Time Associated Diagnosis Comments LAB SCAN 05/14/2024 12:00 AM EDT HEMOGLOBIN A1C Routine 11/01/2023 12:15 PM EST Thyroid cancer Hypothyroidism, postsurgical Prediabetes Vitamin D insufficiency PCOS (polycystic ovarian syndrome) LIPID PANEL (REFLEX DIRECT LDL) Routine 01/29/2023 12:15 PM EDT Stage 3a chronic kidney disease from Last 3 Months or Most Recently Relevant to Health Maintenance Results * Scan Doc: Lab (05/14/2024 12:00 AM EDT) Narrative 05/14/2024 12:00 AM EDT Ordered by an unspecified provider. Scanning Provider MEDIA MGR SCAN EXT O RDR/RSLT * Hemoglobin A1c (11/01/2023 12:15 PM EST) Hemoglobin A1c 5.3 4.3 - 5.6 % [facility] Comment: Reference Range: 4.3 - [...] Mellitus, Diabetes Care 2013; 36: Suppl. 1, P90-21 Estimated Average Glucose 105 mg/dL [facility] Blood 11/01/2023 12:1 5 PM EST 11/01/2023 12:29 PM EST Narrative Resulting Agency Comment Spec In Lab Mark Anthony Watts MD CHEMISTRY ORDERAB LES [facility] [place] [address] * Lipid Panel (Reflex Direct LDL) (01/29/2023 12:15 PM EDT) Cholesterol, Total 148 mg/dL [facility] Comment: Lower Risk: <200 mg/dL Average Risk: 200-239 mg/dL Higher Risk: >rp=755 mg/dL Triglyceride 197 mg/dL [facility] Comment: Average Risk/Lower Risk: <150 mg/dL Borderline High Risk: 150-199 mg/dL High Risk: 200-499 mg/dL Very High Risk: >tf=034 mg/dL HDL Cholesterol 48 mg/dL [facility] Comment: Males: ?? Higher Risk: <40 mg/dL Females: ?? Higher Risk: <50 mg/dL LDL Cholesterol 61 mg/dL [facility] Comment: Lowest Risk: <100 mg/dL Lower Risk: 100-129 mg/dL Borderline High Risk: 130-159 mg/dL High Risk: 160-189 mg/dL Very High Risk: >jl=489 mg/dL Cholesterol/HDL Ratio 3.1 ratio [facility] Lipid Interpretation See Note [facility] Comment: Lipid management should be guided by a patient? s ASCVD risk, goals and preferences. ACC/AHA Guidelines recommend high intensity statin if clinical ASCVD or LDL greater than or equal to 190 mg/dL. http://[employer] [email or web address].com/ACH-LEH-Bhewfilwc Adults aged 40-75 with LDL 70-189 mg/dL should have their 10 year ASCVD risk estimated with the ACC/AHA ASCVD risk construction job cost estimator http://tools.acc.org/EXFXZ-Gbwt-Jtwzjkkwa/ Statin should be discussed if risk greater [...] Lab Thalia Guidry MD CHEMISTRY ORDERABLE S [facility] [place] [address] from Last 3 Months or Most Recently Relevant to Health Maintenance Care Teams Thread Dresser Relationship Specialty Start Date End Date Brittany Muhammad DO [address] [place], [place] [phone] PCP - General Family Medicine 01/23/19
--- OUTSIDE RECORDS SUMMARY | 2024-07-18 02:11 | XMS_ITS | Encounter Summary ---
Author Organization [facility] Address [facility] [place] [address] Care Team Providers Care Deck Supervisor Name Role Phone SabinaBrtitany Jose DO Primary Care Provider +1- [phone] Encounter Details Date Type Department Care Team [...] place to sleep or slept in a snf (including now)? No 12/29/2022 Sex and Gender [...] 1/4 avocado, 1-2 tbsp dressing 1-2 cups [id number] veggies Write down in a notebook with [...] on filedocumented in this encounter Care Teams Deck Supervisor Relationship Specialty Start Date End Date Brittany Muhammad DO [address] [place] [address] PCP - General Family Medicine 01/23/19 documented as of this encounter
--- OUTSIDE RECORDS SUMMARY | 2024-07-18 02:11 | XMS_ITS | Encounter Summary ---
Author Organization [facility] Address [address] [place] [address] Care Team Providers Care Kiln Charger Name Role Phone Unknown, Provider Primary Care Provider Encounter Details Date Type Department Care Team (Late st Contact Info) Description 10/08/2019 Lab Requisition [facility] - [facility] [address] [place] [address] Cristian Paula MD [address] [place] [phone] Encounter for other general examination Social History [...] ANTIBODY(CLONE)(BLO CK):RESULT H pylori (Rabbit Monoclonal (SP48), [place]) (A/1): Negative. NOTE: One or more of [...] performance characteristics have been determined by [facility] and/or by the referring laboratory. The [...] to perform high complexity clinical laboratory testing. Division Human Resources Manager slides of this case were reviewed at the intradepartmental consultation conference. 10/10/2019 15:47 [facility] Clinical History GERD Pylorus Bx's Antrum Bx's 10/10/2019 15:47 [facility] Attestation By the signature below, the attending physician certifies that they have personally conducted a gross and/or microscopic examination of the described specimens and rendered or confirmed the above diagnosis. 10/10/2019 15:47 [facility] at 1547 Gross Description A. [...] [facility] [address] [place] [address] documented in this encounter Visit Diagnoses Diagnosis Encounter for other general examination documented in this encounter Care Teams Kiln Charger Relationship Specialty Start Date End Date Unknown, Provider, PCP - General 02/20/13 documented as of this encounter
--- OUTSIDE RECORDS SUMMARY | 2024-07-18 02:11 | XMS_ITS | Clinical Summary ---
Author Organization [facility] Address [address] [place] [address] Care Team Providers Care Administrative Support Clerk Name Role Phone Unknown, Provider Primary [...] COVID-19 Vaccine ( season) 2023 Care Teams Administrative Support Clerk Relationship Specialty Start Date End Date Unknown, Provider, PCP - General 02/20/13
--- OUTSIDE RECORDS SUMMARY | 2024-07-18 02:11 | XMS_ITS | Encounter Summary ---
Author Organization [facility] Address [facility] [place] [address] Care Team Providers Care Clinical Leader Name Role Phone RubioBrittany reynolds DO Primary Care Provider +1- [phone] Encounter Details Date Type Department Care Team [...] place to sleep or slept in a custodial (including now)? No 12/29/2022 Sex and Gender [...] night Follow up with sleep lab at [facility] regarding treatment of sleep [...] 1/4 avocado, 1-2 tbsp dressing 1-2 cups [id number] veggies Write down in a notebook with [...] on filedocumented in this encounter Care Teams Clinical Leader Relationship Specialty Start Date End Date Brittany Muhammad DO [address] [place] [place] [address] PCP - General Family Medicine 01/23/19 documented as of this encounter
--- OUTSIDE RECORDS SUMMARY | 2024-07-18 02:11 | XMS_ITS | Encounter Summary ---
Author Organization [facility] Address [facility] [place] [address] Care Team Providers Care Tdp Displays Analyst Name Role Phone RubioBrittany reynolds Jose DO Primary Care Provider +1- [phone] Encounter Details Date Type Department Care Team [...] night Follow up with sleep lab at [facility] regarding treatment of sleep [...] 1/4 avocado, 1-2 tbsp dressing 1-2 cups [id number] veggies Write down in a notebook with [...] on filedocumented in this encounter Care Teams Tdp Displays Analyst Relationship Specialty Start Date End Date Brittany Muhammad DO [address] [place] [address] PCP - General Family Medicine 01/23/19 documented as of this encounter
--- OUTSIDE RECORDS SUMMARY | 2024-07-18 02:11 | XMS_ITS | Encounter Summary ---
Author Organization [facility] Address [address] [place] [address] Care Team Providers Care Etched Circuit Processor Name Role Phone Unknown, Provider Primary Care Provider Encounter Details Date Type Department Care Team (Late st Contact Info) Description 02/18/2013 Results Only [facility] [phone] Diallo Huang, BALL RACKER [address] [place] [phone] Social History Tobacco Use Types Packs/Day Years [...] ? GENIE ESTRADA ? Accession #: ? [id number] : ? 1975 (Age: 37) ??F ?Collect Date: ? 02/18/2013 Location: ? [facility] ? Receive Date: ? 02/20/2013 Provider: ?DIALLO HUANG PLASTIC DIE MAKER APPRENTICE Copy to: ? Specimen/Source: ?Pap Test, Cervix/Endocervix, [...] Report ENRIQUE MENDOZA 02/18/2013 02/20/2013 Diallo Huang BALL RACKER PATHOLOGY ORDERABLES ENRIQUE MENDOZA [address] [place] [address] documented in this encounter Visit Diagnoses Not on filedocumented in this encounter Care Teams Etched Circuit Processor Relationship Specialty Start Date End Date Unknown, Provider, PCP - General 02/20/13 documented as of this encounter
--- OUTSIDE RECORDS SUMMARY | 2024-07-18 02:11 | XMS_ITS | Encounter Summary ---
[place] [address] Care Team Providers Care Aircraft Pneudraulic Systems Mechanic Name Role Phone SabinaAsmitajs Garcia DO Primary Care Provider +1- [phone] Encounter Details Date Type Department Care Team (Latest Contact Info) Description 01/29/2023 12:00 PM EDT Laboratory Appointment Lab [address] [address] Stage 3a chronic kidney disease Social History [...] No 12/29/2022 Housing Stability Vital Sign Answer Regsi e Recorded In the last 12 months, [...] place to sleep or slept in a residential (including now)? No 12/29/2022 Sex and Gender [...] 1/4 avocado, 1-2 tbsp dressing 1-2 cups [id number] veggies Write down in a notebook with [...] 12:15 PM EDT) Neutrophil % 71.8 % [facility] Neutrophil Absolute 9.67(H) 1.70 - 6.10 x10(3)/mc L [facility] Lymph % 20.6 % [facility] Lymphocytes Abs 2.8 0.9 - 3.2 x10(3)/mc L [facility] Monocyte % 6.8 % [facility] Monocyte Abs 0.9 0.3 - 0.9 x10(3)/mc L [facility] Eos % 0.1 % [facility] Eosinophils Abs 0.0 0.0 - 0.4 x10(3)/mc L [facility] Basophil % 0.1 % [facility] Baso Absolute 0.0 0.0 - 0.1 x10(3)/mc L [facility] Immature Gran % 0.60 % [facility] Comment: Immature granulocytes(IG's)percentage and absolute count will include metamyelocytes, myelocytes, and promyelocytes. Blood smears from CBCs yielding IG's will be scanned manually for concordance. If this scan disagrees with the automated IG or if promyelocytes are noted, a manual differential will be performed. Immature Gran Absolute 0.08(H) 0.00 - 0.04 x10(3)/mc L [facility] Blood 01/29/2023 12:1 5 PM EDT 01/29/2023 12:29 PM EDT Narrative Resulting Agency Comment Spec In Lab Thalia Guidry MD HEMATOLOGY ORDERABL ES [facility] [place] [address] * (ABNORMAL) Hemogram (01/29/2023 12:15 PM EDT) White Blood Cell 13.5(H) 4.0 - 9.5 x10(3)/mc L [facility] Red Blood Cell 5.43(H) 4.00 - 5.21 x10(6)/mc L [facility] Hemoglobin 14.9 11.7 - 15.5 g/dL [facility] Hematocrit 44.3 35.7 - 45.8 % [facility] Mean Cell Volume 81.6(L) 82.6 - 94.4 fL [facility] Mean Cell Hemoglobin 27.4 27.1 - 32.0 pg [facility] Mean Cell Hemoglobin Concentration 33.6 31.7 - 35.0 g/dL [facility] Platelet 303 145 - 357 x10(3)/mc L [facility] RDW Standard Deviation 39.9 37.0 - 46.0 fL [facility] RDW coefficient of variation 13.6 11.5 - 14.1 % [facility] Mean Platelet Volume 9.5 7.6 - 12.9 fL [facility] NRBC% auto 0.0 % [facility] NRBC Absolute 0.000 0.000 - 0.000 x10(3)/mc L [facility] Blood 01/29/2023 12:1 5 PM EDT 01/29/2023 12:29 PM EDT Narrative Resulting Agency Comment Spec In Lab Thalia Guidry MD HEMATOLOGY ORDERABL ES [facility] [place] [address] * (ABNORMAL) Basic Metabolic Panel (non-fasting) (01/29/2023 12:15 PM EDT) Glucose 153 65 - 199 mg/dL [facility] Comment:Diabetes: >=200 mg/d L plus symptoms Blood Urea Nitrogen 13 8 - 18 mg/dL [facility] Creatinine 1.24(H) 0.70 - 1.20 mg/dL [facility] Sodium 138 135 - 145 mmol/L [facility] Potassium 4.9 3.5 - 5.0 mmol/L [facility] Comment: Please note: ??Patients with WBC >100,000 may have falsely elevated Potassium levels. ??For accurate Potassium quantification in these patients send serum separator tube (gold top) for subsequent determinations. ??Contact the Clinical Chemistry Laboratory if there are any questions. Chloride 102 98 - 107 mmol/L [facility] Carbon Dioxide 24 22 - 31 mmol/L [facility] Anion Gap 12 5 - 15 mmol/L [facility] Calcium 9.4 8.5 - 10.5 mg/dL [facility] Est Glomerular Filtration Rate 53(L) >=60 mL/min/1. 73 m?? [facility] Comment: This patient's estimated [...] Lab Thalia Guidry MD CHEMISTRY ORDERABLE S [facility] [place] [address] * Lipid Panel (Reflex Direct LDL) (01/29/2023 12:15 PM EDT) Cholesterol, Total 148 mg/dL [facility] Comment: Lower Risk: <200 mg/dL Average Risk: 200-239 mg/dL Higher Risk: >fr=732 mg/dL Triglyceride 197 mg/dL [facility] Comment: Average Risk/Lower Risk: <150 mg/dL Borderline High Risk: 150-199 mg/dL High Risk: 200-499 mg/dL Very High Risk: >qf=691 mg/dL HDL Cholesterol 48 mg/dL [facility] Comment: Males: ?? Higher Risk: <40 mg/dL Females: ?? Higher Risk: <50 mg/dL LDL Cholesterol 61 mg/dL [facility] Comment: Lowest Risk: <100 mg/dL Lower Risk: 100-129 mg/dL Borderline High Risk: 130-159 mg/dL High Risk: 160-189 mg/dL Very High Risk: >ys=537 mg/dL Cholesterol/HDL Ratio 3.1 ratio [facility] Lipid Interpretation See Note [facility] Comment: Lipid management should be guided by a patient? s ASCVD risk, goals and preferences. ACC/AHA Guidelines recommend high intensity statin if clinical ASCVD or LDL greater than or equal to 190 mg/dL. http://[email or web address]/UXF-DRG-Xsdcpolhq Adults aged 40-75 with LDL 70-189 mg/dL should have their 10 year ASCVD risk estimated with the ACC/AHA ASCVD risk estimator lumber http://tools.acc.org/ZAOQP-Nngu-Msxifqxan/ Statin should be discussed if risk greater [...] Lab Thalia Guidry MD CHEMISTRY ORDERABLE S [facility] [place] [address] * PTH (01/29/2023 12:15 PM EDT) Parathyroid Hormone 24 15 - 65 pg/mL [facility] Blood 01/29/2023 12:1 5 PM EDT 01/29/2023 12:29 PM EDT Narrative Resulting Agency Comment Spec In Lab Thalia Guidry MD CHEMISTRY ORDERABLE S Performing Organization Address City/[facility]/ZIP Co de Phone Number [facility] [place] [address] * Albumin Level (01/29/2023 12:15 PM EDT) Albumin 3.9 3.2 - 5.2 g/dL [facility] Blood 01/29/2023 12:1 5 PM EDT 01/29/2023 12:29 PM EDT Narrative Resulting Agency Comment Spec In Lab Thalia Guidry MD CHEMISTRY ORDERABLE S Performing Organization Address City/[facility]/ZIP Co de Phone Number [facility] [place] [address] * (ABNORMAL) Phosphorus (01/29/2023 12:15 PM EDT) Phosphorus 1.7(L) 2.5 - 4.5 mg/dL [facility] Blood 01/29/2023 12:1 5 PM EDT 01/29/2023 12:29 PM EDT Narrative Resulting Agency Comment Spec In Lab Thalia Guidry MD CHEMISTRY ORDERABLE S [facility] [place] [address] * Vitamin D, 25-Hydroxy (01/29/2023 12:15 PM EDT) Vitamin D Total 25 OH 44 21 - 100 ng/mL [facility] Vit D Interp Sufficient [facility] Blood 01/29/2023 12:1 5 PM EDT 01/29/2023 12:29 PM EDT Narrative Resulting Agency Comment Spec In Lab Thalia Guidry MD CHEMISTRY ORDERABLE S [facility] [place] [address] documented in this encounter Visit Diagnoses Diagnosis Stage 3a chronic kidney disease documented in this encounter Care Teams Aircraft Pneudraulic Systems Mechanic Relationship Specialty Start Date End Date Brittany Muhammad DO [address] [place] [address] PCP - General Family Medicine 01/23/19 documented as of this encounter
--- OUTSIDE RECORDS SUMMARY | 2024-07-18 02:11 | XMS_ITS | Encounter Summary ---
Author Organization [facility] Address [facility] [place] [address] Care Team Providers Care Group Leader Wafer Polishing Name Role Phone Sabina Brittanyjs Garcia DO Primary Care Provider +1- [phone] Encounter Details Date Type Department Care Team (Late st Contact Info) Description 11/01/2023 1:30 PM EST Office [place] [address] Mark Anthony Watts MD [facility] [place] [address] Thyroid cancer; Hypothyroidism, postsurgical; Prediabetes; Vitamin D [...] in 2-3 mo (standing lab order) at [facility] lab. Addendum 01/16/24: Outside lab showed TSH 0.01 with FT4 2.1H=> to taper levothyroxine from 175 to150 mcg daily. Addendum 05/07/24: Outside lab showed TSH 0.04 with FT4 1.75H => to taper levothyroxine from 150 to 137 mcg daily. Justin WATTS MD - Adjust T4 dose PRN. [...] further. Orders Placed This Encounter Procedures [facility] [place] Thyroglobulin Hemoglobin A1c Vitamin D, 25-Hydroxy Renal Function Panel [facility] [place] RTC 12 months and will recheck lab [...] of the neck were obtained using a [employer] Flex Focus 400 US machine and an [...] 03/18/20 and 0.8x0.5x0.7 cm on 10/05/20 at [facility]). Lateral neck: Examination of bilateral levels II [...] Monitor TSH and Tg today Mark Anthony Watst MD, PhD, FACE, FACP Endocrine Clinic Name: [...] low level of 0.5-0.6 and US at [facility] 10/05/20 showed a midline hypoechoic lesion of [...] 42), Ca 9.6 10/05/20 : US at [facility] showed a midline hypoechoic lesion of 0.8x0.5x0.7 cm 12/15/20: TSH 0.34, 25vitamin D 30.3 borderline low (normal 30-100) 02/23/21: TSH 1.1, A1c 5.9%, no Tg was done 03/18/21: TSH 0.4, 25vitamin D 48, FSH 0.5 (+wood chopper periods on BCPs with night sweats and [...] all normal => to taperLT4 200 mcg Sun_Sun and 0.5 tab on Sunday11/01/23: TSH 0.01, [...] Capsule 2,000 Units. 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 US studies showed a persistent but [...] in 2-3 mo (standing lab order) at [facility] lab. Addendum 01/16/24: Outside lab showed TSH 0.01 with FT4 2.1H=> to taper levothyroxine from 175 to150 mcg daily. Addendum 05/07/24: Outside lab showed TSH 0.04 with FT4 1.75H => to taper levothyroxine from 150 to 137 mcg daily. Justin WATTS MD - Adjust T4 dose PRN. [...] further. Orders Placed This Encounter Procedures [facility] [place] Thyroglobulin Hemoglobin A1c Vitamin D, 25-Hydroxy Renal Function Panel [facility] [place] RTC 12 months and will recheck lab and neck US in 1-2 years. Mark Anthony Watts MD, PhD, FACE, FACP CC: Brittany Muhammad DO documented in this encounter Miscellaneous Notes * Addendum Note - Mark Anthony Watts MD - 11/01/2023 1:30 PM ESTAddended by: MARK ANTHONY WATTS on: 01/16/2024 02:12 PM Modules accepted: Orders * Addendum Note - Mark Anthony Watts MD - 11/01/2023 1:30 PM ESTAddended by: MARK ANTHONY WATTS on: 05/14/2024 05:07 PM Modules accepted: Orders documented in this encounter Plan of Treatment Scheduled Orders Name Type Priority Associated Diagnoses Orde r Schedule [facility] [place] Lab Routine Hypothyroidism, postsurgical Every 8 Weeks [...] up with sleep lab at [facility] regarding treatment of sleep [...] 1/4 avocado, 1-2 tbsp dressing 1-2 cups [id number] veggies Write down in a notebook with [...] EST) Glucose 164 65 - 199 mg/dL [facility] Comment:Diabetes: >=200 mg/d L plus symptoms Blood Urea Nitrogen 18 8 - 18 mg/dL [facility] Creatinine 1.22(H) 0.70 - 1.20 mg/dL [facility] Sodium 138 135 - 145 mmol/L [facility] Potassium 4.4 3.5 - 5.0 mmol/L [facility] Comment: Please note: ??Patients with WBC >100,000 may have falsely elevated Potassium levels. ??For accurate Potassium quantification in these patients send serum separator tube (gold top) for subsequent determinations. ??Contact the Clinical Chemistry Laboratory if there are any questions. Chloride 102 98 - 107 mmol/L [facility] Carbon Dioxide 23 22 - 31 mmol/L [facility] Anion Gap 13 5 - 15 mmol/L [facility] Calcium 9.9 8.5 - 10.5 mg/dL [facility] Est Glomerular Filtration Rate 54(L) >=60 mL/min/1. 73 m?? [facility] Comment: This patient's estimated GFR [...] eGFR. Albumin 3.8 3.2 - 5.2 g/dL [facility] Phosphorus 2.7 2.5 - 4.5 mg/dL [facility] Blood 11/01/2023 12:1 5 PM EST 11/01/2023 12:29 PM EST Narrative Resulting Agency Comment Spec In Lab Mark Anthony Watts MD CHEMISTRY ORDERAB LES [facility] [place] [address] * Vitamin D, 25-Hydroxy (11/01/2023 12:15 PM EST) Vitamin D Total 25 OH 50 21 - 100 ng/mL [facility] Vit D Interp Sufficient [facility] Blood 11/01/2023 12:1 5 PM EST 11/01/2023 12:29 PM EST Narrative Resulting Agency Comment Spec In Lab Mark Anthony Watts MD CHEMISTRY ORDERAB LES Performing Organization Address City/[facility] Co de Phone Number [facility] [address] * Hemoglobin A1c (11/01/2023 12:15 PM EST) Hemoglobin A1c 5.3 4.3 - 5.6 % [facility] Comment: Reference Range: 4.3 - 5.6% [...] Mellitus, Diabetes Care 2013; 36: Suppl. 1, S65-67 Estimated Average Glucose 105 mg/dL [facility] Blood 11/01/2023 12:1 5 PM EST 11/01/2023 12:29 PM EST Narrative Resulting Agency Comment Spec In Lab Mark Anthony Watts MD CHEMISTRY ORDERAB LES Performing Organization Address [facility] de Phone Number [facility] [address] * (ABNORMAL) Thyroglobulin (11/01/2023 12:15 PM EST) Thyroglobulin <0.1(L) 1.3 - 31.8 ng/mL [facility] Comment: INTERPRETIVE INFORMATION: Thyroglobulin, Serum or Plasma Specimens negative for thyroglobulin antibodies (TgAb) are tested for thyroglobulin (Tg) by chemiluminescent immunoassay (MANOHAR) using the Elsy [employer] Access DxI method. Specimens with TgAb results [...] Thyroglob Ab <0.9 0.0 - 4.0 IU/mL [facility] Comment: INTERPRETIVE INFORMATION: Thyroglobulin Antibody A value of 4.0 IU/mL or less indicates a negative result for thyroglobulin antibodies. The Thyroglobulin Antibody assay is being performed using the Elsy Save[employer] Access DxI method. Please note that as 06/28/22 this testing is performed at [facility]. This change is associated with a change in testing method and reference intervals. Values from other methods may not correlate with this method. Please review the results of this test in assocaition with the posted reference intervals. Thyroglobulin by LC-MS/MS Not Applicable 1.3 - 31.8 ng/mL [facility] Comment: INTERPRETIVE INFORMATION: Thyroglobulin by LC-MS/MS, Serum/Plasma Lower limit of detection for Thyroglobulin by LC-MS/MS is 0.5 ng/mL. This test was developed and its performance characteristics determined by [facility]. It has not been cleared or approved by the US Food and Drug Administration. This test was performed in a CLIA certified laboratory and is intended for clinical purposes. Performed By: [facility] [address] [place] [id number] Intervention Nurse: David Easley MD, PhD CLIA Number: [id number] Blood 11/01/2023 12:1 5 PM EST 11/01/2023 2:44 PM EST Narrative Resulting Agency Comment Spec In Lab Mark Anthony Watts MD LAB SEND OUT JOLIE CARUSO [facility] [address] * (ABNORMAL) [facility]SH [place] (11/01/2023 12:15 PM EST) Thyroid Stimulating Hormone 0.01(L) 0.27 - 4.20 mcIU/mL [facility] Comment: Reference Interval (mcIU/mL): Females: ??First Trimester: 0.23-3.88 ??Second Trimester: 0.22-3.90 ??Third Trimester: 0.44-4.66 Blood 11/01/2023 12:1 5 PM EST 11/01/2023 12:29 PM EST Narrative Resulting Agency Comment Spec In Lab Mark Anthony Watts MD CHEMISTRY ORDERAB LES Performing Organization Address City/State/[facility] [place] [address] documented in this encounter Visit Diagnoses Diagnosis Thyroid cancer Malignant neoplasm of thyroid gland Hypothyroidism, postsurgical Postsurgical hypothyroidism Prediabetes Other abnormal glucose Vitamin D insufficiency Unspecified vitamin D deficiency PCOS (polycystic ovarian syndrome) Polycystic ovaries documented in this encounter Care Teams Group Leader Wafer Polishing Relationship Specialty Start Date End Date Brittany Muhammad DO [address] [facility] [place] [address] PCP - General Family Medicine 01/23/19 documented as of this encounter
--- OUTSIDE RECORDS SUMMARY | 2024-07-18 02:11 | XMS_ITS | Encounter Summary ---
Author Organization [facility] Address [facility] [place] [address] Care Team Providers Care Word Processing Supervisor Name Role Phone RubioBrittany reynolds Jose DO Primary Care Provider +1- [phone] Encounter Details Date Type Department Care Team [...] place to sleep or slept in a fpc (including now)? No 12/29/2022 Sex and Gender [...] 1/4 avocado, 1-2 tbsp dressing 1-2 cups [id number] veggies Write down in a notebook with [...] on filedocumented in this encounter Care Teams Word Processing Supervisor Relationship Specialty Start Date End Date Brittany Muhammad DO [address] [place] [address] PCP - General Family Medicine 01/23/19 documented as of this encounter
--- OUTSIDE RECORDS SUMMARY | 2024-07-18 02:11 | XMS_ITS | Encounter Summary ---
Author Organization [facility] Address [address] [place] [address] Care Team Providers Care Brush Operator Name Role Phone Unknown, Provider Primary Care Provider Encounter Details Date Type Department Care Team (Late st Contact Info) Description 10/07/2020 Lab Requisition [facility] Pathology & Laboratory Medicine - [facility] [address] [place] [address] Outr Resulting Lab, Provider Social History Tobacco [...] Outr Resulting Lab MICROBIOLOGY - GENERAL ORDERABLES [facility] [address] [place] [address] * COVID-19 TESTING (10/07/2020 9:16 EST) COVID-19 rt-PCR Result Negative Negative 10/08/2020 15:51 EST [facility] Comment: Negative results do not preclude 2019-nCoV infection and should not be used as the sole basis for treatment or other patient management decisions. Negative results must be combined with clinical observations, patient history, and epidemiological information. This test was developed and its performance characteristics determined by [facility]. It has not been cleared or approved [...] testing. This test is based on the [facility] COVID-19 Emergency Use Authorization (EUA) assay, with minor modification as defined by the FDA Performed on the Locomizer 7 Flex. Performing Lab [facility] Lab 10/08/2020 15:51 EST [facility] Swab 10/07/2020 9:16 EST 10/07/2020 15:41 EST Provider Outr Resulting Lab MICROBIOLOGY - GENERAL ORDERABLES [facility] [address] [place] [address] documented in this encounter Visit Diagnoses Not on filedocumented in this encounter Care Teams Brush Operator Relationship Specialty Start Date End Date Unknown, Provider, PCP - General 02/20/13 documented as of this encounter
--- OUTSIDE RECORDS SUMMARY | 2024-07-18 02:11 | XMS_ITS | Encounter Summary ---
Author Organization [facility] Address [address] [place] [address] Care Team Providers Care Electronic Instrument Trades Worker Name Role Phone Unavailable Primary Care Provider Unavailabl e Encounter Details Date Type Department Care Team (Late st Contact Info) Description 06/29/2000 Results Only [facility] [place] [facility] [address] [place] [address] Carmel Quezada MD [address] [facility] [address] [place] [address] Social History Tobacco Use Types [...] ? GENIE CRESPO ? Accession #: ? [id number] : ? 1975 (Age: 25) ??F ?Collect [...] Quezada MD PATHOLOGY ORDERABLES ENRIQUE MENDOZA [address] [place] [address] documented in this encounter Visit Diagnoses Not on filedocumented in this encounter
--- OUTSIDE RECORDS SUMMARY | 2024-07-18 02:11 | XMS_ITS | Referral Summary ---
Author Organization [facility] Address [address] [place] [address] Care Team Providers Care Domestic Maid Name Role Phone Unknown, Provider Primary Care [...] of Treatment Not on file Care Teams Domestic Maid Relationship Specialty Start Date End Date Unknown, Provider, PCP - General 02/20/13
--- OUTSIDE RECORDS SUMMARY | 2024-07-18 02:11 | XMS_ITS | Encounter Summary ---
Author Organization [facility] [place] [address] Care Team Providers Care Warning Analyst Name Role Phone Brittany Muhammad DO Primary Care Provider +1- [phone] Encounter Details Date Type Department Care Team (Latest Contact Info) Description 01/03/2023 11:41 AM EDT - 01/03/2023 11:59 PM EDT Hospital Encounter Hematology [place] [address] Iron deficiency; Leukocytosis, unspecified type; Hypothyroidism, postsurgical [...] place to sleep or slept in a alf (including now)? No 12/29/2022 Sex and Gender [...] 2,000 Units. 12/22/2021 SUMAtriptan (IMITREX) 20 mg/actuation [place], Non-Aerosol 1 spray by Nasal route as [...] azelastine (ASTELIN) 137 mcg (0.1 %) Aerosol, [place] 1 spray by Nasal route daily. Use in each nostril as directed 01/26/2023 dextroamphetamine-amph etamine (Adderall) 10 mg Tablet Take 20 mg by mouth daily. 01/26/2023 fluticasone propionate (FLONASE) 50 mcg/actuation [place], Suspension INSTILL 1 SPRAY INTO EACH NOSTRIL [...] 3:19 PM EDT) No Leydi, Crystal L, FREIGHT ELEVATOR ERECTOR Note: Try to stay up during the day and be active, will make it more likely you will sleep at night Deep breathing/meditation at night Follow up with sleep lab at [facility] regarding treatment of sleep [...] 1/4 avocado, 1-2 tbsp dressing 1-2 cups [id number] veggies Write down in a notebook with [...] 11:47 AM EDT) Neutrophil % 65.2 % [facility] Neutrophil Absolute 7.62(H) 1.70 - 6.10 x10(3)/mc L [facility] Lymph % 26.4 % [facility] Lymphocytes Abs 3.1 0.9 - 3.2 x10(3)/mc L [facility] Monocyte % 7.8 % [facility] Monocyte Abs 0.9 0.3 - 0.9 x10(3)/mc L [facility] Eos % 0.0 % [facility] Eosinophils Abs 0.0 0.0 - 0.4 x10(3)/mc L [facility] Basophil % 0.2 % [facility] Baso Absolute 0.0 0.0 - 0.1 x10(3)/mc L [facility] Immature Gran % 0.40 % [facility] Comment: Immature granulocytes(IG's)percentage and absolute count will include metamyelocytes, myelocytes, and promyelocytes. Blood smears from CBCs yielding IG's will be scanned manually for concordance. If this scan disagrees with the automated IG or if promyelocytes are noted, a manual differential will be performed. Immature Gran Absolute 0.05(H) 0.00 - 0.04 x10(3)/mc L [facility] Blood 01/03/2023 11:4 7 AM EDT 01/03/2023 11:52 AM EDT Narrative Resulting Agency Comment Spec In Lab Galen Gallardo MD HEMATOLOGY ORDER LATOSHA Performing Organization Address City/[facility] Co de Phone Number [facility] [place] [address] * (ABNORMAL) Hemogram (01/03/2023 11:47 AM EDT) White Blood Cell 11.7(H) 4.0 - 9.5 x10(3)/mc L [facility] Red Blood Cell 5.65(H) 4.00 - 5.21 x10(6)/mc L [facility] Hemoglobin 15.2 11.7 - 15.5 g/dL [facility] Hematocrit 45.7 35.7 - 45.8 % [facility] Mean Cell Volume 80.9(L) 82.6 - 94.4 fL [facility] Mean Cell Hemoglobin 26.9(L) 27.1 - 32.0 pg [facility] Mean Cell Hemoglobin Concentration 33.3 31.7 - 35.0 g/dL [facility] Platelet 321 145 - 357 x10(3)/mc L [facility] RDW Standard Deviation 39.1 37.0 - 46.0 fL [facility] RDW coefficient of variation 13.4 11.5 - 14.1 % [facility] Mean Platelet Volume 9.5 7.6 - 12.9 fL [facility] NRBC% auto 0.0 % [facility] NRBC Absolute 0.000 0.000 - 0.000 x10(3)/mc L [facility] Blood 01/03/2023 11:4 7 AM EDT 01/03/2023 11:52 AM EDT Narrative Resulting Agency Comment Spec In Lab Galen Gallardo MD HEMATOLOGY ORDER LATOSHA Performing Organization Address City/[facility] Co de Phone Number [facility] [place] [address] * TSH (01/03/2023 11:47 AM EDT) Pathologist [facility] Thyroid Stimulating Hormone 1.21 0.27 - 4.20 mcIU/mL [facility] Comment: Reference Interval (mcIU/mL): Females: ??First Trimester: 0.23-3.88 ??Second Trimester: 0.22-3.90 ??Third Trimester: 0.44-4.66 Blood 01/03/2023 11:4 7 AM EDT 01/03/2023 11:52 AM EDT Narrative Resulting Agency Comment Spec In Lab Mark Anthony Watts MD CHEMISTRY ORDERAB LES Performing Organization Address [facility] Co de Phone Number [facility] [place] [address] * Ferritin (01/03/2023 11:47 AM EDT) Pathologist [facility] Ferritin 129 15 - 150 ng/mL [facility] Comment: Pediatric reference ranges not verified at [facility], interpret with caution. Reference ranges for females greater than 50 years of age approach values for men, i.e., 30-400 ng/mL. Blood 01/03/2023 11:4 7 AM EDT 01/03/2023 11:52 AM EDT Narrative Resulting Agency Comment Spec In Lab Galen Gallardo MD CHEMISTRY ORDERA BLES Performing Organization Address [facility] Co de Phone Number [facility] [place] [address] * Reticulocyte Count (01/03/2023 11:47 AM EDT) Pathologist [facility] Reticulocyte % 1.9 0.7 - 2.5 % [facility] Retic Abs # 0.110 0.020 - 0.110 x10(6)/mcL [facility] Immature Retic% 11.8 0.5 - 13.8 % [facility] Reticulated Hgb 31.0 29.8 - 39.4 pg [facility] Blood 01/03/2023 11:4 7 AM EDT 01/03/2023 11:52 AM EDT Narrative Resulting Agency Comment Spec In Lab Galen Gallardo MD HEMATOLOGY ORDER LATOSHA Performing Organization Address City/[facility] Co de Phone Number [facility] [place] [address] * (ABNORMAL) Iron and TIBC (01/03/2023 11:47 AM EDT) Iron 50 30 - 150 mcg/dL [facility] TIBC 377 250 - 450 mcg/dL [facility] Iron Saturation 13(L) 20 - 50 % [facility] Blood 01/03/2023 11:4 7 AM EDT 01/03/2023 11:52 AM EDT Narrative Resulting Agency Comment Spec In Lab Galen Gallardo MD CHEMISTRY ORDERA BLES Performing Organization Address [facility] Co de Phone Number [facility] [place] [address] documented in this encounter Visit Diagnoses Diagnosis Iron deficiency Iron deficiency anemia, unspecified Leukocytosis, unspecified type Hypothyroidism, postsurgical Postsurgical hypothyroidism documented in this encounter Care Teams Warning Analyst Relationship Specialty Start Date End Date Brittany Muhammad DO [address] [place] [address] PCP - General Family Medicine 01/23/19 documented as of this encounter
--- OUTSIDE RECORDS SUMMARY | 2024-07-18 02:11 | XMS_ITS | Encounter Summary ---
Author Organization [facility] Address [facility] [place] [address] Care Team Providers Care Tip Scourer Name Role Phone RubioBrittany reynolds Jose DO Primary Care Provider +1- [phone] Encounter Details Date Type Department Care Team [...] place to sleep or slept in a halfway (including now)? No 12/29/2022 Sex and Gender [...] 1/4 avocado, 1-2 tbsp dressing 1-2 cups [id number] veggies Write down in a notebook with [...] on filedocumented in this encounter Care Teams Tip Scourer Relationship Specialty Start Date End Date Brittany Muhammad DO [address] [place] [address] PCP - General Family Medicine 01/23/19 documented as of this encounter
--- OUTSIDE RECORDS SUMMARY | 2024-07-18 02:12 | XMS_ITS | Encounter Summary ---
Author Organization [facility] [place] [address] Care Team Providers Care Settlement Processor Name Role Phone Sabina Brittanyjs Garcia DO Primary Care Provider +1- [phone] Reason for Visit * Reason Onset Date Comments Appointment 03/15/2021 Encounter Details Date Type Department Care Team (Late st Contact Info) Description 03/15/2021 Telephone Weight and Wellness at [address] [phone] [employer] Te[facility]eira Appointment Social History [...] in about 8 weeks (around 04/14/2021) for WORKFORCE MANAGEMENT COORDINATOR, zoom, RD, HC [address]w after RD, psychologist. [...] 1/4 avocado, 1-2 tbsp dressing 1-2 cups [id number] veggies Write down in a notebook with [...] on filedocumented in this encounter Care Teams Settlement Processor Relationship Specialty Start Date End Date Brittany Muhammad DO [address] [place] [address] PCP - General Family Medicine 01/23/19 documented as of this encounter
--- OUTSIDE RECORDS SUMMARY | 2024-07-18 02:12 | XMS_ITS | Encounter Summary ---
Author Organization [facility] Address [facility] [place] [address] Care Team Providers Care Sand Plant Attendant Name Role Phone MurielBrittany nieves Primary Care Provider +1- [phone] Reason for Visit * Reason Onset Date Comments Medication Refill 09/14/2020 Encounter Details Date Type Department Care Team (Late st Contact Info) Description 09/14/2020 Refill Weight and Wellness at [address] [phone] Crystal Holley, DRY TRANSFER WORKER [facility] DR [facility]EL[facility] [address] Insulin resistance; Class 3 severe obesity with [...] 1/4 avocado, 1-2 tbsp dressing 1-2 cups [id number] veggies Write down in a notebook with [...] type documented in this encounter Care Teams Sand Plant Attendant Relationship Specialty Start Date End Date Brittany Muhammad DO [address] [place] [place] [address] PCP - General Family Medicine 01/23/19 documented as of this encounter
--- OUTSIDE RECORDS SUMMARY | 2024-07-18 02:12 | XMS_ITS | Encounter Summary ---
Author Organization [facility] [place] [address] Care Team Providers Care Instrument Technician Name Role Phone Sabina Brittanyjs Garcia DO Primary Care Provider +1- [phone] Encounter Details Date Type Department Care Team (Late st Contact Info) Description 10/07/2020 5:30 PM EST Notes Only Weight and Wellness at [address] [address] Social History Tobacco Use Types Packs/Day Years [...] 1/4 avocado, 1-2 tbsp dressing 1-2 cups [id number] veggies Write down in a notebook with [...] on filedocumented in this encounter Care Teams Instrument Technician Relationship Specialty Start Date End Date Brittany Muhammad DO [address] [place] [place] [address] PCP - General Family Medicine 01/23/19 documented as of this encounter
--- OUTSIDE RECORDS SUMMARY | 2024-07-18 02:12 | XMS_ITS | Encounter Summary ---
Author Organization [facility] Address [facility] [place] [address] Care Team Providers Care Sales Support Technician Name Role Phone MurielBrittany nieves Primary Care Provider +1- [phone] Reason for Visit * Reason Comments Medication Refill Encounter Details Date Type Department Care Team (Late st Contact Info) Description 11/05/2020 Refill Weight and Wellness at [address] [phone] Crystal Holley, HIGH SCHOOL ADMISSIONS REPRESENTATIVE [facility] DR [facility] [address] Insulin resistance; Class 3 severe obesity with [...] Follow up with sleep lab at [facility] regarding treatment of sleep apnea food [...] 1/4 avocado, 1-2 tbsp dressing 1-2 cups [id number] veggies Write down in a notebook with [...] documented in this encounter Care Teams Sales Support Technician Relationship Specialty Start Date End Date Brittany Muhammad DO [address] [place] [place] [address] PCP - General Family Medicine 01/23/19 documented as of this encounter
--- OUTSIDE RECORDS SUMMARY | 2024-07-18 02:12 | XMS_ITS | Encounter Summary ---
Author Organization [facility] [place] [address] Care Team Providers Care Distribution Tech Name Role Phone Sabina Brittanyjs Garcia DO Primary Care Provider +1- [phone] Reason for Referral * Consultation (Routine) - Closed Specialty Diagnoses / Procedures Referred By Cash reese Referred To Contact Weight and Wellness Diagnoses Class 3 severe obesity with serious comorbidity and body mass index (BMI) of 45.0 to 49.9 in adult, unspecified obesity type Crystal Holley APRN [facility] [place] [address] [facility] [address] [place] [phone] Referral ID Status Reason Start Date Expiration Date V isits Requested Visits Authorized [id number] Closed Assume Subset of Care 02/17/2021 02/17/2022 1 1 Reason for Visit * Reason Comments Follow-up weight management Encounter Details Date Type Department Care Team (Latest Contact Info) Description 02/17/2021 2:30 PM EDT TH Visit (TeleHealth) Weight and Wellness at [address] [address] Crystal Holley APRN [facility] [place] [address] Class 3 severe obesity with serious comorbidity [...] have you reconnect with RD and health excellence coach, also have referred you to our psychologist. Make sure you follow up with sleep at [facility]. Let me know if you need anything [...] [facility] regarding treatment of sleep apnea Medications 02/17/21 1523 Medication Sig Taking? metFORMIN XR (Glucophage XR) 500 mg Tablet Sustained Release 24 hr Take 2 tablets by mouth daily. With evening meal levothyroxine (Synthroid) 200 mcg Tablet Take 1 tablet by mouth daily. fluticasone propionate (FLONASE) 50 mcg/actuation [place], Suspension INSTILL 1 SPRAY INTO EACH NOSTRIL [...] APRN - 02/17/2021 2:30 PM EDT [facility] Visit Patient provided verbal consent prior to initiation of this telemedicine encounter and expressed understanding that the telemedicine visit may be billed similar to a clinic visit, pt was seen while at her home in [facility] I spent a total of 30 [...] doing regular walking with her dog at [employer] with friends. Will continue that She is [...] [facility] regarding treatment of sleep apnea INTERVAL HISTORY / PROGRESS TOWARD GOALS: [x] I reviewed past / interim records including notes and labs [facility] Followup Responses 02/25/2020 [facility] - Readiness [...] hours, still planning to follow with [facility] sleep lab but was put off due [...] 30 minutes of which were spent in [id number] discussion/counseling re obesity, nutrition and activity as [...] 1/4 avocado, 1-2 tbsp dressing 1-2 cups [id number] veggies Write down in a notebook with [...] glucose documented in this encounter Care Teams Distribution Tech Relationship Specialty Start Date End Date Brittany Muhammad DO [address] [place] [address] PCP - General Family Medicine 01/23/19 documented as of this encounter
--- OUTSIDE RECORDS SUMMARY | 2024-07-18 02:12 | XMS_ITS | Encounter Summary ---
Author Organization [facility] Address [facility] [place] [address] Care Team Providers Care Coupon Manifest Clerk Name Role Phone Brittany Muhammad Primary Care Provider +1- [phone] Reason for Visit * Reason Comments Medication Refill Encounter Details Date Type Department Care Team (Late st Contact Info) Description 02/19/2021 Refill Weight and Wellness at [address] [phone] Crystal Holley, [facility] [place] [address] Class 3 severe obesity with serious comorbidity [...] 1/4 avocado, 1-2 tbsp dressing 1-2 cups [id number] veggies Write down in a notebook with [...] glucose documented in this encounter Care Teams Coupon Manifest Clerk Relationship Specialty Start Date End Date Brittany Muhammad DO [address] [place] [address] PCP - General Family Medicine 01/23/19 documented as of this encounter
--- OUTSIDE RECORDS SUMMARY | 2024-07-18 02:12 | XMS_ITS | Encounter Summary ---
Author Organization [facility] Address [facility] [place] [address] Care Team Providers Care Can Handler Name Role Phone RubioBrittany reynolds Jose BARRETO Primary Care Provider +1- [phone] Encounter Details Date Type Department Care Team (Late st Contact Info) Description 03/20/2022 10:30 AM EDT Office Visit [place] [address] Mark Anthony Watts MD [facility] [place] [address] Thyroid cancer; Hypothyroidism, postsurgical Social History Tobacco [...] Thyroid cancer - microPTC 0.17 cm, right [id number] Stage 1 microPTC s/p Total thyroidectomy in [...] of the neck were obtained using a [employer] Flex Focus 400 US machine and an [...] 03/18/20 and 0.8x0.5x0.7 cm on 10/05/20 at [facility]). 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 Use in each nostril as directed ??? fluticasone propionate (FLONASE) 50 mcg/actuation [place], Suspension INSTILL 1 SPRAY INTO EACH NOSTRIL [...] Thyroid cancer - microPTC 0.17 cm, right [id number] Stage 1 microPTC s/p Total thyroidectomy in [...] management Lifestyle On track( 11:55 AM EDT) Crysatl Wells APRN Note: Continue working with therapist [...] 1/4 avocado, 1-2 tbsp dressing 1-2 cups [id number] veggies Write down in a notebook with [...] 11:33 AM EDT) Thyroglobulin <0.2 <=54.9 ng/mL [facility] Comment: This result was generated using a Siemens Immulite immunoassay. ??Results obtained from other methods or manufacturers cannot be used interchangeably with this method. Thyroglob Ab <20.0 0.0 - 40.0 IU/mL [facility] Comment: This result was generated using a Siemens Immulite immunoassay. ??Results obtained from other methods or manufacturers cannot be used interchangeably with this method. Blood 03/20/2022 11:3 3 AM EDT 03/21/2022 7:28 AM EDT Narrative Resulting Agency Comment Spec In Lab Mark Anthony Watts MD LAB SEND OUT JOLIE Nicholson Organization Address City/State/ZIP Co de Phone Number [facility] [place] [address] * TSH (03/20/2022 11:33 AM EDT) Thyroid Stimulating Hormone 0.29 0.27 - 4.20 mcIU/mL [facility] Comment: Reference Interval (mcIU/mL): Females: ??First Trimester: 0.23-3.88 ??Second Trimester: 0.22-3.90 ??Third Trimester: 0.44-4.66 Blood 03/20/2022 11:3 3 AM EDT 03/20/2022 11:40 AM EDT Narrative Resulting Agency Comment Spec In Lab Mark Anthony Watts MD CHEMISTRY ORDERAB LES [facility] [place] [address] documented in this encounter Visit Diagnoses Diagnosis Thyroid cancer Malignant neoplasm of thyroid gland Hypothyroidism, postsurgical Postsurgical hypothyroidism documented in this encounter Care Teams Can Handler Relationship Specialty Start Date End Date Britatny Muhammad DO [address] [facility] [place] [address] PCP - General Family Medicine 01/23/19 documented as of this encounter
--- OUTSIDE RECORDS SUMMARY | 2024-07-18 02:12 | XMS_ITS | Encounter Summary ---
[place] [address] Care Team Providers Care Administrative Clerk Name Role Phone Sabina Brittanysj Garcia DO Primary Care Provider +1- [phone] Encounter Details Date Type Department Care Team (Latest Contact Info) Description 10/16/2022 2:20 PM EST Laboratory Appointment Lab [address] [id number] Thyroid cancer; Hypothyroidism, postsurgical; PCOS (polycystic ovarian [...] up with sleep lab at [facility] regarding treatment of sleep apnea [...] 1/4 avocado, 1-2 tbsp dressing 1-2 cups [id number] veggies Write down in a notebook with [...] 0.09(L) 0.27 - 4.20 mcIU/mL [facility] Comment: Reference Interval (mcIU/mL): Females: ??First Trimester: 0.23-3.88 ??Second Trimester: 0.22-3.90 ??Third Trimester: 0.44-4.66 Blood 10/16/2022 2:27 PM EST 10/16/2022 2:38 PM EST Narrative Resulting Agency Comment Spec In Lab Mark Anthony Watts MD CHEMISTRY ORDERAB LES [facility] [place] [place] [address] * (ABNORMAL) Thyroglobulin (10/16/2022 2:27 PM EST) Thyroglobulin 0.1(L) 1.3 - 31.8 ng/mL [facility] Comment: INTERPRETIVE INFORMATION: Thyroglobulin, Serum or Plasma Specimens negative for thyroglobulin antibodies (TgAb) are tested for thyroglobulin (Tg) by chemiluminescent immunoassay (MANOHAR) using the [employer] [place] Access DxI method. Specimens with TgAb results [...] <0.9 0.0 - 4.0 IU/mL [facility] Comment: INTERPRETIVE INFORMATION: Thyroglobulin Antibody A value of 4.0 IU/mL or less indicates a negative result for thyroglobulin antibodies. The Thyroglobulin Antibody assay is being performed using the [employer] [place] Access DxI method. Please note that as 06/28/22 this testing is performed at [facility]. This change is associated with a change in testing method and reference intervals. Values from other methods may not correlate with this method. Please review the results of this test in assocaition with the posted reference intervals. Thyroglobulin by LC-MS/MS Not Applicable 1.3 - 31.8 ng/mL [facility] Comment: INTERPRETIVE INFORMATION: Thyroglobulin by LC-MS/MS, Serum/Plasma Lower limit of detection for Thyroglobulin by LC-MS/MS is 0.5 ng/mL. This test was developed and its performance characteristics determined by [facility]. It has not been cleared or approved by the US Food and Drug Administration. This test was performed in a CLIA certified laboratory and is intended for clinical purposes. Performed By: [facility] [address] [place] [address] Nuclear Security Officer: David Easley MD, PhD Blood 10/16/2022 2:27 PM EST 10/16/2022 3:22 PM EST Narrative Resulting Agency Comment Spec In Lab Mark Anthony Watts MD LAB SEND OUT JOLIE ANDRESCANDELARIA [facility] [place] [address] * (ABNORMAL) Hemoglobin A1c (10/16/2022 2:27 PM EST) Hemoglobin A1c 6.0(H) 4.3 - 5.6 % [facility] Comment: Reference Range: 4.3 - 5.6% [...] Mellitus, Diabetes Care 2013; 36: Suppl. 1, M27-22 Estimated Average Glucose 126 mg/dL [facility] Comment: eAG equivalents for HbA1c percentages: [...] into estimated average glucose values. ??Diabetes Care 2008:31(8):0666-5183. Blood 10/16/2022 2:27 PM EST 10/16/2022 2:38 PM EST Narrative Resulting Agency Comment Spec In Lab Mark Anthony Watts MD CHEMISTRY ORDERAB LES [facility] [place] [address] * (ABNORMAL) Basic Metabolic Panel (non-fasting) (10/16/2022 2:27 PM EST) Glucose 92 65 - 199 mg/dL [facility] Comment:Diabetes: >=200 mg/d L plus symptoms Blood Urea Nitrogen 13 8 - 18 mg/dL [facility] Creatinine 1.22(H) 0.70 - 1.20 mg/dL [facility] Sodium 138 135 - 145 mmol/L [facility] Potassium 4.8 3.5 - 5.0 mmol/L [facility] Comment: Please note: ??Patients with WBC >100,000 may have falsely elevated Potassium levels. ??For accurate Potassium quantification in these patients send serum separator tube (gold top) for subsequent determinations. ??Contact the Clinical Chemistry Laboratory if there are any questions. Chloride 103 98 - 107 mmol/L [facility] Carbon Dioxide 24 22 - 31 mmol/L [facility] Anion Gap 11 5 - 15 mmol/L [facility] Calcium 9.9 8.5 - 10.5 mg/dL [facility] Est Glomerular Filtration Rate 54(L) >=60 mL/min/1. 73 m?? [facility] Comment: This patient's estimated GFR was [...] MD CHEMISTRY ORDERAB LES Performing Organization Address City/State/[facility] Co de Phone Number [facility] [place] [address] documented in this encounter Visit Diagnoses Diagnosis Thyroid cancer Malignant neoplasm of thyroid gland Hypothyroidism, postsurgical Postsurgical hypothyroidism PCOS (polycystic ovarian syndrome) Polycystic ovaries Prediabetes Other abnormal glucose Vitamin D insufficiency Unspecified vitamin D deficiency documented in this encounter Care Teams Administrative Clerk Relationship Specialty Start Date End Date Brittany Muhammad DO [address] [place] [address] PCP - General Family Medicine 01/23/19 documented as of this encounter
--- OUTSIDE RECORDS SUMMARY | 2024-07-18 02:12 | XMS_ITS | Encounter Summary ---
Author Organization [facility] Address [facility] [place] [address] Care Team Providers Care Tax Revenue Officer Name Role Phone RubioAsmita reynoldsjs Garcia DO Primary Care Provider +1- [phone] Encounter Details Date Type Department Care Team (Latest Contact Info) Description 03/18/2021 2:00 PM EDT Office [place] [address] Mark Anthony Watts MD [facility] [place] [address] Thyroid cancer; Hypothyroidism, postsurgical; Menstrual periods irregular; [...] encounter Patient Instructions * Patient Instructions* Mark Antohny Watts MD - 03/18/2021 2:00 PM EDT [...] Clinic Name: Genie Alejandre : 1975 PCP: Brittany Muhammad DO Provided by: Mark Anthony Watts MD, PhD, FACE, FACP Date: 06/22/20 Reason for visit: Endocrine visit: Thyroid cancer, PCOS and prediabetes (A1c 6% on 06/18/20). Pt used to see Dr. hKanna and me at initial Endocrine visit on 01/24/20 and was transferred under my care directly since 06/22/20. She still has residual Tg at a low level of 0.6 and recent US at [facility] on 10/05/20 showed a midline hypoechoic lesion of 0.8x0.5x0.7 cm => will recheck US and do FNA washout Tg if possible. HPI: Geine Alejandre is a 45 y.o. 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 Use [...] 3 ??? fluticasone propionate (FLONASE) 50 mcg/actuation [place], Suspension INSTILL 1 SPRAY INTO EACH NOSTRIL [...] of the neck were obtained using a Genelux Flex Focus 400 US machine and an [...] cm (previously 0,8x0.5x0.7 cm on 10/05/20 at [facility]). 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 Mark Anthony Watts MD, PhD, FACE, [...] Follow up with sleep lab at [facility] regarding treatment of sleep apnea food choices [...] 1/4 avocado, 1-2 tbsp dressing 1-2 cups [id number] veggies Write down in a notebook with [...] 25 OH 48 21 - 100 ng/mL [facility] Vit D Interp Sufficient [facility] Blood 03/18/2021 3:13 PM EDT 03/18/2021 3:41 PM EDT Narrative Resulting Agency Comment Spec In Lab Mark Anthony Watts MD CHEMISTRY ORDERAB LES [facility] [place] [address] * Follicle Stimulating Hormone (03/18/2021 3:13 PM EDT) Follicle Stimulating Hormone 0.5 mlU/ML [facility] Comment: Reference Ranges Male: ? 1.5-12.4 mIU/mL Female ?? Follicular: ?3.5-12.5 mIU/mL ?? Ovulation: ? 4.7-21.5 mIU/mL ?? Luteal: ?1.7-7.7 mIU/mL ?? Postmenopausal: ?25.8-134.8 mIU/mL Blood 03/18/2021 3:13 PM EDT 03/18/2021 3:41 PM EDT Narrative Resulting Agency Comment Spec In Lab Mark Anthony Watts MD CHEMISTRY ORDERAB LES Performing Organization Address City/[facility]/ZIP Co de Phone Number [facility] [place] [address] * TSH (03/18/2021 3:13 PM EDT) Thyroid Stimulating Hormone 0.40 0.27 - 4.20 mcIU/mL [facility] Blood 03/18/2021 3:13 PM EDT 03/18/2021 3:41 PM EDT Narrative Resulting Agency Comment Spec In Lab Mark Anthony Watts MD CHEMISTRY ORDERAB LES Performing Organization Address [facility] Co de Phone Number [facility] [place] [address] * Thyroglobulin (03/18/2021 3:13 PM EDT) Thyroglobulin <0.2 <=54.9 ng/mL [facility] Thyroglob Ab <20.0 0.0 - 40.0 IU/mL [facility] Blood 03/18/2021 3:13 PM EDT 03/21/2021 7:22 AM EDT Narrative Resulting Agency Comment Spec In Lab Mark Anthony Watts MD LAB SEND OUT ORDE RABLES Performing Organization Address City/[facility]/ZIP Co de Phone Number [facility] [place] [address] * Fine Needle Aspirate Thyroglobulin (03/18/2021 2:29 PM EDT) FNA Thyroglobulin (QST) <0.1 ng/mL [facility] Comment: Negative: < or = 1.0 [...] or absence of disease. 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 [facility] Fine Needle Aspirate 03/18/2021 2:29 PM EDT 03/18/2021 4:09 PM EDT Mark Anthony Watts MD LAB SEND OUT JOLIE CARUSO [facility] Organization Address City/State/ZIP Co de Phone Number [facility] [place] [address] documented in this encounter Visit Diagnoses Diagnosis Thyroid cancer Malignant neoplasm of thyroid gland Hypothyroidism, postsurgical Postsurgical hypothyroidism Menstrual periods irregular Irregular menstrual cycle PCOS (polycystic ovarian syndrome) Polycystic ovaries Prediabetes Other abnormal glucose Vitamin D insufficiency Unspecified vitamin D deficiency documented in this encounter Care Teams Tax Revenue Officer Relationship Specialty Start Date End Date Brittany Muhammad DO [address] [place] [place] [address] PCP - General Family Medicine 01/23/19 documented as of this encounter
--- OUTSIDE RECORDS SUMMARY | 2024-07-18 02:12 | XMS_ITS | Encounter Summary ---
Author Organization [facility] [place] [address] Care Team Providers Care Sports Commentator Name Role Phone Sabina Brittanyjs Garcia DO Primary Care Provider +1- [phone] Encounter Details Date Type Department Care Team (Late Contact Info) Description 11/18/2020 5:30 PM EST Notes Only Weight and Wellness at [address] [address] Arrived Social History Tobacco Use Types Packs/Day [...] up with sleep lab at [facility] regarding treatment of sleep apnea [...] 1/4 avocado, 1-2 tbsp dressing 1-2 cups [id number] veggies Write down in a notebook with [...] on filedocumented in this encounter Care Teams Sports Commentator Relationship Specialty Start Date End Date Brittany Muhammad DO [address] [place] [address] PCP - General Family Medicine 01/23/19 documented as of this encounter
--- OUTSIDE RECORDS SUMMARY | 2024-07-18 02:12 | XMS_ITS | Encounter Summary ---
Author Organization [facility] Address [facility] [place] [address] Care Team Providers Care Slide Fastener Chain Assembler Name Role Phone MurielmagdysilvianoBrittany reynolds Primary Care Provider +1- [phone] Reason for Visit * Reason Onset Date Comments Medication Refill 01/10/2021 Encounter Details Date Type Department Care Team (Late st Contact Info) Description 01/10/2021 Refill Weight and Wellness at [address] [address] Crystal Holley, [facility] DR [facility] [place] [address] Insulin resistance; Class 3 severe obesity with [...] 1/4 avocado, 1-2 tbsp dressing 1-2 cups [id number] veggies Write down in a notebook with [...] type documented in this encounter Care Teams Slide Fastener Chain Assembler Relationship Specialty Start Date End Date Brittany Muhammad DO [address] [place] [address] PCP - General Family Medicine 01/23/19 documented as of this encounter
--- OUTSIDE RECORDS SUMMARY | 2024-07-18 02:12 | XMS_ITS | Encounter Summary ---
Author Organization [facility] Address [facility] [place] [address] Care Team Providers Care Brazer Electronic Name Role Phone Brittany Muhammad DO Primary Care Provider +1- [phone] Reason for Visit * Consultation (Routine) - Closed Specialty Diagnoses / Procedures Referred By Cash reese Referred To Contact Hematology and Oncology Diagnoses Hypothyroidism, unspecified Malignant neoplasm of thyroid gland Polycystic ovarian syndrome Elevated white blood cell count, unspecified Brittany Muhammad DO [address] [place] [address] St Hem Onc Office [address] [place] [address] Referral ID Status Reason Start Date Expiration Date V isits Requested Visits Authorized [id number] Closed Consult, Test & Treat Connection [facility] PCP Updated and/or Approved 12/21/2020 12/21/2021 6 6 Encounter Details Date Type Department Care Team (Late st Contact Info) Description 02/23/2021 3:00 PM EDT Office Visit Hematology/Oncology at [address] [address] Thalia Flanagan MD [facility] DR HEMATOLOGY [place] [address] Leukocytosis, unspecified type Social History Tobacco Use [...] - 02/23/2021 3:00 PM EDT Hematology Clinic [place] [id number] NEW PATIENT EVALUATION Patient Active Problem List [...] azelastine (ASTELIN) 137 mcg (0.1 %) Aerosol, [place] 1 spray by Nasal route daily. Use [...] 3 ??? fluticasone propionate (FLONASE) 50 mcg/actuation [place], Suspension INSTILL 1 SPRAY INTO EACH NOSTRIL [...] at the labs she has had at [facility], she has had similar values with a [...] This note was written or modified using [employer] voice recognition software. The final note was [...] 1/4 avocado, 1-2 tbsp dressing 1-2 cups [id number] veggies Write down in a notebook with [...] 10.86 Hemoglobin 14.5 Hematocrit 43.5 Platelet 304 Neutrophil Absolute (ANC) - Automated 7 Creatinine 1.1 Blood 02/23/2021 Historical Provider HEMATOLOGY ORDERA BLES documented in this encounter Visit Diagnoses Diagnosis Leukocytosis, unspecified type documented in this encounter Care Teams Brazer Electronic Relationship Specialty Start Date End Date Brittany Muhammad DO [address] [place] [address] PCP - General Family Medicine 01/23/19 documented as of this encounter
--- OUTSIDE RECORDS SUMMARY | 2024-07-18 02:12 | XMS_ITS | Encounter Summary ---
Author Organization [facility] Address [facility] [place] [address] Care Team Providers Care Securities Counselor Name Role Phone Brittany Muhammad DO Primary Care Provider +1- [phone] Encounter Details Date Type Department Care Team (Late st Contact Info) Description 07/14/2021 Orders Only Weight and Wellness at [address] [address] Joan Guzman MD [facility] DR [facility] [place] [address] Class 3 severe obesity with serious comorbidity [...] 1/4 avocado, 1-2 tbsp dressing 1-2 cups [id number] veggies Write down in a notebook with [...] a rainy day activity Lifestyle No Kathy Perze RD Note: Will send list of yoga [...] glucose documented in this encounter Care Teams Securities Counselor Relationship Specialty Start Date End Date Brittany Muhammad DO [address] [place] [address] PCP - General Family Medicine 01/23/19 documented as of this encounter
--- OUTSIDE RECORDS SUMMARY | 2024-07-18 02:12 | XMS_ITS | Encounter Summary ---
Author Organization [facility] Address [facility] [place] [address] Care Team Providers Care Outside Sales Consultant Name Role Phone Brittany Muhammad DO Primary Care Provider +1- [phone] Reason for Visit * Reason Comments Medication Refill Encounter Details Date Type Department Care Team (Late st Contact Info) Description 06/16/2021 Refill [place] [address] Mark Anthony Watts MD [facility] [place] [address] Social History Tobacco Use Types Packs/Day Years [...] 021 11:55 AM EDT) No Crystal Holley, HAND SCREEN PRINTER Note: Continue metformin 1000mg in the evening [...] 1/4 avocado, 1-2 tbsp dressing 1-2 cups [id number] veggies Write down in a notebook with [...] on filedocumented in this encounter Care Teams Outside Sales Consultant Relationship Specialty Start Date End Date Brittany Muhammad DO [address] [place] [address] PCP - General Family Medicine 01/23/19 documented as of this encounter
--- OUTSIDE RECORDS SUMMARY | 2024-07-18 02:12 | XMS_ITS | Encounter Summary ---
Author Organization [facility] [place] [address] Care Team Providers Care Clinical Informatics Educator Name Role Phone Sabina Brittany Jose BARRETO Primary Care Provider +1- [phone] Encounter Details Date Type Department Care Team (Late st Contact Info) Description 01/17/2021 Telephone Weight and Wellness at [address] [address] Kathryn Bashir, CHIO Social History Tobacco Use [...] Notes * Telephone Encounter - Kathryn Bashir LINER INSTALLER - 01/17/2021 1:54 PM EDT [facility] Core Java Engineer Pre-telemedicine Visit Phone Note Genie Alejandre 1975 [x] Patient was not reached: [] No working phone [] Not able to leave message [x] Message left withvisit info/call [phone] [] ZOOM link sent if no MyDH [] Patient was reached and the following information was reviewed/obtained per protocol: [] Confirmed patient name and date of [] Confirmed address where patient will be at time of call Patient is in [] [place] [] [place] [] Other: [address] [facility] [address] [facility] [address] [] Confirmed best number to be reached [...] Yes: [] Labs/vitals requested [] labs/vitals scanned (field secretary) and entered (RN) [] Requested 24 hour diet recall [] Other information or concerns: Interested in [facility] QI project [] No [] Yes [...] Follow up with sleep lab at [facility] regarding treatment of sleep apnea food choices [...] 1/4 avocado, 1-2 tbsp dressing 1-2 cups [id number] veggies Write down in a notebook with [...] filedocumented in this encounter Care Teams Clinical Informatics Educator Relationship Specialty Start Date End Date Brittany Muhammad DO [address] [place] [address] PCP - General Family Medicine 01/23/19 documented as of this encounter
--- OUTSIDE RECORDS SUMMARY | 2024-07-18 02:12 | XMS_ITS | Encounter Summary ---
Author Organization [facility] Address [facility] [place] [address] Care Team Providers Care Community Health Worker Name Role Phone Brittany Muhammad Primary Care Provider +1- [phone] Reason for Visit * Reason Onset Date Comments Medication Refill 06/16/2021 Encounter Details Date Type Department Care Team (Late st Contact Info) Description 06/16/2021 Refill [place] [address] Mark Anthony Watts MD [facility] [place] [address] Social History Tobacco Use Types Packs/Day Years [...] 021 11:55 AM EDT) No Crystal Holley, OFFICIAL GREETER Note: Continue metformin 1000mg in the evening [...] 1/4 avocado, 1-2 tbsp dressing 1-2 cups [id number] veggies Write down in a notebook with [...] on filedocumented in this encounter Care Teams Community Health Worker Relationship Specialty Start Date End Date Brittany Muhammad DO [address] [place] [address] PCP - General Family Medicine 01/23/19 documented as of this encounter
--- OUTSIDE RECORDS SUMMARY | 2024-07-18 02:12 | XMS_ITS | Encounter Summary ---
Author Organization [facility] Address [facility] [place] [address] Care Team Providers Care Retail Services Professional Name Role Phone MurielBrittany nieves Primary Care Provider +1- [phone] Reason for Visit * Reason Comments Medication Refill Encounter Details Date Type Department Care Team (Late st Contact Info) Description 09/13/2020 Refill Weight and Wellness at [address] [address] Crystal Holley, PREVENTION SPECIALIST [facility] [address] Insulin resistance; Class 3 severe obesity with [...] 1/4 avocado, 1-2 tbsp dressing 1-2 cups [id number] veggies Write down in a notebook with [...] type documented in this encounter Care Teams Retail Services Professional Relationship Specialty Start Date End Date Brittany Muhammad DO [address] [place] [address] PCP - General Family Medicine 01/23/19 documented as of this encounter
--- OUTSIDE RECORDS SUMMARY | 2024-07-18 02:12 | XMS_ITS | Encounter Summary ---
Author Organization [facility] [place] [address] Care Team Providers Care Geospatial Image Analyst Name Role Phone Sabina Brittanyjs Garcia DO Primary Care Provider +1- [phone] Encounter Details Date Type Department Care Team (Late st Contact Info) Description 02/16/2021 Telephone Weight and Wellness at [address] [address] Kathryn Bashir, CHIO Social History Tobacco Use [...] PM EDT [facility] Employee Services Manager Pre-telemedicine Visit Phone Note Genie Alejandre 1975 [] Patient was not reached: [] No working phone [] Not able to leave message [] Message left with visit info/call [phone] [] ZOOM link sent if no MyDH [] Patient was reached and the following information was reviewed/obtained per protocol: [] Confirmed patient name and date of [] Confirmed address where patient will be at time of call Patient is in [] [place] [] [place] [] Other: [address] [facility] [address] [facility] [address] [] Confirmed best number to be reached [...] Yes: [] Labs/vitals requested [] labs/vitals scanned (service secretary) and entered (RN) [] Requested 24 hour diet recall [] Other information or concerns: Interested in [facility] QI project [] No [] Yes [...] night Follow up with sleep lab at [facility] regarding treatment of sleep apnea [...] 1/4 avocado, 1-2 tbsp dressing 1-2 cups [id number] veggies Write down in a notebook with [...] on filedocumented in this encounter Care Teams Geospatial Image Analyst Relationship Specialty Start Date End Date Brittany Muhammad DO [address] [place] [address] PCP - General Family Medicine 01/23/19 documented as of this encounter
--- OUTSIDE RECORDS SUMMARY | 2024-07-18 02:12 | XMS_ITS | Encounter Summary ---
Author Organization [facility] [place] [address] Care Team Providers Care Test Case Developer Name Role Phone SabianBrittany Jose BARRETO Primary Care Provider +1- [phone] Encounter Details Date Type Department Care Team (Late st Contact Info) Description 12/16/2020 5:30 PM EDT Notes Only Weight and Wellness at [address] [phone] Arrived Social History Tobacco Use Types Packs/Day [...] on track( 021 3:19 PM EDT) No Crsytal Holley APRN Note: Try to stay up [...] 1/4 avocado, 1-2 tbsp dressing 1-2 cups [id number] veggies Write down in a notebook with [...] on filedocumented in this encounter Care Teams Test Case Developer Relationship Specialty Start Date End Date Brittany Muhammad DO [address] [place] [address] PCP - General Family Medicine 01/23/19 documented as of this encounter
--- OUTSIDE RECORDS SUMMARY | 2024-07-18 02:12 | XMS_ITS | Encounter Summary ---
[place] [address] Care Team Providers Care Commissioning Engineer Name Role Phone Brittany Muhammad DO Primary Care Provider +1- [phone] Reason for Referral * Consultation (Routine) - Closed Specialty Diagnoses / Procedures Referred By Cash reese Referred To Contact Nephrology Diagnoses Disorder of kidney and ureter Essential hypertension Brittany Muhammad DO [address] [place] [address] [facility] [address] [place] [phone] Referral ID Status Reason Start Date Expiration Date V isits Requested Visits Authorized [id number] Closed Consult, Test & Treat PCP Updated and/or Approved 03/31/2022 03/31/2023 6 6 Encounter Details Date Type Department Care Team (Latest Contact Info) Description 03/31/2022 Transcribe Orders eDH Incoming Referrals [phone] Brittany Muhammad DO [address] [place], [place] [id number] Disorder of kidney and ureter; Essential hypertension [...] Follow up with sleep lab at [facility] regarding treatment of sleep apnea food [...] 1/4 avocado, 1-2 tbsp dressing 1-2 cups [id number] veggies Write down in a notebook with [...] hypertension documented in this encounter Care Teams Commissioning Engineer Relationship Specialty Start Date End Date Brittany Muhammad DO [address] [place] [address] PCP - General Family Medicine 01/23/19 documented as of this encounter
--- OUTSIDE RECORDS SUMMARY | 2024-07-18 02:12 | XMS_ITS | Encounter Summary ---
Author Organization [facility] [place] [address] Care Team Providers Care Injection Molder Name Role Phone MurielmagdysilvianoBrittany reynolds Primary Care Provider +1- [phone] Encounter Details Date Type Department Care Team (Late st Contact Info) Description 08/19/2020 5:30 PM EST Notes Only Weight and Wellness at [address] [phone] Social History Tobacco Use Types Packs/Day Years [...] up with sleep lab at [facility] regarding treatment of sleep apnea [...] 1/4 avocado, 1-2 tbsp dressing 1-2 cups [id number] veggies Write down in a notebook with [...] on filedocumented in this encounter Care Teams Injection Molder Relationship Specialty Start Date End Date Brittany Muhammad DO [address] [place] [address] PCP - General Family Medicine 01/23/19 documented as of this encounter
--- OUTSIDE RECORDS SUMMARY | 2024-07-18 02:12 | XMS_ITS | Encounter Summary ---
Author Organization [facility] [place] [address] Care Team Providers Care Stitcher Feeder Name Role Phone Sabina Brittanyjs Garcia DO Primary Care Provider +1- [phone] Encounter Details Date Type Department Care Team (Late st Contact Info) Description 12/02/2020 5:30 PM EST Notes Only Weight and Wellness at [address] [phone] Social History Tobacco Use Types Packs/Day Years [...] 1/4 avocado, 1-2 tbsp dressing 1-2 cups [id number] veggies Write down in a notebook with [...] on filedocumented in this encounter Care Teams Stitcher Feeder Relationship Specialty Start Date End Date Brittany Muhammad DO [address] [place] [address] PCP - General Family Medicine 01/23/19 documented as of this encounter
--- OUTSIDE RECORDS SUMMARY | 2024-07-18 02:12 | XMS_ITS | Encounter Summary ---
Author Organization [facility] Address [facility] [place] [address] Care Team Providers Care Day Care Aide Name Role Phone Brittany Muhammad DO Primary Care Provider +1- [phone] Reason for Visit * Reason Comments Medication Refill Encounter Details Date Type Department Care Team (Late st Contact Info) Description 07/26/2021 Refill Weight and Wellness at [address] [phone] Joan Guzman MD [facility] DR [facility] [place] [address] Class 3 severe obesity with serious comorbidity [...] night Follow up with sleep lab at [facility] regarding treatment of sleep apnea food [...] 1/4 avocado, 1-2 tbsp dressing 1-2 cups [id number] veggies Write down in a notebook with [...] glucose documented in this encounter Care Teams Day Care Aide Relationship Specialty Start Date End Date Brittany Muhammad DO [address] [place] [place] [address] PCP - General Family Medicine 01/23/19 documented as of this encounter
--- OUTSIDE RECORDS SUMMARY | 2024-07-18 02:12 | XMS_ITS | Encounter Summary ---
Author Organization [facility] Address [facility] [place] [address] Care Team Providers Care Membership Counselor Name Role Phone MurielmagdysilvianoBrittany reynolds Primary Care Provider +1- [phone] Encounter Details Date Type Department Care Team (Latest Contact Info) Description 04/14/2021 9:30 AM EDT TH Visit (TeleHealth) Weight and Wellness at [address] [phone] Crystal Holley, BAGGAGE SECURITY CHECKER [facility] DR AMELIE [facility] [address] Class 3 severe obesity due to excess [...] * Patient Instructions* Crystal Holley Jose Luis, BAGGAGE SECURITY CHECKER - 04/14/2021 9:30 AM EDT From our [...] azelastine (ASTELIN) 137 mcg (0.1 %) Aerosol, [place] 1 spray by Nasal route daily. Use [...] mouth daily. fluticasone propionate (FLONASE) 50 mcg/actuation [place], Suspension INSTILL 1 SPRAY INTO EACH NOSTRIL [...] APRN - 04/14/2021 9:30 AM EDT [facility] Visit Patient provided verbal consent prior to initiation of this telemedicine encounter and expressed understanding that the telemedicine visit may be billed similar to a clinic visit, pt was seen while at her home in [facility] I spent a total of 40 minutes [...] walking- likes to take her dog to TRA with friends. . She is under a lot of stress with her grandmother who fell and had to be moved into a fci,she goes to see her regularly and she [...] / interim records including notes and labs [facility] Followup Responses 02/25/2020 [facility] - Readiness [...] Sleepin-8 hours, still planning to follow with [facility] sleep lab but was put [...] 1/4 avocado, 1-2 tbsp dressing 1-2 cups [id number] veggies Write down in a notebook with [...] X documented in this encounter Care Teams Membership Counselor Relationship Specialty Start Date End Date Brittany Muhammad DO [address] [place] [address] PCP - General Family Medicine 01/23/19 documented as of this encounter
--- OUTSIDE RECORDS SUMMARY | 2024-07-18 02:12 | XMS_ITS | Encounter Summary ---
Author Organization [facility] Address [facility] [place] [address] Care Team Providers Care Drainage Inspector Name Role Phone MurielmagdysilvianoBrittany reynolds Primary Care Provider +1- [phone] Reason for Visit * Reason Onset Date Comments Medication Refill 11/05/2020 Encounter Details Date Type Department Care Team (Late st Contact Info) Description 11/05/2020 Refill Weight and Wellness at [address] [phone] Crystal Holley, EXTERMINATOR [facility] DR [facility] [address] Insulin resistance; Class 3 severe obesity with [...] 1/4 avocado, 1-2 tbsp dressing 1-2 cups [id number] veggies Write down in a notebook with [...] type documented in this encounter Care Teams Drainage Inspector Relationship Specialty Start Date End Date Brittany Muhammad DO [address] [place] [address] PCP - General Family Medicine 01/23/19 documented as of this encounter
--- OUTSIDE RECORDS SUMMARY | 2024-07-18 02:12 | XMS_ITS | Encounter Summary ---
Author Organization [facility] [place] [address] Care Team Providers Care Medicaid Service Coordinator Name Role Phone Sabina Brittanyjs Garcia DO Primary Care Provider +1- [phone] Encounter Details Date Type Department Care Team (Late st Contact Info) Description 11/04/2020 5:30 PM EST Notes Only Weight and Wellness at [address] [address] Arrived Social History Tobacco Use Types Packs/Day [...] 1/4 avocado, 1-2 tbsp dressing 1-2 cups [id number] veggies Write down in a notebook with [...] on filedocumented in this encounter Care Teams Medicaid Service Coordinator Relationship Specialty Start Date End Date Brittany Muhammad DO [address] [place] [address] PCP - General Family Medicine 01/23/19 documented as of this encounter
--- OUTSIDE RECORDS SUMMARY | 2024-07-18 02:12 | XMS_ITS | Encounter Summary ---
Author Organization [facility] [place] [address] Care Team Providers Care Clinical Care Manager Name Role Phone SabinaAsmitajs Garcia DO Primary Care Provider +1- [phone] Encounter Details Date Type Department Care Team (Late st Contact Info) Description 10/21/2020 5:30 PM EST Notes Only Weight and Wellness at [address] [phone] Social History Tobacco Use Types Packs/Day Years [...] up with sleep lab at [facility] regarding treatment of sleep apnea food choices [...] 1/4 avocado, 1-2 tbsp dressing 1-2 cups [id number] veggies Write down in a notebook with [...] filedocumented in this encounter Care Teams Clinical Care Manager Relationship Specialty Start Date End Date Brittany Muhammad DO [address] [place] [address] PCP - General Family Medicine 01/23/19 documented as of this encounter
--- OUTSIDE RECORDS SUMMARY | 2024-07-18 02:12 | XMS_ITS | Encounter Summary ---
Author Organization [facility] [place] [address] Care Team Providers Care Injection Mold Technician Name Role Phone Sabina Brittanyjs Garcia DO Primary Care Provider +1- [phone] Encounter Details Date Type Department Care Team (Late st Contact Info) Description 08/17/2020 Telephone Weight and Wellness at [address] [phone] Cindy Zee Social History Tobacco Use Types [...] 1/4 avocado, 1-2 tbsp dressing 1-2 cups [id number] veggies Write down in a notebook with [...] filedocumented in this encounter Care Teams Injection Mold Technician Relationship Specialty Start Date End Date Brittany Muhammad DO [address] [place] [place] [address] PCP - General Family Medicine 01/23/19 documented as of this encounter
--- OUTSIDE RECORDS SUMMARY | 2024-07-18 02:12 | XMS_ITS | Encounter Summary ---
Author Organization [facility] Address [facility] [place] [address] Care Team Providers Care Lead Advisor Name Role Phone SabinaAsmitajs Garcia DO Primary Care Provider +1- [phone] Encounter Details Date Type Department Care Team (Latest Contact Info) Description 10/16/2022 3:30 PM EST Office [place] [address] Mark Anthony Watts MD [facility] [place] [address] Thyroid cancer; Hypothyroidism, postsurgical; PCOS (polycystic ovarian [...] Thyroid cancer - microPTC 0.17 cm, right [id number] Stage 1 microPTC s/p Total thyroidectomy in [...] standing order was placed in -H and [facility] lab. US studies showed a persistent but [...] lab for TSH in 3 mo at [facility] lab. - Adjust T4 dose PRN. Goal [...] of the neck were obtained using a [employer] Focus 400 US machine and an HFL38/15-6 [...] and 0.8x0.5x0.7 cm on 10/05/20 at [facility]). Lateral neck: Examination of bilateral levels II [...] level of 0.5-0.6 and US at [facility] 10/05/20 showed a midline hypoechoic lesion of [...] Ca 9.6 10/05/20 : US at [facility] showed a midline hypoechoic lesion of 0.8x0.5x0.7 cm 12/15/20: TSH 0.34, 25vitamin D 30.3 borderline low (normal 30-100) 02/23/21: TSH 1.1, A1c 5.9%, no Tg was done 03/18/21: TSH 0.4, 25vitamin D 48, FSH 0.5 (+block piler periods on BCPs with night sweats and [...] azelastine (ASTELIN) 137 mcg (0.1 %) Aerosol, [place] 1 spray by Nasal route daily. Use in each nostril as directed ??? fluticasone propionate (FLONASE) 50 mcg/actuation [place], Suspension INSTILL 1 SPRAY INTO EACH NOSTRIL [...] (5' 2) Wt 109.8 kg (242 lb) QeA800% BMI 44.26 kg/m?? GENERAL: A+O x 3; [...] Thyroid cancer - microPTC 0.17 cm, right [id number] Stage 1 microPTC s/p Total thyroidectomy in [...] standing order was placed in [facility] and [facility] lab. US studies showed a persistent but [...] lab for TSH in 3 mo at [facility] lab. - Adjust T4 dose PRN. Goal [...] 1/4 avocado, 1-2 tbsp dressing 1-2 cups [id number] veggies Write down in a notebook with [...] EST) Glucose 92 65 - 199 mg/dL [facility] Comment:Diabetes: >=200 mg/d L plus symptoms Blood Urea Nitrogen 13 8 - 18 mg/dL [facility] Creatinine 1.22(H) 0.70 - 1.20 mg/dL [facility] Sodium 138 135 - 145 mmol/L [facility] Potassium 4.8 3.5 - 5.0 mmol/L [facility] Comment: Please note: ??Patients with WBC >100,000 may have falsely elevated Potassium levels. ??For accurate Potassium quantification in these patients send serum separator tube (gold top) for subsequent determinations. ??Contact the Clinical Chemistry Laboratory if there are any questions. Chloride 103 98 - 107 mmol/L [facility] Carbon Dioxide 24 22 - 31 mmol/L [facility] Anion Gap 11 5 - 15 mmol/L [facility] Calcium 9.9 8.5 - 10.5 mg/dL [facility] Est Glomerular Filtration Rate 54(L) >=60 mL/min/1. 73 m?? [facility] Comment: This patient's estimated GFR [...] MD CHEMISTRY ORDERAB LES Performing Organization Address City/State/[facility] Co de Phone Number [facility] [place] [address] * (ABNORMAL) Hemoglobin A1c (10/16/2022 2:27 PM EST) Hemoglobin A1c 6.0(H) 4.3 - 5.6 % [facility] Comment: Reference Range: 4.3 - [...] Mellitus, Diabetes Care 2013; 36: Suppl. 1, V29-72 Estimated Average Glucose 126 mg/dL [facility] Comment: eAG equivalents for HbA1c percentages: [...] into estimated average glucose values. ??Diabetes Care 2008:31(8):1416-3654. Blood 10/16/2022 2:27 PM EST 10/16/2022 2:38 PM EST Narrative Resulting Agency Comment Spec In Lab Mark Anthony Watts MD CHEMISTRY ORDERAB LES [facility] [place] [address] * (ABNORMAL) Thyroglobulin (10/16/2022 2:27 PM EST) Thyroglobulin 0.1(L) 1.3 - 31.8 ng/mL [facility] Comment: INTERPRETIVE INFORMATION: Thyroglobulin, Serum or Plasma Specimens negative for thyroglobulin antibodies (TgAb) are tested for thyroglobulin (Tg) by chemiluminescent immunoassay (MANOHAR) using the [employer] Access DxI method. Specimens with TgAb results [...] Thyroglob Ab <0.9 0.0 - 4.0 IU/mL [facility] Comment: INTERPRETIVE INFORMATION: Thyroglobulin Antibody A value of 4.0 IU/mL or less indicates a negative result for thyroglobulin antibodies. The Thyroglobulin Antibody assay is being performed using the [employer] [place] Access DxI method. Please note that as 06/28/22 this testing is performed at [facility]. This change is associated with a change in testing method and reference intervals. Values from other methods may not correlate with this method. Please review the results of this test in assocaition with the posted reference intervals. Thyroglobulin by LC-MS/MS Not Applicable 1.3 - 31.8 ng/mL [facility] Comment: INTERPRETIVE INFORMATION: Thyroglobulin by LC-MS/MS, Serum/Plasma Lower limit of detection for Thyroglobulin by LC-MS/MS is 0.5 ng/mL. This test was developed and its performance characteristics determined by [facility]. It has not been cleared or approved by the [place] Food and Drug Administration. This test was performed in a CLIA certified laboratory and is intended for clinical purposes. Performed By: [facility] [address] [place] [id number] Dog License Officer Supervisor: David Easley MD, PhD Blood 10/16/2022 2:27 PM EST 10/16/2022 3:22 PM EST Narrative Resulting Agency Comment Spec In Lab Mark Anthony Watts MD LAB SEND OUT JOLIE CARUSO [facility] [place] [address] * (ABNORMAL) TSH (10/16/2022 2:27 PM EST) Thyroid Stimulating Hormone 0.09(L) 0.27 - 4.20 mcIU/mL [facility] Comment: Reference Interval (mcIU/mL): Females: ??First Trimester: 0.23-3.88 ??Second Trimester: 0.22-3.90 ??Third Trimester: 0.44-4.66 Blood 10/16/2022 2:27 PM EST 10/16/2022 2:38 PM EST Narrative Resulting Agency Comment Spec In Lab Mark Anthony Watts MD CHEMISTRY ORDERAB LES [facility] [place] [address] documented in this encounter Visit Diagnoses Diagnosis Thyroid cancer Malignant neoplasm of thyroid gland Hypothyroidism, postsurgical Postsurgical hypothyroidism PCOS (polycystic ovarian syndrome) Polycystic ovaries Prediabetes Other abnormal glucose Vitamin D insufficiency Unspecified vitamin D deficiency documented in this encounter Care Teams Lead Advisor Relationship Specialty Start Date End Date Brittany Muhammad DO [address] [facility] [place] [address] PCP - General Family Medicine 01/23/19 documented as of this encounter
--- OUTSIDE RECORDS SUMMARY | 2024-07-18 02:12 | XMS_ITS | Encounter Summary ---
Author Organization [facility] [place] [address] Care Team Providers Care Automobile Appraiser Name Role Phone MurielmagdysilvianoBrittany reynolds Jose BARRETO Primary Care Provider +1- [phone] Encounter Details Date Type Department Care Team (Late st Contact Info) Description 02/18/2021 12:00 PM EDT Notes Only Weight and Wellness at [address] [phone] Arrived Social History Tobacco Use Types Packs/Day [...] 1/4 avocado, 1-2 tbsp dressing 1-2 cups [id number] veggies Write down in a notebook with [...] on filedocumented in this encounter Care Teams Automobile Appraiser Relationship Specialty Start Date End Date Brittany Muhammad DO [address] [place] [address] PCP - General Family Medicine 01/23/19 documented as of this encounter
--- OUTSIDE RECORDS SUMMARY | 2024-07-18 02:12 | XMS_ITS | Encounter Summary ---
Author Organization [facility] [place] [address] Care Team Providers Care Child Care Center Administrator Name Role Phone Sabina Brittanyjs Garcia DO Primary Care Provider +1- [phone] Encounter Details Date Type Department Care Team (Late st Contact Info) Description 11/11/2020 5:30 PM EST Notes Only Weight and Wellness at [address] [phone] Social History Tobacco Use Types Packs/Day Years [...] night Follow up with sleep lab at [facility] regarding treatment of sleep apnea food [...] 1/4 avocado, 1-2 tbsp dressing 1-2 cups [id number] veggies Write down in a notebook with [...] on filedocumented in this encounter Care Teams Child Care Center Administrator Relationship Specialty Start Date End Date Brittany Muhammad DO [address] [place] [address] PCP - General Family Medicine 01/23/19 documented as of this encounter
--- OUTSIDE RECORDS SUMMARY | 2024-07-18 02:12 | XMS_ITS | Encounter Summary ---
Author Organization [facility] Address [facility] [address] [place] [address] Care Team Providers Care Repatcher Name Role Phone MurielmagdysilvianoBrittany reynolds Primary Care Provider +1- [phone] Encounter Details Date Type Department Care Team [...] 1/4 avocado, 1-2 tbsp dressing 1-2 cups [id number] veggies Write down in a notebook with [...] on filedocumented in this encounter Care Teams Repatcher Relationship Specialty Start Date End Date Brittany Muhammad DO [address] [place] [address] PCP - General Family Medicine 01/23/19 documented as of this encounter
--- OUTSIDE RECORDS SUMMARY | 2024-07-18 02:12 | XMS_ITS | Encounter Summary ---
Author Organization [facility] [place] [address] Care Team Providers Care Bolt Header Name Role Phone SabinaAsmitajs Garcia DO Primary Care Provider +1- [phone] Encounter Details Date Type Department Care Team (Late Contact Info) Description 09/16/2020 5:30 PM EST Notes Only Weight and Wellness at [address] [phone] Social History Tobacco Use Types Packs/Day Years [...] medication Lifestyle On track( 11:55 AM EDT) Crysatl Wells APRN Note: Continue metformin 1000mg in [...] up with sleep lab at [facility] regarding treatment of sleep apnea food choices [...] 1/4 avocado, 1-2 tbsp dressing 1-2 cups [id number] veggies Write down in a notebook with [...] on filedocumented in this encounter Care Teams Bolt Header Relationship Specialty Start Date End Date Brittany Muhammad DO [address] [place] [address] PCP - General Family Medicine 01/23/19 documented as of this encounter
--- OUTSIDE RECORDS SUMMARY | 2024-07-18 02:12 | XMS_ITS | Encounter Summary ---
Author Organization [facility] Address [facility] [place] [address] Care Team Providers Care Supervisor Hard Candy Name Role Phone SabinaAsmitajs Garcia DO Primary Care Provider +1- [phone] Reason for Visit * Reason Onset Date Comments Medication Refill 07/13/2021 Encounter Details Date Type Department Care Team (Late st Contact Info) Description 07/13/2021 Refill Weight and Wellness at [address] [phone] Crystal Holley, COLD MOLDING PRESS OPERATOR [facility] DR [facility] [address] Class 3 severe obesity with serious comorbidity [...] night Follow up with sleep lab at [facility] regarding treatment of sleep apnea [...] 1/4 avocado, 1-2 tbsp dressing 1-2 cups [id number] veggies Write down in a notebook with [...] glucose documented in this encounter Care Teams Supervisor Hard Candy Relationship Specialty Start Date End Date Brittany Muhammad DO [address] [place] [address] PCP - General Family Medicine 01/23/19 documented as of this encounter
--- OUTSIDE RECORDS SUMMARY | 2024-07-18 02:12 | XMS_ITS | Encounter Summary ---
Author Organization [facility] Address [facility] [place] [address] Care Team Providers Care Green Marketer Name Role Phone MurielBrittany nieves Primary Care Provider +1- [phone] Reason for Visit * Reason Comments Medication Refill Encounter Details Date Type Department Care Team (Late st Contact Info) Description 11/07/2020 Refill Weight and Wellness at [address] [address] Crystal Holley, CASTINGS DRAFTER [facility] DR AMEL[place] [address] Insulin resistance; Class 3 severe obesity with [...] 1/4 avocado, 1-2 tbsp dressing 1-2 cups [id number] veggies Write down in a notebook with [...] type documented in this encounter Care Teams Green Marketer Relationship Specialty Start Date End Date Brittany Muhammad DO [address] [place] [address] PCP - General Family Medicine 01/23/19 documented as of this encounter
--- OUTSIDE RECORDS SUMMARY | 2024-07-18 02:12 | XMS_ITS | Encounter Summary ---
Author Organization [facility] [place] [address] Care Team Providers Care Earth Boring Machine Operator Name Role Phone Sabina Brittanyjs Garcia DO Primary Care Provider +1- [phone] Encounter Details Date Type Department Care Team (Late Contact Info) Description 09/02/2020 5:30 PM EST Notes Only Weight and Wellness at [address] [address] Social History Tobacco Use Types Packs/Day Years [...] night Follow up with sleep lab at [facility] regarding treatment of sleep apnea food choices / tracking goals Lifestyle On track( 11:17 AM EST) No Ktahy Perez RD Note: Direct substitution to meat: [...] 1/4 avocado, 1-2 tbsp dressing 1-2 cups [id number] veggies Write down in a notebook with [...] on filedocumented in this encounter Care Teams Earth Boring Machine Operator Relationship Specialty Start Date End Date Brittany Muhammad DO [address] [place] [address] PCP - General Family Medicine 01/23/19 documented as of this encounter
--- OUTSIDE RECORDS SUMMARY | 2024-07-18 02:12 | XMS_ITS | Encounter Summary ---
Author Organization [facility] Address [facility] [place] [address] Care Team Providers Care Cooker Sulfate Name Role Phone MurielmagdysilvianoBrittany reynolds Primary Care Provider +1- [phone] Encounter Details Date Type Department Care Team (Late st Contact Info) Description 09/15/2020 Abstract Weight and Wellness at [address] [address] Crystal Holley APRN [facility] DR AMELIE [place] [address] Social History Tobacco Use Types Packs/Day Years [...] Follow up with sleep lab at [facility] regarding treatment of sleep apnea food choices [...] 1/4 avocado, 1-2 tbsp dressing 1-2 cups [id number] veggies Write down in a notebook with [...] on filedocumented in this encounter Care Teams Cooker Sulfate Relationship Specialty Start Date End Date Brittany Muhammad DO [address] [place] [address] PCP - General Family Medicine 01/23/19 documented as of this encounter
--- OUTSIDE RECORDS SUMMARY | 2024-07-18 02:12 | XMS_ITS | Encounter Summary ---
Author Organization [facility] [place] [address] Care Team Providers Care Sharepoint Engineer Name Role Phone Sabina Brittanyjs Garcia DO Primary Care Provider +1- [phone] Encounter Details Date Type Department Care Team (Late st Contact Info) Description 11/25/2020 5:30 PM EST Notes Only Weight and Wellness at [address] [address] Arrived Social History Tobacco Use Types Packs/Day [...] 1/4 avocado, 1-2 tbsp dressing 1-2 cups [id number] veggies Write down in a notebook with [...] on filedocumented in this encounter Care Teams Sharepoint Engineer Relationship Specialty Start Date End Date Brittany Muhammad DO Jacqui[address] [place] [address] PCP - General Family Medicine 01/23/19 documented as of this encounter
--- OUTSIDE RECORDS SUMMARY | 2024-07-18 02:12 | XMS_ITS | Encounter Summary ---
Author Organization [facility] Address [facility] [place] [address] Care Team Providers Care Registrar Museum Name Role Phone MurielBrittany nieves Primary Care Provider +1- [phone] Reason for Visit * Reason Comments Medication Refill Encounter Details Date Type Department Care Team (Late st Contact Info) Description 09/14/2020 Refill Weight and Wellness at [address] [address] Crysatl Holley, LACROSSE COACH [facility] DR AMELIE [place] [address] Insulin resistance; Class 3 severe obesity with [...] night Follow up with sleep lab at [facility] regarding treatment of sleep apnea food [...] 1/4 avocado, 1-2 tbsp dressing 1-2 cups [id number] veggies Write down in a notebook with [...] type documented in this encounter Care Teams Registrar Museum Relationship Specialty Start Date End Date Brittany Muhammad DO [address] [place] [address] PCP - General Family Medicine 01/23/19 documented as of this encounter
--- OUTSIDE RECORDS SUMMARY | 2024-07-18 02:12 | XMS_ITS | Encounter Summary ---
Author Organization [facility] [place] [address] Care Team Providers Care Optical Effects Layout Person Name Role Phone MurielmagdysilvianoBrittany reynolds Jose BARRETO Primary Care Provider +1- [phone] Encounter Details Date Type Department Care Team (Late st Contact Info) Description 10/14/2020 5:30 PM EST Notes Only Weight and Wellness at [address] [address] Arrived Social History Tobacco Use Types Packs/Day [...] 1/4 avocado, 1-2 tbsp dressing 1-2 cups [id number] veggies Write down in a notebook with [...] on filedocumented in this encounter Care Teams Optical Effects Layout Person Relationship Specialty Start Date End Date Brittany Muhammad DO [address] [place] [address] PCP - General Family Medicine 01/23/19 documented as of this encounter
--- OUTSIDE RECORDS SUMMARY | 2024-07-18 02:12 | XMS_ITS | Encounter Summary ---
Author Organization [facility] [place] [address] Care Team Providers Care Belting Cutter Name Role Phone SabinaAsmitajs Garcia DO Primary Care Provider +1- [phone] Encounter Details Date Type Department Care Team (Late st Contact Info) Description 12/30/2020 5:30 PM EDT Notes Only Weight and Wellness at [address] [address] Arrived Social History Tobacco Use Types Packs/Day [...] 1/4 avocado, 1-2 tbsp dressing 1-2 cups [id number] veggies Write down in a notebook with [...] on filedocumented in this encounter Care Teams Belting Cutter Relationship Specialty Start Date End Date Brittany Muhammad DO [address] [place] [place] [address] PCP - General Family Medicine 01/23/19 documented as of this encounter
--- OUTSIDE RECORDS SUMMARY | 2024-07-18 02:12 | XMS_ITS | Encounter Summary ---
Author Organization [facility] [place] [address] Care Team Providers Care Predatory Animal Hunter Name Role Phone Brittany Muhammad DO Primary Care Provider +1- [phone] Reason for Visit * Reason Onset Date Comments Appointment 08/29/2021 Encounter Details Date Type Department Care Team ([facility] Contact Info) Description 08/29/2021 Telephone Weight and Wellness at [address] [address] Apple Teixeira Appointment Social History [...] 1/4 avocado, 1-2 tbsp dressing 1-2 cups [id number] veggies Write down in a notebook with [...] on filedocumented in this encounter Care Teams Predatory Animal Hunter Relationship Specialty Start Date End Date Brittany Muhammad DO [address] [place] [address] PCP - General Family Medicine 01/23/19 documented as of this encounter
--- OUTSIDE RECORDS SUMMARY | 2024-07-18 02:12 | XMS_ITS | Encounter Summary ---
Author Organization [facility] [place] [address] Care Team Providers Care Manager Pacu Name Role Phone SabinaAsmitajs Garcia DO Primary Care Provider +1- [phone] Encounter Details Date Type Department Care Team (Late st Contact Info) Description 09/09/2020 5:30 PM EST Notes Only Weight and Wellness at [address] [address] Social History Tobacco Use Types Packs/Day Years [...] 1/4 avocado, 1-2 tbsp dressing 1-2 cups [id number] veggies Write down in a notebook with [...] filedocumented in this encounter Care Teams Manager Pacu Relationship Specialty Start Date End Date Brittany Muhammad DO [address] [place] [address] PCP - General Family Medicine 01/23/19 documented as of this encounter
--- OUTSIDE RECORDS SUMMARY | 2024-07-18 02:12 | XMS_ITS | Encounter Summary ---
Author Organization [facility] Address [facility] [place] [address] Care Team Providers Care Finisher Machine Name Role Phone Sabina Brittanyjs Garcia DO Primary Care Provider +1- [phone] Encounter Details Date Type Department Care Team (Late st Contact Info) Description 02/25/2021 Tele[place] [phone] Liza Seymour I Social History Tobacco Use [...] 1/4 avocado, 1-2 tbsp dressing 1-2 cups [id number] veggies Write down in a notebook with [...] on filedocumented in this encounter Care Teams Finisher Machine Relationship Specialty Start Date End Date Brittany Muhammad DO [address] [place] [address] PCP - General Family Medicine 01/23/19 documented as of this encounter
--- OUTSIDE RECORDS SUMMARY | 2024-07-18 02:13 | XMS_ITS | Encounter Summary ---
Author Organization [facility] Address [facility] [place] [address] Care Team Providers Care Car Worker Helper Name Role Phone MurielmagdysilvianoBrittany reynolds Primary Care Provider +1- [phone] Encounter Details Date Type Department Care Team (Latest Contact Info) Description 04/16/2020 9:30 AM EDT TH Visit (TeleHealth) Weight and Wellness at [address] [address] [facility] [place] [address] Adult BMI 40.0-44.9 kg/sq m Social History [...] to have a protein (egg, cheese, meat, Bulgarian yogurt)- extra credit if you add fruits/veggies, OK to have a Grain choice (Croatian muffin / toast, etc.) - at your [...] range- reach out to me in [facility] in aweek or 2 and let [...] [facility] regarding treatment of sleep apnea ??? [...] was at home at the following address: [address] [place] [address] Food Trackers: Seems like her intake has [...] 5.7%) Vitals 04/16/2020 04/09/2020 03/30/2020 03/19/2020 Height (Croatian) 62.008 62.008 62.008 62.008 Height (Metric) 157.5 cm 157.5 cm 157.5 cm 157.5 cm Weight (Croatian) 245 lbs 3 oz 246 lbs 5 oz 249 lbs 10 oz 249 lbs 11 oz Weight (Metric) 111.222 kg 111.721 kg 113.218 kg 113.263 kg BMI (Calculated) 44.83 kg/m2 45.03 kg/m2 45.64 kg/m2 45.65 kg/m2 Vitals 02/27/2020 Height (Croatian) 62 Height (Metric) 157.5 cm Weight (Croatian) 260 lbs Weight (Metric) 117.935 kg BMI [...] to have a protein (egg, cheese, meat, Bulgarian yogurt)- extra credit if you add fruits/veggies, OK to have a Grain choice (Croatian muffin / toast, etc.) - at your [...] range- reach out to me in [facility] in aweek or 2 and let [...] [facility] regarding treatment of sleep apnea ??? [...] 1/4 avocado, 1-2 tbsp dressing 1-2 cups [id number] veggies Write down in a notebook with [...] documented in this encounter Care Teams Car Worker Helper Relationship Specialty Start Date End Date Brittany Muhammad DO [address] [place] [address] PCP - General Family Medicine 01/23/19 documented as of this encounter
--- OUTSIDE RECORDS SUMMARY | 2024-07-18 02:13 | XMS_ITS | Encounter Summary ---
Author Organization [facility] [place] [address] Care Team Providers Care Consumer Affairs Director Name Role Phone Sabina Brittanyjs Garcia DO Primary Care Provider +1- [phone] Encounter Details Date Type Department Care Team (Late st Contact Info) Description 04/05/2020 Telephone Weight and Wellness at [address] [phone] Cindy Zee Social History Tobacco Use Types [...] 1/4 avocado, 1-2 tbsp dressing 1-2 cups [id number] veggies Write down in a notebook with [...] on filedocumented in this encounter Care Teams Consumer Affairs Director Relationship Specialty Start Date End Date Brittany Muhammad DO [address] [place] [address] PCP - General Family Medicine 01/23/19 documented as of this encounter
--- OUTSIDE RECORDS SUMMARY | 2024-07-18 02:13 | XMS_ITS | Encounter Summary ---
Author Organization [facility] Address [facility] [place] [address] Care Team Providers Care Aviculturist Name Role Phone MurielBrittany nieves Primary Care Provider +1- [phone] Reason for Visit * Reason Comments Follow-up weight management/ob esity Encounter Details Date Type Department Care Team (Latest Contact Info) Description 06/01/2020 10:30 AM EDT TH Visit (TeleHealth) Weight and Wellness at [address] [address] Crystal Holley, HOOK AND EYE ATTACHER [facility] DR [place] [address] Decreased renal function; Prediabetes; Insulin resistance; Class [...] Patient Instructions * Patient Instructions* Crystal Holley, HOOK AND EYE ATTACHER - 06/01/2020 10:30 AM EDT From our [...] to have a protein (egg, cheese, meat, Kuwaiti yogurt)- extra credit if you add fruits/veggies, OK to have a Grain choice (Burmese muffin / toast, etc.) - at your [...] reach out to me in [facility] in aweek or 2 and [...] [facility] regarding treatment of sleep apnea Medications 06/01/20 [...] APRN - 06/01/2020 10:30 AM EDT D-[facility] Visit Patient provided verbal consent prior to initiation of this telemedicine encounter and expressed understanding that the telemedicine visit may be billed similar to a clinic visit, pt was seen while at her home in [facility] I spent a total of 44 [...] to have a protein (egg, cheese, meat, Kuwaiti yogurt)- extra credit if you add fruits/veggies, OK to have a Grain choice (Burmese muffin / toast, etc.) - at your [...] reach out to me in [facility] in aweek or 2 and [...] [facility]ALTH CENTER regarding treatment of sleep apnea INTERVAL HISTORY / PROGRESS TOWARD GOALS: [x] I reviewed past / interim records including notes and labs [facility] Followup Responses 02/25/2020 [facility] - Readiness [...] Sleepin-8 hours, still planning to follow with [facility] sleep lab but was put off [...] 44 minutes of which were spent in evax-cs-lwnb discussion/counseling re obesity, nutrition and activity as [...] 1/4 avocado, 1-2 tbsp dressing 1-2 cups [id number] veggies Write down in a notebook with [...] type documented in this encounter Care Teams Aviculturist Relationship Specialty Start Date End Date Brittany Muhammad DO [address] [place] [address] PCP - General Family Medicine 01/23/19 documented as of this encounter
--- OUTSIDE RECORDS SUMMARY | 2024-07-18 02:13 | XMS_ITS | Encounter Summary ---
Author Organization [facility] Address [facility] [place] [address] Care Team Providers Care Shoeblack Name Role Phone MurielmagdysilvianoBrittany reynolds Jose BARRETO Primary Care Provider +1- [phone] Encounter Details Date Type Department Care Team (Latest Contact Info) Description 03/22/2020 9:00 AM EDT TH Visit (TeleHealth) Weight and Wellness at [address] [address] [facility] [place] [place] [address] Adult BMI 45.0-49.9 kg/sq m Social History [...] to have a protein (egg, cheese, meat, [place] Citizen yogurt)- extra credit if you add fruits/veggies, OK to have a Grain choice (Bhutanese muffin / toast, etc.) - at your [...] a range- reach out to me in [facility] in aweek or 2 and let [...] was at home at the following address: [address] [place] [phone] Food Trackers: Proteins/carbs/fat?? How to structure, specific food choices. Tried myfitness pal, got frustrated. Used cronometer instead and this was better, plans to continue Activity: Weight Today: Vitals 03/19/2020 02/27/2020 10/24/2019 07/11/2019 Height (Bhutanese) 62.008 62 63 62.000 Height (Metric) 157.5 cm 157.5 cm 160 cm 157.5 cm Weight (Bhutanese) 249 lbs 11 oz 260 lbs 257 [...] to have a protein (egg, cheese, meat, [place] Citizen yogurt)- extra credit if you add fruits/veggies, OK to have a Grain choice (Bhutanese muffin / toast, etc.) - at your [...] a range- reach out to me in [facility] in aweek or 2 and let [...] 1/4 avocado, 1-2 tbsp dressing 1-2 cups [id number] veggies Write down in a notebook with [...] adult documented in this encounter Care Teams Shoeblack Relationship Specialty Start Date End Date Brittany Muhammad DO [address] [place] [address] PCP - General Family Medicine 01/23/19 documented as of this encounter
--- OUTSIDE RECORDS SUMMARY | 2024-07-18 02:13 | XMS_ITS | Encounter Summary ---
Author Organization [facility] [place] [address] Care Team Providers Care Fueler Name Role Phone Sabina Brittanyjs Garcia DO Primary Care Provider +1- [phone] Encounter Details Date Type Department Care Team (Late st Contact Info) Description 03/31/2020 Telephone Weight and Wellness at [address] [phone] Cindy Zee Social History Tobacco Use Types [...] 1/4 avocado, 1-2 tbsp dressing 1-2 cups [id number] veggies Write down in a notebook with [...] on filedocumented in this encounter Care Teams Fueler Relationship Specialty Start Date End Date Brittany Muhammad DO [address] [place] [address] PCP - General Family Medicine 01/23/19 documented as of this encounter
--- OUTSIDE RECORDS SUMMARY | 2024-07-18 02:13 | XMS_ITS | Encounter Summary ---
Author Organization [facility] Address [facility] [place] [address] Care Team Providers Care Shot Blaster Name Role Phone MurielBrittany nieves Primary Care Provider +1- [phone] Reason for Visit * Reason Comments Follow-up weight management Encounter Details Date Type Department Care Team (Latest Contact Info) Description 08/03/2020 10:30 AM EST TH Visit (TeleHealth) Weight and Wellness at [address] [address] Crystal Holley, DATABASES SOFTWARE CONSULTANT [facility] DR AMELIE [place] [address] Class 3 severe obesity with serious comorbidity [...] * Patient Instructions* Crystal Holley Jose Luis, DATABASES SOFTWARE CONSULTANT - 08/03/2020 10:30 AM EST From our [...] 1/4 avocado, 1-2 tbsp dressing 1-2 cups [id number] veggies Write down in a notebook with [...] [facility] of [facility] ??? [...] 70 MG fluticasone propionate (FLONASE) 50 mcg/actuation [place], Suspension INSTILL 1 SPRAY INTO EACH NOSTRIL [...] Progress Notes * Crystal Holley APRN - 08/03/2020 10:30 AM EST D-H [facility] Visit Patient provided verbal consent prior to initiation of this telemedicine encounter and expressed understanding that the telemedicine visit may be billed similar to a clinic visit, pt was seen while at her home in [facility] I spent a total of 30 [...] 1/4 avocado, 1-2 tbsp dressing 1-2 cups [id number] veggies Write down in a notebook with [...] [facility] regarding [facility] of sleep [facility] ??? stress management On track Continue working with therapist to manage stress Deep breathing before bedtime Find some activities/hobbies you enjoy to keep your mind and body busy INTERVAL HISTORY / PROGRESS TOWARD GOALS: [x] I reviewed past / interim records including notes and labs [facility] Followup Responses 02/25/2020 [facility] - [...] Sleepin-8 hours, still planning to follow with [facility] sleep lab but was put off [...] 30 minutes of which were spent in xulz-sf-zfza discussion/counseling re obesity, nutrition and activity as [...] 1/4 avocado, 1-2 tbsp dressing 1-2 cups [id number] veggies Write down in a notebook with [...] type documented in this encounter Care Teams Shot Blaster Relationship Specialty Start Date End Date Brittany Muhammad DO [address] [place] [address] PCP - General Family Medicine 01/23/19 documented as of this encounter
--- OUTSIDE RECORDS SUMMARY | 2024-07-18 02:13 | XMS_ITS | Encounter Summary ---
Author Organization [facility] [place] [address] Care Team Providers Care Acoustical Logging Engineer Name Role Phone Sabina Brittanyjs Garcia DO Primary Care Provider +1- [phone] Encounter Details Date Type Department Care Team (Late st Contact Info) Description 08/02/2020 Telephone Weight and Wellness at [address] [address] Kathryn Bashir, CHIO Social History Tobacco Use [...] PM EST -[facility] Cage Operator Pre-telemedicine Visit Phone Note Genie Alejandre 1975 [x] Patient was not reached: [] No working phone [] Message left to call [phone] ( ) [facility] message sent [] Patient was reached and the following information was reviewed/obtained per protocol: [] Confirmed patient name and date of [] Confirmed address where patient will be at time of call Patient is in [] [place] [] [place] [] Other: [address] [facility] [address] [place] [address] [] Confirmed best number to be reached [...] Labs/vitals requested [] Labs/vitals sent for scanning (ambulatory care nurse) and entry (RN) [] Requested 24 hour [...] night Follow up with sleep lab at [facility] regarding treatment of sleep apnea food choices [...] 1/4 avocado, 1-2 tbsp dressing 1-2 cups [id number] veggies Write down in a notebook with [...] on filedocumented in this encounter Care Teams Acoustical Logging Engineer Relationship Specialty Start Date End Date Brittany Muhammad DO [address] [place] [address] PCP - General Family Medicine 01/23/19 documented as of this encounter
--- OUTSIDE RECORDS SUMMARY | 2024-07-18 02:13 | XMS_ITS | Encounter Summary ---
Author Organization [facility] Address [facility] [place] [address] Care Team Providers Care Pharmacy Billing Adjudicator Name Role Phone RubioBrittany reynolds Primary Care Provider +1- [phone] Reason for Visit * Reason Onset Date Comments Medication Refill Medication Refill 04/16/2020 Encounter Details Date Type Department Care Team (Late st Contact Info) Description 04/16/2020 Refill Weight and Wellness at [address] [address] Crystal Holley, ACCOUNT SERVICES REPRESENTATIVE [facility] DR AMELIE [facility] [address] Insulin resistance; Class 3 severe obesity with [...] Follow up with sleep lab at [facility] regarding treatment of sleep [...] 1/4 avocado, 1-2 tbsp dressing 1-2 cups quu6zlxyopn veggies Write down in a notebook with [...] type documented in this encounter Care Teams Pharmacy Billing Adjudicator Relationship Specialty Start Date End Date Brittany Muhammad DO [address] [place] [address] PCP - General Family Medicine 01/23/19 documented as of this encounter
--- OUTSIDE RECORDS SUMMARY | 2024-07-18 02:13 | XMS_ITS | Encounter Summary ---
Author Organization [place] [address] Care Team Providers Care Well Service Derrick Worker Name Role Phone Sabina Brittanyjs Garcia DO Primary Care Provider +1- [phone] Encounter Details Date Type Department Care Team (Late st Contact Info) Description 07/19/2020 Telephone Weight and Wellness at [address] [phone] Cindy Zee Social History Tobacco Use Types [...] with sleep lab at [facility] regarding treatment of sleep apnea food [...] 1/4 avocado, 1-2 tbsp dressing 1-2 cups [id number] veggies Write down in a notebook with [...] on filedocumented in this encounter Care Teams Well Service Derrick Worker Relationship Specialty Start Date End Date Brittany Muhammad DO [address] [place] [address] PCP - General Family Medicine 01/23/19 documented as of this encounter
--- OUTSIDE RECORDS SUMMARY | 2024-07-18 02:13 | XMS_ITS | Encounter Summary ---
Author Organization [facility] [place] [address] Care Team Providers Care Foundation Coordinator Name Role Phone Sabina Brittanyjs Garcia DO Primary Care Provider +1- [phone] Encounter Details Date Type Department Care Team (Late st Contact Info) Description 06/20/2020 External Results Weight and Wellness at [address] [phone] rEnestina Aldridge, RN Social History Tobacco Use Types [...] 1/4 avocado, 1-2 tbsp dressing 1-2 cups [id number] veggies Write down in a notebook with [...] Procedure Name Priority Date/Time Associated Diagnosis Comments [facility] EXTERNAL RESULT PANEL Routine 06/18/2020 documented in this encounter Results * (ABNORMAL) [facility] External Results (06/18/2020) Hemoglobin A1c 6.0(H) [...] on filedocumented in this encounter Care Teams Foundation Coordinator Relationship Specialty Start Date End Date Brittany Muhammad DO [address] [place] [place] [address] PCP - General Family Medicine 01/23/19 documented as of this encounter
--- OUTSIDE RECORDS SUMMARY | 2024-07-18 02:13 | XMS_ITS | Encounter Summary ---
Author Organization [facility] Address [facility] [place] [address] Care Team Providers Care Skin Former Name Role Phone Brittany Muhammad DO Primary Care Provider +1- [phone] Encounter Details Date Type Department Care Team (Late st Contact Info) Description 06/18/2020 Telephone [place] [phone] Dee Ontiveros, [facility] Social History Tobacco Use Types Packs/Day Years [...] Notes * Telephone Encounter - Dee Ontiveros, [facility] - 06/18/2020 1:25 PM EDT 5C Bottler Pre-Telemedicine Phone Note [x] Patient not reached [...] night Follow up with sleep lab at [facility] regarding treatment of sleep [...] 1/4 avocado, 1-2 tbsp dressing 1-2 cups [id number] veggies Write down in a notebook with [...] on filedocumented in this encounter Care Teams Skin Former Relationship Specialty Start Date End Date Brittany Muhammad DO [address] [place] [address] PCP - General Family Medicine 01/23/19 documented as of this encounter
--- OUTSIDE RECORDS SUMMARY | 2024-07-18 02:13 | XMS_ITS | Encounter Summary ---
Author Organization [place] [address] Care Team Providers Care Demolition Crane Operator Name Role Phone Sabina Brittanyjs Garcia DO Primary Care Provider +1- [phone] Encounter Details Date Type Department Care Team (Latest Contact Info) Description 07/14/2020 1:30 PM EDT TH Visit (TeleHealth) Weight and Wellness at [address] [phone] Leonel Marroquin Class 3 severe obesity with [...] PM EDT [facility] Health Software Test Manager Phone Visit - Follow up 07/14/2020 [facility] provider: Crystal Holley [ x ] I [...] 1/4 avocado, 1-2 tbsp dressing 1-2 cups [id number] veggies Write down in a notebook with [...] up with sleep lab at [facility] regarding treatment of sleep apnea [...] dog out more. Scheduling [x ] Health coach cleaner call in [ 2 ] weeks Also needs the following scheduled (secretary bookkeeper tasked to call) [ ] visit [ ] MD/ARCH SUPPORT TECHNICIAN visit [ ] Is interested in classes once offered: [ ] culinary [ ] peer I provided care to the patient today via telephone call, 30 minutes telephone visit was spent in discussion with patient on above. Leonel Marroquin, Health Software Test Manager documented in this encounter Plan of Treatment [...] up with sleep lab at [facility] regarding treatment of sleep apnea [...] 1/4 avocado, 1-2 tbsp dressing 1-2 cups [id number] veggies Write down in a notebook with [...] type documented in this encounter Care Teams Demolition Crane Operator Relationship Specialty Start Date End Date Brittany Muhammad DO [address] [place] [address] PCP - General Family Medicine 01/23/19 documented as of this encounter
--- OUTSIDE RECORDS SUMMARY | 2024-07-18 02:13 | XMS_ITS | Encounter Summary ---
Author Organization [facility] [place] [address] Care Team Providers Care Translator Interpreter Name Role Phone Brittany Muhammad DO Primary Care Provider +1- [phone] Encounter Details Date Type Department Care Team (Latest Contact Info) Description 04/30/2020 8:00 AM EDT TH Visit (TeleHealth) Weight and Wellness at [address] [phone] Leonel Marroquin Class 3 severe obesity with [...] to an hour. There's also a website, [employer], that kevin good class for we bigger women. Here is the website for the Mindful Self-Compassion I was talkingabout. I hope you find some helpful information with these! I will talk with you soon, Leonel [email or web address] documented in this encounter Progress Notes * Leonel Marroquin - 04/30/2020 8:00 AM EDT [facility] Health Radiographer Cardiac Catheterization Phone Visit - Follow up 04/30/2020 [facility] provider: Crystal Holley [x ] I confirmed [...] to have a protein (egg, cheese, meat, Italian yogurt)- extra credit if you add fruits/veggies, OK to have a Grain choice (Divehi muffin / toast, etc.) - at your [...] a range- reach out to me in [facility] in aweek or 2 and let [...] longer walks. Scheduling [ x ] Health pitching coach call in [ 2 ] weeks Also needs the following scheduled (medical unit secretary tasked to call) [ ] TH visit [ ] MD/GANG BOSS visit [ ] Is interested in classes once offered: [ ] culinary [ ] peer I provided care to the patient today via telephone call, 30 minutes telephone visit was spent in discussion with patient on above. Leonel Marroquin, Health Radiographer Cardiac Catheterization documented in this encounter Plan of Treatment [...] 1/4 avocado, 1-2 tbsp dressing 1-2 cups [id number] veggies Write down in a notebook with [...] type documented in this encounter Care Teams Translator Interpreter Relationship Specialty Start Date End Date Brittany Muhammad DO [address] [place] [address] PCP - General Family Medicine 01/23/19 documented as of this encounter
--- OUTSIDE RECORDS SUMMARY | 2024-07-18 02:13 | XMS_ITS | Encounter Summary ---
Author Organization [facility] Address [facility] [place] [address] Care Team Providers Care It Support Specialist Name Role Phone MurielBrittany nieves Primary Care Provider +1- [phone] Reason for Visit * Reason Comments Follow-up obesity/weight manag ement Encounter Details Date Type Department Care Team (Latest Contact Info) Description 03/30/2020 7:30 AM EDT TH Visit (TeleHealth) Weight and Wellness at [address] [phone] Crystal Holley, POWER CHECKER [facility] DR AMELIE [place] [address] Class 3 severe obesity with serious comorbidity [...] to have a protein (egg, cheese, meat, Gabonese yogurt)- extra credit if you add fruits/veggies, OK to have a Grain choice (Romanian muffin / toast, etc.) - at your [...] a range- reach out to me in [facility] in aweek or 2 and [...] [facility] of [facility] ??? [...] this encounter Progress Notes * Crystal Holley, POWER CHECKER - 03/30/2020 7:30 AM EDT [facility] Visit Patient provided verbal consent prior to initiation of this telemedicine encounter and expressed understanding that the telemedicine visit may be billed similar to a clinic visit, pt was seen while at her home in [facility] I spent a total of 43 minutes [...] to have a protein (egg, cheese, meat, Gabonese yogurt)- extra credit if you add fruits/veggies, OK to have a Grain choice (Romanian muffin / toast, etc.) - at your [...] a range- reach out to me in [facility] in aweek or 2 and [...] [facility] of [facility] ??? stress management On track Continue working with therapist to manage stress Deep breathing before bedtime Find some activities/hobbies you enjoy to keep your mind and body busy INTERVAL HISTORY / PROGRESS TOWARD GOALS: [x] I reviewed past / interim records including notes and labs [facility] Followup Responses 02/25/2020 [facility] - Readiness [...] Sleepin-8 hours, still planning to follow with [facility] sleep lab, still struggling with sleep, [...] 43 minutes of which were spent in hbri-xf-[id number] discussion/counseling re obesity, nutrition and activity as [...] 1/4 avocado, 1-2 tbsp dressing 1-2 cups [id number] veggies Write down in a notebook with [...] X documented in this encounter Care Teams It Support Specialist Relationship Specialty Start Date End Date Brittany Muhammad DO [address] [facility] [place] [address] PCP - General Family Medicine 01/23/19 documented as of this encounter
--- OUTSIDE RECORDS SUMMARY | 2024-07-18 02:13 | XMS_ITS | Encounter Summary ---
Author Organization [facility] [place] [address] Care Team Providers Care Mailer Name Role Phone Sabina Brittanyjs Garcia DO Primary Care Provider +1- [phone] Encounter Details Date Type Department Care Team (Late st Contact Info) Description 07/02/2020 Telephone Weight and Wellness at [address] [phone] Cindy Zee Social History Tobacco Use Types [...] 1/4 avocado, 1-2 tbsp dressing 1-2 cups [id number] veggies Write down in a notebook with [...] on filedocumented in this encounter Care Teams Mailer Relationship Specialty Start Date End Date Brittany Muhammad DO [address] [place] [address] PCP - General Family Medicine 01/23/19 documented as of this encounter
--- OUTSIDE RECORDS SUMMARY | 2024-07-18 02:13 | XMS_ITS | Encounter Summary ---
Author Organization [facility] [place] [address] Care Team Providers Care Senior Specialist Name Role Phone Sabina Brittanyjs Garcia DO Primary Care Provider +1- [phone] Encounter Details Date Type Department Care Team (Late st Contact Info) Description 07/05/2020 Telephone Weight and Wellness at [address] [phone] Leonel Marroquin Social History Tobacco Use Types [...] 1/4 avocado, 1-2 tbsp dressing 1-2 cups [id number] veggies Write down in a notebook with [...] on filedocumented in this encounter Care Teams Senior Specialist Relationship Specialty Start Date End Date Brittany Muhammad DO [address] [place] [place] [address] PCP - General Family Medicine 01/23/19 documented as of this encounter
--- OUTSIDE RECORDS SUMMARY | 2024-07-18 02:13 | XMS_ITS | Encounter Summary ---
Author Organization [facility] Address [facility] [place] [address] Care Team Providers Care Personal Fitness Manager Name Role Phone Brittany Muhammad DO Primary Care Provider +1- [phone] Encounter Details Date Type Department Care Team (Late st Contact Info) Description 03/08/2020 Telephone [place] [phone] Dee Ontiveros, [facility] Social History Tobacco Use Types Packs/Day [...] Notes * Telephone Encounter - Dee Ontiveros, [facility] - 03/08/2020 10:46 AM EDT GAP Hanger Off Pre-Telemedicine Phone Note [] Patient not reached [x] Patient reached and the following information was reviewed/obtained per protocol: [x] Confirmed patient name and date of [x] Confirmed telemedicine tyesha (Vidyo and Virtual Visit) is downloaded and functioning [x] Confirmed location of patient - TeleVisit is taking place in [x] [place] [] [place] [] If not on [facility], working on signing up for [facility] [] Confirmed has completed any pre-visit questionnaires [] If has not received required pre-visit questionnaires, send via [facility] [x] Reviewed patient medications ??? metFORMIN XR [...] [facility] of sleep [facility]nea documented as of this encounter Visit Diagnoses Not on filedocumented in this encounter Care Teams Personal Fitness Manager Relationship Specialty Start Date End Date Brittany Muhammad DO [address] [place] [address] PCP - General Family Medicine 01/23/19 documented as of this encounter
--- OUTSIDE RECORDS SUMMARY | 2024-07-18 02:13 | XMS_ITS | Encounter Summary ---
Author Organization [facility] Address [facility] Prashant hernán[place] [address] Care Team Providers Care Marketing Specialist Name Role Phone RubioBrittany reynolds Jose BARRETO Primary Care Provider +1- [phone] Encounter Details Date Type Department Care Team (Latest Contact Info) Description 06/22/2020 10:00 AM EDT TH Visit (TeleHealth) [place] [address] Mark Anthony Watts MD [facility] [place] [address] Hypothyroidism, postsurgical; Thyroid cancer; PCOS (polycystic ovarian [...] 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, right [id number] Stage 1 microPTC s/p Total thyroidectomy in [...] CMP in 3 mo as ordered by [facility] and we will check 25vitamin D at [...] 1/4 avocado, 1-2 tbsp dressing 1-2 cups [id number] veggies Write down in a notebook with [...] 25 OH 48 21 - 100 ng/mL [facility] Vit D Interp Sufficient [facility] Blood 03/18/2021 3:13 PM EDT 03/18/2021 3:41 PM EDT Narrative Resulting Agency Comment Spec In Lab Mark Anthony Watts MD CHEMISTRY ORDERAB LES [facility] [place] [address] documented in this encounter Visit Diagnoses Diagnosis Hypothyroidism, postsurgical Postsurgical hypothyroidism Thyroid cancer Malignant neoplasm of thyroid gland PCOS (polycystic ovarian syndrome) Polycystic ovaries Prediabetes Other abnormal glucose Vitamin D insufficiency Unspecified vitamin D deficiency documented in this encounter Care Teams Marketing Specialist Relationship Specialty Start Date End Date Brittany Muhammad DO [address] [place] [address] PCP - General Family Medicine 01/23/19 documented as of this encounter
--- OUTSIDE RECORDS SUMMARY | 2024-07-18 02:13 | XMS_ITS | Encounter Summary ---
Author Organization [facility] Address [facility] [place] [address] Care Team Providers Care Online Community Manager Name Role Phone Brittany Muhammad DO Primary Care Provider +1- [phone] Encounter Details Date Type Department Care Team (Late st Contact Info) Description 03/10/2020 Telephone [place] [phone] Dee Ontiveros, [facility] Social History Tobacco Use Types Packs/Day Years [...] Notes * Telephone Encounter - Dee Ontiveros, [facility] - 03/10/2020 9:45 AM EDT GAP Signal Tower Operator Pre-Telemedicine Phone Note [x] Patient not reached [] Patient reached and the following information was reviewed/obtained per protocol: [] Confirmed patient name and date of [] Confirmed telemedicine tyesha (Vidyo and Virtual Visit) is downloaded and functioning [] Confirmed location of patient - TeleVisit is taking place in [] [place] [] [place] [] If not on [facility], working on signing up for [facility] [] Confirmed has completed any pre-visit questionnaires [] If has not received required pre-visit questionnaires, send via [facility] [] Reviewed patient medications [] Documented [...] on filedocumented in this encounter Care Teams Online Community Manager Relationship Specialty Start Date End Date Brittany Muhammad DO [address] [place] [address] PCP - General Family Medicine 01/23/19 documented as of this encounter
--- OUTSIDE RECORDS SUMMARY | 2024-07-18 02:13 | XMS_ITS | Encounter Summary ---
Author Organization [facility] [place] [address] Care Team Providers Care Radiologic Technician Name Role Phone SabinaBrittany Primary Care Provider +1- [phone] Encounter Details Date Type Department Care Team (Late st Contact Info) Description 03/02/2020 Orders Only Weight and Wellness at [place] [address] [place] [address] Crystal Holley, [employer]ERA MACHINIST [facility] DR [place] [address] Insulin resistance; Class 3 severe obesity with [...] [facility] of sleep [facility]nea documented as of this encounter Visit Diagnoses Diagnosis Insulin resistance Dysmetabolic Syndrome X Class 3 severe obesity with serious comorbidity and body mass index (BMI) of 45.0 to 49.9 in adult, unspecified obesity type documented in this encounter Care Teams Radiologic Technician Relationship Specialty Start Date End Date Brittany Muhammad DO [address] [place] [address] PCP - General Family Medicine 01/23/19 documented as of this encounter
--- OUTSIDE RECORDS SUMMARY | 2024-07-18 02:13 | XMS_ITS | Encounter Summary ---
Author Organization [facility] [place] [address] Care Team Providers Care Hand Brush Filler Name Role Phone Brittany Muhammad DO Primary Care Provider +1- [phone] Encounter Details Date Type Department Care Team (Late st Contact Info) Description 03/29/2020 Telephone Weight and Wellness at [address] [phone] Kathryn Bashir, CHIO Social History Tobacco Use [...] Notes * Telephone Encounter - Kathryn Bashir SUPERVISOR [employer] - 03/29/2020 1:06 PM EDT [facility] Paste Thinner Pre-telemedicine Visit Phone Note Genie Alejandre 1975 [...] working phone [] Message left to call [phone] [] Patient was reached and the following information was reviewed/obtained per protocol: [] Confirmed patient name and date of [] Confirmed address where patient will be at time of call Patient is in [] [place] [] [place] [] Other: [address] [facility] [address] [facility] [address] [] Confirmed best number to be reached [...] requested [] Labs/vitals sent for scanning (secretary board of commissioners) and entry (RN) [] Requested 24 hour diet recall [] Reminded to sign up for [facility] [] Reminded to complete [facility] survey if message received to do [...] 1/4 avocado, 1-2 tbsp dressing 1-2 cups [id number] veggies Write down in a notebook with [...] on filedocumented in this encounter Care Teams Hand Brush Filler Relationship Specialty Start Date End Date Brittany Muhammad DO [address] [place] [address] PCP - General Family Medicine 01/23/19 documented as of this encounter
--- OUTSIDE RECORDS SUMMARY | 2024-07-18 02:13 | XMS_ITS | Encounter Summary ---
Author Organization [facility] [place] [address] Support Name Relationship Address Phone Sara Jones Sibling [address] [place] [address] Shamika Croft Mother Unknown [phone] Care Team Providers Care Barge Hand Name Role Phone Brittany Muhammad DO Primary Care Provider +1- [phone] Encounter Details Date Type Department Care Team (Late st Contact Info) Description 05/18/2020 Telephone Weight and Wellness at [address] [phone] Kathryn Bashir, CHIO Social History Tobacco Use [...] AM EDT [facility] Ironing Pleater Pre-telemedicine Visit Phone Note Genie Alejandre 1975 [...] working phone [] Message left to call [phone] [] Patient was reached and the following information was reviewed/obtained per protocol: [] Confirmed patient name and date of [] Confirmed address where patient will be at time of call Patient is in [] [place] [] [place] [] Other: [address] [address] [] Confirmed best number to be reached [...] Labs/vitals requested [] Labs/vitals sent for scanning (assistant corporate secretary) and entry (RN) [] Requested 24 hour diet recall [] Reminded to sign up for [facility] [] Reminded to complete [facility] survey if message received to [...] night Follow up with sleep lab at [facility] regarding treatment of sleep apnea food [...] 1/4 avocado, 1-2 tbsp dressing 1-2 cups [id number] veggies Write down in a notebook with [...] on filedocumented in this encounter Care Teams Barge Hand Relationship Specialty Start Date End Date Brittany Muhammad DO [address] [place] [address] PCP - General Family Medicine 01/23/19 documented as of this encounter
--- OUTSIDE RECORDS SUMMARY | 2024-07-18 02:13 | XMS_ITS | Encounter Summary ---
Author Organization [facility] [place] [address] Care Team Providers Care Manager Bilingual Name Role Phone Brittany Muhammad DO Primary Care Provider +1- [phone] Encounter Details Date Type Department Care Team (Late st Contact Info) Description 03/08/2020 Telephone [place] [phone] Elana Luong CMA Social History Tobacco Use [...] CMA - 03/08/2020 9:59 AM EDT GAP Raw Shellfish Preparer Pre-Telemedicine Phone Note [x] Patient not reached [] Patient reached and the following information was reviewed/obtained per protocol: [] Confirmed patient name and date of [] Confirmed telemedicine tyesha (Vidyo and Virtual Visit) is downloaded and functioning [] Confirmed location of patient - TeleVisit is taking place in [] [place] [] [place] [] If not on [facility], working on signing up for [facility] [] Confirmed has completed any pre-visit questionnaires [] If has not received required pre-visit questionnaires, send via [facility] [] Reviewed patient medications [] [...] On track( 11:55 AM EDT) Crystal Wells, MALE IMPERSONATOR Note: Continue working with therapist to manage [...] up with sleep lab at [facility] regarding treatment of sleep apnea [...] 1/4 avocado, 1-2 tbsp dressing 1-2 cups [id number] veggies Write down in a notebook with [...] filedocumented in this encounter Care Teams Manager Bilingual Relationship Specialty Start Date End Date Brittany Muhammad DO [address] [place] [address] PCP - General Family Medicine 01/23/19 documented as of this encounter
--- OUTSIDE RECORDS SUMMARY | 2024-07-18 02:13 | XMS_ITS | Encounter Summary ---
Author Organization [facility] [place] [address] Care Team Providers Care Lepidopterist Name Role Phone Sabina Brittanyjs Garcia DO Primary Care Provider +1- [phone] Encounter Details Date Type Department Care Team (Late st Contact Info) Description 05/03/2020 Telephone Weight and Wellness at [address] [phone] Cindy Zee Social History Tobacco Use Types [...] 1/4 avocado, 1-2 tbsp dressing 1-2 cups [id number] veggies Write down in a notebook with [...] on filedocumented in this encounter Care Teams Lepidopterist Relationship Specialty Start Date End Date Brittany Muhammad DO [address] [place] [address] PCP - General Family Medicine 01/23/19 documented as of this encounter
--- OUTSIDE RECORDS SUMMARY | 2024-07-18 02:13 | XMS_ITS | Encounter Summary ---
Author Organization [facility] [address] Care Team Providers Care Land Clearer Name Role Phone Sabina Brittanyjs Garcia DO Primary Care Provider +1- [phone] Encounter Details Date Type Department Care Team (Latest Contact Info) Description 03/30/2020 3:30 PM EDT TH Visit (TeleHealth) Weight and Wellness at [address] [phone] Leonel Marroquin Class 3 severe obesity with [...] PM EDT [facility] Health Dredge Pipeman Phone Visit - NEW 03/30/2020 [facility] provider: Crystal Holley IV: Leonel Marroquin [ x ] I confirmed that I am speaking with Genietiffanie Alejandre who is doing this phone visit from home [x ] Patient verbally consents to this telephone visit and understands that this visit may be billed, similar to a clinic office visit. [facility] Program Information: [x ] I reviewed Genie L Sessions'sknowledge/understanding of the [facility] program and pathways. Comments: wants to wait a bit before she does too much. [ x ] I reviewed Genie L Sessions's expectations of Program: knowledge, support Current goals (set by provider in initial visit) Goals ??? food choices / tracking goals - at breakfast, at least need to have a protein (egg, cheese, meat, Belarusian yogurt)- extra credit if you add fruits/veggies, OK to have a Grain choice (Turkish muffin / toast, etc.) - at your [...] reach out to me in [facility] in aweek or 2 and let [...] [facility] regarding treatment of sleep apnea ??? [...] health coaching Scheduling [ x ] Health women's swim coach call in [ 2 ] weeks Also needs the following scheduled (company secretary tasked to call) [ ] visit [ ] MD/MACHINE GRAINER visit [ ] Is interested in classes once offered: [ ] culinary [ ] peer I provided care to the patient today via telephone call, 30 minutes telephone visit was spent in discussion with patient on above. Leonel Marroquin, Health Dredge Pipeman documented in this encounter Plan of Treatment [...] 1/4 avocado, 1-2 tbsp dressing 1-2 cups [id number] veggies Write down in a notebook with [...] type documented in this encounter Care Teams Land Clearer Relationship Specialty Start Date End Date Brittany Muhammad DO [address] [place] [place] [address] PCP - General Family Medicine 01/23/19 documented as of this encounter
--- OUTSIDE RECORDS SUMMARY | 2024-07-18 02:13 | XMS_ITS | Encounter Summary ---
Author Organization [facility] [place] [address] Care Team Providers Care Auto Body Painter Name Role Phone Sabina Brittanyjs Garcia DO Primary Care Provider +1- [phone] Encounter Details Date Type Department Care Team (Late st Contact Info) Description 07/05/2020 Telephone Weight and Wellness at [address] [phone] Cindy Zee Social History Tobacco Use Types [...] 1/4 avocado, 1-2 tbsp dressing 1-2 cups [id number] veggies Write down in a notebook with [...] on filedocumented in this encounter Care Teams Auto Body Painter Relationship Specialty Start Date End Date Brittany Muhammad DO [address] [place] [address] PCP - General Family Medicine 01/23/19 documented as of this encounter
--- OUTSIDE RECORDS SUMMARY | 2024-07-18 02:13 | XMS_ITS | Encounter Summary ---
Author Organization [place] [address] Care Team Providers Care Oven Heater Name Role Phone Sabina Brittanyjs Garcia DO Primary Care Provider +1- [phone] Encounter Details Date Type Department Care Team (Late st Contact Info) Description 06/18/2020 [place] [phone] Rama Lee [facility] Social History Tobacco Use Types [...] MA - 06/18/2020 1:43 PM EDT 5C Vocational Technical Education Teacher Pre-Telemedicine Phone Note [] Patient not reached [...] Capsule ??? fluticasone propionate (FLONASE) 50 mcg/actuation [place], Suspension ??? metFORMIN XR (Glucophage XR) 500 [...] management Lifestyle On track( 11:55 AM EDT) Crystla Wells APRN Note: Continue working with therapist [...] Follow up with sleep lab at [facility] regarding treatment of sleep apnea [...] 1/4 avocado, 1-2 tbsp dressing 1-2 cups [id number] veggies Write down in a notebook with [...] hypothyroidism documented in this encounter Care Teams Oven Heater Relationship Specialty Start Date End Date Brittany Muhammad DO [address] [place] [address] PCP - General Family Medicine 01/23/19 documented as of this encounter
--- OUTSIDE RECORDS SUMMARY | 2024-07-18 02:13 | XMS_ITS | Encounter Summary ---
Author Organization [facility] Address [facility] [place] [address] Care Team Providers Care Industrial Gas Fitter Name Role Phone MurielBrittany nieves Primary Care Provider +1- [phone] Reason for Visit * Reason Comments Medication Refill Encounter Details Date Type Department Care Team (Late st Contact Info) Description 04/16/2020 Refill Weight and Wellness at [address] [address] Crystal Holley, [facility] DR [facility]ELIE [facility] [address] Insulin resistance; Class 3 severe obesity with [...] up with sleep lab at [facility] regarding treatment of sleep apnea [...] 1/4 avocado, 1-2 tbsp dressing 1-2 cups [id number] veggies Write down in a notebook with [...] type documented in this encounter Care Teams Industrial Gas Fitter Relationship Specialty Start Date End Date Brittany Muhammad DO [address] [place] [address] PCP - General Family Medicine 01/23/19 documented as of this encounter
--- OUTSIDE RECORDS SUMMARY | 2024-07-18 02:13 | XMS_ITS | Encounter Summary ---
Author Organization [facility] [place] [address] Care Team Providers Care Accounts Payable Administrator Name Role Phone SabinaAsmitajs Garcia DO Primary Care Provider +1- [phone] Encounter Details Date Type Department Care Team (Late st Contact Info) Description 03/11/2020 Telephone Weight and Wellness at [address] [phone] Leonel Marroquin Social History Tobacco Use Types [...] up with sleep lab at [facility] regarding treatment of sleep apnea documented as of this encounter Visit Diagnoses Not on filedocumented in this encounter Care Teams Accounts Payable Administrator Relationship Specialty Start Date End Date Brittany Muhammad DO [address] [place] [address] PCP - General Family Medicine 01/23/19 documented as of this encounter
--- OUTSIDE RECORDS SUMMARY | 2024-07-18 02:13 | XMS_ITS | Encounter Summary ---
Author Organization [facility] [place] [address] Care Team Providers Care Pensions Retirement Plan Specialist Name Role Phone Sabina Brittanyjs Garcia DO Primary Care Provider +1- [phone] Encounter Details Date Type Department Care Team (Late st Contact Info) Description 06/01/2020 Telephone Weight and Wellness at [address] [phone] Cindy Zee Social History Tobacco Use Types [...] Follow up with sleep lab at [facility] regarding treatment of sleep apnea [...] 1/4 avocado, 1-2 tbsp dressing 1-2 cups [id number] veggies Write down in a notebook with [...] on filedocumented in this encounter Care Teams Pensions Retirement Plan Specialist Relationship Specialty Start Date End Date Brittany Muhammad DO [address] [place] [address] PCP - General Family Medicine 01/23/19 documented as of this encounter
--- OUTSIDE RECORDS SUMMARY | 2024-07-18 02:13 | XMS_ITS | Encounter Summary ---
Author Organization [facility] [place] [address] Care Team Providers Care Fusing Machine Operator Name Role Phone Sabina Brittanyjs Garcia DO Primary Care Provider +1- [phone] Encounter Details Date Type Department Care Team (Late st Contact Info) Description 08/03/2020 Telephone Weight and Wellness at [address] [phone] Cindy Zee Social History Tobacco Use Types [...] 1/4 avocado, 1-2 tbsp dressing 1-2 cups [id number] veggies Write down in a notebook with [...] on filedocumented in this encounter Care Teams Fusing Machine Operator Relationship Specialty Start Date End Date Brittany Muhammad DO [address] [place] [address] PCP - General Family Medicine 01/23/19 documented as of this encounter
--- OUTSIDE RECORDS SUMMARY | 2024-07-18 02:13 | XMS_ITS | Encounter Summary ---
Author Organization [facility] [place] [address] Care Team Providers Care It Service Delivery Manager Name Role Phone Sabina Brittanyjs Garcia DO Primary Care Provider +1- [phone] Encounter Details Date Type Department Care Team (Late st Contact Info) Description 03/29/2020 Telephone Weight and Wellness at [address] [phone] Cindy Zee Social History Tobacco Use Types [...] night Follow up with sleep lab at [facility] regarding treatment of sleep apnea food [...] 1/4 avocado, 1-2 tbsp dressing 1-2 cups [id number] veggies Write down in a notebook with [...] on filedocumented in this encounter Care Teams It Service Delivery Manager Relationship Specialty Start Date End Date Brittany Muhammad DO [address] [place] [address] PCP - General Family Medicine 01/23/19 documented as of this encounter
--- OUTSIDE RECORDS SUMMARY | 2024-07-18 02:13 | XMS_ITS | Encounter Summary ---
Author Organization [facility] Address [facility] Prashant hern[address] [address] Care Team Providers Care Core Java Engineer Name Role Phone MurielBrittany nieves Jose BARRETO Primary Care Provider +1- [phone] Encounter Details Date Type Department Care Team (Latest Contact Info) Description 03/11/2020 9:00 AM EDT TH Visit (TeleHealth) [place] [address] Kenia Khanna MD [facility] [place] [address] Class 3 severe obesity with serious comorbidity [...] CT scan 01/22/2019 with Pulmonology (Yinka) at [facility] which reportedly did have tracheal deviation [...] has improved. 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 No mirgaines. Not smoking. No lower extremity [...] weight neutral antidepressants. Social Hx: Lives in [facility] Former smoker- quit in 2005 [...] agonist as well Case discussed with staff Licensed Occupational Therapist Yobani Ford MD. Pt prefers to be reached at cell #[phone]. Follow up with Ashely Gardner MD in 2 months to discuss PCOS, will need f/u in 10/2020 forlateral neck u/s. Kenia Khanna MD PGY-5 [facility] Endocrinology Fellow Pager #[phone] * Chuy Ford MD - 03/11/2020 9:00 [...] [facility] of [facility] documented as of this encounter Visit Diagnoses Diagnosis Class 3 severe obesity with serious comorbidity and body mass index (BMI) of 45.0 to 49.9 in adult, unspecified obesity type PCOS (polycystic ovarian syndrome) Polycystic ovaries Papillary microcarcinoma of thyroid DESTINY (acute kidney injury) Acute kidney failure, unspecified documented in this encounter Care Teams Core Java Engineer Relationship Specialty Start Date End Date Brittany Muhammad DO [address] [facility] [place] [address] PCP - General Family Medicine 01/23/19 documented as of this encounter
--- OUTSIDE RECORDS SUMMARY | 2024-07-18 02:13 | XMS_ITS | Encounter Summary ---
Author Organization [facility] [place] [address] Care Team Providers Care Reinforcing Rod Layer Name Role Phone Sabina Brittanyjs Garcia DO Primary Care Provider +1- [phone] Encounter Details Date Type Department Care Team (Latest Contact Info) Description 07/01/2020 2:30 PM EDT TH Visit (TeleHealth) Weight and Wellness at [address] [phone] Leonel Marroquin Class 3 severe obesity with [...] will send you hand-outs and recipes through [facility]. I will also ask our MA to mail a book of recipes to you that we have. Leonel Warren documented in this encounter Progress Notes * Leonel Marroquin - 07/01/2020 2:30 PM EDT [facility] Health Horse Trainer Phone Visit - Follow up 07/01/2020 [facility] provider: Crystal Holley [ x ] I [...] to have a protein (egg, cheese, meat, [place]ib[place]ian yogurt)- extra credit if you add fruits/veggies, OK to have a Grain choice (Mongolian muffin / toast, etc.) - at your [...] a range- reach out to me in [facility] in aweek or 2 and let [...] [facility] ??? [...] other day. Scheduling [ x ] Health continuous improvement coach call in [ 2 ] weeks Also needs the following scheduled (clerical secretary tasked to call) [ ] RD TH visit [ ] MD/LEVEL VIAL INSPECTOR visit [ ] Is interested in classes once offered: [ ] culinary [ ] peer I provided care to the patient today via telephone call, 30 minutes telephone visit was spent in discussion with patient on above. Leonel Marroquin, Health Horse Trainer documented in this encounter Plan of Treatment [...] 1/4 avocado, 1-2 tbsp dressing 1-2 cups [id number] veggies Write down in a notebook with [...] type documented in this encounter Care Teams Reinforcing Rod Layer Relationship Specialty Start Date End Date Brittany Muhammad DO [address] [place] [address] PCP - General Family Medicine 01/23/19 documented as of this encounter
--- OUTSIDE RECORDS SUMMARY | 2024-07-18 02:13 | XMS_ITS | Encounter Summary ---
Author Organization [facility] Address [facility] [place] [address] Care Team Providers Care Chiller Hand Name Role Phone MurielBrittany nieves Primary Care Provider +1- [phone] Encounter Details Date Type Department Care Team (Late st Contact Info) Description 06/22/2020 Orders Only Weight and Wellness at [address] [phone] Crystal Holley, [facility] DR [facility]EL[facility] [place] [address] Pre-diabetes Social History Tobacco Use Types Packs/Day [...] night Follow up with sleep lab at [facility] regarding treatment of sleep apnea [...] 1/4 avocado, 1-2 tbsp dressing 1-2 cups [id number] veggies Write down in a notebook with [...] glucose documented in this encounter Care Teams Chiller Hand Relationship Specialty Start Date End Date Brittany Muhammad DO [address] [place] [address] PCP - General Family Medicine 01/23/19 documented as of this encounter
--- OUTSIDE RECORDS SUMMARY | 2024-07-18 02:13 | XMS_ITS | Encounter Summary ---
Author Organization [facility] [place] [address] Care Team Providers Care Defence Force Senior Officer Name Role Phone Sabina Brittanyjs Garcia DO Primary Care Provider +1- [phone] Encounter Details Date Type Department Care Team (Late Contact Info) Description 03/19/2020 3:45 PM EDT Notes Only Weight and Wellness at [address] [phone] Social History Tobacco Use Types Packs/Day Years [...] 1/4 avocado, 1-2 tbsp dressing 1-2 cups [id number] veggies Write down in a notebook with [...] on filedocumented in this encounter Care Teams Defence Force Senior Officer Relationship Specialty Start Date End Date Brittany Muhamamd DO [address] [place] [address] PCP - General Family Medicine 01/23/19 documented as of this encounter
--- OUTSIDE RECORDS SUMMARY | 2024-07-18 02:13 | XMS_ITS | Encounter Summary ---
Author Organization [facility] Address [facility] [place] [address] Care Team Providers Care Occupational Therapist Name Role Phone RubioBrittany reynolds Jose BARRETO Primary Care Provider +1- [phone] Encounter Details Date Type Department Care Team (Latest Contact Info) Description 07/05/2020 8:30 AM EDT TH Visit (TeleHealth) Weight and Wellness at [address] [address] [facility] [place] [address] Adult BMI 40.0-44.9 kg/sq m Social History [...] 1/4 avocado, 1-2 tbsp dressing 1-2 cups [id number] veggies Write down in a notebook with [...] [facility] regarding [facility] of [facility] ??? [...] was at home at the following address: [address] [place] [phone] Food Trackers: See notes below Weight Today: 245/246 through March - June 241 today Vitals 07/05/2020 06/22/2020 Height (Bolivian) 62.008 62 Height (Metric) 157.5 cm 157.5 cm Weight (Bolivian) 241 lbs 246 lbs Weight (Metric) 109.317 [...] to have a protein (egg, cheese, meat, French yogurt)- extra credit if you add fruits/veggies, OK to have a Grain choice (Bolivian muffin / toast, etc.) - at your [...] a range- reach out to me in [facility] in aweek or 2 and let me [...] 1/4 avocado, 1-2 tbsp dressing 1-2 cups [id number] veggies Write down in a notebook with [...] [facility] of [facility] ??? [...] are appropriate Monitor/Evaluate: Will follow up in [facility] for Eatsmarter classes (re-starting in August) [...] 1/4 avocado, 1-2 tbsp dressing 1-2 cups [id number] veggies Write down in a notebook with [...] adult documented in this encounter Care Teams Occupational Therapist Relationship Specialty Start Date End Date Brittany Muhammad DO [address] [place] [place] [address] PCP - General Family Medicine 01/23/19 documented as of this encounter
--- OUTSIDE RECORDS SUMMARY | 2024-07-18 02:13 | XMS_ITS | Encounter Summary ---
Author Organization [facility] [place] [address] Care Team Providers Care Strawberry Grower Name Role Phone Sabina Brittanyjs Garcia DO Primary Care Provider +1- [phone] Encounter Details Date Type Department Care Team (Late st Contact Info) Description 04/23/2020 3:45 PM EDT Notes Only Weight and Wellness at [address] [address] Arrived Social History Tobacco Use Types Packs/Day [...] 1/4 avocado, 1-2 tbsp dressing 1-2 cups [id number] veggies Write down in a notebook with [...] on filedocumented in this encounter Care Teams Strawberry Grower Relationship Specialty Start Date End Date Brittany Muhammad DO [address] [place] [address] PCP - General Family Medicine 01/23/19 documented as of this encounter
--- OUTSIDE RECORDS SUMMARY | 2024-07-18 02:13 | XMS_ITS | Encounter Summary ---
Author Organization [facility] [place] [address] Care Team Providers Care Social Media Executive Name Role Phone Sabina Brittanyjs Garcia DO Primary Care Provider +1- [phone] Encounter Details Date Type Department Care Team (Late st Contact Info) Description 04/16/2020 3:45 PM EDT Notes Only Weight and Wellness at [address] [address] Arrived Social History Tobacco Use Types Packs/Day [...] 1/4 avocado, 1-2 tbsp dressing 1-2 cups [id number] veggies Write down in a notebook with [...] on filedocumented in this encounter Care Teams Social Media Executive Relationship Specialty Start Date End Date Brittany Muhammad DO [address] [place] [address] PCP - General Family Medicine 01/23/19 documented as of this encounter
--- OUTSIDE RECORDS SUMMARY | 2024-07-18 02:13 | XMS_ITS | Encounter Summary ---
Author Organization [facility] Address [facility] [place] [address] Care Team Providers Care Business Partner Name Role Phone MurielBrittany nieves Primary Care Provider +1- [phone] Reason for Visit * Reason Comments Medication Refill Encounter Details Date Type Department Care Team (Late st Contact Info) Description 03/02/2020 Refill Weight and Wellness at [address] [address] Crystal Holley, CHIEF DIGITAL MEDIA OFFICER [facility] DR [place] [address] Insulin resistance; Class 3 severe obesity with [...] 1/4 avocado, 1-2 tbsp dressing 1-2 cups [id number] veggies Write down in a notebook with [...] type documented in this encounter Care Teams Business Partner Relationship Specialty Start Date End Date Brittany Muhammad DO [address] [place] [address] PCP - General Family Medicine 01/23/19 documented as of this encounter
--- OUTSIDE RECORDS SUMMARY | 2024-07-18 02:13 | XMS_ITS | Encounter Summary ---
Author Organization [facility] [place] [address] Care Team Providers Care Manager Functional Name Role Phone MurielmagdysilvianoBrittany reynolds Primary Care Provider +1- [phone] Encounter Details Date Type Department Care Team (Late st Contact Info) Description 03/12/2020 3:45 PM EDT Notes Only Weight and Wellness at [address] [phone] Social History Tobacco Use Types Packs/Day Years [...] night Follow up with sleep lab at [facility] regarding treatment of sleep apnea food [...] 1/4 avocado, 1-2 tbsp dressing 1-2 cups [id number] veggies Write down in a notebook with [...] filedocumented in this encounter Care Teams Manager Functional Relationship Specialty Start Date End Date Brittany Muhammad DO [address] [place] [address] PCP - General Family Medicine 01/23/19 documented as of this encounter
--- OUTSIDE RECORDS SUMMARY | 2024-07-18 02:13 | XMS_ITS | Encounter Summary ---
Author Organization [facility] [place] [address] Care Team Providers Care Brim Flexer Name Role Phone Sabina Brittanyjs Garcia DO Primary Care Provider +1- [phone] Encounter Details Date Type Department Care Team (Late st Contact Info) Description 07/01/2020 Telephone Weight and Wellness at [address] [phone] Cindy Zee Social History Tobacco Use Types [...] 1/4 avocado, 1-2 tbsp dressing 1-2 cups [id number] veggies Write down in a notebook with [...] on filedocumented in this encounter Care Teams Brim Flexer Relationship Specialty Start Date End Date Brittany Muhammad DO [address] [place] [address] PCP - General Family Medicine 01/23/19 documented as of this encounter
--- OUTSIDE RECORDS SUMMARY | 2024-07-18 02:13 | XMS_ITS | Encounter Summary ---
Author Organization [facility] [place] [address] Care Team Providers Care Cake Wringer Name Role Phone aSbina Brittanyjs Garcia DO Primary Care Provider +1- [phone] Encounter Details Date Type Department Care Team (Late st Contact Info) Description 07/22/2020 Telephone Weight and Wellness at [address] [phone] Cindy Zee Social History Tobacco Use Types [...] 1/4 avocado, 1-2 tbsp dressing 1-2 cups [id number] veggies Write down in a notebook with [...] on filedocumented in this encounter Care Teams Cake Wringer Relationship Specialty Start Date End Date Brittany Muhammad DO [address] [place] [address] PCP - General Family Medicine 01/23/19 documented as of this encounter
--- OUTSIDE RECORDS SUMMARY | 2024-07-18 02:13 | XMS_ITS | Encounter Summary ---
[facility] Organization [facility] [place] [address] Care Team Providers Care Barrel Rifler Broach Name Role Phone Sabina Brittanyjs Garcia DO Primary Care Provider +1- [phone] Reason for Visit * Reason Onset Date Comments Appointment 03/03/2020 Encounter Details Date Type Department Care Team (Late st Contact Info) Description 03/03/2020 Telephone [place] [phone] She Martinez Appointment Social History Tobacco Use [...] regarding switching appointment on 03/09 to a [facility] due to public health concerns. documented [...] [facility] regarding treatment of sleep apnea documented as of this encounter Visit Diagnoses Not on filedocumented in this encounter Care Teams Barrel Rifler Broach Relationship Specialty Start Date End Date Brittany Muhammad DO [address] [place] [address] PCP - General Family Medicine 01/23/19 documented as of this encounter
--- OUTSIDE RECORDS SUMMARY | 2024-07-18 02:13 | XMS_ITS | Encounter Summary ---
Author Organization [facility] [place] [address] Care Team Providers Care Bank Credit Card Collection Clerk Name Role Phone Sabina Brittanyjs Garcia DO Primary Care Provider +1- [phone] Encounter Details Date Type Department Care Team (Late st Contact Info) Description 04/09/2020 3:45 PM EDT Notes Only Weight and Wellness at [address] [address] Arrived Social History Tobacco Use Types Packs/Day [...] Follow up with sleep lab at [facility] regarding treatment of sleep apnea food [...] 1/4 avocado, 1-2 tbsp dressing 1-2 cups yze2ezsmlsy veggies Write down in a notebook with [...] on filedocumented in this encounter Care Teams Bank Credit Card Collection Clerk Relationship Specialty Start Date End Date Brittany Muhammad DO [address] [place] [address] PCP - General Family Medicine 01/23/19 documented as of this encounter
--- OUTSIDE RECORDS SUMMARY | 2024-07-18 02:13 | XMS_ITS | Encounter Summary ---
Author Organization [place] [address] Care Team Providers Care Cloth Carrier Name Role Phone Sabina Brittanyjs Garcia DO Primary Care Provider +1- [phone] Encounter Details Date Type Department Care Team (Late st Contact Info) Description 05/31/2020 Telephone Weight and Wellness at [address] [address] Kathryn Bashir, CHIO Social History Tobacco Use [...] PM EDT -[facility] Urologic Nurse Pre-telemedicine Visit Phone Note Genie Alejandre 1975 [x] Patient was not reached: [] No working phone [] Message left to call [phone] ( ) [facility] message sent [] Patient was reached and the following information was reviewed/obtained per protocol: [] Confirmed patient name and date of [] Confirmed address where patient will be at time of call Patient is in [] [place] [] [place] [] Other: [address] [facility] [address] [place] [address] [] Confirmed best number to be reached [...] requested [] Labs/vitals sent for scanning (assistant secretary) and entry (RN) [] Requested 24 [...] 1/4 avocado, 1-2 tbsp dressing 1-2 cups [id number] veggies Write down in a notebook with [...] on filedocumented in this encounter Care Teams Cloth Carrier Relationship Specialty Start Date End Date Brittany Muhammad DO [address] [place] [address] PCP - General Family Medicine 01/23/19 documented as of this encounter
--- OUTSIDE RECORDS SUMMARY | 2024-07-18 02:14 | XMS_ITS | Encounter Summary ---
Author Organization [facility] Address [facility] [place] [address] Care Team Providers Care Director Occupational Name Role Phone Brittany Muhammad Primary Care Provider +1- [phone] Reason for Visit * Reason Comments Medication Refill Encounter Details Date Type Department Care Team (Late st Contact Info) Description 02/12/2020 [place] [address] Olive Liu MD [facility] [place] [address] Social History Tobacco Use Types Packs/Day Years [...] track( 11:17 AM EST) No Kathy Perez, VEOR Note: Direct substitution to meat: Tofu and [...] 1/4 avocado, 1-2 tbsp dressing 1-2 cups [id number] veggies Write down in a notebook with [...] filedocumented in this encounter Care Teams Director Occupational Relationship Specialty Start Date End Date Brittany Muhammad DO [address] [place] [address] PCP - General Family Medicine 01/23/19 documented as of this encounter
--- OUTSIDE RECORDS SUMMARY | 2024-07-18 02:14 | XMS_ITS | Encounter Summary ---
[place] [address] Care Team Providers Care Office Machine Servicer Name Role Phone SabinaAsmitajs Garcia DO Primary Care Provider +1- [phone] Encounter Details Date Type Department Care Team (Latest Contact Info) Description 05/22/2019 12:30 PM EDT Laboratory Appointment Lab [address] [place] [address] S/P thyroidectomy; Multiple thyroid nodules Social History [...] Stimulating Hormone 0.08(L) 0.27 - 4.20 mcIU/mL [facility] Blood specimen (specimen) 05/22/2019 12:17 PM EDT 05/22/2019 12:31 PM EDT Narrative Resulting Agency Comment Spec In Lab Olive Liu MD CHEMISTRY ORDERAB LES Performing Organization Address City/State/[facility] Co de Phone Number [facility] [place] [address] documented in this encounter Visit Diagnoses Diagnosis S/P thyroidectomy Other postprocedural status Multiple thyroid nodules Nontoxic multinodular goiter documented in this encounter Care Teams Office Machine Servicer Relationship Specialty Start Date End Date Brittany Muhammad DO [address] [facility] [place] [address] PCP - General Family Medicine 01/23/19 documented as of this encounter
--- OUTSIDE RECORDS SUMMARY | 2024-07-18 02:14 | XMS_ITS | Encounter Summary ---
[place] [address] Care Team Providers Care Blade Worker Name Role Phone Stefanie Joy APRN Primary Care Provider +1- [phone] Encounter Details Date Type Department Care Team (Late st Contact Info) Description 03/20/2014 Telephone [place] [phone] Nicole Hansen V Social History Tobacco Use [...] on filedocumented in this encounter Care Teams Blade Worker Relationship Specialty Start Date End Date Stefanie Joy APRN [phone] [place] [address] PCP - General 05/08/13 11/26/16 documented as of this encounter
--- OUTSIDE RECORDS SUMMARY | 2024-07-18 02:14 | XMS_ITS | Encounter Summary ---
[place] [address] Care Team Providers Care Tornado Chaser Name Role Phone Stefanie Joy APRN Primary Care Provider +1- [phone] Encounter Details Date Type Department Care Team (Late st Contact Info) Description 03/19/2014 Telephone [place] [address] Nicole Hansen V Social History Tobacco Use [...] on filedocumented in this encounter Care Teams Tornado Chaser Relationship Specialty Start Date End Date Stefanie Joy APRN [address] [place] [address] PCP - General 05/08/13 11/26/16 documented as of this encounter
--- OUTSIDE RECORDS SUMMARY | 2024-07-18 02:14 | XMS_ITS | Encounter Summary ---
Author Organization [facility] Address [place] [address] Care Team Providers Care Rn Placement Name Role Phone Brittany Muhammad Primary Care Provider +1- [phone] Encounter Details Date Type Department Care Team (Late st Contact Info) Description 04/07/2019 10:47 AM EDT Anesthesia Event [place] [address] Lizette Yanez MD [facility] [place] [address] Anesthesia Record Procedure Summary Procedure Name Responsible [...] Removal Incision 09/17/13; lumbar spi ne; 05/29/22 ([facility] cleanup utility RA#[id number]); 1715 ([facility] cleanup utility RA#[id number]) 09/17/13 0000 by Flor Patrick RN 05/29/22 1715 by Joanna Ivory (RETIRED) Peripheral IV Line - Single Lumen 04/07/19; 1011; median vein (underside of arm), left; luzn-dqv-adyxrk catheter system; 22 gauge; no longer indicated; [...] Incision 04/07/19; 1131; neck ; horizontal; 05/29/22 ([facility] cleanup utility RA#[id number]); 1715 ([facility] cleanup utility RA#[id number]) 04/07/19 1131 by Chelle [...] Procedure Summary Date: 04/07/19 Room / Location: [address] MAIN OR Anesthesia Start: 1047 Anesthesia Stop: 1346 Procedures: THYROIDECTOMY, TOTAL OR COMPLETE (WRVU 15.04) (N/A Neck) FACIAL NERVE MONITORING, SETUP LARYNGEAL (WRVU 1.57) (N/A Neck) Diagnosis: (THYROID NODULE) Surgeon: Olive Liu MD Responsible Provider: Lizette Yanez MD Anesthesia Type: general ASA Status: 3 All Anesthesia Providers: Anesthesiologist: Lizette Yanez MD Java J2Ee Application Developer: Hema Slater MD Vitals Value Taken Time BP 155/93 04/07/2019 2:15 PM Temp 36.3 ??C (97.3 ??F) 04/07/2019 1:42 PM Pulse 88 04/07/2019 1:42 PM Resp 14 04/07/2019 2:15 PM SpO2 95 % 04/07/2019 2:15 PM Pain Level Patient Location: PACU/[facility] Level of Consciousness: Awake and Alert Pain [...] by Brock Trujillo MD at [facility] MAIN OR Social History Tobacco Use ??? [...] mg documented in this encounter Care Teams Rn Placement Relationship Specialty Start Date End Date Brittany Muhammad DO [address] [place] [address] PCP - General Family Medicine 01/23/19 documented as of this encounter
--- OUTSIDE RECORDS SUMMARY | 2024-07-18 02:14 | XMS_ITS | Encounter Summary ---
Author Organization [facility] Address [facility] [place] [address] Care Team Providers Care Hose Stripper Name Role Phone Kylah Santizo GIS ENGINEER Primary Care Provider +1- [phone] Reason for Visit * Reason Comments Skin Check dxsn-cpgr-tzgc-scalp Encounter Details Date Type Department Care Team (Late st Contact Info) Description 01/29/2014 10:45 AM EDT Office Visit Dermatology at [address] [place] [address] Yolanda Kwon MD [facility] [place] [address] Eczema (Primary Dx) Discharge Disposition: Home Social [...] Complaint Patient presents with ??? Skin Check uehq-yora-bgvd-scalp The patient is seen at the request [...] affected area for 2 weeks. [facility] ?? Follow up appointment in [...] encounter. Nohemy Kwon MD Section of Dermatology [facility] cc: KYLAH SANTIZO APRN documented in this encounter Plan of Treatment Not on file documented as of this encounter Visit Diagnoses Diagnosis Eczema- Primary Contact dermatitis and other eczema, due to unspecified cause documented in this encounter Care Teams Hose Stripper Relationship Specialty Start Date End Date Kylah Santizo APRN [phone] [place] [address] PCP - General 05/08/13 11/26/16 documented as of this encounter
--- OUTSIDE RECORDS SUMMARY | 2024-07-18 02:14 | XMS_ITS | Encounter Summary ---
Author Organization [facility] [place] [address] Care Team Providers Care Diesel Engine Erector Name Role Phone Joy, Stefaniejs Ramos APRN Primary Care Provider +1- [phone] Encounter Details Date Type Department Care Team (Latest Contact Info) Description 09/17/2013 5:49 AM EST - 09/17/2013 11:50 AM EST Hospital En[place] [address] [facility] [place] [address] Discharge Disposition: Home Social History Tobacco Use [...] them. 3. You should also take an lfex-wpv-iinkols stool softener, such as Colace or Senna, [...] please contact the Spine Center Prescription Lineat [phone]. PRESCRIPTION RENEWAL REQUESTS CAN TAKE UP TO 3 DAYS TO FILL. YOU WILL BE REQUIRED TO DRAFTER GEOLOGICAL YOUR NARCOTIC REFILL PRESCRIPTION IN PERSON AT [facility] OR IT CAN BE MAILED TO [...] fallen off already. PLEASE CALL US AT [phone] TO SPEAK WITH A SPINE CENTER NURSE [...] Important Phone Numbers: Clinical issues, nurse questions: [phone] Medication renewals: [phone] Garcia: [phone] If you need to speak with a Spine Center resident after-hours or on weekends for any of the above listed issues please call [phone] and ask for the Ortho resident on-call. If not urgent, please leave a message with the spine nurse team and your call will be returned within a business day. Follow Up Appointments: 1. You will have follow-up appointments at [facility] as indicated in the ???Future Appointments [...] on the next business day. Please call [phone] if you do not hear from us by that time, as your timely follow-up is very important to us. Future Appointments Date Time Provider Department Center 10/15/2013 10:40 AM Brock Garcia MD [address] CLIN documented in this encounter Medications [...] Garcia MD - 09/17/2013 9:38 AM EST [facility] Operative Note Patient Name: Genie Alejandre : [id number] MR#: [id number] Case Date: 09/17/2013 Surgeon: Surgeon(s) and Role: [...] root was gently mobilized medially using a [place], demonstrating the disk extrusion. A slit annulotomy was created, and the extruded disk material was removed. All the extruded material was removed with the pituitary as were any superficial, free fragments in the disk space. We did not enter deep within the disk space to remove any well fixed disk material. 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
--- OUTSIDE RECORDS SUMMARY | 2024-07-18 02:14 | XMS_ITS | Encounter Summary ---
Author Organization [facility] Address [facility] [place] [address] Care Team Providers Care Color Card Maker Name Role Phone Brittany Muhammad DO Primary Care Provider +1- [phone] Encounter Details Date Type Department Care Team (Late st Contact Info) Description 01/01/2020 Orders [place] [address] Kenia Khanna MD [facility] [place] [address] Papillary microcarcinoma of thyroid; Adult BMI 45.0-49.9 [...] adult documented in this encounter Care Teams Color Card Maker Relationship Specialty Start Date End Date Brittany Muhammad DO [address] [facility] [address] PCP - General Family Medicine 01/23/19 documented as of this encounter
--- OUTSIDE RECORDS SUMMARY | 2024-07-18 02:14 | XMS_ITS | Encounter Summary ---
Author Organization [facility] [place] [address] Care Team Providers Care It Infrastructure Project Manager Name Role Phone SandrasilvianoBrittany reynolds Primary Care Provider +1- [phone] Encounter Details Date Type Department Care Team (Late st Contact Info) Description 02/24/2020 External Results Weight and Wellness at [address] [phone] Hermann Nelson, RN Social History Tobacco Use [...] Procedure Name Priority Date/Time Associated Diagnosis Comments [facility] EXTERNAL RESULT PANEL Routine 11/19/2019 documented in this encounter Results * (ABNORMAL) [facility] External Results (11/19/2019) Glucose Fasting 141(ExtH) Comment:74-106 Blood Urea Nitrogen 18 Creatinine 1.15(ExtH) Comment:0.55-1.02 Sodium 140 Potassium 4.7 Chloride 104 Carbon Dioxide 26 Anion Gap 10 Calcium 9.4 Est Glomerular Filtration Rate 50.8 11/19/2019 Historical Provider POINT OF CARE RICHIE T ORDERABLES documented in this encounter Visit Diagnoses Not on filedocumented in this encounter Care Teams It Infrastructure Project Manager Relationship Specialty Start Date End Date Brittany Muhammad DO [address] [place] [address] PCP - General Family Medicine 01/23/19 documented as of this encounter
--- OUTSIDE RECORDS SUMMARY | 2024-07-18 02:14 | XMS_ITS | Encounter Summary ---
Author Organization [facility] Address [facility] [place] [address] Care Team Providers Care Administrative Representative Name Role Phone Yulia Grullon APRN Primary Care Provider [phone] Encounter Details Date Type Department Care Team (Late st Contact Info) Description 01/22/2019 Ancillary Procedure Radiology Library at [facility] [place] [address] Mark Anthony Watts MD [facility] [place] [address] Social History Tobacco Use Types Packs/Day Years [...] Anthony Watts MD IMG FILM LIBRARY ORDERABLES Performing Organization Address City/State/[facility] Co de Phone Number [place], [place] documented in this encounter Visit Diagnoses Not on filedocumented in this encounter Care Teams Administrative Representative Relationship Specialty Start Date End Date Yulia Grullon, CAS [address] [place] [address] PCP - General Family Medicine 01/09/19 01/22/19 documented as of this encounter
--- OUTSIDE RECORDS SUMMARY | 2024-07-18 02:14 | XMS_ITS | Encounter Summary ---
Author Organization [facility] Address [facility] [place] [address] Care Team Providers Care Carriage Rider Name Role Phone Stefanie Joy APRN Primary Care Provider +1- [phone] Encounter Details Date Type Department Care Team (Late st Contact Info) Description 03/30/2014 1:22 PM EDT - 03/30/2014 11:59 PM EDT Hospital [place] [address] CLINIC, DR YANEZ Back pain Social History [...] of the clinical situation. (Reference-Kikak et al, [id number]) Findings: (prevalence in patients without low back [...] mLs documented in this encounter Care Teams Carriage Rider Relationship Specialty Start Date End Date Stefanie Joy APRN [phone] [place] [address] PCP - General 05/08/13 11/26/16 documented as of this encounter
--- OUTSIDE RECORDS SUMMARY | 2024-07-18 02:14 | XMS_ITS | Encounter Summary ---
Author Organization [facility] Address [facility] [place] [address] Care Team Providers Care Crusher And Binder Operator Name Role Phone Brittany Muhammad DO Primary Care Provider +1- [phone] Encounter Details Date Type Department Care Team (Late st Contact Info) Description 06/11/2019 Orders Only [place] [address] Kenia Khanna MD [facility] [place] [address] Papillary microcarcinoma of thyroid Social History Tobacco [...] thyroid documented in this encounter Care Teams Crusher And Binder Operator Relationship Specialty Start Date End Date Brittany Muhammad DO [address] [place], [place] [address] PCP - General Family Medicine 01/23/19 documented as of this encounter
--- OUTSIDE RECORDS SUMMARY | 2024-07-18 02:14 | XMS_ITS | Encounter Summary ---
Author Organization [facility] [place] [address] Providers Care Ct Scan Technologist Name Role Phone Sabina Brittanyjs Garcia DO Primary Care Provider +1- [phone] Reason for Visit * Reason Onset Date Comments Appointment 05/13/2019 Encounter Details Date Type Department Care Team (Late st Contact Info) Description 05/13/2019 [place] [address] Mita Ross Appointment Social History Tobacco Use [...] on filedocumented in this encounter Care Teams Ct Scan Technologist Relationship Specialty Start Date End Date Brittany Muhammad DO [address] [place] [address] PCP - General Family Medicine 01/23/19 documented as of this encounter
--- OUTSIDE RECORDS SUMMARY | 2024-07-18 02:14 | XMS_ITS | Encounter Summary ---
Author Organization [facility] 1930[facility] [place] [address] Care Team Providers Care Retail Sales Consultant Name Role Phone Joy, Stefaniejs Ramos APRN Primary Care Provider +1- [phone] Encounter Details Date Type Department Care Team (Late st Contact Info) Description 09/17/2013 7:30 AM EST - 09/17/2013 9:58 AM EST Surgery [place] [address] Brock Garcia MD [facility] [place] [address] LAMINOTOMY, DECOMPRESSION, FORAMINOTOMY, LUMBAR (WRVU 12) Social [...] them. 3. You should also take an smwg-zhj-akoqsas stool softener, such as Colace or Senna, [...] please contact the Spine Center Prescription Lineat [phone]. PRESCRIPTION RENEWAL REQUESTS CAN TAKE UP TO 3 DAYS TO FILL. YOU WILL BE REQUIRED TO RUG RENOVATOR YOUR NARCOTIC REFILL PRESCRIPTION IN PERSON AT [...] fallen off already. PLEASE CALL US AT [phone] TO SPEAK WITH A SPINE CENTER NURSE [...] Important Phone Numbers: Clinical issues, nurse questions: [phone] Medication renewals: [phone] Garcia: [phone] If you need to speak with a Spine Center resident after-hours or on weekends for any of the above listed issues please call [phone] and ask for the Ortho resident on-call. [...] on the next business day. Please call [phone] if you do not hear from us by that time, as your timely follow-up is very important to us. Future Appointments Date Time Provider Department Center 10/15/2013 10:40 AM Brock Garcia MD [facility] [address] CLIN documented in this encounter Medications [...] Operative Note Patient Name: Genie Alejandre : [id number] MR#: [id number] Case Date: 09/17/2013 Surgeon: Surgeon(s) and Role: [...] L4 and L5 on the left. A [place] was placed caudal to the L4 lamina, [...] root was gently mobilized medially using a [place], demonstrating the disk extrusion. A slit annulotomy was created, and the extruded disk material was removed. All the extruded material was removed with the pituitary as were any superficial, free fragments in the disk space. We did not enter deep within the disk space to remove any well fixed disk material. 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
--- OUTSIDE RECORDS SUMMARY | 2024-07-18 02:14 | XMS_ITS | Encounter Summary ---
[place] [address] Care Team Providers Care Public Defender Name Role Phone Joy, Stefaniejs Ramos APRN Primary Care Provider +1- [phone] Reason for Visit * Reason Onset Date Comments Pre Procedure Call 09/04/2013 Encounter Details Date Type Department Care Team (Late st Contact Info) Description 09/04/2013 Telephone [place] [phone] Sandra Bran LPN Pre Procedure Call Social [...] left VM message for pt to call [place] nursing office at his first opportunity; advising thatthe need for a return call was time sensitive. [place] Nsg office hrs and phone number provided. [...] filedocumented in this encounter Care Teams Public Defender Relationship Specialty Start Date End Date Stefanie Joy APRN [phone] [place] [address] PCP - General 05/08/13 11/26/16 documented as of this encounter
--- OUTSIDE RECORDS SUMMARY | 2024-07-18 02:14 | XMS_ITS | Encounter Summary ---
Author Organization [facility] [place] [address] Care Team Providers Care Tankage Grinder Name Role Phone Joy, Stefaniejs Ramos APRN Primary Care Provider +1- [phone] Encounter Details Date Type Department Care Team (Latest Contact Info) Description 08/14/2013 12:29 PM EST - 08/14/2013 11:59 PM [facility] Hospital [place] [address] Brock Trujillo MD [facility] [place] [address] HNP (herniated nucleus pulposus), lumbar; Acute leg [...] Comments TYPE AND SCREEN, SDP (FUTURE SURGERY, [facility] SAME DAY PROGRAM ONLY) Routine 08/14/2013 12:41 [...] * Antibody screen (08/14/2013 12:41 PM EST) [facility] Ab Screen Interp Negative CERNER MILLENNIUM Expires at 2359 on: [id number] CERNER MILLENNIUM Blood specimen (specimen) 08/14/2013 12:41 PM EST 08/14/2013 12:45 PM EST Narrative Resulting Agency Comment Spec In Lab Brock Trujillo MD BLOOD BANK LAB ORDER LATOSHA Performing Organization Address City/[facility] [address]/ZIP Co de Phone Number PHAM PATENNIUM * ABO/Rh Typing (08/14/2013 12:41 PM EST) ABORH Type O Pos CERNER MILLENNIUM Blood specimen (specimen) 08/14/2013 12:41 PM EST 08/14/2013 12:45 PM EST Narrative Resulting Agency Comment Spec In Lab Brock Trujillo MD BLOOD BANK LAB ORDER LATOSHA Performing Organization Address City/[facility] [address]/[facility] Co de Phone Number PHAM PATENNIUM * [...] MD HEMATOLOGY ORDERABLE S Performing Organization Address [facility] [address]/[facility] Phone Number [facility] [employer]IUM * Prothrombin Time (08/14/2013 12:40 PM EST) Prothrombin Time 13.7 12.0 - 15.0 sec CERNER MILLENNIUM Comment: [facility] Transfusion Committee Guidelines: INR less than 2.0, PTT less than OR equal to 43.5 seconds, or Fibrinogen greater than or equal to 100 mg/dl indicate adequate procoagulant activity for hemostasis in patients without underlying bleeding disorders. International Normalization Ratio 1.0 0.9 - 1.1 [facility] SIZESEEKERENNIUM Blood specimen (specimen) 08/14/2013 12:40 PM EST 08/14/2013 1:11 PM EST Narrative Resulting Agency Comment Spec In Lab Brock Trujillo MD HEMATOLOGY ORDERABLE S Performing Organization Address [facility] Phone Number CERLAUREL [employer] * (ABNORMAL) Basic Metabolic Panel (non-fasting) (08/14/2013 12:40 PM EST) Glucose 104 60 - 199 mg/dL CERNER SIZESEEKERENNIUM Comment:Diabetes: >=200 mg/d L plus symptoms Blood Urea Nitrogen 17 8 - 18 mg/dL CERNER MILLENNIUM Creatinine 1.21(H) 0.70 - 1.20 mg/dL CERNER MILLENNIUM Comment: Please note that the pediatric reference intervals supplied above were not validated at [facility]. Results from pediatric patients should be interpreted [...] Brock Trujillo MD HEMATOLOGY ORDERABLE S [facility] documented in this encounter Visit Diagnoses Diagnosis HNP (herniated nucleus pulposus), lumbar Displacement of lumbar intervertebral disc without myelopathy Acute leg pain Pain in limb documented in this encounter Care Teams Tankage Grinder Relationship Specialty Start Date End Date Stefanie Joy APRN [address] [place] [address] PCP - General 05/08/13 11/26/16 documented as of this encounter
--- OUTSIDE RECORDS SUMMARY | 2024-07-18 02:14 | XMS_ITS | Encounter Summary ---
Author Organization [facility] Address [facility] Prashant [place] [id number] Care Team Providers Care Yard Manager Name Role Phone MurielmagdyBrittany choi Primary Care Provider +1- [phone] Reason for Referral * Consultation (Routine) - Closed Specialty Diagnoses / Procedures Referred By Contac t Referred To Contact General Surgery Diagnoses Thyroid cyst Kenia Khanna MD [facility] [place] [address] Olive Liu MD [facility] [place] [address] Referral ID Status Reason Start Date Expiration Date V isits Requested Visits Authorized [id number] Closed Consult, Test & Treat 01/24/2019 01/24/2020 1 1 Reason for Visit * Consultation (Urgent) - Specialty Diagnoses / Procedures Referred By Contac t Referred To Contact Endocrinology Diagnoses thyroid mass Yulia Grullon APRN [address] [place] [address] [facility] Endocrinology [address] [place] [id number] Referral ID Status Reason Start Date Expiration Date V isits Requested Visits Authorized [id number] Consult, Test & Treat [facility] 01/09/2019 01/09/2020 6 6 Encounter Details Date Type Department Care Team (Late st Contact Info) Description 01/23/2019 1:00 PM EDT Office [place] [address] Mark Anthony Watts MD [facility] [place] [address] Kenia Khanna MD [facility] [place] [address] Thyroid nodule; Thyroid cyst Social History Tobacco [...] CT scan 01/22/2019 with Pulmonology (Yinka) at [facility] which reportedly did have tracheal deviation and does endorse dyspnea.. Endorses dysphagia with the head turned to the left. Social Hx: Lives in [facility] Former smoker- quit in 2005 Infrequent [...] Office Visit from 01/23/2019 in Endocrinology at [facility] Weight 114.3 kg (252 lb) Height 157.5 [...] nodule Case discussed and seen with staff Steel Erector Mark Anthony Watts MD. Called pt to let her knowresults of TSH and BMP. Kenia Khanna MD PGY-4 [facility] Endocrinology Fellow Pager #[phone] * Kenia Khanna - 01/23/2019 1:00 PM EDT ENDOCRINOLOGY THYROID ULTRASOUND REPORT Patient:Genie Alejandre, [id number] Date of exam: 01/23/2019 Indication: large L [...] Procedure Name Priority Date/Time Associated Diagnosis Comments NON-NANOTECHNOLOGY TECHNICIAN FINAL REPORT Routine 01/23/2019 1:50 PM EDT TSH Routine 01/23/2019 1:11 PM EDT Thyroid nodule BASIC METABOLIC PANEL Routine 01/23/2019 1:11 PM EDT Thyroid nodule CYTOPATHOLOGY NON-GYNECOLOGICAL Routine 01/23/2019 8:28 AM EDT Thyroid nodule documented in this encounter Results * Non-Trimming Operator Final Report (01/23/2019 1:50 PM EDT) Diagnosis Discussion [id number] ? Location: 5C The signing pathologist has (i) examined the relevant preparation(s) for the specimen(s) and (ii) rendered or confirmed the diagnosis(es). . ? Addendum ADDENDUM DISCUSSION SPECIAL TEST PERFORMED: Test: ??[facility]YROSEQ [facility] Case: ??[id number] Performing Lab: ??THYROSEQ Performing Lab Case: ??[id number] Reported by Georgette Chapman MD Date reported: ??02/10/2019 For the full text of the Thyroseq report, please refer to the scanned doc tab in the electronic health record (eDH). Electronically signed by: ??Brianna Ortiz MD Verified: ??02/11/2019 ?Pathologist Performed at: ??-[facility], [place], [place] ? Non-Trimming Operator Final DIAGNOSIS Atypia of Undetermined Significance Electronically signed by: ??Angel TAVARES, Brianna Perrin Verified: ??01/27/2019 ?Pathologist Performed at: ??-[facility], [facility], [place], [place] DISCUSSION Thyroid, left (US-guided FNA, assisted): Atypia of Undetermined Significance (see note). Paucicellular aspirate containing a few atypical but poorly preserved follicular cells. Note: Cell block was examined. Clinical correlation is recommended. Molecular testing is pending and results will be reported subsequently. Reference: Jono MCFADDEN, Gilbert ES. The [place] System for Reporting Thyroid Cytopathology. [place]: Guillen; 2018. CLINICAL INFORMATION Specimen Source : [...] for final interpretation. 02/11/2019 8:51 AM EDT [facility] THYROID STRUCTURE / Unknown 01/23/2019 1:50 PM EDT 01/23/2019 1:50 PM EDT Mark Anthony Watts MD PATHOLOGY/CYTOLOG Y ORDERABLES [facility] [place] [address] * Basic Metabolic Panel (non-fasting) (01/23/2019 1:11 PM EDT) Glucose 100 65 - 199 mg/dL [facility] Comment:Diabetes: >=200 mg/d L plus symptoms Blood Urea Nitrogen 16 8 - 18 mg/dL [facility] Creatinine 1.00 0.70 - 1.20 mg/dL [facility] Sodium 139 135 - 145 mmol/L [facility] Potassium 4.2 3.5 - 5.0 mmol/L [facility] Comment: Please note: ??Patients with WBC >100,000 may have falsely elevated Potassium levels. ??For accurate Potassium quantification in these patients send serum separator tube (gold top) for subsequent determinations. ??Contact the Clinical Chemistry Laboratory if there are any questions. Chloride 100 98 - 107 mmol/L [facility] Carbon Dioxide 28 22 - 31 mmol/L [facility] Anion Gap 11 5 - 15 mmol/L [facility] Calcium 9.9 8.5 - 10.5 mg/dL [facility] Est Glomerular Filtration Rate 68 >=60 mL/min/1. 73 m?? [facility] Comment: The eGFR was calculated using the CKD-EPI equation. As with all creatinine based estimates of kidney function, eGFR values calculated with the CKD-EPI equation are not accurate in patients with acute kidney failure, extremes of body mass or the acutely ill. http://[employer]/[facility]kf eGFR 79 >=60 mL/min/1. 73 m?? [facility] Comment: The eGFR was calculated using the CKD-EPI equation. As with all creatinine based estimates of kidney function, eGFR values calculated with the CKD-EPI equation are not accurate in patients with acute kidney failure, extremes of body mass or the acutely ill. http://[employer]/DHnkf Blood specimen (specimen) 01/23/2019 1:11 PM EDT 01/23/2019 1:22 PM EDT Narrative Resulting Agency Comment Spec In Lab Mark Anthony Watts MD CHEMISTRY ORDERAB LES [facility] [place] [id number] * TSH (01/23/2019 1:11 PM EDT) Thyroid Stimulating Hormone 2.85 0.27 - 4.20 mcIU/mL [facility] Blood specimen (specimen) 01/23/2019 1:11 PM EDT 01/23/2019 1:22 PM EDT Narrative Resulting Agency Comment Spec In Lab Mark Anthony Watts MD CHEMISTRY ORDERAB LES Performing Organization Address City/[facility]/ZIP Co de Phone Number [facility] [place] [address] * Cytopathology Non-Gynecological (01/23/2019 8:28 AM EDT) AP Specimen 01/23/2019 8:28 AM EDT 01/23/2019 8:28 AM EDT Narrative [facility] - 01/23/2019 8:28 AM EDT Specimen requisition ordered. ??Separate Pathology report to follow Mark Anthony Watts MD PATHOLOGY/CYTOLOG Y ORDERABLES Performing Organization Address City/[facility]/[place] [address] documented in this encounter Visit Diagnoses Diagnosis Thyroid nodule Nontoxic uninodular goiter Thyroid cyst Cyst of thyroid documented in this encounter Care Teams Yard Manager Relationship Specialty Start Date End Date Brittany Muhammad DO [address] [place] [address] PCP - General Family Medicine 01/23/19 documented as of this encounter
--- OUTSIDE RECORDS SUMMARY | 2024-07-18 02:14 | XMS_ITS | Encounter Summary ---
Author Organization [facility] Address [facility] [place] [address] Care Team Providers Care Manager Pathology Name Role Phone Brittany Muhammad DO Primary Care Provider +1- [phone] Reason for Referral * Consultation (Routine) - Closed Specialty Diagnoses / Procedures Referred By Cash reese Referred To Contact Weight and Wellness Diagnoses Adult BMI 45.0-49.9 kg/sq m Kenia Khanna MD [facility] [place] [address] [facility] [address] [place] [address] Referral ID Status Reason Start Date Expiration Date V isits Requested Visits Authorized [id number] Closed Consult, Test & Treat 10/24/2019 10/23/2020 1 1 Encounter Details Date Type Department Care Team (Latest Contact Info) Description 10/24/2019 9:30 AM EST Office [place] [address] Kenia Khanna MD [facility] [place] [address] Adult BMI 45.0-49.9 kg/sq m; [...] this encounter Progress Notes * Kenia Khanna - 10/24/2019 9:30 AM EST Subjective: [...] CT scan 01/22/2019 with Pulmonology (Yinka) at [facility] which reportedly did have tracheal deviation and [...] is not budging. Social Hx: Lives in [facility] Former smoker- quit in 2005 Infrequent [...] consider GLP-1 agonist Case discussed with staff Tax Agent Juan Albright DO. Pt prefers to be reached at cell #[phone]. 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 Kenia Khanna MD PGY-5 [facility] Endocrinology Fellow Pager #[phone] * Kehinde Albright DO - 10/24/2019 9:30 AM EST I have seen the patient and reviewed Dr Khanna's history and I agree with the details as written. Theassessment and plan were formulated in discussion with me and I agree with them as documented. Kehinde Albright DO, MS Net Applications Developerancillary services manager therapy Section of Endocrinology [facility] documented in this encounter Plan of Treatment [...] Free T4 1.35 0.93 - 1.70 ng/dL [facility] Blood specimen (specimen) 03/02/2020 12:59 PM EDT 03/02/2020 1:16 PM EDT Narrative Resulting Agency Comment Spec In Lab Kehinde Albright DO CHEMISTRY ORDERABLES [facility] [place] [address] * (ABNORMAL) Basic Metabolic Panel (non-fasting) (03/02/2020 12:59 PM EDT) Glucose 168 65 - 199 mg/dL [facility] Comment:Diabetes: >=200 mg/d L plus symptoms Blood Urea Nitrogen 16 8 - 18 mg/dL [facility] Creatinine 1.23(H) 0.70 - 1.20 mg/dL [facility] Sodium 133(L) 135 - 145 mmol/L [facility] Potassium 4.0 3.5 - 5.0 mmol/L [facility] Comment: Please note: ??Patients with WBC >100,000 may have falsely elevated Potassium levels. ??For accurate Potassium quantification in these patients send serum separator tube (gold top) for subsequent determinations. ??Contact the Clinical Chemistry Laboratory if there are any questions. Chloride 97(L) 98 - 107 mmol/L [facility] Carbon Dioxide 22 22 - 31 mmol/L [facility] Anion Gap 14 5 - 15 mmol/L [facility] Calcium 9.8 8.5 - 10.5 mg/dL [facility] Est Glomerular Filtration Rate 53(L) >=60 mL/min/1. 73 m?? [facility] Comment: The eGFR was calculated using the CKD-EPI equation. As with all creatinine based estimates of kidney function, eGFR values calculated with the CKD-EPI equation are not accurate in patients with acute kidney failure, extremes of body mass or the acutely ill. http://P[employer]/[facility] LINDSAYnkf eGFR 61 >=60 mL/min/1. 73 m?? [facility] Comment: The eGFR was calculated using the CKD-EPI equation. As with all creatinine based estimates of kidney function, eGFR values calculated with the CKD-EPI equation are not accurate in patients with acute kidney failure, extremes of body mass or the acutely ill. http://P[employer]/DHnkf Blood specimen (specimen) 03/02/2020 12:59 PM EDT 03/02/2020 1:16 PM EDT Narrative Resulting Agency Comment Spec In Lab Kehinde Albright DO CHEMISTRY ORDERABLES [facility] [place] [address] documented in this encounter Visit Diagnoses Diagnosis Adult BMI 45.0-49.9 kg/sq m Body Mass Index 45.0-49.9, adult PCOS (polycystic ovarian syndrome) Polycystic ovaries Papillary microcarcinoma of thyroid documented in this encounter Care Teams Manager Pathology Relationship Specialty Start Date End Date Brittany Muhammad DO [address] [place] [address] PCP - General Family Medicine 01/23/19 documented as of this encounter
--- OUTSIDE RECORDS SUMMARY | 2024-07-18 02:14 | XMS_ITS | Encounter Summary ---
Author Organization [facility] Address [facility] [place] [address] Care Team Providers Care Wire Winding Machine Tender Name Role Phone RubioBrittany reynolds Jose BARRETO Primary Care Provider +1- [phone] Encounter Details Date Type Department Care Team (Latest Contact Info) Description 04/07/2019 9:00 AM EDT - 04/07/2019 2:47 PM EDT Hospital En[place] [address] Amara Shultz MD [facility] [place] [address] Discharge Disposition: Home Social History Tobacco Use [...] Take NSAIDS and/or Tylenol every 6 hours [id number] for the first 3-5 days following surgery [...] will be mailed to you Please call [phone] to confirm the date and time of [...] is just fine. Phone number for questions: [phone] before 5 PM on weekdays [phone] after 5 PM and on weekends/holidays. Ask for the general surgery resident automotive parts person. documented in this encounter Medications at Time [...] Shultz MD - 04/07/2019 1:22 PM EDT [facility] Operative Note Patient Name: Genie Alejandre : [id number] MR#: [id number] Case Date: 04/07/2019 Surgeon: Surgeon(s) and Role: [...] Collection Info Order Time SPECIMEN TO PATHOLOGY 04949 THYROID NODULE left lobe of thyroid resection 04/07/2019 12:22 PM Time specimen removed from patient: 12:22 PM Number of tissue samples (in container) 1 SPECIMEN TO PATHOLOGY 97897 THYROID NODULE right lobe of thyroid excision [...] and FNA demonstrating atypia of undetermined significance ([place] 3) cytology in a paucicellular specimen of [...] anesthesia was achieved by anesthesiology with the 2NGageUtronic recurrent laryngeal nerve monitoring system. A natural [...] Operative Note Patient Name: Genie Alejandre : [id number] MR#: [id number] Case Date: 04/07/2019 Surgeon: Surgeon(s) and Role: [...] Collection Info Order Time SPECIMEN TO PATHOLOGY 91915 THYROID NODULE left lobe of thyroid resection 04/07/2019 12:22 PM Time specimen removed from patient: 12:22 PM Number of tissue samples (in container) 1 SPECIMEN TO PATHOLOGY 72147 THYROID NODULE right lobe of thyroid excision [...] PM EDT 04/07/2019 1:05 PM EDT Narrative [facility] - 04/07/2019 1:05 PM EDT Specimen requisition ordered. ??Separate Pathology report to follow Amara Shultz MD PATHOLOGY/CYTOLOG Y ORDERABLES [facility] [place] [address] * Surgical Pathology Report (04/07/2019 12:22 PM EDT) Pathologist [facility] Final Diagnosis [id number] ? Location: SDP; SD35; A The signing [...] Maguire DO Verified: ??04/10/2019 ?Pathologist Performed at: ??-[facility] Dept. of Pathology, [place], [place] ADDITIONAL STUDIES Immunohistochemistry Studies: Formalin-fixed, paraffin-embedded [...] Inking: The thyroid capsule is inked black. Delivery Engineer sections in 32 cassettes as follows: ?A1-A2: ??All of the smaller lesion ?A3: ??Delivery Engineer of normal parenchyma and possible additional inferior nodule ?A4-A32: ??Delivery Engineer sections, to include all of the capsule, [...] Inking: The thyroid capsule is inked black. Delivery Engineer sections in 5 cassettes as follows: ?B1-B4: upper pole nodule ?B5: ??Additional product representative of normal thyroid parenchyma ??ejr 04/10/2019 10:23 AM EDT [facility] THYROID STRUCTURE / Unknown 04/07/2019 12:22 PM EDT 04/07/2019 12:22 PM EDT THYROID STRUCTURE / Unknown 04/07/2019 12:22 PM EDT 04/07/2019 12:22 PM EDT Amara Shultz MD PATHOLOGY/CYTOLOG Y ORDERABLES [facility] [place] [address] * Specimen to Pathology (04/07/2019 12:22 PM EDT) AP Specimen 04/07/2019 12:2 2 PM EDT 04/07/2019 12:22 PM EDT Narrative [facility] - 04/07/2019 12:22 PM EDT Specimen requisition ordered. ??Separate Pathology report to follow Amara Shultz MD PATHOLOGY/CYTOLOG Y ORDERABLES [facility] [place] [address] * POCT urine (04/07/2019) POC Urine HCG [...] Routine documented in this encounter Care Teams Wire Winding Machine Tender Relationship Specialty Start Date End Date Brittany Muhammad DO [address] [place] [address] PCP - General Family Medicine 01/23/19 documented as of this encounter
--- OUTSIDE RECORDS SUMMARY | 2024-07-18 02:14 | XMS_ITS | Encounter Summary ---
Author Organization [facility] Address [facility] [place] [address] Care Team Providers Care Biologist Aide Name Role Phone Marly Joyne Cami CAS Primary Care Provider +1- [phone] Encounter Details Date Type Department Care Team (Late st Contact Info) Description 09/17/2013 7:30 AM EST Anesthesia Event [place] [address] Cy Rockwell MD [facility] DR [place] [address] Anesthesia Record Procedure Summary Procedure Name Responsible [...] Pulmonary Assessment: Dental Assessment: - normal exam [facility] Assessment: Anesthesia Plan: ASA [...] consented to blood products. Plan discussed with [employer]. [facility]. Assessment: documented in this [...] mg documented in this encounter Care Teams Biologist Aide Relationship Specialty Start Date End Date Stefanie Joy, CRUSHER MACHINE OPERATOR [address] [place] [address] PCP - General 05/08/13 11/26/16 documented as of this encounter
--- OUTSIDE RECORDS SUMMARY | 2024-07-18 02:14 | XMS_ITS | Encounter Summary ---
Author Organization [facility] Address [facility] [place] [address] Care Team Providers Care Well Puller Head Name Role Phone Brittany Muahmmad DO Primary Care Provider +1- [phone] Encounter Details Date Type Department Care Team (Late st Contact Info) Description 02/10/2019 External Results Medical Records [facility] [place] [address] Provider, Scanning Social History Tobacco Use Types [...] filedocumented in this encounter Care Teams Well Puller Head Relationship Specialty Start Date End Date KreBrittany nieves DO [address] [place] [place] [address] PCP - General Family Medicine 01/23/19 documented as of this encounter
--- OUTSIDE RECORDS SUMMARY | 2024-07-18 02:14 | XMS_ITS | Encounter Summary ---
Author Organization [facility] Address [facility] [place] [address] Care Team Providers Care Optical Brightener Maker Helper Name Role Phone SabinaAsmitajs Garcia DO Primary Care Provider +1- [phone] Reason for Visit * Reason Comments Establish Care obesity/weight manag ement * Consultation (Routine) - Closed Specialty Diagnoses / Procedures Referred By Cash t Referred To Contact Weight and Wellness Diagnoses Adult BMI 45.0-49.9 kg/sq Kenia Cedillo MD [facility] [place] [address] [facility] [address] [place] [address] Referral ID Status Reason Start Date Expiration Date V isits Requested Visits Authorized [id number] Closed Consult, Test & Treat 10/24/2019 10/23/2020 1 1 Encounter Details Date Type Department Care Team (Latest Contact Info) Description 02/27/2020 8:30 AM EDT TH Visit (TeleHealth) Weight and Wellness at [facility] [address] [place] [address] Crystal Holley, LEGAL ACTIVITY ADJUDICATOR [facility] [address]EL[address] [place] [address] Class 3 severe obesity with [...] you have any questions- send me a [employer] message anytime. Goals Addressed This Visit's Progress [...] [facility] regarding treatment of sleep apnea ??? stress [...] 02/27/2020 8:30 AM EDT [facility] [place] Patient provided verbal consent prior to initiation [...] Genie Alejandre to the [facility] [place] for a consultation for obesity management. I reviewed past records including notes, labs, and other evaluation and discussed them with the patient. SUMMARY OF VISIT AND ASSESSMENT: Genie Alejandre presents to the [facility] for a consultative visit regarding obesity management. [...] not treated, has pending sleep consult at [facility], has sleep apnea but could not tolerate mask in the past ?? Circadian Pattern - ?? Disordered Eating ++ binge eating, emotional eating ?? Inactivity ++ ?? Stress and too much cortisol: the prolonged cortisol release associated with chronic stress is strongly correlated with the development of obesity ++ Following were dicussed: ?? Obesity is a chronic disease requiring termite control service representative management. ?? Obesity is associated with increased [...] [facility] regarding treatment of sleep apnea ??? stress [...] Lipid risk assessment: The ASCVD Risk score ([place] JUANA Philip, et al., 2013) failed to [...] modifications of obesity and co-morbid conditions at [facility]. Weight History: Genie has been heavy her whole life. She is the heaviest she has ever been now. Jayla's side of the family is heavy on that side. Over the past few years she has gained. As she has added meds it has gotten worse. She is frustrated and discouraged. [facility] Initial Responses 02/25/2020 URICA - Readiness Score [...] TFEQ-Emotional Eating 61.11 Food Insecurity Score 3 [place] Category I Result 0 [place] Category II Result 1 (Positive) [place] Category III 1 (Positive) [place] Sleep Apnea Total 2 (High Risk) Schooling [...] Has referral in for sleep eval at [facility] Circadian: normal day/night schedule- disabled no specific schedule Sleep:How many hours a night? frequency of awakenings at night-a few times if has trouble falling asleep [place]: has sleep apnea Movement: Is ambulation limited most or all of the time? no Tolerance: she can climb a flight of stairs What doing now? Walking (10-15 min am, mid day for 20 min, late afternoon 30-45 min) Resistance training? None Done in past? Not much REVIEW OF SYSTEMS: Bolded responses below are answered positive CONSTITUTIONAL: fatigue, night sweats, fever, chills FRUIT SHIPPER/Neurological: DANGELO- rare migraine, has imitrex uses rarely, seizures, stroke or TIA HEENT: Changes in vision, history of glaucoma CV: history of NM, previous PCI/ PTCA, cardiac surgery, Previous stress [...] Renal disease, kidney stones, hematuria, stress incontinence. SET UP MECHANIC CROWN ASSEMBLY MACHINE: LMP, menorrhagia, menopause, uses for OCP or [...] 75 minutes of which were spent in [id number] discussion/counseling described above re obesity, nutrition and [...] [facility] regarding treatment of sleep apnea documented as of this encounter Visit Diagnoses Diagnosis Class 3 severe obesity with serious comorbidity and body mass index (BMI) of 45.0 to 49.9 in adult, unspecified obesity type Pre-diabetes Other abnormal glucose CARLOS (obstructive sleep apnea) Obstructive sleep apnea (adult) (pediatric) Insulin resistance Dysmetabolic Syndrome X Depression, unspecified depression type documented in this encounter Care Teams Optical Brightener Maker Helper Relationship Specialty Start Date End Date Brittany Muhammad DO [address] [place] [address] PCP - General Family Medicine 01/23/19 documented as of this encounter
--- OUTSIDE RECORDS SUMMARY | 2024-07-18 02:14 | XMS_ITS | Encounter Summary ---
[place] [address] Care Team Providers Care Dramatic Arts Historian Name Role Phone Brittany Muhammad DO Primary Care Provider +1- [phone] Encounter Details Date Type Department Care Team (Latest Contact Info) Description 03/02/2020 12:40 PM EDT Laboratory Appointment Lab [address] [place] [id number] Papillary microcarcinoma of thyroid; PCOS (polycystic ovarian [...] [facility] regarding treatment of sleep apnea documented as [...] EDT) Glucose 168 65 - 199 mg/dL [facility] Comment:Diabetes: >=200 mg/d L plus symptoms Blood Urea Nitrogen 16 8 - 18 mg/dL [facility] Creatinine 1.23(H) 0.70 - 1.20 mg/dL [facility] Sodium 133(L) 135 - 145 mmol/L [facility] Potassium 4.0 3.5 - 5.0 mmol/L [facility] Comment: Please note: ??Patients with WBC >100,000 may have falsely elevated Potassium levels. ??For accurate Potassium quantification in these patients send serum separator tube (gold top) for subsequent determinations. ??Contact the Clinical Chemistry Laboratory if there are any questions. Chloride 97(L) 98 - 107 mmol/L [facility] Carbon Dioxide 22 22 - 31 mmol/L [facility] Anion Gap 14 5 - 15 mmol/L [facility] Calcium 9.8 8.5 - 10.5 mg/dL [facility] Est Glomerular Filtration Rate 53(L) >=60 mL/min/1. 73 m?? [facility] Comment: The eGFR was calculated using the CKD-EPI equation. As with all creatinine based estimates of kidney function, eGFR values calculated with the CKD-EPI equation are not accurate in patients with acute kidney failure, extremes of body mass or the acutely ill. [email or web address] eGFR 61 >=60 mL/min/1. 73 m?? [facility] Comment: The eGFR was calculated using the CKD-EPI equation. As with all creatinine based estimates of kidney function, eGFR values calculated with the CKD-EPI equation are not accurate in patients with acute kidney failure, extremes of body mass or the acutely ill. [email or web address] Blood specimen (specimen) 03/02/2020 12:59 PM EDT 03/02/2020 1:16 PM EDT Narrative Resulting Agency Comment Spec In Lab Kehinde Albright DO CHEMISTRY ORDERABLES [facility] [place] [address] * (ABNORMAL) TSH (03/02/2020 12:59 PM EDT) Thyroid Stimulating Hormone 56.60(H) 0.27 - 4.20 mcIU/mL [facility] Blood specimen (specimen) 03/02/2020 12:59 PM EDT 03/02/2020 1:16 PM EDT Narrative Resulting Agency Comment Spec In Lab Marco A Benoit MD CHEMISTRY ORDERABLES Performing Organization Address City/[facility]/ZIP Co de Phone Number [facility] [place] [address] * Thyroglobulin (03/02/2020 12:59 PM EDT) Thyroglobulin 0.6 <=54.9 ng/mL [facility] Thyroglob Ab <20.0 0.0 - 40.0 IU/mL [facility] Blood specimen (specimen) 03/02/2020 12:59 PM EDT 03/03/2020 7:26 AM EDT Narrative Resulting Agency Comment Spec In Lab Marco A Benoit MD LAB SEND OUT ORDERAB LES Performing Organization Address City/[facility]/ZIP Co de Phone Number [facility] [place] [address] * T4, free (03/02/2020 12:59 PM EDT) Free T4 1.35 0.93 - 1.70 ng/dL [facility] Blood specimen (specimen) 03/02/2020 12:59 PM EDT 03/02/2020 1:16 PM EDT Narrative Resulting Agency Comment Spec In Lab Kehinde Albright DO CHEMISTRY ORDERABLES Performing Organization Address City/[facility] Co de Phone Number [facility] [place] [address] documented in this encounter Visit Diagnoses Diagnosis Papillary microcarcinoma of thyroid PCOS (polycystic ovarian syndrome) Polycystic ovaries documented in this encounter Care Teams Dramatic Arts Historian Relationship Specialty Start Date End Date Brittany Muhammad DO [address] [place] [address] PCP - General Family Medicine 01/23/19 documented as of this encounter
--- OUTSIDE RECORDS SUMMARY | 2024-07-18 02:14 | XMS_ITS | Encounter Summary ---
Author Organization [facility] Address [facility] [place] [address] Care Team Providers Care Pharmacy Informatics Manager Name Role Phone Brittany Muhammad DO Primary Care Provider +1- [phone] Encounter Details Date Type Department Care Team (Late st Contact Info) Description 01/29/2019 Telephone [place] [address] Kenia Khanna MD [facility] DR [place] [address] Social History Tobacco Use Types Packs/Day Years [...] secondary to thecyst. Kenia Khanna MD PGY-4 [facility]ocr[facility] Fellow Pager #[phone] documented in this encounter Plan of Treatment Not on file documented as of this encounter Visit Diagnoses Not on filedocumented in this encounter Care Teams Pharmacy Informatics Manager Relationship Specialty Start Date End Date Brittany Muhammad DO [address] [facility] [place] [address] PCP - General Family Medicine 01/23/19 documented as of this encounter
--- OUTSIDE RECORDS SUMMARY | 2024-07-18 02:14 | XMS_ITS | Encounter Summary ---
[place] [address] Care Team Providers Care Cartographic Engineer Name Role Phone Stefanie Joy APRN Primary Care Provider +1- [phone] Reason for Visit * Reason Onset Date Comments Questions 09/17/2013 asking if inpt d erm consult could be performed following surgery today Encounter Details Date Type Department Care Team (Late st Contact Info) Description 09/17/2013 Telephone [place] [address] Britt Lipscomb, RN Questions (asking if inpt [...] be performed. Call returned to Racheal, referral school secretary for PCP, at the PCP's request; advising that the derm consult would not be able to be performed today during brief stay in [place]. documented in this encounter Plan of Treatment Not on file documented as of this encounter Visit Diagnoses Not on filedocumented in this encounter Care Teams Cartographic Engineer Relationship Specialty Start Date End Date Stefanie Joy APRN [phone] [place] [address] PCP - General 05/08/13 11/26/16 documented as of this encounter
--- OUTSIDE RECORDS SUMMARY | 2024-07-18 02:14 | XMS_ITS | Encounter Summary ---
Author Organization [facility] Address [facility] [place] [address] Care Team Providers Care Liquid Loader Name Role Phone RubioBrittany reynolds Jose BARRETO Primary Care Provider +1- [phone] Reason for Visit * Reason Comments Establish Care * Consultation (Routine) - Closed Specialty Diagnoses / Procedures Referred By Cash reese Referred To Contact General Surgery Diagnoses Thyroid cyst Kenia Khanna MD [facility] [place] [address] Olive Liu MD [facility] [place] [address] Referral ID Status Reason Start Date Expiration Date V isits Requested Visits Authorized [id number] Closed Consult, Test & Treat 01/24/2019 01/24/2020 1 1 Encounter Details Date Type Department Care Team (Late st Contact Info) Description 02/27/2019 10:15 AM EDT Office [place] [address] Olive Liu MD [facility] [address] Multiple thyroid nodules Social History Tobacco Use [...] [facility] 1.9cm nodule in the right thyroid and the predominantly cystic nodule measuring >6cm occupying most of the left thyroid. There is not a reported substernal component. Fine needle aspiration biopsy of the solid component of the mass has been performed by endocrinology and cytology was atypia of undetermined significance ([place] 3). Molecular testing was attempted, but there [...] LUMBAR performed by Brock Trujillo MD at [facility] OR Current Outpatient Medications on File [...] and FNA demonstrating atypia of undetermined significance ([place] 3) cytology in a paucicellular specimen of [...] any concerns while she is in recovery. [facility] Data Body mass index is 47.48 kg/m??. Race: Patient Ethnicity & Race Ethnic Group Patient Race Not nor White Prior neck irradiation: no Prior anterior neck surgery: no Pre-operative laryngoscopy: no Anti-coagulation meds (aspirin, warfarin, clopidogrel, heparin, oral thrombin or factor Xa inhibitors): no Substernal component: no Symptoms of compression: yes FNA: yes FNA Classification: [place] 3 documented in this encounter Plan of Treatment Not on file documented as of this encounter Visit Diagnoses Diagnosis Multiple thyroid nodules Nontoxic multinodular goiter documented in this encounter Care Teams Liquid Loader Relationship Specialty Start Date End Date Brittany Muhammad DO [address] [place] [address] PCP - General Family Medicine 01/23/19 documented as of this encounter
--- OUTSIDE RECORDS SUMMARY | 2024-07-18 02:14 | XMS_ITS | Encounter Summary ---
Author Organization [facility] [place] [address] Care Team Providers Care Mba Intern Name Role Phone Brittany Muhammad DO Primary Care Provider +1- [phone] Encounter Details Date Type Department Care Team (Late st Contact Info) Description 02/26/2020 Telephone Weight and Wellness at [address] [address] Kathryn Bashir, CHIO Social History Tobacco Use [...] Notes * Telephone Encounter - Kathryn Bashir PIPE CUTTER - 02/26/2020 10:47 AM EDT [facility] Hand Rug Braider Pre-telemedicine Visit Phone Note Genie Alejandre 1975 [...] working phone [] Message left to call [phone] [x] Patient was reached and the following information was reviewed/obtained per protocol: [x] Confirmed patient name and date of [x] Confirmed telemedicine software downloaded and functioning [x] Confirmed location of patient. [place] is in [] [place] [x] [place] [x] Confirmed best number to be reached is: [phone] REVIEW: [x] Review of patient medications completed [x] NEW medications include: Claritin [x] Confirmed preferred pharmacy: [place], [place] [] Prescriptions ready to be signed: [x] Documented self reported vital signs from [] Home [] PCP [] outside PCP Date: pts scale not working. Did see PCP on weight was 260 [] Weight [] Height [] Blood pressure [] Pulse [x] Asked about any recent labs/studies [] No [x] Yes: at [facility] Internal Medicine [phone] [] Labs/vitals requested [] Labs/vitals sent for scanning (bilingual secretary) and entry (RN) [x] Requested 24 [...] on filedocumented in this encounter Care Teams Mba Intern Relationship Specialty Start Date End Date Brittany Muhammad DO [address] [place] [address] PCP - General Family Medicine 01/23/19 documented as of this encounter
--- OUTSIDE RECORDS SUMMARY | 2024-07-18 02:14 | XMS_ITS | Encounter Summary ---
Author Organization Count Includes [facility] Address [facility] [place] [address] Care Team Providers Care Equipment Operation Instructor Name Role Phone MurielBrittany nieves Jose BARRETO Primary Care Provider +1- [phone] Encounter Details Date Type Department Care Team (Late st Contact Info) Description 04/07/2019 10:28 AM EDT - 04/07/2019 12:56 PM EDT Surgery [place] [address] Amara Shultz MD [facility] [place] [address] THYROIDECTOMY, TOTAL OR COMPLETE (WRVU 15.04) Social [...] Take NSAIDS and/or Tylenol every 6 hours [id number] for the first 3-5 days following surgery [...] will be mailed to you Please call [phone] to confirm the date and time of [...] is just fine. Phone number for questions: [phone] before 5 PM on weekdays [phone] after 5 PM and on weekends/holidays. Ask for the general surgery resident application design engineer. documented in this encounter Medications at Time [...] Shultz MD - 04/07/2019 1:22 PM EDT [facility] Operative Note Patient Name: Genie Alejandre : [id number] MR#: [id number] Case Date: 04/07/2019 Surgeon: Surgeon(s) and Role: [...] Collection Info Order Time SPECIMEN TO PATHOLOGY 04179 THYROID NODULE left lobe of thyroid resection 04/07/2019 12:22 PM Time specimen removed from patient: 12:22 PM Number of tissue samples (in container) 1 SPECIMEN TO PATHOLOGY 56718 THYROID NODULE right lobe of thyroid excision [...] and FNA demonstrating atypia of undetermined significance ([place] 3) cytology in a paucicellular specimen of [...] anesthesia was achieved by anesthesiology with the [employer] recurrent laryngeal nerve monitoring system. A natural [...] Operative Note Patient Name: Genie Alejandre : [id number] MR#: [id number] Case Date: 04/07/2019 Surgeon: Surgeon(s) and Role: [...] Collection Info Order Time SPECIMEN TO PATHOLOGY 82533 THYROID NODULE left lobe of thyroid resection 04/07/2019 12:22 PM Time specimen removed from patient: 12:22 PM Number of tissue samples (in container) 1 SPECIMEN TO PATHOLOGY 79010 THYROID NODULE right lobe of thyroid excision [...] PM EDT 04/07/2019 1:05 PM EDT Narrative [facility] - 04/07/2019 1:05 PM EDT Specimen requisition ordered. ??Separate Pathology report to follow Amara Shultz MD PATHOLOGY/CYTOLOG Y ORDERABLES [place] [address] * Surgical Pathology Report (04/07/2019 12:22 PM EDT) Final Diagnosis [id number] ? Location: SDP; SD35; A The signing [...] Maguire DO Verified: ??04/10/2019 ?Pathologist Performed at: ??-[facility] Dept. of Pathology, [place], [place] ADDITIONAL STUDIES Immunohistochemistry Studies: Formalin-fixed, paraffin-embedded [...] Inking: The thyroid capsule is inked black. Correctional Nurse sections in 32 cassettes as follows: ?A1-A2: ??All of the smaller lesion ?A3: ??Correctional Nurse of normal parenchyma and possible additional inferior nodule ?A4-A32: ??Correctional Nurse sections, to include all of the capsule, [...] Inking: The thyroid capsule is inked black. Correctional Nurse sections in 5 cassettes as follows: ?B1-B4: upper pole nodule ?B5: ??Additional wire rope sales representative of normal thyroid parenchyma ??ejr 04/10/2019 10:23 AM EDT [facility] THYROID STRUCTURE / Unknown 04/07/2019 12:22 PM EDT 04/07/2019 12:22 PM EDT THYROID STRUCTURE / Unknown 04/07/2019 12:22 PM EDT 04/07/2019 12:22 PM EDT Amara Shultz MD PATHOLOGY/CYTOLOG Y ORDERABLES [facility] [place] [address] * Specimen to Pathology (04/07/2019 12:22 PM EDT) AP Specimen 04/07/2019 12:2 2 PM EDT 04/07/2019 12:22 PM EDT Narrative [facility] - 04/07/2019 12:22 PM EDT Specimen requisition ordered. ??Separate Pathology report to follow Amara Shultz MD PATHOLOGY/CYTOLOG Y ORDERABLES [facility] [place] [address] * POCT urine (04/07/2019) POC Urine HCG [...] Routine documented in this encounter Care Teams Equipment Operation Instructor Relationship Specialty Start Date End Date Brittany Muhammad DO [address] [place] [address] PCP - General Family Medicine 01/23/19 documented as of this encounter
--- OUTSIDE RECORDS SUMMARY | 2024-07-18 02:14 | XMS_ITS | Encounter Summary ---
Author Organization [facility] [place] [address] Care Team Providers Care Engineer Soils Name Role Phone Stefanie Joy DRUMS TEACHER Primary Care Provider +1- [phone] Reason for Visit * Reason Comments Follow Up Surgery Encounter Details Date Type Department Care Team (Late st Contact Info) Description 10/08/2013 4:20 PM EST Office [place] [address] Brock Trujillo MD [facility] [place] [address] HNP (herniated nucleus pulposus), lumbar (Primary Dx) [...] myelopathy documented in this encounter Care Teams Engineer Soils Relationship Specialty Start Date End Date Stefanie Joy APRN [address] [place] [address] PCP - General 05/08/13 11/26/16 documented as of this encounter
--- OUTSIDE RECORDS SUMMARY | 2024-07-18 02:14 | XMS_ITS | Encounter Summary ---
Author Organization [facility] Address [facility] [place] [address] Care Team Providers Care Director Of Land Acquisition Name Role Phone Brittany Muhammad DO Primary Care Provider +1- [phone] Encounter Details Date Type Department Care Team (Late st Contact Info) Description 02/12/2020 Orders [place] [address] Kenia Khanna MD [facility] [place] [address] Social History Tobacco Use Types Packs/Day Years [...] filedocumented in this encounter Care Teams Director Of Land Acquisition Relationship Specialty Start Date End Date Brittany Muhammad DO [address], [place] [address] PCP - General Family Medicine 01/23/19 documented as of this encounter
--- OUTSIDE RECORDS SUMMARY | 2024-07-18 02:14 | XMS_ITS | Encounter Summary ---
Author Organization [facility] Address [facility] [place] [address] Care Team Providers Care Semiconductor Assembler Name Role Phone Brittany Muhammad Primary Care Provider +1- [phone] Reason for Visit * Reason Comments Follow-up Encounter Details Date Type Department Care Team (Late st Contact Info) Description 05/22/2019 1:30 PM EDT Office Visit [place] [address] Olive Liu MD [facility] [place] [address] S/P total thyroidectomy Social History Tobacco Use [...] status documented in this encounter Care Teams Semiconductor Assembler Relationship Specialty Start Date End Date Brittany Muhammad DO [address] [place] [address] PCP - General Family Medicine 01/23/19 documented as of this encounter
--- OUTSIDE RECORDS SUMMARY | 2024-07-18 02:14 | XMS_ITS | Encounter Summary ---
Author Organization [facility] Address [facility] Prashant hern[address] [address] Care Team Providers Care Risk And Insurance Consultant Name Role Phone Brittany Muhammad Primary Care Provider +1- [phone] Reason for Visit * Reason Comments Follow-up Encounter Details Date Type Department Care Team (Latest Contact Info) Description 07/11/2019 3:00 PM EDT Office [place] [address] Kenia Khanna MD [facility] DR [place]OCR[place] [address] Papillary microcarcinoma of thyroid; PCOS (polycystic ovarian [...] CT scan 01/22/2019 with Pulmonology (Yinka) at [facility] which reportedly did have tracheal deviation and [...] of clotting disorders. Social Hx: Lives in [facility] Former smoker- quit in 2005 Infrequent [...] Office Visit from 01/23/2019 in Endocrinology at [place] Weight 114.3 kg (252 lb) Height 157.5 [...] done Case discussed and seen with staff Prize Coordinator Marco A Benoit MD. Pt prefers to be reached at cell #[phone]. Return to care in Oct 2019. Kenia Khanna MD PGY-5 [facility] Endocrinology Fellow Pager #[phone] * Marco A Benoit MD - 07/11/2019 [...] ovaries documented in this encounter Care Teams Risk And Insurance Consultant Relationship Specialty Start Date End Date Brittany Muhammad DO [address] [place] [address] PCP - General Family Medicine 01/23/19 documented as of this encounter
--- OUTSIDE RECORDS SUMMARY | 2024-07-18 02:14 | XMS_ITS | Encounter Summary ---
Author Organization [facility] [place] [address] Care Team Providers Care Laboratory Immunologist Name Role Phone Joy, Stefaniejs Ramos APRN Primary Care Provider +1- [phone] Reason for Visit * Reason Comments Other f/u LT L4-5 Disc EXC 09/17/13 Encounter Details Date Type Department Care Team (Late st Contact Info) Description 10/31/2013 9:20 AM EST Office [place] [address] Brock Trujillo MD [facility] [place] [address] HNP (herniated nucleus pulposus), lumbar (Primary Dx) [...] myelopathy documented in this encounter Care Teams Laboratory Immunologist Relationship Specialty Start Date End Date Stefanie Joy APRN [phone] [place] [address] PCP - General 05/08/13 11/26/16 documented as of this encounter
--- OUTSIDE RECORDS SUMMARY | 2024-07-18 02:14 | XMS_ITS | Encounter Summary ---
[place] [address] Care Team Providers Care Director Critical Care Name Role Phone Stefanie Joy CAS Primary Care Provider +1- [phone] Reason for Visit * Reason Onset Date Comments Drainage from Incision 10/06/2013 Encounter Details Date Type Department Care Team (Late st Contact Info) Description 10/06/2013 Telephone [place] [address] Britt Lipscomb, RN Drainage from Incision Social [...] filedocumented in this encounter Care Teams Director Critical Care Relationship Specialty Start Date End Date Stefanie Joy APRN [phone] [place] [address] PCP - General 05/08/13 11/26/16 documented as of this encounter
--- OUTSIDE RECORDS SUMMARY | 2024-07-18 02:14 | XMS_ITS | Encounter Summary ---
Author Organization [facility] [place] [address] Care Team Providers Care Yeast Culture Operator Name Role Phone Brittany Muhammad DO Primary Care Provider +1- [phone] Reason for Visit * Reason Onset Date Comments Appointment 06/12/2019 Encounter Details Date Type Department Care Team (Late st Contact Info) Description 06/12/2019 [place] [address] Neto Ortiz Appointment Social History Tobacco Use [...] on filedocumented in this encounter Care Teams Yeast Culture Operator Relationship Specialty Start Date End Date Brittany Muhammad DO [address] [place] [address] PCP - General Family Medicine 01/23/19 documented as of this encounter
--- OUTSIDE RECORDS SUMMARY | 2024-07-18 02:14 | XMS_ITS | Encounter Summary ---
Author Organization [facility] Address [facility] [place] [address] Care Team Providers Care Absorption Operator Name Role Phone Stefanie Joy APRN Primary Care Provider +1- [phone] Encounter Details Date Type Department Care Team (Latest Contact Info) Description 10/08/2013 2:58 PM EST - 10/08/2013 11:59 PM [facility] Hospital Encounter XRay at [address] [place] [address] HNP (herniated nucleus pulposus), lumbar Social History [...] post discectomy at L4-L5. ??There are 5 hfv-mqr-[id number] lumbar type vertebral bodies. ??Again seen is [...] status post discectomy at L4-L5. There are [id number] lumbar type vertebral bodies. Again seen is [...] myelopathy documented in this encounter Care Teams Absorption Operator Relationship Specialty Start Date End Date Stefanie Joy APRN [phone] [place] [address] PCP - General 05/08/13 11/26/16 documented as of this encounter
--- OUTSIDE RECORDS SUMMARY | 2024-07-18 02:14 | XMS_ITS | Encounter Summary ---
Author Organization [facility] Address [facility] [place] [address] Care Team Providers Care Planner Intern Name Role Phone RubioBrittany reynolds Jose BARRETO Primary Care Provider +1- [phone] Encounter Details Date Type Department Care Team (Late st Contact Info) Description 04/11/2019 [place] [address] Olive Liu MD [facility] [place] [address] S/P thyroidectomy (Primary Dx); Multiple thyroid nodules [...] Stimulating Hormone 0.08(L) 0.27 - 4.20 mcIU/mL [facility] Blood specimen (specimen) 05/22/2019 12:17 PM EDT 05/22/2019 12:31 PM EDT Narrative Resulting Agency Comment Spec In Lab Olive Liu MD CHEMISTRY ORDERAB LES [facility] [place] [address] documented in this encounter Visit Diagnoses Diagnosis S/P thyroidectomy- Primary Other postprocedural status Multiple thyroid nodules Nontoxic multinodular goiter documented in this encounter Care Teams Planner Intern Relationship Specialty Start Date End Date Brittany Muhammad DO [address] [facility] [place] [address] PCP - General Family Medicine 01/23/19 documented as of this encounter
--- OUTSIDE RECORDS SUMMARY | 2024-07-18 02:14 | XMS_ITS | Encounter Summary ---
Author Organization [facility] Address [facility] [place] [address] Care Team Providers Care Intelligent Systems Engineer Name Role Phone MurielBrittany nieves Primary Care Provider +1- [phone] Encounter Details Date Type Department Care Team (Late st Contact Info) Description 04/11/2019 Telephone [place] [address] Olive Liu MD [facility] [place] [address] Social History Tobacco Use Types Packs/Day Years [...] on filedocumented in this encounter Care Teams Intelligent Systems Engineer Relationship Specialty Start Date End Date Brittany Muhammad DO [address] [facility] [place] [address] PCP - General Family Medicine 01/23/19 documented as of this encounter
--- OUTSIDE RECORDS SUMMARY | 2024-07-18 02:14 | XMS_ITS | Encounter Summary ---
Author Organization [facility] [place] [address] Care Team Providers Care Oil Expert Name Role Phone Stefanie Joy CAS Primary Care Provider +1- [phone] Reason for Visit * Reason Comments Low Back Pain Encounter Details Date Type Department Care Team (Late st Contact Info) Description 03/30/2014 3:40 PM EDT Office Visit [place] [address] Brock Trujillo MD [facility] [address] Recurrent herniation of lumbar disc (Primary Dx) [...] myelopathy documented in this encounter Care Teams Oil Expert Relationship Specialty Start Date End Date Stefanie Joy APRN [phone] [place] [address] PCP - General 05/08/13 11/26/16 documented as of this encounter
--- OUTSIDE RECORDS SUMMARY | 2024-07-18 02:14 | XMS_ITS | Encounter Summary ---
[place] [address] Care Team Providers Care Drywall Taper Name Role Phone Brittany Muhammad DO Primary Care Provider +1- [phone] Encounter Details Date Type Department Care Team (Latest Contact Info) Description 07/11/2019 2:00 PM EDT Laboratory Appointment Lab [address] [place] [address] Papillary microcarcinoma of thyroid Social History Tobacco [...] 1:51 PM EDT) Thyroglobulin 0.6 <=54.9 ng/mL [facility] Thyroglob Ab <20.0 0.0 - 40.0 IU/mL [facility] Blood specimen (specimen) 07/11/2019 1:51 PM EDT 07/13/2019 7:30 AM EDT Narrative Resulting Agency Comment Spec In Lab Marco A Benoit MD LAB SEND OUT ORDERAB LES Performing Organization Address City/[facility] Co de Phone Number [facility] [place] [address] * TSH (07/11/2019 1:51 PM EDT) Thyroid Stimulating Hormone 1.95 0.27 - 4.20 mcIU/mL [facility] Blood specimen (specimen) 07/11/2019 1:51 PM EDT 07/11/2019 1:54 PM EDT Narrative Resulting Agency Comment Spec In Lab Marco A Benoit MD CHEMISTRY ORDERABLES Performing Organization Address City/[facility] Co de Phone Number [facility] [place] [address] * T4, free (07/11/2019 1:51 PM EDT) Free T4 1.62 0.93 - 1.70 ng/dL [facility] Blood specimen (specimen) 07/11/2019 1:51 PM EDT 07/11/2019 1:54 PM EDT Narrative Resulting Agency Comment Spec In Lab Marco A Benoit MD CHEMISTRY ORDERABLES Performing Organization Address City/[facility]/ZIP Co de Phone Number [facility] [place] [address] documented in this encounter Visit Diagnoses Diagnosis Papillary microcarcinoma of thyroid documented in this encounter Care Teams Drywall Taper Relationship Specialty Start Date End Date Brittany Muhammad DO [address] [place] [address] PCP - General Family Medicine 01/23/19 documented as of this encounter
--- OUTSIDE RECORDS SUMMARY | 2024-07-18 02:14 | XMS_ITS | Encounter Summary ---
Author Organization [facility] Address [facility] [place] [address] Care Team Providers Care Cider Maker Name Role Phone Brittany Muhammad Primary Care Provider +1- [phone] Encounter Details Date Type Department Care Team (Late st Contact Info) Description 02/11/2019 Telephone [place] [address] Kenia Khanna MD [facility] [place] [address] Social History Tobacco Use Types Packs/Day Years [...] of the lesion. Kenia Khanna MD PGY-4 [facility] Endocrinology Fellow Pager #[phone] documented in this encounter Plan of Treatment Not on file documented as of this encounter Visit Diagnoses Not on filedocumented in this encounter Care Teams Cider Maker Relationship Specialty Start Date End Date Brittany Muhammad DO [address] [place] [address] PCP - General Family Medicine 01/23/19 documented as of this encounter
--- OUTSIDE RECORDS SUMMARY | 2024-07-18 02:14 | XMS_ITS | Encounter Summary ---
Author Organization [facility] Address [facility] [place] [address] Care Team Providers Care Supervisor Extrusion Name Role Phone Stefanie Joy APRN Primary Care Provider +1- [phone] Encounter Details Date Type Department Care Team (Late st Contact Info) Description 01/20/2014 Telephone Nephrology Hypertension at [facility] [place] [address] Alex Marr MD [facility] [place] [address] Social History Tobacco Use Types Packs/Day Years [...] filedocumented in this encounter Care Teams Supervisor Extrusion Relationship Specialty Start Date End Date Stefanie Joy APRN [phone] [place] [address] PCP - General 05/08/13 11/26/16 documented as of this encounter
--- OUTSIDE RECORDS SUMMARY | 2024-07-18 02:15 | XMS_ITS | Encounter Summary ---
Author Organization [facility] Address [facility] [place] [address] Care Team Providers Care Pleat Taper Name Role Phone Santizo, Stefaniejs Ramos APRN Primary Care Provider +1- [phone] Reason for Visit * Reason Comments Back Pain Encounter Details Date Type Department Care Team (Latest Contact Info) Description 07/22/2013 7:00 AM EDT Procedure visit [place] [address] Iza Giles MD [address] [place] [address] Iza Giles MD [facility] [place] [address] HNP (herniated nucleus pulposus), lumbar Discharge Disposition: [...] 2. 3. Patient states they have a inventory associate and driver to transport after procedure? Yes 4. [...] benefit of the procedure werereviewed with Ms. Alejander, and her voiced concerns were addressed. The [...] discharge criteria to the care of a inventory associate and driver. The patient received written instructions as [...] discharge criteria ??to the care of a inventory associate and driver. ??The patient received written instructions as [...] discharge criteria to the care of a inventory associate and driver. The patientreceived written instructions as documented in nursing records. COMMENTS: The patient tolerated the procedure well. She will follow up int [facility] Center for continued management, and in the Pain Clinic asneeded. CC: STEFANIE SANTIZO APRN @[email or web address]@ I was the attending physician supervising the fellow or resident in [facility] and I was present with [...] mL documented in this encounter Care Teams Pleat Taper Relationship Specialty Start Date End Date Stefanie Santizo APRN [phone] [place] [address] PCP - General 05/08/13 11/26/16 documented as of this encounter
--- OUTSIDE RECORDS SUMMARY | 2024-07-18 02:15 | XMS_ITS | Encounter Summary ---
Author Organization [facility] [place] [address] Care Team Providers Care Acting Teacher Name Role Phone Stefanie Joy APRN Primary Care Provider +1- [phone] Reason for Referral * Consultation (Routine) - Closed Specialty Diagnoses / Procedures Referred By Contac t Referred To Contact Pain Management Diagnoses HNP (herniated nucleus pulposus), lumbar Brock Trujillo MD [facility] [place] [address] [facility] [address] [place] [address] Referral ID Status Reason Start Date Expiration Date V isits Requested Visits Authorized [id number] Closed Consult Only 07/17/2013 01/13/2014 1 1 Reason for Visit * Reason Comments Back Pain Encounter Details Date Type Department Care Team (Late st Contact Info) Description 07/17/2013 12:15 PM EDT Office [place] [address] Brock Trujillo MD [facility] [place] [address] HNP (herniated nucleus pulposus), lumbar (Primary Dx) [...] SOCIAL HISTORY: The patient last worked in [employer] service in 2004. She is disabled due [...] myelopathy documented in this encounter Care Teams Acting Teacher Relationship Specialty Start Date End Date Stefanie Joy APRN [phone] [place] [address] PCP - General 05/08/13 11/26/16 documented as of this encounter
--- OUTSIDE RECORDS SUMMARY | 2024-07-18 02:15 | XMS_ITS | Encounter Summary ---
[place] [address] Care Team Providers Care Senior Grant Writer Name Role Phone JoyMarlyjs Ramos APRN Primary Care Provider +1- [phone] Encounter Details Date Type Department Care Team (Late st Contact Info) Description 08/06/2013 Telephone [place] [address] Sheree Reyes Social History Tobacco Use Types [...] Lumbago documented in this encounter Care Teams Senior Grant Writer Relationship Specialty Start Date End Date Stefanie Joy, MANPOWER DEVELOPMENT ADVISOR [phone] [place] [address] PCP - General 05/08/13 11/26/16 documented as of this encounter
--- OUTSIDE RECORDS SUMMARY | 2024-07-18 02:15 | XMS_ITS | Encounter Summary ---
Author Organization [facility] Address [facility] [place] [address] Care Team Providers Care Orthopedic Nurse Name Role Phone Diallo Rojas APRN Primary Care Provider Encounter Details Date Type Department Care Team (Late st Contact Info) Description 08/26/2012 9:45 AM EST Office Visit Hematology [place] [address] Constantine Harris MD [facility] DR HEMATOLOGY [place] [address] Elevated hemoglobin (Primary Dx) Discharge Disposition: Home [...] gait disturbance, focal weakness PMH: Depression/PTSD Med: [id number] daily (she takes for joint pains) Temazepam FH: Mother: living at age 58 (doesn't see Drs, therefore hx unknown) Father: living at age 62 (doesn't see Drs, therefore hx unknown) Sister: 37, well Sister: 25, well Brother: 34, well No children Social: Lives alone. . Has 3 cats. On disability for PTSD and doesn't work. 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 5-6 pack year smoking hx - none [...] * (ABNORMAL) Ferritin (08/26/2012 11:00 AM EST) [facility] Ferritin 330(H) 15 - 150 ng/mL [...] Harris MD CHEMISTRY ORDERABLES Performing Organization Address [facility] Co de Phone Number PHAM PATENNIUM [...] Harris MD CHEMISTRY ORDERABLES Performing Organization Address [facility] de Phone Number CERLAUREL MILLENNIUM * [...] hemoglobinopathies documented in this encounter Care Teams Orthopedic Nurse Relationship Specialty Start Date End Date Diallo Rojas APRN PCP - General 08/26/12 05/07/13 documented as of this encounter
--- OUTSIDE RECORDS SUMMARY | 2024-07-18 02:15 | XMS_ITS | Encounter Summary ---
Author Organization [facility] [place] [address] Care Team Providers Care Wardrobe Manager Name Role Phone Stefanie Joy APRN Primary Care Provider +1- [phone] Encounter Details Date Type Department Care Team (Late st Contact Info) Description 07/08/2013 Orders [place] [address] Brock Trujillo MD [facility] [place] [address] Social History Tobacco Use Types Packs/Day Years [...] FILM LIBRARY ORD ERABLES DH RAD [address] [place] [address] documented in this encounter Visit Diagnoses Not on filedocumented in this encounter Care Teams Wardrobe Manager Relationship Specialty Start Date End Date Stefanie Joy, CAS [phone] [place] [address] PCP - General 05/08/13 11/26/16 documented as of this encounter
--- OUTSIDE RECORDS SUMMARY | 2024-07-18 02:15 | XMS_ITS | Encounter Summary ---
Author Organization [facility] Address [facility] Pr[address] hern[address] [address] Care Team Providers Care Cook Fry Name Role Phone Stefanie Joy APRN Primary Care Provider +1- [phone] Encounter Details Date Type Department Care Team (Late st Contact Info) Description 07/22/2013 Orders Only [place] [address] Skyla Giles MD [facility] [place] [place] [address] Social History Tobacco Use Types Packs/Day Years [...] - 05/27/2014 This is a non-reportable exam. Skyla Giles MD IM FILM LIBRARY ORD ERABLES RAD [address] [place] [address] documented in this encounter Visit Diagnoses Not on filedocumented in this encounter Care Teams Cook Fry Relationship Specialty Start Date End Date Stefanie Joy APRN [phone] [place] [address] PCP - General 05/08/13 11/26/16 documented as of this encounter
--- OUTSIDE RECORDS SUMMARY | 2024-07-18 02:15 | XMS_ITS | Encounter Summary ---
Author Organization [facility] Address [facility] [place] [address] Care Team Providers Care Acquisition Marketing Manager Name Role Phone Diallo Rojas APRN Primary Care Provider +1- [phone] Encounter Details Date Type Department Care Team (Late st Contact Info) Description 02/25/2013 Orders Only Nephrology Hypertension at [facility] [place] [address] Alex Marr MD [facility] [place] [address] Social History Tobacco Use Types Packs/Day Years [...] a non-reportable exam. Alex Aydin Marr MD IMMaragrita FILM LIBRARY ORD ERABLES RAD [address] [place] [address] documented in this encounter Visit Diagnoses Not on filedocumented in this encounter Care Teams Acquisition Marketing Manager Relationship Specialty Start Date End Date Diallo Rojas, BALL THREAD MACHINE TENDER PCP - General 08/26/12 05/07/13 documented as of this encounter
--- OUTSIDE RECORDS SUMMARY | 2024-07-18 02:15 | XMS_ITS | Encounter Summary ---
Author Organization [facility] Address [facility] [address] her[place] [address] Care Team Providers Care Ticket Taker Name Role Phone Rufino Stefaniejs Ramos APRN Primary Care Provider +1- [phone] Reason for Visit * Reason Comments Chronic Kidney Disease Encounter Details Date Type Department Care Team (Late st Contact Info) Description 05/08/2013 1:00 PM EDT Follow-Up Nephrology [place] [address] Alex Marr MD [facility] [address] Renal insufficiency (Primary Dx); History of nephrolithiasis; [...] 1:14 PM EDT Nephrology/Hypertension Clinic Follow-up Note [id number] ID: 38 y.o.year-old female for follow up [...] excretion. See scanned data. Results for GENIE ESTRDAA ( ) as of 05/09/2013 17:19 Ref. [...] by her primaryprovider. 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 F/u in spring CC: STEFANIE SANTIZO APRN [address] [place] [address] documented in this encounter Plan of Treatment [...] Marr MD CHEMISTRY ORDERABLES Performing Organization Address [facility] de Phone Number CERNER ADILIAENNIUM * Phosphorus (05/08/2013 1:41 PM EDT) Phosphorus 3.3 2.5 - 4.5 mg/dL CERNER MILLENNIUM Blood specimen (specimen) 05/08/2013 1:41 PM EDT 05/08/2013 1:44 PM EDT Narrative Resulting Agency Comment Spec In Lab Alex Marr MD CHEMISTRY ORDERABLES Performing Organization Address [facility] de Phone Number CERNER MILLENNIUM * (ABNORMAL) Basic Metabolic Panel (non-fasting) (05/08/2013 1:41 PM EDT) Glucose 82 60 - 199 mg/dL CERNER MILLENNIUM Comment:Diabetes: >=200 mg/d L plus symptoms Blood Urea Nitrogen 24(H) 8 - 18 mg/dL CERNER MILLENNIUM Creatinine 1.10 0.70 - 1.20 mg/dL CERNER MILLENNIUM Comment: Please note that the pediatric reference intervals supplied above were not validated at [facility]. Results from pediatric patients should be interpreted [...] ureter documented in this encounter Care Teams Ticket Taker Relationship Specialty Start Date End Date Stefanie Santizo APRN [phone] [place] [address] PCP - General 05/08/13 11/26/16 documented as of this encounter
--- OUTSIDE RECORDS SUMMARY | 2024-07-18 02:15 | XMS_ITS | Encounter Summary ---
[facility] Organization [facility] [place] [address] Care Team Providers Care Mechanical Commissioning Engineer Name Role Phone Marly Joyjs Ramos APRN Primary Care Provider +1- [phone] Encounter Details Date Type Department Care Team (Late st Contact Info) Description 08/14/2013 12:00 PM EST Clinical [place] [id number] Social History Tobacco Use Types Packs/Day Years [...] a zachary when she was [age] in [facility] and did fine with general anesthesia. Blood work and T&S today for OR with Cassandra on 09/17. documented in this encounter Plan of Treatment Not on file documented as of this encounter Visit Diagnoses Not on filedocumented in this encounter Care Teams Mechanical Commissioning Engineer Relationship Specialty Start Date End Date Stefanie Joy APRN [phone] [place] [address] PCP - General 05/08/13 11/26/16 documented as of this encounter
--- OUTSIDE RECORDS SUMMARY | 2024-07-18 02:15 | XMS_ITS | Encounter Summary ---
Author Organization [facility] Address [facility] [place] [address] Care Team Providers Care Reverberatory Furnace Supervisor Name Role Phone Stefanie Joy APRN Primary Care Provider +1- [phone] Encounter Details Date Type Department Care Team (Late st Contact Info) Description 07/16/2013 External Results XRay at [address] [place] [address] Provider, Scanning Social History Tobacco Use Types [...] on filedocumented in this encounter Care Teams Reverberatory Furnace Supervisor Relationship Specialty Start Date End Date Stefanie Joy APRN [phone] [place] [address] PCP - General 05/08/13 11/26/16 documented as of this encounter
--- OUTSIDE RECORDS SUMMARY | 2024-07-18 02:15 | XMS_ITS | Encounter Summary ---
Author Organization [facility] Address [facility] Prashant [place] [address] Care Team Providers Care Shuttle Fixer Name Role Phone Diallo Huang APRN Primary Care Provider +1- [phone] Reason for Visit * Reason Comments Chronic Kidney Disease Encounter Details Date Type Department Care Team (Latest Contact Info) Description 03/03/2013 2:30 PM EDT Office Visit [place] [address] Alex Marr MD [facility] [place] [address] CKD (chronic kidney disease) (Primary Dx); Renal [...] PM EDT Hypertension/Nephrology Consultation Genie Amaya Dolly [id number] 1975 ID: [id number] y.o. old female seen [...] this one spontaneously. About 10-12 years, in [place], she underwent endoscopic removal of a stone. [...] healthy. Social History: Born and raised in [facility]. 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 Quit tobacco 5-6 years ago (1ppd for [...] see if any parts enhance; discussed with [facility] radiology). Psoriasis can be associated with IgA [...] APRN [address] [place] [address] documented in this encounter Plan of Treatment [...] EDT Alex Marr MD HEMATOLOGY ORDERABLE S [facility] * High Sensitivity CRP (03/03/2013 3:48 [...] Marr MD CHEMISTRY ORDERABLES Performing Organization Address [facility] de Phone Number PHAM LOUIEIUM * (ABNORMAL) Uric acid (03/03/2013 3:48 PM EDT) Uric Acid 6.6(H) 2.5 - 6.5 mg/dL PHAM LOUIEIUM Blood specimen (specimen) 03/03/2013 3:48 PM EDT 03/03/2013 3:53 PM EDT Narrative Resulting Agency Comment Spec In Lab Alex Marr MD CHEMISTRY ORDERABLES Performing Organization Address [facility] de Phone Number PHAM LOUIEIUM * Albumin Level (03/03/2013 3:48 PM EDT) Albumin 4.2 3.2 - 5.2 gm/dL PHAM LOUIEIUM Blood specimen (specimen) 03/03/2013 3:48 PM EDT 03/03/2013 3:53 PM EDT Narrative Resulting Agency Comment Spec In Lab Alex Marr MD CHEMISTRY ORDERABLES Performing Organization Address [facility] de Phone Number PHAM LOUIEIUM * PTH (03/03/2013 3:48 PM EDT) Parathyroid Hormone 37 15 - 65 pg/mL CERNER MILLENNIUM Blood specimen (specimen) 03/03/2013 3:48 PM EDT 03/03/2013 3:52 PM EDT Narrative Resulting Agency Comment Spec In Lab Alex Marr MD CHEMISTRY ORDERABLES Performing Organization Address City/[facility]/ZIP Co de Phone Number CERNER MILLENNIUM * [...] intervals supplied above were not validated at [facility]. Results from pediatric patients should be interpreted [...] Marr MD CHEMISTRY ORDERABLES Performing Organization Address [facility] Phone Number [facility] iSn[employer]ENNIUM * Microalbumin, urine, random (03/03/2013 3:15 PM EDT) Creatinine, Urine 199 mg/dL CE RNER MILLENNIUM Albumin, Urine <3.0 mg/L CERNE R MILLENNIUM Albumin / Creatinin Ratio, Urine <2 mcg/mg Cr CERNER MILLENNIUM Comment: Reference Range* Random collection (mcg/mg creatinine) Normal ?<30 Microalbuminuria ?? 30 - 300 Clinical Albuminuria ?? >300 *[place] [employer]. Diabetic Nephropathy. Diabetes Care 1997;(Suppl 1):S24-S27 Exercise within 24 hour, infection, fever, CHF, marked hyperglycemia, and marked hypertension may elevate urinary albumin excretion over baseline values. Urine specimen (specimen) 03/03/2013 3:15 PM EDT 03/03/2013 3:28 PM EDT Narrative Resulting Agency Comment Spec In Lab Alex Marr MD URINE ORDERABLES Performing Organization Address [facility] Phone Number [facility] [employer] documented in this encounter Visit Diagnoses Diagnosis [...] hypertension documented in this encounter Care Teams Shuttle Fixer Relationship Specialty Start Date End Date Diallo Huang APRN PCP - General 08/26/12 05/07/13 documented as of this encounter
--- OUTSIDE RECORDS SUMMARY | 2024-07-18 02:15 | XMS_ITS | Encounter Summary ---
Author Organization [facility] Address [facility] [place] [place] [address] Care Team Providers Care Income Tax Expert Name Role Phone Stefanie Joy APRN Primary Care Provider +1- [phone] Encounter Details Date Type Department Care Team (Latest Contact Info) Description 08/14/2013 10:25 AM EST - 08/14/2013 12:28 PM [facility] Hospital Encounter XRay at [address] [place] [address] Low back pain radiating to left leg [...] Lumbago documented in this encounter Care Teams Income Tax Expert Relationship Specialty Start Date End Date Stefanie Joy, DIGITAL ARCHIVIST [phone] [place] [address] PCP - General 05/08/13 11/26/16 documented as of this encounter
--- OUTSIDE RECORDS SUMMARY | 2024-07-18 02:15 | XMS_ITS | Encounter Summary ---
Author Organization [facility] Address [facility] [place] [address] Care Team Providers Care Childcare Center Director Name Role Phone Marly Joyjs Ramos APRN Primary Care Provider +1- [phone] Reason for Visit * Reason Comments Back Pain Left Leg Pain Encounter Details Date Type Department Care Team (Late st Contact Info) Description 08/14/2013 11:00 AM EST Office [place] [address] Brock Trujillo MD [facility] [place] [address] HNP (herniated nucleus pulposus), lumbar (Primary Dx); [...] post discectomy at L4-L5. ??There are 5 pfy-xeh-ddokxhu lumbar type vertebral bodies. ??Again seen is [...] status post discectomy at L4-L5. There are 8ekg-edv-gkayqit lumbar type vertebral bodies. Again seen is [...] Time 13.7 12.0 - 15.0 sec PHAM [facility] Comment: [facility] Transfusion Committee Guidelines: INR less than 2.0, PTT less than OR equal to 43.5 seconds, or Fibrinogen greater than or equal to 100 mg/dl indicate adequate procoagulant activity for hemostasis in patients without underlying bleeding disorders. International Normalization Ratio 1.0 0.9 - 1.1 [facility] MILLENNIUM Blood specimen (specimen) 08/14/2013 12:40 PM [...] supplied above were not validated at [facility]. Results from pediatric patients should be interpreted [...] Trujillo MD CHEMISTRY ORDERABLES Performing Organization Address City/[facility] Co de Phone Number CERNER MILLENNIUM [...] MD HEMATOLOGY ORDERABLE S Performing Organization Address City/[facility] Co de Phone Number CERLAUREL LOUIEIUM documented in this encounter Visit Diagnoses Diagnosis HNP (herniated nucleus pulposus), lumbar- Primary Displacement of lumbar intervertebral disc without myelopathy Acute leg pain Pain in limb HNP (herniated nucleus pulposus), lumbar Displacement of lumbar intervertebral disc without myelopathy documented in this encounter Care Teams Childcare Center Director Relationship Specialty Start Date End Date Stefanie Joy, MOBILE UNIT ASSISTANT [phone] [place] [address] PCP - General 05/08/13 11/26/16 documented as of this encounter
[2024-07-18 12:20] LABS: Iron 70 ug/dL (50-170); Total Iron Binding Capacity 389 ug/dL (250-450); Transferrin Sat 18 % (15-50)
[2024-07-18 12:30] LABS: TSH (W/Ref FT4) 0.48 uIU/mL (0.36-3.74)
[2024-07-18 12:49] LABS: Anion Gap 13.1 mmol/L (3-11); BUN 19 mg/dL (7-18); CO2 21.9 mmol/L (21.0-32.0); CREATININE 1.6 mg/dL (0.55-1.02); Calcium 9.4 mg/dL (8.5-10.1); Chloride 101 mmol/L (98-107); Estimated GFR 38.81 (mL/min/1.73m2); Ferritin 122 ng/mL (8-252); Glucose 114 mg/dL (74-106); Potassium 3.8 mmol/L (3.5-5.1); Sodium 136 mmol/L (136-145); Vitamin D 25 Total 50.6 ng/mL (30-100)
== END 2024-07-18 01:58 | disposition home or self-care (01) ==
PROVIDERS: PCP Student in an Organized Health Care Education/Training Program; Visit Provider Internal Medicine Endocrinology, Diabetes & Metabolism
DX: E61.1 Iron deficiency (principal); Z86.2 Personal history of diseases of the blood and blood-forming organs and certain disorders involving the immune mechanism; Z91.89 Other specified personal risk factors, not elsewhere classified; N18.9 Chronic kidney disease, unspecified; K90.9 Intestinal malabsorption, unspecified; I10 Essential (primary) hypertension; E89.0 Postprocedural hypothyroidism
CPT/HCPCS: 36415; 80048; 82306; 82728; 83540; 83550; 84443

== ENCOUNTER 2024-07-22 11:52 | Outpatient (CLI) | payer OTHER, MEDICAID, SELFPAY ==
--- NOTE | 2024-07-22 11:45 | RT.EKG_ITS ---
APPROVED REPORT Exam: Resting ECG Reason for Exam: Oniel - high risk medication use Patient Location: O HR:75 bpm ECG Measurements Heart Rate 75 AXIS WV 215 P 41 QRSd 82 QRS -21 QT 380 T 42 QTc 425 Conclusion Sinus rhythm...normal P axis, V-rate 50- 99 Prolonged WV interval...WV >210, V-rate 50- 90
== END 2024-07-22 11:53 | disposition home or self-care (01) ==
LOC: DI.KIM 11:53
PROVIDERS: PCP Student in an Organized Health Care Education/Training Program; Visit Provider Student in an Organized Health Care Education/Training Program
DX: Z79.899 Other long term (current) drug therapy (principal)
CPT/HCPCS: 93010

== ENCOUNTER 2024-07-25 00:21 | Outpatient (CLI) | payer OTHER, MEDICAID, SELFPAY ==
--- NOTE | 2024-07-25 13:30 | DI.RAD_ITS ---
Exam(s) XR HIP LT COMPLETE AP PELVIS EXAM: XR HIP LT COMPLETE AP PELVIS CLINICAL HISTORY: New onset L hip pain,m25.552. TECHNIQUE: 2D digital imaging was performed. COMPARISON: No exams were available for comparison FINDINGS: Two views No evidence of pelvic nor hip fracture. No hip joint space narrowing. Additional lateral view of th e left hip reveals no joint space narrowing nor osteophytes but does reveal calcific density adjacent to the in greater trochanter questionable significance. SI joints appear unremarkable. There is disc space narrowing at L4-5 level. A single surgical clip is seen in the right iliac fossa. IMPRESSION: As above. No fractures nor degenerative changes in the hips. DATA REPOSITORY: RADIATION DOSE DELIVERED:
== END 2024-07-25 00:41 ==
LOC: DI 00:22
PROVIDERS: PCP Student in an Organized Health Care Education/Training Program; Visit Provider Student in an Organized Health Care Education/Training Program
DX: M25.552 Pain in left hip (principal)
CPT/HCPCS: 73502